=== PATIENT | male | born 1960 | race Caucasian/White ===

== ENCOUNTER → 2018-04-02 | Outpatient (CLI) | payer BC ==
[2018-04-02 12:33] LABS: Basophils % (A) 0 %; Eosinophils # (A) 0.2 k/uL (0-0.7); Eosinophils % (A) 4 %; HCT 30.6 % (39.0-53.0); HGB 9.7 gm/dL (13.0-17.5); Lymphocytes # (A) 0.8 k/uL (1.0-4.8); Lymphocytes % (A) 20 %; MCH 25.2 pg (25.0-35.0); MCHC 31.7 g/dL (31.0-37.0); MCV 79.5 fL (80.0-100.0); Mean Platelet Volume 7.1; Monocytes # (A) 0.2 k/uL (0-1.0); Monocytes % (A) 5 %; Neutrophils # (A) 2.8 k/uL (1.3-7.7); Neutrophils % (A) 69 %; Platelet Count 217 k/uL (150-450); RBC 3.85 m/uL (4.30-5.90); RDW 14.6 % (11.5-15.5)
[2018-04-02 12:53] LABS: Partial Thromboplastin Time 25.7 sec (22.0-30.0); Prothrombin Time 10.4 sec (9.0-12.0)
[2018-04-02 19:28] LABS: Anion Gap 7.2 mmol/L (4.00-12.00); Carbon Dioxide 25.8 mmol/L (21.6-31.8); Potassium 4.8 mmol/L (3.5-5.5)
== END ==
LOC: LABWHC1 11:33
PROVIDERS: ATTEND Internal Medicine
DX: R80.9 Proteinuria, unspecified (principal)
CPT/HCPCS: 36415; 80051; 82565; 84520; 85025; 85610; 85730

== ENCOUNTER → 2018-05-13 | Outpatient (CLI) | payer BC ==
[2018-05-13 13:36] LABS: Basophils % (A) 0 %; Eosinophils # (A) 0.1 k/uL (0-0.7); Eosinophils % (A) 2 %; HCT 32.5 % (39.0-53.0); HGB 10.1 gm/dL (13.0-17.5); Lymphocytes # (A) 0.8 k/uL (1.0-4.8); Lymphocytes % (A) 10 %; MCH 25.2 pg (25.0-35.0); MCHC 31.2 g/dL (31.0-37.0); MCV 80.9 fL (80.0-100.0); Mean Platelet Volume 6.7; Monocytes # (A) 0.3 k/uL (0-1.0); Monocytes % (A) 4 %; Neutrophils # (A) 6.4 k/uL (1.3-7.7); Neutrophils % (A) 83 %; Platelet Count 208 k/uL (150-450); RBC 4.02 m/uL (4.30-5.90); RDW 15.3 % (11.5-15.5); WBC 7.7 k/uL (3.8-10.6)
[2018-05-13 13:41] LABS: Partial Thromboplastin Time 24.7 sec (22.0-30.0); Prothrombin Time 10.5 sec (9.0-12.0)
[2018-05-13 18:50] LABS: Anion Gap 6.7 mmol/L (4.00-12.00); Carbon Dioxide 25.3 mmol/L (21.6-31.8)
== END | disposition home or self-care (01) ==
LOC: LABWHC1 12:21
PROVIDERS: ATTEND Internal Medicine
DX: R80.9 Proteinuria, unspecified (principal)
CPT/HCPCS: 36415; 80051; 82565; 84520; 85025; 85610; 85730; 86850; 86900; 86901

== ENCOUNTER → 2018-05-14 | Day surgery (SDC) | payer BC ==
[~2018-05-14] MED LIST: ALPRAZolam 0.5 MG TAB PO STA; DESMOPRESSIN ACETATE 22 MCG in SODIUM CHLORIDE 0.9% 50 ML IVPB ONE; DESMOPRESSIN ACETATE 4 MCG/ML VIAL (MDV) IVPB ONE
[2018-05-14 10:29] VITALS: RESP 16; TEMP 97.6
[2018-05-14 11:53] VITALS: BP 146/86; PULSE 78
--- NOTE | 2018-05-14 14:52 | CT ---
DATE OF EXAM: 05/14/2018 COMPARISON: NONE CT DLP: 1570 mGycm HISTORY: Renal failure PROCEDURE: Maximal barrier technique was utilized. After informed consent, the skin overlying a suit able path to the right kidney was localized using CT guidance, the skin was prepped and draped. Lido frieda was used for local anesthesia. A skin dominick made with a scalpel. Using CT guidance, a 17-gauge needle was advanced into in position at the inferior cortex of the right kidney where coaxial placem ent of an 18-gauge needle was used and core biopsy obtained. Six passes made in total, 3 passes yiel ded only fat. Hemostasis was achieved. There was no immediate complication and patient remained in stable condition. Specimen submitted to Pathology. IMPRESSION: Status post CT guided core biopsy of right renal cortex, pathology pending. This procedu re performed by the undersigned.
== END ==
LOC: RADPROMAIN 08:02
PROVIDERS: ATTEND Internal Medicine Nephrology
DX: N26.9 Renal sclerosis, unspecified (principal); E11.21 Type 2 diabetes mellitus with diabetic nephropathy
CPT/HCPCS: 36415; 50200; 77012; J2597; 86850; 86900; 86901

== ENCOUNTER → 2018-07-01 | Outpatient (CLI) | payer BC ==
[2018-07-01 16:02] LABS: HCT 33.4 % (39.0-53.0); HGB 10.5 gm/dL (13.0-17.5); MCH 25.3 pg (25.0-35.0); MCHC 31.4 g/dL (31.0-37.0); MCV 80.7 fL (80.0-100.0); Mean Platelet Volume 7.1; Platelet Count 238 k/uL (150-450); RBC 4.13 m/uL (4.30-5.90); WBC 6.5 k/uL (3.8-10.6)
[2018-07-01 16:15] LABS: Appearance,Urine Clear (Clear); Bilirubin,Urine Negative (Negative); Blood,Urine Trace (Negative); Color,Urine Light Yellow; Glucose,Urine (UA) Negative (Negative); Ketones,Urine Negative (Negative); Leukocyte Esterase,Urine Negative (Negative); Mucus,Urine Rare /hpf; Nitrite,Urine Negative (Negative); Protein,Urine 1+ (Negative); RBC,Urine 3 /hpf (0-5); Urobilinogen,Urine <2.0 mg/dL (<2.0); WBC,Urine <1 /hpf (0-5)
[2018-07-02 00:36] LABS: Parathyroid Hormone Intact 78.8 pg/mL (14.0-72.0)
[2018-07-02 01:26] LABS: Hemoglobin A1C 7.3 % (4.0-6.0)
[2018-07-02 02:12] LABS: Vitamin D 25 Hydroxy 25.2 ng/mL (30.0-100.0)
[2018-07-02 02:54] LABS: Albumin 4.1 g/dL (3.80-4.90); Anion Gap 9.8 mmol/L (4.00-12.00); Calcium 9.2 mg/dL (8.7-10.3); Carbon Dioxide 22.2 mmol/L (21.6-31.8); Phosphorus 3.9 mg/dL (2.4-5.1); Potassium 4.6 mmol/L (3.5-5.5); Uric Acid 6.6 mg/dL (3.7-8.7)
[2018-07-02 07:29] LABS: Creatinine,Urine Random 72.6 mg/dL
[2018-07-02 07:45] LABS: Total Protein,Urine Random 89.4 mg/dL (0.0-13.5)
[2018-07-02 15:50] LABS: Iron Saturation 14.76 (15.00-50.00)
== END | disposition home or self-care (01) ==
LOC: LABWHC1 14:57
PROVIDERS: ATTEND Nurse Practitioner Family
DX: E55.9 Vitamin D deficiency, unspecified (principal); E79.0 Hyperuricemia without signs of inflammatory arthritis and tophaceous disease; D50.9 Iron deficiency anemia, unspecified; E11.22 Type 2 diabetes mellitus with diabetic chronic kidney disease; N18.3 Chronic kidney disease, stage 3 (moderate); D63.1 Anemia in chronic kidney disease; N39.0 Urinary tract infection, site not specified; N25.81 Secondary hyperparathyroidism of renal origin
CPT/HCPCS: 36415; 80048; 81001; 82040; 82306; 82570; 82728; 83036; 83540; 83550; 83735; 83970; 84100; 84156; 84550; 85027

== ENCOUNTER → 2018-10-07 | Outpatient (CLI) | payer BC ==
[2018-10-07 11:23] LABS: HCT 31.7 % (39.0-53.0); HGB 9.8 gm/dL (13.0-17.5); MCH 25.6 pg (25.0-35.0); MCV 82.4 fL (80.0-100.0); Mean Platelet Volume 7.2; Platelet Count 193 k/uL (150-450); RBC 3.84 m/uL (4.30-5.90); RDW 14.7 % (11.5-15.5); WBC 5.3 k/uL (3.8-10.6)
[2018-10-07 11:30] LABS: Appearance,Urine Clear (Clear); Bilirubin,Urine Negative (Negative); Blood,Urine Trace (Negative); Color,Urine Light Yellow; Glucose,Urine (UA) Negative (Negative); Ketones,Urine Negative (Negative); Leukocyte Esterase,Urine Negative (Negative); Mucus,Urine Rare /hpf; Nitrite,Urine Negative (Negative); PH, Urine 5.5 (5.0-8.0); Protein,Urine 1+ (Negative); RBC,Urine <1 /hpf (0-5); Specific Gravity,Urine 1.012 (1.001-1.035); Urobilinogen,Urine <2.0 mg/dL (<2.0); WBC,Urine <1 /hpf (0-5)
[2018-10-07 16:37] LABS: Iron Saturation 16.81 (15.00-50.00)
[2018-10-07 16:43] LABS: African American GFR (CKD) 44.1 (60.0-200.0); Albumin 3.7 g/dL (3.80-4.90); Albumin/Globulin Ratio 1.32 (1.60-3.17); Anion Gap 3.4 mmol/L (4.00-12.00); BUN/Creat Ratio 26.32 Ratio (12.00-20.00); Calcium 8.7 mg/dL (8.7-10.3); Carbon Dioxide 25.6 mmol/L (21.6-31.8); Globulin 2.8 g/dL (1.6-3.3); Phosphorus 3.7 mg/dL (2.4-5.1); Potassium 4.6 mmol/L (3.5-5.5); Total Bilirubin 0.7 mg/dL (0.3-1.2); Total Protein 6.5 g/dL (6.2-8.2); Uric Acid 6.9 mg/dL (3.7-8.7)
[2018-10-07 16:45] LABS: Vitamin D 25 Hydroxy 23.5 ng/mL (30.0-100.0)
[2018-10-07 16:55] LABS: Parathyroid Hormone Intact 87.2 pg/mL (14.0-72.0)
== END | disposition home or self-care (01) ==
LOC: LABWHC1 10:33
PROVIDERS: ATTEND Internal Medicine
DX: E55.9 Vitamin D deficiency, unspecified (principal); N18.3 Chronic kidney disease, stage 3 (moderate); D63.1 Anemia in chronic kidney disease; N39.0 Urinary tract infection, site not specified; E21.3 Hyperparathyroidism, unspecified; M10.9 Gout, unspecified; R80.9 Proteinuria, unspecified
CPT/HCPCS: 36415; 80053; 81001; 82043; 82306; 82570; 82728; 83540; 83550; 83735; 83970; 84100; 84550; 85027

== ENCOUNTER → 2019-02-08 | Outpatient (CLI) | payer BC ==
[2019-02-08 12:00] LABS: HCT 30.5 % (39.0-53.0); HGB 9.6 gm/dL (13.0-17.5); Hypochromasia Slight; MCH 25.9 pg (25.0-35.0); MCHC 31.6 g/dL (31.0-37.0); MCV 81.8 fL (80.0-100.0); Mean Platelet Volume 5.9; Platelet Count 249 k/uL (150-450); RBC 3.73 m/uL (4.30-5.90); RDW 13.9 % (11.5-15.5); WBC 5.4 k/uL (3.8-10.6)
[2019-02-08 12:33] LABS: Appearance,Urine Clear (Clear); Bilirubin,Urine Negative (Negative); Blood,Urine Negative (Negative); Color,Urine Light Yellow; Glucose,Urine (UA) Negative (Negative); Ketones,Urine Negative (Negative); Leukocyte Esterase,Urine Negative (Negative); Nitrite,Urine Negative (Negative); PH, Urine 6.5 (5.0-8.0); Protein,Urine 1+ (Negative); Specific Gravity,Urine 1.011 (1.001-1.035); Urobilinogen,Urine <2.0 mg/dL (<2.0); WBC,Urine <1 /hpf (0-5)
[2019-02-08 23:01] LABS: African American GFR (CKD) 41.4 (60.0-200.0); Albumin 4.1 g/dL (3.80-4.90); Albumin/Globulin Ratio 1.46 (1.60-3.17); Anion Gap 5.7 mmol/L (4.00-12.00); BUN/Creat Ratio 18.5 Ratio (12.00-20.00); Carbon Dioxide 27.3 mmol/L (21.6-31.8); Globulin 2.8 g/dL (1.6-3.3); Magnesium 2.1 mg/dL (1.5-2.4); Phosphorus 3.9 mg/dL (2.4-5.1); Potassium 4.9 mmol/L (3.5-5.5); Total Bilirubin 0.6 mg/dL (0.3-1.2); Total Protein 6.9 g/dL (6.2-8.2); Uric Acid 6.5 mg/dL (3.7-8.7)
[2019-02-08 23:05] LABS: Iron Saturation 9.85 (15.00-50.00)
[2019-02-08 23:07] LABS: Ferritin 228.1 ng/mL (22.0-322.0); Vitamin D 25 Hydroxy 25.8 ng/mL (30.0-100.0)
== END | disposition home or self-care (01) ==
LOC: LABWHC1 11:33
PROVIDERS: ATTEND Nurse Practitioner Family
DX: N18.3 Chronic kidney disease, stage 3 (moderate) (principal)
CPT/HCPCS: 36415; 80053; 81001; 82043; 82306; 82570; 82728; 83540; 83550; 83735; 83970; 84100; 84550; 85027

== ENCOUNTER → 2019-05-14 | Outpatient (CLI) | payer BC ==
[2019-05-14 11:50] LABS: HGB 11.1 gm/dL (13.0-17.5); Hypochromasia Slight; MCH 26.8 pg (25.0-35.0); MCHC 32.6 g/dL (31.0-37.0); MCV 82.2 fL (80.0-100.0); Mean Platelet Volume 7.3; Platelet Count 226 k/uL (150-450); RBC 4.14 m/uL (4.30-5.90); RDW 14.4 % (11.5-15.5); WBC 5.7 k/uL (3.8-10.6)
[2019-05-14 11:56] LABS: Appearance,Urine Clear (Clear); Bilirubin,Urine Negative (Negative); Blood,Urine Negative (Negative); Color,Urine Light Yellow; Glucose,Urine (UA) Negative (Negative); Ketones,Urine Negative (Negative); Leukocyte Esterase,Urine Negative (Negative); Mucus,Urine Rare /hpf; Nitrite,Urine Negative (Negative); Protein,Urine 1+ (Negative); RBC,Urine 2 /hpf (0-5); Specific Gravity,Urine 1.011 (1.001-1.035); Urobilinogen,Urine <2.0 mg/dL (<2.0); WBC,Urine 1 /hpf (0-5)
[2019-05-14 16:17] LABS: % Iron Saturation 16.59 (15.00-50.00); African American GFR (CKD) 38.8 (60.0-200.0); Albumin 4.2 g/dL (3.80-4.90); Albumin/Globulin Ratio 1.56 (1.60-3.17); Anion Gap 5.6 mmol/L (4.00-12.00); BUN/Creat Ratio 20.48 Ratio (12.00-20.00); Calcium 9.1 mg/dL (8.7-10.3); Carbon Dioxide 26.4 mmol/L (21.6-31.8); Chol/HDL Ratio 3.66; Globulin 2.7 g/dL (1.6-3.3); LDL Cholesterol,Calculated 85.4 mg/dL (0.0-131.0); Magnesium 2.1 mg/dL (1.5-2.4); Non-African American GFR(CKD) 33.4 (60.0-200.0); Phosphorus 4.2 mg/dL (2.4-5.1); Potassium 4.7 mmol/L (3.5-5.5); Total Bilirubin 0.7 mg/dL (0.3-1.2); Total Protein 6.9 g/dL (6.2-8.2); Uric Acid 6.4 mg/dL (3.7-8.7); VLDL Calculation 23.6 mg/dL (5.00-40.00)
[2019-05-14 16:57] LABS: Ferritin 424.8 ng/mL (22.0-322.0); Urine Creatinine 72.2 mg/dL
== END | disposition home or self-care (01) ==
LOC: LABWHC1 11:20
PROVIDERS: ATTEND Nurse Practitioner Family
DX: E11.9 Type 2 diabetes mellitus without complications (principal); E78.5 Hyperlipidemia, unspecified; D64.9 Anemia, unspecified; N39.0 Urinary tract infection, site not specified; N25.81 Secondary hyperparathyroidism of renal origin; E55.9 Vitamin D deficiency, unspecified; N18.3 Chronic kidney disease, stage 3 (moderate); D50.9 Iron deficiency anemia, unspecified; R80.9 Proteinuria, unspecified
CPT/HCPCS: 36415; 80053; 80061; 81001; 82043; 82306; 82570; 82728; 83540; 83550; 83735; 83970; 84100; 84550; 85027

== ENCOUNTER → 2019-09-22 | Outpatient (CLI) | payer BC ==
[2019-09-22 09:37] LABS: HCT 34.7 % (39.0-53.0); HGB 10.7 gm/dL (13.0-17.5); Hypochromasia Slight; MCH 25.3 pg (25.0-35.0); MCHC 30.7 g/dL (31.0-37.0); MCV 82.5 fL (80.0-100.0); Mean Platelet Volume 7.6; Platelet Count 188 k/uL (150-450); RDW 14.9 % (11.5-15.5); WBC 7.2 k/uL (3.8-10.6)
[2019-09-22 09:41] LABS: Appearance,Urine Clear (Clear); Bilirubin,Urine Negative (Negative); Blood,Urine Negative (Negative); Color,Urine Light Yellow; Glucose,Urine (UA) Negative (Negative); Hyaline Casts,Urine 1 /lpf (0-2); Ketones,Urine Negative (Negative); Leukocyte Esterase,Urine Negative (Negative); Nitrite,Urine Negative (Negative); Protein,Urine 1+ (Negative); RBC,Urine <1 /hpf (0-5); Urobilinogen,Urine <2.0 mg/dL (<2.0); WBC,Urine <1 /hpf (0-5)
[2019-09-22 17:28] LABS: Urine Creatinine 49.3 mg/dL
[2019-09-22 17:29] LABS: % Iron Saturation 14.81 (15.00-50.00); African American GFR (CKD) 46.7 (60.0-200.0); Albumin 3.8 g/dL (3.80-4.90); Albumin/Globulin Ratio 1.31 (1.60-3.17); BUN/Creat Ratio 22.22 Ratio (12.00-20.00); Calcium 9.1 mg/dL (8.7-10.3); Globulin 2.9 g/dL (1.6-3.3); Non-African American GFR(CKD) 40.3 (60.0-200.0); Potassium 5.3 mmol/L (3.5-5.5); Total Bilirubin 0.8 mg/dL (0.3-1.2); Total Protein 6.7 g/dL (6.2-8.2); Uric Acid 7.1 mg/dL (3.7-8.7)
[2019-09-22 17:38] LABS: Ferritin 295.3 ng/mL (22.0-322.0)
== END | disposition home or self-care (01) ==
LOC: LABWHC1 08:20
PROVIDERS: ATTEND Internal Medicine
DX: N18.3 Chronic kidney disease, stage 3 (moderate) (principal); D63.1 Anemia in chronic kidney disease; N39.0 Urinary tract infection, site not specified; N25.81 Secondary hyperparathyroidism of renal origin; M10.9 Gout, unspecified; E55.9 Vitamin D deficiency, unspecified; R80.9 Proteinuria, unspecified
CPT/HCPCS: 36415; 80053; 81001; 82043; 82306; 82570; 82728; 83540; 83550; 83735; 83970; 84100; 84550; 85027

== ENCOUNTER → 2020-05-05 | Outpatient (CLI) | payer BC ==
[2020-05-05 07:38] LABS: HCT 35.7 % (39.0-53.0); MCH 27.9 pg (25.0-35.0); MCHC 33.5 g/dL (31.0-37.0); MCV 83.2 fL (80.0-100.0); Mean Platelet Volume 7.3; Platelet Count 195 k/uL (150-450); RBC 4.29 m/uL (4.30-5.90); RDW 13.5 % (11.5-15.5); WBC 6.7 k/uL (3.8-10.6)
[2020-05-05 07:54] LABS: Appearance,Urine Clear (Clear); Bilirubin,Urine Negative (Negative); Blood,Urine Negative (Negative); Color,Urine Light Yellow; Glucose,Urine (UA) Negative (Negative); Hyaline Casts,Urine 3 /lpf (0-2); Ketones,Urine Negative (Negative); Leukocyte Esterase,Urine Negative (Negative); Mucus,Urine Rare /hpf; Nitrite,Urine Negative (Negative); Protein,Urine 1+ (Negative); RBC,Urine 2 /hpf (0-5); Specific Gravity,Urine 1.011 (1.001-1.035); Urobilinogen,Urine <2.0 mg/dL (<2.0); WBC,Urine 1 /hpf (0-5)
[2020-05-05 13:24] LABS: % Iron Saturation 16.09 (15.00-50.00); African American GFR (CKD) 40.8 (60.0-200.0); Albumin 4.1 g/dL (3.80-4.90); Albumin/Globulin Ratio 1.41 (1.60-3.17); Anion Gap 7.2 mmol/L (4.00-12.00); Calcium 9.6 mg/dL (8.7-10.3); Carbon Dioxide 26.8 mmol/L (21.6-31.8); Globulin 2.9 g/dL (1.6-3.3); Magnesium 2.1 mg/dL (1.5-2.4); Non-African American GFR(CKD) 35.2 (60.0-200.0); Phosphorus 4.8 mg/dL (2.4-5.1); Potassium 5.6 mmol/L (3.5-5.5); Total Bilirubin 0.8 mg/dL (0.2-1.2)
[2020-05-05 13:31] LABS: Ferritin 208.4 ng/mL (22.0-322.0)
[2020-05-05 13:41] LABS: Hemoglobin A1C 8.7 % (4.0-6.0)
[2020-05-05 20:24] LABS: Urine Creatinine 66.5 mg/dL
== END | disposition home or self-care (01) ==
LOC: LABWHC1 07:13
PROVIDERS: ATTEND Internal Medicine
DX: N39.0 Urinary tract infection, site not specified (principal); N18.30 Chronic kidney disease, stage 3 unspecified; E55.9 Vitamin D deficiency, unspecified; D63.1 Anemia in chronic kidney disease; N25.81 Secondary hyperparathyroidism of renal origin; E11.65 Type 2 diabetes mellitus with hyperglycemia; E11.22 Type 2 diabetes mellitus with diabetic chronic kidney disease; M10.9 Gout, unspecified; R80.9 Proteinuria, unspecified
CPT/HCPCS: 36415; 80053; 81001; 82043; 82306; 82570; 82728; 83036; 83540; 83550; 83735; 83970; 84100; 84550; 85027

== ENCOUNTER → 2020-05-12 | Outpatient (CLI) | payer BC ==
[2020-05-12 15:51] LABS: African American GFR (CKD) 38.5 (60.0-200.0); Anion Gap 7.2 mmol/L (4.00-12.00); BUN/Creat Ratio 19.52 Ratio (12.00-20.00); Calcium 9.1 mg/dL (8.7-10.3); Carbon Dioxide 26.8 mmol/L (21.6-31.8); Non-African American GFR(CKD) 33.2 (60.0-200.0); Potassium 5.2 mmol/L (3.5-5.5)
== END | disposition home or self-care (01) ==
LOC: LABWHC1 08:20
PROVIDERS: ATTEND Internal Medicine
DX: N18.30 Chronic kidney disease, stage 3 unspecified (principal)
CPT/HCPCS: 36415; 80048

== ENCOUNTER → 2020-05-21 | Outpatient (CLI) | payer BC ==
[2020-05-21 21:53] LABS: African American GFR (CKD) 40.8 (60.0-200.0); Albumin/Globulin Ratio 1.48 (1.60-3.17); Anion Gap 7.5 mmol/L (4.00-12.00); Carbon Dioxide 25.5 mmol/L (21.6-31.8); Globulin 2.7 g/dL (1.6-3.3); Non-African American GFR(CKD) 35.2 (60.0-200.0); Potassium 4.5 mmol/L (3.5-5.5); Total Bilirubin 0.8 mg/dL (0.2-1.2); Total Protein 6.7 g/dL (6.2-8.2)
== END | disposition home or self-care (01) ==
LOC: LABWHC1 09:46
PROVIDERS: ATTEND Nurse Practitioner Family
DX: N18.32 Chronic kidney disease, stage 3b (principal)
CPT/HCPCS: 36415; 80053

== ENCOUNTER → 2020-07-23 | Outpatient (CLI) | payer BC ==
[2020-07-23 10:20] LABS: Appearance,Urine Clear (Clear); Bilirubin,Urine Negative (Negative); Blood,Urine Negative (Negative); Color,Urine Light Yellow; Glucose,Urine (UA) Negative (Negative); Ketones,Urine Negative (Negative); Leukocyte Esterase,Urine Negative (Negative); Nitrite,Urine Negative (Negative); Protein,Urine 2+ (Negative); Specific Gravity,Urine 1.011 (1.001-1.035); Urobilinogen,Urine <2.0 mg/dL (<2.0); WBC,Urine 1 /hpf (0-5)
[2020-07-23 14:34] LABS: HCT 37.5 % (39.6-50.0); HGB 11.5 g/dL (13.0-17.0); MCH 26.3 pg (27.0-32.0); MCHC 30.7 g/dL (32.0-37.0); MCV 85.6 fL (80.0-97.0); Mean Platelet Volume 10.5 fL (9.5-12.2); Platelet Count 212 X 10*3/uL (140-440); RBC 4.38 X 10*6/uL (4.40-5.60); RDW 13.2 % (11.5-14.5)
[2020-07-23 16:41] LABS: % Iron Saturation 17.6 (15.00-50.00); African American GFR (CKD) 40.8 (60.0-200.0); Albumin 4.1 g/dL (3.80-4.90); Albumin/Globulin Ratio 1.37 (1.60-3.17); BUN/Creat Ratio 21.5 Ratio (12.00-20.00); Calcium 9.5 mg/dL (8.7-10.3); Magnesium 2.1 mg/dL (1.5-2.4); Non-African American GFR(CKD) 35.2 (60.0-200.0); Phosphorus 4.2 mg/dL (2.4-5.1); Total Bilirubin 0.9 mg/dL (0.2-1.2); Total Protein 7.1 g/dL (6.2-8.2); Uric Acid 6.9 mg/dL (3.7-8.7)
[2020-07-23 16:50] LABS: Ferritin 174.2 ng/mL (22.0-322.0)
[2020-07-23 17:58] LABS: Urine Creatinine 55.6 mg/dL
== END | disposition home or self-care (01) ==
LOC: LABWHC1 09:27
PROVIDERS: ATTEND Nurse Practitioner Family
DX: N39.0 Urinary tract infection, site not specified (principal); N18.32 Chronic kidney disease, stage 3b; D63.1 Anemia in chronic kidney disease; E83.39 Other disorders of phosphorus metabolism; E21.3 Hyperparathyroidism, unspecified; E55.9 Vitamin D deficiency, unspecified; M10.9 Gout, unspecified; R80.9 Proteinuria, unspecified
CPT/HCPCS: 36415; 80053; 81001; 82043; 82306; 82570; 82728; 83540; 83550; 83735; 83970; 84100; 84550; 85027

== ENCOUNTER → 2020-10-21 | Outpatient (CLI) | payer BC ==
[2020-10-21 08:43] LABS: Appearance,Urine Clear (Clear); Bilirubin,Urine Negative (Negative); Blood,Urine Negative (Negative); Color,Urine Light Yellow; Glucose,Urine (UA) Negative (Negative); Ketones,Urine Negative (Negative); Leukocyte Esterase,Urine Negative (Negative); Mucus,Urine Rare /hpf; Nitrite,Urine Negative (Negative); Protein,Urine 1+ (Negative); RBC,Urine 2 /hpf (0-5); Specific Gravity,Urine 1.006 (1.001-1.035); Urobilinogen,Urine <2.0 mg/dL (<2.0); WBC,Urine <1 /hpf (0-5)
[2020-10-21 13:02] LABS: Urine Creatinine 38.2 mg/dL
[2020-10-21 14:11] LABS: % Iron Saturation 16.73 (15.00-50.00); African American GFR (CKD) 34.5 (60.0-200.0); Albumin/Globulin Ratio 1.33 (1.60-3.17); Anion Gap 4.9 mmol/L (4.00-12.00); BUN/Creat Ratio 22.17 Ratio (12.00-20.00); Calcium 9.2 mg/dL (8.7-10.3); Carbon Dioxide 25.1 mmol/L (21.6-31.8); Magnesium 2.1 mg/dL (1.5-2.4); Non-African American GFR(CKD) 29.8 (60.0-200.0); Phosphorus 4.3 mg/dL (2.4-5.1); Potassium 4.7 mmol/L (3.5-5.5); Total Bilirubin 0.9 mg/dL (0.3-1.2); Uric Acid 6.5 mg/dL (3.7-8.7)
[2020-10-21 14:42] LABS: HCT 35.4 % (39.6-50.0); HGB 10.9 g/dL (13.0-17.0); MCHC 30.8 g/dL (32.0-37.0); MCV 84.5 fL (80.0-97.0); Mean Platelet Volume 10.7 fL (9.5-12.2); Platelet Count 190 X 10*3/uL (140-440); RBC 4.19 X 10*6/uL (4.40-5.60); RDW 14.4 % (11.5-14.5); WBC 6.22 X 10*3/uL (4.50-10.00)
== END | disposition home or self-care (01) ==
LOC: LABWHC1 08:11
PROVIDERS: ATTEND Internal Medicine
DX: N39.0 Urinary tract infection, site not specified (principal); E11.22 Type 2 diabetes mellitus with diabetic chronic kidney disease; N18.32 Chronic kidney disease, stage 3b; N25.81 Secondary hyperparathyroidism of renal origin; E55.9 Vitamin D deficiency, unspecified; D64.9 Anemia, unspecified; M10.9 Gout, unspecified
CPT/HCPCS: 36415; 80053; 81001; 82043; 82306; 82570; 82728; 83540; 83550; 83735; 83970; 84100; 84550; 85027

== ENCOUNTER → 2021-01-21 | Outpatient (CLI) | payer BC ==
--- NOTE | 2021-01-21 16:26 | US ---
EXAMINATION TYPE: US kidneys/renal and bladder DATE OF EXAM: 01/21/2021 COMPARISON: NONE CLINICAL HISTORY: N18.3 stage 3 kidney ds. EXAM MEASUREMENTS: Right Kidney: 11.1x5.3x5.0 cm Left Kidney: 11.0x5.7x4.5 cm Right Kidney: wnl Left Kidney: wnl Bladder: wnl Bilateral Jets seen: Yes IMPRESSION: 1. Normal renal ultrasound
== END | disposition home or self-care (01) ==
LOC: RADUSWWP 14:44
PROVIDERS: ATTEND Nurse Practitioner Family
DX: N18.30 Chronic kidney disease, stage 3 unspecified (principal)
CPT/HCPCS: 76770

== ENCOUNTER → 2021-02-04 | Outpatient (CLI) | payer BC ==
[2021-02-04 15:22] LABS: Appearance,Urine Clear (Clear); Bilirubin,Urine Negative (Negative); Blood,Urine Negative (Negative); Color,Urine Light Yellow; Glucose,Urine (UA) Negative (Negative); Ketones,Urine Negative (Negative); Leukocyte Esterase,Urine Negative (Negative); Nitrite,Urine Negative (Negative); PH, Urine 6.5 (5.0-8.0); Protein,Urine 1+ (Negative); RBC,Urine <1 /hpf (0-5); Specific Gravity,Urine 1.007 (1.001-1.035); Urobilinogen,Urine <2.0 mg/dL (<2.0); WBC,Urine <1 /hpf (0-5)
[2021-02-04 22:33] LABS: Basophils # (A) 0.03 X 10*3/uL (0.00-0.10); Basophils % (A) 0.5 %; Eosinophils # (A) 0.19 X 10*3/uL (0.04-0.35); Eosinophils % (A) 3.2 %; HCT 36.1 % (39.6-50.0); HGB 11.2 g/dL (13.0-17.0); Lymphocytes # (A) 1.25 X 10*3/uL (0.90-5.00); Lymphocytes % (A) 21.1 %; MCH 26.2 pg (27.0-32.0); MCV 84.5 fL (80.0-97.0); Mean Platelet Volume 10.9 fL (9.5-12.2); Monocytes # (A) 0.48 X 10*3/uL (0.20-1.00); Monocytes % (A) 8.1 %; Neutrophils # (A) 3.97 X 10*3/uL (1.80-7.70); Neutrophils % (A) 66.9 %; Platelet Count 191 X 10*3/uL (140-440); RBC 4.27 X 10*6/uL (4.40-5.60); RDW 14.3 % (11.5-14.5); WBC 5.93 X 10*3/uL (4.50-10.00)
[2021-02-05 00:39] LABS: % Iron Saturation 15.31 (15.00-50.00); African American GFR (CKD) 39.2 (60.0-200.0); Albumin/Globulin Ratio 1.31 (1.60-3.17); Anion Gap 10.7 mmol/L (4.00-12.00); BUN/Creat Ratio 21.06 Ratio (12.00-20.00); Blood Urea Nitrogen 43.6 mg/dL (9.0-27.0); Calcium 8.9 mg/dL (8.7-10.3); Carbon Dioxide 23.7 mmol/L (21.6-31.8); Magnesium 2.2 mg/dL (1.5-2.4); Non-African American GFR(CKD) 33.8 (60.0-200.0); Phosphorus 3.9 mg/dL (2.4-5.1); Potassium 4.8 mmol/L (3.5-5.5); Uric Acid 6.6 mg/dL (3.7-8.7)
[2021-02-05 00:40] LABS: Total Bilirubin 0.8 mg/dL (0.30-1.20)
[2021-02-05 06:00] LABS: Urine Creatinine 31.6 mg/dL (39.0-259.0)
== END | disposition home or self-care (01) ==
LOC: LABWHC1 14:38
PROVIDERS: ATTEND Nurse Practitioner Family
DX: N18.32 Chronic kidney disease, stage 3b (principal); D64.9 Anemia, unspecified; N39.0 Urinary tract infection, site not specified; M10.9 Gout, unspecified; N25.81 Secondary hyperparathyroidism of renal origin; R80.9 Proteinuria, unspecified
CPT/HCPCS: 36415; 80053; 81001; 82043; 82570; 82728; 83540; 83550; 83735; 83970; 84100; 84550; 85025

== ENCOUNTER 2021-06-08 13:37 | Emergency (ER) | payer BC ==
[2021-06-08 13:49] VITALS: BP 148/81; PULSE 94; RESP 20; TEMP 97.8
--- NOTE | 2021-06-08 14:10 | XR ---
EXAMINATION TYPE: XR hand complete RT DATE OF EXAM: 06/08/2021 CLINICAL HISTORY: pain TECHNIQUE: Frontal, lateral and oblique images of the right hand are obtained. COMPARISON: None. FINDINGS: There is no acute fracture/dislocation evident. The joint spaces appear within normal limi ts. Soft tissue swelling overlying the dorsum of the right hand. IMPRESSION: There is no acute fracture or dislocation ICD 10 NO FRACTURE, INITIAL EVALUATION
[2021-06-08] MEDS ORDERED: DIPH,PERTUS(ACELL)TETVAC-LF 0.5 ML VIAL IM ONE (14:26)
[2021-06-08] MEDS ORDERED: LIDOCAINE 1% INJ 10MG/ML (20 ML MDV) SQ ONE (14:26)
--- NOTE | 2021-06-08 14:32 | ED ---
General Adult HPI - General Chief complaint: Extremity Injury, Upper Stated complaint: hand injury Time Seen by Provider: 06/08/21 14:11 Source: patient Mode of arrival: ambulatory Limitations: no limitations - History of Present Illness Initial comments: Dictation was produced using Jiff dictation software. please excuse any grammatical, word or spelling errors. Chief Complaint: 61-year-old male presents emergency department for crush injury of the right hand. History of Present Illness: Is a 61-year-old male who presents emergency Department with crush injury to the right hand. Patient states that at around 10:30 AM he got his hand caught in a log splitter. Patient does not know when his last tetanus was. He continued to finish splitting logs and decided come to the emergency department hours later. Patient denies any numbness and paresthesias to his hand. He noted noticed laceration to his hand. Patient states that after the inciting event he did notice that his fifth digit was crooked. He straightened it out on his own. The ROS documented in this emergency department record has been reviewed and confirmed by me. Those systems with pertinent positive or negative responses have been documented in the HPI. All other systems are other negative and/or noncontributory. PHYSICAL EXAM: General Impression: Alert and oriented x3, not in acute distress HEENT: Normocephalic atraumatic, extra-ocular movements intact, pupils equal and reactive to light bilaterally, mucous membranes moist. Cardiovascular: Heart regular rate and rhythm Chest: Able to complete full sentences, no retractions, no tachypnea Musculoskeletal: Pulses present and equal in all extremities, no peripheral edema Motor: no focal deficits noted Right hand: Multiple lacerations with largest laceration measuring approximately 8 cm. laceration extends from the distal palm up into the webspace fourth and third digits. There also is a stellate laceration at the proximal area of the hypothenar eminence and tip of the fifth digit Neurological: CN II-XII grossly intact, no focal motor or sensory deficits noted Skin: Intact with no visualized rashes Psych: Normal affect and mood ED course: 61-year-old male presents to the emergency department for crush injury of the right hand. Patient has laceration. There is suspicion given history present no step patient dislocated his fifth digit. An x-ray is unremarkable. Vital signs are within acceptable limits. Patient does have allergies to medications. laceration repair performed at bedside Patient had his stitches removed in 10-14 days return precautions discussed. Splint applied to patient's right fifth digit. Advised follow-up with primary care doctor. - Related Data Home Medications Medication Instructions Recorded Confirmed Ergocalciferol (Vitamin D2) 50,000 unit PO Q30D 03/08/18 11/02/20 [Drisdol] Ferrous Sulfate [Feosol] 325 mg PO BID 03/08/18 11/02/20 Insulin Aspart [NovoLOG Flexpen] 7 units SQ W/SUPPER 03/08/18 11/02/20 Sildenafil Citrate [Sildenafil] 20 mg PO DAILY 03/08/18 11/02/20 allopurinoL [Zyloprim] 100 mg PO Q7D 03/08/18 11/02/20 amLODIPine [Norvasc] 5 mg PO DAILY 03/08/18 11/02/20 calcitrioL [Calcitriol] 0.25 mcg PO Q7D 03/08/18 11/02/20 carvediloL [Coreg] 3.125 mg PO BID 03/08/18 11/02/20 Insulin Aspart [NovoLOG Flexpen] 4 units INJ AC-LUNCH 03/10/19 11/02/20 Previous Rx's Medication Instructions Recorded lisinopriL [Zestril] 10 mg PO DAILY #90 tab 10/27/13 Allergies Allergy/AdvReac Type Severity Reaction Status Date / Time No Known Allergies Allergy Verified 06/08/21 13:46 Review of Systems ROS Statement: Those systems with pertinent positive or pertinent negative responses have been documented in the HPI. ROS Other: All systems not noted in ROS Statement are negative. Past Medical History Past Medical History: Blood Disorder, Diabetes Mellitus, Hypertension, Skin Disorder Additional Past Medical History / Comment(s): diabetic ulcers jose feet, iron infusion 3 weeks ago. IRON DEFICIENCY ANEMIA. History of Any Multi-Drug Resistant Organisms: None Reported Past Surgical History: Tonsillectomy Additional Past Surgical History / Comment(s): kidney biopsy Past Anesthesia/Blood Transfusion Reactions: No Reported Reaction Past Psychological History: No Psychological Hx Reported Smoking Status: Never smoker Past Alcohol Use History: Occasional Past Drug Use History: None Reported - Past Family History Mother Family Medical History: No Reported History General Exam Limitations: no limitations Course Vital Signs 02/16/22 13:46 Temperature 97.8 F Pulse Rate 94 Respiratory 20 Rate Blood Pressure 148/81 O2 Sat by Pulse 99 Oximetry Procedures - Laceration Laceration #1 Consent Obtained: verbal consent Indication: laceration Site: hand Size (cm): 10 Description: linear Depth: simple, single layer Anesthetic Used: lidocaine 1% Anesthesia Technique: local infiltration, nerve block Pre-repair: wound explored, irrigated extensively Size of Sutures: 3-0 Technique: simple, interrupted Patient Tolerated Procedure: well Disposition Clinical Impression: Hand laceration Disposition: HOME SELF-CARE Condition: Fair Instructions (If sedation given, give patient instructions): Care For Your Stitches (ED) Additional Instructions: suture removal in 10-14 days. seek medical attention if any signs of infection including worsening pain, purulent drainage and redness. Is patient prescribed a controlled substance at d/c from ED?: No Referrals: Yuliet Arenas MD [Primary Care Provider] - 1-2 days
[2021-06-08] MEDS ORDERED: BACITRACIN OINT 1 EACH PACKET TOPICAL ONE (16:50)
== END 2021-06-08 17:10 | disposition home or self-care (01) ==
LOC: EC 13:37
DX: S61.411A Laceration without foreign body of right hand, initial encounter (principal); E11.9 Type 2 diabetes mellitus without complications; Z23 Encounter for immunization; I10 Essential (primary) hypertension; Z72.89 Other problems related to lifestyle; Z79.4 Long term (current) use of insulin; W23.1XXA Caught, crushed, jammed, or pinched between stationary objects, initial encounter
CPT/HCPCS: 73130; 90715; 99283; 90471; 12044; J2001

== ENCOUNTER → 2021-06-16 | Outpatient (CLI) | payer BC ==
[2021-06-16 22:39] LABS: HCT 35.4 % (39.6-50.0); HGB 10.7 g/dL (13.0-17.0); MCH 25.8 pg (27.0-32.0); MCHC 30.2 g/dL (32.0-37.0); MCV 85.3 fL (80.0-97.0); Mean Platelet Volume 10.6 fL (9.5-12.2); NRBC Per 100 WBC 0 /100 WBCS (0.0-0.0); Platelet Count 194 X 10*3/uL (140-440); RBC 4.15 X 10*6/uL (4.40-5.60); RDW 13.8 % (11.5-14.5); WBC 6.12 X 10*3/uL (4.50-10.00)
[2021-06-16 23:24] LABS: Appearance,Urine Clear (Clear); Bacteria,Urine None Seen /HPF (None Seen); Bilirubin,Urine Negative (Negative); Blood,Urine Trace (Negative); Color,Urine Yellow (Yellow); Ketones,Urine Negative (Negative); Leukocyte Esterase,Urine Negative (Negative); Nitrite,Urine Negative (Negative); PH, Urine 6.5 (5.0-8.0); Protein,Urine 300 (Negative); RBC,Urine 0-2 /HPF (0-2); Specific Gravity,Urine 1.013 (1.001-1.030); Urobilinogen,Urine 0.2 (0.2,1.0); WBC,Urine 0-5 /HPF (0-5)
[2021-06-16 23:53] LABS: % Iron Saturation 14.82 (15.00-50.00); African American GFR (CKD) 35.4 (60.0-200.0); Albumin 3.9 g/dL (3.8-4.9); Albumin/Globulin Ratio 1.14 (1.60-3.17); Anion Gap 10.8 mmol/L (10.00-18.00); BUN/Creat Ratio 18.66 Ratio (12.00-20.00); Blood Urea Nitrogen 41.8 mg/dL (9.0-27.0); Calcium 9.2 mg/dL (8.7-10.3); Carbon Dioxide 22.3 mmol/L (20.0-27.5); Globulin 3.4 g/dL (1.6-3.3); Magnesium 2.4 mg/dL (1.5-2.4); Non-African American GFR(CKD) 30.5 (60.0-200.0); Phosphorus 3.8 mg/dL (2.4-5.1); Potassium 4.7 mmol/L (3.5-5.5); Total Bilirubin 0.8 mg/dL (0.30-1.20); Total Protein 7.3 g/dL (6.2-8.2); Uric Acid 6.6 mg/dL (3.7-8.7)
[2021-06-17 08:50] LABS: Urine Creatinine 47.4 mg/dL (39.0-259.0)
== END | disposition home or self-care (01) ==
LOC: LABWHC1 15:53
PROVIDERS: ATTEND Internal Medicine
DX: N25.81 Secondary hyperparathyroidism of renal origin (principal); N18.32 Chronic kidney disease, stage 3b; D64.9 Anemia, unspecified; N39.0 Urinary tract infection, site not specified; E55.9 Vitamin D deficiency, unspecified; M10.9 Gout, unspecified
CPT/HCPCS: 36415; 80053; 81001; 82043; 82306; 82570; 82728; 83540; 83550; 83735; 83970; 84100; 84550; 85027

== ENCOUNTER → 2021-08-19 | Outpatient (CLI) | payer BC ==
[2021-08-19 23:10] LABS: HCT 34.2 % (39.6-50.0); HGB 10.3 g/dL (13.0-17.0); MCH 25.9 pg (27.0-32.0); MCHC 30.1 g/dL (32.0-37.0); MCV 85.9 fL (80.0-97.0); Mean Platelet Volume 10.8 fL (9.5-12.2); NRBC Per 100 WBC 0 /100 WBCS (0.0-0.0); Platelet Count 194 X 10*3/uL (140-440); RBC 3.98 X 10*6/uL (4.40-5.60); RDW 13.8 % (11.5-14.5); WBC 6.14 X 10*3/uL (4.50-10.00)
[2021-08-19 23:36] LABS: % Iron Saturation 10.04 (15.00-50.00); Albumin/Globulin Ratio 1.24 (1.60-3.17); Anion Gap 11.1 mmol/L (10.00-18.00); BUN/Creat Ratio 22.78 Ratio (12.00-20.00); Calcium 9.1 mg/dL (8.7-10.3); Carbon Dioxide 22.3 mmol/L (20.0-27.5); Globulin 3.3 g/dL (1.6-3.3); Magnesium 2.2 mg/dL (1.5-2.4); Non-African American GFR(CKD) 28.5 (60.0-200.0); Phosphorus 3.9 mg/dL (2.4-5.1); Potassium 4.8 mmol/L (3.5-5.5); Total Bilirubin 1.2 mg/dL (0.30-1.20); Total Protein 7.3 g/dL (6.2-8.2); Uric Acid 6.5 mg/dL (3.7-8.7)
[2021-08-20 02:26] LABS: Appearance,Urine Clear (Clear); Bacteria,Urine None Seen /HPF (None Seen); Bilirubin,Urine Negative (Negative); Blood,Urine Negative (Negative); Color,Urine Yellow (Yellow); Ketones,Urine Negative (Negative); Mucus,Urine Present /LPF (None Seen); Nitrite,Urine Negative (Negative); Specific Gravity,Urine 1.013 (1.001-1.030); Urobilinogen,Urine 0.2 (0.2,1.0)
[2021-08-20 02:28] LABS: Urine Creatinine 79.5 mg/dL (39.0-259.0)
== END | disposition home or self-care (01) ==
LOC: LABWHC1 15:57
PROVIDERS: ATTEND Nurse Practitioner Family
DX: N18.32 Chronic kidney disease, stage 3b (principal); D63.1 Anemia in chronic kidney disease; N39.0 Urinary tract infection, site not specified; R80.9 Proteinuria, unspecified; E55.9 Vitamin D deficiency, unspecified; E21.3 Hyperparathyroidism, unspecified; M10.9 Gout, unspecified
CPT/HCPCS: 36415; 80053; 81001; 82043; 82306; 82570; 82728; 83540; 83550; 83735; 83970; 84100; 84550; 85027

== ENCOUNTER → 2022-05-23 | Outpatient (CLI) | payer BC ==
[2022-05-23 22:26] LABS: Basophils # (A) 0.05 X 10*3/uL (0.00-0.10); Basophils % (A) 0.8 %; Eosinophils % (A) 3.1 %; HCT 35.4 % (39.6-50.0); HGB 10.5 g/dL (13.0-17.0); Immature Grans, Automated 0.3 %; Lymphocytes # (A) 0.85 X 10*3/uL (0.90-5.00); Lymphocytes % (A) 13.3 %; MCH 25.5 pg (27.0-32.0); MCHC 29.7 g/dL (32.0-37.0); MCV 85.9 fL (80.0-97.0); Mean Platelet Volume 10.9 fL (9.5-12.2); Monocytes # (A) 0.43 X 10*3/uL (0.20-1.00); Monocytes % (A) 6.7 %; NRBC Per 100 WBC 0 /100 WBCS (0.0-0.0); Neutrophils # (A) 4.86 X 10*3/uL (1.80-7.70); Neutrophils % (A) 75.8 %; Platelet Count 174 X 10*3/uL (140-440); RBC 4.12 X 10*6/uL (4.40-5.60); RDW 16.3 % (11.5-14.5); WBC 6.41 X 10*3/uL (4.50-10.00)
[2022-05-23 23:29] LABS: % Iron Saturation 17.14 (15.00-50.00); African American GFR (CKD) 23.8 (60.0-200.0); Albumin 3.4 g/dL (3.8-4.9); Albumin/Globulin Ratio 1.09 (1.60-3.17); Anion Gap 10.6 mmol/L (10.00-18.00); BUN/Creat Ratio 13.82 Ratio (12.00-20.00); Blood Urea Nitrogen 42.7 mg/dL (9.0-27.0); Calcium 8.6 mg/dL (8.7-10.3); Carbon Dioxide 24.3 mmol/L (20.0-27.5); Globulin 3.2 g/dL (1.6-3.3); Non-African American GFR(CKD) 20.5 (60.0-200.0); Phosphorus 4.6 mg/dL (2.4-5.1); Potassium 4.6 mmol/L (3.5-5.5); Total Bilirubin 0.6 mg/dL (0.30-1.20); Total Protein 6.6 g/dL (6.2-8.2); Uric Acid 6.1 mg/dL (3.7-8.7)
[2022-05-24 01:08] LABS: Appearance,Urine Clear (Clear); Bilirubin,Urine Negative (Negative); Blood,Urine Trace (Negative); Color,Urine Yellow (Yellow); Ketones,Urine Negative (Negative); Nitrite,Urine Negative (Negative); PH, Urine 6.5 (5.0-8.0); Specific Gravity,Urine 1.012 (1.001-1.030); Urobilinogen,Urine 0.2 (0.2,1.0)
[2022-05-24 01:14] LABS: Bacteria,Urine None Seen /HPF (None Seen)
[2022-05-24 01:31] LABS: Urine Creatinine 53.3 mg/dL (39.0-259.0)
== END | disposition home or self-care (01) ==
LOC: LABWHC1 15:40
PROVIDERS: ATTEND Nurse Practitioner Family
DX: E55.9 Vitamin D deficiency, unspecified (principal); D63.1 Anemia in chronic kidney disease; N18.32 Chronic kidney disease, stage 3b; N39.0 Urinary tract infection, site not specified; N25.81 Secondary hyperparathyroidism of renal origin; M10.9 Gout, unspecified; R80.9 Proteinuria, unspecified
CPT/HCPCS: 36415; 80053; 81001; 82043; 82306; 82570; 82728; 83540; 83550; 83735; 83970; 84100; 84550; 85025

== ENCOUNTER → 2022-08-01 | Outpatient (CLI) | payer BC ==
[2022-08-01 15:46] LABS: HCT 35.8 % (39.6-50.0); HGB 11.1 g/dL (13.0-17.0); MCH 26.1 pg (27.0-32.0); MCV 84.2 fL (80.0-97.0); Mean Platelet Volume 11.2 fL (9.5-12.2); NRBC Per 100 WBC 0 /100 WBCS (0.0-0.0); Platelet Count 177 X 10*3/uL (140-440); RBC 4.25 X 10*6/uL (4.40-5.60); RDW 16.5 % (11.5-14.5); WBC 5.94 X 10*3/uL (4.50-10.00)
[2022-08-01 15:47] LABS: Appearance,Urine Clear (Clear); Bilirubin,Urine Negative (Negative); Blood,Urine Trace (Negative); Color,Urine Yellow (Yellow); Ketones,Urine Negative (Negative); Nitrite,Urine Negative (Negative); PH, Urine 5.5 (5.0-8.0); Specific Gravity,Urine 1.016 (1.001-1.030); Urobilinogen,Urine 0.2 (0.2,1.0)
[2022-08-01 15:50] LABS: Bacteria,Urine None Seen /HPF (None Seen)
[2022-08-01 16:25] LABS: % Iron Saturation 11.94 (15.00-50.00); African American GFR (CKD) 21.3 (60.0-200.0); Albumin 3.5 g/dL (3.8-4.9); Albumin/Globulin Ratio 1.06 (1.60-3.17); Anion Gap 12.9 mmol/L (10.00-18.00); BUN/Creat Ratio 17.58 Ratio (12.00-20.00); Blood Urea Nitrogen 59.6 mg/dL (9.0-27.0); Carbon Dioxide 24.2 mmol/L (20.0-27.5); Globulin 3.3 g/dL (1.6-3.3); Magnesium 2.3 mg/dL (1.5-2.4); Non-African American GFR(CKD) 18.4 (60.0-200.0); Phosphorus 4.9 mg/dL (2.4-5.1); Potassium 3.7 mmol/L (3.5-5.5); Total Bilirubin 0.7 mg/dL (0.30-1.20); Total Protein 6.7 g/dL (6.2-8.2); Uric Acid 8.5 mg/dL (3.7-8.7)
[2022-08-01 19:09] LABS: Urine Creatinine 65.2 mg/dL (39.0-259.0)
== END | disposition home or self-care (01) ==
LOC: LABWHC1 11:09
PROVIDERS: ATTEND Internal Medicine
DX: N18.32 Chronic kidney disease, stage 3b (principal); D63.1 Anemia in chronic kidney disease; N39.0 Urinary tract infection, site not specified; R80.9 Proteinuria, unspecified; N25.81 Secondary hyperparathyroidism of renal origin; E55.9 Vitamin D deficiency, unspecified; M10.9 Gout, unspecified
CPT/HCPCS: 36415; 80053; 81001; 82043; 82306; 82570; 82728; 83540; 83550; 83735; 83970; 84100; 84550; 85027

== ENCOUNTER 2023-02-28 11:10 | Inpatient (IN) | payer BC ==
[2023-02-28 11:38] LABS: Glucose,Whole Blood 321 mg/dL (70-110)
--- NOTE | 2023-02-28 11:44 | ED ---
General Adult HPI - General Source: patient, EMS, RN notes reviewed Mode of arrival: EMS Limitations: no limitations <Sultana Muhammad - Last Filed: 02/28/23 16:02> <Hannah Wall - Last Filed: 03/05/23 23:59> - General Chief complaint: Weakness Stated complaint: high sugar level Time Seen by Provider: 02/28/23 11:43 - History of Present Illness Initial comments: 62-year-old male presents to the emergency department with a chief complaint of blood sugar problem. Patient reports he fell earlier today due to being weak. Blood sugar is high. He denies hitting his head or loss consciousness. (Sultana Muhammad) 62-year-old male who presents emergency department after he was found on the floor this morning by his father. He reports that he was feeling weak yesterday. His father bought him some DayQuil and NyQuil for his cough. He took one dose and went to bed. States that he awoke this morning and was so weak that he ended up falling to the ground. Denies hitting his head or losing consciousness. Denies any neck or back pain. He has been having a cough which is nonproductive. Also feels chills. No nausea or vomiting. No diarrhea. Denies any black or bloody stools. He has had a poor appetite. Sr. at bedside states that the patient only drinks Vernors as his source of hydration. He does have history of chronic kidney disease. Was told that if he did not have improvement in his kidney functions that he would end up on dialysis shortly. Patient checked his glucose last night and was found to be high. No history of DKA. No other alleviating, precipitating or modifying factors (Hannah Wall) - Related Data Home Medications Medication Instructions Recorded Confirmed Insulin Aspart [NovoLOG Flexpen] 7 units SQ AC-BID 03/08/18 02/28/23 allopurinoL [Zyloprim] 100 mg PO DAILY 03/08/18 02/28/23 calcitrioL [Calcitriol] 0.25 mcg PO MOTUWETHFR 03/08/18 02/28/23 Ergocalciferol (Vitamin D2) 1,250 mcg PO Q14D 02/28/23 02/28/23 [Drisdol (50,000 Iu)] Sildenafil Citrate 50 mg PO DAILY PRN 02/28/23 02/28/23 Simvastatin 10 mg PO DAILY 02/28/23 02/28/23 carvediloL [Coreg] 6.25 mg PO BID 02/28/23 02/28/23 Allergies Allergy/AdvReac Type Severity Reaction Status Date / Time No Known Allergies Allergy Verified 02/28/23 16:15 Review of Systems ROS Other: All systems not noted in ROS Statement are negative. <Sultana Muhammad - Last Filed: 02/28/23 16:02> ROS Other: All systems not noted in ROS Statement are negative. <Hannah Wall - Last Filed: 03/05/23 23:59> ROS Statement: Those systems with pertinent positive or pertinent negative responses have been documented in the HPI. Past Medical History Past Medical History: Blood Disorder, Diabetes Mellitus, Hypertension, Skin Disorder Additional Past Medical History / Comment(s): diabetic ulcers jose feet, iron infusion 3 weeks ago. IRON DEFICIENCY ANEMIA. History of Any Multi-Drug Resistant Organisms: None Reported Past Surgical History: Tonsillectomy Additional Past Surgical History / Comment(s): kidney biopsy Past Anesthesia/Blood Transfusion Reactions: No Reported Reaction Past Psychological History: No Psychological Hx Reported Smoking Status: Never smoker Past Alcohol Use History: Occasional Past Drug Use History: None Reported - Past Family History Mother Family Medical History: No Reported History <Sultana Muhammad - Last Filed: 02/28/23 16:02> - Past Family History Father Family Medical History: Cancer, Diabetes Mellitus <Hannah Wall - Last Filed: 03/05/23 23:59> General Exam Limitations: no limitations <Sultana Muhammad - Last Filed: 02/28/23 16:02> Limitations: physical limitation (Patient is sleepy. He is able to answer questions however family does answer most questions for him) General appearance: alert, in no apparent distress Head exam: Present: atraumatic, normocephalic, normal inspection Eye exam: Present: normal appearance, PERRL, EOMI. Absent: scleral icterus, conjunctival injection, periorbital swelling ENT exam: Present: normal exam, mucous membranes dry Neck exam: Present: normal inspection. Absent: tenderness, meningismus, lymphadenopathy Respiratory exam: Present: rales. Absent: respiratory distress, wheezes, rhonchi, stridor, accessory muscle use Cardiovascular Exam: Present: regular rate, normal rhythm, normal heart sounds. Absent: systolic murmur, diastolic murmur, rubs, gallop, clicks GI/Abdominal exam: Present: soft, normal bowel sounds. Absent: distended, tenderness, guarding, rebound, rigid Extremities exam: Present: normal inspection, full ROM, normal capillary refill. Absent: tenderness, pedal edema, joint swelling, calf tenderness Back exam: Present: normal inspection Neurological exam: Present: alert, oriented X3, CN II-XII intact Psychiatric exam: Present: normal affect, normal mood Skin exam: Present: warm, dry, intact, normal color. Absent: rash <Hannah Wall - Last Filed: 03/05/23 23:59> - General Exam Comments Initial Comments: Visual Physical Exam Vital signs reviewed General: Well-appearing, nontoxic, no acute distress. Head: Normocephalic, atraumatic Eyes: PERRLA, EOMI ENT: Airway patent Chest: Nonlabored breathing Skin: No visual rash, normal skin tone Neuro: Alert and oriented 3 Musculoskeletal: No gross abnormalities I performed the quick note portion of this exam, verbal signature Sultana Muhammad PA-C (Sultana Muhammad) Course Vital Signs 02/28/23 02/28/23 02/28/23 11:37 13:20 15:28 Temperature 99.2 F 100.7 F H 99.1 F Pulse Rate 95 97 Pulse Rate [ Pulse Oximetery ] Respiratory 18 20 Rate Blood Pressure 112/75 92/47 Blood Pressure [Left Arm] O2 Sat by Pulse 92 L 93 L Oximetry Fraction of Inspired Oxygen (FIO2) 02/28/23 02/28/23 02/28/23 16:30 16:51 17:42 Temperature 98.1 F Pulse Rate 90 78 Pulse Rate [ 89 Pulse Oximetery ] Respiratory 18 16 16 Rate Blood Pressure 98/61 69/33 Blood Pressure 97/61 [Left Arm] O2 Sat by Pulse 97 97 Oximetry Fraction of Inspired Oxygen (FIO2) 02/28/23 02/28/23 18:18 18:30 Temperature Pulse Rate 98 Pulse Rate [ Pulse Oximetery ] Respiratory 22 Rate Blood Pressure 100/64 Blood Pressure [Left Arm] O2 Sat by Pulse 100 Oximetry Fraction of 100 Inspired Oxygen (FIO2) Medical Decision Making - Lab Data Result diagrams: 02/28/23 13:13 02/28/23 13:13 <Sultana Muhammad - Last Filed: 02/28/23 16:02> - Lab Data Result diagrams: 03/05/23 03:45 03/05/23 03:45 <Hannah Wall - Last Filed: 03/05/23 23:59> - Medical Decision Making Was pt. sent in by a medical professional or institution (, PA, PLASTIC BLOCK BOILER RELINER, urgent care, hospital, or snf...) When possible be specific @ -No Did you speak to anyone other than the patient for history (EMS, parent, family, police, friend...)? What history was obtained from this source @ -I spoke with the patient's sister and father Did you review nursing and triage notes (agree or disagree)? Why? @ -I reviewed and agree with nursing and triage notes Were old charts reviewed (outside hosp., previous admission, EMS record, old EKG, old radiological studies, urgent care reports/EKG's, snf records)? Report findings @ -No old charts were reviewed Differential Diagnosis (chest pain, altered mental status, abdominal pain women, abdominal pain men, vaginal bleeding, weakness, fever, dyspnea, syncope, headache, dizziness, GI bleed, back pain, seizure, CVA, palpatations, mental health, musculoskeletal)? @ -Differential Fever: Pneumonia, viral URI, endocarditis, myocarditis, pericarditis, otitis, sinusitis, peritonsillar Abscess, retropharyngeal Abscess, epiglottitis, peritonitis, appendicitis, Birdie cystitis, diverticulitis, hepatitis, colitis, UTI, PID, TOA, pyelonephritis, prostatitis, epididymitis, meningitis, encephalitis, pulmonary embolism, CVA, thyroid storm, pancreatitis, adrenal crisis, cavernous sinus thrombosis, this is not meant to be an all-inclusive list. EKG interpreted by me (3pts min.). @ -Yes and demonstrates sinus rhythm rate 96. SC interval 163. QRS 114. QTC of 400. Q waves in the inferior leads. No acute ST segment elevations X-rays interpreted by me (1pt min.). @ -Yes and demonstrates lobar pneumonia CT interpreted by me (1pt min.). @ -None done U/S interpreted by me (1pt. min.). @ -None done What testing was considered but not performed or refused? (CT, X-rays, U/S, labs)? Why? @ -None What meds were considered but not given or refused? Why? @ -None Did you discuss the management of the patient with other professionals (professionals i.e. , PA, PLASTIC BLOCK BOILER RELINER, lab, RT, psych nurse, oncology social worker, cell support operator, teacher, earth science technical officer, complex case manager)? Give summary @ -Spoke with Dr. Harper for admission Was smoking cessation discussed for >3mins.? @ -No Was critical care preformed (if so, how long)? @ -No Were there social determinants of health that impacted care today? How? (Homelessness, low income, unemployed, alcoholism, drug addiction, transportation, low edu. Level, literacy, decrease access to med. care, residential, rehab)? @ -No Was there de-escalation of care discussed even if they declined (Discuss DNR or withdrawal of care, Hospice)? DNR status @ -No What co-morbidities impacted this encounter? (DM, HTN, Smoking, COPD, CAD, Cancer, CVA, ARF, Chemo, Hep., AIDS, mental health diagnosis, sleep apnea, morbid obesity)? @ -Chronic kidney disease Was patient admitted / discharged? Hospital course, mention meds given and route, prescriptions, significant lab abnormalities, going to OR and other pertinent info. @ -Upon arrival patient was placed into room 155. Thorough history and physical exam was performed. Patient was given a 1500 mL fluid bolus followed by 130 an hour. IV is established laboratory studies are conducted. Chest x- ray was performed which demonstrates a left-sided pneumonia. Cultures obtained. Antibiotics are ordered. Viral swab is negative. Laboratory studies demonstrate markedly elevated creatinine. Patient will be admitted for fluid hydration and nephrology consultation. Spoke with Dr. Harper who agreed to admit the patient Undiagnosed new problem with uncertain prognosis? @ -Yes Drug Therapy requiring intensive monitoring for toxicity (Heparin, Nitro, Insulin, Cardizem)? @ -No Were any procedures done? @ -No Diagnosis/symptom? @ -Acute fall, prolonged down time, acute pyrexia, acute pneumonia, ROSANGELA/CKD Acute, or Chronic, or Acute on Chronic? @ -Acute Uncomplicated (without systemic symptoms) or Complicated (systemic symptoms)? @ -Complicated Side effects of treatment? @ -No Exacerbation, Progression, or Severe Exacerbation? @ -No Poses a threat to life or bodily function? How? (Chest pain, USA, NM, pneumonia, PE, COPD, DKA, ARF, appy, cholecystitis, CVA, Diverticulitis, Homicidal, Suicidal, threat to staff... and all critical care pts) @ -Yes patient does have significant elevation in his kidney function (Hannah Wall) - Lab Data Lab Results 02/28/23 02/28/23 02/28/23 Range/Units 11:37 13:13 13:13 WBC 11.1 H (3.8-10.6) k/uL RBC 2.89 L (4.30-5.90) m/uL Hgb 8.3 L (13.0-17.5) gm/dL Hct 26.3 L (39.0-53.0) % MCV 90.9 (80.0-100.0) fL MCH 28.7 (25.0-35.0) pg MCHC 31.6 (31.0-37.0) g/dL RDW 14.6 (11.5-15.5) % Plt Count 142 L (150-450) k/uL MPV 9.3 Neutrophils % 96 % Lymphocytes % 2 % Monocytes % 1 % Eosinophils % 0 % Basophils % 0 % Neutrophils # 10.7 H (1.3-7.7) k/uL Lymphocytes # 0.2 L (1.0-4.8) k/uL Monocytes # 0.1 (0-1.0) k/uL Eosinophils # 0.0 (0-0.7) k/uL Basophils # 0.0 (0-0.2) k/uL Manual Slide Review Performed Hypochromasia Slight PT 12.8 H (10.0-12.5) sec INR 1.2 H (<1.2) APTT 28.1 (22.0-30.0) sec Sodium (137-145) mmol/L Potassium (3.5-5.1) mmol/L Chloride (98-107) mmol/L Carbon Dioxide (22-30) mmol/L Anion Gap mmol/L BUN (9-20) mg/dL Creatinine (0.66-1.25) mg/dL Est GFR (CKD-EPI)AfAm (>60 ml/min/1.73 sqM) Est GFR (CKD-EPI)NonAf (>60 ml/min/1.73 sqM) Glucose (74-99) mg/dL POC Glucose (mg/dL) 321 H (70-110) mg/dL POC Glu [employer] Reservoir Engineer ID Claudia Laguerre Lactic Ac Sepsis Rflx Plasma Lactic Acid Yonathan (0.7-2.0) mmol/L Calcium (8.4-10.2) mg/dL Magnesium (1.6-2.3) mg/dL Total Bilirubin (0.2-1.3) mg/dL AST (17-59) U/L ALT (4-49) U/L Alkaline Phosphatase (38-126) U/L Creatine Kinase (55-170) U/L Troponin I (0.000-0.034) ng/mL Total Protein (6.3-8.2) g/dL Albumin (3.5-5.0) g/dL Urine Color Urine Appearance (Clear) Urine pH (5.0-8.0) Ur Specific [place] (1.001-1.035) Urine Protein (Negative) Urine Glucose (UA) (Negative) Urine Ketones (Negative) Urine Blood (Negative) Urine Nitrite (Negative) Urine Bilirubin (Negative) Urine Urobilinogen (<2.0) mg/dL Ur Leukocyte Esterase (Negative) Urine RBC (0-5) /hpf Urine Bacteria (None) /hpf Acetone, Qual (Negative) Influenza Type A (PCR) (Not Detectd) Influenza Type B (PCR) (Not Detectd) RSV (PCR) (Not Detectd) SARS-CoV-2 (PCR) (Not Detectd) 02/28/23 02/28/23 02/28/23 Range/Units 13:13 13:13 13:13 WBC (3.8-10.6) k/uL RBC (4.30-5.90) m/uL Hgb (13.0-17.5) gm/dL Hct (39.0-53.0) % MCV (80.0-100.0) fL MCH (25.0-35.0) pg MCHC (31.0-37.0) g/dL RDW (11.5-15.5) % Plt Count (150-450) k/uL MPV Neutrophils % % Lymphocytes % % Monocytes % % Eosinophils % % Basophils % % Neutrophils # (1.3-7.7) k/uL Lymphocytes # (1.0-4.8) k/uL Monocytes # (0-1.0) k/uL Eosinophils # (0-0.7) k/uL Basophils # (0-0.2) k/uL Manual Slide Review Hypochromasia PT (10.0-12.5) sec INR (<1.2) APTT (22.0-30.0) sec Sodium 138 (137-145) mmol/L Potassium 5.4 H (3.5-5.1) mmol/L Chloride 105 (98-107) mmol/L Carbon Dioxide 10 L (22-30) mmol/L Anion Gap 23 mmol/L BUN 113 H* (9-20) mg/dL Creatinine 8.47 H* (0.66-1.25) mg/dL Est GFR (CKD-EPI)AfAm 7 (>60 ml/min/1.73 sqM) Est GFR (CKD-EPI)NonAf 6 (>60 ml/min/1.73 sqM) Glucose 324 H (74-99) mg/dL POC Glucose (mg/dL) (70-110) mg/dL POC Glu Project Reservoir Engineer ID Lactic Ac Sepsis Rflx Plasma Lactic Acid Yonathan 2.1 H* (0.7-2.0) mmol/L Calcium 8.7 (8.4-10.2) mg/dL Magnesium 2.2 (1.6-2.3) mg/dL Total Bilirubin 2.0 H (0.2-1.3) mg/dL AST 50 (17-59) U/L ALT 26 (4-49) U/L Alkaline Phosphatase 80 (38-126) U/L Creatine Kinase 1240 H* (55-170) U/L Troponin I (0.000-0.034) ng/mL Total Protein 6.7 (6.3-8.2) g/dL Albumin 3.2 L (3.5-5.0) g/dL Urine Color Yellow Urine Appearance Cloudy (Clear) Urine pH 5.5 (5.0-8.0) Ur Specific [place] 1.016 (1.001-1.035) Urine Protein 2+ H (Negative) Urine Glucose (UA) 1+ H (Negative) Urine Ketones Negative (Negative) Urine Blood Small H (Negative) Urine Nitrite Negative (Negative) Urine Bilirubin Negative (Negative) Urine Urobilinogen <2.0 (<2.0) mg/dL Ur Leukocyte Esterase Negative (Negative) Urine RBC 3 (0-5) /hpf Urine Bacteria Rare H (None) /hpf Acetone, Qual Negative (Negative) Influenza Type A (PCR) (Not Detectd) Influenza Type B (PCR) (Not Detectd) RSV (PCR) (Not Detectd) SARS-CoV-2 (PCR) (Not Detectd) 02/28/23 02/28/23 02/28/23 Range/Units 13:13 13:13 13:51 WBC (3.8-10.6) k/uL RBC (4.30-5.90) m/uL Hgb (13.0-17.5) gm/dL Hct (39.0-53.0) % MCV (80.0-100.0) fL MCH (25.0-35.0) pg MCHC (31.0-37.0) g/dL RDW (11.5-15.5) % Plt Count (150-450) k/uL MPV Neutrophils % % Lymphocytes % % Monocytes % % Eosinophils % % Basophils % % Neutrophils # (1.3-7.7) k/uL Lymphocytes # (1.0-4.8) k/uL Monocytes # (0-1.0) k/uL Eosinophils # (0-0.7) k/uL Basophils # (0-0.2) k/uL Manual Slide Review Hypochromasia PT (10.0-12.5) sec INR (<1.2) APTT (22.0-30.0) sec Sodium (137-145) mmol/L Potassium (3.5-5.1) mmol/L Chloride (98-107) mmol/L Carbon Dioxide (22-30) mmol/L Anion Gap mmol/L BUN (9-20) mg/dL Creatinine (0.66-1.25) mg/dL Est GFR (CKD-EPI)AfAm (>60 ml/min/1.73 sqM) Est GFR (CKD-EPI)NonAf (>60 ml/min/1.73 sqM) Glucose (74-99) mg/dL POC Glucose (mg/dL) (70-110) mg/dL POC Glu Project Reservoir Engineer ID Lactic Ac Sepsis Rflx Y Plasma Lactic Acid Yonathan (0.7-2.0) mmol/L Calcium (8.4-10.2) mg/dL Magnesium (1.6-2.3) mg/dL Total Bilirubin (0.2-1.3) mg/dL AST (17-59) U/L ALT (4-49) U/L Alkaline Phosphatase (38-126) U/L Creatine Kinase (55-170) U/L Troponin I 0.457 H* (0.000-0.034) ng/mL Total Protein (6.3-8.2) g/dL Albumin (3.5-5.0) g/dL Urine Color Urine Appearance (Clear) Urine pH (5.0-8.0) Ur Specific [place] (1.001-1.035) Urine Protein (Negative) Urine Glucose (UA) (Negative) Urine Ketones (Negative) Urine Blood (Negative) Urine Nitrite (Negative) Urine Bilirubin (Negative) Urine Urobilinogen (<2.0) mg/dL Ur Leukocyte Esterase (Negative) Urine RBC (0-5) /hpf Urine Bacteria (None) /hpf Acetone, Qual (Negative) Influenza Type A (PCR) Not Detected (Not Detectd) Influenza Type B (PCR) Not Detected (Not Detectd) RSV (PCR) Not Detected (Not Detectd) SARS-CoV-2 (PCR) Not Detected (Not Detectd) Disposition <Sultana Muhammad - Last Filed: 02/28/23 16:02> Is patient prescribed a controlled substance at d/c from ED?: No Time of Disposition: 14:40 Decision to Admit Reason: Admit from EC Decision Date: 02/28/23 Decision Time: 14:40 <Hannah Wall - Last Filed: 03/05/23 23:59> Clinical Impression: Fever, CAP (community acquired pneumonia), Fall, Elevated creatine kinase Disposition: ADMITTED IP TO THIS [facility] Condition: Serious
--- NOTE | 2023-02-28 13:09 | XR ---
EXAMINATION TYPE: XR chest 2V DATE OF EXAM: 02/28/2023 1:05 PM COMPARISON: None TECHNIQUE: XR chest 2V Frontal and lateral views of the chest. CLINICAL INDICATION:Male, 62 years old with history of weakness; FINDINGS: Lungs/Pleura: No pleural effusion or pneumothorax. Patchy left lower lobe consolidation. Pulmonary vascularity: Unremarkable. Heart/mediastinum: Cardiomediastinal silhouette is enlarged. Musculoskeletal: No acute osseous pathology. IMPRESSION: 1. Patchy left lower lobe consolidation concerning for pneumonia. 2. Cardiomegaly.
[2023-02-28] MEDS ORDERED: SODIUM CHLORIDE 0.9% 1,000 ML IV ONE (13:24)
[2023-02-28] MEDS ORDERED: ACETAMINOPHEN TAB 500 MG TAB PO STA (13:24)
[2023-02-28 13:42] LABS: Basophils % (A) 0 %; Eosinophils % (A) 0 %; HCT 26.3 % (39.0-53.0); HGB 8.3 gm/dL (13.0-17.5); Hypochromasia Slight; Lymphocytes # (A) 0.2 k/uL (1.0-4.8); Lymphocytes % (A) 2 %; MCH 28.7 pg (25.0-35.0); MCHC 31.6 g/dL (31.0-37.0); MCV 90.9 fL (80.0-100.0); Mean Platelet Volume 9.3; Monocytes # (A) 0.1 k/uL (0-1.0); Monocytes % (A) 1 %; Neutrophils # (A) 10.7 k/uL (1.3-7.7); Neutrophils % (A) 96 %; Platelet Count 142 k/uL (150-450); RBC 2.89 m/uL (4.30-5.90); RDW 14.6 % (11.5-15.5); WBC 11.1 k/uL (3.8-10.6)
[2023-02-28 13:54] LABS: INR 1.2 (<1.2)
[2023-02-28 13:55] LABS: Partial Thromboplastin Time 28.1 sec (22.0-30.0); Prothrombin Time 12.8 sec (10.0-12.5)
[2023-02-28 14:39] LABS: ALT 26 U/L (4-49); AST 50 U/L (17-59); African American GFR (CKD) 7 (>60 ml/min/1.73 sqM); Albumin 3.2 g/dL (3.5-5.0); Alkaline Phosphatase 80 U/L (38-126); Anion Gap 23 mmol/L; Calcium 8.7 mg/dL (8.4-10.2); Carbon Dioxide 10 mmol/L (22-30); Chloride 105 mmol/L (98-107); Glucose 324 mg/dL (74-99); Magnesium 2.2 mg/dL (1.6-2.3); Non-African American GFR(CKD) 6 (>60 ml/min/1.73 sqM); Potassium 5.4 mmol/L (3.5-5.1); Sodium 138 mmol/L (137-145); Total Protein 6.7 g/dL (6.3-8.2)
[2023-02-28] MEDS ORDERED: AZITHROMYCIN 500 MG in SODIUM CHLORIDE 0.9% 250 ML IVPB STA (14:39)
[2023-02-28] MEDS ORDERED: PNEUMONIA PROTOCOL UTILIZED 1 EACH MISC PO PRN (14:39)
[2023-02-28 14:55] LABS: Blood Urea Nitrogen 113 mg/dL (9-20); Creatine Kinase 1240 U/L (55-170)
[2023-02-28] MEDS ORDERED: SODIUM CHLORIDE 0.9% 500 ML 500 ML IV ONE (15:00)
[2023-02-28] MEDS ORDERED: SODIUM BICARB 8.4% 50 ML SYR (1 MEQ/ML) IV STA (16:20)
--- NOTE | 2023-02-28 16:38 | P.HPIM ---
History of Present Illness H&P Date: 02/28/23 62 year old M with PMH of CKD, hypertension, gout, diabetes mellitus presents to the ED after being found down. Patient is lethargic and sleepy and majority of history is provided by his father. Patient is single, lives alone, takes care of his ADLs and IADL's and normally very active. Father states he has been dealing with a cold over the past week. Symptoms include cough, rhinorrhea, malaise, diarrhea, nausea and vomiting, poor appetite. Last time seen normal was yesterday at 6:30PM when he went to bed. Found down this morning by his father, apparently tried to use the washroom last night, unable to make it to bed, laid on the floor all night. EMS was subsequently called. In the ED, he underwent extensive workup. Tmax 100.7F. HR in the 90s. BP 92/47. 92% on RA. CBC showed leukocytosis of 11.1, hemoglobin of 8.3 and platelet count 142. INR 1.2 CMP showed potassium of 5.4, bicarb 10, BUN 113, creatinine 8.47, glucose 324, total bilirubin 2. Lactic acid 2.1. CPK 1240. Troponin 0.457. Acetone negative. Influenza, RSV, COVID-19 negative. Chest x-ray reviewed by me showed large left sided PNA. EKG showed sinus rhythm with no ST elevation. General: non toxic, no distress, appears at stated age Derm: warm, dry Head: atraumatic, normocephalic, symmetric Eyes: EOMI, no lid lag, anicteric sclera Mouth: no lip lesion, dry membranes moist Cardiovascular: S1S2 tachycardic, no murmur Lungs: Coarse BS bilateral, no rhonchi, no rales , no accessory muscle use Abdominal: soft, nontender to palpation, no guarding, no appreciable organomegaly Ext: no gross muscle atrophy, no edema, no contractures Neuro: Unable to perform Psych: Lethargic Sepsis related to community acquired pneumonia Acute kidney injury on chronic kidney disease Troponin elevation Acute metabolic encephalopathy Severe metabolic acidosis Hyperkalemia Rhabdomyolysis Chronic conditions: Hypertension, gout, diabetes mellitus Based on my assessment of this patient, this patient meets a high complexity level of care. Patient has an acute diagnosis of sepsis related to community acquired PNA that poses a threat to life or bodily function. Also has ROSANGELA on CKD with severe acidosis and hyperkalemia likely requiring dialysis. Complicated with troponin elevation and rhabomyolysis. Sepsis related to community acquired pneumonia: Status post 1.5L NS bolus. Hold Coreg. BCx. Sputum Cx. Legionella Ag. Rocephin 2g IV QD and Azithromycin 500 mg PO QD. NS at 130 cc/hr. Telemetry monitoring. Maintain MAP > 65. Vitals Q2H. Trend lactic acid until negative. Pulmonology and ID consult. Acute kidney injury on chronic kidney disease: Multifactorial. Sepsis. Dehydration due to N/V, poor appetite and diarrhea. Neprhology consulted for consideration of hemodialysis. Troponin elevation: Likely due to demand ischemia. Trend Trop. Echocardiogram. Acute metabolic encephalopathy: Likely related to above. Fall precautions. PT and OT consult. Severe metabolic acidosis: Sodium bicarbonate 50 meq IV ordered. Hyperkalemia: Due to severe ROSANGELA on CKD. Sodium bicarbonate as above. Monitor. Rhabdomyolysis: Hold simvastatin. IV hydration as above. Repeat levels tomorrow. Normocytic anemia: Likely AOCD due to CKD. Transfuse if Hg < 7. Father is the decision maker. FULL CODE. Heparin SQ for DVT prophylaxis. I have reviewed the following corporate learning consultant notes: I have reviewed the results of the following tests: As above. I have ordered the following tests: As above. I have discussed the care of this patient with the following independent historian: Discussed with father and RN. I have independently interpreted the following test below: CXR as above. I have discussed the management of this patient with the following physician: Past Medical History Past Medical History: Blood Disorder, Diabetes Mellitus, Hypertension, Skin Disorder Additional Past Medical History / Comment(s): diabetic ulcers jose feet, iron infusion 3 weeks ago. IRON DEFICIENCY ANEMIA. History of Any Multi-Drug Resistant Organisms: None Reported Past Surgical History: Tonsillectomy Additional Past Surgical History / Comment(s): kidney biopsy Past Anesthesia/Blood Transfusion Reactions: No Reported Reaction Past Psychological History: No Psychological Hx Reported Smoking Status: Never smoker Past Alcohol Use History: Occasional Past Drug Use History: None Reported - Past Family History Mother Family Medical History: No Reported History Medications and Allergies Home Medications Medication Instructions Recorded Confirmed Type Insulin Aspart [NovoLOG Flexpen] 7 units SQ AC-BID 03/08/18 02/28/23 History allopurinoL [Zyloprim] 100 mg PO DAILY 03/08/18 02/28/23 History calcitrioL [Calcitriol] 0.25 mcg PO MOTUWETHFR 03/08/18 02/28/23 History Ergocalciferol (Vitamin D2) 1,250 mcg PO Q14D 02/28/23 02/28/23 History [Drisdol (50,000 Iu)] Sildenafil Citrate 50 mg PO DAILY PRN 02/28/23 02/28/23 History Simvastatin 10 mg PO DAILY 02/28/23 02/28/23 History carvediloL [Coreg] 6.25 mg PO BID 02/28/23 02/28/23 History Allergies Allergy/AdvReac Type Severity Reaction Status Date / Time No Known Allergies Allergy Verified 02/28/23 16:15 Physical Exam Vitals: Vital Signs Temp Pulse Resp BP Pulse Ox 02/28/23 16:30 98.1 F 90 18 98/61 97 02/28/23 15:28 99.1 F 02/28/23 13:20 100.7 F H 97 20 92/47 93 L 02/28/23 11:37 99.2 F 95 18 112/75 92 L Intake and Output 02/28/23 02/28/23 02/28/23 06:59 14:59 22:59 Other: Weight 71.214 kg Results CBC & Chem 7: 02/28/23 13:13 02/28/23 13:13 Labs: Abnormal Lab Results - Last 24 Hours (Table) 02/28/23 02/28/23 02/28/23 Range/Units 11:37 13:13 13:13 WBC 11.1 H (3.8-10.6) k/uL RBC 2.89 L (4.30-5.90) m/uL Hgb 8.3 L (13.0-17.5) gm/dL Hct 26.3 L (39.0-53.0) % Plt Count 142 L (150-450) k/uL Neutrophils # 10.7 H (1.3-7.7) k/uL Lymphocytes # 0.2 L (1.0-4.8) k/uL PT 12.8 H (10.0-12.5) sec INR 1.2 H (<1.2) Potassium (3.5-5.1) mmol/L Carbon Dioxide (22-30) mmol/L BUN (9-20) mg/dL Creatinine (0.66-1.25) mg/dL Glucose (74-99) mg/dL POC Glucose (mg/dL) 321 H (70-110) mg/dL Plasma Lactic Acid Yonathan (0.7-2.0) mmol/L Total Bilirubin (0.2-1.3) mg/dL Creatine Kinase (55-170) U/L Troponin I (0.000-0.034) ng/mL Albumin (3.5-5.0) g/dL 02/28/23 02/28/23 02/28/23 Range/Units 13:13 13:13 13:13 WBC (3.8-10.6) k/uL RBC (4.30-5.90) m/uL Hgb (13.0-17.5) gm/dL Hct (39.0-53.0) % Plt Count (150-450) k/uL Neutrophils # (1.3-7.7) k/uL Lymphocytes # (1.0-4.8) k/uL PT (10.0-12.5) sec INR (<1.2) Potassium 5.4 H (3.5-5.1) mmol/L Carbon Dioxide 10 L (22-30) mmol/L BUN 113 H* (9-20) mg/dL Creatinine 8.47 H* (0.66-1.25) mg/dL Glucose 324 H (74-99) mg/dL POC Glucose (mg/dL) (70-110) mg/dL Plasma Lactic Acid Yonathan 2.1 H* (0.7-2.0) mmol/L Total Bilirubin 2.0 H (0.2-1.3) mg/dL Creatine Kinase 1240 H* (55-170) U/L Troponin I 0.457 H* (0.000-0.034) ng/mL Albumin 3.2 L (3.5-5.0) g/dL
[2023-02-28] MEDS: SODIUM CHLORIDE 0.9% 1,000 ML IV SCH ×2 (16:40→23:18)
[2023-02-28 17:38] LABS: Appearance,Urine Cloudy (Clear); Bacteria,Urine Rare /hpf; Bilirubin,Urine Negative (Negative); Blood,Urine Small (Negative); Color,Urine Yellow; Glucose,Urine (UA) 1+ (Negative); Ketones,Urine Negative (Negative); Leukocyte Esterase,Urine Negative (Negative); Nitrite,Urine Negative (Negative); PH, Urine 5.5 (5.0-8.0); Protein,Urine 2+ (Negative); RBC,Urine 3 /hpf (0-5); Specific Gravity,Urine 1.016 (1.001-1.035); Urobilinogen,Urine <2.0 mg/dL (<2.0)
[2023-02-28] MEDS ORDERED: CALCIUM CHLORIDE 100 MG/ML 10 ML SYRINGE ONE (17:52)
[2023-02-28] MEDS ORDERED: EPINEPHrine 10 ML SYRINGE (0.1 MG/ML) ONE (17:52)
[2023-02-28] MEDS ORDERED: SODIUM BICARB 8.4% 50 ML SYR (1 MEQ/ML) ONE (17:52)
[2023-02-28 18:02] LABS: Glucose,Whole Blood 300 mg/dL (70-110)
[2023-02-28] MEDS ORDERED: propofoL 100 ML IV ONE (18:12)
[2023-02-28 18:33] LABS: Hypochromasia Slight; MCH 28.8 pg (25.0-35.0); MCHC 31.8 g/dL (31.0-37.0); MCV 90.5 fL (80.0-100.0); Mean Platelet Volume 9.2; Platelet Count 139 k/uL (150-450); RBC 2.77 m/uL (4.30-5.90); RDW 14.6 % (11.5-15.5); WBC 9.8 k/uL (3.8-10.6)
[2023-02-28] MEDS ORDERED: LIDOCAINE 1% INJ 10MG/ML (20 ML MDV) SQ ONE ×2 (18:34)
[2023-02-28] MEDS ORDERED: CISATRACURIUM 2 MG/ML 5 ML VIAL IV ONE (18:40)
--- NOTE | 2023-02-28 18:41 | XR ---
EXAMINATION TYPE: XR chest 1V portable DATE OF EXAM: 02/28/2023 Comparison: Earlier today Clinical History: 62-year-old male ET tube placement Findings: Heart remains mildly enlarged. Underlying airspace opacity throughout the left mid and lower lung ET tube satisfactory at the level of the aortic knob. NG tube is short. The sidehole is just above the G E junction level. Recommend further advancement by 6 cm so that the sidehole in the stomach. Impression: 1. Advance the NG tube by 6 cm so that the sidehole enters the stomach. 2. Satisfactory ET tube. 3. Similar mild cardiomegaly. 4. Ongoing extensive airspace disease throughout the left mid and lower lung.
[2023-02-28 18:54] LABS: African American GFR (CKD) 8 (>60 ml/min/1.73 sqM); Anion Gap 18 mmol/L; Calcium 8.5 mg/dL (8.4-10.2); Carbon Dioxide 15 mmol/L (22-30); Chloride 107 mmol/L (98-107); Glucose 275 mg/dL (74-99); Non-African American GFR(CKD) 7 (>60 ml/min/1.73 sqM); Potassium 4.7 mmol/L (3.5-5.1); Sodium 140 mmol/L (137-145)
[2023-02-28] MEDS ORDERED: HEPARIN SODIUM 1,000 UN/ML (10ML VL) MISCELLANE ONE (19:02)
[2023-02-28 19:03] LABS: Blood Urea Nitrogen 105 mg/dL (9-20)
--- NOTE | 2023-02-28 19:06 | P.EN ---
CODE BLUE NOTE: I received a PerfectServe from the RN taking care of the patient in the ED at 5:42 regarding low blood pressure. Patient was evaluated shortly after at bedside. He was noted to hypotensive with BP 60/40s with agonal breathing. He was placed on a state comptroller. 1L NS bolus and 4 amps of sodium bicarb was ordered. Soon after he went into PEA arrest. CODE BLUE was activated. He received high quality chest compressions. He received multiple amps of sodium bicarb and epinephrine. Please check the CODE BLUE sheet for specific details. IO access was obtained in the left proximal tibia. DESIGN PAINTER was able to successfully intubate the patient. ROSC was achieved after multiple rounds of CPR. STAT CXR confirmed correct placement of the ET tube. EKG showed a wide complex rhythm thought to be related to electrolyte disturbance. Patient was transferred to the ICU. Dr. Lacy was contacted regarding this patient and was agreeable to come in for arterial and central line. Dr. Juarez was contacted regarding obtaining hemodialysis access for emergent hemodialysis. Dr. Simon was contacted regarding and recommended emergent hemodialysis. Dr. Ralph was present during the CODE BLUE. STAT CBC, BMP, Lactic acid, Coag panel, Trop was ordered. A total of 45 minutes of critical care time was provided for this patient during the CODE BLUE and calling the above consultants.
[2023-02-28] MEDS ORDERED: DEXTROSE 50% SYRINGE 50 ML IVP PRN (19:18)
[2023-02-28] MEDS: NOREPINEPHRINE 4 MG in SODIUM CHLORIDE 0.9% 250 ML IV SCH (19:30)
[2023-02-28 19:49] LABS: ABG HCO3 17 mmol/L (21-25); ABG PCO2 27 mmHg (35-45); ABG PH 7.43 (7.35-7.45); ABG PO2 >400 mmHg (83-108); ABG TCO2 18 mmol/L (19-24); Allen Test Performed? Yes
--- NOTE | 2023-02-28 19:49 | XR ---
EXAMINATION TYPE: XR chest 1V portable DATE OF EXAM: 02/28/2023 Comparison: 02/28/2023 Clinical History: 62-year-old male central line placement Findings: ET tube satisfactory, 4 cm from the anika. NG tube sidehole at the GE junction level. Recommend adva ncement by 6 cm. Left subclavian CVC tip at the cavoatrial junction. No appreciable pneumothorax. Heart borderline in size. Ongoing extensive, and worsening consolidation throughout the left mid and lower lung. Impression: 1. As before, recommend advancement of the NG tube by 6 cm. 2. New left subclavian CVC tip at the cavoatrial junction. 3. Persistent and worsening consolidation throughout the left mid and lower lung.
[2023-02-28] MEDS: DEXTROSE 5% IN WATER 1,000 ML with SODIUM BICARB (1 MEQ/ML) 150 ML IV SCH (20:01)
[2023-02-28 20:16] LABS: HCT 22.7 % (39.0-53.0); HGB 7.1 gm/dL (13.0-17.5); Hypochromasia Marked; MCH 28.8 pg (25.0-35.0); MCHC 31.4 g/dL (31.0-37.0); MCV 91.7 fL (80.0-100.0); Mean Platelet Volume 8.3; Platelet Count 120 k/uL (150-450); RBC 2.48 m/uL (4.30-5.90); RDW 14.5 % (11.5-15.5); WBC 7.8 k/uL (3.8-10.6)
[2023-02-28 20:21] LABS: African American GFR (CKD) 8 (>60 ml/min/1.73 sqM); Anion Gap 18 mmol/L; Calcium 8.5 mg/dL (8.4-10.2); Carbon Dioxide 15 mmol/L (22-30); Chloride 107 mmol/L (98-107); Glucose 282 mg/dL (74-99); Non-African American GFR(CKD) 7 (>60 ml/min/1.73 sqM); Potassium 4.6 mmol/L (3.5-5.1); Sodium 140 mmol/L (137-145)
[2023-02-28 20:26] LABS: Band Neutrophils % 7 %; Lymphocytes # (M) 1.27 k/uL (1.0-4.8); Neutrophils % (M) 79 %; Nucleated Red Blood Cells 0 /100 WBC (0-0); Total Cells Counted 100
[2023-02-28 20:36] LABS: Blood Urea Nitrogen 107 mg/dL (9-20)
[2023-02-28 20:58] LABS: Band Neutrophils % 11 %; Lymphocytes # (M) 0.23 k/uL (1.0-4.8); Monocytes # (M) 0.08 k/uL (0-1.0); Neutrophils % (M) 85 %; Nucleated Red Blood Cells 0 /100 WBC (0-0); Total Cells Counted 100
[2023-02-28] MEDS ORDERED: INSULIN ASPART (NovoLOG) 100 UNIT/ML VIAL SQ SCH (21:00)
[2023-02-28 21:03] LABS: Glucose,Whole Blood 336 mg/dL (70-110)
[2023-02-28] MEDS: CHLORHEXIDINE GLUCONATE 15 ML CUP MUCOUS MEM SCH (23:20)
[2023-02-28] MEDS: HEPARIN SODIUM,PORCINE 5,000 UNIT/ML 1 ML VIAL SQ SCH (23:21)
--- NOTE | 2023-02-28 23:36 | PCN ---
PROCEDURE NOTE PREOPERATIVE DIAGNOSIS: Acute chronic renal failure. POSTOPERATIVE DIAGNOSIS: Acute chronic renal failure. PROCEDURE PERFORMED: Ultrasound-guided 20 cm dialysis catheter placed via right femoral approach. DESCRIPTION OF PROCEDURE: The right groin was prepped and draped in applied sterile manner. 1% lidocaine was infiltrated. Ultrasound-guided micropuncture introduced to right femoral vein, micropuncture guidewire was passed and 4-Indonesian sheath on the top of the guidewire. After that, we placed a regular guidewire and then we placed the dilator and then placed a 20 cm dialysis catheter on top of the guidewire. The guidewire was removed, flushed with heparin saline and hep-locked, secured with 3-0 nylon. The patient tolerated the procedure well. MMODL / IJN: [id number] /
[2023-02-28 23:43] LABS: Glucose,Whole Blood 371 mg/dL (70-110)
--- NOTE | 2023-02-28 23:54 | PCN ---
PROCEDURE NOTE PROCEDURE PERFORMED: Left subclavian triple-lumen catheter. PREOPERATIVE DIAGNOSIS: Administration of fluids and pressors, hypotension, status post cardiac arrest. POSTOPERATIVE DIAGNOSIS: Administration of fluids and pressors, hypotension, status post cardiac arrest. CONSENT: There was informed consent and universal timeout. TRIPLE LUMEN CATHETER PLACEMENT: Indication: Hemodynamic monitoring/Intravenous access. A time-out was completed verifying correct patient, procedure, site, positioning, and implant(s) or special equipment if applicable. The patient was placed in a dependent position appropriate for triple lumen catheter placement based on the vein to be cannulated. The patient's left shoulder was prepped and draped in sterile fashion. 1% Lidocaine was used to anesthetize the surrounding skin area. A triple lumen 9F Cordis catheter was introduced into the left subclavian vein using Seldinger technique. The catheter was threaded smoothly over the guide wire and appropriate blood return was obtained. Each lumen of the catheter was evacuated of air and flushed with sterile saline. The catheter was then sutured in place to the skin and a sterile dressing applied. Perfusion to the extremity distal to the point of catheter insertion was checked and found to be adequate. There was good blood return from all 3 ports. The catheter was sutured in place. A sterile dressing was applied by the nurse. There was no immediate complication. A chest x-ray was ordered. The tip of the catheter was seen at the junction of superior vena cava and right atrium. PROCEDURE PERFORMED: Right radial art line. PREOPERATIVE DIAGNOSES: Hypotension, frequent blood draws, blood gas monitoring. POSTOPERATIVE DIAGNOSES: Hypotension, frequent blood draws, blood gas monitoring. There was informed consent, universal timeout. ARTERIAL LINE PLACEMENT: Indications: Hemodynamic monitoring. A time-out was completed verifying correct patient, procedure, site, positioning, and implant(s) or special equipment if applicable. Jeffrey's test was performed to ensure adequate perfusion. The patient's right wrist was prepped and draped in sterile fashion. 1% Lidocaine was used to anesthetize the area. An 18G Arrow arterial line was introduced into the radial artery. The catheter was threaded over the guide wire and the needle was removed with appropriate pulsatile blood return. Blood loss was minimal. The catheter was then sutured in place to the skin and a sterile dressing applied. Perfusion to the extremity distal to the point of catheter insertion was checked and found to be adequate. The patient tolerated the procedure well and there were no complications. There was good blood return and waveform. The catheter was sutured in place. There was no immediate complication. Sterile dressing was applied by the nurse. LUCINDA / SERVANDO: [id number] /
[2023-03-01] MEDS ORDERED: INSULIN ASPART (NovoLOG) 100 UNIT/ML VIAL SQ ONE (00:03)
[2023-03-01] MEDS ORDERED: INSULIN ASPART (NovoLOG) 100 UNIT/ML VIAL SQ SCH (02:15)
--- NOTE | 2023-03-01 03:21 | P.CNPUL ---
History of Present Illness Consult date: 03/01/23 Requesting physician: Joselo Roman Reason for consult: other (ICU management, pneumonia sepsis) Chief complaint: Status post cardiac arrest History of present illness: I am seeing this patient in new consultation today 03/01/2023 in the intensive care unit, after the patient had a witnessed PEA cardiac arrest while on the Observation unit. Patient is a 62-year-old white male with past medical history significant for diabetes mellitus, diabetic foot ulcers, hypertension, hyperlipidemia, iron deficiency anemia, chronic kidney disease. Patient is currently sedated and intubated on the mechanical ventilator. He was admitted yesterday morning, after being found on the floor by his father. Apparently, the patient denied hitting his head or losing consciousness. Patient does have diabetes mellitus, and his blood sugars had been running high at home. Chest x- ray on admission showed a left lower lobe infiltrate consistent with community acquired pneumonia. Patient did have a fever with a T-max of 100.7F. Apparently, after being admitted to the observation unt, the patient was noted to have low blood pressure. The patient was given 1 L normal saline bolus and 5 amps sodium bicarb. Soon after, the patient had a cardiac arrest. Presenting rhythm was PEA. Patient had a limited downtime of less than 5 minutes. He received 1 mg of epinephrine. Rapid sequence intubation was performed. The patient was then transferred to the intensive care unit. Dr. Lacy did come in and place a left subclavian central line catheter and a right wrist arterial line. Patient was also noted to be in acute renal failure. He did have a right femoral hemodialysis catheter placed earlier, and is currently undergoing emergent hemodialysis. Patient is currently in the intensive care unit, intubated to the mechanical ventilator. He is sedated on propofol which is currently infusing at 40 mcg/kg/m. He is synchronous with the mechanical ventilator. Postintubation ABG shows a pO2 greater than 400, pCO2 27, pH of 7.43, this was done on ventilator settings of assist control, respiratory rate 22, tidal volume 500, FiO2 100%, and PEEP of 5. Patient's FiO2 was dropped to 50%. Peak pressures 27. Post intubation chest x-ray shows the endotracheal tube 4 cm above the anika. Oral gastric tube could be advanced 5 cm. There is a persistent left lower lobe infiltrate. Most recent CBC from yesterday evening showed a WBC count of 7.8, hemoglobin 7.1, hematocrit 22.7, platelets 120. No obvious acute blood loss was noted. Most recent available BMP shows sodium 140, potassium 4.6, chloride 107, serum bicarb 15, BUN 107, creatinine 7.82, glucose 282. Acetone negative. LFTs not elevated. CPK 1240. Currently, 3 A sodium bicarb in D5W is infusing at 100 ML's per hour. There is also normal saline infusing at 130 ML's per hour. Patient is currently anuric. Troponins elevated at 0.457, 0.388, and 0.422 respectively. ECG shows normal sinus rhythm without any obvious acute ischemic changes. Urinalysis not concerning for UTI. Lactic acid level was elevated at 4 is down 1.6. Negative for influenza, RSV, COVID- 19. Patient was started on empiric antibiotics in the form of ceftriaxone and azithromycin. Currently afebrile. Patient's condition is currently critical, moderate in the intensive care unit. Review of Systems ROS unobtainable: due to endotracheal tube Past Medical History Past Medical History: Blood Disorder, Diabetes Mellitus, Hypertension, Renal Disease, Skin Disorder Additional Past Medical History / Comment(s): diabetic ulcers jose feet, iron infusion 3 weeks ago. IRON DEFICIENCY ANEMIA. History of Any Multi-Drug Resistant Organisms: None Reported Past Surgical History: Tonsillectomy Additional Past Surgical History / Comment(s): kidney biopsy Past Anesthesia/Blood Transfusion Reactions: No Reported Reaction Past Psychological History: No Psychological Hx Reported Smoking Status: Never smoker Past Alcohol Use History: Rare Past Drug Use History: None Reported - Past Family History Mother Family Medical History: Congestive Heart Failure (CHF), Coronary Artery Disease (CAD), Diabetes Mellitus Father Family Medical History: Cancer, Diabetes Mellitus Medications and Allergies Home Medications Medication Instructions Recorded Confirmed Type Insulin Aspart [NovoLOG Flexpen] 7 units SQ AC-BID 03/08/18 02/28/23 History allopurinoL [Zyloprim] 100 mg PO DAILY 03/08/18 02/28/23 History calcitrioL [Calcitriol] 0.25 mcg PO MOTUWETHFR 03/08/18 02/28/23 History Ergocalciferol (Vitamin D2) 1,250 mcg PO Q14D 02/28/23 02/28/23 History [Drisdol (50,000 Iu)] Sildenafil Citrate 50 mg PO DAILY PRN 02/28/23 02/28/23 History Simvastatin 10 mg PO DAILY 02/28/23 02/28/23 History carvediloL [Coreg] 6.25 mg PO BID 02/28/23 02/28/23 History Allergies Allergy/AdvReac Type Severity Reaction Status Date / Time No Known Allergies Allergy Verified 02/28/23 16:15 Physical Exam Vitals: Vital Signs Temp Pulse Pulse Resp BP BP Pulse Ox 03/01/23 00:01 03/01/23 00:00 98.2 F 77 22 98 02/28/23 23:45 78 22 98 02/28/23 23:30 77 22 98 02/28/23 23:15 76 22 98 02/28/23 23:00 80 20 98 02/28/23 22:45 75 22 98 02/28/23 22:30 78 22 98 02/28/23 22:15 79 22 99 02/28/23 22:00 77 22 98 02/28/23 21:45 75 22 98 02/28/23 21:30 74 22 98 02/28/23 21:15 76 22 98 02/28/23 21:00 85 22 99 02/28/23 20:45 102 H 22 98 02/28/23 20:30 84 22 111/68 99 02/28/23 20:15 80 111/68 98 02/28/23 20:13 02/28/23 20:00 98.3 F 84 22 103/65 99 02/28/23 19:50 02/28/23 19:45 81 22 103/65 100 02/28/23 19:30 81 89/59 100 02/28/23 19:15 80 89/59 100 02/28/23 19:00 89 93/59 100 02/28/23 18:45 101/68 100 02/28/23 18:30 98 22 100/64 100 02/28/23 18:18 02/28/23 18:15 02/28/23 17:42 78 16 69/33 02/28/23 16:51 89 16 97/61 97 02/28/23 16:30 98.1 F 90 18 98/61 97 02/28/23 15:28 99.1 F 02/28/23 13:20 100.7 F H 97 20 92/47 93 L 02/28/23 11:37 99.2 F 95 18 112/75 92 L FiO2 03/01/23 00:01 50 03/01/23 00:00 50 02/28/23 23:45 02/28/23 23:30 02/28/23 23:15 02/28/23 23:00 02/28/23 22:45 02/28/23 22:30 02/28/23 22:15 02/28/23 22:00 02/28/23 21:45 02/28/23 21:30 02/28/23 21:15 02/28/23 21:00 02/28/23 20:45 02/28/23 20:30 02/28/23 20:15 02/28/23 20:13 50 02/28/23 20:00 50 02/28/23 19:50 50 02/28/23 19:45 02/28/23 19:30 02/28/23 19:15 02/28/23 19:00 02/28/23 18:45 02/28/23 18:30 02/28/23 18:18 100 02/28/23 18:15 100 02/28/23 17:42 02/28/23 16:51 02/28/23 16:30 02/28/23 15:28 02/28/23 13:20 02/28/23 11:37 Intake and Output 02/28/23 02/28/23 03/01/23 14:59 22:59 06:59 Intake Total 764.475 460 Output Total 300 5 Balance 464.475 455 Intake: IV 690 460 Dextrose 5% in Water 1, 300 200 000 ml @ 100 mls/hr IV . [id number] [facility] with Sodium Bicarb (1 Meq/ml) 150 ml Rx#:[id number] Sodium Chloride 0.9% 1, 390 260 000 ml @ 130 mls/hr IV . [id number] [facility] Rx#:[id number] Intake, IV Titration 74.475 Amount Norepinephrine 4 mg In 11.983 Sodium Chloride 0.9% 250 ml @ 0.03 MCG/KG/MIN 8.14 mls/hr IV .Q24H [facility] Rx#: [id number] propofoL 1,000 mg In 62.492 Empty Bag 1 bag @ 15 MCG/ KG/MIN 6.409 mls/hr IV . [id number] [facility] Rx#:[id number] Output: Urine 300 5 Other: Weight 71.214 kg 71.214 kg ABP, PAP, CO, CI - Last 8 Hours Arterial Blood Pressure 111/51 Arterial Blood Pressure 109/51 Arterial Blood Pressure 108/51 Arterial Blood Pressure 107/52 Arterial Blood Pressure 114/54 Arterial Blood Pressure 102/48 Arterial Blood Pressure 121/57 Arterial Blood Pressure 121/58 Arterial Blood Pressure 117/56 Arterial Blood Pressure 115/55 Arterial Blood Pressure 104/53 Arterial Blood Pressure 119/58 Arterial Blood Pressure 133/65 Arterial Blood Pressure 137/66 Arterial Blood Pressure 126/61 Arterial Blood Pressure 121/59 Arterial Blood Pressure 120/59 Arterial Blood Pressure 124/58 Arterial Blood Pressure 112/51 Arterial Blood Pressure 99/43 Arterial Blood Pressure 96/44 GENERAL EXAM: Sedated and unresponsive, 60-year-old white male, synchronous with the ventilator. HEAD: Normocephalic and atraumatic EYES: Normal reaction of pupils, equal size. NOSE: Clear with pink turbinates. THROAT: No erythema or exudates. NECK: No masses, no JVD. CHEST: No chest wall deformity. There is a left subclavian triple lumen central line catheter LUNGS: Equal air entry with scattered coarse rhonchi. No wheezes, crackles, focal dullness. Intubated to the mechanical ventilator. CVS: S1 and S2 normal with no audible murmur, regular rhythm. No extra heart sounds ABDOMEN: No hepatosplenomegaly, active bowel sounds, no guarding or rigidity. SPINE: No scoliosis or deformity SKIN: No rashes CENTRAL NERVOUS SYSTEM: Unresponsive and sedated. No focal deficits, flaccid ext remities EXTREMITIES: There is no peripheral edema, clubbing, or cyanosis. Bilateral lateral great toe diabetic ulcers. Peripheral pulses are intact. There is a right femoral hemodialysis catheter Results - Laboratory Findings CBC and BMP: 02/28/23 18:30 02/28/23 18:30 ABG ABG pH 7.43 (7.35-7.45) 02/28/23 19:45 ABG pCO2 27 mmHg (35-45) L 02/28/23 19:45 ABG pO2 >400 mmHg (83-108) H 02/28/23 19:45 ABG O2 Saturation 100.0 % (94-97) H 02/28/23 19:45 PT/INR, D-dimer PT 12.8 sec (10.0-12.5) H 02/28/23 13:13 INR 1.2 (<1.2) H 02/28/23 13:13 Abnormal lab findings: Abnormal Labs 02/28/23 02/28/23 02/28/23 11:37 13:13 13:13 WBC 11.1 H RBC 2.89 L Hgb 8.3 L Hct 26.3 L Plt Count 142 L Neutrophils # 10.7 H Neutrophils # (Manual) Lymphocytes # 0.2 L Lymphocytes # (Manual) PT 12.8 H INR 1.2 H APTT ABG pCO2 ABG pO2 ABG HCO3 ABG Total CO2 ABG O2 Saturation Potassium Carbon Dioxide BUN Creatinine Glucose POC Glucose (mg/dL) 321 H Plasma Lactic Acid Yonathan Total Bilirubin Creatine Kinase Troponin I Albumin Urine Protein Urine Glucose (UA) Urine Blood Urine Bacteria 02/28/23 02/28/23 02/28/23 13:13 13:13 13:13 WBC RBC Hgb Hct Plt Count Neutrophils # Neutrophils # (Manual) Lymphocytes # Lymphocytes # (Manual) PT INR APTT ABG pCO2 ABG pO2 ABG HCO3 ABG Total CO2 ABG O2 Saturation Potassium 5.4 H Carbon Dioxide 10 L BUN 113 H* Creatinine 8.47 H* Glucose 324 H POC Glucose (mg/dL) Plasma Lactic Acid Yonathan 2.1 H* Total Bilirubin 2.0 H Creatine Kinase 1240 H* Troponin I Albumin 3.2 L Urine Protein 2+ H Urine Glucose (UA) 1+ H Urine Blood Small H Urine Bacteria Rare H 02/28/23 02/28/23 02/28/23 13:13 17:55 18:12 WBC RBC 2.77 L Hgb 8.0 L Hct 25.0 L Plt Count 139 L Neutrophils # Neutrophils # (Manual) Lymphocytes # Lymphocytes # (Manual) PT INR APTT ABG pCO2 ABG pO2 ABG HCO3 ABG Total CO2 ABG O2 Saturation Potassium Carbon Dioxide BUN Creatinine Glucose POC Glucose (mg/dL) 300 H Plasma Lactic Acid Yonathan Total Bilirubin Creatine Kinase Troponin I 0.457 H* Albumin Urine Protein Urine Glucose (UA) Urine Blood Urine Bacteria 02/28/23 02/28/23 02/28/23 18:12 18:13 18:13 WBC RBC Hgb Hct Plt Count Neutrophils # Neutrophils # (Manual) 8.40 H Lymphocytes # Lymphocytes # (Manual) PT INR APTT ABG pCO2 ABG pO2 ABG HCO3 ABG Total CO2 ABG O2 Saturation Potassium Carbon Dioxide 15 L BUN 105 H* Creatinine 7.32 H* Glucose 275 H POC Glucose (mg/dL) Plasma Lactic Acid Yonathan Total Bilirubin Creatine Kinase Troponin I 0.388 H* Albumin Urine Protein Urine Glucose (UA) Urine Blood Urine Bacteria 02/28/23 02/28/23 02/28/23 18:30 18:30 18:30 WBC RBC 2.48 L Hgb 7.1 L Hct 22.7 L Plt Count 120 L Neutrophils # Neutrophils # (Manual) Lymphocytes # Lymphocytes # (Manual) 0.23 L PT INR APTT 30.3 H ABG pCO2 ABG pO2 ABG HCO3 ABG Total CO2 ABG O2 Saturation Potassium Carbon Dioxide BUN Creatinine Glucose POC Glucose (mg/dL) Plasma Lactic Acid Yonathan 4.0 H* Total Bilirubin Creatine Kinase Troponin I Albumin Urine Protein Urine Glucose (UA) Urine Blood Urine Bacteria 02/28/23 02/28/23 02/28/23 18:30 18:30 19:45 WBC RBC Hgb Hct Plt Count Neutrophils # Neutrophils # (Manual) Lymphocytes # Lymphocytes # (Manual) PT INR APTT ABG pCO2 27 L ABG pO2 >400 H ABG HCO3 17 L ABG Total CO2 18 L ABG O2 Saturation 100.0 H Potassium Carbon Dioxide 15 L BUN 107 H* Creatinine 7.82 H* Glucose 282 H POC Glucose (mg/dL) Plasma Lactic Acid Yonathan Total Bilirubin Creatine Kinase Troponin I 0.422 H* Albumin Urine Protein Urine Glucose (UA) Urine Blood Urine Bacteria 02/28/23 02/28/23 21:02 23:42 WBC RBC Hgb Hct Plt Count Neutrophils # Neutrophils # (Manual) Lymphocytes # Lymphocytes # (Manual) PT INR APTT ABG pCO2 ABG pO2 ABG HCO3 ABG Total CO2 ABG O2 Saturation Potassium Carbon Dioxide BUN Creatinine Glucose POC Glucose (mg/dL) 336 H 371 H Plasma Lactic Acid Yonathan Total Bilirubin Creatine Kinase Troponin I Albumin Urine Protein Urine Glucose (UA) Urine Blood Urine Bacteria - Diagnostic Findings Chest x-ray: image reviewed Assessment and Plan Assessment: Witnessed PEA cardiac arrest with a limited down time of less than 5 minutes. Received one round of CPR and one mg of epinephrine. Acute hypoxemic respiratory failure, requiring intubation and mechanical ventilation, secondary to above Left lower lobe community-acquired pneumonia and sepsis. Metabolic anion gap acidosis, secondary to lactic acidosis and sepsis Hypotension, improved with fluid resuscitation. Not requiring vasopressors at this time. Acute on chronic kidney disease, currently receiving hemodialysis Acute rhabdomyolysis, with mildly elevated CPK Elevated troponins, likely related to supply/demand mismatch Anemia of chronic disease, hemoglobin lower than baseline, not active bleeding noted. Diabetes mellitus, insulin-dependent Hyperlipidemia Plan: Patient has been transferred to the intensive care unit and is status/post intubation by DIRECTOR BUSINESS. Currently, synchronous with the mechanical ventilator. Continue current ventilator settings. Chest x-ray and ABGs noted. Add ventilator bundle Dr. Lacy did come in and place a left subclavian triple-lumen central line catheter and a right wrist arterial line Blood pressure is now normotensive after fluid resuscitation, not requiring vasopressors at this time Continue antibiotics for community acquired pneumonia and sepsis. Blood and sputum cultures are pending Patient did have a right femoral groin hemodialysis catheter placed earlier, and is currently receiving emergent hemodialysis Nephrology is managing hemodialysis Continue sodium bicarb infusion monitor CPK Heparin for DVT prophylaxis and Protonix for GI prophylaxis Patient's condition is currently critical, prognosis is guarded related to above-mentioned comorbidities. Patient's CODE STATUS is currently full code. He will be monitored in the intensive care unit. I have personally seen and examined the patient, performed the documentation and the assessment and plan as written. Number of minutes spent on the visit:20 Time with Patient: Greater than 30
[2023-03-01 05:45] LABS: ABG Base Excess 3.1 mmol/L; ABG HCO3 25 mmol/L (21-25); ABG Oxygen Saturation 98.1 % (94-97); ABG PCO2 28 mmHg (35-45); ABG PO2 89 mmHg (83-108); ABG TCO2 26 mmol/L (19-24); Allen Test Performed? Yes
[2023-03-01 05:48] LABS: ABG PH 7.56 (7.35-7.45)
[2023-03-01 05:57] LABS: Glucose,Whole Blood 188 mg/dL (70-110)
[2023-03-01 06:19] LABS: HCT 22.9 % (39.0-53.0); HGB 7.7 gm/dL (13.0-17.5); MCHC 33.5 g/dL (31.0-37.0); Mean Platelet Volume 9.5; Platelet Count 146 k/uL (150-450); RBC 2.65 m/uL (4.30-5.90); RDW 14.6 % (11.5-15.5); WBC 11.4 k/uL (3.8-10.6)
[2023-03-01 06:28] LABS: MCV 86.6 fL (80.0-100.0)
[2023-03-01] MEDS: DEXTROSE 5% IN WATER 1,000 ML with SODIUM BICARB (1 MEQ/ML) 150 ML IV SCH (06:34)
[2023-03-01] MEDS: SODIUM CHLORIDE 0.9% 1,000 ML IV SCH ×3 (06:34→20:40)
[2023-03-01] MEDS: INSULIN ASPART (NovoLOG) 100 UNIT/ML VIAL SQ SCH ×3 (06:39→17:57)
[2023-03-01 07:10] LABS: African American GFR (CKD) 15 (>60 ml/min/1.73 sqM); Anion Gap 12 mmol/L; Blood Urea Nitrogen 62 mg/dL (9-20); Calcium 7.6 mg/dL (8.4-10.2); Carbon Dioxide 22 mmol/L (22-30); Chloride 102 mmol/L (98-107); Glucose 171 mg/dL (74-99); Non-African American GFR(CKD) 13 (>60 ml/min/1.73 sqM); Potassium 3.4 mmol/L (3.5-5.1); Sodium 136 mmol/L (137-145)
--- NOTE | 2023-03-01 07:48 | XR ---
EXAMINATION TYPE: XR chest 1V portable DATE OF EXAM: 03/01/2023 5:24 AM CLINICAL INDICATION:Male, 62 years old with history of Tube placement; [facility] COMPARISON: Chest radiographs from 02/28/2023 TECHNIQUE: XR chest 1V portable Frontal view of the chest. FINDINGS: Lungs/Pleura: Left lung base airspace opacities There is no evidence of pleural effusion, right focal consolidation, or pneumothorax. Pulmonary vascularity: Unremarkable. Heart/mediastinum: Cardiomediastinal silhouette is unremarkable. Musculoskeletal: No acute osseous pathology. Other findings: None Lines/Tubes: Endotracheal tube with distal tip 3.6 cm above the anika. Nasogastric tube with its distal tip and side-port projecting under the diaphragm. Left central venous catheter with distal tip at the cavoatrial junction. IMPRESSION: 1. Left lung base airspace opacities correlate for pneumonia. 2. Support tubes and left line in appropriate position.
[2023-03-01] MEDS: allopurinoL 100 MG TAB PO SCH (08:56)
[2023-03-01] MEDS: HEPARIN SODIUM,PORCINE 5,000 UNIT/ML 1 ML VIAL SQ SCH ×2 (08:56→21:56)
[2023-03-01] MEDS: PANTOPRAZOLE 40 MG/10 ML VIAL IVP SCH (08:56)
[2023-03-01] MEDS: CHLORHEXIDINE GLUCONATE 15 ML CUP MUCOUS MEM SCH ×2 (08:56→21:56)
[2023-03-01] MEDS ORDERED: AZITHROMYCIN 500 MG TAB PO SCH (09:00)
[2023-03-01] MEDS: PIPERACILLIN-TAZOBACTAM 3.375 GM in SODIUM CHLORIDE 0.9% 100 ML IVPB SCH ×2 (10:23→21:56)
--- NOTE | 2023-03-01 10:43 | PN ---
PROGRESS NOTE SUBJECTIVE: This is a 62-year-old gentleman, who was seen in the intensive care unit. I was called in for placement of urgent dialysis catheter. The patient had history of chronic kidney disease, hypertension, and history of diabetes mellitus. The patient came to the ER. He was found to be fell down at home. The patient was very lethargic and sleepy, was intubated. His potassium is 5.4, BUN 113, creatinine 8.47, and glucose 324. PHYSICAL EXAMINATION: GENERAL: The patient has been intubated. NECK: Supple. CHEST: Has crackles bilaterally. ABDOMEN: Soft and nontender. Femorals are 1+ bilaterally. PLAN: Placement of the dialysis catheter. Risks and complications discussed. MMODL / IJN: [id number] /
--- NOTE | 2023-03-01 11:15 | P.PN ---
Subjective Progress Note Date: 03/01/23 62 year old M with PMH of CKD, hypertension, gout, diabetes mellitus presents to the ED after being found down. Patient is lethargic and sleepy and majority of history is provided by his father. Patient is single, lives alone, takes care of his ADLs and IADL's and normally very active. Father states he has been dealing with a cold over the past week. Symptoms include cough, rhinorrhea, malaise, diarrhea, nausea and vomiting, poor appetite. Last time seen normal was yesterday at 6:30PM when he went to bed. Found down this morning by his father, apparently tried to use the washroom last night, unable to make it to bed, laid on the floor all night. EMS was subsequently called. In the ED, he underwent extensive workup. Tmax 100.7F. HR in the 90s. BP 92/47. 92% on RA. CBC showed leukocytosis of 11.1, hemoglobin of 8.3 and platelet count 142. INR 1.2 CMP showed potassium of 5.4, bicarb 10, BUN 113, creatinine 8.47, glucose 324, total bilirubin 2. Lactic acid 2.1. CPK 1240. Troponin 0.457. Acetone negative. Influenza, RSV, COVID-19 negative. Chest x-ray reviewed by me showed large left sided PNA. EKG showed sinus rhythm with no ST elevation. CODE BLUE was called yesterday. Patient was found to be in PEA arrest. He was given multiple amps of sodium bicarb and epinephrine. Patient was intubated. ROSC was achieved and he was transferred to the ICU. Dr. Lacy, Dr. Juarez and Dr. Simon was contacted. Emergent hemodialysis access was obtained and patient was started on dialysis. 03/01 Patient was seen and examined. Intubated in the ICU. Currently on propofol at 40 mcg/kg/min. Levophed running at 0.07 mcg/kg/hr. Currently on Rocephin and Azithromycin for antibiotics. CBC WBC count 11.4 and Hg 7.7, Plt 146. ABG pH 7.56, pCO2 28. BMP Na 136, K 3.4, BUN 62, Cr 4.55, glucose 171, Ca 7.7. Troponin 0.388, 0.422, 0.447. CXR shows left sided opacities, ET tube in place, NG tube and left central venous catheter. General: Intubated Derm: warm, dry Head: atraumatic, normocephalic, symmetric Eyes: EOMI, no lid lag, anicteric sclera Mouth: no lip lesion, dry membranes moist Cardiovascular: S1S2 tachycardic, no murmur Lungs: Coarse BS bilateral, no rhonchi, no rales , no accessory muscle use Abdominal: soft, nontender to palpation, + BS Ext: no gross muscle atrophy, no edema, no contractures Neuro: Unable to perform Psych: Intubated PEA arrest Acute hypoxic respiratory failure Sepsis related to community acquired pneumonia Acute kidney injury on chronic kidney disease Troponin elevation Acute metabolic encephalopathy Rhabdomyolysis Normocytic anemia Hypokalemia Chronic conditions: Hypertension, gout, diabetes mellitus Resolved: Metabolic acidosis, Hyperkalemia Based on my assessment of this patient, this patient meets a high complexity level of care. Patient has an acute diagnosis of sepsis related to community acquired PNA that poses a threat to life or bodily function. Also has ROSANGELA on CKD with severe acidosis and hyperkalemia likely requiring dialysis. Complicated with troponin elevation and rhabomyolysis. PEA arrest: Status post ROSC 02/28. Acute hypoxic respiratory failure: Ventilator support. Pulm toileting. Sepsis related to community acquired pneumonia: Hold Coreg. BCx. Sputum Cx. Legionella Ag. Rocephin 2g IV QD and Azithromycin 500 mg PO QD. NS at 100 cc/hr. Telemetry monitoring. Titrate Levophed to maintain MAP > 65. Pulmonology and ID on board. Acute kidney injury on chronic kidney disease: Multifactorial. Sepsis. Dehydration due to N/V, poor appetite and diarrhea. Underwent emergent HD on 02/28. Nephrology on board. Troponin elevation: Likely due to demand ischemia. Trop flat. Echocardiogram. Acute metabolic encephalopathy: Likely related to above. Fall precautions. PT and OT consult when able to participate. Rhabdomyolysis: Hold simvastatin. IV hydration as above. Repeat levels tomorrow. Normocytic anemia: Likely AOCD due to CKD. Transfuse if Hg < 7. Hypokalemia: Replace via protocol. Father is the decision maker. FULL CODE. Heparin 5000 units SQ BID for DVT prophylaxis. Protonix 40 mg IV QD for GI prophylaxis. I have reviewed the following revenue cycle consultant notes: Pulm consult note. I have reviewed the results of the following tests: As above. I have ordered the following tests: Pending: Hepatitis labs. BCx. Sputum Cx. Legionella. A1c. Procal. CPK. Iron studies. CBC and BMP ordered for tomorrow bc. I have discussed the care of this patient with the following independent historian: I have independently interpreted the following test below: CXR as above. I have discussed the management of this patient with the following physician: This patient meets a high level of care for the following reasons: Patient requires IV vasopressors which requires intensive monitoring of hemodynamics. Patient requires IV anesthetics to be maintained on the ventilator which requires intensive monitoring of hemodynamics and respiratory toxicity. Objective - Vital Signs Vital signs: Vital Signs Temp 98.3 F 03/01/23 04:20 Pulse 97 03/01/23 07:15 Resp 11 L 03/01/23 07:15 BP 103/67 03/01/23 07:15 Pulse Ox 99 03/01/23 07:15 FiO2 50 03/01/23 07:23 Intake & Output 02/28/23 03/01/23 03/01/23 18:59 06:59 18:59 Intake Total 2497.408 110 Output Total 825 0 Balance 1672.408 110 Weight 71.214 kg 73.5 kg Intake: IV 1810 110 Dextrose 5% in Water 1, 1100 100 000 ml @ 100 mls/hr IV . [id number] GALINDO with Sodium Bicarb (1 Meq/ml) 150 ml Rx#:[id number] KVO 60 10 Sodium Chloride 0.9% 1, 650 000 ml @ 130 mls/hr IV . [id number] GALINDO Rx#:[id number] Intake, IV Titration 187.408 Amount Norepinephrine 4 mg In 24.916 Sodium Chloride 0.9% 250 ml @ 0.03 MCG/KG/MIN 8.14 mls/hr IV .Q24H GALINDO Rx#: [id number] propofoL 1,000 mg In 162.492 Empty Bag 1 bag @ 15 MCG/ KG/MIN 6.409 mls/hr IV . [id number] GALINDO Rx#:[id number] Hemodialysis 500 Output: Urine 325 0 Hemodialysis 500 Other: Voiding Method Indwelling Catheter ABP, PAP, CO, CI - Last Documented Arterial Blood Pressure 110/64 - Labs CBC & Chem 7: 03/01/23 05:50 03/01/23 05:50 Labs: Abnormal Lab Results - Last 24 Hours (Table) 02/28/23 02/28/23 02/28/23 Range/Units 11:37 13:13 13:13 WBC 11.1 H (3.8-10.6) k/uL RBC 2.89 L (4.30-5.90) m/uL Hgb 8.3 L (13.0-17.5) gm/dL Hct 26.3 L (39.0-53.0) % Plt Count 142 L (150-450) k/uL Neutrophils # 10.7 H (1.3-7.7) k/uL Neutrophils # (Manual) (1.3-7.7) k/uL Lymphocytes # 0.2 L (1.0-4.8) k/uL Lymphocytes # (Manual) (1.0-4.8) k/uL PT 12.8 H (10.0-12.5) sec INR 1.2 H (<1.2) APTT (22.0-30.0) sec ABG pH (7.35-7.45) ABG pCO2 (35-45) mmHg ABG pO2 (83-108) mmHg ABG HCO3 (21-25) mmol/L ABG Total CO2 (19-24) mmol/L ABG O2 Saturation (94-97) % Sodium (137-145) mmol/L Potassium (3.5-5.1) mmol/L Carbon Dioxide (22-30) mmol/L BUN (9-20) mg/dL Creatinine (0.66-1.25) mg/dL Glucose (74-99) mg/dL POC Glucose (mg/dL) 321 H (70-110) mg/dL Plasma Lactic Acid Yonathan (0.7-2.0) mmol/L Calcium (8.4-10.2) mg/dL Total Bilirubin (0.2-1.3) mg/dL Creatine Kinase (55-170) U/L Troponin I (0.000-0.034) ng/mL Albumin (3.5-5.0) g/dL Urine Protein (Negative) Urine Glucose (UA) (Negative) Urine Blood (Negative) Urine Bacteria (None) /hpf 02/28/23 02/28/23 02/28/23 Range/Units 13:13 13:13 13:13 WBC (3.8-10.6) k/uL RBC (4.30-5.90) m/uL Hgb (13.0-17.5) gm/dL Hct (39.0-53.0) % Plt Count (150-450) k/uL Neutrophils # (1.3-7.7) k/uL Neutrophils # (Manual) (1.3-7.7) k/uL Lymphocytes # (1.0-4.8) k/uL Lymphocytes # (Manual) (1.0-4.8) k/uL PT (10.0-12.5) sec INR (<1.2) APTT (22.0-30.0) sec ABG pH (7.35-7.45) ABG pCO2 (35-45) mmHg ABG pO2 (83-108) mmHg ABG HCO3 (21-25) mmol/L ABG Total CO2 (19-24) mmol/L ABG O2 Saturation (94-97) % Sodium (137-145) mmol/L Potassium 5.4 H (3.5-5.1) mmol/L Carbon Dioxide 10 L (22-30) mmol/L BUN 113 H* (9-20) mg/dL Creatinine 8.47 H* (0.66-1.25) mg/dL Glucose 324 H (74-99) mg/dL POC Glucose (mg/dL) (70-110) mg/dL Plasma Lactic Acid Yonathan 2.1 H* (0.7-2.0) mmol/L Calcium (8.4-10.2) mg/dL Total Bilirubin 2.0 H (0.2-1.3) mg/dL Creatine Kinase 1240 H* (55-170) U/L Troponin I (0.000-0.034) ng/mL Albumin 3.2 L (3.5-5.0) g/dL Urine Protein 2+ H (Negative) Urine Glucose (UA) 1+ H (Negative) Urine Blood Small H (Negative) Urine Bacteria Rare H (None) /hpf 02/28/23 02/28/23 02/28/23 Range/Units 13:13 17:55 18:12 WBC (3.8-10.6) k/uL RBC 2.77 L (4.30-5.90) m/uL Hgb 8.0 L (13.0-17.5) gm/dL Hct 25.0 L (39.0-53.0) % Plt Count 139 L (150-450) k/uL Neutrophils # (1.3-7.7) k/uL Neutrophils # (Manual) (1.3-7.7) k/uL Lymphocytes # (1.0-4.8) k/uL Lymphocytes # (Manual) (1.0-4.8) k/uL PT (10.0-12.5) sec INR (<1.2) APTT (22.0-30.0) sec ABG pH (7.35-7.45) ABG pCO2 (35-45) mmHg ABG pO2 (83-108) mmHg ABG HCO3 (21-25) mmol/L ABG Total CO2 (19-24) mmol/L ABG O2 Saturation (94-97) % Sodium (137-145) mmol/L Potassium (3.5-5.1) mmol/L Carbon Dioxide (22-30) mmol/L BUN (9-20) mg/dL Creatinine (0.66-1.25) mg/dL Glucose (74-99) mg/dL POC Glucose (mg/dL) 300 H (70-110) mg/dL Plasma Lactic Acid Yonathan (0.7-2.0) mmol/L Calcium (8.4-10.2) mg/dL Total Bilirubin (0.2-1.3) mg/dL Creatine Kinase (55-170) U/L Troponin I 0.457 H* (0.000-0.034) ng/mL Albumin (3.5-5.0) g/dL Urine Protein (Negative) Urine Glucose (UA) (Negative) Urine Blood (Negative) Urine Bacteria (None) /hpf 02/28/23 02/28/23 02/28/23 Range/Units 18:12 18:13 18:13 WBC (3.8-10.6) k/uL RBC (4.30-5.90) m/uL Hgb (13.0-17.5) gm/dL Hct (39.0-53.0) % Plt Count (150-450) k/uL Neutrophils # (1.3-7.7) k/uL Neutrophils # (Manual) 8.40 H (1.3-7.7) k/uL Lymphocytes # (1.0-4.8) k/uL Lymphocytes # (Manual) (1.0-4.8) k/uL PT (10.0-12.5) sec INR (<1.2) APTT (22.0-30.0) sec ABG pH (7.35-7.45) ABG pCO2 (35-45) mmHg ABG pO2 (83-108) mmHg ABG HCO3 (21-25) mmol/L ABG Total CO2 (19-24) mmol/L ABG O2 Saturation (94-97) % Sodium (137-145) mmol/L Potassium (3.5-5.1) mmol/L Carbon Dioxide 15 L (22-30) mmol/L BUN 105 H* (9-20) mg/dL Creatinine 7.32 H* (0.66-1.25) mg/dL Glucose 275 H (74-99) mg/dL POC Glucose (mg/dL) (70-110) mg/dL Plasma Lactic Acid Yonathan (0.7-2.0) mmol/L Calcium (8.4-10.2) mg/dL Total Bilirubin (0.2-1.3) mg/dL Creatine Kinase (55-170) U/L Troponin I 0.388 H* (0.000-0.034) ng/mL Albumin (3.5-5.0) g/dL Urine Protein (Negative) Urine Glucose (UA) (Negative) Urine Blood (Negative) Urine Bacteria (None) /hpf 02/28/23 02/28/23 02/28/23 Range/Units 18:30 18:30 18:30 WBC (3.8-10.6) k/uL RBC 2.48 L (4.30-5.90) m/uL Hgb 7.1 L (13.0-17.5) gm/dL Hct 22.7 L (39.0-53.0) % Plt Count 120 L (150-450) k/uL Neutrophils # (1.3-7.7) k/uL Neutrophils # (Manual) (1.3-7.7) k/uL Lymphocytes # (1.0-4.8) k/uL Lymphocytes # (Manual) 0.23 L (1.0-4.8) k/uL PT (10.0-12.5) sec INR (<1.2) APTT 30.3 H (22.0-30.0) sec ABG pH (7.35-7.45) ABG pCO2 (35-45) mmHg ABG pO2 (83-108) mmHg ABG HCO3 (21-25) mmol/L ABG Total CO2 (19-24) mmol/L ABG O2 Saturation (94-97) % Sodium (137-145) mmol/L Potassium (3.5-5.1) mmol/L Carbon Dioxide (22-30) mmol/L BUN (9-20) mg/dL Creatinine (0.66-1.25) mg/dL Glucose (74-99) mg/dL POC Glucose (mg/dL) (70-110) mg/dL Plasma Lactic Acid Yonathan 4.0 H* (0.7-2.0) mmol/L Calcium (8.4-10.2) mg/dL Total Bilirubin (0.2-1.3) mg/dL Creatine Kinase (55-170) U/L Troponin I (0.000-0.034) ng/mL Albumin (3.5-5.0) g/dL Urine Protein (Negative) Urine Glucose (UA) (Negative) Urine Blood (Negative) Urine Bacteria (None) /hpf 02/28/23 02/28/23 02/28/23 Range/Units 18:30 18:30 19:45 WBC (3.8-10.6) k/uL RBC (4.30-5.90) m/uL Hgb (13.0-17.5) gm/dL Hct (39.0-53.0) % Plt Count (150-450) k/uL Neutrophils # (1.3-7.7) k/uL Neutrophils # (Manual) (1.3-7.7) k/uL Lymphocytes # (1.0-4.8) k/uL Lymphocytes # (Manual) (1.0-4.8) k/uL PT (10.0-12.5) sec INR (<1.2) APTT (22.0-30.0) sec ABG pH (7.35-7.45) ABG pCO2 27 L (35-45) mmHg ABG pO2 >400 H (83-108) mmHg ABG HCO3 17 L (21-25) mmol/L ABG Total CO2 18 L (19-24) mmol/L ABG O2 Saturation 100.0 H (94-97) % Sodium (137-145) mmol/L Potassium (3.5-5.1) mmol/L Carbon Dioxide 15 L (22-30) mmol/L BUN 107 H* (9-20) mg/dL Creatinine 7.82 H* (0.66-1.25) mg/dL Glucose 282 H (74-99) mg/dL POC Glucose (mg/dL) (70-110) mg/dL Plasma Lactic Acid Yonathan (0.7-2.0) mmol/L Calcium (8.4-10.2) mg/dL Total Bilirubin (0.2-1.3) mg/dL Creatine Kinase (55-170) U/L Troponin I 0.422 H* (0.000-0.034) ng/mL Albumin (3.5-5.0) g/dL Urine Protein (Negative) Urine Glucose (UA) (Negative) Urine Blood (Negative) Urine Bacteria (None) /hpf 02/28/23 02/28/23 03/01/23 Range/Units 21:02 23:42 05:40 WBC (3.8-10.6) k/uL RBC (4.30-5.90) m/uL Hgb (13.0-17.5) gm/dL Hct (39.0-53.0) % Plt Count (150-450) k/uL Neutrophils # (1.3-7.7) k/uL Neutrophils # (Manual) (1.3-7.7) k/uL Lymphocytes # (1.0-4.8) k/uL Lymphocytes # (Manual) (1.0-4.8) k/uL PT (10.0-12.5) sec INR (<1.2) APTT (22.0-30.0) sec ABG pH 7.56 H* (7.35-7.45) ABG pCO2 28 L (35-45) mmHg ABG pO2 (83-108) mmHg ABG HCO3 (21-25) mmol/L ABG Total CO2 26 H (19-24) mmol/L ABG O2 Saturation 98.1 H (94-97) % Sodium (137-145) mmol/L Potassium (3.5-5.1) mmol/L Carbon Dioxide (22-30) mmol/L BUN (9-20) mg/dL Creatinine (0.66-1.25) mg/dL Glucose (74-99) mg/dL POC Glucose (mg/dL) 336 H 371 H (70-110) mg/dL Plasma Lactic Acid Yonathan (0.7-2.0) mmol/L Calcium (8.4-10.2) mg/dL Total Bilirubin (0.2-1.3) mg/dL Creatine Kinase (55-170) U/L Troponin I (0.000-0.034) ng/mL Albumin (3.5-5.0) g/dL Urine Protein (Negative) Urine Glucose (UA) (Negative) Urine Blood (Negative) Urine Bacteria (None) /hpf 03/01/23 03/01/23 03/01/23 Range/Units 05:50 05:50 05:55 WBC 11.4 H (3.8-10.6) k/uL RBC 2.65 L (4.30-5.90) m/uL Hgb 7.7 L (13.0-17.5) gm/dL Hct 22.9 L (39.0-53.0) % Plt Count 146 L (150-450) k/uL Neutrophils # (1.3-7.7) k/uL Neutrophils # (Manual) (1.3-7.7) k/uL Lymphocytes # (1.0-4.8) k/uL Lymphocytes # (Manual) (1.0-4.8) k/uL PT (10.0-12.5) sec INR (<1.2) APTT (22.0-30.0) sec ABG pH (7.35-7.45) ABG pCO2 (35-45) mmHg ABG pO2 (83-108) mmHg ABG HCO3 (21-25) mmol/L ABG Total CO2 (19-24) mmol/L ABG O2 Saturation (94-97) % Sodium 136 L (137-145) mmol/L Potassium 3.4 L (3.5-5.1) mmol/L Carbon Dioxide (22-30) mmol/L BUN 62 H (9-20) mg/dL Creatinine 4.55 H (0.66-1.25) mg/dL Glucose 171 H (74-99) mg/dL POC Glucose (mg/dL) 188 H (70-110) mg/dL Plasma Lactic Acid Yonathan (0.7-2.0) mmol/L Calcium 7.6 L (8.4-10.2) mg/dL Total Bilirubin (0.2-1.3) mg/dL Creatine Kinase (55-170) U/L Troponin I (0.000-0.034) ng/mL Albumin (3.5-5.0) g/dL Urine Protein (Negative) Urine Glucose (UA) (Negative) Urine Blood (Negative) Urine Bacteria (None) /hpf 03/01/23 Range/Units 06:15 WBC (3.8-10.6) k/uL RBC (4.30-5.90) m/uL Hgb (13.0-17.5) gm/dL Hct (39.0-53.0) % Plt Count (150-450) k/uL Neutrophils # (1.3-7.7) k/uL Neutrophils # (Manual) (1.3-7.7) k/uL Lymphocytes # (1.0-4.8) k/uL Lymphocytes # (Manual) (1.0-4.8) k/uL PT (10.0-12.5) sec INR (<1.2) APTT (22.0-30.0) sec ABG pH (7.35-7.45) ABG pCO2 (35-45) mmHg ABG pO2 (83-108) mmHg ABG HCO3 (21-25) mmol/L ABG Total CO2 (19-24) mmol/L ABG O2 Saturation (94-97) % Sodium (137-145) mmol/L Potassium (3.5-5.1) mmol/L Carbon Dioxide (22-30) mmol/L BUN (9-20) mg/dL Creatinine (0.66-1.25) mg/dL Glucose (74-99) mg/dL POC Glucose (mg/dL) (70-110) mg/dL Plasma Lactic Acid Yonathan (0.7-2.0) mmol/L Calcium (8.4-10.2) mg/dL Total Bilirubin (0.2-1.3) mg/dL Creatine Kinase (55-170) U/L Troponin I 0.447 H* (0.000-0.034) ng/mL Albumin (3.5-5.0) g/dL Urine Protein (Negative) Urine Glucose (UA) (Negative) Urine Blood (Negative) Urine Bacteria (None) /hpf
--- NOTE | 2023-03-01 11:29 | CA ---
Transthoracic Echo Report Name: Franky Clay Age: 62 Gender: M : 1960 Exam Date: 03/01/2023 09:46 Exam Location: [facility] Ht (in): 67 Wt (lb): 157 Ordering Physician: Joselo Roman MD Attending/Referring Phys: Flow Machine Operator Phong Oglesby Procedure CPT: Indications: trop Cardiac Hx: Technical Quality: Fair Contrast 1: Total Dose (mL): Contrast 2: Total Dose (mL): MEASUREMENTS (Male / Female) Normal Values 2D ECHO LV Diastolic Diameter PLAX 5.7 cm 4.2 - 5.9 / 3.9 - 5.3 cm LV Systolic Diameter PLAX 4.8 cm IVS Diastolic Thickness 1.0 cm 0.6 - 1.0 / 0.6 - 0.9 cm LVPW Diastolic Thickness 1.2 cm 0.6 - 1.0 / 0.6 - 0.9 cm LV Relative Wall Thickness 0.4 RV Internal Dim ED PLAX 2.6 cm LVOT Diameter 2.1 cm Aortic Root Diameter 3.0 cm LA Systolic Diameter LX 3.7 cm 3.0 - 4.0 / 2.7 - 3.8 cm LV Diastolic Volume MOD BP 85.0 cm??? 67 - 155 / 56 - 104 cm??? LV Systolic Volume MOD BP 62.9 cm??? - / 19 - 49 cm??? LV Ejection Fraction MOD BP 25.9 % >= 55 % LV Cardiac Index MOD BP 1183.1 cm???/min???m??? LV Diastolic Volume MOD 4C 80.4 cm??? LV Systolic Volume MOD 4C 53.6 cm??? LV Ejection Fraction MOD 4C 33.3 % LV Cardiac Index MOD 4C 1440.0 cm???/min???m??? LV Diastolic Length 4C 6.6 cm LV Systolic Length 4C 6.1 cm LV Diastolic Volume MOD 2C 84.2 cm??? LV Systolic Volume MOD 2C 66.3 cm??? LV Ejection Fraction MOD 2C 21.3 % LV Cardiac Index MOD 2C 961.2 cm???/min???m??? LV Diastolic Length 2C 7.1 cm LV Systolic Length 2C 6.9 cm LA Volume 100.1 cm??? 18 - 58 / 22 - 52 cm??? LA Volume Index 54.3 cm???/m??? 16 - 28 cm???/m??? Ascending Aorta Diameter 2.9 cm DOPPLER AV Peak Velocity 114.8 cm/s AV Peak Gradient 5.3 mmHg LVOT Peak Velocity 63.8 cm/s LVOT Peak Gradient 1.6 mmHg LVOT Velocity Time Integral 10.6 cm LVOT Stroke Volume 38.5 cm??? LVOT Stroke Volume Index 21.1 ml/m??? LVOT Cardiac Index 2069.8 cm???/min???m??? AV Area Cont Eq pk 2.0 cm??? MV Peak Velocity 136.0 cm/s MV Peak Gradient 7.4 mmHg MV Mean Velocity 60.0 cm/s MV Mean Gradient 1.9 mmHg MV Velocity Time Integral 23.0 cm MR Peak Velocity 243.8 cm/s MR Peak Gradient 23.8 mmHg Mitral E Point Velocity 136.5 cm/s Mitral A Point Velocity 51.9 cm/s Mitral E to A Ratio 2.6 MV Deceleration Time 151.3 ms MV E' Velocity 3.7 cm/s Mitral E to MV E' Ratio 37.3 TR Peak Velocity 259.7 cm/s TR Peak Gradient 27.0 mmHg Right Ventricular Systolic Press 32.0 mmHg PV Peak Velocity 69.4 cm/s PV Peak Gradient 1.9 mmHg FINDINGS Left Ventricle Mildly increased left ventricular systolic volume. Severely decreased left ventricular ejection fracton. Left ventricular ejection fraction is estimated at 20-25 %. Global hypokinesis with no segmental wall motion abnormality Right Ventricle Normal right ventricular size. RVSP= 32mmHg. Right Atrium Normal right atrial size. Left Atrium Severely increased left atrial volume. Mildly increased left atrial area. LA volume index= 55ml/m2 Mitral Valve Structurally normal mitral valve. Mitral annular calcification. Mild-to- moderate mitral regurgitation. Aortic Valve Trileaflet aortic valve. No aortic valve stenosis or regurgitation. Tricuspid Valve Structurally normal tricuspid valve. [id number] tricuspid regurgitation. Pulmonic Valve Pulmonic valve not well visualized. No pulmonic regurgitation. Pericardium No pericardial effusion. Aorta Normal size aortic root. CONCLUSIONS 1. Severely impaired left ventricular systolic function with global hypokinesis 2. Mild to moderate mitral and tricuspid regurgitation Previewed by: Dr. Yuliet Osuna MD (Electronically Signed) Final Date: 01 March 2023 11:27
[2023-03-01 11:54] LABS: Glucose,Whole Blood 143 mg/dL (70-110)
[2023-03-01] MEDS ORDERED: SODIUM CHLORIDE 0.9% 1,000 ML IV ONE (12:13)
--- NOTE | 2023-03-01 12:23 | P.NPCON ---
History of Present Illness - Reason for Consult acute renal failure - History of Present Illness Patient is a 62-year-old male who came into the ER after being found by his father. It appears that patient had been feeling ill for a few days prior to his admission. Patient fell while going to the bathroom and was too weak to get up. It is unclear as to how long he had been down. Patient has underlying history of chronic kidney disease NKF stage 4-5 with baseline creatinine around 3 mg/dL in July 2022. Underlying history of diabetes hypertension and hypertension. Patient has been referred in August for establishment of access for hemodialysis as well as transplant but has has not made his appointment with vascular surgery yet. Patient was hypotensive in the ER and significantly acidotic with CO2 of 10. He became progressively hypotensive and had a cardiac arrest with PEA. Down time about 5 minutes. Patient was intubated and transferred to the ICU. He received multiple doses of sodium bicarb. Patient was also dialyzed last night for severe metabolic acidosis. Potassium was 5.4 on admission. Currently with no significant urine output Patient is maintained on low-dose Levophed. FiO2 50% No fever noted. Review of Systems As per HPI Past Medical History Past Medical History: Blood Disorder, Diabetes Mellitus, Hypertension, Renal Disease, Skin Disorder Additional Past Medical History / Comment(s): diabetic ulcers jose feet, iron infusion 3 weeks ago. IRON DEFICIENCY ANEMIA. History of Any Multi-Drug Resistant Organisms: None Reported Past Surgical History: Tonsillectomy Additional Past Surgical History / Comment(s): kidney biopsy Past Anesthesia/Blood Transfusion Reactions: No Reported Reaction Past Psychological History: No Psychological Hx Reported Smoking Status: Never smoker Past Alcohol Use History: Rare Past Drug Use History: None Reported - Past Family History Mother Family Medical History: Congestive Heart Failure (CHF), Coronary Artery Disease (CAD), Diabetes Mellitus Father Family Medical History: Cancer, Diabetes Mellitus Medications and Allergies Home Medications Medication Instructions Recorded Confirmed Type Insulin Aspart [NovoLOG Flexpen] 7 units SQ AC-BID 03/08/18 02/28/23 History allopurinoL [Zyloprim] 100 mg PO DAILY 03/08/18 02/28/23 History calcitrioL [Calcitriol] 0.25 mcg PO MOTUWETHFR 03/08/18 02/28/23 History Ergocalciferol (Vitamin D2) 1,250 mcg PO Q14D 02/28/23 02/28/23 History [Drisdol (50,000 Iu)] Sildenafil Citrate 50 mg PO DAILY PRN 02/28/23 02/28/23 History Simvastatin 10 mg PO DAILY 02/28/23 02/28/23 History carvediloL [Coreg] 6.25 mg PO BID 02/28/23 02/28/23 History Allergies Allergy/AdvReac Type Severity Reaction Status Date / Time No Known Allergies Allergy Verified 02/28/23 16:15 Physical Exam Vitals: Vital Signs Temp Pulse Pulse Resp BP BP Pulse Ox 03/01/23 11:15 91 22 92 L 03/01/23 11:00 95 22 101/73 97 03/01/23 10:51 03/01/23 10:45 93 22 101/73 96 03/01/23 10:30 93 22 101/73 97 03/01/23 10:15 92 22 101/73 97 03/01/23 10:00 95 17 101/73 98 03/01/23 09:45 95 18 101/73 97 03/01/23 09:30 98 22 101/73 97 03/01/23 09:15 90 23 101/73 96 03/01/23 09:00 98 16 101/73 99 03/01/23 08:45 98 15 99 03/01/23 08:30 85 20 99 03/01/23 08:15 97 14 99 03/01/23 08:00 100 F H 96 17 99 03/01/23 07:45 96 17 99 03/01/23 07:30 96 14 99 03/01/23 07:23 03/01/23 07:15 97 11 L 103/67 99 03/01/23 07:00 97 9 L 103/67 99 03/01/23 06:45 98 99 03/01/23 06:30 96 22 99 03/01/23 06:15 92 99 03/01/23 06:00 94 22 99 03/01/23 05:45 98 98 03/01/23 05:30 87 22 98 03/01/23 05:15 88 22 97 03/01/23 05:00 90 9 L 96 03/01/23 04:45 88 20 98 03/01/23 04:30 85 22 98 03/01/23 04:20 98.3 F 91 25 H 113/75 03/01/23 04:15 86 22 103/67 98 03/01/23 04:00 98.3 F 89 22 97 03/01/23 03:55 03/01/23 03:45 115 H 22 96 03/01/23 03:30 84 17 96 03/01/23 03:15 96 22 95 03/01/23 03:00 84 22 96 03/01/23 02:45 107 H 22 95 03/01/23 02:30 107 H 22 95 03/01/23 02:15 105 H 22 95 03/01/23 02:00 112 H 22 96 03/01/23 01:45 78 22 98 03/01/23 01:30 76 22 96/63 98 03/01/23 01:15 77 22 99 03/01/23 01:00 76 22 99 03/01/23 00:45 76 22 99 03/01/23 00:30 77 22 99 03/01/23 00:15 76 22 99 03/01/23 00:05 77 22 96/63 99 03/01/23 00:01 03/01/23 00:00 98.2 F 77 22 98 02/28/23 23:45 78 22 98 02/28/23 23:30 77 22 98 02/28/23 23:15 76 22 98 02/28/23 23:00 80 20 98 02/28/23 22:45 75 22 98 02/28/23 22:30 78 22 98 02/28/23 22:15 79 22 99 02/28/23 22:00 77 22 98 02/28/23 21:45 75 22 98 02/28/23 21:30 74 22 98 02/28/23 21:15 76 22 98 02/28/23 21:00 85 22 99 02/28/23 20:45 102 H 22 98 02/28/23 20:30 84 22 111/68 99 02/28/23 20:15 80 111/68 98 02/28/23 20:13 02/28/23 20:00 98.3 F 84 22 103/65 99 02/28/23 19:50 02/28/23 19:45 81 22 103/65 100 02/28/23 19:30 81 89/59 100 02/28/23 19:15 80 89/59 100 02/28/23 19:00 89 93/59 100 02/28/23 18:45 101/68 100 02/28/23 18:30 98 22 100/64 100 02/28/23 18:18 02/28/23 18:15 02/28/23 17:42 78 16 69/33 02/28/23 16:51 89 16 97/61 97 02/28/23 16:30 98.1 F 90 18 98/61 97 02/28/23 15:28 99.1 F 02/28/23 13:20 100.7 F H 97 20 92/47 93 L FiO2 03/01/23 11:15 03/01/23 11:00 03/01/23 10:51 50 03/01/23 10:45 03/01/23 10:30 03/01/23 10:15 03/01/23 10:00 03/01/23 09:45 03/01/23 09:30 03/01/23 09:15 03/01/23 09:00 03/01/23 08:45 03/01/23 08:30 03/01/23 08:15 03/01/23 08:00 50 03/01/23 07:45 03/01/23 07:30 03/01/23 07:23 50 03/01/23 07:15 03/01/23 07:00 03/01/23 06:45 03/01/23 06:30 03/01/23 06:15 03/01/23 06:00 03/01/23 05:45 03/01/23 05:30 03/01/23 05:15 03/01/23 05:00 03/01/23 04:45 03/01/23 04:30 03/01/23 04:20 03/01/23 04:15 03/01/23 04:00 50 03/01/23 03:55 50 03/01/23 03:45 03/01/23 03:30 03/01/23 03:15 03/01/23 03:00 03/01/23 02:45 03/01/23 02:30 03/01/23 02:15 03/01/23 02:00 03/01/23 01:45 03/01/23 01:30 03/01/23 01:15 03/01/23 01:00 03/01/23 00:45 03/01/23 00:30 03/01/23 00:15 03/01/23 00:05 03/01/23 00:01 50 03/01/23 00:00 50 02/28/23 23:45 02/28/23 23:30 02/28/23 23:15 02/28/23 23:00 02/28/23 22:45 02/28/23 22:30 02/28/23 22:15 02/28/23 22:00 02/28/23 21:45 02/28/23 21:30 02/28/23 21:15 02/28/23 21:00 02/28/23 20:45 02/28/23 20:30 02/28/23 20:15 02/28/23 20:13 50 02/28/23 20:00 50 02/28/23 19:50 50 02/28/23 19:45 02/28/23 19:30 02/28/23 19:15 02/28/23 19:00 02/28/23 18:45 02/28/23 18:30 02/28/23 18:18 100 02/28/23 18:15 100 02/28/23 17:42 02/28/23 16:51 02/28/23 16:30 02/28/23 15:28 02/28/23 13:20 Intake and Output 02/28/23 03/01/23 03/01/23 22:59 06:59 14:59 Intake Total 739.349 0660.933 757.704 Output Total 300 525 10 Balance 097.013 1209.933 747.704 Intake: IV 690 1120 660 Dextrose 5% in Water 1, 300 800 100 000 ml @ 100 mls/hr IV . [id number] GALINDO with Sodium Bicarb (1 Meq/ml) 150 ml Rx#:[id number] KVO 60 10 Piperacillin-Tazobactam 3 100 .375 gm In Sodium Chloride 0.9% 100 ml @ 25 mls/hr IVPB Q12HR GALINDO Rx #:[id number] Sodium Chloride 0.9% 1, 400 000 ml @ 100 mls/hr IV . Q10H GALINDO Rx#:[id number] Sodium Chloride 0.9% 1, 390 260 000 ml @ 130 mls/hr IV . [id number] GALINDO Rx#:[id number] cefTRIAXone 2 gm In 50 Sodium Chloride 0.9% 50 ml @ 100 mls/hr IVPB Q24HR GALINDO Rx#:[id number] Intake, IV Titration 74.475 112.933 97.704 Amount Norepinephrine 4 mg In 11.983 12.933 Sodium Chloride 0.9% 250 ml @ 0.03 MCG/KG/MIN 8.14 mls/hr IV .Q24H GALINDO Rx#: [id number] propofoL 1,000 mg In 62.492 100 97.704 Empty Bag 1 bag @ 15 MCG/ KG/MIN 6.409 mls/hr IV . [id number] GALINDO Rx#:[id number] Hemodialysis 500 Output: Urine 300 25 10 Hemodialysis 500 Other: Voiding Method Indwelling Catheter Indwelling Catheter Weight 71.214 kg 73.5 kg 73.5 kg ABP, PAP, CO, CI - Last 8 Hours Arterial Blood Pressure 76/47 Arterial Blood Pressure 89/49 Arterial Blood Pressure 94/48 Arterial Blood Pressure 92/46 Arterial Blood Pressure 95/49 Arterial Blood Pressure 94/53 Arterial Blood Pressure 93/53 Arterial Blood Pressure 103/54 Arterial Blood Pressure 101/53 Arterial Blood Pressure 103/60 Arterial Blood Pressure 104/61 Arterial Blood Pressure 106/59 Arterial Blood Pressure 107/52 Arterial Blood Pressure 102/62 Arterial Blood Pressure 110/63 Arterial Blood Pressure 111/63 Arterial Blood Pressure 110/64 Arterial Blood Pressure 110/63 Arterial Blood Pressure 104/64 Arterial Blood Pressure 98/60 Arterial Blood Pressure 188/107 Arterial Blood Pressure 94/59 Arterial Blood Pressure 100/57 Arterial Blood Pressure 103/55 Arterial Blood Pressure 99/56 Arterial Blood Pressure 85/48 Arterial Blood Pressure 104/60 Arterial Blood Pressure 101/63 Arterial Blood Pressure 107/62 Patient is sedated and on the vent Examination of the heart S1 and S2 Examination of the lungs bilateral breath sounds are heard Abdomen is soft nontender Examination of lower extremities shows no significant edema Results - Lab Results Most recent lab results ABG pH 7.56 (7.35-7.45) H* 03/01/23 05:40 ABG pCO2 28 mmHg (35-45) L 03/01/23 05:40 ABG pO2 89 mmHg (83-108) 03/01/23 05:40 ABG HCO3 25 mmol/L (21-25) 03/01/23 05:40 ABG O2 Saturation 98.1 % (94-97) H 03/01/23 05:40 Calcium 7.6 mg/dL (8.4-10.2) L 03/01/23 05:50 Magnesium 1.8 mg/dL (1.6-2.3) 03/01/23 05:50 03/01/23 05:50 03/01/23 05:50 Assessment and Plan Assessment: 1. Acute kidney injury on top of chronic kidney disease versus progression of underlying chronic kidney disease. Patient was hypotensive. He is currently oliguric. Started hemodialysis 03/01/2023 via temporary femoral dialysis catheter. Etiology of CK D is biopsy proven diabetic kidney disease and severe interstitial fibrosis. 2. Anion gap metabolic acidosis secondary to advanced renal failure and lactic acidosis, status post bicarb drip and improved with dialysis. 3. Status post cardiac arrest, PEA, downtime about 5 minutes 4. Mild rhabdomyolysis 5. CK D mineral bone disorder Plan: Continue with normal saline Hemodialysis in a.m. 1 L fluid bolus now Repeat labs in a.m. Thank you for the consultation. We will continue to follow the patient with you during his hospitalization.
--- NOTE | 2023-03-01 13:05 | US ---
EXAMINATION TYPE: US kidneys/renal and bladder DATE OF EXAM: 03/01/2023 COMPARISON: US 01/21/2021 CLINICAL INDICATION: Male, 62 years old with history of rosangela; ROSANGELA EXAM MEASUREMENTS: Right Kidney: 11.3 x 4.1 x 5.0 cm Left Kidney: 11.6 x 5.3 x 5.4 cm Right Kidney: wnl Left Kidney: wnl Bladder: Pt has cath in place Incidental finding gallstones, sludge, and thickened wall with pericholecystic fluid Incidental finding scant amount of ascites There is no evidence for hydronephrosis at this point in time. No nephrolithiasis is seen. No victoria s are identified. Cortical medullary differentiation is identified. Gallbladder demonstrates stones w ith bilious sludge and thickened wall and trace pericholecystic fluid. The urinary bladder is poorly visualized with Lay catheter in place. Scant amount of ascites identified. IMPRESSION: 1. No hydronephrosis or nephrolithiasis. 2. Gallbladder wall thickening with pericholecystic fluid and gallstones/biliary sludge. Findings are suspicious for possible acute cholecystitis. Clinical correlation is recommended. Consider further e valuation with dedicated right upper quadrant ultrasound and/or nuclear medicine HIDA scan as clinica lly indicated. 3. Trace ascites.
[2023-03-01] MEDS: NOREPINEPHRINE 4 MG in SODIUM CHLORIDE 0.9% 250 ML IV SCH (13:06)
[2023-03-01 17:29] LABS: Hepatitis B Surface AB- Quant 3.5 mIU/mL
[2023-03-01 17:39] LABS: % Iron Saturation 17.39 (15.00-50.00)
[2023-03-01 17:56] LABS: Glucose,Whole Blood 172 mg/dL (70-110)
[2023-03-01] MEDS ORDERED: LEVOFLOXACIN 750MG-D5W PMX 750 MG in DEXTROSE/WATER 1 150ML.BAG IVPB ONE (18:30)
--- NOTE | 2023-03-01 22:20 | P.CONS ---
History of Present Illness - Reason for Consult Consult date: 03/01/23 - History of Present Illness Patient is a 62-year-old male with a past medical history significant for diabetes mellitus hypertension renal insufficiency patient was brought into the ER yesterday morning after the patient was found to be on the floor by his father. The patient was complaining of feeling weak the day before the patient was brought to the hospital and apparently the patient did have some cough for which his father brought him DayQuil and NyQuil he took a dose and went to bed patient was very weak and ended up falling to the ground did not hit his head or loss of consciousness with this injury and the patient was brought into the ER on presentation to the hospital patient did have low-grade fever 100.7 degrees following right patient was tachycardic hypotensive patient ended up getting in tubated and admitted to ICU patient did have a white count of 11.4 did have elevated BUN and creatinine urine has been negative RSV influenza and COVID testing was negative, patient did have a chest x-ray patchy left lower lobe consolidation concerning for pneumonia patient was started on Rocephin and Zithromax infectious was consulted for further management of antibiotic therapy most information has been obtained from review of the chart talking to nursing staff the patient is currently breathing on the vent and unable to provide any history Past Medical History Past Medical History: Blood Disorder, Diabetes Mellitus, Hypertension, Renal Disease, Skin Disorder Additional Past Medical History / Comment(s): diabetic ulcers jose feet, iron infusion 3 weeks ago. IRON DEFICIENCY ANEMIA. History of Any Multi-Drug Resistant Organisms: None Reported Past Surgical History: Tonsillectomy Additional Past Surgical History / Comment(s): kidney biopsy Past Anesthesia/Blood Transfusion Reactions: No Reported Reaction Past Psychological History: No Psychological Hx Reported Smoking Status: Never smoker Past Alcohol Use History: Rare Past Drug Use History: None Reported - Past Family History Mother Family Medical History: Congestive Heart Failure (CHF), Coronary Artery Disease (CAD), Diabetes Mellitus Father Family Medical History: Cancer, Diabetes Mellitus Medications and Allergies Home Medications Medication Instructions Recorded Confirmed Type Insulin Aspart [NovoLOG Flexpen] 7 units SQ AC-BID 03/08/18 02/28/23 History allopurinoL [Zyloprim] 100 mg PO DAILY 03/08/18 02/28/23 History calcitrioL [Calcitriol] 0.25 mcg PO MOTUWETHFR 03/08/18 02/28/23 History Ergocalciferol (Vitamin D2) 1,250 mcg PO Q14D 02/28/23 02/28/23 History [Drisdol (50,000 Iu)] Sildenafil Citrate 50 mg PO DAILY PRN 02/28/23 02/28/23 History Simvastatin 10 mg PO DAILY 02/28/23 02/28/23 History carvediloL [Coreg] 6.25 mg PO BID 02/28/23 02/28/23 History Allergies Allergy/AdvReac Type Severity Reaction Status Date / Time No Known Allergies Allergy Verified 02/28/23 16:15 Physical Exam Vitals: Vital Signs Temp Pulse Pulse Resp BP BP Pulse Ox 03/01/23 07:23 03/01/23 07:15 97 11 L 103/67 99 03/01/23 07:00 97 9 L 103/67 99 03/01/23 06:45 98 99 03/01/23 06:30 96 22 99 03/01/23 06:15 92 99 03/01/23 06:00 94 22 99 03/01/23 05:45 98 98 03/01/23 05:30 87 22 98 03/01/23 05:15 88 22 97 03/01/23 05:00 90 9 L 96 03/01/23 04:45 88 20 98 03/01/23 04:30 85 22 98 03/01/23 04:20 98.3 F 91 25 H 113/75 03/01/23 04:15 86 22 103/67 98 03/01/23 04:00 98.3 F 89 22 97 03/01/23 03:55 03/01/23 03:45 115 H 22 96 03/01/23 03:30 84 17 96 03/01/23 03:15 96 22 95 03/01/23 03:00 84 22 96 03/01/23 02:45 107 H 22 95 03/01/23 02:30 107 H 22 95 03/01/23 02:15 105 H 22 95 03/01/23 02:00 112 H 22 96 03/01/23 01:45 78 22 98 03/01/23 01:30 76 22 96/63 98 03/01/23 01:15 77 22 99 03/01/23 01:00 76 22 99 03/01/23 00:45 76 22 99 03/01/23 00:30 77 22 99 03/01/23 00:15 76 22 99 03/01/23 00:05 77 22 96/63 99 03/01/23 00:01 03/01/23 00:00 98.2 F 77 22 98 02/28/23 23:45 78 22 98 02/28/23 23:30 77 22 98 02/28/23 23:15 76 22 98 02/28/23 23:00 80 20 98 02/28/23 22:45 75 22 98 02/28/23 22:30 78 22 98 02/28/23 22:15 79 22 99 02/28/23 22:00 77 22 98 02/28/23 21:45 75 22 98 02/28/23 21:30 74 22 98 02/28/23 21:15 76 22 98 02/28/23 21:00 85 22 99 02/28/23 20:45 102 H 22 98 02/28/23 20:30 84 22 111/68 99 02/28/23 20:15 80 111/68 98 02/28/23 20:13 02/28/23 20:00 98.3 F 84 22 103/65 99 02/28/23 19:50 02/28/23 19:45 81 22 103/65 100 02/28/23 19:30 81 89/59 100 02/28/23 19:15 80 89/59 100 02/28/23 19:00 89 93/59 100 02/28/23 18:45 101/68 100 02/28/23 18:30 98 22 100/64 100 02/28/23 18:18 02/28/23 18:15 02/28/23 17:42 78 16 69/33 02/28/23 16:51 89 16 97/61 97 02/28/23 16:30 98.1 F 90 18 98/61 97 02/28/23 15:28 99.1 F 02/28/23 13:20 100.7 F H 97 20 92/47 93 L 02/28/23 11:37 99.2 F 95 18 112/75 92 L FiO2 03/01/23 07:23 50 03/01/23 07:15 03/01/23 07:00 03/01/23 06:45 03/01/23 06:30 03/01/23 06:15 03/01/23 06:00 03/01/23 05:45 03/01/23 05:30 03/01/23 05:15 03/01/23 05:00 03/01/23 04:45 03/01/23 04:30 03/01/23 04:20 03/01/23 04:15 03/01/23 04:00 50 03/01/23 03:55 50 03/01/23 03:45 03/01/23 03:30 03/01/23 03:15 03/01/23 03:00 03/01/23 02:45 03/01/23 02:30 03/01/23 02:15 03/01/23 02:00 03/01/23 01:45 03/01/23 01:30 03/01/23 01:15 03/01/23 01:00 03/01/23 00:45 03/01/23 00:30 03/01/23 00:15 03/01/23 00:05 03/01/23 00:01 50 03/01/23 00:00 50 02/28/23 23:45 02/28/23 23:30 02/28/23 23:15 02/28/23 23:00 02/28/23 22:45 02/28/23 22:30 02/28/23 22:15 02/28/23 22:00 02/28/23 21:45 02/28/23 21:30 02/28/23 21:15 02/28/23 21:00 02/28/23 20:45 02/28/23 20:30 02/28/23 20:15 02/28/23 20:13 50 02/28/23 20:00 50 02/28/23 19:50 50 02/28/23 19:45 02/28/23 19:30 02/28/23 19:15 02/28/23 19:00 02/28/23 18:45 02/28/23 18:30 02/28/23 18:18 100 02/28/23 18:15 100 02/28/23 17:42 02/28/23 16:51 02/28/23 16:30 02/28/23 15:28 02/28/23 13:20 02/28/23 11:37 Intake and Output 02/28/23 03/01/23 03/01/23 22:59 06:59 14:59 Intake Total 010.093 6212.933 110 Output Total 300 525 0 Balance 200.048 9559.933 110 Intake: IV 690 1120 110 Dextrose 5% in Water 1, 300 800 100 000 ml @ 100 mls/hr IV . [id number] GALINDO with Sodium Bicarb (1 Meq/ml) 150 ml Rx#:[id number] KVO 60 10 Sodium Chloride 0.9% 1, 390 260 000 ml @ 130 mls/hr IV . [id number] GALINDO Rx#:[id number] Intake, IV Titration 74.475 112.933 Amount Norepinephrine 4 mg In 11.983 12.933 Sodium Chloride 0.9% 250 ml @ 0.03 MCG/KG/MIN 8.14 mls/hr IV .Q24H GALINDO Rx#: [id number] propofoL 1,000 mg In 62.492 100 Empty Bag 1 bag @ 15 MCG/ KG/MIN 6.409 mls/hr IV . [id number] GALINDO Rx#:[id number] Hemodialysis 500 Output: Urine 300 25 0 Hemodialysis 500 Other: Voiding Method Indwelling Catheter Indwelling Catheter Weight 71.214 kg 73.5 kg ABP, PAP, CO, CI - Last 8 Hours Arterial Blood Pressure 110/64 Arterial Blood Pressure 110/63 Arterial Blood Pressure 104/64 Arterial Blood Pressure 98/60 Arterial Blood Pressure 188/107 Arterial Blood Pressure 94/59 Arterial Blood Pressure 100/57 Arterial Blood Pressure 103/55 Arterial Blood Pressure 99/56 Arterial Blood Pressure 85/48 Arterial Blood Pressure 104/60 Arterial Blood Pressure 101/63 Arterial Blood Pressure 107/62 Arterial Blood Pressure 102/63 Arterial Blood Pressure 104/54 Arterial Blood Pressure 90/52 Arterial Blood Pressure 103/52 Arterial Blood Pressure 102/56 Arterial Blood Pressure 102/55 Arterial Blood Pressure 94/57 Arterial Blood Pressure 93/54 Arterial Blood Pressure 109/62 Results CBC & Chem 7: 03/02/23 05:36 03/02/23 05:36 Labs: Abnormal Lab Results - Last 24 Hours (Table) 02/28/23 02/28/23 02/28/23 Range/Units 11:37 13:13 13:13 WBC 11.1 H (3.8-10.6) k/uL RBC 2.89 L (4.30-5.90) m/uL Hgb 8.3 L (13.0-17.5) gm/dL Hct 26.3 L (39.0-53.0) % Plt Count 142 L (150-450) k/uL Neutrophils # 10.7 H (1.3-7.7) k/uL Neutrophils # (Manual) (1.3-7.7) k/uL Lymphocytes # 0.2 L (1.0-4.8) k/uL Lymphocytes # (Manual) (1.0-4.8) k/uL PT 12.8 H (10.0-12.5) sec INR 1.2 H (<1.2) APTT (22.0-30.0) sec ABG pH (7.35-7.45) ABG pCO2 (35-45) mmHg ABG pO2 (83-108) mmHg ABG HCO3 (21-25) mmol/L ABG Total CO2 (19-24) mmol/L ABG O2 Saturation (94-97) % Sodium (137-145) mmol/L Potassium (3.5-5.1) mmol/L Carbon Dioxide (22-30) mmol/L BUN (9-20) mg/dL Creatinine (0.66-1.25) mg/dL Glucose (74-99) mg/dL POC Glucose (mg/dL) 321 H (70-110) mg/dL Hemoglobin A1c (<=6.0) % Plasma Lactic Acid Yonathan (0.7-2.0) mmol/L Calcium (8.4-10.2) mg/dL Total Bilirubin (0.2-1.3) mg/dL Creatine Kinase (55-170) U/L Troponin I (0.000-0.034) ng/mL Albumin (3.5-5.0) g/dL Urine Protein (Negative) Urine Glucose (UA) (Negative) Urine Blood (Negative) Urine Bacteria (None) /hpf 02/28/23 02/28/23 02/28/23 Range/Units 13:13 13:13 13:13 WBC (3.8-10.6) k/uL RBC (4.30-5.90) m/uL Hgb (13.0-17.5) gm/dL Hct (39.0-53.0) % Plt Count (150-450) k/uL Neutrophils # (1.3-7.7) k/uL Neutrophils # (Manual) (1.3-7.7) k/uL Lymphocytes # (1.0-4.8) k/uL Lymphocytes # (Manual) (1.0-4.8) k/uL PT (10.0-12.5) sec INR (<1.2) APTT (22.0-30.0) sec ABG pH (7.35-7.45) ABG pCO2 (35-45) mmHg ABG pO2 (83-108) mmHg ABG HCO3 (21-25) mmol/L ABG Total CO2 (19-24) mmol/L ABG O2 Saturation (94-97) % Sodium (137-145) mmol/L Potassium 5.4 H (3.5-5.1) mmol/L Carbon Dioxide 10 L (22-30) mmol/L BUN 113 H* (9-20) mg/dL Creatinine 8.47 H* (0.66-1.25) mg/dL Glucose 324 H (74-99) mg/dL POC Glucose (mg/dL) (70-110) mg/dL Hemoglobin A1c (<=6.0) % Plasma Lactic Acid Yonathan 2.1 H* (0.7-2.0) mmol/L Calcium (8.4-10.2) mg/dL Total Bilirubin 2.0 H (0.2-1.3) mg/dL Creatine Kinase 1240 H* (55-170) U/L Troponin I (0.000-0.034) ng/mL Albumin 3.2 L (3.5-5.0) g/dL Urine Protein 2+ H (Negative) Urine Glucose (UA) 1+ H (Negative) Urine Blood Small H (Negative) Urine Bacteria Rare H (None) /hpf 02/28/23 02/28/23 02/28/23 Range/Units 13:13 17:55 18:12 WBC (3.8-10.6) k/uL RBC 2.77 L (4.30-5.90) m/uL Hgb 8.0 L (13.0-17.5) gm/dL Hct 25.0 L (39.0-53.0) % Plt Count 139 L (150-450) k/uL Neutrophils # (1.3-7.7) k/uL Neutrophils # (Manual) (1.3-7.7) k/uL Lymphocytes # (1.0-4.8) k/uL Lymphocytes # (Manual) (1.0-4.8) k/uL PT (10.0-12.5) sec INR (<1.2) APTT (22.0-30.0) sec ABG pH (7.35-7.45) ABG pCO2 (35-45) mmHg ABG pO2 (83-108) mmHg ABG HCO3 (21-25) mmol/L ABG Total CO2 (19-24) mmol/L ABG O2 Saturation (94-97) % Sodium (137-145) mmol/L Potassium (3.5-5.1) mmol/L Carbon Dioxide (22-30) mmol/L BUN (9-20) mg/dL Creatinine (0.66-1.25) mg/dL Glucose (74-99) mg/dL POC Glucose (mg/dL) 300 H (70-110) mg/dL Hemoglobin A1c (<=6.0) % Plasma Lactic Acid Yonathan (0.7-2.0) mmol/L Calcium (8.4-10.2) mg/dL Total Bilirubin (0.2-1.3) mg/dL Creatine Kinase (55-170) U/L Troponin I 0.457 H* (0.000-0.034) ng/mL Albumin (3.5-5.0) g/dL Urine Protein (Negative) Urine Glucose (UA) (Negative) Urine Blood (Negative) Urine Bacteria (None) /hpf 02/28/23 02/28/23 02/28/23 Range/Units 18:12 18:13 18:13 WBC (3.8-10.6) k/uL RBC (4.30-5.90) m/uL Hgb (13.0-17.5) gm/dL Hct (39.0-53.0) % Plt Count (150-450) k/uL Neutrophils # (1.3-7.7) k/uL Neutrophils # (Manual) 8.40 H (1.3-7.7) k/uL Lymphocytes # (1.0-4.8) k/uL Lymphocytes # (Manual) (1.0-4.8) k/uL PT (10.0-12.5) sec INR (<1.2) APTT (22.0-30.0) sec ABG pH (7.35-7.45) ABG pCO2 (35-45) mmHg ABG pO2 (83-108) mmHg ABG HCO3 (21-25) mmol/L ABG Total CO2 (19-24) mmol/L ABG O2 Saturation (94-97) % Sodium (137-145) mmol/L Potassium (3.5-5.1) mmol/L Carbon Dioxide 15 L (22-30) mmol/L BUN 105 H* (9-20) mg/dL Creatinine 7.32 H* (0.66-1.25) mg/dL Glucose 275 H (74-99) mg/dL POC Glucose (mg/dL) (70-110) mg/dL Hemoglobin A1c (<=6.0) % Plasma Lactic Acid Yonathan (0.7-2.0) mmol/L Calcium (8.4-10.2) mg/dL Total Bilirubin (0.2-1.3) mg/dL Creatine Kinase (55-170) U/L Troponin I 0.388 H* (0.000-0.034) ng/mL Albumin (3.5-5.0) g/dL Urine Protein (Negative) Urine Glucose (UA) (Negative) Urine Blood (Negative) Urine Bacteria (None) /hpf 02/28/23 02/28/23 02/28/23 Range/Units 18:30 18:30 18:30 WBC (3.8-10.6) k/uL RBC 2.48 L (4.30-5.90) m/uL Hgb 7.1 L (13.0-17.5) gm/dL Hct 22.7 L (39.0-53.0) % Plt Count 120 L (150-450) k/uL Neutrophils # (1.3-7.7) k/uL Neutrophils # (Manual) (1.3-7.7) k/uL Lymphocytes # (1.0-4.8) k/uL Lymphocytes # (Manual) 0.23 L (1.0-4.8) k/uL PT (10.0-12.5) sec INR (<1.2) APTT 30.3 H (22.0-30.0) sec ABG pH (7.35-7.45) ABG pCO2 (35-45) mmHg ABG pO2 (83-108) mmHg ABG HCO3 (21-25) mmol/L ABG Total CO2 (19-24) mmol/L ABG O2 Saturation (94-97) % Sodium (137-145) mmol/L Potassium (3.5-5.1) mmol/L Carbon Dioxide (22-30) mmol/L BUN (9-20) mg/dL Creatinine (0.66-1.25) mg/dL Glucose (74-99) mg/dL POC Glucose (mg/dL) (70-110) mg/dL Hemoglobin A1c (<=6.0) % Plasma Lactic Acid Yonathan 4.0 H* (0.7-2.0) mmol/L Calcium (8.4-10.2) mg/dL Total Bilirubin (0.2-1.3) mg/dL Creatine Kinase (55-170) U/L Troponin I (0.000-0.034) ng/mL Albumin (3.5-5.0) g/dL Urine Protein (Negative) Urine Glucose (UA) (Negative) Urine Blood (Negative) Urine Bacteria (None) /hpf 02/28/23 02/28/23 02/28/23 Range/Units 18:30 18:30 19:45 WBC (3.8-10.6) k/uL RBC (4.30-5.90) m/uL Hgb (13.0-17.5) gm/dL Hct (39.0-53.0) % Plt Count (150-450) k/uL Neutrophils # (1.3-7.7) k/uL Neutrophils # (Manual) (1.3-7.7) k/uL Lymphocytes # (1.0-4.8) k/uL Lymphocytes # (Manual) (1.0-4.8) k/uL PT (10.0-12.5) sec INR (<1.2) APTT (22.0-30.0) sec ABG pH (7.35-7.45) ABG pCO2 27 L (35-45) mmHg ABG pO2 >400 H (83-108) mmHg ABG HCO3 17 L (21-25) mmol/L ABG Total CO2 18 L (19-24) mmol/L ABG O2 Saturation 100.0 H (94-97) % Sodium (137-145) mmol/L Potassium (3.5-5.1) mmol/L Carbon Dioxide 15 L (22-30) mmol/L BUN 107 H* (9-20) mg/dL Creatinine 7.82 H* (0.66-1.25) mg/dL Glucose 282 H (74-99) mg/dL POC Glucose (mg/dL) (70-110) mg/dL Hemoglobin A1c (<=6.0) % Plasma Lactic Acid Yonathan (0.7-2.0) mmol/L Calcium (8.4-10.2) mg/dL Total Bilirubin (0.2-1.3) mg/dL Creatine Kinase (55-170) U/L Troponin I 0.422 H* (0.000-0.034) ng/mL Albumin (3.5-5.0) g/dL Urine Protein (Negative) Urine Glucose (UA) (Negative) Urine Blood (Negative) Urine Bacteria (None) /hpf 02/28/23 02/28/23 03/01/23 Range/Units 21:02 23:42 05:40 WBC (3.8-10.6) k/uL RBC (4.30-5.90) m/uL Hgb (13.0-17.5) gm/dL Hct (39.0-53.0) % Plt Count (150-450) k/uL Neutrophils # (1.3-7.7) k/uL Neutrophils # (Manual) (1.3-7.7) k/uL Lymphocytes # (1.0-4.8) k/uL Lymphocytes # (Manual) (1.0-4.8) k/uL PT (10.0-12.5) sec INR (<1.2) APTT (22.0-30.0) sec ABG pH 7.56 H* (7.35-7.45) ABG pCO2 28 L (35-45) mmHg ABG pO2 (83-108) mmHg ABG HCO3 (21-25) mmol/L ABG Total CO2 26 H (19-24) mmol/L ABG O2 Saturation 98.1 H (94-97) % Sodium (137-145) mmol/L Potassium (3.5-5.1) mmol/L Carbon Dioxide (22-30) mmol/L BUN (9-20) mg/dL Creatinine (0.66-1.25) mg/dL Glucose (74-99) mg/dL POC Glucose (mg/dL) 336 H 371 H (70-110) mg/dL Hemoglobin A1c (<=6.0) % Plasma Lactic Acid Yonathan (0.7-2.0) mmol/L Calcium (8.4-10.2) mg/dL Total Bilirubin (0.2-1.3) mg/dL Creatine Kinase (55-170) U/L Troponin I (0.000-0.034) ng/mL Albumin (3.5-5.0) g/dL Urine Protein (Negative) Urine Glucose (UA) (Negative) Urine Blood (Negative) Urine Bacteria (None) /hpf 03/01/23 03/01/23 03/01/23 Range/Units 05:50 05:50 05:50 WBC 11.4 H (3.8-10.6) k/uL RBC 2.65 L (4.30-5.90) m/uL Hgb 7.7 L (13.0-17.5) gm/dL Hct 22.9 L (39.0-53.0) % Plt Count 146 L (150-450) k/uL Neutrophils # (1.3-7.7) k/uL Neutrophils # (Manual) (1.3-7.7) k/uL Lymphocytes # (1.0-4.8) k/uL Lymphocytes # (Manual) (1.0-4.8) k/uL PT (10.0-12.5) sec INR (<1.2) APTT (22.0-30.0) sec ABG pH (7.35-7.45) ABG pCO2 (35-45) mmHg ABG pO2 (83-108) mmHg ABG HCO3 (21-25) mmol/L ABG Total CO2 (19-24) mmol/L ABG O2 Saturation (94-97) % Sodium 136 L (137-145) mmol/L Potassium 3.4 L (3.5-5.1) mmol/L Carbon Dioxide (22-30) mmol/L BUN 62 H (9-20) mg/dL Creatinine 4.55 H (0.66-1.25) mg/dL Glucose 171 H (74-99) mg/dL POC Glucose (mg/dL) (70-110) mg/dL Hemoglobin A1c 8.2 H (<=6.0) % Plasma Lactic Acid Yonathan (0.7-2.0) mmol/L Calcium 7.6 L (8.4-10.2) mg/dL Total Bilirubin (0.2-1.3) mg/dL Creatine Kinase (55-170) U/L Troponin I (0.000-0.034) ng/mL Albumin (3.5-5.0) g/dL Urine Protein (Negative) Urine Glucose (UA) (Negative) Urine Blood (Negative) Urine Bacteria (None) /hpf 03/01/23 03/01/23 03/01/23 Range/Units 05:50 05:55 06:15 WBC (3.8-10.6) k/uL RBC (4.30-5.90) m/uL Hgb (13.0-17.5) gm/dL Hct (39.0-53.0) % Plt Count (150-450) k/uL Neutrophils # (1.3-7.7) k/uL Neutrophils # (Manual) (1.3-7.7) k/uL Lymphocytes # (1.0-4.8) k/uL Lymphocytes # (Manual) (1.0-4.8) k/uL PT (10.0-12.5) sec INR (<1.2) APTT (22.0-30.0) sec ABG pH (7.35-7.45) ABG pCO2 (35-45) mmHg ABG pO2 (83-108) mmHg ABG HCO3 (21-25) mmol/L ABG Total CO2 (19-24) mmol/L ABG O2 Saturation (94-97) % Sodium (137-145) mmol/L Potassium (3.5-5.1) mmol/L Carbon Dioxide (22-30) mmol/L BUN (9-20) mg/dL Creatinine (0.66-1.25) mg/dL Glucose (74-99) mg/dL POC Glucose (mg/dL) 188 H (70-110) mg/dL Hemoglobin A1c (<=6.0) % Plasma Lactic Acid Yonathan (0.7-2.0) mmol/L Calcium (8.4-10.2) mg/dL Total Bilirubin (0.2-1.3) mg/dL Creatine Kinase 1059 H* (55-170) U/L Troponin I 0.447 H* (0.000-0.034) ng/mL Albumin (3.5-5.0) g/dL Urine Protein (Negative) Urine Glucose (UA) (Negative) Urine Blood (Negative) Urine Bacteria (None) /hpf Assessment and Plan Plan: 1patient presented to hospital with sepsis in this patient with a fever tachycardia hypotension source is likely left lower lobe pneumonia in this patient with weakness lethargy and decreased level of responsiveness and the question of community-acquired versus aspiration pneumonia 2-we will try to obtain a sputum for Gram stain culture 3-check a CRP and a procalcitonin 4-discontinue Rocephin and Zithromax 5-start the patient on Zosyn while waiting for the work-up to be completed We will follow on clinical condition and cultures to further adjust medication if needed Thank you for this consultation we will follow the patient along with you Dictation was produced using [employer] dictation software. please excuse any grammatical, word or spelling errors. Time with Patient: Greater than 30
[2023-03-02 00:16] LABS: Glucose,Whole Blood 240 mg/dL (70-110)
[2023-03-02] MEDS: NOREPINEPHRINE 4 MG in SODIUM CHLORIDE 0.9% 250 ML IV SCH ×2 (00:24→12:19)
[2023-03-02] MEDS: INSULIN ASPART (NovoLOG) 100 UNIT/ML VIAL SQ SCH ×4 (00:55→17:35)
[2023-03-02] MEDS: SODIUM CHLORIDE 0.9% 1,000 ML IV SCH ×2 (05:07→19:55)
[2023-03-02 05:36] LABS: ABG Base Excess -1.3 mmol/L; ABG HCO3 21 mmol/L (21-25); ABG Oxygen Saturation 98.3 % (94-97); ABG PCO2 25 mmHg (35-45); ABG PH 7.53 (7.35-7.45); ABG PO2 97 mmHg (83-108); ABG TCO2 22 mmol/L (19-24)
[2023-03-02 05:38] LABS: Allen Test Performed? No
[2023-03-02 05:44] LABS: HCT 25.1 % (39.0-53.0); HGB 8.2 gm/dL (13.0-17.5); MCH 28.6 pg (25.0-35.0); MCHC 32.6 g/dL (31.0-37.0); MCV 87.7 fL (80.0-100.0); Mean Platelet Volume 9.8; Platelet Count 139 k/uL (150-450); RBC 2.87 m/uL (4.30-5.90); RDW 14.7 % (11.5-15.5); WBC 12.1 k/uL (3.8-10.6)
[2023-03-02 05:58] LABS: African American GFR (CKD) 13 (>60 ml/min/1.73 sqM); Anion Gap 14 mmol/L; Blood Urea Nitrogen 73 mg/dL (9-20); Calcium 7.1 mg/dL (8.4-10.2); Carbon Dioxide 18 mmol/L (22-30); Chloride 105 mmol/L (98-107); Glucose 190 mg/dL (74-99); Non-African American GFR(CKD) 11 (>60 ml/min/1.73 sqM); Potassium 3.6 mmol/L (3.5-5.1); Sodium 137 mmol/L (137-145)
--- NOTE | 2023-03-02 07:35 | XR ---
EXAMINATION TYPE: XR chest 1V portable DATE OF EXAM: 03/02/2023 5:34 AM COMPARISON: Chest radiographs from 03/01/2023 TECHNIQUE: XR chest 1V portable Portable AP radiograph of the chest. CLINICAL INDICATION:Male, 62 years old with history of Tube placement; FINDINGS: Lungs/Pleura: Right lung is clear. No pneumothorax. Blunting of the left costophrenic angle. Patchy a irspace opacities appear similar in the left mid and lower lung. Pulmonary vascularity: Unremarkable. Heart/mediastinum: Cardiomediastinal silhouette is enlarged and stable. Musculoskeletal: No acute osseous pathology. Other findings: None Lines/Tubes: Stable endotracheal and enteric tubes. Stable left subclavian approach central venous catheter. IMPRESSION: 1. No significant change in patchy airspace opacities within the left mid and lower lung most consis tent with pneumonia. 2. Small left pleural effusion. 3. Stable support lines and tubes.
[2023-03-02] MEDS: HEPARIN SODIUM,PORCINE 5,000 UNIT/ML 1 ML VIAL SQ SCH ×2 (09:06→20:02)
[2023-03-02] MEDS: allopurinoL 100 MG TAB PO SCH (09:06)
[2023-03-02] MEDS: CHLORHEXIDINE GLUCONATE 15 ML CUP MUCOUS MEM SCH ×2 (09:06→20:02)
[2023-03-02] MEDS: PANTOPRAZOLE 40 MG/10 ML VIAL IVP SCH (09:06)
[2023-03-02] MEDS: PIPERACILLIN-TAZOBACTAM 3.375 GM in SODIUM CHLORIDE 0.9% 100 ML IVPB SCH ×2 (09:07→20:03)
[2023-03-02] MEDS ORDERED: POTASSIUM BICARBONATE/CIT AC 20 MEQ TABLET.EFF PO ONE (10:03)
--- NOTE | 2023-03-02 10:35 | P.PN ---
Subjective Progress Note Date: 03/02/23 Principal diagnosis: Cardiopulmonary arrest. I am seeing this patient in new consultation today 03/01/2023 in the intensive care unit, after the patient had a witnessed PEA cardiac arrest while on the Observation unit. Patient is a 62-year-old white male with past medical history significant for diabetes mellitus, diabetic foot ulcers, hypertension, hyperlipidemia, iron deficiency anemia, chronic kidney disease. Patient is currently sedated and intubated on the mechanical ventilator. He was admitted yesterday morning, after being found on the floor by his father. Apparently, the patient denied hitting his head or losing consciousness. Patient does have diabetes mellitus, and his blood sugars had been running high at home. Chest x- ray on admission showed a left lower lobe infiltrate consistent with community acquired pneumonia. Patient did have a fever with a T-max of 100.7F. Apparently, after being admitted to the observation unt, the patient was noted to have low blood pressure. The patient was given 1 L normal saline bolus and 5 amps sodium bicarb. Soon after, the patient had a cardiac arrest. Presenting rhythm was PEA. Patient had a limited downtime of less than 5 minutes. He received 1 mg of epinephrine. Rapid sequence intubation was performed. The patient was then transferred to the intensive care unit. Dr. Lacy did come in and place a left subclavian central line catheter and a right wrist arterial line. Patient was also noted to be in acute renal failure. He did have a right femoral hemodialysis catheter placed earlier, and is currently undergoing emergent hemodialysis. Patient is currently in the intensive care unit, intubated to the mechanical ventilator. He is sedated on propofol which is currently infusing at 40 mcg/kg/m. He is synchronous with the mechanical ventilator. Postintubation ABG shows a pO2 greater than 400, pCO2 27, pH of 7.43, this was done on ventilator settings of assist control, respiratory rate 22, tidal volume 500, FiO2 100%, and PEEP of 5. Patient's FiO2 was dropped to 50%. Peak pressures 27. Post intubation chest x-ray shows the endotracheal tube 4 cm above the anika. Oral gastric tube could be advanced 5 cm. There is a persistent left lower lobe infiltrate. Most recent CBC from yesterday evening showed a WBC count of 7.8, hemoglobin 7.1, hematocrit 22.7, platelets 120. No obvious acute blood loss was noted. Most recent available BMP shows sodium 140, potassium 4.6, chloride 107, serum bicarb 15, BUN 107, creatinine 7.82, glucose 282. Acetone negative. LFTs not elevated. CPK 1240. Currently, 3 A sodium bicarb in D5W is infusing at 100 ML's per hour. There is also normal saline infusing at 130 ML's per hour. Patient is currently anuric. Troponins elevated at 0.457, 0.388, and 0.422 respectively. ECG shows normal sinus rhythm without any obvious acute ischemic changes. Urinalysis not concerning for UTI. Lactic acid level was elevated at 4 is down 1.6. Negative for influenza, RSV, COVID- 19. Patient was started on empiric antibiotics in the form of ceftriaxone and azithromycin. Currently afebrile. Patient's condition is currently critical, moderate in the intensive care unit. Progress note dated 03/02/2023. 62-year-old male who was seen in consultation yesterday, status post cardiopulmonary arrest. The patient had a witnessed PEA arrest. He had a very short resuscitation time of about 5 minutes. The patient was transferred to the intensive care unit. I came into the hospital, on Sunday evening, and placed a right radial art line, and a left subclavian triple-lumen catheter. Remains in the intensive care unit, on the ventilator. Currently, the patient is on the volume assist control, rate 22, tidal volume 500, FiO2 50% PEEP of 5. Blood gases show pO2 of 97, pCO2 25, and pH is 7.53. The patient is receiving saline at 100 mL an hour, propofol at 40 mcg/kg/m, norepinephrine at 7.7 mcg/m, and vital high protein at 35 mL an hour, with a goal of 54 mL an hour. White count 12.1, hemoglobin 8.2, hematocrit 25.1, and platelet count 139,000. Sodium is 137, potassium 3.6, chlorides 105, CO2 18, anion gap 14, BUN 73, and creatinine 5.21. Calcium is 7.1. Today, is likely a dialysis day. Culture information is pending or negative. Chest x-ray continues to show a consolidative process, in the left midlung left lower lobe area. Objective - Vital Signs Vital signs: Vital Signs Temp 99.9 F H 03/02/23 08:00 Pulse 105 H 03/02/23 10:00 Resp 22 03/02/23 10:00 BP 110/65 03/02/23 07:00 Pulse Ox 96 03/02/23 10:00 FiO2 50 03/02/23 08:23 Intake & Output 03/01/23 03/02/23 03/02/23 18:59 06:59 18:59 Intake Total 2896.515 2321.382 553.105 Output Total 25 30 15 Balance 2871.515 2291.382 538.105 Weight 77.4 kg 77.8 kg 77.8 kg Intake: IV 2359 1400 300 Dextrose 5% in Water 1, 100 000 ml @ 100 mls/hr IV . [id number] [facility] with Sodium Bicarb (1 Meq/ml) 150 ml Rx#:[id number] KVO 10 Piperacillin-Tazobactam 3 100 100 .375 gm In Sodium Chloride 0.9% 100 ml @ 25 mls/hr IVPB Q12HR [facility] Rx #:[id number] Sodium Chloride 0.9% 1, 1100 1300 300 000 ml @ 100 mls/hr IV . Q10H [facility] Rx#:[id number] Sodium Chloride 0.9% 1, 999 000 ml @ 999 mls/hr IV . Q1H1M [facility] Rx#:[id number] cefTRIAXone 2 gm In 50 Sodium Chloride 0.9% 50 ml @ 100 mls/hr IVPB Q24HR [facility] Rx#:[id number] Intake, IV Titration 517.515 521.382 103.105 Amount Norepinephrine 4 mg In 334.641 258.430 103.105 Sodium Chloride 0.9% 250 ml @ 0.03 MCG/KG/MIN 8.14 mls/hr IV .Q24H [facility] Rx#: [id number] propofoL 1,000 mg In 182.874 262.952 Empty Bag 1 bag @ 15 MCG/ KG/MIN 6.409 mls/hr IV . [id number] [facility] Rx#:[id number] Tube Feeding 20 310 70 Other 90 80 Output: Urine 25 30 15 Other: Voiding Method Indwelling Catheter Indwelling Catheter Indwelling Catheter ABP, PAP, CO, CI - Last Documented Arterial Blood Pressure 95/43 - Exam No acute distress, sedated with propofol, with an orally placed endotracheal tube and NG tube. HEENT examination is grossly unremarkable. Neck supple. Full range of motion. No adenopathy thyromegaly or neck vein distention. Cardiovascular examination reveals regular rhythm rate. S1-S2 normal. No S3 or S4. No discernible murmur noted. Heart sounds are distant. Heart rate 100 bpm. Lungs reveal bilateral rhonchi. No wheezes or crackles. Breath sounds are equal. Saturations are 96%. Abdomen soft bowel sounds are heard. No masses or tenderness. Extremities are intact. No cyanosis clubbing or edema. Skin is without rash or lesion. Neurologic examination cannot be evaluated at this time. - Labs CBC & Chem 7: 03/02/23 05:36 03/02/23 05:36 Labs: Abnormal Lab Results - Last 24 Hours (Table) 02/28/23 03/01/23 03/01/23 Range/Units 15:14 05:50 11:53 WBC (3.8-10.6) k/uL RBC (4.30-5.90) m/uL Hgb (13.0-17.5) gm/dL Hct (39.0-53.0) % Plt Count (150-450) k/uL ABG pH (7.35-7.45) ABG pCO2 (35-45) mmHg ABG O2 Saturation (94-97) % Carbon Dioxide (22-30) mmol/L BUN (9-20) mg/dL Creatinine (0.66-1.25) mg/dL Glucose (74-99) mg/dL POC Glucose (mg/dL) 143 H (70-110) mg/dL Calcium (8.4-10.2) mg/dL Iron 20 L (65-175) UG/DL TIBC 115 L (228-460) UG/DL Transferrin 82.4 L (204.0-354.0) mg/dL Ferritin 5282.0 H (22.0-322.0) ng/mL Urine Legionella Ag Positive A (Negative) 03/01/23 03/02/23 03/02/23 Range/Units 17:54 00:13 05:29 WBC (3.8-10.6) k/uL RBC (4.30-5.90) m/uL Hgb (13.0-17.5) gm/dL Hct (39.0-53.0) % Plt Count (150-450) k/uL ABG pH 7.53 H (7.35-7.45) ABG pCO2 25 L (35-45) mmHg ABG O2 Saturation 98.3 H (94-97) % Carbon Dioxide (22-30) mmol/L BUN (9-20) mg/dL Creatinine (0.66-1.25) mg/dL Glucose (74-99) mg/dL POC Glucose (mg/dL) 172 H 240 H (70-110) mg/dL Calcium (8.4-10.2) mg/dL Iron (65-175) UG/DL TIBC (228-460) UG/DL Transferrin (204.0-354.0) mg/dL Ferritin (22.0-322.0) ng/mL Urine Legionella Ag (Negative) 03/02/23 03/02/23 Range/Units 05:36 05:36 WBC 12.1 H (3.8-10.6) k/uL RBC 2.87 L (4.30-5.90) m/uL Hgb 8.2 L (13.0-17.5) gm/dL Hct 25.1 L (39.0-53.0) % Plt Count 139 L (150-450) k/uL ABG pH (7.35-7.45) ABG pCO2 (35-45) mmHg ABG O2 Saturation (94-97) % Carbon Dioxide 18 L (22-30) mmol/L BUN 73 H (9-20) mg/dL Creatinine 5.21 H (0.66-1.25) mg/dL Glucose 190 H (74-99) mg/dL POC Glucose (mg/dL) (70-110) mg/dL Calcium 7.1 L (8.4-10.2) mg/dL Iron (65-175) UG/DL TIBC (228-460) UG/DL Transferrin (204.0-354.0) mg/dL Ferritin (22.0-322.0) ng/mL Urine Legionella Ag (Negative) Microbiology - Last 24 Hours (Table) 02/28/23 20:10 Gram Stain - Preliminary Sputum 02/28/23 15:14 Blood Culture - Preliminary Blood 02/28/23 15:14 Blood Culture - Preliminary Blood Assessment and Plan Assessment: Witnessed PEA cardiac arrest with a limited down time of less than 5 minutes. Acute hypoxemic respiratory failure, requiring intubation and mechanical ventilation. Left lower lobe community-acquired pneumonia and sepsis. Metabolic anion gap acidosis, secondary to lactic acidosis and sepsis. Hypotension, improved with fluid resuscitation. Acute on chronic kidney disease, currently receiving hemodialysis. Acute rhabdomyolysis, with mildly elevated CPK. Elevated troponins, likely related to supply/demand mismatch. Anemia of chronic disease, hemoglobin lower than baseline. Diabetes mellitus, insulin-dependent. Hyperlipidemia. Plan: Plan dated 03/02/2023. The patient may not be ready for extubation, but we will do a daily interruption of sedation, and assess the patient for a spontaneous breathing trial. The pa robert remains on norepinephrine at about 8 mcg/m. The patient continues on propofol for sedation at 40 mcg/kg/m. The patient is receiving tube feedings. Labs, x-rays, and medications are reviewed. Blood gases show a primary respiratory alkalosis. The patient continues on Zosyn, and Levaquin, as per infectious diseases. We will continue to follow make recommendations along the way. Prognosis is guarded. The patient looks much older than his stated age. Time with Patient: Greater than 30
--- NOTE | 2023-03-02 10:45 | P.PN ---
Subjective Patient is seen for follow-up for acute kidney injury on top of chronic kidney disease. He was admitted with weakness and severe acidosis. Patient developed cardiac arrest in the ER and has been intubated. He received one treatment of hemodialysis on 03/01/2023. Patient remains oliguric with urine output at 02 5 mL an hour. Levo fed is slightly lower than yesterday. FiO2 is stable at 50%. Objective - Vital Signs Vital signs: Vital Signs Temp 99.9 F H 03/02/23 08:00 Pulse 105 H 03/02/23 10:00 Resp 22 03/02/23 10:00 BP 110/65 03/02/23 07:00 Pulse Ox 96 03/02/23 10:00 FiO2 50 03/02/23 08:23 Intake & Output 03/01/23 03/02/23 03/02/23 18:59 06:59 18:59 Intake Total 2896.515 2321.382 553.105 Output Total 25 30 15 Balance 2871.515 2291.382 538.105 Weight 77.4 kg 77.8 kg 77.8 kg Intake: IV 2359 1400 300 Dextrose 5% in Water 1, 100 000 ml @ 100 mls/hr IV . [id number] [facility] with Sodium Bicarb (1 Meq/ml) 150 ml Rx#:[id number] KVO 10 Piperacillin-Tazobactam 3 100 100 .375 gm In Sodium Chloride 0.9% 100 ml @ 25 mls/hr IVPB Q12HR [facility] Rx #:[id number] Sodium Chloride 0.9% 1, 1100 1300 300 000 ml @ 100 mls/hr IV . Q10H [facility] Rx#:[id number] Sodium Chloride 0.9% 1, 999 000 ml @ 999 mls/hr IV . Q1H1M [facility] Rx#:[id number] cefTRIAXone 2 gm In 50 Sodium Chloride 0.9% 50 ml @ 100 mls/hr IVPB Q24HR [facility] Rx#:[id number] Intake, IV Titration 517.515 521.382 103.105 Amount Norepinephrine 4 mg In 334.641 258.430 103.105 Sodium Chloride 0.9% 250 ml @ 0.03 MCG/KG/MIN 8.14 mls/hr IV .Q24H [facility] Rx#: [id number] propofoL 1,000 mg In 182.874 262.952 Empty Bag 1 bag @ 15 MCG/ KG/MIN 6.409 mls/hr IV . [id number] [facility]PLACED BY [facility] Rx#:[id number] Tube Feeding 20 310 70 Other 90 80 Output: Urine 25 30 15 Other: Voiding Method Indwelling Catheter Indwelling Catheter Indwelling Catheter ABP, PAP, CO, CI - Last Documented Arterial Blood Pressure 95/43 - Exam Patient is sedated and on the vent Examination of the heart S1 and S2 Examination of the lungs bilateral breath sounds are heard Abdomen is soft nontender Examination of lower extremities shows no significant edema - Labs CBC & Chem 7: 03/02/23 05:36 03/02/23 05:36 Labs: Abnormal Lab Results - Last 24 Hours (Table) 02/28/23 03/01/23 03/01/23 Range/Units 15:14 05:50 11:53 WBC (3.8-10.6) k/uL RBC (4.30-5.90) m/uL Hgb (13.0-17.5) gm/dL Hct (39.0-53.0) % Plt Count (150-450) k/uL ABG pH (7.35-7.45) ABG pCO2 (35-45) mmHg ABG O2 Saturation (94-97) % Carbon Dioxide (22-30) mmol/L BUN (9-20) mg/dL Creatinine (0.66-1.25) mg/dL Glucose (74-99) mg/dL POC Glucose (mg/dL) 143 H (70-110) mg/dL Calcium (8.4-10.2) mg/dL Iron 20 L (65-175) UG/DL TIBC 115 L (228-460) UG/DL Transferrin 82.4 L (204.0-354.0) mg/dL Ferritin 5282.0 H (22.0-322.0) ng/mL Urine Legionella Ag Positive A (Negative) 03/01/23 03/02/23 03/02/23 Range/Units 17:54 00:13 05:29 WBC (3.8-10.6) k/uL RBC (4.30-5.90) m/uL Hgb (13.0-17.5) gm/dL Hct (39.0-53.0) % Plt Count (150-450) k/uL ABG pH 7.53 H (7.35-7.45) ABG pCO2 25 L (35-45) mmHg ABG O2 Saturation 98.3 H (94-97) % Carbon Dioxide (22-30) mmol/L BUN (9-20) mg/dL Creatinine (0.66-1.25) mg/dL Glucose (74-99) mg/dL POC Glucose (mg/dL) 172 H 240 H (70-110) mg/dL Calcium (8.4-10.2) mg/dL Iron (65-175) UG/DL TIBC (228-460) UG/DL Transferrin (204.0-354.0) mg/dL Ferritin (22.0-322.0) ng/mL Urine Legionella Ag (Negative) 03/02/23 03/02/23 Range/Units 05:36 05:36 WBC 12.1 H (3.8-10.6) k/uL RBC 2.87 L (4.30-5.90) m/uL Hgb 8.2 L (13.0-17.5) gm/dL Hct 25.1 L (39.0-53.0) % Plt Count 139 L (150-450) k/uL ABG pH (7.35-7.45) ABG pCO2 (35-45) mmHg ABG O2 Saturation (94-97) % Carbon Dioxide 18 L (22-30) mmol/L BUN 73 H (9-20) mg/dL Creatinine 5.21 H (0.66-1.25) mg/dL Glucose 190 H (74-99) mg/dL POC Glucose (mg/dL) (70-110) mg/dL Calcium 7.1 L (8.4-10.2) mg/dL Iron (65-175) UG/DL TIBC (228-460) UG/DL Transferrin (204.0-354.0) mg/dL Ferritin (22.0-322.0) ng/mL Urine Legionella Ag (Negative) Microbiology - Last 24 Hours (Table) 02/28/23 20:10 Gram Stain - Preliminary Sputum 02/28/23 15:14 Blood Culture - Preliminary Blood 02/28/23 15:14 Blood Culture - Preliminary Blood Assessment and Plan Assessment: 1. Acute kidney injury on top of chronic kidney disease versus progression of underlying chronic kidney disease. Patient was hypotensive. He is currently oliguric. Started hemodialysis 03/01/2023 via temporary femoral dialysis catheter. Etiology of CK D is biopsy proven diabetic kidney disease and severe interstitial fibrosis. 2. Anion gap metabolic acidosis secondary to advanced renal failure and lactic acidosis, status post bicarb drip and improved with dialysis. 3. Status post cardiac arrest, PEA, downtime about 5 minutes 4. Mild rhabdomyolysis 5. CK D mineral bone disorder Plan: Continue IV fluids Hemodialysis today and again in a.m. Repeat labs in a.m. Replace potassium
--- NOTE | 2023-03-02 10:46 | CONS ---
CONSULTATION HISTORY OF PRESENT ILLNESS: Franky is a 62-year-old gentleman, who was admitted to hospital following a cardiac arrest in the emergency room. He has a history of hypertension, dyslipidemia, diabetes, renal insufficiency, who apparently was brought to the hospital by his father having been found somewhat sleepy and lethargic. The patient has been dealing with cold-like symptoms for the last 1 week. He had cough, runny nose, , nausea, vomiting, and poor appetite. He went to bed normally and then subsequently developed all these symptoms. The patient went to the washroom and then as he was walking back, went down to the floor. It is unclear if he lost consciousness or not. His father brought him to the ER from where he was admitted to the hospital. While in the ER, he was found to be in renal failure with a BUN of 130 and creatinine of 8.4. Bicarb was low. Lactic acid was elevated and potassium was 5.4. His initial EKG revealed sinus rhythm with nonspecific ST-T wave changes. His troponin was in the harden zone at 0.4, 0.3 and 0.4, and he had new onset acute on chronic renal failure. While in the ER, he developed profound hypotension and subsequently had cardiac arrest with pulseless electrical activity. He was resuscitated, intubated and admitted to the ICU. He underwent an echocardiogram that revealed cardiomyopathy with severe LV systolic dysfunction, following which I have been consulted. At the time of my evaluation, the patient is intubated on vent. I obtained information from the nurse and reviewing the chart. His echocardiogram shows left atrial enlargement, mild to moderate mitral regurgitation, mild to moderate tricuspid regurgitation, and severe LV systolic dysfunction with diffuse global hypokinesis. At the moment, the patient is hypotensive and is on pressors. Remains in sinus rhythm. PAST MEDICAL HISTORY: Significant for hypertension, diabetes. MEDICATIONS: At home included, 1. Sildenafil. 2. Simvastatin. 3. Insulin. 4. Coreg. 5. Zyloprim. ALLERGIES: There are no known drug allergies. FAMILY HISTORY: I am unable to obtain from the patient who is intubated and on vent. SOCIAL HISTORY: I am unable to obtain from the patient who is intubated and on vent. REVIEW OF SYSTEMS: I am unable to obtain from the patient who is intubated and on vent. PHYSICAL EXAMINATION: VITAL SIGNS: Heart rate is 93 beats per minute, blood pressure is 90/40, respiratory rate is 22. The patient is mechanically ventilated with an O2 saturation of 95% with an FiO2 of 50%. CHEST: Reveals diminished air entry bilaterally. HEART: Reveals first and second heart sounds. No gallop. No murmur. ABDOMEN: Soft. EXTREMITIES: Exam of extremities reveals mild bilateral leg edema. LABORATORIES: Show potassium of 3.6, BUN is 73, creatinine is 5.2, hemoglobin is 8.2 with a platelet count of 139. ASSESSMENT: 1. Status post cardiac arrest. 2. Nonischemic cardiomyopathy with severe LV systolic dysfunction. 3. Hypotension. 4. End-stage renal disease, on hemodialysis. PLAN: Continue the pressors. Once the patient is off the pressors, I will start him on beta blockers. His prognosis is guarded. I will further optimize medications based on how he evolves. LUCINDA / SERVANDO: [id number] /
[2023-03-02 11:20] LABS: Glucose,Whole Blood 240 mg/dL (70-110)
[2023-03-02] MEDS: MIDODRINE 5 MG TAB PO SCH ×2 (12:05→17:35)
--- NOTE | 2023-03-02 14:45 | P.PN ---
Subjective Progress Note Date: 03/02/23 62 year old M with PMH of CKD, hypertension, gout, diabetes mellitus presents to the ED after being found down. Patient is lethargic and sleepy and majority of history is provided by his father. Patient is single, lives alone, takes care of his ADLs and IADL's and normally very active. Father states he has been dealing with a cold over the past week. Symptoms include cough, rhinorrhea, malaise, diarrhea, nausea and vomiting, poor appetite. Last time seen normal was yesterday at 6:30PM when he went to bed. Found down this morning by his father, apparently tried to use the washroom last night, unable to make it to bed, laid on the floor all night. EMS was subsequently called. In the ED, he underwent extensive workup. Tmax 100.7F. HR in the 90s. BP 92/47. 92% on RA. CBC showed leukocytosis of 11.1, hemoglobin of 8.3 and platelet count 142. INR 1.2 CMP showed potassium of 5.4, bicarb 10, BUN 113, creatinine 8.47, glucose 324, total bilirubin 2. Lactic acid 2.1. CPK 1240. Troponin 0.457. Acetone negative. Influenza, RSV, COVID-19 negative. Chest x-ray reviewed by me showed large left sided PNA. EKG showed sinus rhythm with no ST elevation. CODE BLUE was called yesterday. Patient was found to be in PEA arrest. He was given multiple amps of sodium bicarb and epinephrine. Patient was intubated. ROSC was achieved and he was transferred to the ICU. Dr. Lacy, Dr. Juarez and Dr. Simon was contacted. Emergent hemodialysis access was obtained and patient was started on dialysis. 03/01 Patient was seen and examined. Intubated in the ICU. Currently on propofol at 40 mcg/kg/min. Levophed running at 0.07 mcg/kg/hr. Currently on Rocephin and Azithromycin for antibiotics. CBC WBC count 11.4 and Hg 7.7, Plt 146. ABG pH 7.56, pCO2 28. BMP Na 136, K 3.4, BUN 62, Cr 4.55, glucose 171, Ca 7.7. Troponin 0.388, 0.422, 0.447. CXR shows left sided opacities, ET tube in place, NG tube and left central venous catheter. 03/02 Patient was seen and examined. Intubated in the ICU. Currently on propofol at 40 mcg/kg/min. Levophed running at 0.11 mcg/kg/hr. Legionella Ag +, started on Levaquin and started on Zosyn by ID, Rocephin/Azithromcyin discontinued. Echocardiogram shows EF 20-25% with moderate TR/MR thus Cardiology is consulted. CBC WBC count 12.1 and Hg 8.2, Plt 139. ABG pH 7.53, pCO2 25. BMP bicarb 18, BUN 73, Cr 5.21, glucose 190, Ca 7.1. A1c 8.2. Iron 20, Ferritin 5282. Hepatitis negative. Plans for HD today and tomorrow. General: Intubated Derm: warm, dry Head: atraumatic, normocephalic, symmetric Eyes: EOMI, no lid lag, anicteric sclera Mouth: no lip lesion, dry membranes moist Cardiovascular: S1S2 tachycardic, no murmur Lungs: Coarse BS bilateral, no rhonchi, no rales , no accessory muscle use Abdominal: soft, nontender to palpation, + BS Ext: no gross muscle atrophy, no edema, no contractures Neuro: Unable to perform Psych: Intubated PEA arrest Acute hypoxic respiratory failure Sepsis related to community acquired pneumonia Acute kidney injury on chronic kidney disease Troponin elevation HFrEF Acute metabolic encephalopathy Rhabdomyolysis Normocytic anemia Hypokalemia Chronic conditions: Hypertension, gout, diabetes mellitus Resolved: Metabolic acidosis, Hyperkalemia Based on my assessment of this patient, this patient meets a high complexity level of care. Patient has an acute diagnosis of sepsis related to community acquired PNA that poses a threat to life or bodily function. Also has ROSANGELA on CKD with severe acidosis and hyperkalemia likely requiring dialysis. Complicated with troponin elevation and rhabomyolysis. PEA arrest: Status post ROSC 02/28. Acute hypoxic respiratory failure: Ventilator support. Pulm toileting. Sepsis related to Legionaries pneumonia: Hold Coreg. BCx. Sputum Cx. Legionella Ag +. Zosyn 3.375 g IV TID started 03/02. NS at 100 cc/hr. Telemetry monitoring. Titrate Levophed to maintain MAP > 65. Pulmonology and ID on board. Acute kidney injury on chronic kidney disease: Multifactorial. Sepsis. Dehydration due to N/V, poor appetite and diarrhea. Underwent emergent HD on 02/28. Plans for HD today and tomorrow. Nephrology on board. Troponin elevation: Likely due to demand ischemia. Trop flat. Echocardiogram as above. Cardiology consult. HFrEF: EF 20-25%. Cardiology consulted. Acute metabolic encephalopathy: Likely related to above. Fall precautions. PT and OT consult when able to participate. Rhabdomyolysis: Hold simvastatin. IV hydration as above. Normocytic anemia: Likely AOCD due to CKD. Transfuse if Hg < 7. Hypokalemia: Replace via protocol. Father is the decision maker. FULL CODE. Heparin 5000 units SQ BID for DVT prophylaxis. Protonix 40 mg IV QD for GI prophylaxis. I have reviewed the following risk consultant notes: Pulm, Cardiology, Nephro note. I have reviewed the results of the following tests: As above. I have ordered the following tests: Pending: BCx. Sputum Cx. Procal. CBC and BMP ordered for tomorrow bc. I have discussed the care of this patient with the following independent his golden: I have independently interpreted the following test below: I have discussed the management of this patient with the following physician: Discussed with Dr. Hollingsworth as above. This patient meets a high level of care for the following reasons: Patient requires IV vasopressors which requires intensive monitoring of hemodynamics. Patient requires IV anesthetics to be maintained on the ventilator which requires intensive monitoring of hemodynamics and respiratory toxicity. Objective - Vital Signs Vital signs: Vital Signs Temp 98.0 F 03/02/23 12:00 Pulse 84 03/02/23 14:00 Resp 22 03/02/23 14:00 BP 105/62 03/02/23 12:15 Pulse Ox 97 03/02/23 14:00 FiO2 50 03/02/23 12:00 Intake & Output 03/01/23 03/02/23 03/02/23 18:59 06:59 18:59 Intake Total 2896.515 2321.382 1501.128 Output Total 25 30 30 Balance 2871.515 2291.382 1471.128 Weight 77.4 kg 77.8 kg 77.8 kg Intake: IV 2359 1400 800 Dextrose 5% in Water 1, 100 000 ml @ 100 mls/hr IV . [id number] [facility] with Sodium Bicarb (1 Meq/ml) 150 ml Rx#:[id number] KVO 10 Piperacillin-Tazobactam 3 100 100 100 .375 gm In Sodium Chloride 0.9% 100 ml @ 25 mls/hr IVPB Q12HR [facility] Rx #:[id number] Sodium Chloride 0.9% 1, 1100 1300 700 000 ml @ 100 mls/hr IV . Q10H [facility] Rx#:[id number] Sodium Chloride 0.9% 1, 999 000 ml @ 999 mls/hr IV . Q1H1M [facility] Rx#:[id number] cefTRIAXone 2 gm In 50 Sodium Chloride 0.9% 50 ml @ 100 mls/hr IVPB Q24HR [facility] Rx#:[id number] Intake, IV Titration 517.515 521.382 206.128 Amount Norepinephrine 4 mg In 334.641 258.430 115.261 Sodium Chloride 0.9% 250 ml @ 0.03 MCG/KG/MIN 8.14 mls/hr IV .Q24H [facility] Rx#: [id number] propofoL 1,000 mg In 182.874 262.952 90.867 Empty Bag 1 bag @ 15 MCG/ KG/MIN 6.409 mls/hr IV . [id number] [facility] Rx#:[id number] Oral 80 Tube Feeding 20 310 305 Other 90 110 Output: Urine 25 30 30 Other: Voiding Method Indwelling Catheter Indwelling Catheter Indwelling Catheter ABP, PAP, CO, CI - Last Documented Arterial Blood Pressure 117/58 - Labs CBC & Chem 7: 03/02/23 05:36 03/02/23 05:36 Labs: Abnormal Lab Results - Last 24 Hours (Table) 02/28/23 03/01/23 03/01/23 Range/Units 15:14 05:50 17:54 WBC (3.8-10.6) k/uL RBC (4.30-5.90) m/uL Hgb (13.0-17.5) gm/dL Hct (39.0-53.0) % Plt Count (150-450) k/uL ABG pH (7.35-7.45) ABG pCO2 (35-45) mmHg ABG O2 Saturation (94-97) % Carbon Dioxide (22-30) mmol/L BUN (9-20) mg/dL Creatinine (0.66-1.25) mg/dL Glucose (74-99) mg/dL POC Glucose (mg/dL) 172 H (70-110) mg/dL Calcium (8.4-10.2) mg/dL Iron 20 L (65-175) UG/DL TIBC 115 L (228-460) UG/DL Transferrin 82.4 L (204.0-354.0) mg/dL Ferritin 5282.0 H (22.0-322.0) ng/mL Urine Legionella Ag Positive A (Negative) 03/02/23 03/02/23 03/02/23 Range/Units 00:13 05:29 05:36 WBC 12.1 H (3.8-10.6) k/uL RBC 2.87 L (4.30-5.90) m/uL Hgb 8.2 L (13.0-17.5) gm/dL Hct 25.1 L (39.0-53.0) % Plt Count 139 L (150-450) k/uL ABG pH 7.53 H (7.35-7.45) ABG pCO2 25 L (35-45) mmHg ABG O2 Saturation 98.3 H (94-97) % Carbon Dioxide (22-30) mmol/L BUN (9-20) mg/dL Creatinine (0.66-1.25) mg/dL Glucose (74-99) mg/dL POC Glucose (mg/dL) 240 H (70-110) mg/dL Calcium (8.4-10.2) mg/dL Iron (65-175) UG/DL TIBC (228-460) UG/DL Transferrin (204.0-354.0) mg/dL Ferritin (22.0-322.0) ng/mL Urine Legionella Ag (Negative) 03/02/23 03/02/23 Range/Units 05:36 11:19 WBC (3.8-10.6) k/uL RBC (4.30-5.90) m/uL Hgb (13.0-17.5) gm/dL Hct (39.0-53.0) % Plt Count (150-450) k/uL ABG pH (7.35-7.45) ABG pCO2 (35-45) mmHg ABG O2 Saturation (94-97) % Carbon Dioxide 18 L (22-30) mmol/L BUN 73 H (9-20) mg/dL Creatinine 5.21 H (0.66-1.25) mg/dL Glucose 190 H (74-99) mg/dL POC Glucose (mg/dL) 240 H (70-110) mg/dL Calcium 7.1 L (8.4-10.2) mg/dL Iron (65-175) UG/DL TIBC (228-460) UG/DL Transferrin (204.0-354.0) mg/dL Ferritin (22.0-322.0) ng/mL Urine Legionella Ag (Negative) Microbiology - Last 24 Hours (Table) 02/28/23 20:10 Gram Stain - Preliminary Sputum 02/28/23 15:14 Blood Culture - Preliminary Blood 02/28/23 15:14 Blood Culture - Preliminary Blood
--- NOTE | 2023-03-02 15:21 | P.PN ---
Subjective Progress Note Date: 03/02/23 Principal diagnosis: Sepsis and Legionella pneumonia Patient is a 62-year-old male with a past medical history significant for diabetes mellitus hypertension renal insufficiency patient was brought into the ER concerning for weakness and did have some respiratory symptoms patient did have a fever and worsening respiratory status requiring intubation and admission to the ICU the patient urine for digital antigen came back positive evening of 03/01/2023. On today's evaluation that is 03/02/2023 patient did have a low-grade fever of 99.9F this morning patient remains to be intubated on the vent with an FiO2 of 50%and significant purulent secretions through the ET vomiting diarrhea or any other changes reported by the nursing staff Patient did have iron of 12.1, creatinine 5.21, blood and sputum cultures currently pending Objective - Vital Signs Vital signs: Vital Signs Temp 99.9 F H 03/02/23 08:00 Pulse 144 H 03/02/23 11:30 Resp 22 03/02/23 11:30 BP 110/65 03/02/23 07:00 Pulse Ox 96 03/02/23 11:30 FiO2 50 03/02/23 11:36 Intake & Output 03/01/23 03/02/23 03/02/23 18:59 06:59 18:59 Intake Total 2896.515 2321.382 738.105 Output Total 25 30 20 Balance 2871.515 2291.382 718.105 Weight 77.4 kg 77.8 kg 77.8 kg Intake: IV 2359 1400 400 Dextrose 5% in Water 1, 100 000 ml @ 100 mls/hr IV . [id number] [facility] with Sodium Bicarb (1 Meq/ml) 150 ml Rx#:[id number] KVO 10 Piperacillin-Tazobactam 3 100 100 .375 gm In Sodium Chloride 0.9% 100 ml @ 25 mls/hr IVPB Q12HR [facility] Rx #:[id number] Sodium Chloride 0.9% 1, 1100 1300 400 000 ml @ 100 mls/hr IV . Q10H [facility] Rx#:[id number] Sodium Chloride 0.9% 1, 999 000 ml @ 999 mls/hr IV . Q1H1M [facility] Rx#:[id number] cefTRIAXone 2 gm In 50 Sodium Chloride 0.9% 50 ml @ 100 mls/hr IVPB Q24HR [facility] Rx#:[id number] Intake, IV Titration 517.515 521.382 103.105 Amount Norepinephrine 4 mg In 334.641 258.430 103.105 Sodium Chloride 0.9% 250 ml @ 0.03 MCG/KG/MIN 8.14 mls/hr IV .Q24H [facility] Rx#: [id number] propofoL 1,000 mg In 182.874 262.952 Empty Bag 1 bag @ 15 MCG/ KG/MIN 6.409 mls/hr IV . [id number] [facility] Rx#:[id number] Tube Feeding 20 310 155 Other 90 80 Output: Urine 25 30 20 Other: Voiding Method Indwelling Catheter Indwelling Catheter Indwelling Catheter ABP, PAP, CO, CI - Last Documented Arterial Blood Pressure 97/47 - Exam GENERAL DESCRIPTION: Middle-aged male intubated on the vent RESPIRATORY SYSTEM: Unlabored breathing , decreased breath sound at the base HEART: S1 S2 regular rate and rhythm , ABDOMEN: Soft , no tenderness EXTREMITIES: No edema feet - Labs CBC & Chem 7: 03/02/23 05:36 03/02/23 05:36 Labs: Abnormal Lab Results - Last 24 Hours (Table) 02/28/23 03/01/23 03/01/23 Range/Units 15:14 05:50 11:53 WBC (3.8-10.6) k/uL RBC (4.30-5.90) m/uL Hgb (13.0-17.5) gm/dL Hct (39.0-53.0) % Plt Count (150-450) k/uL ABG pH (7.35-7.45) ABG pCO2 (35-45) mmHg ABG O2 Saturation (94-97) % Carbon Dioxide (22-30) mmol/L BUN (9-20) mg/dL Creatinine (0.66-1.25) mg/dL Glucose (74-99) mg/dL POC Glucose (mg/dL) 143 H (70-110) mg/dL Calcium (8.4-10.2) mg/dL Iron 20 L (65-175) UG/DL TIBC 115 L (228-460) UG/DL Transferrin 82.4 L (204.0-354.0) mg/dL Ferritin 5282.0 H (22.0-322.0) ng/mL Urine Legionella Ag Positive A (Negative) 03/01/23 03/02/23 03/02/23 Range/Units 17:54 00:13 05:29 WBC (3.8-10.6) k/uL RBC (4.30-5.90) m/uL Hgb (13.0-17.5) gm/dL Hct (39.0-53.0) % Plt Count (150-450) k/uL ABG pH 7.53 H (7.35-7.45) ABG pCO2 25 L (35-45) mmHg ABG O2 Saturation 98.3 H (94-97) % Carbon Dioxide (22-30) mmol/L BUN (9-20) mg/dL Creatinine (0.66-1.25) mg/dL Glucose (74-99) mg/dL POC Glucose (mg/dL) 172 H 240 H (70-110) mg/dL Calcium (8.4-10.2) mg/dL Iron (65-175) UG/DL TIBC (228-460) UG/DL Transferrin (204.0-354.0) mg/dL Ferritin (22.0-322.0) ng/mL Urine Legionella Ag (Negative) 03/02/23 03/02/23 03/02/23 Range/Units 05:36 05:36 11:19 WBC 12.1 H (3.8-10.6) k/uL RBC 2.87 L (4.30-5.90) m/uL Hgb 8.2 L (13.0-17.5) gm/dL Hct 25.1 L (39.0-53.0) % Plt Count 139 L (150-450) k/uL ABG pH (7.35-7.45) ABG pCO2 (35-45) mmHg ABG O2 Saturation (94-97) % Carbon Dioxide 18 L (22-30) mmol/L BUN 73 H (9-20) mg/dL Creatinine 5.21 H (0.66-1.25) mg/dL Glucose 190 H (74-99) mg/dL POC Glucose (mg/dL) 240 H (70-110) mg/dL Calcium 7.1 L (8.4-10.2) mg/dL Iron (65-175) UG/DL TIBC (228-460) UG/DL Transferrin (204.0-354.0) mg/dL Ferritin (22.0-322.0) ng/mL Urine Legionella Ag (Negative) Microbiology - Last 24 Hours (Table) 02/28/23 20:10 Gram Stain - Preliminary Sputum 02/28/23 15:14 Blood Culture - Preliminary Blood 02/28/23 15:14 Blood Culture - Preliminary Blood Assessment and Plan (1) Legionella pneumonia Current Visit: Yes Status: Acute Code(s): A48.1 - LEGIONNAIRES' DISEASE SNOMED Code(s): 336576893 (2) Sepsis Current Visit: Yes Status: Acute Code(s): A41.9 - SEPSIS, UNSPECIFIED ORGANISM SNOMED Code(s): 07157604 Plan: 1patient presented to hospital with sepsis in this patient with a fever t achycardia hypotension source is likely left lower lobe pneumonia in this patient with weakness lethargy and decreased level of responsiveness and the question of community-acquired versus aspiration pneumonia 2-urine for Legionella antigen is positive, sputum cultures are currently pending 3-Patient to continue with the Levaquin Zosyn while waiting for the cultures to be finalize Plan of care discussed with the nursing staff and admitting team Dictation was produced using [employer] dictation software. please excuse any grammatical, word or spelling errors. Time with Patient: Less than 30
[2023-03-02 17:26] LABS: Glucose,Whole Blood 207 mg/dL (70-110)
[2023-03-02 17:26] LABS: Glucose,Whole Blood 216 mg/dL (70-110)
[2023-03-03 00:12] LABS: Glucose,Whole Blood 227 mg/dL (70-110)
[2023-03-03] MEDS: SODIUM CHLORIDE 0.9% 1,000 ML IV SCH ×3 (00:16→08:15)
[2023-03-03] MEDS: INSULIN ASPART (NovoLOG) 100 UNIT/ML VIAL SQ SCH ×4 (00:38→17:51)
[2023-03-03] MEDS: NOREPINEPHRINE 4 MG in SODIUM CHLORIDE 0.9% 250 ML IV SCH ×2 (01:35→12:36)
[2023-03-03 04:56] LABS: HCT 25.3 % (39.0-53.0); HGB 8.3 gm/dL (13.0-17.5); MCH 28.6 pg (25.0-35.0); MCHC 32.6 g/dL (31.0-37.0); MCV 87.7 fL (80.0-100.0); Mean Platelet Volume 9.7; Platelet Count 109 k/uL (150-450); RBC 2.89 m/uL (4.30-5.90); RDW 14.7 % (11.5-15.5)
[2023-03-03 05:14] LABS: African American GFR (CKD) 22 (>60 ml/min/1.73 sqM); Anion Gap 12 mmol/L; Blood Urea Nitrogen 56 mg/dL (9-20); Calcium 7.3 mg/dL (8.4-10.2); Carbon Dioxide 19 mmol/L (22-30); Chloride 103 mmol/L (98-107); Glucose 244 mg/dL (74-99); Non-African American GFR(CKD) 19 (>60 ml/min/1.73 sqM); Potassium 3.2 mmol/L (3.5-5.1); Sodium 134 mmol/L (137-145)
[2023-03-03 06:19] LABS: Glucose,Whole Blood 250 mg/dL (70-110)
[2023-03-03] MEDS: MIDODRINE 5 MG TAB PO SCH ×3 (06:39→17:51)
--- NOTE | 2023-03-03 06:44 | XR ---
EXAMINATION TYPE: XR chest 1V portable DATE OF EXAM: 03/03/2023 5:18 AM COMPARISON: Chest radiographs from 03/02/2023 TECHNIQUE: XR chest 1V portable Portable AP radiograph of the chest. CLINICAL INDICATION:Male, 62 years old with history of Tube placement; FINDINGS: Lungs/Pleura: Right lung is clear. No pneumothorax. Blunting of the left costophrenic angle. Patchy a irspace opacities appear similar in the left mid and lower lung. Pulmonary vascularity: Mild pulmonary vascular congestion. Heart/mediastinum: Cardiomediastinal silhouette is enlarged and stable. Musculoskeletal: No acute osseous pathology. Other findings: None Lines/Tubes: Stable endotracheal and enteric tubes. Stable left subclavian approach central venous catheter. IMPRESSION: 1. No significant change in patchy airspace opacities within the left mid and lower lung most consis tent with pneumonia. 2. Small left pleural effusion with mild pulmonary vascular congestion. 3. Stable support lines and tubes.
[2023-03-03 06:48] LABS: ABG Base Excess 0.1 mmol/L; ABG HCO3 24 mmol/L (21-25); ABG Oxygen Saturation 94.3 % (94-97); ABG PCO2 34 mmHg (35-45); ABG PH 7.45 (7.35-7.45); ABG PO2 68 mmHg (83-108); ABG TCO2 25 mmol/L (19-24); Allen Test Performed? Yes
[2023-03-03] MEDS: POTASSIUM CHLORIDE 20 MEQ in WATER FOR INJECTION 1 100ML.BAG IVPB SCH ×3 (07:04→12:35)
[2023-03-03] MEDS: allopurinoL 100 MG TAB PO SCH (08:14)
[2023-03-03] MEDS: PANTOPRAZOLE 40 MG/10 ML VIAL IVP SCH (08:14)
[2023-03-03] MEDS: HEPARIN SODIUM,PORCINE 5,000 UNIT/ML 1 ML VIAL SQ SCH ×2 (08:14→20:08)
[2023-03-03] MEDS: PIPERACILLIN-TAZOBACTAM 3.375 GM in SODIUM CHLORIDE 0.9% 100 ML IVPB SCH ×2 (08:15→20:09)
[2023-03-03] MEDS: CHLORHEXIDINE GLUCONATE 15 ML CUP MUCOUS MEM SCH ×2 (08:15→20:08)
--- NOTE | 2023-03-03 09:28 | P.PN ---
Subjective Progress Note Date: 03/03/23 Principal diagnosis: Cardiopulmonary arrest. I am seeing this patient in new consultation today 03/01/2023 in the intensive care unit, after the patient had a witnessed PEA cardiac arrest while on the Observation unit. Patient is a 62-year-old white male with past medical history significant for diabetes mellitus, diabetic foot ulcers, hypertension, hyperlipidemia, iron deficiency anemia, chronic kidney disease. Patient is currently sedated and intubated on the mechanical ventilator. He was admitted yesterday morning, after being found on the floor by his father. Apparently, the patient denied hitting his head or losing consciousness. Patient does have diabetes mellitus, and his blood sugars had been running high at home. Chest x- ray on admission showed a left lower lobe infiltrate consistent with community acquired pneumonia. Patient did have a fever with a T-max of 100.7F. Apparently, after being admitted to the observation unt, the patient was noted to have low blood pressure. The patient was given 1 L normal saline bolus and 5 amps sodium bicarb. Soon after, the patient had a cardiac arrest. Presenting rhythm was PEA. Patient had a limited downtime of less than 5 minutes. He received 1 mg of epinephrine. Rapid sequence intubation was performed. The patient was then transferred to the intensive care unit. Dr. Lacy did come in and place a left subclavian central line catheter and a right wrist arterial line. Patient was also noted to be in acute renal failure. He did have a right femoral hemodialysis catheter placed earlier, and is currently undergoing emergent hemodialysis. Patient is currently in the intensive care unit, intubated to the mechanical ventilator. He is sedated on propofol which is currently infusing at 40 mcg/kg/m. He is synchronous with the mechanical ventilator. Postintubation ABG shows a pO2 greater than 400, pCO2 27, pH of 7.43, this was done on ventilator settings of assist control, respiratory rate 22, tidal volume 500, FiO2 100%, and PEEP of 5. Patient's FiO2 was dropped to 50%. Peak pressures 27. Post intubation chest x-ray shows the endotracheal tube 4 cm above the anika. Oral gastric tube could be advanced 5 cm. There is a persistent left lower lobe infiltrate. Most recent CBC from yesterday evening showed a WBC count of 7.8, hemoglobin 7.1, hematocrit 22.7, platelets 120. No obvious acute blood loss was noted. Most recent available BMP shows sodium 140, potassium 4.6, chloride 107, serum bicarb 15, BUN 107, creatinine 7.82, glucose 282. Acetone negative. LFTs not elevated. CPK 1240. Currently, 3 A sodium bicarb in D5W is infusing at 100 ML's per hour. There is also normal saline infusing at 130 ML's per hour. Patient is currently anuric. Troponins elevated at 0.457, 0.388, and 0.422 respectively. ECG shows normal sinus rhythm without any obvious acute ischemic changes. Urinalysis not concerning for UTI. Lactic acid level was elevated at 4 is down 1.6. Negative for influenza, RSV, COVID- 19. Patient was started on empiric antibiotics in the form of ceftriaxone and azithromycin. Currently afebrile. Patient's condition is currently critical, moderate in the intensive care unit. Progress note dated 03/02/2023. 62-year-old male who was seen in consultation yesterday, status post cardiopulmonary arrest. The patient had a witnessed PEA arrest. He had a very short resuscitation time of about 5 minutes. The patient was transferred to the intensive care unit. I came into the hospital, on Sunday evening, and placed a right radial art line, and a left subclavian triple-lumen catheter. Remains in the intensive care unit, on the ventilator. Currently, the patient is on the volume assist control, rate 22, tidal volume 500, FiO2 50% PEEP of 5. Blood gases show pO2 of 97, pCO2 25, and pH is 7.53. The patient is receiving saline at 100 mL an hour, propofol at 40 mcg/kg/m, norepinephrine at 7.7 mcg/m, and vital high protein at 35 mL an hour, with a goal of 54 mL an hour. White count 12.1, hemoglobin 8.2, hematocrit 25.1, and platelet count 139,000. Sodium is 137, potassium 3.6, chlorides 105, CO2 18, anion gap 14, BUN 73, and creatinine 5.21. Calcium is 7.1. Today, is likely a dialysis day. Culture information is pending or negative. Chest x-ray continues to show a consolidative process, in the left midlung left lower lobe area. Progress note dated 03/03/2023. 62-year-old male who is seen today in room 264. The patient remains on [facility] ventilator, having sustained a cardiopulmonary arrest. Ventilator settings include the volume assist control, rate 22, tidal volume 500, FiO2 50%, and PEEP of 5. Arterial blood gases show pO2 38, pCO2 34, and the pH is 7.45. The patient remains on norepinephrine at 5 mcg/m, propofol at 30 mcg/kg/m, and saline at 100 mL an hour. The patient's also getting vital high protein at 69 mL an hour, which is goal. White count is 11, hemoglobin 8.3, hematocrit 25.3, and platelet count 109,000. Sodium 134, potassium 3.2, chlorides 103, CO2 19, BUN 56, and creatinine 3.35. Microbiologic sampling as as far negative. Chest x-ray shows extensive infiltrate, and left midlung and left lower lobe area. The patient continues on Zosyn and Levaquin. Yesterday, we attempted a daily interruption of sedation, and the patient did not do well. We will attempt that again today. Objective - Vital Signs Vital signs: Vital Signs Temp 97.6 F 03/03/23 08:00 Pulse 80 03/03/23 08:00 Resp 22 03/03/23 08:00 BP 93/70 03/02/23 23:45 Pulse Ox 94 L 03/03/23 08:00 FiO2 50 03/03/23 08:02 Intake & Output 03/02/23 03/03/23 03/03/23 18:59 06:59 18:59 Intake Total 3154.267 2118.861 444.062 Output Total 540 35 5 Balance 2614.267 2083.861 439.062 Weight 77.8 kg 79.9 kg Intake: IV 1300 1200 225 Piperacillin-Tazobactam 3 100 100 25 .375 gm In Sodium Chloride 0.9% 100 ml @ 25 mls/hr IVPB Q12HR [facility] Rx #:[id number] Potassium Chloride 20 meq 100 In Water For Injection 1 100ml.bag @ 50 mls/hr IVPB Q2H [facility] Rx#: [id number] Sodium Chloride 0.9% 1, 1200 1100 100 000 ml @ 100 mls/hr IV . Q10H [facility] Rx#:[id number] Intake, IV Titration 499.267 160.861 51.062 Amount Norepinephrine 4 mg In 308.400 60.861 Sodium Chloride 0.9% 250 ml @ 0.03 MCG/KG/MIN 8.14 mls/hr IV .Q24H [facility] Rx#: [id number] propofoL 1,000 mg In 190.867 100.000 51.062 Empty Bag 1 bag @ 15 MCG/ KG/MIN 6.409 mls/hr IV . [id number] [facility] Rx#:[id number] Oral 160 Tube Feeding 555 668 138 Hemodialysis 500 Other 140 90 30 Output: Urine 40 35 5 Hemodialysis 500 Other: Voiding Method Indwelling Catheter Indwelling Catheter Indwelling Catheter ABP, PAP, CO, CI - Last Documented Arterial Blood Pressure 109/59 - Exam No acute distress, sedated with propofol, with an orally placed endotracheal tube and NG tube. HEENT examination is grossly unremarkable. Neck supple. Full range of motion. No adenopathy thyromegaly or neck vein distention. Cardiovascular examination reveals regular rhythm rate. S1-S2 normal. No S3 or S4. No discernible murmur noted. Heart sounds are distant. Heart rate 80 bpm. Lungs reveal bilateral rhonchi. No wheezes or crackles. Breath sounds are equal. Saturations are 94 %. Abdomen soft bowel sounds are heard. No masses or tenderness. Extremities are intact. No cyanosis clubbing or edema. Skin is without rash or lesion. Neurologic examination cannot be evaluated at this time. - Labs CBC & Chem 7: 03/03/23 04:45 03/03/23 04:45 Labs: Abnormal Lab Results - Last 24 Hours (Table) 03/02/23 03/02/23 03/02/23 Range/Units 11:19 17:24 17:25 WBC (3.8-10.6) k/uL RBC (4.30-5.90) m/uL Hgb (13.0-17.5) gm/dL Hct (39.0-53.0) % Plt Count (150-450) k/uL ABG pCO2 (35-45) mmHg ABG pO2 (83-108) mmHg ABG Total CO2 (19-24) mmol/L Sodium (137-145) mmol/L Potassium (3.5-5.1) mmol/L Carbon Dioxide (22-30) mmol/L BUN (9-20) mg/dL Creatinine (0.66-1.25) mg/dL Glucose (74-99) mg/dL POC Glucose (mg/dL) 240 H 216 H 207 H (70-110) mg/dL Calcium (8.4-10.2) mg/dL 03/03/23 03/03/23 03/03/23 Range/Units 00:10 00:11 04:45 WBC 11.0 H (3.8-10.6) k/uL RBC 2.89 L (4.30-5.90) m/uL Hgb 8.3 L (13.0-17.5) gm/dL Hct 25.3 L (39.0-53.0) % Plt Count 109 L (150-450) k/uL ABG pCO2 (35-45) mmHg ABG pO2 (83-108) mmHg ABG Total CO2 (19-24) mmol/L Sodium (137-145) mmol/L Potassium 3.2 L (3.5-5.1) mmol/L Carbon Dioxide (22-30) mmol/L BUN (9-20) mg/dL Creatinine (0.66-1.25) mg/dL Glucose (74-99) mg/dL POC Glucose (mg/dL) 227 H (70-110) mg/dL Calcium (8.4-10.2) mg/dL 03/03/23 03/03/23 03/03/23 Range/Units 04:45 06:18 06:47 WBC (3.8-10.6) k/uL RBC (4.30-5.90) m/uL Hgb (13.0-17.5) gm/dL Hct (39.0-53.0) % Plt Count (150-450) k/uL ABG pCO2 34 L (35-45) mmHg ABG pO2 68 L (83-108) mmHg ABG Total CO2 25 H (19-24) mmol/L Sodium 134 L (137-145) mmol/L Potassium 3.2 L (3.5-5.1) mmol/L Carbon Dioxide 19 L (22-30) mmol/L BUN 56 H (9-20) mg/dL Creatinine 3.35 H (0.66-1.25) mg/dL Glucose 244 H (74-99) mg/dL POC Glucose (mg/dL) 250 H (70-110) mg/dL Calcium 7.3 L (8.4-10.2) mg/dL Microbiology - Last 24 Hours (Table) 03/01/23 11:25 Urine Culture - Final Urine,Catheterized 02/28/23 15:14 Blood Culture - Preliminary Blood 02/28/23 15:14 Blood Culture - Preliminary Blood Assessment and Plan Assessment: Witnessed PEA cardiac arrest with a limited down time of less than 5 minutes. Acute hypoxemic respiratory failure, requiring intubation and mechanical ventilation. Left lower lobe community-acquired pneumonia and sepsis. Metabolic anion gap acidosis, secondary to lactic acidosis and sepsis. Hypotension, improved with fluid resuscitation. Acute on chronic kidney disease, currently receiving hemodialysis. Acute rhabdomyolysis, with mildly elevated CPK. Elevated troponins, likely related to supply/demand mismatch. Anemia of chronic disease, hemoglobin lower than baseline. Diabetes mellitus, insulin-dependent. Hyperlipidemia. Plan: Plan dated 03/02/2023. The patient may not be ready for extubation, but we will do a daily interruption of sedation, and assess the patient for a spontaneous breathing trial. The patient remains on norepinephrine at about 8 mcg/m. The patient continues on propofol for sedation at 40 mcg/kg/m. The patient is receiving tube feedings. Labs, x-rays, and medications are reviewed. Blood gases show a primary respiratory alkalosis. The patient continues on Zosyn, and Levaquin, as per infectious diseases. We will continue to follow make recommendations along the way. Prognosis is guarded. The patient looks much older than his stated age. Plan dated 03/03/2023. The patient is maintained on Zosyn and Levaquin. Labs, x-rays, and medications are reviewed. The patient's overall prognosis remains guarded. The patient is currently on norepinephrine, and propofol for sedation. Yesterday, he did poorly with his daily interruption of sedation. Gases have been reviewed. Labs and x-rays are reviewed. He is getting tube feedings with vital high protein at goal, which is 69 mL an hour. We will continue to follow and make recommendations along the way. The patient so far prognosis remains guarded. Time with Patient: Greater than 30
--- NOTE | 2023-03-03 10:51 | PN ---
PROGRESS NOTE SUBJECTIVE: Franky is a 62-year-old gentleman, who is admitted to hospital with cardiac arrest. He is intubated on vent. Has renal failure and is currently on hemodialysis. Remains on Levophed, antibiotics with no significant change in his mental status. He is also on midodrine. OBJECTIVE: VITAL SIGNS: On exam, heart rate is 80 beats per minute, blood pressure is 109/59, respiratory rate is 18. CHEST: Reveals diminished air entry bilaterally. HEART: Reveals first and second heart sounds. No gallop. EXTREMITIES: Exam of extremities reveals bilateral pitting edema. LABORATORIES: Show a hemoglobin of 8.3, platelet count is 109; BUN is 56, creatinine is 3.3. ASSESSMENT: 1. Status post cardiac arrest. 2. Ventilator requiring respiratory failure. 3. End-stage renal disease, on hemodialysis. PLAN: The patient will continue current supportive care, poor prognosis. MMODL / IJN: [id number] /
--- NOTE | 2023-03-03 11:00 | P.PN ---
Subjective Patient is seen for follow-up for acute kidney injury on top of chronic kidney disease. He was admitted with weakness and severe acidosis. Patient developed cardiac arrest in the ER and has been intubated. Started hemodialysis on 03/01/2023. Patient remains oliguric with urine output at 0- 5 mL an hour. Levo fed is slightly lower than yesterday. FiO2 is stable at 50%. Currently seen on hemodialysis. Objective - Vital Signs Vital signs: Vital Signs Temp 97.6 F 03/03/23 08:00 Pulse 82 03/03/23 10:15 Resp 22 03/03/23 10:15 BP 93/70 03/02/23 23:45 Pulse Ox 91 L 03/03/23 10:15 FiO2 50 03/03/23 08:02 Intake & Output 03/02/23 03/03/23 03/03/23 18:59 06:59 18:59 Intake Total 3154.267 2118.861 1010.007 Output Total 540 35 5 Balance 2614.267 2083.861 1005.007 Weight 77.8 kg 79.9 kg Intake: IV 1300 1200 475 Piperacillin-Tazobactam 3 100 100 75 .375 gm In Sodium Chloride 0.9% 100 ml @ 25 mls/hr IVPB Q12HR [facility] Rx #:[id number] Potassium Chloride 20 meq 200 In Water For Injection 1 100ml.bag @ 50 mls/hr IVPB Q2H [facility] Rx#: [id number] Sodium Chloride 0.9% 1, 1200 1100 200 000 ml @ 100 mls/hr IV . Q10H [facility] Rx#:[id number] Intake, IV Titration 499.267 160.861 229.007 Amount Norepinephrine 4 mg In 308.400 60.861 177.945 Sodium Chloride 0.9% 250 ml @ 0.03 MCG/KG/MIN 8.14 mls/hr IV .Q24H [facility] Rx#: [id number] propofoL 1,000 mg In 190.867 100.000 51.062 Empty Bag 1 bag @ 15 MCG/ KG/MIN 6.409 mls/hr IV . [id number] [facility] Rx#:[id number] Oral 160 Tube Feeding 555 668 276 Hemodialysis 500 Other 140 90 30 Output: Urine 40 35 5 Hemodialysis 500 Other: Voiding Method Indwelling Catheter Indwelling Catheter Indwelling Catheter ABP, PAP, CO, CI - Last Documented Arterial Blood Pressure 119/56 - Exam Patient is sedated and on the vent Examination of the heart S1 and S2 Examination of the lungs bilateral breath sounds are heard Abdomen is soft nontender Examination of lower extremities shows 1+ edema - Labs CBC & Chem 7: 03/03/23 04:45 03/03/23 04:45 Labs: Abnormal Lab Results - Last 24 Hours (Table) 03/02/23 03/02/23 03/02/23 Range/Units 11: 17:24 17:25 WBC (3.8-10.6) k/uL RBC (4.30-5.90) m/uL Hgb (13.0-17.5) gm/dL Hct (39.0-53.0) % Plt Count (150-450) k/uL ABG pCO2 (35-45) mmHg ABG pO2 (83-108) mmHg ABG Total CO2 (19-24) mmol/L Sodium (137-145) mmol/L Potassium (3.5-5.1) mmol/L Carbon Dioxide (22-30) mmol/L BUN (9-20) mg/dL Creatinine (0.66-1.25) mg/dL Glucose (74-99) mg/dL POC Glucose (mg/dL) 240 H 216 H 207 H (70-110) mg/dL Calcium (8.4-10.2) mg/dL 03/03/23 03/03/23 03/03/23 Range/Units 00:10 00:11 04:45 WBC 11.0 H (3.8-10.6) k/uL RBC 2.89 L (4.30-5.90) m/uL Hgb 8.3 L (13.0-17.5) gm/dL Hct 25.3 L (39.0-53.0) % Plt Count 109 L (150-450) k/uL ABG pCO2 (35-45) mmHg ABG pO2 (83-108) mmHg ABG Total CO2 (19-24) mmol/L Sodium (137-145) mmol/L Potassium 3.2 L (3.5-5.1) mmol/L Carbon Dioxide (22-30) mmol/L BUN (9-20) mg/dL Creatinine (0.66-1.25) mg/dL Glucose (74-99) mg/dL POC Glucose (mg/dL) 227 H (70-110) mg/dL Calcium (8.4-10.2) mg/dL 03/03/23 03/03/23 03/03/23 Range/Units 04:45 06:18 06:47 WBC (3.8-10.6) k/uL RBC (4.30-5.90) m/uL Hgb (13.0-17.5) gm/dL Hct (39.0-53.0) % Plt Count (150-450) k/uL ABG pCO2 34 L (35-45) mmHg ABG pO2 68 L (83-108) mmHg ABG Total CO2 25 H (19-24) mmol/L Sodium 134 L (137-145) mmol/L Potassium 3.2 L (3.5-5.1) mmol/L Carbon Dioxide 19 L (22-30) mmol/L BUN 56 H (9-20) mg/dL Creatinine 3.35 H (0.66-1.25) mg/dL Glucose 244 H (74-99) mg/dL POC Glucose (mg/dL) 250 H (70-110) mg/dL Calcium 7.3 L (8.4-10.2) mg/dL Microbiology - Last 24 Hours (Table) 02/28/23 20:10 Gram Stain - Final Sputum Sputum Culture - Final 03/01/23 11:25 Urine Culture - Final Urine,Catheterized 02/28/23 15:14 Blood Culture - Preliminary Blood 02/28/23 15:14 Blood Culture - Preliminary Blood Assessment and Plan Assessment: 1. Acute kidney injury on top of chronic kidney disease versus progression of underlying chronic kidney disease. Patient was hypotensive. He is currently oliguric. Started hemodialysis 03/01/2023 via temporary femoral dialysis catheter. Etiology of CK D is biopsy proven diabetic kidney disease and severe interstitial fibrosis. 2. Anion gap metabolic acidosis secondary to advanced renal failure and lactic acidosis, status post bicarb drip and improved with dialysis. 3. Status post cardiac arrest, PEA, downtime about 5 minutes 4. Mild rhabdomyolysis 5. CK D mineral bone disorder Plan: Decrease IV fluids We will continue with hemodialysis on a Sunday schedule. Replace potassium
--- NOTE | 2023-03-03 11:09 | P.PN ---
Subjective Progress Note Date: 03/03/23 Principal diagnosis: Sepsis and Legionella pneumonia Patient is a 62-year-old male with a past medical history significant for diabetes mellitus hypertension renal insufficiency patient was brought into the ER concerning for weakness and did have some respiratory symptoms patient did have a fever and worsening respiratory status requiring intubation and admission to the ICU the patient urine for digital antigen came back positive evening of 03/01/2023. On today's evaluation that is 03/03/2023 patient is afebrile this morning, and the patient remains to be intubated on the vent with an FiO2 of 50%and no significant purulent secretions through the ET vomiting diarrhea reported by the nursing staff, patient did get a right femoral dialysis catheter and is undergoing dialysis Patient white count is down to 11,000 creatinine is 3.35, blood and sputum cultures currently pending, urine for Legionella antigen is positive Objective - Vital Signs Vital signs: Vital Signs Temp 97.6 F 03/03/23 08:00 Pulse 80 03/03/23 08:00 Resp 22 03/03/23 08:00 BP 93/70 03/02/23 23:45 Pulse Ox 94 L 03/03/23 08:00 FiO2 50 03/03/23 08:02 Intake & Output 03/02/23 03/03/23 03/03/23 18:59 06:59 18:59 Intake Total 3154.267 2118.861 444.062 Output Total 540 35 5 Balance 2614.267 2083.861 439.062 Weight 77.8 kg 79.9 kg Intake: IV 1300 1200 225 Piperacillin-Tazobactam 3 100 100 25 .375 gm In Sodium Chloride 0.9% 100 ml @ 25 mls/hr IVPB Q12HR [facility] Rx #:[id number] Potassium Chloride 20 meq 100 In Water For Injection 1 100ml.bag @ 50 mls/hr IVPB Q2H [facility] Rx#: [id number] Sodium Chloride 0.9% 1, 1200 1100 100 000 ml @ 100 mls/hr IV . Q10H [facility] Rx#:[id number] Intake, IV Titration 499.267 160.861 51.062 Amount Norepinephrine 4 mg In 308.400 60.861 Sodium Chloride 0.9% 250 ml @ 0.03 MCG/KG/MIN 8.14 mls/hr IV .Q24H [facility] Rx#: [id number] propofoL 1,000 mg In 190.867 100.000 51.062 Empty Bag 1 bag @ 15 MCG/ KG/MIN 6.409 mls/hr IV . [id number] [facility] Rx#:[id number] Oral 160 Tube Feeding 555 668 138 Hemodialysis 500 Other 140 90 30 Output: Urine 40 35 5 Hemodialysis 500 Other: Voiding Method Indwelling Catheter Indwelling Catheter Indwelling Catheter ABP, PAP, CO, CI - Last Documented Arterial Blood Pressure 109/59 - Exam GENERAL DESCRIPTION: Middle-aged male intubated on the vent RESPIRATORY SYSTEM: Unlabored breathing , decreased breath sound at the base HEART: S1 S2 regular rate and rhythm , ABDOMEN: Soft , no tenderness EXTREMITIES: No edema feet - Labs CBC & Chem 7: 03/03/23 04:45 03/03/23 04:45 Labs: Abnormal Lab Results - Last 24 Hours (Table) 03/02/23 03/02/23 03/02/23 Range/Units 11:19 17:24 17:25 WBC (3.8-10.6) k/uL RBC (4.30-5.90) m/uL Hgb (13.0-17.5) gm/dL Hct (39.0-53.0) % Plt Count (150-450) k/uL ABG pCO2 (35-45) mmHg ABG pO2 (83-108) mmHg ABG Total CO2 (19-24) mmol/L Sodium (137-145) mmol/L Potassium (3.5-5.1) mmol/L Carbon Dioxide (22-30) mmol/L BUN (9-20) mg/dL Creatinine (0.66-1.25) mg/dL Glucose (74-99) mg/dL POC Glucose (mg/dL) 240 H 216 H 207 H (70-110) mg/dL Calcium (8.4-10.2) mg/dL 03/03/23 03/03/23 03/03/23 Range/Units 00:10 00:11 04:45 WBC 11.0 H (3.8-10.6) k/uL RBC 2.89 L (4.30-5.90) m/uL Hgb 8.3 L (13.0-17.5) gm/dL Hct 25.3 L (39.0-53.0) % Plt Count 109 L (150-450) k/uL ABG pCO2 (35-45) mmHg ABG pO2 (83-108) mmHg ABG Total CO2 (19-24) mmol/L Sodium (137-145) mmol/L Potassium 3.2 L (3.5-5.1) mmol/L Carbon Dioxide (22-30) mmol/L BUN (9-20) mg/dL Creatinine (0.66-1.25) mg/dL Glucose (74-99) mg/dL POC Glucose (mg/dL) 227 H (70-110) mg/dL Calcium (8.4-10.2) mg/dL 03/03/23 03/03/23 03/03/23 Range/Units 04:45 06:18 06:47 WBC (3.8-10.6) k/uL RBC (4.30-5.90) m/uL Hgb (13.0-17.5) gm/dL Hct (39.0-53.0) % Plt Count (150-450) k/uL ABG pCO2 34 L (35-45) mmHg ABG pO2 68 L (83-108) mmHg ABG Total CO2 25 H (19-24) mmol/L Sodium 134 L (137-145) mmol/L Potassium 3.2 L (3.5-5.1) mmol/L Carbon Dioxide 19 L (22-30) mmol/L BUN 56 H (9-20) mg/dL Creatinine 3.35 H (0.66-1.25) mg/dL Glucose 244 H (74-99) mg/dL POC Glucose (mg/dL) 250 H (70-110) mg/dL Calcium 7.3 L (8.4-10.2) mg/dL Microbiology - Last 24 Hours (Table) 02/28/23 20:10 Gram Stain - Final Sputum Sputum Culture - Final 03/01/23 11:25 Urine Culture - Final Urine,Catheterized 02/28/23 15:14 Blood Culture - Preliminary Blood 02/28/23 15:14 Blood Culture - Preliminary Blood Assessment and Plan (1) Legionella pneumonia Current Visit: Yes Status: Acute Code(s): A48.1 - LEGIONNAIRES' DISEASE SNOMED Code(s): 817203701 (2) Sepsis Current Visit: Yes Status: Acute Code(s): A41.9 - SEPSIS, UNSPECIFIED ORGANISM SNOMED Code(s): 91139474 Plan: 1patient presented to hospital with sepsis in this patient with a fever tachycardia hypotension source is likely left lower lobe pneumonia in this patient with weakness lethargy and decreased level of responsiveness and the question of community-acquired versus aspiration pneumonia 2-urine for Legionella antigen is positive, sputum cultures are currently pending 3-Patient to continue with the current treatment of Levaquin Zosyn and monitor his clinical course closely Dictation was produced using [employer] dictation software. please excuse any grammatical, word or spelling errors. Time with Patient: Less than 30
--- NOTE | 2023-03-03 12:12 | P.PN ---
Subjective Progress Note Date: 03/03/23 62 year old M with PMH of CKD, hypertension, gout, diabetes mellitus presents to the ED after being found down. Patient is lethargic and sleepy and majority of history is provided by his father. Patient is single, lives alone, takes care of his ADLs and IADL's and normally very active. Father states he has been dealing with a cold over the past week. Symptoms include cough, rhinorrhea, malaise, diarrhea, nausea and vomiting, poor appetite. Last time seen normal was yesterday at 6:30PM when he went to bed. Found down this morning by his father, apparently tried to use the washroom last night, unable to make it to bed, laid on the floor all night. EMS was subsequently called. In the ED, he underwent extensive workup. Tmax 100.7F. HR in the 90s. BP 92/47. 92% on RA. CBC showed leukocytosis of 11.1, hemoglobin of 8.3 and platelet count 142. INR 1.2 CMP showed potassium of 5.4, bicarb 10, BUN 113, creatinine 8.47, glucose 324, total bilirubin 2. Lactic acid 2.1. CPK 1240. Troponin 0.457. Acetone negative. Influenza, RSV, COVID-19 negative. Chest x-ray reviewed by me showed large left sided PNA. EKG showed sinus rhythm with no ST elevation. CODE BLUE was called yesterday. Patient was found to be in PEA arrest. He was given multiple amps of sodium bicarb and epinephrine. Patient was intubated. ROSC was achieved and he was transferred to the ICU. Dr. Lacy, Dr. Juarez and Dr. Simon was contacted. Emergent hemodialysis access was obtained and patient was started on dialysis. 03/01 Patient was seen and examined. Intubated in the ICU. Currently on propofol at 40 mcg/kg/min. Levophed running at 0.07 mcg/kg/hr. Currently on Rocephin and Azithromycin for antibiotics. CBC WBC count 11.4 and Hg 7.7, Plt 146. ABG pH 7.56, pCO2 28. BMP Na 136, K 3.4, BUN 62, Cr 4.55, glucose 171, Ca 7.7. Troponin 0.388, 0.422, 0.447. CXR shows left sided opacities, ET tube in place, NG tube and left central venous catheter. 03/02 Patient was seen and examined. Intubated in the ICU. Currently on propofol at 40 mcg/kg/min. Levophed running at 0.11 mcg/kg/hr. Legionella Ag +, started on Levaquin and started on Zosyn by ID, Rocephin/Azithromcyin discontinued. Echocardiogram shows EF 20-25% with moderate TR/MR thus Cardiology is consulted. CBC WBC count 12.1 and Hg 8.2, Plt 139. ABG pH 7.53, pCO2 25. BMP bicarb 18, BUN 73, Cr 5.21, glucose 190, Ca 7.1. A1c 8.2. Iron 20, Ferritin 5282. Hepatitis negative. Plans for HD today and tomorrow. 03/03 Patient was seen and examined. Intubated in the ICU. Currently on propofol at 30 mcg/kg/min. Levophed running at 0.08 mcg/kg/hr. Antibiotics include Levaqu in and Zosyn for treatment of Legionella and anaerobic coverage. CBC WBC count 11 and Hg 8.3, Plt 139. ABG pH 7.45, pCO2 34. BMP Na 134, K 3.2, bicarb 19, BUN 56, Cr 3.35, glucose 244, Ca 7.3. CXR shows left sided opacities, similar to previous CXRs. UCx negative. BCx prelim negative. Sputum Cx pending. General: Intubated Derm: warm, dry Head: atraumatic, normocephalic, symmetric Eyes: EOMI, no lid lag, anicteric sclera Mouth: no lip lesion, dry membranes moist Cardiovascular: S1S2 tachycardic, no murmur Lungs: Coarse BS bilateral, no rhonchi, no rales , no accessory muscle use Abdominal: soft, nontender to palpation, + BS Ext: no gross muscle atrophy, no edema, no contractures Neuro: Unable to perform Psych: Intubated PEA arrest Acute hypoxic respiratory failure Septic shock related to Legionaires PNA Acute kidney injury on chronic kidney disease Troponin elevation HFrEF Acute metabolic encephalopathy Rhabdomyolysis Normocytic anemia Hypokalemia Chronic conditions: Hypertension, gout, diabetes mellitus Resolved: Metabolic acidosis, Hyperkalemia Based on my assessment of this patient, this patient meets a high complexity level of care. Patient has an acute diagnosis of sepsis related to community acquired PNA that poses a threat to life or bodily function. Also has ROSANGELA on CKD with severe acidosis and hyperkalemia likely requiring dialysis. Complicated with troponin elevation and rhabomyolysis. PEA arrest: Status post ROSC 02/28. Acute hypoxic respiratory failure: Ventilator support. Pulm toileting. Septic shock related to Legionaries pneumonia: Hold Coreg. Legionella Ag +. Levaquin 500 mg IV Q48H, Zosyn 3.375 g IV TID started 03/02. NS at 100 cc/hr. Telemetry monitoring. Titrate Levophed to maintain MAP > 65. Pulmonology and ID on board. Acute kidney injury on chronic kidney disease: Multifactorial. Sepsis. Dehydration due to N/V, poor appetite and diarrhea. Underwent emergent HD on 02/28. Plans for HD today and tomorrow. Nephrology on board. Troponin elevation: Likely due to demand ischemia. Trop flat. Echocardiogram as above. Cardiology consult. HFrEF: EF 20-25%. Cardiology consulted. Acute metabolic encephalopathy: Likely related to above. Fall precautions. PT and OT consult when able to participate. Rhabdomyolysis: Hold simvastatin. IV hydration as above. Normocytic anemia: Likely AOCD due to CKD. Transfuse if Hg < 7. Hypokalemia: Replace via protocol. Father is the decision maker. FULL CODE. Heparin 5000 units SQ BID for DVT prophylaxis. Protonix 40 mg IV QD for GI prophylaxis. I have reviewed the following financial planning consultant notes: Pulm, Cardiology, Nephro note. I have reviewed the results of the following tests: As above. I have ordered the following tests: Pending: BCx. Sputum Cx. CBC and BMP ordered for tomorrow morning. I have discussed the care of this patient with the following independent historian: I have independently interpreted the following test below: I have discussed the management of this patient with the following physician: This patient meets a high level of care for the following reasons: Patient requires IV vasopressors which requires intensive monitoring of hemodynamics. Patient requires IV anesthetics to be maintained on the ventilator which requires intensive monitoring of hemodynamics and respiratory toxicity. Objective - Vital Signs Vital signs: Vital Signs Temp 97.6 F 03/03/23 08:00 Pulse 80 03/03/23 08:00 Resp 22 03/03/23 08:00 BP 93/70 03/02/23 23:45 Pulse Ox 94 L 03/03/23 08:00 FiO2 50 03/03/23 08:02 Intake & Output 03/02/23 03/03/23 03/03/23 18:59 06:59 18:59 Intake Total 3154.267 2118.861 444.062 Output Total 540 35 5 Balance 2614.267 2083.861 439.062 Weight 77.8 kg 79.9 kg Intake: IV 1300 1200 225 Piperacillin-Tazobactam 3 100 100 25 .375 gm In Sodium Chloride 0.9% 100 ml @ 25 mls/hr IVPB Q12HR [facility] Rx #:[id number] Potassium Chloride 20 meq 100 In Water For Injection 1 100ml.bag @ 50 mls/hr IVPB Q2H [facility] Rx#: [id number] Sodium Chloride 0.9% 1, 1200 1100 100 000 ml @ 100 mls/hr IV . Q10H [facility] Rx#:[id number] Intake, IV Titration 499.267 160.861 51.062 Amount Norepinephrine 4 mg In 308.400 60.861 Sodium Chloride 0.9% 250 ml @ 0.03 MCG/KG/MIN 8.14 mls/hr IV .Q24H [facility] Rx#: [id number] propofoL 1,000 mg In 190.867 100.000 51.062 Empty Bag 1 bag @ 15 MCG/ KG/MIN 6.409 mls/hr IV . [id number] [facility] Rx#:[id number] Oral 160 Tube Feeding 555 668 138 Hemodialysis 500 Other 140 90 30 Output: Urine 40 35 5 Hemodialysis 500 Other: Voiding Method Indwelling Catheter Indwelling Catheter Indwelling Catheter ABP, PAP, CO, CI - Last Documented Arterial Blood Pressure 109/59 - Labs CBC & Chem 7: 03/03/23 04:45 03/03/23 04:45 Labs: Abnormal Lab Results - Last 24 Hours (Table) 03/02/23 03/02/23 03/02/23 Range/Units 11:19 17:24 17:25 WBC (3.8-10.6) k/uL RBC (4.30-5.90) m/uL Hgb (13.0-17.5) gm/dL Hct (39.0-53.0) % Plt Count (150-450) k/uL ABG pCO2 (35-45) mmHg ABG pO2 (83-108) mmHg ABG Total CO2 (19-24) mmol/L Sodium (137-145) mmol/L Potassium (3.5-5.1) mmol/L Carbon Dioxide (22-30) mmol/L BUN (9-20) mg/dL Creatinine (0.66-1.25) mg/dL Glucose (74-99) mg/dL POC Glucose (mg/dL) 240 H 216 H 207 H (70-110) mg/dL Calcium (8.4-10.2) mg/dL 03/03/23 03/03/23 03/03/23 Range/Units 00:10 00:11 04:45 WBC 11.0 H (3.8-10.6) k/uL RBC 2.89 L (4.30-5.90) m/uL Hgb 8.3 L (13.0-17.5) gm/dL Hct 25.3 L (39.0-53.0) % Plt Count 109 L (150-450) k/uL ABG pCO2 (35-45) mmHg ABG pO2 (83-108) mmHg ABG Total CO2 (19-24) mmol/L Sodium (137-145) mmol/L Potassium 3.2 L (3.5-5.1) mmol/L Carbon Dioxide (22-30) mmol/L BUN (9-20) mg/dL Creatinine (0.66-1.25) mg/dL Glucose (74-99) mg/dL POC Glucose (mg/dL) 227 H (70-110) mg/dL Calcium (8.4-10.2) mg/dL 03/03/23 03/03/23 03/03/23 Range/Units 04:45 06:18 06:47 WBC (3.8-10.6) k/uL RBC (4.30-5.90) m/uL Hgb (13.0-17.5) gm/dL Hct (39.0-53.0) % Plt Count (150-450) k/uL ABG pCO2 34 L (35-45) mmHg ABG pO2 68 L (83-108) mmHg ABG Total CO2 25 H (19-24) mmol/L Sodium 134 L (137-145) mmol/L Potassium 3.2 L (3.5-5.1) mmol/L Carbon Dioxide 19 L (22-30) mmol/L BUN 56 H (9-20) mg/dL Creatinine 3.35 H (0.66-1.25) mg/dL Glucose 244 H (74-99) mg/dL POC Glucose (mg/dL) 250 H (70-110) mg/dL Calcium 7.3 L (8.4-10.2) mg/dL Microbiology - Last 24 Hours (Table) 03/01/23 11:25 Urine Culture - Final Urine,Catheterized 02/28/23 15:14 Blood Culture - Preliminary Blood 02/28/23 15:14 Blood Culture - Preliminary Blood
[2023-03-03 12:42] LABS: Glucose,Whole Blood 195 mg/dL (70-110)
[2023-03-03] MEDS: LEVOFLOXACIN 500MG-D5W PMX 500 MG in DEXTROSE/WATER 1 100ML.BAG IVPB SCH (17:41)
[2023-03-03 17:47] LABS: Glucose,Whole Blood 264 mg/dL (70-110)
[2023-03-04 00:17] LABS: Glucose,Whole Blood 313 mg/dL (70-110)
[2023-03-04] MEDS: INSULIN ASPART (NovoLOG) 100 UNIT/ML VIAL SQ SCH ×4 (00:22→17:13)
[2023-03-04] MEDS: NOREPINEPHRINE 4 MG in SODIUM CHLORIDE 0.9% 250 ML IV SCH ×2 (04:53→14:59)
[2023-03-04 05:12] LABS: HCT 26.8 % (39.0-53.0); HGB 8.6 gm/dL (13.0-17.5); Hypochromasia Slight; MCH 28.4 pg (25.0-35.0); MCHC 32.2 g/dL (31.0-37.0); MCV 88.2 fL (80.0-100.0); Mean Platelet Volume 10.9; RBC 3.04 m/uL (4.30-5.90); RDW 14.9 % (11.5-15.5); WBC 10.4 k/uL (3.8-10.6)
[2023-03-04 05:45] LABS: African American GFR (CKD) 30 (>60 ml/min/1.73 sqM); Anion Gap 10 mmol/L; Blood Urea Nitrogen 52 mg/dL (9-20); Calcium 7.6 mg/dL (8.4-10.2); Carbon Dioxide 21 mmol/L (22-30); Chloride 102 mmol/L (98-107); Glucose 280 mg/dL (74-99); Non-African American GFR(CKD) 26 (>60 ml/min/1.73 sqM); Potassium 3.8 mmol/L (3.5-5.1); Sodium 133 mmol/L (137-145)
[2023-03-04 06:19] LABS: Glucose,Whole Blood 304 mg/dL (70-110)
[2023-03-04] MEDS: MIDODRINE 5 MG TAB PO SCH ×3 (06:30→17:13)
[2023-03-04 06:46] LABS: ABG Base Excess 1.3 mmol/L; ABG HCO3 24 mmol/L (21-25); ABG Oxygen Saturation 96.2 % (94-97); ABG PCO2 31 mmHg (35-45); ABG PH 7.51 (7.35-7.45); ABG PO2 73 mmHg (83-108); ABG TCO2 25 mmol/L (19-24); Allen Test Performed? Yes
[2023-03-04 07:17] LABS: Platelet Count 82 k/uL (150-450)
--- NOTE | 2023-03-04 07:50 | XR ---
EXAMINATION TYPE: XR chest 1V portable DATE OF EXAM: 03/04/2023 5:56 AM COMPARISON: Chest radiographs from 03/03/2023 TECHNIQUE: XR chest 1V portable Portable AP radiograph of the chest. CLINICAL INDICATION:Male, 62 years old with history of tube placement; FINDINGS: Lungs/Pleura: Right lung is clear. No pneumothorax. Blunting of the left costal angle. Similar patchy airspace opacities within the left mid and lower lung. Pulmonary vascularity: Mild pulmonary vascular congestion. Heart/mediastinum: Cardiomediastinal silhouette is enlarged and stable. Musculoskeletal: No acute osseous pathology. Other findings: None Lines/Tubes: Stable endotracheal tube. NG tube demonstrated with sidehole at the distal esophagus. Distal tip is identified within the left upper quadrant. Stable left subclavian approach central venous catheter. IMPRESSION: 1. No significant change in patchy airspace opacities within the left mid to lower lung most consist ent with pneumonia. 2. Small left pleural effusion with mild pulmonary vascular congestion and cardiomegaly redemonstrat ed. 3. NG tube demonstrated with sidehole at the distal esophagus. Recommend advancement of 6 cm. 4. Stable remaining support lines and tubes.
[2023-03-04] MEDS ORDERED: HYDROCORTISONE SUCCINATE 100 MG/2 ML VIAL IV STA (07:56)
[2023-03-04] MEDS: PANTOPRAZOLE 40 MG/10 ML VIAL IVP SCH (08:13)
[2023-03-04] MEDS: allopurinoL 100 MG TAB PO SCH (08:13)
[2023-03-04] MEDS: HEPARIN SODIUM,PORCINE 5,000 UNIT/ML 1 ML VIAL SQ SCH ×2 (08:14→21:28)
[2023-03-04] MEDS: PIPERACILLIN-TAZOBACTAM 3.375 GM in SODIUM CHLORIDE 0.9% 100 ML IVPB SCH ×2 (08:14→21:28)
[2023-03-04] MEDS: CHLORHEXIDINE GLUCONATE 15 ML CUP MUCOUS MEM SCH ×2 (08:14→21:28)
--- NOTE | 2023-03-04 09:33 | P.PN ---
Subjective Progress Note Date: 03/04/23 Principal diagnosis: Cardiopulmonary arrest. I am seeing this patient in new consultation today 03/01/2023 in the intensive care unit, after the patient had a witnessed PEA cardiac arrest while on the Observation unit. Patient is a 62-year-old white male with past medical history significant for diabetes mellitus, diabetic foot ulcers, hypertension, hyperlipidemia, iron deficiency anemia, chronic kidney disease. Patient is currently sedated and intubated on the mechanical ventilator. He was admitted yesterday morning, after being found on the floor by his father. Apparently, the patient denied hitting his head or losing consciousness. Patient does have diabetes mellitus, and his blood sugars had been running high at home. Chest x- ray on admission showed a left lower lobe infiltrate consistent with community acquired pneumonia. Patient did have a fever with a T-max of 100.7F. Apparently, after being admitted to the observation unt, the patient was noted to have low blood pressure. The patient was given 1 L normal saline bolus and 5 amps sodium bicarb. Soon after, the patient had a cardiac arrest. Presenting rhythm was PEA. Patient had a limited downtime of less than 5 minutes. He received 1 mg of epinephrine. Rapid sequence intubation was performed. The patient was then transferred to the intensive care unit. Dr. Lacy did come in and place a left subclavian central line catheter and a right wrist arterial line. Patient was also noted to be in acute renal failure. He did have a right femoral hemodialysis catheter placed earlier, and is currently undergoing emergent hemodialysis. Patient is currently in the intensive care unit, intubated to the mechanical ventilator. He is sedated on propofol which is currently infusing at 40 mcg/kg/m. He is synchronous with the mechanical ventilator. Postintubation ABG shows a pO2 greater than 400, pCO2 27, pH of 7.43, this was done on ventilator settings of assist control, respiratory rate 22, tidal volume 500, FiO2 100%, and PEEP of 5. Patient's FiO2 was dropped to 50%. Peak pressures 27. Post intubation chest x-ray shows the endotracheal tube 4 cm above the anika. Oral gastric tube could be advanced 5 cm. There is a persistent left lower lobe infiltrate. Most recent CBC from yesterday evening showed a WBC count of 7.8, hemoglobin 7.1, hematocrit 22.7, platelets 120. No obvious acute blood loss was noted. Most recent available BMP shows sodium 140, potassium 4.6, chloride 107, serum bicarb 15, BUN 107, creatinine 7.82, glucose 282. Acetone negative. LFTs not elevated. CPK 1240. Currently, 3 A sodium bicarb in D5W is infusing at 100 ML's per hour. There is also normal saline infusing at 130 ML's per hour. Patient is currently anuric. Troponins elevated at 0.457, 0.388, and 0.422 respectively. ECG shows normal sinus rhythm without any obvious acute ischemic changes. Urinalysis not concerning for UTI. Lactic acid level was elevated at 4 is down 1.6. Negative for influenza, RSV, COVID- 19. Patient was started on empiric antibiotics in the form of ceftriaxone and azithromycin. Currently afebrile. Patient's condition is currently critical, moderate in the intensive care unit. Progress note dated 03/02/2023. 62-year-old male who was seen in consultation yesterday, status post cardiopulmonary arrest. The patient had a witnessed PEA arrest. He had a very short resuscitation time of about 5 minutes. The patient was transferred to the intensive care unit. I came into the hospital, on Sunday evening, and placed a right radial art line, and a left subclavian triple-lumen catheter. Remains in the intensive care unit, on the ventilator. Currently, the patient is on the volume assist control, rate 22, tidal volume 500, FiO2 50% PEEP of 5. Blood gases show pO2 of 97, pCO2 25, and pH is 7.53. The patient is receiving saline at 100 mL an hour, propofol at 40 mcg/kg/m, norepinephrine at 7.7 mcg/m, and vital high protein at 35 mL an hour, with a goal of 54 mL an hour. White count 12.1, hemoglobin 8.2, hematocrit 25.1, and platelet count 139,000. Sodium is 137, potassium 3.6, chlorides 105, CO2 18, anion gap 14, BUN 73, and creatinine 5.21. Calcium is 7.1. Today, is likely a dialysis day. Culture information is pending or negative. Chest x-ray continues to show a consolidative process, in the left midlung left lower lobe area. Progress note dated 03/03/2023. 62-year-old male who is seen today in room 264. The patient remains on [facility] ventilator, having sustained a cardiopulmonary arrest. Ventilator settings include the volume assist control, rate 22, tidal volume 500, FiO2 50%, and PEEP of 5. Arterial blood gases show pO2 38, pCO2 34, and the pH is 7.45. The patient remains on norepinephrine at 5 mcg/m, propofol at 30 mcg/kg/m, and saline at 100 mL an hour. The patient's also getting vital high protein at 69 mL an hour, which is goal. White count is 11, hemoglobin 8.3, hematocrit 25.3, and platelet count 109,000. Sodium 134, potassium 3.2, chlorides 103, CO2 19, BUN 56, and creatinine 3.35. Microbiologic sampling as as far negative. Chest x-ray shows extensive infiltrate, and left midlung and left lower lobe area. The patient continues on Zosyn and Levaquin. Yesterday, we attempted a daily interruption of sedation, and the patient did not do well. We will attempt that again today. Progress note dated 03/04/2023. 62-year-old male, seen again in room 264. The patient remains on the mechanical ventilator. He is status post brief cardiopulmonary arrest, with cardiopulmonary resuscitation, and return of spontaneous circulation. The cardiac arrest was brief, lasting maybe 5-7 minutes. Current ventilator settings include the volume assist control, rate 22, tidal volume 500, FiO2 50%, and PEEP of 5. Blood gases show pO2 of 73, pCO2 31, and pH 7.51. The patient continues on propofol at 35 mcg/kg/m, norepinephrine at 4 mcg/m, and saline at KVO. The patient is getting vital high protein at 69 mL an hour, which is goal. His Legionella urinary antigen was positive. His chest x-ray continues to show a left-sided infiltrate. He did have hemodialysis yesterday, and 1 L of fluid was removed. White count 10.4, hemoglobin 8.6, hematocrit 26.8, and platelet count 82,000. Sodium 133, potassium 3.8, chlorides 102, CO2 21, BUN 52, creatinine 2.55. Chest x-ray shows a patchy infiltrate, involving the left midlung and left lower lobe area. The chest x-ray in my opinion is essentially unchanged. Objective - Vital Signs Vital signs: Vital Signs Temp 97.7 F 03/04/23 08:00 Pulse 79 03/04/23 09:00 Resp 25 H 03/04/23 09:00 BP 138/59 03/03/23 12:42 Pulse Ox 95 03/04/23 09:00 FiO2 50 03/04/23 08:00 Intake & Output 03/03/23 03/04/23 03/04/23 18:59 06:59 18:59 Intake Total 2439.077 1392.456 431.129 Output Total 1425 30 0 Balance 5934.170 3393.456 431.129 Weight 79.9 kg 78.6 kg Intake: IV 785 220 30 KVO 80 30 Levofloxacin 500Mg-D5w 100 Pmx 500 mg In Dextrose/ Water 1 100ml.bag @ 100 mls/hr IVPB Q48H [facility] Rx#: [id number] Piperacillin-Tazobactam 3 125 100 .375 gm In Sodium Chloride 0.9% 100 ml @ 25 mls/hr IVPB Q12HR [facility] Rx #:[id number] Potassium Chloride 20 meq 300 In Water For Injection 1 100ml.bag @ 50 mls/hr IVPB Q2H [facility] Rx#: [id number] Sodium Chloride 0.9% 1, 260 40 000 ml @ 100 mls/hr IV . Q10H [facility] Rx#:[id number] Intake, IV Titration 405.077 323.456 64.129 Amount Norepinephrine 4 mg In 270.197 218.184 Sodium Chloride 0.9% 250 ml @ 0.03 MCG/KG/MIN 8.14 mls/hr IV .Q24H [facility] Rx#: [id number] propofoL 1,000 mg In 134.880 105.272 64.129 Empty Bag 1 bag @ 15 MCG/ KG/MIN 6.409 mls/hr IV . [id number] [facility] Rx#:[id number] Oral 100 Tube Feeding 759 759 207 Hemodialysis 400 Other 90 90 30 Output: Urine 25 30 0 Hemodialysis 1400 Other: Voiding Method Indwelling Catheter Indwelling Catheter Indwelling Catheter ABP, PAP, CO, CI - Last Documented Arterial Blood Pressure 125/50 - Exam No acute distress, sedated with propofol, with an orally placed endotracheal tub e and NG tube. HEENT examination is grossly unremarkable. Neck supple. Full range of motion. No adenopathy thyromegaly or neck vein distention. Cardiovascular examination reveals regular rhythm rate. S1-S2 normal. No S3 or S4. No discernible murmur noted. Heart sounds are distant. Heart rate 79 bpm. Lungs reveal bilateral rhonchi. No wheezes or crackles. Breath sounds are equal. Saturations are 95 %. Abdomen soft bowel sounds are heard. No masses or tenderness. Extremities are intact. No cyanosis clubbing or edema. Skin is without rash or lesion. Neurologic examination cannot be evaluated at this time. - Labs CBC & Chem 7: 03/04/23 04:55 03/04/23 04:55 Labs: Abnormal Lab Results - Last 24 Hours (Table) 03/03/23 03/03/23 03/04/23 Range/Units 12:40 17:46 00:16 RBC (4.30-5.90) m/uL Hgb (13.0-17.5) gm/dL Hct (39.0-53.0) % Plt Count (150-450) k/uL ABG pH (7.35-7.45) ABG pCO2 (35-45) mmHg ABG pO2 (83-108) mmHg ABG Total CO2 (19-24) mmol/L Sodium (137-145) mmol/L Carbon Dioxide (22-30) mmol/L BUN (9-20) mg/dL Creatinine (0.66-1.25) mg/dL Glucose (74-99) mg/dL POC Glucose (mg/dL) 195 H 264 H 313 H (70-110) mg/dL Calcium (8.4-10.2) mg/dL 03/04/23 03/04/23 03/04/23 Range/Units 04:55 04:55 06:17 RBC 3.04 L (4.30-5.90) m/uL Hgb 8.6 L (13.0-17.5) gm/dL Hct 26.8 L (39.0-53.0) % Plt Count 82 L (150-450) k/uL ABG pH (7.35-7.45) ABG pCO2 (35-45) mmHg ABG pO2 (83-108) mmHg ABG Total CO2 (19-24) mmol/L Sodium 133 L (137-145) mmol/L Carbon Dioxide 21 L (22-30) mmol/L BUN 52 H (9-20) mg/dL Creatinine 2.55 H (0.66-1.25) mg/dL Glucose 280 H (74-99) mg/dL POC Glucose (mg/dL) 304 H (70-110) mg/dL Calcium 7.6 L (8.4-10.2) mg/dL 03/04/23 Range/Units 06:41 RBC (4.30-5.90) m/uL Hgb (13.0-17.5) gm/dL Hct (39.0-53.0) % Plt Count (150-450) k/uL ABG pH 7.51 H (7.35-7.45) ABG pCO2 31 L (35-45) mmHg ABG pO2 73 L (83-108) mmHg ABG Total CO2 25 H (19-24) mmol/L Sodium (137-145) mmol/L Carbon Dioxide (22-30) mmol/L BUN (9-20) mg/dL Creatinine (0.66-1.25) mg/dL Glucose (74-99) mg/dL POC Glucose (mg/dL) (70-110) mg/dL Calcium (8.4-10.2) mg/dL Microbiology - Last 24 Hours (Table) 02/28/23 15:14 Blood Culture - Preliminary Blood 02/28/23 15:14 Blood Culture - Preliminary Blood 02/28/23 20:10 Gram Stain - Final Sputum Sputum Culture - Final Assessment and Plan Assessment: Witnessed PEA cardiac arrest with a limited down time of less than 5 minutes. Acute hypoxemic respiratory failure, requiring intubation and mechanical ventilation. Left lower lobe community-acquired pneumonia and sepsis, secondary to Legionella pneumophila. Metabolic anion gap acidosis, secondary to lactic acidosis and sepsis. Hypotension, improved with fluid resuscitation. Acute on chronic kidney disease, currently receiving hemodialysis. Acute rhabdomyolysis, with mildly elevated CPK. Elevated troponins, likely related to supply/demand mismatch. Anemia of chronic disease, hemoglobin lower than baseline. Diabetes mellitus, insulin-dependent. Hyperlipidemia. Plan: Plan dated 03/02/2023. The patient may not be ready for extubation, but we will do a daily interruption of sedation, and assess the patient for a spontaneous breathing trial. The patient remains on norepinephrine at about 8 mcg/m. The patient continues on propofol for sedation at 40 mcg/kg/m. The patient is receiving tube feedings. Labs, x-rays, and medications are reviewed. Blood gases show a primary respiratory alkalosis. The patient continues on Zosyn, and Levaquin, as per infectious diseases. We will continue to follow make recommendations along the way. Prognosis is guarded. The patient looks much older than his stated age. Plan dated 03/03/2023. The patient is maintained on Zosyn and Levaquin. Labs, x-rays, and medications are reviewed. The patient's overall prognosis remains guarded. The patient is currently on norepinephrine, and propofol for sedation. Yesterday, he did poorly with his daily interruption of sedation. Gases have been reviewed. Labs and x-rays are reviewed. He is getting tube feedings with vital high protein at goal, which is 69 mL an hour. We will continue to follow and make recommendations along the way. The patient so far prognosis remains guarded. Plan dated 03/04/2023. The patient continues on Zosyn and Levaquin. Fluoroquinolones a very effective against Legionnaires disease. The patient's other medications have been reviewed. The patient is receiving tube feedings, at goal. The patient will have another daily interruption of sedation today. He may or may not be ready for weaning. Labs, x-rays, and medications are reviewed. The patient's overall prognosis remains guarded. We will continue to follow make recommendations along the way. The patient does continue on norepinephrine at 4 mcg/m. Time with Patient: Greater than 30
--- NOTE | 2023-03-04 10:26 | P.PN ---
Subjective Patient is seen for follow-up for acute kidney injury on top of chronic kidney disease. He was admitted with weakness and severe acidosis. Patient developed cardiac arrest in the ER and has been intubated. Started hemodialysis on 03/01/2023. Patient remains oliguric with urine output at 0- 5 mL an hour. Levo fed is being decreased FiO2 is stable at 50%. Objective - Vital Signs Vital signs: Vital Signs Temp 97.7 F 03/04/23 08:00 Pulse 81 03/04/23 10:00 Resp 23 03/04/23 10:00 BP 138/59 03/03/23 12:42 Pulse Ox 96 03/04/23 10:00 FiO2 50 03/04/23 08:00 Intake & Output 03/03/23 03/04/23 03/04/23 18:59 06:59 18:59 Intake Total 2439.077 1392.456 595.157 Output Total 1425 30 0 Balance 7808.311 7968.456 595.157 Weight 79.9 kg 78.6 kg Intake: IV 785 220 40 KVO 80 40 Levofloxacin 500Mg-D5w 100 Pmx 500 mg In Dextrose/ Water 1 100ml.bag @ 100 mls/hr IVPB Q48H [facility] Rx#: [id number] Piperacillin-Tazobactam 3 125 100 .375 gm In Sodium Chloride 0.9% 100 ml @ 25 mls/hr IVPB Q12HR [facility] Rx #:[id number] Potassium Chloride 20 meq 300 In Water For Injection 1 100ml.bag @ 50 mls/hr IVPB Q2H [facility] Rx#: [id number] Sodium Chloride 0.9% 1, 260 40 000 ml @ 100 mls/hr IV . Q10H [facility] Rx#:[id number] Intake, IV Titration 405.077 323.456 149.157 Amount Norepinephrine 4 mg In 270.197 218.184 82.393 Sodium Chloride 0.9% 250 ml @ 0.03 MCG/KG/MIN 8.14 mls/hr IV .Q24H [facility] Rx#: [id number] propofoL 1,000 mg In 134.880 105.272 66.764 Empty Bag 1 bag @ 15 MCG/ KG/MIN 6.409 mls/hr IV . [id number] [facility] Rx#:[id number] Oral 100 Tube Feeding 759 759 276 Hemodialysis 400 Other 90 90 30 Output: Urine 25 30 0 Hemodialysis 1400 Other: Voiding Method Indwelling Catheter Indwelling Catheter Indwelling Catheter ABP, PAP, CO, CI - Last Documented Arterial Blood Pressure 141/57 - Exam Patient is awake and on the vent Examination of the heart S1 and S2 Examination of the lungs bilateral breath sounds are heard Abdomen is soft nontender Examination of lower extremities shows trace edema - Labs CBC & Chem 7: 03/04/23 04:55 03/04/23 04:55 Labs: Abnormal Lab Results - Last 24 Hours (Table) 03/03/23 03/03/23 03/04/23 Range/Units 12:40 17:46 00:16 RBC (4.30-5.90) m/uL Hgb (13.0-17.5) gm/dL Hct (39.0-53.0) % Plt Count (150-450) k/uL ABG pH (7.35-7.45) ABG pCO2 (35-45) mmHg ABG pO2 (83-108) mmHg ABG Total CO2 (19-24) mmol/L Sodium (137-145) mmol/L Carbon Dioxide (22-30) mmol/L BUN (9-20) mg/dL Creatinine (0.66-1.25) mg/dL Glucose (74-99) mg/dL POC Glucose (mg/dL) 195 H 264 H 313 H (70-110) mg/dL Calcium (8.4-10.2) mg/dL 03/04/23 03/04/23 03/04/23 Range/Units 04:55 04:55 06:17 RBC 3.04 L (4.30-5.90) m/uL Hgb 8.6 L (13.0-17.5) gm/dL Hct 26.8 L (39.0-53.0) % Plt Count 82 L (150-450) k/uL ABG pH (7.35-7.45) ABG pCO2 (35-45) mmHg ABG pO2 (83-108) mmHg ABG Total CO2 (19-24) mmol/L Sodium 133 L (137-145) mmol/L Carbon Dioxide 21 L (22-30) mmol/L BUN 52 H (9-20) mg/dL Creatinine 2.55 H (0.66-1.25) mg/dL Glucose 280 H (74-99) mg/dL POC Glucose (mg/dL) 304 H (70-110) mg/dL Calcium 7.6 L (8.4-10.2) mg/dL 03/04/23 Range/Units 06:41 RBC (4.30-5.90) m/uL Hgb (13.0-17.5) gm/dL Hct (39.0-53.0) % Plt Count (150-450) k/uL ABG pH 7.51 H (7.35-7.45) ABG pCO2 31 L (35-45) mmHg ABG pO2 73 L (83-108) mmHg ABG Total CO2 25 H (19-24) mmol/L Sodium (137-145) mmol/L Carbon Dioxide (22-30) mmol/L BUN (9-20) mg/dL Creatinine (0.66-1.25) mg/dL Glucose (74-99) mg/dL POC Glucose (mg/dL) (70-110) mg/dL Calcium (8.4-10.2) mg/dL Microbiology - Last 24 Hours (Table) 02/28/23 15:14 Blood Culture - Preliminary Blood 02/28/23 15:14 Blood Culture - Preliminary Blood 02/28/23 20:10 Gram Stain - Final Sputum Sputum Culture - Final Assessment and Plan Assessment: 1. Acute kidney injury on top of chronic kidney disease versus progression of underlying chronic kidney disease. Patient was hypotensive. He is currently oliguric. Started hemodialysis 03/01/2023 via temporary femoral dialysis catheter. Etiology of CK D is biopsy proven diabetic kidney disease and severe interstitial fibrosis. 2. Anion gap metabolic acidosis secondary to advanced renal failure and lactic acidosis, status post bicarb drip and improved with dialysis. 3. Status post cardiac arrest, PEA, downtime about 5 minutes 4. Mild rhabdomyolysis 5. CK D mineral bone disorder Plan: We will continue with hemodialysis on a Sunday schedule. Replace potassium
--- NOTE | 2023-03-04 10:53 | P.PN ---
Subjective Progress Note Date: 03/04/23 62 year old M with PMH of CKD, hypertension, gout, diabetes mellitus presents to the ED after being found down. Patient is lethargic and sleepy and majority of history is provided by his father. Patient is single, lives alone, takes care of his ADLs and IADL's and normally very active. Father states he has been dealing with a cold over the past week. Symptoms include cough, rhinorrhea, malaise, diarrhea, nausea and vomiting, poor appetite. Last time seen normal was yesterday at 6:30PM when he went to bed. Found down this morning by his father, apparently tried to use the washroom last night, unable to make it to bed, laid on the floor all night. EMS was subsequently called. In the ED, he underwent extensive workup. Tmax 100.7F. HR in the 90s. BP 92/47. 92% on RA. CBC showed leukocytosis of 11.1, hemoglobin of 8.3 and platelet count 142. INR 1.2 CMP showed potassium of 5.4, bicarb 10, BUN 113, creatinine 8.47, glucose 324, total bilirubin 2. Lactic acid 2.1. CPK 1240. Troponin 0.457. Acetone negative. Influenza, RSV, COVID-19 negative. Chest x-ray reviewed by me showed large left sided PNA. EKG showed sinus rhythm with no ST elevation. CODE BLUE was called yesterday. Patient was found to be in PEA arrest. He was given multiple amps of sodium bicarb and epinephrine. Patient was intubated. ROSC was achieved and he was transferred to the ICU. Dr. Lacy, Dr. Juarez and Dr. Simon was contacted. Emergent hemodialysis access was obtained and patient was started on dialysis. 03/01 Patient was seen and examined. Intubated in the ICU. Currently on propofol at 40 mcg/kg/min. Levophed running at 0.07 mcg/kg/hr. Currently on Rocephin and Azithromycin for antibiotics. CBC WBC count 11.4 and Hg 7.7, Plt 146. ABG pH 7.56, pCO2 28. BMP Na 136, K 3.4, BUN 62, Cr 4.55, glucose 171, Ca 7.7. Troponin 0.388, 0.422, 0.447. CXR shows left sided opacities, ET tube in place, NG tube and left central venous catheter. 03/02 Patient was seen and examined. Intubated in the ICU. Currently on propofol at 40 mcg/kg/min. Levophed running at 0.11 mcg/kg/hr. Legionella Ag +, started on Levaquin and started on Zosyn by ID, Rocephin/Azithromcyin discontinued. Echocardiogram shows EF 20-25% with moderate TR/MR thus Cardiology is consulted. CBC WBC count 12.1 and Hg 8.2, Plt 139. ABG pH 7.53, pCO2 25. BMP bicarb 18, BUN 73, Cr 5.21, glucose 190, Ca 7.1. A1c 8.2. Iron 20, Ferritin 5282. Hepatitis negative. Plans for HD today and tomorrow. 03/03 Patient was seen and examined. Intubated in the ICU. Currently on propofol at 30 mcg/kg/min. Levophed running at 0.08 mcg/kg/hr. Antibiotics include Levaqu in and Zosyn for treatment of Legionella and anaerobic coverage. CBC WBC count 11 and Hg 8.3, Plt 139. ABG pH 7.45, pCO2 34. BMP Na 134, K 3.2, bicarb 19, BUN 56, Cr 3.35, glucose 244, Ca 7.3. CXR shows left sided opacities, similar to previous CXRs. UCx negative. BCx prelim negative. Sputum Cx pending. 03/04 Patient was seen and examined. Intubated in the ICU. Currently on propofol at 35 mcg/kg/min. Did not do too well with sedation holiday yesterday. Levophed running at 0.06 mcg/kg/hr. Antibiotics include Levaquin and Zosyn for treatment of Legionella and anaerobic coverage. CBC Hg 8.6, Plt 82. ABG pH 7.51, pCO2 31. BMP Na 133, bicarb 21, BUN 52, Cr 2.55, glucose 250, Ca 7.6. CXR shows left sided opacities, similar to previous CXRs. All cultures negative. General: Intubated Derm: warm, dry Head: atraumatic, normocephalic, symmetric Eyes: EOMI, no lid lag, anicteric sclera Mouth: no lip lesion, dry membranes moist Cardiovascular: S1S2 tachycardic, no murmur Lungs: Coarse BS bilateral, no rhonchi, no rales , no accessory muscle use Abdominal: soft, nontender to palpation, + BS Ext: no gross muscle atrophy, no edema, no contractures Neuro: Unable to perform Psych: Intubated PEA arrest Acute hypoxic respiratory failure Septic shock related to Legionaires PNA Acute kidney injury on chronic kidney disease Diabetes mellitus with hyperglycemia Troponin elevation HFrEF Acute metabolic encephalopathy Rhabdomyolysis Normocytic anemia Thrombocytopenia Chronic conditions: Hypertension, gout Resolved: Metabolic acidosis, Hyperkalemia, Hypokalemia Based on my assessment of this patient, this patient meets a high complexity level of care. Patient has an acute diagnosis of sepsis related to community acquired PNA that poses a threat to life or bodily function. Also has ROSANGELA on CKD with severe acidosis and hyperkalemia likely requiring dialysis. Complicated with troponin elevation and rhabomyolysis. PEA arrest: Status post ROSC 02/28. Acute hypoxic respiratory failure: Ventilator support. Pulm toileting. Septic shock related to Legionaries pneumonia: Hold Coreg. Legionella Ag +. Levaquin 500 mg IV Q48H, Zosyn 3.375 g IV TID started 03/02. Telemetry monitoring. Titrate Levophed to maintain MAP > 65. Pulmonology and ID on board. Acute kidney injury on chronic kidney disease: Multifactorial. Sepsis. Dehydration due to N/V, poor appetite and diarrhea. Underwent emergent HD on 02/28. Nephrology on board. Plans for HD on [facility] schedule. Diabetes mellitus with hyperglycemia: Blood glucose in the 300s. Switch JOE to MISS Q6H. Troponin elevation: Likely due to demand ischemia. Trop flat. Echocardiogram as above. Cardiology consult. HFrEF: EF 20-25%. Cardiology consulted. Acute metabolic encephalopathy: Likely related to above. Fall precautions. PT and OT consult when able to participate. Rhabdomyolysis: Hold simvastatin. IV hydration as above. Normocytic anemia: Likely AOCD due to CKD. Transfuse if Hg < 7. Thrombocytopenia: HIT panel. Monitor. Father is the decision maker. FULL CODE. Heparin 5000 units SQ BID for DVT prophylaxis. Protonix 40 mg IV QD for GI prophylaxis. I have reviewed the following behavioral consultant notes: Pulm, ID, Nephro note. I have reviewed the results of the following tests: As above. I have ordered the following tests: CBC and BMP ordered for tomorrow morning. HIT panel. I have discussed the care of this patient with the following independent historian: I have independently interpreted the following test below: CXR as above. I have discussed the management of this patient with the following physician: This patient meets a high level of care for the following reasons: Patient requires IV vasopressors which requires intensive monitoring of hemodynamics. Patient requires IV anesthetics to be maintained on the ventilator which requires intensive monitoring of hemodynamics and respiratory toxicity. Patient requires adjustments in insulin which requires intensive monitoring for hypoglycemic episodes. Objective - Vital Signs Vital signs: Vital Signs Temp 97.9 F 03/04/23 04:00 Pulse 83 03/04/23 07:00 Resp 24 03/04/23 07:00 BP 138/59 03/03/23 12:42 Pulse Ox 96 03/04/23 07:00 FiO2 50 03/04/23 04:00 Intake & Output 03/03/23 03/04/23 03/04/23 18:59 06:59 18:59 Intake Total 2439.077 1392.456 79 Output Total 1425 30 0 Balance 1160.023 5383.456 79 Weight 79.9 kg 78.6 kg Intake: IV 785 220 10 KVO 80 10 Levofloxacin 500Mg-D5w 100 Pmx 500 mg In Dextrose/ Water 1 100ml.bag @ 100 mls/hr IVPB Q48H [facility] Rx#: [id number] Piperacillin-Tazobactam 3 125 100 .375 gm In Sodium Chloride 0.9% 100 ml @ 25 mls/hr IVPB Q12HR [facility] Rx #:[id number] Potassium Chloride 20 meq 300 In Water For Injection 1 100ml.bag @ 50 mls/hr IVPB Q2H [facility] Rx#: [id number] Sodium Chloride 0.9% 1, 260 40 000 ml @ 100 mls/hr IV . Q10H [facility] Rx#:[id number] Intake, IV Titration 405.077 323.456 Amount Norepinephrine 4 mg In 270.197 218.184 Sodium Chloride 0.9% 250 ml @ 0.03 MCG/KG/MIN 8.14 mls/hr IV .Q24H [facility] Rx#: [id number] propofoL 1,000 mg In 134.880 105.272 Empty Bag 1 bag @ 15 MCG/ KG/MIN 6.409 mls/hr IV . [id number] [facility] Rx#:[id number] Tube Feeding 759 759 69 Hemodialysis 400 Other 90 90 Output: Urine 25 30 0 Hemodialysis 1400 Other: Voiding Method Indwelling Catheter Indwelling Catheter ABP, PAP, CO, CI - Last Documented Arterial Blood Pressure 114/61 - Labs CBC & Chem 7: 03/04/23 04:55 03/04/23 04:55 Labs: Abnormal Lab Results - Last 24 Hours (Table) 03/03/23 03/03/23 03/04/23 Range/Units 12:40 17:46 00:16 RBC (4.30-5.90) m/uL Hgb (13.0-17.5) gm/dL Hct (39.0-53.0) % Plt Count (150-450) k/uL ABG pH (7.35-7.45) ABG pCO2 (35-45) mmHg ABG pO2 (83-108) mmHg ABG Total CO2 (19-24) mmol/L Sodium (137-145) mmol/L Carbon Dioxide (22-30) mmol/L BUN (9-20) mg/dL Creatinine (0.66-1.25) mg/dL Glucose (74-99) mg/dL POC Glucose (mg/dL) 195 H 264 H 313 H (70-110) mg/dL Calcium (8.4-10.2) mg/dL 03/04/23 03/04/23 03/04/23 Range/Units 04:55 04:55 06:17 RBC 3.04 L (4.30-5.90) m/uL Hgb 8.6 L (13.0-17.5) gm/dL Hct 26.8 L (39.0-53.0) % Plt Count 82 L (150-450) k/uL ABG pH (7.35-7.45) ABG pCO2 (35-45) mmHg ABG pO2 (83-108) mmHg ABG Total CO2 (19-24) mmol/L Sodium 133 L (137-145) mmol/L Carbon Dioxide 21 L (22-30) mmol/L BUN 52 H (9-20) mg/dL Creatinine 2.55 H (0.66-1.25) mg/dL Glucose 280 H (74-99) mg/dL POC Glucose (mg/dL) 304 H (70-110) mg/dL Calcium 7.6 L (8.4-10.2) mg/dL 03/04/23 Range/Units 06:41 RBC (4.30-5.90) m/uL Hgb (13.0-17.5) gm/dL Hct (39.0-53.0) % Plt Count (150-450) k/uL ABG pH 7.51 H (7.35-7.45) ABG pCO2 31 L (35-45) mmHg ABG pO2 73 L (83-108) mmHg ABG Total CO2 25 H (19-24) mmol/L Sodium (137-145) mmol/L Carbon Dioxide (22-30) mmol/L BUN (9-20) mg/dL Creatinine (0.66-1.25) mg/dL Glucose (74-99) mg/dL POC Glucose (mg/dL) (70-110) mg/dL Calcium (8.4-10.2) mg/dL Microbiology - Last 24 Hours (Table) 02/28/23 15:14 Blood Culture - Preliminary Blood 02/28/23 15:14 Blood Culture - Preliminary Blood 02/28/23 20:10 Gram Stain - Final Sputum Sputum Culture - Final
[2023-03-04 11:19] LABS: Glucose,Whole Blood 306 mg/dL (70-110)
--- NOTE | 2023-03-04 11:40 | PN ---
PROGRESS NOTE HISTORY OF PRESENT ILLNESS: Franky is a 62-year-old gentleman, who is admitted to ICU following a cardiac arrest in the ER, following his presentation with respiratory insufficiency. They are currently giving him a sedation holiday, looks alert and is responding to his name. Remains on ventilator. Blood pressure has improved, but he is on midodrine and Levophed for hypotension. His echocardiogram revealed cardiomyopathy with severe LV systolic dysfunction, and he has renal insufficiency with a BUN of 52 and creatinine of 2.5. PHYSICAL EXAMINATION: VITAL SIGNS: Heart rate is 80 beats per minute, blood pressure is 140/50, respiratory rate is 23. CHEST: Reveals diminished air entry bilaterally. HEART: Reveals first and second heart sounds. There is a systolic murmur at the left lower sternal border. ABDOMEN: Soft. EXTREMITIES: Exam of extremities reveals mild edema bilaterally. LABORATORY DATA: Labs show a hemoglobin of 8.6. Potassium is 3.8, BUN is 52, creatinine is 2.5. ASSESSMENT: 1. Status post cardiac arrest. 2. Vent requiring respiratory failure. 3. Cardiomyopathy with severe left ventricular dysfunction. 4. Hypotension. PLAN: He will continue on the current medications. Once he is off the pressors, I will consider adding a beta-rhys to what he is on. MMODL / IJN: [id number] /
--- NOTE | 2023-03-04 15:15 | P.PN ---
Subjective Progress Note Date: 03/04/23 Principal diagnosis: Sepsis and Legionella pneumonia Patient is a 62-year-old male with a past medical history significant for diabetes mellitus hypertension renal insufficiency patient was brought into the ER concerning for weakness and did have some respiratory symptoms patient did have a fever and worsening respiratory status requiring intubation and admission to the ICU the patient urine for digital antigen came back positive evening of 03/01/2023. On today's evaluation that is 03/04/2023 patient remains to be afebrile, the patient remains to be intubated on the vent with an FiO2 stable at 50%, no significant purulent secretions through the ET vomiting diarrhea reported by the nursing staff, patient did get a right femoral dialysis catheter and has been dialyzed Patient white count normalized to 10.4 creatinine is 2.55, blood and sputum cultures currently pending, urine for Legionella antigen is positive Objective - Vital Signs Vital signs: Vital Signs Temp 97.7 F 03/04/23 12:00 Pulse 75 03/04/23 14:15 Resp 22 03/04/23 14:15 BP 138/59 03/03/23 12:42 Pulse Ox 97 03/04/23 14:15 FiO2 50 03/04/23 12:00 Intake & Output 03/03/23 03/04/23 03/04/23 18:59 06:59 18:59 Intake Total 2439.077 3522.814 7400.959 Output Total 1425 30 20 Balance 7953.475 0499.456 1031.959 Weight 79.9 kg 78.6 kg Intake: IV 785 220 80 KVO 80 80 Levofloxacin 500Mg-D5w 100 Pmx 500 mg In Dextrose/ Water 1 100ml.bag @ 100 mls/hr IVPB Q48H [facility] Rx#: [id number] Piperacillin-Tazobactam 3 125 100 .375 gm In Sodium Chloride 0.9% 100 ml @ 25 mls/hr IVPB Q12HR [facility] Rx #:[id number] Potassium Chloride 20 meq 300 In Water For Injection 1 100ml.bag @ 50 mls/hr IVPB Q2H [facility] Rx#: [id number] Sodium Chloride 0.9% 1, 260 40 000 ml @ 100 mls/hr IV . Q10H [facility] Rx#:[id number] Intake, IV Titration 405.077 323.456 179.959 Amount Norepinephrine 4 mg In 270.197 218.184 107.854 Sodium Chloride 0.9% 250 ml @ 0.03 MCG/KG/MIN 8.14 mls/hr IV .Q24H [facility] Rx#: [id number] propofoL 1,000 mg In 134.880 105.272 72.105 Empty Bag 1 bag @ 15 MCG/ KG/MIN 6.409 mls/hr IV . [id number] [facility] Rx#:[id number] Oral 180 Tube Feeding 759 759 552 Hemodialysis 400 Other 90 90 60 Output: Urine 25 30 20 Hemodialysis 1400 Other: Voiding Method Indwelling Catheter Indwelling Catheter Indwelling Catheter ABP, PAP, CO, CI - Last Documented Arterial Blood Pressure 146/82 - Exam GENERAL DESCRIPTION: Middle-aged male intubated on the vent RESPIRATORY SYSTEM: Unlabored breathing , decreased breath sound at the base HEART: S1 S2 regular rate and rhythm , ABDOMEN: Soft , no tenderness EXTREMITIES: No edema feet - Labs CBC & Chem 7: 03/04/23 04:55 03/04/23 04:55 Labs: Abnormal Lab Results - Last 24 Hours (Table) 03/03/23 03/04/23 03/04/23 Range/Units 17:46 00:16 04:55 RBC 3.04 L (4.30-5.90) m/uL Hgb 8.6 L (13.0-17.5) gm/dL Hct 26.8 L (39.0-53.0) % Plt Count 82 L (150-450) k/uL ABG pH (7.35-7.45) ABG pCO2 (35-45) mmHg ABG pO2 (83-108) mmHg ABG Total CO2 (19-24) mmol/L Sodium (137-145) mmol/L Carbon Dioxide (22-30) mmol/L BUN (9-20) mg/dL Creatinine (0.66-1.25) mg/dL Glucose (74-99) mg/dL POC Glucose (mg/dL) 264 H 313 H (70-110) mg/dL Calcium (8.4-10.2) mg/dL 03/04/23 03/04/23 03/04/23 Range/Units 04:55 06:17 06:41 RBC (4.30-5.90) m/uL Hgb (13.0-17.5) gm/dL Hct (39.0-53.0) % Plt Count (150-450) k/uL ABG pH 7.51 H (7.35-7.45) ABG pCO2 31 L (35-45) mmHg ABG pO2 73 L (83-108) mmHg ABG Total CO2 25 H (19-24) mmol/L Sodium 133 L (137-145) mmol/L Carbon Dioxide 21 L (22-30) mmol/L BUN 52 H (9-20) mg/dL Creatinine 2.55 H (0.66-1.25) mg/dL Glucose 280 H (74-99) mg/dL POC Glucose (mg/dL) 304 H (70-110) mg/dL Calcium 7.6 L (8.4-10.2) mg/dL 03/04/23 Range/Units 11:18 RBC (4.30-5.90) m/uL Hgb (13.0-17.5) gm/dL Hct (39.0-53.0) % Plt Count (150-450) k/uL ABG pH (7.35-7.45) ABG pCO2 (35-45) mmHg ABG pO2 (83-108) mmHg ABG Total CO2 (19-24) mmol/L Sodium (137-145) mmol/L Carbon Dioxide (22-30) mmol/L BUN (9-20) mg/dL Creatinine (0.66-1.25) mg/dL Glucose (74-99) mg/dL POC Glucose (mg/dL) 306 H (70-110) mg/dL Calcium (8.4-10.2) mg/dL Microbiology - Last 24 Hours (Table) 02/28/23 15:14 Blood Culture - Preliminary Blood 02/28/23 15:14 Blood Culture - Preliminary Blood Assessment and Plan (1) Legionella pneumonia Current Visit: Yes Status: Acute Code(s): A48.1 - LEGIONNAIRES' DISEASE SNOMED Code(s): 720866136 (2) Sepsis Current Visit: Yes Status: Acute Code(s): A41.9 - SEPSIS, UNSPECIFIED ORGANISM SNOMED Code(s): 94691507 Plan: 1patient presented to hospital with sepsis in this patient with a fever tachycardia hypotension source is likely left lower lobe pneumonia in this patient with weakness lethargy and decreased level of responsiveness and the question of community-acquired versus aspiration pneumonia 2-urine for Legionella antigen is positive, sputum cultures are currently ne gative for any resistant pathogen 3-Patient fever has resolved and the patient white count has normalized, patient to continue with the current treatment of Levaquin Zosyn and monitor his clinical course closely Dictation was produced using [employer] dictation software. please excuse any grammatical, word or spelling errors. Time with Patient: Less than 30
--- NOTE | 2023-03-04 16:33 | P.CNNES ---
History of Present Illness Consult date: 03/04/23 Requesting physician: Ramiro Lacy Reason for Consult: r/o anoic brain injury History of Present Illness: This is a 62-year-old gentleman with a past medical history of diabetes, diabetic foot ulcer, hypertension, iron deficiency, chronic kidney disease who was found on the floor by his father. History was obtained from medical record and his nurse. Neurologist consult to rule out anoxic brain injury.it seems to the patient the presents our facility on 02/28/2023 since she was found on the floor by his father and it seems that the day prior he was feeling weak and the patient was taken DayQuil and NyQuil for his cough and went to bed. seems Sky the patient was in observation unit the patient had witnessed PA cardiac arrest and according to the nurse was about less than 5 minutes but unsure exactly duration. Since the patient the has pneumonia during this hospital visit and is been on antibiotic. And that is seems due to legionella pneumonia. She is intubated on a ventilator. According to patient nurse she is on IV propofol and he was off for 4 hours and only tracking. He's not follow commands or attempting to verbalize.when patient is off sedation he tachycardia according the nurse. it seems prior to this admission patient has chronic insufficiency and has been holding off getting dialysis. He has a acute on chronic kidney insufficiency and has been getting the dialysis and his kidneys has been improving. Review of Systems Limited but the positive and negative as per HPI. Past Medical History Past Medical History: Blood Disorder, Diabetes Mellitus, Hypertension, Renal Disease, Skin Disorder Additional Past Medical History / Comment(s): diabetic ulcers jose feet, iron infusion 3 weeks ago. IRON DEFICIENCY ANEMIA. History of Any Multi-Drug Resistant Organisms: None Reported Past Surgical History: Tonsillectomy Additional Past Surgical History / Comment(s): kidney biopsy Past Anesthesia/Blood Transfusion Reactions: No Reported Reaction Past Psychological History: No Psychological Hx Reported Smoking Status: Never smoker Past Alcohol Use History: Rare Past Drug Use History: None Reported - Past Family History Mother Family Medical History: Congestive Heart Failure (CHF), Coronary Artery Disease (CAD), Diabetes Mellitus Father Family Medical History: Cancer, Diabetes Mellitus Medications and Allergies Home Medications Medication Instructions Recorded Confirmed Type Insulin Aspart [NovoLOG Flexpen] 7 units SQ AC-BID 03/08/18 02/28/23 History allopurinoL [Zyloprim] 100 mg PO DAILY 03/08/18 02/28/23 History calcitrioL [Calcitriol] 0.25 mcg PO MOTUWETHFR 03/08/18 02/28/23 History Ergocalciferol (Vitamin D2) 1,250 mcg PO Q14D 02/28/23 02/28/23 History [Drisdol (50,000 Iu)] Sildenafil Citrate 50 mg PO DAILY PRN 02/28/23 02/28/23 History Simvastatin 10 mg PO DAILY 02/28/23 02/28/23 History carvediloL [Coreg] 6.25 mg PO BID 02/28/23 02/28/23 History Allergies Allergy/AdvReac Type Severity Reaction Status Date / Time No Known Allergies Allergy Verified 02/28/23 16:15 Physical Examination - Vital Signs Vital Signs: Vital Signs Temp Pulse Resp Pulse Ox FiO2 03/04/23 16:01 50 03/04/23 14:15 75 22 97 03/04/23 14:00 90 22 96 03/04/23 13:45 81 24 98 03/04/23 13:30 78 24 98 03/04/23 13:15 73 24 97 03/04/23 13:00 75 22 96 03/04/23 12:45 83 22 97 03/04/23 12:30 84 22 95 03/04/23 12:15 85 22 96 03/04/23 12:00 97.7 F 77 22 96 50 03/04/23 11:57 50 03/04/23 11:56 50 03/04/23 11:45 79 22 96 03/04/23 11:30 79 22 96 03/04/23 11:15 79 22 96 03/04/23 11:12 50 03/04/23 11:00 79 22 93 L 03/04/23 10:45 82 22 96 03/04/23 10:30 98 22 95 03/04/23 10:15 80 22 96 03/04/23 10:00 81 23 96 03/04/23 09:45 80 22 96 03/04/23 09:30 79 22 96 03/04/23 09:15 80 22 96 03/04/23 09:00 79 25 H 95 03/04/23 08:45 79 22 94 L 03/04/23 08:30 80 22 96 03/04/23 08:15 80 22 95 03/04/23 08:00 97.7 F 80 22 95 50 03/04/23 07:46 50 03/04/23 07:45 80 22 95 03/04/23 07:42 50 03/04/23 07:30 81 22 96 03/04/23 07:15 82 22 96 03/04/23 07:00 83 24 96 03/04/23 06:45 83 22 95 03/04/23 06:30 89 22 95 03/04/23 06:15 80 27 H 96 03/04/23 06:00 78 22 96 03/04/23 05:45 81 24 95 03/04/23 05:30 75 24 96 03/04/23 05:15 78 24 96 03/04/23 05:00 78 24 95 03/04/23 04:45 78 24 95 03/04/23 04:30 80 24 95 03/04/23 04:15 78 24 96 03/04/23 04:00 97.9 F 82 24 95 50 03/04/23 03:45 80 24 96 03/04/23 03:30 77 24 96 03/04/23 03:15 80 24 95 03/04/23 03:12 50 03/04/23 03:00 81 24 95 03/04/23 02:45 82 24 95 03/04/23 02:30 82 24 96 03/04/23 02:15 80 22 96 03/04/23 02:00 81 24 95 03/04/23 01:45 83 24 95 03/04/23 01:30 77 24 96 03/04/23 01:15 80 22 97 03/04/23 01:00 79 22 96 03/04/23 00:45 77 22 96 03/04/23 00:30 77 22 95 03/04/23 00:17 75 24 96 03/04/23 00:15 75 24 95 03/04/23 00:00 97.9 F 77 22 94 L 50 03/03/23 23:45 82 22 95 03/03/23 23:31 50 03/03/23 23:30 79 24 96 03/03/23 23:15 80 24 95 03/03/23 23:00 80 24 95 03/03/23 22:45 79 22 95 03/03/23 22:30 76 22 95 03/03/23 22:15 80 22 94 L 03/03/23 22:00 79 25 H 96 03/03/23 21:45 79 22 94 L 03/03/23 21:30 79 22 95 03/03/23 21:15 78 22 96 03/03/23 21:00 84 22 96 03/03/23 20:45 80 23 96 03/03/23 20:30 81 24 96 03/03/23 20:15 98.4 F 81 20 97 50 03/03/23 20:00 83 22 96 50 03/03/23 19:45 80 22 97 03/03/23 19:30 82 22 100 03/03/23 19:19 50 03/03/23 19:15 105 H 22 97 03/03/23 19:00 87 22 97 03/03/23 18:45 80 22 96 03/03/23 18:30 80 22 96 03/03/23 18:15 80 22 96 03/03/23 18:00 85 22 97 03/03/23 17:45 80 22 94 L 03/03/23 17:30 85 22 97 03/03/23 17:15 76 22 97 03/03/23 17:00 77 22 97 03/03/23 16:45 80 22 98 03/03/23 16:30 77 22 97 03/03/23 16:15 81 26 H 98 Intake and Output 03/04/23 03/04/23 03/04/23 06:59 14:59 22:59 Intake Total 756.995 6964.959 Output Total 25 20 Balance 883.500 0765.959 Intake: IV 80 80 KVO 80 80 Intake, IV Titration 230.626 179.959 Amount Norepinephrine 4 mg In 141.536 107.854 Sodium Chloride 0.9% 250 ml @ 0.03 MCG/KG/MIN 8.14 mls/hr IV .Q24H GALINDO Rx#: [id number] propofoL 1,000 mg In 89.090 72.105 Empty Bag 1 bag @ 15 MCG/ KG/MIN 6.409 mls/hr IV . [id number] GALINDO Rx#:[id number] Oral 180 Tube Feeding 483 552 Other 60 60 Output: Urine 25 20 Other: Voiding Method Indwelling Catheter Indwelling Catheter Weight 78.6 kg ABP, PAP, CO, CI - Last 8 Hours Arterial Blood Pressure 146/82 Arterial Blood Pressure 107/58 Arterial Blood Pressure 144/61 Arterial Blood Pressure 154/66 Arterial Blood Pressure 103/53 Arterial Blood Pressure 119/53 Arterial Blood Pressure 133/57 Arterial Blood Pressure 94/49 Arterial Blood Pressure 120/53 Arterial Blood Pressure 107/49 Arterial Blood Pressure 121/53 Arterial Blood Pressure 106/52 Arterial Blood Pressure 115/52 Arterial Blood Pressure 94/43 Arterial Blood Pressure 127/57 Arterial Blood Pressure 128/53 Arterial Blood Pressure 137/55 Arterial Blood Pressure 141/57 Arterial Blood Pressure 141/55 Arterial Blood Pressure 102/51 Arterial Blood Pressure 124/51 Arterial Blood Pressure 125/50 Arterial Blood Pressure 116/58 Arterial Blood Pressure 147/61 Arterial Blood Pressure 132/55 General: Lying in bed and does not appear in acute distress. HENT: Supple neck. Respiratory: Intubated on ventilator. Neuro: Limited. Patient is on IV Propofol 20mcg/kg/min. Is awake but is not verbalizing or following commands. Pupils are round, equal and reactive to light. No facial weakness. Has intact gag/cough reflex. Motor: Limited. Not withdrawaling to painful stimuli. No spontaneous movement. Reflexes: 1+ throughout. Results - Laboratory Findings CBC and BMP: 03/04/23 04:55 03/04/23 04:55 Abnormal Lab Findings: Abnormal Labs 02/28/23 02/28/23 02/28/23 11:37 13:13 13:13 WBC 11.1 H RBC 2.89 L Hgb 8.3 L Hct 26.3 L Plt Count 142 L Neutrophils # 10.7 H Neutrophils # (Manual) Lymphocytes # 0.2 L Lymphocytes # (Manual) PT 12.8 H INR 1.2 H APTT ABG pH ABG pCO2 ABG pO2 ABG HCO3 ABG Total CO2 ABG O2 Saturation Sodium Potassium Carbon Dioxide BUN Creatinine Glucose POC Glucose (mg/dL) 321 H Hemoglobin A1c Plasma Lactic Acid Yonathan Calcium Iron TIBC Transferrin Ferritin Total Bilirubin Creatine Kinase Troponin I Albumin Urine Protein Urine Glucose (UA) Urine Blood Urine Bacteria Urine Legionella Ag 02/28/23 02/28/23 02/28/23 13:13 13:13 13:13 WBC RBC Hgb Hct Plt Count Neutrophils # Neutrophils # (Manual) Lymphocytes # Lymphocytes # (Manual) PT INR APTT ABG pH ABG pCO2 ABG pO2 ABG HCO3 ABG Total CO2 ABG O2 Saturation Sodium Potassium 5.4 H Carbon Dioxide 10 L BUN 113 H* Creatinine 8.47 H* Glucose 324 H POC Glucose (mg/dL) Hemoglobin A1c Plasma Lactic Acid Yonathan 2.1 H* Calcium Iron TIBC Transferrin Ferritin Total Bilirubin 2.0 H Creatine Kinase 1240 H* Troponin I Albumin 3.2 L Urine Protein 2+ H Urine Glucose (UA) 1+ H Urine Blood Small H Urine Bacteria Rare H Urine Legionella Ag 02/28/23 02/28/23 02/28/23 13:13 15:14 17:55 WBC RBC Hgb Hct Plt Count Neutrophils # Neutrophils # (Manual) Lymphocytes # Lymphocytes # (Manual) PT INR APTT ABG pH ABG pCO2 ABG pO2 ABG HCO3 ABG Total CO2 ABG O2 Saturation Sodium Potassium Carbon Dioxide BUN Creatinine Glucose POC Glucose (mg/dL) 300 H Hemoglobin A1c Plasma Lactic Acid Yonathan Calcium Iron TIBC Transferrin Ferritin Total Bilirubin Creatine Kinase Troponin I 0.457 H* Albumin Urine Protein Urine Glucose (UA) Urine Blood Urine Bacteria Urine Legionella Ag Positive A 02/28/23 02/28/23 02/28/23 18:12 18:12 18:13 WBC RBC 2.77 L Hgb 8.0 L Hct 25.0 L Plt Count 139 L Neutrophils # Neutrophils # (Manual) 8.40 H Lymphocytes # Lymphocytes # (Manual) PT INR APTT ABG pH ABG pCO2 ABG pO2 ABG HCO3 ABG Total CO2 ABG O2 Saturation Sodium Potassium Carbon Dioxide 15 L BUN 105 H* Creatinine 7.32 H* Glucose 275 H POC Glucose (mg/dL) Hemoglobin A1c Plasma Lactic Acid Yonathan Calcium Iron TIBC Transferrin Ferritin Total Bilirubin Creatine Kinase Troponin I Albumin Urine Protein Urine Glucose (UA) Urine Blood Urine Bacteria Urine Legionella Ag 02/28/23 02/28/23 02/28/23 18:13 18:30 18:30 WBC RBC Hgb Hct Plt Count Neutrophils # Neutrophils # (Manual) Lymphocytes # Lymphocytes # (Manual) PT INR APTT 30.3 H ABG pH ABG pCO2 ABG pO2 ABG HCO3 ABG Total CO2 ABG O2 Saturation Sodium Potassium Carbon Dioxide BUN Creatinine Glucose POC Glucose (mg/dL) Hemoglobin A1c Plasma Lactic Acid Yonathan 4.0 H* Calcium Iron TIBC Transferrin Ferritin Total Bilirubin Creatine Kinase Troponin I 0.388 H* Albumin Urine Protein Urine Glucose (UA) Urine Blood Urine Bacteria Urine Legionella Ag 02/28/23 02/28/23 02/28/23 18:30 18:30 18:30 WBC RBC 2.48 L Hgb 7.1 L Hct 22.7 L Plt Count 120 L Neutrophils # Neutrophils # (Manual) Lymphocytes # Lymphocytes # (Manual) 0.23 L PT INR APTT ABG pH ABG pCO2 ABG pO2 ABG HCO3 ABG Total CO2 ABG O2 Saturation Sodium Potassium Carbon Dioxide 15 L BUN 107 H* Creatinine 7.82 H* Glucose 282 H POC Glucose (mg/dL) Hemoglobin A1c Plasma Lactic Acid Yonathan Calcium Iron TIBC Transferrin Ferritin Total Bilirubin Creatine Kinase Troponin I 0.422 H* Albumin Urine Protein Urine Glucose (UA) Urine Blood Urine Bacteria Urine Legionella Ag 02/28/23 02/28/23 02/28/23 19:45 21:02 23:42 WBC RBC Hgb Hct Plt Count Neutrophils # Neutrophils # (Manual) Lymphocytes # Lymphocytes # (Manual) PT INR APTT ABG pH ABG pCO2 27 L ABG pO2 >400 H ABG HCO3 17 L ABG Total CO2 18 L ABG O2 Saturation 100.0 H Sodium Potassium Carbon Dioxide BUN Creatinine Glucose POC Glucose (mg/dL) 336 H 371 H Hemoglobin A1c Plasma Lactic Acid Yonathan Calcium Iron TIBC Transferrin Ferritin Total Bilirubin Creatine Kinase Troponin I Albumin Urine Protein Urine Glucose (UA) Urine Blood Urine Bacteria Urine Legionella Ag 03/01/23 03/01/23 03/01/23 05:40 05:50 05:50 WBC RBC Hgb Hct Plt Count Neutrophils # Neutrophils # (Manual) Lymphocytes # Lymphocytes # (Manual) PT INR APTT ABG pH 7.56 H* ABG pCO2 28 L ABG pO2 ABG HCO3 ABG Total CO2 26 H ABG O2 Saturation 98.1 H Sodium Potassium Carbon Dioxide BUN Creatinine Glucose POC Glucose (mg/dL) Hemoglobin A1c 8.2 H Plasma Lactic Acid Yonathan Calcium Iron 20 L TIBC 115 L Transferrin 82.4 L Ferritin 5282.0 H Total Bilirubin Creatine Kinase Troponin I Albumin Urine Protein Urine Glucose (UA) Urine Blood Urine Bacteria Urine Legionella Ag 03/01/23 03/01/23 03/01/23 05:50 05:50 05:50 WBC 11.4 H RBC 2.65 L Hgb 7.7 L Hct 22.9 L Plt Count 146 L Neutrophils # Neutrophils # (Manual) Lymphocytes # Lymphocytes # (Manual) PT INR APTT ABG pH ABG pCO2 ABG pO2 ABG HCO3 ABG Total CO2 ABG O2 Saturation Sodium 136 L Potassium 3.4 L Carbon Dioxide BUN 62 H Creatinine 4.55 H Glucose 171 H POC Glucose (mg/dL) Hemoglobin A1c Plasma Lactic Acid Yonathan Calcium 7.6 L Iron TIBC Transferrin Ferritin Total Bilirubin Creatine Kinase 1059 H* Troponin I Albumin Urine Protein Urine Glucose (UA) Urine Blood Urine Bacteria Urine Legionella Ag 03/01/23 03/01/23 03/01/23 05:55 06:15 11:53 WBC RBC Hgb Hct Plt Count Neutrophils # Neutrophils # (Manual) Lymphocytes # Lymphocytes # (Manual) PT INR APTT ABG pH ABG pCO2 ABG pO2 ABG HCO3 ABG Total CO2 ABG O2 Saturation Sodium Potassium Carbon Dioxide BUN Creatinine Glucose POC Glucose (mg/dL) 188 H 143 H Hemoglobin A1c Plasma Lactic Acid Yonathan Calcium Iron TIBC Transferrin Ferritin Total Bilirubin Creatine Kinase Troponin I 0.447 H* Albumin Urine Protein Urine Glucose (UA) Urine Blood Urine Bacteria Urine Legionella Ag 03/01/23 03/02/23 03/02/23 17:54 00:13 05:29 WBC RBC Hgb Hct Plt Count Neutrophils # Neutrophils # (Manual) Lymphocytes # Lymphocytes # (Manual) PT INR APTT ABG pH 7.53 H ABG pCO2 25 L ABG pO2 ABG HCO3 ABG Total CO2 ABG O2 Saturation 98.3 H Sodium Potassium Carbon Dioxide BUN Creatinine Glucose POC Glucose (mg/dL) 172 H 240 H Hemoglobin A1c Plasma Lactic Acid Yonathan Calcium Iron TIBC Transferrin Ferritin Total Bilirubin Creatine Kinase Troponin I Albumin Urine Protein Urine Glucose (UA) Urine Blood Urine Bacteria Urine Legionella Ag 03/02/23 03/02/23 03/02/23 05:36 05:36 11:19 WBC 12.1 H RBC 2.87 L Hgb 8.2 L Hct 25.1 L Plt Count 139 L Neutrophils # Neutrophils # (Manual) Lymphocytes # Lymphocytes # (Manual) PT INR APTT ABG pH ABG pCO2 ABG pO2 ABG HCO3 ABG Total CO2 ABG O2 Saturation Sodium Potassium Carbon Dioxide 18 L BUN 73 H Creatinine 5.21 H Glucose 190 H POC Glucose (mg/dL) 240 H Hemoglobin A1c Plasma Lactic Acid Yonathan Calcium 7.1 L Iron TIBC Transferrin Ferritin Total Bilirubin Creatine Kinase Troponin I Albumin Urine Protein Urine Glucose (UA) Urine Blood Urine Bacteria Urine Legionella Ag 03/02/23 03/02/23 03/03/23 17:24 17:25 00:10 WBC RBC Hgb Hct Plt Count Neutrophils # Neutrophils # (Manual) Lymphocytes # Lymphocytes # (Manual) PT INR APTT ABG pH ABG pCO2 ABG pO2 ABG HCO3 ABG Total CO2 ABG O2 Saturation Sodium Potassium 3.2 L Carbon Dioxide BUN Creatinine Glucose POC Glucose (mg/dL) 216 H 207 H Hemoglobin A1c Plasma Lactic Acid Yonathan Calcium Iron TIBC Transferrin Ferritin Total Bilirubin Creatine Kinase Troponin I Albumin Urine Protein Urine Glucose (UA) Urine Blood Urine Bacteria Urine Legionella Ag 03/03/23 03/03/23 03/03/23 00:11 04:45 04:45 WBC 11.0 H RBC 2.89 L Hgb 8.3 L Hct 25.3 L Plt Count 109 L Neutrophils # Neutrophils # (Manual) Lymphocytes # Lymphocytes # (Manual) PT INR APTT ABG pH ABG pCO2 ABG pO2 ABG HCO3 ABG Total CO2 ABG O2 Saturation Sodium 134 L Potassium 3.2 L Carbon Dioxide 19 L BUN 56 H Creatinine 3.35 H Glucose 244 H POC Glucose (mg/dL) 227 H Hemoglobin A1c Plasma Lactic Acid Yonathan Calcium 7.3 L Iron TIBC Transferrin Ferritin Total Bilirubin Creatine Kinase Troponin I Albumin Urine Protein Urine Glucose (UA) Urine Blood Urine Bacteria Urine Legionella Ag 03/03/23 03/03/23 03/03/23 06:18 06:47 12:40 WBC RBC Hgb Hct Plt Count Neutrophils # Neutrophils # (Manual) Lymphocytes # Lymphocytes # (Manual) PT INR APTT ABG pH ABG pCO2 34 L ABG pO2 68 L ABG HCO3 ABG Total CO2 25 H ABG O2 Saturation Sodium Potassium Carbon Dioxide BUN Creatinine Glucose POC Glucose (mg/dL) 250 H 195 H Hemoglobin A1c Plasma Lactic Acid Yonathan Calcium Iron TIBC Transferrin Ferritin Total Bilirubin Creatine Kinase Troponin I Albumin Urine Protein Urine Glucose (UA) Urine Blood Urine Bacteria Urine Legionella Ag 03/03/23 03/04/23 03/04/23 17:46 00:16 04:55 WBC RBC 3.04 L Hgb 8.6 L Hct 26.8 L Plt Count 82 L Neutrophils # Neutrophils # (Manual) Lymphocytes # Lymphocytes # (Manual) PT INR APTT ABG pH ABG pCO2 ABG pO2 ABG HCO3 ABG Total CO2 ABG O2 Saturation Sodium Potassium Carbon Dioxide BUN Creatinine Glucose POC Glucose (mg/dL) 264 H 313 H Hemoglobin A1c Plasma Lactic Acid Yonathan Calcium Iron TIBC Transferrin Ferritin Total Bilirubin Creatine Kinase Troponin I Albumin Urine Protein Urine Glucose (UA) Urine Blood Urine Bacteria Urine Legionella Ag 03/04/23 03/04/23 03/04/23 04:55 06:17 06:41 WBC RBC Hgb Hct Plt Count Neutrophils # Neutrophils # (Manual) Lymphocytes # Lymphocytes # (Manual) PT INR APTT ABG pH 7.51 H ABG pCO2 31 L ABG pO2 73 L ABG HCO3 ABG Total CO2 25 H ABG O2 Saturation Sodium 133 L Potassium Carbon Dioxide 21 L BUN 52 H Creatinine 2.55 H Glucose 280 H POC Glucose (mg/dL) 304 H Hemoglobin A1c Plasma Lactic Acid Yonathan Calcium 7.6 L Iron TIBC Transferrin Ferritin Total Bilirubin Creatine Kinase Troponin I Albumin Urine Protein Urine Glucose (UA) Urine Blood Urine Bacteria Urine Legionella Ag 03/04/23 11:18 WBC RBC Hgb Hct Plt Count Neutrophils # Neutrophils # (Manual) Lymphocytes # Lymphocytes # (Manual) PT INR APTT ABG pH ABG pCO2 ABG pO2 ABG HCO3 ABG Total CO2 ABG O2 Saturation Sodium Potassium Carbon Dioxide BUN Creatinine Glucose POC Glucose (mg/dL) 306 H Hemoglobin A1c Plasma Lactic Acid Yonathan Calcium Iron TIBC Transferrin Ferritin Total Bilirubin Creatine Kinase Troponin I Albumin Urine Protein Urine Glucose (UA) Urine Blood Urine Bacteria Urine Legionella Ag Assessment and Plan Assessment: this is a 63-year-old gentlemanwho presented to the emergency department on 02/28/2022 since was found on the floor by his father and he had generalized weakness. Patient has been having recent cough and has been taken DayQuil and NyQuil. It seems while he was observation the patient had witnessed PEA cardiac arrest possibly about less than 5 minutes. He has Legionella pneumonia and continues to be severely confused. Altered mental status due to septic encephalopathy from pneumonia and metabolic encephalopathy in which had acute on chronic renal failure. Some component also due to medication effect (Propofol). Cannot rule out anoxic encephalopathy/brain injury from cardiopulmonary arrest. Witness cardiopulmonary arrest lasting less. Per ICU nurse, unsure exact time frame. Community acquire pneumonia/sepsis due to Legionalla Pneumonia Acute on chronic renal faliure and getting dialysis during this admission--trending down Acute hypoxemic respiratory failure requiring intubation DM Acute rhabdomyolysis--likely since was found down and trending down Plan: I ordered CT head. ICU team ordered EEG which will be completed tomorrow. I ordered TSH, ammonia level, Vitamin B12, folate and repeat CK level. I.D. is on board. Will defer the rest of medical management to the primary team and other specialist. The plan is discussed with his nurse. Thank you for the consultation Dr. Naylor will start neurology service tomorrow A.M. Time with Patient: Greater than 30
[2023-03-04 17:10] LABS: Glucose,Whole Blood 294 mg/dL (70-110)
[2023-03-04 17:34] LABS: Creatine Kinase 63 U/L (55-170)
--- NOTE | 2023-03-04 18:05 | CT ---
EXAMINATION TYPE: CT brain wo con CT DLP: 1154.4 mGycm, Automated exposure control for dose reduction was used. DATE OF EXAM: 03/04/2023 3:59 PM COMPARISON: None. CLINICAL INDICATION:Male, 62 years old with history of confusion, TECHNIQUE: Brain: Axial CT images of the brain were obtained with coronal and sagittal reformats created and rev iewed. Contrast used: None. Oral contrast used: None. FINDINGS: Brain: Extra-axial spaces: No abnormal extra-axial fluid collections. Ventricular system: Appear dilated in proportion to cerebral atrophy. Cerebral parenchyma: No acute intraparenchymal hemorrhage or mass effect. The harden-white matter int erface appears maintained. Mild/moderate generalized brain atrophy and areas of patchy white matter hypoattenuation likely due to chronic microvascular ischemic changes. . Cerebellum: No acute abnormality. Mass effect: No evidence of midline shift. Intracranial vasculature: Atherosclerotic calcifications of the larger arteries near the skull base. Soft tissues: No acute abnormality. Multiple dermal calcifications across the forehead. Calvarium/osseous structures: No evidence of acute calvarial fracture. Paranasal sinuses and mastoid air cells: Clear Visualized orbits: Orbital contents appear grossly intact. Prior lens surgery suggested bilaterally. Other: Partially seen oroenteric and ET tubes. MRI is more sensitive for detecting acute processes such as infarct, and may be considered if clinica lly warranted. IMPRESSION: 1. No acute intracranial CT abnormality. 2. Mild/moderate generalized brain atrophy and chronic microvascular ischemic changes.
[2023-03-05 00:14] LABS: Glucose,Whole Blood 356 mg/dL (70-110)
[2023-03-05] MEDS: INSULIN ASPART (NovoLOG) 100 UNIT/ML VIAL SQ SCH ×5 (01:20→18:03)
[2023-03-05] MEDS ORDERED: INSULIN DETEMIR (LEVEMIR) 100 UNIT/ML SYR SQ ONE (02:00)
[2023-03-05 03:56] LABS: HCT 30.9 % (39.0-53.0); HGB 9.6 gm/dL (13.0-17.5); Hypochromasia Slight; MCH 27.6 pg (25.0-35.0); MCHC 31.1 g/dL (31.0-37.0); MCV 88.8 fL (80.0-100.0); Mean Platelet Volume 11.9; Platelet Count 80 k/uL (150-450); RBC 3.48 m/uL (4.30-5.90); WBC 10.9 k/uL (3.8-10.6)
[2023-03-05 04:52] LABS: African American GFR (CKD) 22 (>60 ml/min/1.73 sqM); Anion Gap 14 mmol/L; Blood Urea Nitrogen 82 mg/dL (9-20); Calcium 7.6 mg/dL (8.4-10.2); Carbon Dioxide 17 mmol/L (22-30); Chloride 102 mmol/L (98-107); Glucose 398 mg/dL (74-99); Non-African American GFR(CKD) 19 (>60 ml/min/1.73 sqM); Sodium 133 mmol/L (137-145)
[2023-03-05 05:31] LABS: ABG Base Excess -3.7 mmol/L; ABG HCO3 20 mmol/L (21-25); ABG Oxygen Saturation 97.3 % (94-97); ABG PCO2 28 mmHg (35-45); ABG PH 7.46 (7.35-7.45); ABG PO2 86 mmHg (83-108); ABG TCO2 21 mmol/L (19-24)
[2023-03-05 05:48] LABS: Allen Test Performed? no
[2023-03-05 06:13] LABS: Glucose,Whole Blood 359 mg/dL (70-110)
[2023-03-05] MEDS: MIDODRINE 5 MG TAB PO SCH ×3 (06:54→18:01)
--- NOTE | 2023-03-05 07:46 | XR ---
EXAMINATION TYPE: XR chest 1V DATE OF EXAM: 03/05/2023 COMPARISON: 03/04/2023 HISTORY: SOB, Follow Up FINDINGS: Indwelling tubes and catheters are unchanged. No change in left lower lobe airspace consolidation with probable small effusion noted as well. Stabl e appearance of the cardio-mediastinal structures at this time. IMPRESSION: 1. Stable portable chest. Clinical correlation and follow up until resolution is recommended.
[2023-03-05] MEDS: PIPERACILLIN-TAZOBACTAM 3.375 GM in SODIUM CHLORIDE 0.9% 100 ML IVPB SCH (08:32)
[2023-03-05] MEDS: CHLORHEXIDINE GLUCONATE 15 ML CUP MUCOUS MEM SCH ×2 (08:33→20:42)
[2023-03-05] MEDS: PANTOPRAZOLE 40 MG/10 ML VIAL IVP SCH (08:33)
[2023-03-05] MEDS: allopurinoL 100 MG TAB PO SCH (08:33)
[2023-03-05] MEDS: NOREPINEPHRINE 4 MG in SODIUM CHLORIDE 0.9% 250 ML IV SCH (08:42)
[2023-03-05] MEDS ORDERED: FUROSEMIDE 10 MG/ML 10 ML VIAL IV STA (09:14)
--- NOTE | 2023-03-05 09:15 | P.PN ---
Subjective Patient is seen in follow-up for acute kidney injury on chronic kidney disease. Started on hemodialysis 03/01/2023. Oliguric. Intubated. On Levophed. Receiving tube feeds. Vital signs are stable. On vasopressor support. General: Resting in bed. HEENT: Intubated. LUNGS: Scattered rhonchi. HEART: Rate and Rhythm are regular. ABDOMEN: No distention. EXTREMITITES: No edema. Objective - Vital Signs Vital signs: Vital Signs Temp 97 F L 03/05/23 04:00 Pulse 70 03/05/23 07:00 Resp 24 03/05/23 07:00 BP 138/59 03/03/23 12:42 Pulse Ox 97 03/05/23 07:00 FiO2 50 03/05/23 08:41 Intake & Output 03/04/23 03/05/23 03/05/23 18:59 06:59 18:59 Intake Total 3020.387 2207.156 110.068 Output Total 40 30 0 Balance 2360.936 0104.156 110.068 Weight 70.9 kg Intake: IV 166 210 10 KVO 166 110 10 Piperacillin-Tazobactam 3 100 .375 gm In Sodium Chloride 0.9% 100 ml @ 25 mls/hr IVPB Q12HR [facility] Rx #:[id number] Intake, IV Titration 234.279 219.156 31.068 Amount Norepinephrine 4 mg In 136.073 56.984 31.068 Sodium Chloride 0.9% 250 ml @ 0.03 MCG/KG/MIN 8.14 mls/hr IV .Q24H [facility] Rx#: [id number] propofoL 1,000 mg In 98.206 162.172 Empty Bag 1 bag @ 15 MCG/ KG/MIN 6.409 mls/hr IV . [id number] [facility] Rx#:[id number] Oral 180 Tube Feeding 897 759 69 Other 90 90 Output: Urine 40 30 0 Other: Voiding Method Indwelling Catheter Indwelling Catheter # Bowel Movements 1 1 ABP, PAP, CO, CI - Last Documented Arterial Blood Pressure 96/59 - Labs CBC & Chem 7: 03/05/23 03:45 03/05/23 03:45 Labs: Abnormal Lab Results - Last 24 Hours (Table) 03/04/23 03/04/23 03/04/23 Range/Units 11:18 16:54 17:08 WBC (3.8-10.6) k/uL RBC (4.30-5.90) m/uL Hgb (13.0-17.5) gm/dL Hct (39.0-53.0) % Plt Count (150-450) k/uL ABG pH (7.35-7.45) ABG pCO2 (35-45) mmHg ABG HCO3 (21-25) mmol/L ABG O2 Saturation (94-97) % Sodium (137-145) mmol/L Carbon Dioxide (22-30) mmol/L BUN (9-20) mg/dL Creatinine (0.66-1.25) mg/dL Glucose (74-99) mg/dL POC Glucose (mg/dL) 306 H 294 H (70-110) mg/dL Calcium (8.4-10.2) mg/dL Vitamin B12 1213.0 H (200.0-944.0) pg/mL 03/05/23 03/05/23 03/05/23 Range/Units 00:12 03:45 03:45 WBC 10.9 H (3.8-10.6) k/uL RBC 3.48 L (4.30-5.90) m/uL Hgb 9.6 L (13.0-17.5) gm/dL Hct 30.9 L (39.0-53.0) % Plt Count 80 L (150-450) k/uL ABG pH (7.35-7.45) ABG pCO2 (35-45) mmHg ABG HCO3 (21-25) mmol/L ABG O2 Saturation (94-97) % Sodium 133 L (137-145) mmol/L Carbon Dioxide 17 L (22-30) mmol/L BUN 82 H (9-20) mg/dL Creatinine 3.27 H (0.66-1.25) mg/dL Glucose 398 H (74-99) mg/dL POC Glucose (mg/dL) 356 H (70-110) mg/dL Calcium 7.6 L (8.4-10.2) mg/dL Vitamin B12 (200.0-944.0) pg/mL 03/05/23 03/05/23 Range/Units 05:29 06:11 WBC (3.8-10.6) k/uL RBC (4.30-5.90) m/uL Hgb (13.0-17.5) gm/dL Hct (39.0-53.0) % Plt Count (150-450) k/uL ABG pH 7.46 H (7.35-7.45) ABG pCO2 28 L (35-45) mmHg ABG HCO3 20 L (21-25) mmol/L ABG O2 Saturation 97.3 H (94-97) % Sodium (137-145) mmol/L Carbon Dioxide (22-30) mmol/L BUN (9-20) mg/dL Creatinine (0.66-1.25) mg/dL Glucose (74-99) mg/dL POC Glucose (mg/dL) 359 H (70-110) mg/dL Calcium (8.4-10.2) mg/dL Vitamin B12 (200.0-944.0) pg/mL Microbiology - Last 24 Hours (Table) 02/28/23 20:10 Legionella Culture - Preliminary Sputum Assessment and Plan Plan: Assessment: 1. Acute kidney injury secondary to ATN secondary to cardiopulmonary arrest. Started on hemodialysis 03/01/2023. Has femoral catheter. Oliguric. 2. Cardiopulmonary arrest. 3. 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 CKD appears to have progressed with creatinine in the range of 3.1-3.4 in April and July 2022. 4. Chronic kidney disease mineral bone disease maintained on Calcitrol. 5. Diabetes mellitus. 6. Shock maintained on Levophed. 7. Anemia of chronic kidney disease. Hypertension noted. Plan: Hemodialysis today. Lasix 80 mg IV once today. Check phosphorus level. Add Aranesp. Maintain midodrine. Wean FiO2 and vasopressors. Receiving tube feeds.
--- NOTE | 2023-03-05 09:29 | P.PN ---
Subjective Progress Note Date: 03/05/23 The patient is a 62-year-old male who presented to the hospital after mechanical fall. The patient was on the observation unit when he had a PEA arrest with approximate downtime of 5 minutes. He has remained sedated on the ventilator. Attempted sedation holiday yesterday. GENERAL: Ill-appearing, currently sedated on ventilator. NECK: Supple without JVD or thyromegaly. LUNGS: Breath sounds diminished to auscultation bilaterally. Respiration equal and unlabored. No wheezes, rales or rhonchi. HEART: Regular rate and rhythm without murmurs, rubs or gallops. S1 and S2 heard. EXTREMITIES: Normal range of motion, no edema. No clubbing or cyanosis. No peripheral pulses. Diabetic/vascular also is noted on bilateral great toes. TELEMETRY: Sinus rhythm LABS: WBC 10.9, hemoglobin 9.6, hematocrit 30.9, platelets 80, sodium 133, potassium 4.0, BUN 82, creatinine 3.27 IMPRESSION: Status post cardiac arrest Acute hypoxic respiratory failure Acute renal failure, on dialysis Cardiomyopathy with severe LV dysfunction Cardiogenic shock History of diabetes PLAN: Continue with sedation holiday and weaning from ventilator as tolerated Initiate cardiomyopathy medications once weaned off of vasopressors Further recommendations to be based upon clinical course I am dictating on behalf of Dr Los Bond's history/physical and assessment/plan. Objective - Vital Signs Vital signs: Vital Signs Temp 97 F L 03/05/23 04:00 Pulse 70 03/05/23 07:00 Resp 24 03/05/23 07:00 BP 138/59 03/03/23 12:42 Pulse Ox 97 03/05/23 07:00 FiO2 50 03/05/23 08:41 Intake & Output 03/04/23 03/05/23 03/05/23 18:59 06:59 18:59 Intake Total 3089.890 1557.156 110.068 Output Total 40 30 0 Balance 9935.198 9564.156 110.068 Weight 70.9 kg Intake: IV 166 210 10 KVO 166 110 10 Piperacillin-Tazobactam 3 100 .375 gm In Sodium Chloride 0.9% 100 ml @ 25 mls/hr IVPB Q12HR [facility] Rx #:[id number] Intake, IV Titration 234.279 219.156 31.068 Amount Norepinephrine 4 mg In 136.073 56.984 31.068 Sodium Chloride 0.9% 250 ml @ 0.03 MCG/KG/MIN 8.14 mls/hr IV .Q24H [facility] Rx#: [id number] propofoL 1,000 mg In 98.206 162.172 Empty Bag 1 bag @ 15 MCG/ KG/MIN 6.409 mls/hr IV . [id number] [facility] Rx#:[id number] Oral 180 Tube Feeding 897 759 69 Other 90 90 Output: Urine 40 30 0 Other: Voiding Method Indwelling Catheter Indwelling Catheter # Bowel Movements 1 1 ABP, PAP, CO, CI - Last Documented Arterial Blood Pressure 96/59 - Labs CBC & Chem 7: 03/05/23 03:45 03/05/23 03:45 Labs: Abnormal Lab Results - Last 24 Hours (Table) 03/04/23 03/04/23 03/04/23 Range/Units 11:18 16:54 17:08 WBC (3.8-10.6) k/uL RBC (4.30-5.90) m/uL Hgb (13.0-17.5) gm/dL Hct (39.0-53.0) % Plt Count (150-450) k/uL ABG pH (7.35-7.45) ABG pCO2 (35-45) mmHg ABG HCO3 (21-25) mmol/L ABG O2 Saturation (94-97) % Sodium (137-145) mmol/L Carbon Dioxide (22-30) mmol/L BUN (9-20) mg/dL Creatinine (0.66-1.25) mg/dL Glucose (74-99) mg/dL POC Glucose (mg/dL) 306 H 294 H (70-110) mg/dL Calcium (8.4-10.2) mg/dL Vitamin B12 1213.0 H (200.0-944.0) pg/mL 03/05/23 03/05/23 03/05/23 Range/Units 00:12 03:45 03:45 WBC 10.9 H (3.8-10.6) k/uL RBC 3.48 L (4.30-5.90) m/uL Hgb 9.6 L (13.0-17.5) gm/dL Hct 30.9 L (39.0-53.0) % Plt Count 80 L (150-450) k/uL ABG pH (7.35-7.45) ABG pCO2 (35-45) mmHg ABG HCO3 (21-25) mmol/L ABG O2 Saturation (94-97) % Sodium 133 L (137-145) mmol/L Carbon Dioxide 17 L (22-30) mmol/L BUN 82 H (9-20) mg/dL Creatinine 3.27 H (0.66-1.25) mg/dL Glucose 398 H (74-99) mg/dL POC Glucose (mg/dL) 356 H (70-110) mg/dL Calcium 7.6 L (8.4-10.2) mg/dL Vitamin B12 (200.0-944.0) pg/mL 03/05/23 03/05/23 Range/Units 05:29 06:11 WBC (3.8-10.6) k/uL RBC (4.30-5.90) m/uL Hgb (13.0-17.5) gm/dL Hct (39.0-53.0) % Plt Count (150-450) k/uL ABG pH 7.46 H (7.35-7.45) ABG pCO2 28 L (35-45) mmHg ABG HCO3 20 L (21-25) mmol/L ABG O2 Saturation 97.3 H (94-97) % Sodium (137-145) mmol/L Carbon Dioxide (22-30) mmol/L BUN (9-20) mg/dL Creatinine (0.66-1.25) mg/dL Glucose (74-99) mg/dL POC Glucose (mg/dL) 359 H (70-110) mg/dL Calcium (8.4-10.2) mg/dL Vitamin B12 (200.0-944.0) pg/mL Microbiology - Last 24 Hours (Table) 02/28/23 20:10 Legionella Culture - Preliminary Sputum
--- NOTE | 2023-03-05 09:41 | P.PN ---
Subjective Progress Note Date: 03/05/23 I am seeing this patient in new consultation today 03/01/2023 in the intensive care unit, after the patient had a witnessed PEA cardiac arrest while on the Observation unit. Patient is a 62-year-old white male with past medical history significant for diabetes mellitus, diabetic foot ulcers, hypertension, hyperlipidemia, iron deficiency anemia, chronic kidney disease. Patient is currently sedated and intubated on the mechanical ventilator. He was admitted yesterday morning, after being found on the floor by his father. Apparently, the patient denied hitting his head or losing consciousness. Patient does have diabetes mellitus, and his blood sugars had been running high at home. Chest x- ray on admission showed a left lower lobe infiltrate consistent with community acquired pneumonia. Patient did have a fever with a T-max of 100.7F. Apparently, after being admitted to the observation unt, the patient was noted to have low blood pressure. The patient was given 1 L normal saline bolus and 5 amps sodium bicarb. Soon after, the patient had a cardiac arrest. Presenting rhythm was PEA. Patient had a limited downtime of less than 5 minutes. He received 1 mg of epinephrine. Rapid sequence intubation was performed. The patient was then transferred to the intensive care unit. Dr. Lacy did come in and place a left subclavian central line catheter and a right wrist arterial line. Patient was also noted to be in acute renal failure. He did have a right femoral hemodialysis catheter placed earlier, and is currently undergoing emergent hemodialysis. Patient is currently in the intensive care unit, intubated to the mechanical ventilator. He is sedated on propofol which is currently infusing at 40 mcg/kg/m. He is synchronous with the mechanical ventilator. Postintubation ABG shows a pO2 greater than 400, pCO2 27, pH of 7.43, this was done on ventilator settings of assist control, respiratory rate 22, tidal volume 500, FiO2 100%, and PEEP of 5. Patient's FiO2 was dropped to 50%. Peak pressures 27. Post intubation chest x-ray shows the endotracheal tube 4 cm above the anika. Oral gastric tube could be advanced 5 cm. There is a persistent left lower lobe infiltrate. Most recent CBC from yesterday evening showed a WBC count of 7.8, hemoglobin 7.1, hematocrit 22.7, platelets 120. No obvious acute blood loss was noted. Most recent available BMP shows sodium 140, potassium 4.6, chloride 107, serum bicarb 15, BUN 107, creatinine 7.82, glucose 282. Acetone negative. LFTs not elevated. CPK 1240. Currently, 3 A sodium bicarb in D5W is infusing at 100 ML's per hour. There is also normal saline infusing at 130 ML's per hour. Patient is currently anuric. Troponins elevated at 0.457, 0.388, and 0.422 respectively. ECG shows normal sinus rhythm without any obvious acute ischemic changes. Urinalysis not concerning for UTI. Lactic acid level was elevated at 4 is down 1.6. Negative for influenza, RSV, COVID- 19. Patient was started on empiric antibiotics in the form of ceftriaxone and azithromycin. Currently afebrile. Patient's condition is currently critical, moderate in the intensive care unit. Progress note dated 03/02/2023. 62-year-old male who was seen in consultation yesterday, status post cardiopulmonary arrest. The patient had a witnessed PEA arrest. He had a very short resuscitation time of about 5 minutes. The patient was transferred to the intensive care unit. I came into the hospital, on Sunday evening, and placed a right radial art line, and a left subclavian triple-lumen catheter. Remains in the intensive care unit, on the ventilator. Currently, the patient is on the volume assist control, rate 22, tidal volume 500, FiO2 50% PEEP of 5. Blood gases show pO2 of 97, pCO2 25, and pH is 7.53. The patient is receiving saline at 100 mL an hour, propofol at 40 mcg/kg/m, norepinephrine at 7.7 mcg/m, and vital high protein at 35 mL an hour, with a goal of 54 mL an hour. White count 12.1, hemoglobin 8.2, hematocrit 25.1, and platelet count 139,000. Sodium is 137, potassium 3.6, chlorides 105, CO2 18, anion gap 14, BUN 73, and creatinine 5.21. Calcium is 7.1. Today, is likely a dialysis day. Culture information is pending or negative. Chest x-ray continues to show a consolidative process, in the left midlung left lower lobe area. Progress note dated 03/03/2023. 62-year-old male who is seen today in room 264. The patient remains on mechanical ventilator, having sustained a cardiopulmonary arrest. Ventilator settings include the volume assist control, rate 22, tidal volume 500, FiO2 50%, and PEEP of 5. Arterial blood gases show pO2 38, pCO2 34, and the pH is 7.45. The patient remains on norepinephrine at 5 mcg/m, propofol at 30 mcg/kg/m, and saline at 100 mL an hour. The patient's also getting vital high protein at 69 mL an hour, which is goal. White count is 11, hemoglobin 8.3, hematocrit 25.3, and platelet count 109,000. Sodium 134, potassium 3.2, chlorides 103, CO2 19, BUN 56, and creatinine 3.35. Microbiologic sampling as as far negative. Chest x-ray shows extensive infiltrate, and left midlung and left lower lobe area. The patient continues on Zosyn and Levaquin. Yesterday, we attempted a daily interruption of sedation, and the patient did not do well. We will attempt that again today. Progress note dated 03/04/2023. 62-year-old male, seen again in room 264. The patient remains on the mechanical ventilator. He is status post brief cardiopulmonary arrest, with cardiop ulmonary resuscitation, and return of spontaneous circulation. The cardiac arrest was brief, lasting maybe 5-7 minutes. Current ventilator settings include the volume assist control, rate 22, tidal volume 500, FiO2 50%, and PEEP of 5. Blood gases show pO2 of 73, pCO2 31, and pH 7.51. The patient continues on propofol at 35 mcg/kg/m, norepinephrine at 4 mcg/m, and saline at KVO. The patient is getting vital high protein at 69 mL an hour, which is goal. His Legionella urinary antigen was positive. His chest x-ray continues to show a left-sided infiltrate. He did have hemodialysis yesterday, and 1 L of fluid was removed. White count 10.4, hemoglobin 8.6, hematocrit 26.8, and platelet count 82,000. Sodium 133, potassium 3.8, chlorides 102, CO2 21, BUN 52, creatinine 2.55. Chest x-ray shows a patchy infiltrate, involving the left midlung and left lower lobe area. The chest x-ray in my opinion is essentially unchanged. On 03/05/2023, I'm seeing the patient in the intensive care unit. The patient is currently intubated on a mechanical ventilator. The patient is post cardiac arrest that occurred on 02/28/2023. The patient presented to us with an acute kidney injury on top of chronic kidney failure. He was profoundly acidotic at the time of admission and the serum bicarb was down to 10. No significant hyperkalemia. He was admitted to the medical/he had a cardiac arrest. His down time was estimated to be more than 5 minutes. He received at least 5 minutes of CPR and there was return of spontaneous circulation. His echocardiogram shows severely and. Impaired LV function with an EF of around 20-25%. Since then, the patient has not had any major cardiac events. His cardiac rhythm is sinus. He is currently undergoing hemodialysis for end-stage renal disease. Note that the patient has sustained an acute kidney injury on top of his chronic kidney failure. His baseline GFR was 18 and the patient has chronic stage IV kidney disease. He has a hemodialysis catheter in his right femoral. He is being dialyzed periodically and mid level developer on the case. Meanwhile, he remains intubated on a mechanical ventilator. His calm and comfortable on propofol which is running at 20 mcg/kg/m. He is receiving daily sedation holidays. He was not felt to be neurologically awake enough to be extubated. His most recent CAT scan of the brain was done on 03/04/2023 and the patient was not found to have an acute abnormalities. The patient had mild to moderate generalized brain atrophy. No edema. No stroke. Neurology is on the case and the patient was given an EGD today and there is also still pending for now. Hemodynamically, the patient is requiring low-dose norepinephrine at 0.04 mcg/kg/m. He is afebrile. His most recent chest x-ray that was done today showed extensive consolidation of the left lower lobe and the lingula. Legionella urine antigen was positive and this is likely a Legionella pneumonia. This was present on earlier chest x-rays that dates back to 02/28/2023. It is likely that the patient presented to us with a pneumonia. Possibility of a aspiration pneumonia at a time of his cardiac arrest cannot be completely ruled out. His sputum is negative. Blood cultures negative. Antibiotic coverage is a combination of Zosyn and Levaquin. He is diabetic on Levemir insulin 20 units and is also taking NovoLog 7 units 3 times a day. Enteral feeding for nutritional support and the patient is currently on vital HP at at the rate of 69 mL an hour. He is afebrile. No other significant events overnight. His current ventilator s ettings include an assist-control mode rate of 24, tidal volume of 500, FiO2 of 50% with a PEEP of 5. The blood gas shows a pH of 7.46 with a pCO2 of 28 and pO2 of 86. Objective - Vital Signs Vital signs: Vital Signs Temp 97 F L 03/05/23 04:00 Pulse 70 03/05/23 07:00 Resp 24 03/05/23 07:00 BP 138/59 03/03/23 12:42 Pulse Ox 97 03/05/23 07:00 FiO2 50 03/05/23 08:41 Intake & Output 03/04/23 03/05/23 03/05/23 18:59 06:59 18:59 Intake Total 7760.155 2880.156 404.399 Output Total 40 30 25 Balance 2357.526 3115.156 379.399 Weight 70.9 kg Intake: IV 166 210 130 KVO 166 110 30 Piperacillin-Tazobactam 3 100 100 .375 gm In Sodium Chloride 0.9% 100 ml @ 25 mls/hr IVPB Q12HR [facility] Rx #:[id number] Intake, IV Titration 234.279 219.156 37.399 Amount Norepinephrine 4 mg In 136.073 56.984 37.399 Sodium Chloride 0.9% 250 ml @ 0.03 MCG/KG/MIN 8.14 mls/hr IV .Q24H [facility] Rx#: [id number] propofoL 1,000 mg In 98.206 162.172 Empty Bag 1 bag @ 15 MCG/ KG/MIN 6.409 mls/hr IV . [id number] [facility] Rx#:[id number] Oral 180 Tube Feeding 897 759 207 Other 90 90 30 Output: Urine 40 30 25 Other: Voiding Method Indwelling Catheter Indwelling Catheter # Bowel Movements 1 1 ABP, PAP, CO, CI - Last Documented Arterial Blood Pressure 96/59 - Exam No acute distress, sedated with propofol, with an orally placed endotracheal tube and NG tube. The patient is currently sedated on propofol. Calm and comfortable. Successful mechanical ventilator. Head exam was generally normal. There was no scleral icterus or corneal arcus. Mucous membranes were moist. HEENT examination is grossly unremarkable. Neck supple. Full range of motion. No adenopathy thyromegaly or neck vein distention. Cardiovascular examination reveals regular rhythm rate. S1-S2 normal. No S3 or S4. No discernible murmur noted. Heart sounds are distant. Lungs reveal bilateral rhonchi. No wheezes or crackles. Breath sounds are equal. Abdomen soft bowel sounds are heard. No masses or tenderness. The patient has a dialysis catheter, temperature dialysis catheter in his right femoral vein. Extremities are intact. No cyanosis clubbing or edema. Skin is without rash or lesion. Neurologic examination cannot be evaluated at this time. - Labs CBC & Chem 7: 03/05/23 03:45 03/05/23 03:45 Labs: Abnormal Lab Results - Last 24 Hours (Table) 03/04/23 03/04/23 03/04/23 Range/Units 11:18 16:54 17:08 WBC (3.8-10.6) k/uL RBC (4.30-5.90) m/uL Hgb (13.0-17.5) gm/dL Hct (39.0-53.0) % Plt Count (150-450) k/uL ABG pH (7.35-7.45) ABG pCO2 (35-45) mmHg ABG HCO3 (21-25) mmol/L ABG O2 Saturation (94-97) % Sodium (137-145) mmol/L Carbon Dioxide (22-30) mmol/L BUN (9-20) mg/dL Creatinine (0.66-1.25) mg/dL Glucose (74-99) mg/dL POC Glucose (mg/dL) 306 H 294 H (70-110) mg/dL Calcium (8.4-10.2) mg/dL Vitamin B12 1213.0 H (200.0-944.0) pg/mL 03/05/23 03/05/23 03/05/23 Range/Units 00:12 03:45 03:45 WBC 10.9 H (3.8-10.6) k/uL RBC 3.48 L (4.30-5.90) m/uL Hgb 9.6 L (13.0-17.5) gm/dL Hct 30.9 L (39.0-53.0) % Plt Count 80 L (150-450) k/uL ABG pH (7.35-7.45) ABG pCO2 (35-45) mmHg ABG HCO3 (21-25) mmol/L ABG O2 Saturation (94-97) % Sodium 133 L (137-145) mmol/L Carbon Dioxide 17 L (22-30) mmol/L BUN 82 H (9-20) mg/dL Creatinine 3.27 H (0.66-1.25) mg/dL Glucose 398 H (74-99) mg/dL POC Glucose (mg/dL) 356 H (70-110) mg/dL Calcium 7.6 L (8.4-10.2) mg/dL Vitamin B12 (200.0-944.0) pg/mL 03/05/23 03/05/23 Range/Units 05:29 06:11 WBC (3.8-10.6) k/uL RBC (4.30-5.90) m/uL Hgb (13.0-17.5) gm/dL Hct (39.0-53.0) % Plt Count (150-450) k/uL ABG pH 7.46 H (7.35-7.45) ABG pCO2 28 L (35-45) mmHg ABG HCO3 20 L (21-25) mmol/L ABG O2 Saturation 97.3 H (94-97) % Sodium (137-145) mmol/L Carbon Dioxide (22-30) mmol/L BUN (9-20) mg/dL Creatinine (0.66-1.25) mg/dL Glucose (74-99) mg/dL POC Glucose (mg/dL) 359 H (70-110) mg/dL Calcium (8.4-10.2) mg/dL Vitamin B12 (200.0-944.0) pg/mL Microbiology - Last 24 Hours (Table) 02/28/23 20:10 Legionella Culture - Preliminary Sputum Assessment and Plan Plan: Witnessed PEA cardiac arrest with a limited down time of less than 5 minutes. The cardiac arrest occurred on 02/28/2023. Patient remains intubated on mechanical ventilator. CAT scan of the brain that was done on 03/04/2023 showed no acute abnormalities. Patient is receiving daily sedation holidays. Acute hypoxemic respiratory failure, requiring intubation and mechanical ventilation. Left lower lobe community-acquired pneumonia and sepsis, secondary to Legionella pneumophila. Severe cardiomyopathy with an ejection fraction of 20-25% Hypotension, probably due to a combination of septic and cardiogenic as the patient has impaired LV function. The patient is currently on low-dose norepinephrine Metabolic anion gap acidosis, secondary to lactic acidosis and sepsis. Chronic stage IV kidney disease Acute on chronic kidney disease, currently receiving hemodialysis. Acute rhabdomyolysis, with mildly elevated CPK. Elevated troponins, likely related to supply/demand mismatch. Anemia of chronic disease, hemoglobin lower than baseline. Diabetes mellitus, insulin-dependent. Hyperlipidemia Diarrhea, patient has a fecal management system in Place. Plan Continue ventilator support. We'll change the respiratory rate down to 16 Complete hemodialysis today Continue Levaquin and may discontinue the Zosyn Check stool for C. diff colitis Continue enteral feeding for nutritional support Continue pressors and wean it off slowly Perform a sedation holiday once dialysis is completed and assess mental status. Do not perform any weaning trials. We'll check a weaning parameter on Lasix his mental status is appropriate. Condition is critical. The family will be updated on his condition. We'll continue to follow make further recommendations based on his progress. His evaluation was done in more than 30 minutes. Time with Patient: Greater than 30
--- NOTE | 2023-03-05 11:08 | P.PN ---
Subjective Progress Note Date: 03/05/23 62 year old M with PMH of CKD, hypertension, gout, diabetes mellitus presents to the ED after being found down. Patient is lethargic and sleepy and majority of history is provided by his father. Patient is single, lives alone, takes care of his ADLs and IADL's and normally very active. Father states he has been dealing with a cold over the past week. Symptoms include cough, rhinorrhea, malaise, diarrhea, nausea and vomiting, poor appetite. Last time seen normal was yesterday at 6:30PM when he went to bed. Found down this morning by his father, apparently tried to use the washroom last night, unable to make it to bed, laid on the floor all night. EMS was subsequently called. In the ED, he underwent extensive workup. Tmax 100.7F. HR in the 90s. BP 92/47. 92% on RA. CBC showed leukocytosis of 11.1, hemoglobin of 8.3 and platelet count 142. INR 1.2 CMP showed potassium of 5.4, bicarb 10, BUN 113, creatinine 8.47, glucose 324, total bilirubin 2. Lactic acid 2.1. CPK 1240. Troponin 0.457. Acetone negative. Influenza, RSV, COVID-19 negative. Chest x-ray reviewed by me showed large left sided PNA. EKG showed sinus rhythm with no ST elevation. CODE BLUE was called yesterday. Patient was found to be in PEA arrest. He was given multiple amps of sodium bicarb and epinephrine. Patient was intubated. ROSC was achieved and he was transferred to the ICU. Dr. Lacy, Dr. Juarez and Dr. Simon was contacted. Emergent hemodialysis access was obtained and patient was started on dialysis. 03/01 Intubated in the ICU. Levophed running at 0.07 mcg/kg/hr. Currently on Rocephin and Azithromycin for antibiotics. 03/02 Intubated in the ICU. Levophed running at 0.11 mcg/kg/hr. Legionella Ag +, started on Levaquin and started on Zosyn by ID, Rocephin/Azithromcyin discontinued. Echocardiogram shows EF 20-25% with moderate TR/MR thus Cardiology is consulted. 03/03 Intubated in the ICU. Levophed running at 0.08 mcg/kg/hr. Antibiotics include Levaquin and Zosyn for treatment of Legionella and anaerobic coverage. 03/04 Intubated in the ICU. Did not do too well with sedation holiday yesterday. Levophed running at 0.06 mcg/kg/hr. Antibiotics include Levaquin and Zosyn for treatment of Legionella and anaerobic coverage. 03/05 Patient was seen and examined. Intubated in the ICU. Underwent sedation holiday last 2 days, not ready for extubation. Currently on propofol at 30 mcg/kg/min. Levophed running at 0.03 mcg/kg/hr. Antibiotics include Levaquin and Zosyn for treatment of Legionella and anaerobic coverage. CBC WBC 10.9, Hg 9.6, Plt 80. ABG pH 7.46, pCO2 28. BMP Na 133, bicarb 17, BUN 82, Cr 3.27, glucose 398, Ca 7.6. CXR shows left sided opacities, similar to previous CXRs. POC glucose running persistently in the 300s. Neurology consulted to evaluated for anoxic brain injury, CT head ordered which shows chronic microvascular ischemic changes along with EEG. General: Intubated Derm: warm, dry Head: atraumatic, normocephalic, symmetric Eyes: EOMI, no lid lag, anicteric sclera Mouth: no lip lesion, dry membranes moist Cardiovascular: S1S2 tachycardic, no murmur Lungs: Coarse BS bilateral, no rhonchi, no rales , no accessory muscle use Abdominal: soft, nontender to palpation, + BS Ext: no gross muscle atrophy, no edema, no contractures Neuro: Unable to perform Psych: Intubated PEA arrest Acute hypoxic respiratory failure Septic shock related to Legionaires PNA Acute kidney injury on chronic kidney disease Diabetes mellitus with hyperglycemia Troponin elevation HFrEF Acute metabolic encephalopathy Rhabdomyolysis Normocytic anemia Thrombocytopenia Chronic conditions: Hypertension, gout Resolved: Metabolic acidosis, Hyperkalemia, Hypokalemia Based on my assessment of this patient, this patient meets a high complexity level of care. Patient has an acute diagnosis of sepsis related to community acquired PNA that poses a threat to life or bodily function. Also has ROSANGELA on CKD with severe acidosis and hyperkalemia likely requiring dialysis. Complicated with troponin e levation and rhabomyolysis. PEA arrest: Status post ROSC 02/28. Acute hypoxic respiratory failure: Ventilator support. Pulm toileting. Septic shock related to Legionaries pneumonia: Hold Coreg. Legionella Ag +. Levaquin 500 mg IV Q48H, Zosyn 3.375 g IV TID started 03/02. Telemetry monitoring. Titrate Levophed to maintain MAP > 65. Pulmonology and ID on board. Acute kidney injury on chronic kidney disease: Multifactorial. Sepsis. Dehydration due to N/V, poor appetite and diarrhea. Underwent emergent HD on 02/28. Nephrology on board. Plans for HD on MW schedule. Diabetes mellitus with hyperglycemia: Blood glucose in the 300s. Switch JOE to MISS Q6H. Added Novolog 7 units TID and Levemir 20 units QD. Troponin elevation: Likely due to demand ischemia. Trop flat. Echocardiogram as above. Cardiology consult. HFrEF: EF 20-25%. Cardiology consulted. Acute metabolic encephalopathy: Likely related to above. Fall precautions. CT head negative. PT and OT consult when able to participate. Rhabdomyolysis: Hold simvastatin. IV hydration as above. Normocytic anemia: Likely AOCD due to CKD. Transfuse if Hg < 7. Thrombocytopenia: HIT panel. DC Heparin products. Father is the decision maker. FULL CODE. SCDs for DVT prophylaxis. Protonix 40 mg IV QD for GI prophylaxis. I have reviewed the following design consultant notes: Pulm, ID, Neuro, Nephro note. I have reviewed the results of the following tests: As above. I have ordered the following tests: CBC and BMP ordered for tomorrow morning. HIT panel. I have discussed the care of this patient with the following independent historian: I have independently interpreted the following test below: CXR as above. I have discussed the management of this patient with the following physician: This patient meets a high level of care for the following reasons: Patient requires IV vasopressors which requires intensive monitoring of hemodynamics. Patient requires IV anesthetics to be maintained on the ventilator which requires intensive monitoring of hemodynamics and respiratory toxicity. Patient requires adjustments in insulin which requires intensive monitoring for hypoglycemic episodes. Objective - Vital Signs Vital signs: Vital Signs Temp 97 F L 03/05/23 04:00 Pulse 70 03/05/23 07:00 Resp 24 03/05/23 07:00 BP 138/59 03/03/23 12:42 Pulse Ox 97 03/05/23 07:00 FiO2 50 03/05/23 07:00 Intake & Output 03/04/23 03/05/23 03/05/23 18:59 06:59 18:59 Intake Total 3669.303 6689.156 79 Output Total 40 30 0 Balance 8479.016 6174.156 79 Weight 70.9 kg Intake: IV 166 210 10 KVO 166 110 10 Piperacillin-Tazobactam 3 100 .375 gm In Sodium Chloride 0.9% 100 ml @ 25 mls/hr IVPB Q12HR [facility] Rx #:[id number] Intake, IV Titration 234.279 219.156 Amount Norepinephrine 4 mg In 136.073 56.984 Sodium Chloride 0.9% 250 ml @ 0.03 MCG/KG/MIN 8.14 mls/hr IV .Q24H [facility] Rx#: [id number] propofoL 1,000 mg In 98.206 162.172 Empty Bag 1 bag @ 15 MCG/ KG/MIN 6.409 mls/hr IV . [id number] [facility] Rx#:[id number] Oral 180 Tube Feeding 897 759 69 Other 90 90 Output: Urine 40 30 0 Other: Voiding Method Indwelling Catheter Indwelling Catheter # Bowel Movements 1 1 ABP, PAP, CO, CI - Last Documented Arterial Blood Pressure 96/59 - Labs CBC & Chem 7: 03/05/23 03:45 03/05/23 03:45 Labs: Abnormal Lab Results - Last 24 Hours (Table) 03/04/23 03/04/23 03/04/23 Range/Units 11:18 16:54 17:08 WBC (3.8-10.6) k/uL RBC (4.30-5.90) m/uL Hgb (13.0-17.5) gm/dL Hct (39.0-53.0) % Plt Count (150-450) k/uL ABG pH (7.35-7.45) ABG pCO2 (35-45) mmHg ABG HCO3 (21-25) mmol/L ABG O2 Saturation (94-97) % Sodium (137-145) mmol/L Carbon Dioxide (22-30) mmol/L BUN (9-20) mg/dL Creatinine (0.66-1.25) mg/dL Glucose (74-99) mg/dL POC Glucose (mg/dL) 306 H 294 H (70-110) mg/dL Calcium (8.4-10.2) mg/dL Vitamin B12 1213.0 H (200.0-944.0) pg/mL 03/05/23 03/05/23 03/05/23 Range/Units 00:12 03:45 03:45 WBC 10.9 H (3.8-10.6) k/uL RBC 3.48 L (4.30-5.90) m/uL Hgb 9.6 L (13.0-17.5) gm/dL Hct 30.9 L (39.0-53.0) % Plt Count 80 L (150-450) k/uL ABG pH (7.35-7.45) ABG pCO2 (35-45) mmHg ABG HCO3 (21-25) mmol/L ABG O2 Saturation (94-97) % Sodium 133 L (137-145) mmol/L Carbon Dioxide 17 L (22-30) mmol/L BUN 82 H (9-20) mg/dL Creatinine 3.27 H (0.66-1.25) mg/dL Glucose 398 H (74-99) mg/dL POC Glucose (mg/dL) 356 H (70-110) mg/dL Calcium 7.6 L (8.4-10.2) mg/dL Vitamin B12 (200.0-944.0) pg/mL 03/05/23 03/05/23 Range/Units 05:29 06:11 WBC (3.8-10.6) k/uL RBC (4.30-5.90) m/uL Hgb (13.0-17.5) gm/dL Hct (39.0-53.0) % Plt Count (150-450) k/uL ABG pH 7.46 H (7.35-7.45) ABG pCO2 28 L (35-45) mmHg ABG HCO3 20 L (21-25) mmol/L ABG O2 Saturation 97.3 H (94-97) % Sodium (137-145) mmol/L Carbon Dioxide (22-30) mmol/L BUN (9-20) mg/dL Creatinine (0.66-1.25) mg/dL Glucose (74-99) mg/dL POC Glucose (mg/dL) 359 H (70-110) mg/dL Calcium (8.4-10.2) mg/dL Vitamin B12 (200.0-944.0) pg/mL Microbiology - Last 24 Hours (Table) 02/28/23 20:10 Legionella Culture - Preliminary Sputum
--- NOTE | 2023-03-05 11:16 | EEG ---
ELECTROENCEPHALOGRAM REPORT PREAMBLE: This is a 62-year-old male with altered mental status. The patient is on ventilator. CURRENT MEDICATIONS: Propofol 10 mcg, zyloprim, heparin, NovoLog, levothyroxine, ProAmatine, norepinephrine, Protonix, and Zosyn. EEG FINDINGS: This is a 21-channel digital EEG recorded with video component, utilizing 10/20 international system with referential and bipolar montages. Background consists of poorly developed and regulated, mixed frequencies of low-voltage theta, intermixed with delta activity seen in bihemispheric region. Background does not seem to be reactive to eye opening and closing. Photic driving response was not seen. Different stages of sleep were not clearly seen. No focal or generalized epileptiform activity was seen. IMPRESSION: This is an abnormal EEG due to background slowing of moderate to severe degree. This is suggestive of generalized cerebral dysfunction as can be seen with toxic metabolic encephalopathy or related to diffuse structural brain abnormality. Clinical correlation is recommended. No epileptiform activity was seen. MMODL / IJN: [id number] /
--- NOTE | 2023-03-05 11:26 | P.PN ---
Subjective Progress Note Date: 03/05/23 Patient initially seen by Dr. Francisco Lacy. Please refer to his note for details. Patient is a 62-year-old male with pneumonia and cardiac arrest for less than [address] head did not reveal any acute process. Patient was seen for follow-up. Patient currently on norepinephrine in 0.02 mcg/kg per minute with a rate of 5.32 mL per hour. Also on propofol 50 g/kg per minute. Patient is laying in the bed. He did open his eyes to calling his name. Please refer to examination below. No obvious seizure-like activity noted. Objective - Vital Signs Vital signs: Vital Signs Temp 97.7 F 03/05/23 08:00 Pulse 87 03/05/23 10:00 Resp 24 03/05/23 10:00 BP 138/59 03/03/23 12:42 Pulse Ox 97 03/05/23 10:00 FiO2 40 03/05/23 10:49 Intake & Output 03/04/23 03/05/23 03/05/23 18:59 06:59 18:59 Intake Total 6149.637 3415.156 519.484 Output Total 40 30 25 Balance 7700.022 0117.156 494.484 Weight 70.9 kg Intake: IV 166 210 140 KVO 166 110 40 Piperacillin-Tazobactam 3 100 100 .375 gm In Sodium Chloride 0.9% 100 ml @ 25 mls/hr IVPB Q12HR [facility] Rx #:[id number] Intake, IV Titration 234.279 219.156 73.484 Amount Norepinephrine 4 mg In 136.073 56.984 42.826 Sodium Chloride 0.9% 250 ml @ 0.03 MCG/KG/MIN 8.14 mls/hr IV .Q24H [facility] Rx#: [id number] propofoL 1,000 mg In 98.206 162.172 30.658 Empty Bag 1 bag @ 15 MCG/ KG/MIN 6.409 mls/hr IV . [id number] [facility] Rx#:[id number] Oral 180 Tube Feeding 897 759 276 Other 90 90 30 Output: Urine 40 30 25 Other: Voiding Method Indwelling Catheter Indwelling Catheter Indwelling Catheter # Bowel Movements 1 1 ABP, PAP, CO, CI - Last Documented Arterial Blood Pressure 103/50 - Exam General: Lying in bed and does not appear in acute distress. HENT: Supple neck. Respiratory: Intubated on ventilator. Neuro: Limited. Patient is on IV Propofol 15 mcg/kg/min. Is awake but is not verbalizing or following commands. Pupils are round, equal and reactive to light. No facial weakness. No facial grimacing with painful stimuli. Patient slightly tracking which is better than yesterday as per nurse. Has intact gag/cough reflex. Motor: Limited. Not withdrawaling to painful stimuli. No spontaneous movement. Reflexes: 1+ throughout. No seizure like activity noted. Both feet are bandaged. - Labs CBC & Chem 7: 03/05/23 03:45 03/05/23 03:45 Labs: Abnormal Lab Results - Last 24 Hours (Table) 03/04/23 03/04/23 03/04/23 Range/Units 11:18 16:54 17:08 WBC (3.8-10.6) k/uL RBC (4.30-5.90) m/uL Hgb (13.0-17.5) gm/dL Hct (39.0-53.0) % Plt Count (150-450) k/uL ABG pH (7.35-7.45) ABG pCO2 (35-45) mmHg ABG HCO3 (21-25) mmol/L ABG O2 Saturation (94-97) % Sodium (137-145) mmol/L Carbon Dioxide (22-30) mmol/L BUN (9-20) mg/dL Creatinine (0.66-1.25) mg/dL Glucose (74-99) mg/dL POC Glucose (mg/dL) 306 H 294 H (70-110) mg/dL Calcium (8.4-10.2) mg/dL Phosphorus (2.5-4.5) mg/dL Vitamin B12 1213.0 H (200.0-944.0) pg/mL 03/05/23 03/05/23 03/05/23 Range/Units 00:12 03:45 03:45 WBC 10.9 H (3.8-10.6) k/uL RBC 3.48 L (4.30-5.90) m/uL Hgb 9.6 L (13.0-17.5) gm/dL Hct 30.9 L (39.0-53.0) % Plt Count 80 L (150-450) k/uL ABG pH (7.35-7.45) ABG pCO2 (35-45) mmHg ABG HCO3 (21-25) mmol/L ABG O2 Saturation (94-97) % Sodium 133 L (137-145) mmol/L Carbon Dioxide 17 L (22-30) mmol/L BUN 82 H (9-20) mg/dL Creatinine 3.27 H (0.66-1.25) mg/dL Glucose 398 H (74-99) mg/dL POC Glucose (mg/dL) 356 H (70-110) mg/dL Calcium 7.6 L (8.4-10.2) mg/dL Phosphorus (2.5-4.5) mg/dL Vitamin B12 (200.0-944.0) pg/mL 03/05/23 03/05/23 03/05/23 Range/Units 03:45 05:29 06:11 WBC (3.8-10.6) k/uL RBC (4.30-5.90) m/uL Hgb (13.0-17.5) gm/dL Hct (39.0-53.0) % Plt Count (150-450) k/uL ABG pH 7.46 H (7.35-7.45) ABG pCO2 28 L (35-45) mmHg ABG HCO3 20 L (21-25) mmol/L ABG O2 Saturation 97.3 H (94-97) % Sodium (137-145) mmol/L Carbon Dioxide (22-30) mmol/L BUN (9-20) mg/dL Creatinine (0.66-1.25) mg/dL Glucose (74-99) mg/dL POC Glucose (mg/dL) 359 H (70-110) mg/dL Calcium (8.4-10.2) mg/dL Phosphorus 5.2 H (2.5-4.5) mg/dL Vitamin B12 (200.0-944.0) pg/mL Microbiology - Last 24 Hours (Table) 02/28/23 20:10 Legionella Culture - Preliminary Sputum Assessment and Plan Assessment: This is a 63-year-old gentleman who presented to the emergency department on 02/28/2022 since was found on the floor by his father and he had generalized weakness. Patient has been having recent cough and has been taken DayQuil and NyQuil. It seems while he was observation the patient had witnessed PEA cardiac arrest possibly about less than 5 minutes. He has Legionella pneumonia and continues to be severely confused. Altered mental status due to septic encephalopathy from pneumonia and metabolic encephalopathy in which had acute on chronic renal failure. Some component also due to medication effect (Propofol). Cannot rule out anoxic encephalopathy/brain injury from cardiopulmonary arrest. Witness cardiopulmonary arrest lasting less. Per ICU nurse, unsure exact time frame. Community acquire pneumonia/sepsis due to Legionalla Pneumonia Acute on chronic renal faliure and getting dialysis during this admission--trending down Acute hypoxemic respiratory failure requiring intubation DM Acute rhabdomyolysis--likely since was found down, now normal. Plan: * CT head revealed no acute intracranial abnormality. Mild to moderate generalized brain atrophy and chronic microvascular ischemic changes. I personally reviewed CT head, agree with the findings. There is slight prominence of the ventricles, slightly more than amount of cortical atrophy. Clinical correlation recommended for possible NPH. There is evidence of old lacunar stroke left thalamus. * EEG was performed, which was abnormal due to background slowing of moderate to severe degree. This is suggestive of generalized cerebral dysfunction, as can be seen with toxic metabolic encephalopathy or related to diffuse structural brain abnormality or medication effect. Clinical correlation is recommended. No epileptiform activity was seen. * TSH 1.48, ammonia level < 9, Vitamin B12 1213, folate 5.50 and repeat CK level 63. All tests normal, but folate borderline, we'll start folate 1 mg daily. * I.D. is on board. * Will defer the rest of medical management to the primary team and other specialist.
--- NOTE | 2023-03-05 11:38 | P.PN ---
Subjective Progress Note Date: 03/05/23 Principal diagnosis: Sepsis and Legionella pneumonia Patient is a 62-year-old male with a past medical history significant for diabetes mellitus hypertension renal insufficiency patient was brought into the ER concerning for weakness and did have some respiratory symptoms patient did have a fever and worsening respiratory status requiring intubation and admission to the ICU the patient urine for digital antigen came back positive evening of 03/01/2023. On today's evaluation that is 03/05/2023 patient continues to be afebrile, the patient remains to be intubated on the vent with an FiO2 stable at 50%, no significant purulent secretions through the ET vomiting diarrhea reported by the nursing staff, patient is requiring a low-dose of pressor support to maintain his blood pressure Patient white count normalized to 10.9 creatinine is 3.27, blood and sputum cult ures currently pending, urine for Legionella antigen is positive Objective - Vital Signs Vital signs: Vital Signs Temp 97.7 F 03/05/23 08:00 Pulse 87 03/05/23 10:00 Resp 24 03/05/23 10:00 BP 138/59 03/03/23 12:42 Pulse Ox 97 03/05/23 10:00 FiO2 40 03/05/23 10:49 Intake & Output 03/04/23 03/05/23 03/05/23 18:59 06:59 18:59 Intake Total 4399.304 1147.156 519.484 Output Total 40 30 25 Balance 5475.472 7805.156 494.484 Weight 70.9 kg Intake: IV 166 210 140 KVO 166 110 40 Piperacillin-Tazobactam 3 100 100 .375 gm In Sodium Chloride 0.9% 100 ml @ 25 mls/hr IVPB Q12HR [facility] Rx #:[id number] Intake, IV Titration 234.279 219.156 73.484 Amount Norepinephrine 4 mg In 136.073 56.984 42.826 Sodium Chloride 0.9% 250 ml @ 0.03 MCG/KG/MIN 8.14 mls/hr IV .Q24H [facility] Rx#: [id number] propofoL 1,000 mg In 98.206 162.172 30.658 Empty Bag 1 bag @ 15 MCG/ KG/MIN 6.409 mls/hr IV . [id number] [facility] Rx#:[id number] Oral 180 Tube Feeding 897 759 276 Other 90 90 30 Output: Urine 40 30 25 Other: Voiding Method Indwelling Catheter Indwelling Catheter Indwelling Catheter # Bowel Movements 1 1 ABP, PAP, CO, CI - Last Documented Arterial Blood Pressure 103/50 - Exam GENERAL DESCRIPTION: Middle-aged male intubated on the vent RESPIRATORY SYSTEM: Unlabored breathing , decreased breath sound at the base HEART: S1 S2 regular rate and rhythm , ABDOMEN: Soft , no tenderness EXTREMITIES: No edema feet - Labs CBC & Chem 7: 03/05/23 03:45 03/05/23 03:45 Labs: Abnormal Lab Results - Last 24 Hours (Table) 03/04/23 03/04/23 03/05/23 Range/Units 16:54 17:08 00:12 WBC (3.8-10.6) k/uL RBC (4.30-5.90) m/uL Hgb (13.0-17.5) gm/dL Hct (39.0-53.0) % Plt Count (150-450) k/uL ABG pH (7.35-7.45) ABG pCO2 (35-45) mmHg ABG HCO3 (21-25) mmol/L ABG O2 Saturation (94-97) % Sodium (137-145) mmol/L Carbon Dioxide (22-30) mmol/L BUN (9-20) mg/dL Creatinine (0.66-1.25) mg/dL Glucose (74-99) mg/dL POC Glucose (mg/dL) 294 H 356 H (70-110) mg/dL Calcium (8.4-10.2) mg/dL Phosphorus (2.5-4.5) mg/dL Vitamin B12 1213.0 H (200.0-944.0) pg/mL 03/05/23 03/05/23 03/05/23 Range/Units 03:45 03:45 03:45 WBC 10.9 H (3.8-10.6) k/uL RBC 3.48 L (4.30-5.90) m/uL Hgb 9.6 L (13.0-17.5) gm/dL Hct 30.9 L (39.0-53.0) % Plt Count 80 L (150-450) k/uL ABG pH (7.35-7.45) ABG pCO2 (35-45) mmHg ABG HCO3 (21-25) mmol/L ABG O2 Saturation (94-97) % Sodium 133 L (137-145) mmol/L Carbon Dioxide 17 L (22-30) mmol/L BUN 82 H (9-20) mg/dL Creatinine 3.27 H (0.66-1.25) mg/dL Glucose 398 H (74-99) mg/dL POC Glucose (mg/dL) (70-110) mg/dL Calcium 7.6 L (8.4-10.2) mg/dL Phosphorus 5.2 H (2.5-4.5) mg/dL Vitamin B12 (200.0-944.0) pg/mL 03/05/23 03/05/23 Range/Units 05:29 06:11 WBC (3.8-10.6) k/uL RBC (4.30-5.90) m/uL Hgb (13.0-17.5) gm/dL Hct (39.0-53.0) % Plt Count (150-450) k/uL ABG pH 7.46 H (7.35-7.45) ABG pCO2 28 L (35-45) mmHg ABG HCO3 20 L (21-25) mmol/L ABG O2 Saturation 97.3 H (94-97) % Sodium (137-145) mmol/L Carbon Dioxide (22-30) mmol/L BUN (9-20) mg/dL Creatinine (0.66-1.25) mg/dL Glucose (74-99) mg/dL POC Glucose (mg/dL) 359 H (70-110) mg/dL Calcium (8.4-10.2) mg/dL Phosphorus (2.5-4.5) mg/dL Vitamin B12 (200.0-944.0) pg/mL Microbiology - Last 24 Hours (Table) 02/28/23 20:10 Legionella Culture - Preliminary Sputum Assessment and Plan (1) Legionella pneumonia Current Visit: Yes Status: Acute Code(s): A48.1 - LEGIONNAIRES' DISEASE SNOMED Code(s): 024599575 (2) Sepsis Current Visit: Yes Status: Acute Code(s): A41.9 - SEPSIS, UNSPECIFIED ORGANISM SNOMED Code(s): 71097394 Plan: 1patient presented to hospital with sepsis in this patient with a fever tach ycardia hypotension source is likely left lower lobe pneumonia in this patient with weakness lethargy and decreased level of responsiveness and the question of community-acquired versus aspiration pneumonia 2-urine for Legionella antigen is positive, sputum cultures are currently negative for any resistant pathogen 3-Patient fever has resolved and the patient white count has normalized 4- patient to continue with Levaquin Zosyn as there is concern for possible aspiration pneumonia at the time of cardiac arrest and monitor his clinical course closely Dictation was produced using [employer] dictation software. please excuse any grammatical, word or spelling errors. Time with Patient: Less than 30
--- NOTE | 2023-03-05 11:39 | P.CONS ---
History of Present Illness - Reason for Consult Consult date: 03/05/23 wound care - History of Present Illness This is a 62-year-old patient being seen in ICU intubated. Patient suffered a cardiac arrest he is currently receiving dialysis. Patient is being seen due to chronic ulcerations of the right great toe medial aspect and the left plantar foot. Patient has a ulceration to the right great toe measuring approximately 0.4 x 0.3 x 0.2 cm with significant amount of callus and nonviable tissue present. Minimal to no granulation noted. No tunneling or undermining noted. Left plantar ulceration measuring 2.5 x 1 x 0.2 cm with significant amount of slough and nonviable tissue. Minimal to no granulation noted. The wound edges show callus. Patient's past medical history: Diabetes, hypertension, chronic renal disease coronary artery disease. Review of systems: Unable to obtain due to intubation Physical exam: General Appearance: Alert, cooperative, no distress, appears stated age. Skin: See HPI all other Skin color, texture, tugor normal, no rashes or lesions. Neurologic: Alert oriented x3 Assessment: 1. Nonhealing ulceration with fat layer exposure other part of left foot 2. Nonhealing ulceration right great toe with fat layer exposure 3. Diabetic foot ulcer 4. Chronic kidney disease on dialysis Plan: 1. Right great toe/right left plantar foot: Apply honey gel, dry gauze, rolled gauze and secure with paper tape. Change Sunday. Thank you for the consultation any questions please contact the wound care center DNP note has been reviewed and discussed with Dr. Jeffers and the impression and plan of care has been directed as dictated. Past Medical History Past Medical History: Blood Disorder, Diabetes Mellitus, Hypertension, Renal Disease, Skin Disorder Additional Past Medical History / Comment(s): diabetic ulcers jose feet, iron infusion 3 weeks ago. IRON DEFICIENCY ANEMIA. History of Any Multi-Drug Resistant Organisms: None Reported Past Surgical History: Tonsillectomy Additional Past Surgical History / Comment(s): kidney biopsy Past Anesthesia/Blood Transfusion Reactions: No Reported Reaction Past Psychological History: No Psychological Hx Reported Smoking Status: Never smoker Past Alcohol Use History: Rare Past Drug Use History: None Reported - Past Family History Mother Family Medical History: Congestive Heart Failure (CHF), Coronary Artery Disease (CAD), Diabetes Mellitus Father Family Medical History: Cancer, Diabetes Mellitus Medications and Allergies Home Medications Medication Instructions Recorded Confirmed Type Insulin Aspart [NovoLOG Flexpen] 7 units SQ AC-BID 03/08/18 02/28/23 History allopurinoL [Zyloprim] 100 mg PO DAILY 03/08/18 02/28/23 History calcitrioL [Calcitriol] 0.25 mcg PO MOTUWETHFR 03/08/18 02/28/23 History Ergocalciferol (Vitamin D2) 1,250 mcg PO Q14D 02/28/23 02/28/23 History [Drisdol (50,000 Iu)] Sildenafil Citrate 50 mg PO DAILY PRN 02/28/23 02/28/23 History Simvastatin 10 mg PO DAILY 02/28/23 02/28/23 History carvediloL [Coreg] 6.25 mg PO BID 02/28/23 02/28/23 History Allergies Allergy/AdvReac Type Severity Reaction Status Date / Time No Known Allergies Allergy Verified 02/28/23 16:15 Physical Exam Vitals: Vital Signs Temp Pulse Resp Pulse Ox FiO2 03/05/23 10:49 40 03/05/23 10:00 87 24 97 03/05/23 09:45 80 24 98 03/05/23 09:30 77 24 97 03/05/23 09:15 76 24 97 03/05/23 09:00 76 24 97 03/05/23 08:45 71 24 97 03/05/23 08:41 50 03/05/23 08:30 73 24 96 03/05/23 08:15 74 24 97 03/05/23 08:00 97.7 F 72 24 96 50 03/05/23 07:45 73 24 96 03/05/23 07:30 75 24 96 03/05/23 07:15 74 24 97 03/05/23 07:00 70 24 97 50 03/05/23 06:45 70 24 97 03/05/23 06:30 71 24 97 03/05/23 06:15 73 24 96 03/05/23 06:00 73 24 96 50 03/05/23 05:45 72 24 97 03/05/23 05:30 72 24 96 03/05/23 05:15 71 24 96 03/05/23 05:00 70 24 96 50 03/05/23 04:45 71 24 97 03/05/23 04:30 71 24 96 03/05/23 04:15 70 24 96 03/05/23 04:00 97 F L 71 24 96 50 03/05/23 03:45 71 24 95 03/05/23 03:30 70 24 95 03/05/23 03:15 69 24 95 03/05/23 03:14 50 03/05/23 03:00 69 24 95 50 03/05/23 02:45 70 24 95 03/05/23 02:30 70 24 95 03/05/23 02:15 70 24 95 03/05/23 02:00 70 24 96 50 03/05/23 01:45 69 24 97 03/05/23 01:30 71 24 96 03/05/23 01:15 75 24 98 03/05/23 01:00 73 24 96 50 03/05/23 00:45 24 97 03/05/23 00:30 70 24 98 03/05/23 00:15 66 24 97 03/05/23 00:00 96.7 F L 65 24 97 50 03/04/23 23:45 66 24 97 03/04/23 23:40 50 03/04/23 23:30 66 24 97 03/04/23 23:15 66 22 97 03/04/23 23:00 67 24 97 50 03/04/23 22:45 66 24 97 03/04/23 22:30 68 24 97 03/04/23 22:15 74 24 97 03/04/23 22:00 68 24 97 50 03/04/23 21:45 68 24 96 03/04/23 21:30 66 24 97 03/04/23 21:15 66 24 97 03/04/23 21:00 65 24 97 50 03/04/23 20:45 65 24 97 03/04/23 20:30 67 24 97 03/04/23 20:15 66 24 97 03/04/23 20:00 97.6 F 68 24 97 50 03/04/23 19:45 67 24 97 03/04/23 19:30 71 24 99 03/04/23 19:23 50 03/04/23 19:15 68 24 96 03/04/23 19:00 69 24 96 03/04/23 18:45 70 24 96 03/04/23 18:30 68 24 97 03/04/23 18:15 71 24 97 03/04/23 18:00 74 24 97 03/04/23 17:45 67 24 97 03/04/23 17:30 72 22 97 03/04/23 17:15 68 22 97 03/04/23 17:00 70 22 97 03/04/23 16:45 68 24 97 03/04/23 16:30 70 24 97 03/04/23 16:15 74 24 97 03/04/23 16:01 50 03/04/23 16:00 97.5 F L 76 22 97 50 03/04/23 15:30 78 22 03/04/23 15:15 73 22 97 03/04/23 15:00 80 22 98 03/04/23 14:45 83 24 98 03/04/23 14:30 74 24 97 03/04/23 14:15 75 22 97 03/04/23 14:00 90 22 96 03/04/23 13:45 81 24 98 03/04/23 13:30 78 24 98 03/04/23 13:15 73 24 97 03/04/23 13:00 75 22 96 03/04/23 12:45 83 22 97 03/04/23 12:30 84 22 95 03/04/23 12:15 85 22 96 03/04/23 12:00 97.7 F 77 22 96 50 03/04/23 11:57 50 03/04/23 11:56 50 03/04/23 11:45 79 22 96 Intake and Output 03/04/23 03/05/23 03/05/23 22:59 06:59 14:59 Intake Total 836.320 936.156 519.484 Output Total 20 30 25 Balance 816.320 906.156 494.484 Intake: IV 170 105 140 KVO 95 80 40 Piperacillin-Tazobactam 3 75 25 100 .375 gm In Sodium Chloride 0.9% 100 ml @ 25 mls/hr IVPB Q12HR [facility] Rx #:[id number] Intake, IV Titration 54.320 219.156 73.484 Amount Norepinephrine 4 mg In 28.219 56.984 42.826 Sodium Chloride 0.9% 250 ml @ 0.03 MCG/KG/MIN 8.14 mls/hr IV .Q24H [facility] Rx#: [id number] propofoL 1,000 mg In 26.101 162.172 30.658 Empty Bag 1 bag @ 15 MCG/ KG/MIN 6.409 mls/hr IV . [id number] [facility] Rx#:[id number] Tube Feeding 552 552 276 Other 60 60 30 Output: Urine 20 30 25 Other: Voiding Method Indwelling Catheter Indwelling Catheter Indwelling Catheter # Bowel Movements 1 1 Weight 70.9 kg ABP, PAP, CO, CI - Last 8 Hours Arterial Blood Pressure 103/50 Arterial Blood Pressure 126/67 Arterial Blood Pressure 104/57 Arterial Blood Pressure 80/51 Arterial Blood Pressure 100/52 Arterial Blood Pressure 105/57 Arterial Blood Pressure 82/50 Arterial Blood Pressure 100/55 Arterial Blood Pressure 94/57 Arterial Blood Pressure 91/54 Arterial Blood Pressure 108/62 Arterial Blood Pressure 98/59 Arterial Blood Pressure 96/59 Arterial Blood Pressure 102/60 Arterial Blood Pressure 95/59 Arterial Blood Pressure 99/59 Arterial Blood Pressure 89/56 Arterial Blood Pressure 89/55 Arterial Blood Pressure 90/56 Arterial Blood Pressure 90/55 Arterial Blood Pressure 90/54 Arterial Blood Pressure 83/53 Arterial Blood Pressure 92/54 Arterial Blood Pressure 87/55 Arterial Blood Pressure 85/53 Arterial Blood Pressure 67/67 Results CBC & Chem 7: 03/05/23 03:45 03/05/23 03:45 Labs: Abnormal Lab Results - Last 24 Hours (Table) 03/04/23 03/04/23 03/05/23 Range/Units 16:54 17:08 00:12 WBC (3.8-10.6) k/uL RBC (4.30-5.90) m/uL Hgb (13.0-17.5) gm/dL Hct (39.0-53.0) % Plt Count (150-450) k/uL ABG pH (7.35-7.45) ABG pCO2 (35-45) mmHg ABG HCO3 (21-25) mmol/L ABG O2 Saturation (94-97) % Sodium (137-145) mmol/L Carbon Dioxide (22-30) mmol/L BUN (9-20) mg/dL Creatinine (0.66-1.25) mg/dL Glucose (74-99) mg/dL POC Glucose (mg/dL) 294 H 356 H (70-110) mg/dL Calcium (8.4-10.2) mg/dL Phosphorus (2.5-4.5) mg/dL Vitamin B12 1213.0 H (200.0-944.0) pg/mL 03/05/23 03/05/23 03/05/23 Range/Units 03:45 03:45 03:45 WBC 10.9 H (3.8-10.6) k/uL RBC 3.48 L (4.30-5.90) m/uL Hgb 9.6 L (13.0-17.5) gm/dL Hct 30.9 L (39.0-53.0) % Plt Count 80 L (150-450) k/uL ABG pH (7.35-7.45) ABG pCO2 (35-45) mmHg ABG HCO3 (21-25) mmol/L ABG O2 Saturation (94-97) % Sodium 133 L (137-145) mmol/L Carbon Dioxide 17 L (22-30) mmol/L BUN 82 H (9-20) mg/dL Creatinine 3.27 H (0.66-1.25) mg/dL Glucose 398 H (74-99) mg/dL POC Glucose (mg/dL) (70-110) mg/dL Calcium 7.6 L (8.4-10.2) mg/dL Phosphorus 5.2 H (2.5-4.5) mg/dL Vitamin B12 (200.0-944.0) pg/mL 03/05/23 03/05/23 Range/Units 05:29 06:11 WBC (3.8-10.6) k/uL RBC (4.30-5.90) m/uL Hgb (13.0-17.5) gm/dL Hct (39.0-53.0) % Plt Count (150-450) k/uL ABG pH 7.46 H (7.35-7.45) ABG pCO2 28 L (35-45) mmHg ABG HCO3 20 L (21-25) mmol/L ABG O2 Saturation 97.3 H (94-97) % Sodium (137-145) mmol/L Carbon Dioxide (22-30) mmol/L BUN (9-20) mg/dL Creatinine (0.66-1.25) mg/dL Glucose (74-99) mg/dL POC Glucose (mg/dL) 359 H (70-110) mg/dL Calcium (8.4-10.2) mg/dL Phosphorus (2.5-4.5) mg/dL Vitamin B12 (200.0-944.0) pg/mL Microbiology - Last 24 Hours (Table) 02/28/23 20:10 Legionella Culture - Preliminary Sputum Assessment and Plan (1) Non-pressure chronic ulcer of other part of left foot with fat layer exposed Current Visit: Yes Status: Acute Code(s): L97.522 - NON-PRS CHRONIC ULCER OTH PRT LEFT FOOT W FAT LAYER EXPOSED SNOMED Code(s): 87338220690885865 (2) Non-pressure chronic ulcer of other part of right foot with fat layer exposed Current Visit: Yes Status: Acute Code(s): L97.512 - NON-PRS CHRONIC ULCER OTH PRT RIGHT FOOT W FAT LAYER EXPOSED SNOMED Code(s): 97595319897104711 (3) Type 2 diabetes mellitus with foot ulcer Current Visit: Yes Status: Acute Code(s): E11.621 - TYPE 2 DIABETES MELLITUS WITH FOOT ULCER; L97.509 - NON-PRESSURE CHRONIC ULCER OTH PRT UNSP FOOT W UNSP SEVERITY SNOMED Code(s): 915007132
[2023-03-05 11:40] LABS: Glucose,Whole Blood 274 mg/dL (70-110)
[2023-03-05] MEDS: FOLIC ACID 1 MG TAB PO SCH (11:47)
[2023-03-05] MEDS: DARBEPOETIN ALFA 40 MCG/0.4 ML SYRINGE SQ SCH (12:23)
[2023-03-05] MEDS ORDERED: INSULIN ASPART (NovoLOG) 100 UNIT/ML VIAL SQ SCH (12:30)
[2023-03-05] MEDS: LEVOFLOXACIN 500MG-D5W PMX 500 MG in DEXTROSE/WATER 1 100ML.BAG IVPB SCH (18:01)
[2023-03-05 18:02] LABS: Glucose,Whole Blood 195 mg/dL (70-110)
[2023-03-06 00:20] LABS: Glucose,Whole Blood 206 mg/dL (70-110)
[2023-03-06] MEDS: INSULIN ASPART (NovoLOG) 100 UNIT/ML VIAL SQ SCH ×8 (00:22→18:04)
[2023-03-06 04:27] LABS: HCT 28.9 % (39.0-53.0); HGB 9.1 gm/dL (13.0-17.5); Hypochromasia Slight; MCH 27.9 pg (25.0-35.0); MCHC 31.6 g/dL (31.0-37.0); MCV 88.3 fL (80.0-100.0); Mean Platelet Volume 10.7; Platelet Count 111 k/uL (150-450); RBC 3.27 m/uL (4.30-5.90); RDW 15.1 % (11.5-15.5); WBC 14.4 k/uL (3.8-10.6)
[2023-03-06 04:32] LABS: African American GFR (CKD) 27 (>60 ml/min/1.73 sqM); Anion Gap 12 mmol/L; Blood Urea Nitrogen 78 mg/dL (9-20); Calcium 7.7 mg/dL (8.4-10.2); Carbon Dioxide 19 mmol/L (22-30); Chloride 101 mmol/L (98-107); Glucose 175 mg/dL (74-99); Non-African American GFR(CKD) 23 (>60 ml/min/1.73 sqM); Potassium 3.7 mmol/L (3.5-5.1); Sodium 132 mmol/L (137-145)
[2023-03-06] MEDS ORDERED: POTASSIUM CHLORIDE 10 MEQ in WATER FOR INJECTION 1 100ML.BAG IVPB STA (05:21)
[2023-03-06 05:50] LABS: ABG Base Excess -0.8 mmol/L; ABG HCO3 23 mmol/L (21-25); ABG Oxygen Saturation 94.8 % (94-97); ABG PCO2 33 mmHg (35-45); ABG PH 7.46 (7.35-7.45); ABG PO2 67 mmHg (83-108); ABG TCO2 24 mmol/L (19-24); Allen Test Performed? Yes
[2023-03-06 06:06] LABS: Glucose,Whole Blood 234 mg/dL (70-110)
[2023-03-06] MEDS: INSULIN DETEMIR (LEVEMIR) 100 UNIT/ML SYR SQ SCH (06:13)
[2023-03-06] MEDS: MIDODRINE 5 MG TAB PO SCH ×3 (06:26→18:05)
--- NOTE | 2023-03-06 06:26 | XR ---
EXAMINATION TYPE: XR chest 1V portable DATE OF EXAM: 03/06/2023 5:26 AM COMPARISON: Chest radiographs from 03/05/2023 TECHNIQUE: XR chest 1V portable Portable AP radiograph of the chest. CLINICAL INDICATION:Male, 62 years old with history of Mechanical ventilation; FINDINGS: Lungs/Pleura: Blunting of the left costophrenic angle. No pneumothorax. Similar left mid and lower magy ng airspace opacities. Pulmonary vascularity: Unremarkable. Heart/mediastinum: Cardiomediastinal silhouette is enlarged and stable. Musculoskeletal: No acute osseous pathology. Other findings: None Lines/Tubes: Stable endotracheal and enteric tubes. Stable left subclavian approach central venous catheter. IMPRESSION: 1. No significant change in left mid and lower lung airspace opacities with small left pleural effus ion. 2. Stable support lines and tubes.
--- NOTE | 2023-03-06 08:36 | P.PN ---
Subjective Progress Note Date: 03/06/23 I am seeing this patient in new consultation today 03/01/2023 in the intensive care unit, after the patient had a witnessed PEA cardiac arrest while on the Observation unit. Patient is a 62-year-old white male with past medical history significant for diabetes mellitus, diabetic foot ulcers, hypertension, hyperlipidemia, iron deficiency anemia, chronic kidney disease. Patient is currently sedated and intubated on the mechanical ventilator. He was admitted yesterday morning, after being found on the floor by his father. Apparently, the patient denied hitting his head or losing consciousness. Patient does have diabetes mellitus, and his blood sugars had been running high at home. Chest x- ray on admission showed a left lower lobe infiltrate consistent with community acquired pneumonia. Patient did have a fever with a T-max of 100.7F. Apparently, after being admitted to the observation unt, the patient was noted to have low blood pressure. The patient was given 1 L normal saline bolus and 5 amps sodium bicarb. Soon after, the patient had a cardiac arrest. Presenting rhythm was PEA. Patient had a limited downtime of less than 5 minutes. He received 1 mg of epinephrine. Rapid sequence intubation was performed. The patient was then transferred to the intensive care unit. Dr. Lacy did come in and place a left subclavian central line catheter and a right wrist arterial line. Patient was also noted to be in acute renal failure. He did have a right femoral hemodialysis catheter placed earlier, and is currently undergoing emergent hemodialysis. Patient is currently in the intensive care unit, intubated to the mechanical ventilator. He is sedated on propofol which is currently infusing at 40 mcg/kg/m. He is synchronous with the mechanical ventilator. Postintubation ABG shows a pO2 greater than 400, pCO2 27, pH of 7.43, this was done on ventilator settings of assist control, respiratory rate 22, tidal volume 500, FiO2 100%, and PEEP of 5. Patient's FiO2 was dropped to 50%. Peak pressures 27. Post intubation chest x-ray shows the endotracheal tube 4 cm above the anika. Oral gastric tube could be advanced 5 cm. There is a persistent left lower lobe infiltrate. Most recent CBC from yesterday evening showed a WBC count of 7.8, hemoglobin 7.1, hematocrit 22.7, platelets 120. No obvious acute blood loss was noted. Most recent available BMP shows sodium 140, potassium 4.6, chloride 107, serum bicarb 15, BUN 107, creatinine 7.82, glucose 282. Acetone negative. LFTs not elevated. CPK 1240. Currently, 3 A sodium bicarb in D5W is infusing at 100 ML's per hour. There is also normal saline infusing at 130 ML's per hour. Patient is currently anuric. Troponins elevated at 0.457, 0.388, and 0.422 respectively. ECG shows normal sinus rhythm without any obvious acute ischemic changes. Urinalysis not concerning for UTI. Lactic acid level was elevated at 4 is down 1.6. Negative for influenza, RSV, COVID- 19. Patient was started on empiric antibiotics in the form of ceftriaxone and azithromycin. Currently afebrile. Patient's condition is currently critical, moderate in the intensive care unit. Progress note dated 03/02/2023. 62-year-old male who was seen in consultation yesterday, status post cardiopulmonary arrest. The patient had a witnessed PEA arrest. He had a very short resuscitation time of about 5 minutes. The patient was transferred to the intensive care unit. I came into the hospital, on Sunday evening, and placed a right radial art line, and a left subclavian triple-lumen catheter. Remains in the intensive care unit, on the ventilator. Currently, the patient is on the volume assist control, rate 22, tidal volume 500, FiO2 50% PEEP of 5. Blood gases show pO2 of 97, pCO2 25, and pH is 7.53. The patient is receiving saline at 100 mL an hour, propofol at 40 mcg/kg/m, norepinephrine at 7.7 mcg/m, and vital high protein at 35 mL an hour, with a goal of 54 mL an hour. White count 12.1, hemoglobin 8.2, hematocrit 25.1, and platelet count 139,000. Sodium is 137, potassium 3.6, chlorides 105, CO2 18, anion gap 14, BUN 73, and creatinine 5.21. Calcium is 7.1. Today, is likely a dialysis day. Culture information is pending or negative. Chest x-ray continues to show a consolidative process, in the left midlung left lower lobe area. Progress note dated 03/03/2023. 62-year-old male who is seen today in room 264. The patient remains on mechanical ventilator, having sustained a cardiopulmonary arrest. Ventilator settings include the volume assist control, rate 22, tidal volume 500, FiO2 50%, and PEEP of 5. Arterial blood gases show pO2 38, pCO2 34, and the pH is 7.45. The patient remains on norepinephrine at 5 mcg/m, propofol at 30 mcg/kg/m, and saline at 100 mL an hour. The patient's also getting vital high protein at 69 mL an hour, which is goal. White count is 11, hemoglobin 8.3, hematocrit 25.3, and platelet count 109,000. Sodium 134, potassium 3.2, chlorides 103, CO2 19, BUN 56, and creatinine 3.35. Microbiologic sampling as as far negative. Chest x-ray shows extensive infiltrate, and left midlung and left lower lobe area. The patient continues on Zosyn and Levaquin. Yesterday, we attempted a daily interruption of sedation, and the patient did not do well. We will attempt that again today. Progress note dated 03/04/2023. 62-year-old male, seen again in room 264. The patient remains on the mechanical ventilator. He is status post brief cardiopulmonary arrest, with cardiop ulmonary resuscitation, and return of spontaneous circulation. The cardiac arrest was brief, lasting maybe 5-7 minutes. Current ventilator settings include the volume assist control, rate 22, tidal volume 500, FiO2 50%, and PEEP of 5. Blood gases show pO2 of 73, pCO2 31, and pH 7.51. The patient continues on propofol at 35 mcg/kg/m, norepinephrine at 4 mcg/m, and saline at KVO. The patient is getting vital high protein at 69 mL an hour, which is goal. His Legionella urinary antigen was positive. His chest x-ray continues to show a left-sided infiltrate. He did have hemodialysis yesterday, and 1 L of fluid was removed. White count 10.4, hemoglobin 8.6, hematocrit 26.8, and platelet count 82,000. Sodium 133, potassium 3.8, chlorides 102, CO2 21, BUN 52, creatinine 2.55. Chest x-ray shows a patchy infiltrate, involving the left midlung and left lower lobe area. The chest x-ray in my opinion is essentially unchanged. On 03/05/2023, I'm seeing the patient in the intensive care unit. The patient is currently intubated on a mechanical ventilator. The patient is post cardiac arrest that occurred on 02/28/2023. The patient presented to us with an acute kidney injury on top of chronic kidney failure. He was profoundly acidotic at the time of admission and the serum bicarb was down to 10. No significant hyperkalemia. He was admitted to the medical/he had a cardiac arrest. His down time was estimated to be more than 5 minutes. He received at least 5 minutes of CPR and there was return of spontaneous circulation. His echocardiogram shows severely and. Impaired LV function with an EF of around 20-25%. Since then, the patient has not had any major cardiac events. His cardiac rhythm is sinus. He is currently undergoing hemodialysis for end-stage renal disease. Note that the patient has sustained an acute kidney injury on top of his chronic kidney failure. His baseline GFR was 18 and the patient has chronic stage IV kidney disease. He has a hemodialysis catheter in his right femoral. 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 Meanwhile, he remains intubated on a mechanical ventilator. His calm and comfortable on propofol which is running at 20 mcg/kg/m. He is receiving daily sedation holidays. He was not felt to be neurologically awake enough to be extubated. His most recent CAT scan of the brain was done on 03/04/2023 and the patient was not found to have an acute abnormalities. The patient had mild to moderate generalized brain atrophy. No edema. No stroke. Neurology is on the case and the patient was given an EGD today and there is also still pending for now. Hemodynamically, the patient is requiring low-dose norepinephrine at 0.04 mcg/kg/m. He is afebrile. His most recent chest x-ray that was done today showed extensive consolidation of the left lower lobe and the lingula. Legionella urine antigen was positive and this is likely a Legionella pneumonia. This was present on earlier chest x-rays that dates back to 02/28/2023. It is likely that the patient presented to us with a pneumonia. Possibility of a aspiration pneumonia at a time of his cardiac arrest cannot be completely ruled out. His sputum is negative. Blood cultures negative. Antibiotic coverage is a combination of Zosyn and Levaquin. He is diabetic on Levemir insulin 20 units and is also taking NovoLog 7 units 3 times a day. Enteral feeding for nutritional support and the patient is currently on vital HP at at the rate of 69 mL an hour. He is afebrile. No other significant events overnight. His current ventilator s ettings include an assist-control mode rate of 24, tidal volume of 500, FiO2 of 50% with a PEEP of 5. The blood gas shows a pH of 7.46 with a pCO2 of 28 and pO2 of 86. On 03/06/2023, the patient is opening his eyes spontaneously. He is tracking. Is not following any commands. He is currently on 15 mcg/kg/m of propofol and when a positive further weaning this propofol. His overall respiratory status is stable. Is currently on assist control mode with a rate of 16, tidal volume of 500, FiO2 of 40% with a PEEP of 5. As mentioned earlier, he has a Legionella left lower lobe pneumonia and he continues to have persistent consolidation of the left lower lobe. Blood gas from today shows a pH of 7.46 with a pCO2 of 33 and pO2 of 67 and this was done on the above-mentioned ventilator settings. Meanwhile, the patient is still requiring low-dose pressors. Currently on norepinephrine running at 0.03 mcg/kg/m. He is undergoing periodic dialysis as the patient sustained an acute kidney injury on top of his chronic kidney failure. His last session of hemodialysis was yesterday and the patient was also infiltrated for a total of 0.5 L. His urine output as such is minimal at this point. Urine is a 78 with a creatinine of 2.8 and a sodium level is 132. Serum bicarbs of 19. White cell cause of 14.4 with a hemoglobin of 9.1 and a platelet count of 110. Neurologically, as stated, the patient had a negative CAT scan of the brain. EEG showed slowing moderate to severe degree of slowing, generalized dysfunction, no evidence of any seizure activity. Neurology is on the case. He remains on Levaquin. Fecal management system in Place and the patient is still stooling, liquid stool and stool for C. diff has been negative. Blood cultures have been negative. He remains on Levemir insulin 20 units along with NovoLog 7 units [id number] plus a sliding scale coverage. IV fluids are currently at KVO. As stated, he has severe impairment of LV function with an ejection fraction of 20-25%. Cardiac rhythm remained sinus. Objective - Vital Signs Vital signs: Vital Signs Temp 97.2 F L 03/05/23 20:00 Pulse 81 03/06/23 07:00 Resp 16 03/06/23 07:00 BP 131/69 03/05/23 13:26 Pulse Ox 94 L 03/06/23 07:00 FiO2 40 03/06/23 08:00 Intake & Output 03/05/23 03/06/23 03/06/23 18:59 06:59 18:59 Intake Total 3962.016 0641.714 79 Output Total 945 120 5 Balance 759.780 1805.714 74 Weight 82.9 kg Intake: IV 220 220 10 KVO 120 120 10 Levofloxacin 500Mg-D5w 100 Pmx 500 mg In Dextrose/ Water 1 100ml.bag @ 100 mls/hr IVPB Q48H [facility] Rx#: [id number] Piperacillin-Tazobactam 3 100 .375 gm In Sodium Chloride 0.9% 100 ml @ 25 mls/hr IVPB Q12HR [facility] Rx #:[id number] Intake, IV Titration 189.275 128.714 Amount Norepinephrine 4 mg In 129.064 53.408 Sodium Chloride 0.9% 250 ml @ 0.03 MCG/KG/MIN 8.14 mls/hr IV .Q24H [facility] Rx#: [id number] propofoL 1,000 mg In 60.211 75.306 Empty Bag 1 bag @ 15 MCG/ KG/MIN 6.409 mls/hr IV . [id number] [facility] Rx#:[id number] Oral 0 Tube Feeding 828 828 69 Hemodialysis 300 Other 90 60 Output: Urine 45 95 5 Stool 25 Hemodialysis 900 Other: Voiding Method Indwelling Catheter Indwelling Catheter ABP, PAP, CO, CI - Last Documented Arterial Blood Pressure 136/52 - Exam No acute distress, sedated with propofol, with an orally placed endotracheal tube and NG tube. The patient is currently sedated on propofol. Calm and comfortable. Successful mechanical ventilator. Head exam was generally normal. There was no scleral icterus or corneal arcus. Mucous membranes were moist. HEENT examination is grossly unremarkable. Neck supple. Full range of motion. No adenopathy thyromegaly or neck vein distention. Cardiovascular examination reveals regular rhythm rate. S1-S2 normal. No S3 or S4. No discernible murmur noted. Heart sounds are distant. Lungs reveal bilateral rhonchi. No wheezes or crackles. Breath sounds are equal. Abdomen soft bowel sounds are heard. No masses or tenderness. The patient has a dialysis catheter, temperature dialysis catheter in his right femoral vein. Extremities are intact. No cyanosis clubbing or edema. Skin is without rash or lesion. Neurologic examination is somewhat limited as the patient is still on propofol at 15 mcg/kg/m. He opens his eyes spontaneously. He looks around. He does not follow any commands. No facial asymmetry. Pupils are equal and reactive to light. Occasional weak cough. The patient grimaces to deep painful stimulation . - Labs CBC & Chem 7: 03/06/23 04:10 03/06/23 04:10 Labs: Abnormal Lab Results - Last 24 Hours (Table) 03/01/23 03/05/23 03/05/23 Range/Units 07:06 03:45 11:38 WBC (3.8-10.6) k/uL RBC (4.30-5.90) m/uL Hgb (13.0-17.5) gm/dL Hct (39.0-53.0) % Plt Count (150-450) k/uL ABG pH (7.35-7.45) ABG pCO2 (35-45) mmHg ABG pO2 (83-108) mmHg Sodium (137-145) mmol/L Carbon Dioxide (22-30) mmol/L BUN (9-20) mg/dL Creatinine (0.66-1.25) mg/dL Glucose (74-99) mg/dL POC Glucose (mg/dL) 274 H (70-110) mg/dL Calcium (8.4-10.2) mg/dL Phosphorus 5.2 H (2.5-4.5) mg/dL Procalcitonin 86.90 H (0.02-0.09) ng/mL 03/05/23 03/06/23 03/06/23 Range/Units 18:00 00:18 04:10 WBC 14.4 H (3.8-10.6) k/uL RBC 3.27 L (4.30-5.90) m/uL Hgb 9.1 L (13.0-17.5) gm/dL Hct 28.9 L (39.0-53.0) % Plt Count 111 L (150-450) k/uL ABG pH (7.35-7.45) ABG pCO2 (35-45) mmHg ABG pO2 (83-108) mmHg Sodium (137-145) mmol/L Carbon Dioxide (22-30) mmol/L BUN (9-20) mg/dL Creatinine (0.66-1.25) mg/dL Glucose (74-99) mg/dL POC Glucose (mg/dL) 195 H 206 H (70-110) mg/dL Calcium (8.4-10.2) mg/dL Phosphorus (2.5-4.5) mg/dL Procalcitonin (0.02-0.09) ng/mL 03/06/23 03/06/23 03/06/23 Range/Units 04:10 05:41 06:04 WBC (3.8-10.6) k/uL RBC (4.30-5.90) m/uL Hgb (13.0-17.5) gm/dL Hct (39.0-53.0) % Plt Count (150-450) k/uL ABG pH 7.46 H (7.35-7.45) ABG pCO2 33 L (35-45) mmHg ABG pO2 67 L (83-108) mmHg Sodium 132 L (137-145) mmol/L Carbon Dioxide 19 L (22-30) mmol/L BUN 78 H (9-20) mg/dL Creatinine 2.82 H (0.66-1.25) mg/dL Glucose 175 H (74-99) mg/dL POC Glucose (mg/dL) 234 H (70-110) mg/dL Calcium 7.7 L (8.4-10.2) mg/dL Phosphorus (2.5-4.5) mg/dL Procalcitonin (0.02-0.09) ng/mL Microbiology - Last 24 Hours (Table) 02/28/23 15:14 Blood Culture - Final Blood 02/28/23 15:14 Blood Culture - Final Blood Assessment and Plan Plan: Witnessed PEA cardiac arrest with a limited down time of less than 5 minutes. The cardiac arrest occurred on 02/28/2023. Patient remains intubated on mechanical ventilator. CAT scan of the brain that was done on 03/04/2023 showed no acute abnormalities. Patient is receiving daily sedation holidays. 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 The patient is currently on minimal doses of propofol. His level of alertness is improved since yesterday. He opens his eyes spontaneously, he tracks and he grimaces to deep painful stimulation. He is not following any commands. EEG is consistent with generalized slowing could be drug induced versus anoxic encephalopathy. There is no evidence of any ongoing seizure activity. Neurology is on the case. Acute hypoxemic respiratory failure, requiring intubation and mechanical ventilation. Left lower lobe community-acquired pneumonia and sepsis, secondary to Legionella pneumophila. Chest x-ray remains unchanged Severe cardiomyopathy with an ejection fraction of 20-25% Hypotension, probably due to a combination of septic and cardiogenic as the patient has impaired LV function. The patient is currently on low-dose norepinephrine Metabolic anion gap acidosis, secondary to lactic acidosis and sepsis. Chronic stage IV kidney disease Acute on chronic kidney disease, currently receiving hemodialysis. Last hemodialysis session was done yesterday Acute rhabdomyolysis, with mildly elevated CPK. Elevated troponins, likely related to supply/demand mismatch. Anemia of chronic disease, hemoglobin lower than baseline. Diabetes mellitus, insulin-dependent. Hyperlipidemia Diarrhea, patient has a fecal management system in Place. Stool for C. diff has been negative Plan Continue ventilator support. We'll change the tidal volume to 450 Complete hemodialysis per nephrology Continue Levaquin Check stool for C. diff colitis was negative Continue enteral feeding for nutritional support Continue pressors and wean it off slowly Will not give the patient any weaning trials off the mechanical ventilator as long as the patient's mental status is still not fully recovered. Continue Levemir insulin Continue rest of the supportive care Left upper extremity was noted to be swollen and we'll obtain an ultrasound Doppler to rule out DVT of the left upper extremity Condition remains critical Condition is critical. The family will be updated on his condition. We'll continue to follow make further recommendations based on his progress. His ev aluation was done in more than 30 minutes. Time with Patient: Greater than 30
[2023-03-06] MEDS: allopurinoL 100 MG TAB PO SCH (08:41)
[2023-03-06] MEDS: CHLORHEXIDINE GLUCONATE 15 ML CUP MUCOUS MEM SCH ×2 (08:41→20:15)
[2023-03-06] MEDS: PANTOPRAZOLE 40 MG/10 ML VIAL IVP SCH (08:41)
[2023-03-06] MEDS: FOLIC ACID 1 MG TAB PO SCH (08:41)
--- NOTE | 2023-03-06 09:11 | P.PN ---
Subjective Progress Note Date: 03/06/23 The patient is a 62-year-old male who presented to the hospital after mechanical fall. The patient was on the observation unit when he had a PEA arrest with approximate downtime of 5 minutes. He has remained sedated on the ventilator, however propofol is in the process of being weaned. He is more alert and opening his eyes to physical and verbal stimuli today. GENERAL: Ill-appearing, currently sedated on ventilator. NECK: Supple without JVD or thyromegaly. LUNGS: Breath sounds diminished to auscultation bilaterally. Respiration equal and unlabored. Bilateral rhonchi. HEART: Regular rate and rhythm without murmurs, rubs or gallops. S1 and S2 heard. EXTREMITIES: Normal range of motion, no edema. No clubbing or cyanosis. Palpable peripheral pulses, weak. Ulcers on bilateral great toes. TELEMETRY: Sinus rhythm LABS: WBC 14.4, hemoglobin 9.1, hematocrit 28.9, platelet 111, sodium 132, potassium 3.7, BUN 78, creatinine 2.82 IMPRESSION: Status post cardiac arrest Acute hypoxic respiratory failure Acute renal failure, on dialysis Cardiomyopathy with severe LV dysfunction Cardiogenic shock History of diabetes PLAN: Wean off of Levophed Once stable off of vasopressors, we'll start beta blockers for cardiomyopathy Further recommendations be responding clinical course I am dictating on behalf of Dr Los Bond's history/physical and assessment/plan. Objective - Vital Signs Vital signs: Vital Signs Temp 97.2 F L 03/05/23 20:00 Pulse 81 03/06/23 07:00 Resp 16 03/06/23 07:00 BP 131/69 03/05/23 13:26 Pulse Ox 94 L 03/06/23 07:00 FiO2 40 03/06/23 08:00 Intake & Output 03/05/23 03/06/23 03/06/23 18:59 06:59 18:59 Intake Total 4061.283 6161.714 96.23 Output Total 945 120 5 Balance 774.701 2880.714 91.23 Weight 82.9 kg Intake: IV 220 220 10 KVO 120 120 10 Levofloxacin 500Mg-D5w 100 Pmx 500 mg In Dextrose/ Water 1 100ml.bag @ 100 mls/hr IVPB Q48H [facility] Rx#: [id number] Piperacillin-Tazobactam 3 100 .375 gm In Sodium Chloride 0.9% 100 ml @ 25 mls/hr IVPB Q12HR [facility] Rx #:[id number] Intake, IV Titration 189.275 128.714 17.23 Amount Norepinephrine 4 mg In 129.064 53.408 17.23 Sodium Chloride 0.9% 250 ml @ 0.03 MCG/KG/MIN 8.14 mls/hr IV .Q24H [facility] Rx#: [id number] propofoL 1,000 mg In 60.211 75.306 Empty Bag 1 bag @ 15 MCG/ KG/MIN 6.409 mls/hr IV . [id number] [facility] Rx#:[id number] Oral 0 Tube Feeding 828 828 69 Hemodialysis 300 Other 90 60 Output: Urine 45 95 5 Stool 25 Hemodialysis 900 Other: Voiding Method Indwelling Catheter Indwelling Catheter ABP, PAP, CO, CI - Last Documented Arterial Blood Pressure 136/52 - Labs CBC & Chem 7: 03/06/23 04:10 03/06/23 04:10 Labs: Abnormal Lab Results - Last 24 Hours (Table) 03/01/23 03/05/23 03/05/23 Range/Units 07:06 03:45 11:38 WBC (3.8-10.6) k/uL RBC (4.30-5.90) m/uL Hgb (13.0-17.5) gm/dL Hct (39.0-53.0) % Plt Count (150-450) k/uL ABG pH (7.35-7.45) ABG pCO2 (35-45) mmHg ABG pO2 (83-108) mmHg Sodium (137-145) mmol/L Carbon Dioxide (22-30) mmol/L BUN (9-20) mg/dL Creatinine (0.66-1.25) mg/dL Glucose (74-99) mg/dL POC Glucose (mg/dL) 274 H (70-110) mg/dL Calcium (8.4-10.2) mg/dL Phosphorus 5.2 H (2.5-4.5) mg/dL Procalcitonin 86.90 H (0.02-0.09) ng/mL 03/05/23 03/06/23 03/06/23 Range/Units 18:00 00:18 04:10 WBC 14.4 H (3.8-10.6) k/uL RBC 3.27 L (4.30-5.90) m/uL Hgb 9.1 L (13.0-17.5) gm/dL Hct 28.9 L (39.0-53.0) % Plt Count 111 L (150-450) k/uL ABG pH (7.35-7.45) ABG pCO2 (35-45) mmHg ABG pO2 (83-108) mmHg Sodium (137-145) mmol/L Carbon Dioxide (22-30) mmol/L BUN (9-20) mg/dL Creatinine (0.66-1.25) mg/dL Glucose (74-99) mg/dL POC Glucose (mg/dL) 195 H 206 H (70-110) mg/dL Calcium (8.4-10.2) mg/dL Phosphorus (2.5-4.5) mg/dL Procalcitonin (0.02-0.09) ng/mL 03/06/23 03/06/23 03/06/23 Range/Units 04:10 05:41 06:04 WBC (3.8-10.6) k/uL RBC (4.30-5.90) m/uL Hgb (13.0-17.5) gm/dL Hct (39.0-53.0) % Plt Count (150-450) k/uL ABG pH 7.46 H (7.35-7.45) ABG pCO2 33 L (35-45) mmHg ABG pO2 67 L (83-108) mmHg Sodium 132 L (137-145) mmol/L Carbon Dioxide 19 L (22-30) mmol/L BUN 78 H (9-20) mg/dL Creatinine 2.82 H (0.66-1.25) mg/dL Glucose 175 H (74-99) mg/dL POC Glucose (mg/dL) 234 H (70-110) mg/dL Calcium 7.7 L (8.4-10.2) mg/dL Phosphorus (2.5-4.5) mg/dL Procalcitonin (0.02-0.09) ng/mL Microbiology - Last 24 Hours (Table) 02/28/23 15:14 Blood Culture - Final Blood 02/28/23 15:14 Blood Culture - Final Blood
--- NOTE | 2023-03-06 10:24 | P.PN ---
Subjective Progress Note Date: 03/06/23 62 year old M with PMH of CKD, hypertension, gout, diabetes mellitus presents to the ED after being found down. Patient is lethargic and sleepy and majority of history is provided by his father. Patient is single, lives alone, takes care of his ADLs and IADL's and normally very active. Father states he has been dealing with a cold over the past week. Symptoms include cough, rhinorrhea, malaise, diarrhea, nausea and vomiting, poor appetite. Last time seen normal was yesterday at 6:30PM when he went to bed. Found down this morning by his father, apparently tried to use the washroom last night, unable to make it to bed, laid on the floor all night. EMS was subsequently called. In the ED, he underwent extensive workup. Tmax 100.7F. HR in the 90s. BP 92/47. 92% on RA. CBC showed leukocytosis of 11.1, hemoglobin of 8.3 and platelet count 142. INR 1.2 CMP showed potassium of 5.4, bicarb 10, BUN 113, creatinine 8.47, glucose 324, total bilirubin 2. Lactic acid 2.1. CPK 1240. Troponin 0.457. Acetone negative. Influenza, RSV, COVID-19 negative. Chest x-ray reviewed by me showed large left sided PNA. EKG showed sinus rhythm with no ST elevation. CODE BLUE was called yesterday. Patient was found to be in PEA arrest. He was given multiple amps of sodium bicarb and epinephrine. Patient was intubated. ROSC was achieved and he was transferred to the ICU. Dr. Lacy, Dr. Juarez and Dr. Simon was contacted. Emergent hemodialysis access was obtained and patient was started on dialysis. 03/01 Intubated in the ICU. Levophed running at 0.07 mcg/kg/hr. Currently on Rocephin and Azithromycin for antibiotics. 03/02 Intubated in the ICU. Levophed running at 0.11 mcg/kg/hr. Legionella Ag +, started on Levaquin and started on Zosyn by ID, Rocephin/Azithromcyin discontinued. Echocardiogram shows EF 20-25% with moderate TR/MR thus Cardiology is consulted. 03/03 Intubated in the ICU. Levophed running at 0.08 mcg/kg/hr. Antibiotics include Levaquin and Zosyn for treatment of Legionella and anaerobic coverage. 03/04 Intubated in the ICU. Did not do too well with sedation holiday yesterday. Levophed running at 0.06 mcg/kg/hr. Antibiotics include Levaquin and Zosyn for treatment of Legionella and anaerobic coverage. 03/05 Intubated in the ICU. Underwent sedation holiday last 2 days, not ready for extubation. Levophed running at 0.03 mcg/kg/hr. Antibiotics include Levaquin and Zosyn for treatment of Legionella and anaerobic coverage. Neurology consulted to evaluated for anoxic brain injury, CT head ordered which shows chronic microvascular ischemic changes along with EEG. 03/06 Patient was seen and examined. Intubated in the ICU. Not ready for extubation. Currently on propofol at 15 mcg/kg/min. Levophed running at 0.02 mcg/kg/hr. Antibiotics include Levaquin and Zosyn for treatment of Legionella and anaerobic coverage. CBC WBC 14.4, Hg 9.1, Plt 111. ABG pH 7.46, pCO2 33. BMP Na 132, bicarb 19, BUN 78, Cr 2.82, glucose 175, Ca 7.7. CXR shows left sided opacities, similar to previous CXRs. EEG shows severe encephalopathy with no epileptiform activity. B12 1213. Folate 5.5. TSH 1.48. Ammonia < 9. HIT panel negative. All cultures negative so far. Venous duplex ordered for LUE swelling. Currently receiving tube feeds. General: Intubated Derm: warm, dry Head: atraumatic, normocephalic, symmetric Eyes: EOMI, no lid lag, anicteric sclera Mouth: no lip lesion, dry membranes moist Cardiovascular: S1S2 tachycardic, no murmur Lungs: Coarse BS bilateral, no rhonchi, no rales , no accessory muscle use Abdominal: soft, nontender to palpation, + BS Ext: no gross muscle atrophy, no edema, no contractures Neuro: Unable to perform Psych: Intubated PEA arrest Acute hypoxic respiratory failure Septic shock related to Legionaires PNA Acute kidney injury on chronic kidney disease Diabetes mellitus with hyperglycemia Troponin elevation HFrEF Acute metabolic encephalopathy Rhabdomyolysis Normocytic anemia Thrombocytopenia Chronic conditions: Hypertension, gout Resolved: Metabolic acidosis, Hyperkalemia, Hypokalemia Based on my assessment of this patient, this patient meets a high complexity level of care. Patient has an acute diagnosis of sepsis related to community acquired PNA that poses a threat to life or bodily function. Also has ROSANGELA on CKD with severe acidosis and hyperkalemia likely requiring dialysis. Complicated with troponin elevation and rhabomyolysis. PEA arrest: Status post ROSC 02/28. Acute hypoxic respiratory failure: Ventilator support. Pulm toileting. Septic shock related to Legionaries pneumonia: Hold Coreg. Legionella Ag +. Levaquin 500 mg IV Q48H, Zosyn 3.375 g IV TID started 03/02. Telemetry monitoring. Titrate Levophed to maintain MAP > 65. Pulmonology and ID on board. Acute kidney injury on chronic kidney disease: Multifactorial. Sepsis. Dehydration due to N/V, poor appetite and diarrhea. Underwent emergent HD on 02/28. Nephrology on board. Hemodialysis per Nephrology. Diabetes mellitus with hyperglycemia: Blood glucose in the 300s. Switch JOE to MISS Q6H. Added Novolog 7 units TID and Levemir 20 units QD. Troponin elevation: Likely due to demand ischemia. Trop flat. Echocardiogram as above. Cardiology consult. HFrEF: EF 20-25%. Cardiology on board. Acute metabolic encephalopathy: Likely related to above. Fall precautions. CT head negative. B12, TSH, Ammonia wnl. Folate borderline low, replaced orally. PT and OT consult when able to participate. Neurology on board. Rhabdomyolysis: Hold simvastatin. IV hydration as above. Normocytic anemia: Likely AOCD due to CKD. Aranesp ordered by Nephrology. Transfuse if Hg < 7. Thrombocytopenia: HIT panel negative. Heparin restarted. Father is the decision maker. FULL CODE. Heparin SQ for DVT prophylaxis. Protonix 40 mg IV QD for GI prophylaxis. I have reviewed the following senior staff consultant notes: Pulm, ID, Neuro, Nephro note. I have reviewed the results of the following tests: As above. I have ordered the following tests: CBC and BMP ordered for tomorrow morning. I have discussed the care of this patient with the following independent historian: I have independently interpreted the following test below: CXR as above. I have discussed the management of this patient with the following physician: This patient meets a high level of care for the following reasons: Patient requires IV vasopressors which requires intensive monitoring of hemodynamics. Patient requires IV anesthetics to be maintained on the ventilator which requires intensive monitoring of hemodynamics and respiratory toxicity. Patient requires adjustments in insulin which requires intensive monitoring for hypoglycemic episodes. Objective - Vital Signs Vital signs: Vital Signs Temp 97.2 F L 03/05/23 20:00 Pulse 81 03/06/23 07:00 Resp 16 03/06/23 07:00 BP 131/69 03/05/23 13:26 Pulse Ox 94 L 03/06/23 07:00 FiO2 40 03/06/23 08:00 Intake & Output 03/05/23 03/06/23 03/06/23 18:59 06:59 18:59 Intake Total 4678.840 6915.714 96.23 Output Total 945 120 5 Balance 648.264 7550.714 91.23 Weight 82.9 kg Intake: IV 220 220 10 KVO 120 120 10 Levofloxacin 500Mg-D5w 100 Pmx 500 mg In Dextrose/ Water 1 100ml.bag @ 100 mls/hr IVPB Q48H [facility] Rx#: [id number] Piperacillin-Tazobactam 3 100 .375 gm In Sodium Chloride 0.9% 100 ml @ 25 mls/hr IVPB Q12HR [facility] Rx #:[id number] Intake, IV Titration 189.275 128.714 17.23 Amount Norepinephrine 4 mg In 129.064 53.408 17.23 Sodium Chloride 0.9% 250 ml @ 0.03 MCG/KG/MIN 8.14 mls/hr IV .Q24H [facility] Rx#: [id number] propofoL 1,000 mg In 60.211 75.306 Empty Bag 1 bag @ 15 MCG/ KG/MIN 6.409 mls/hr IV . [id number] [facility] Rx#:[id number] Oral 0 Tube Feeding 828 828 69 Hemodialysis 300 Other 90 60 Output: Urine 45 95 5 Stool 25 Hemodialysis 900 Other: Voiding Method Indwelling Catheter Indwelling Catheter ABP, PAP, CO, CI - Last Documented Arterial Blood Pressure 136/52 - Labs CBC & Chem 7: 03/06/23 04:10 03/06/23 04:10 Labs: Abnormal Lab Results - Last 24 Hours (Table) 03/01/23 03/05/23 03/05/23 Range/Units 07:06 03:45 11:38 WBC (3.8-10.6) k/uL RBC (4.30-5.90) m/uL Hgb (13.0-17.5) gm/dL Hct (39.0-53.0) % Plt Count (150-450) k/uL ABG pH (7.35-7.45) ABG pCO2 (35-45) mmHg ABG pO2 (83-108) mmHg Sodium (137-145) mmol/L Carbon Dioxide (22-30) mmol/L BUN (9-20) mg/dL Creatinine (0.66-1.25) mg/dL Glucose (74-99) mg/dL POC Glucose (mg/dL) 274 H (70-110) mg/dL Calcium (8.4-10.2) mg/dL Phosphorus 5.2 H (2.5-4.5) mg/dL Procalcitonin 86.90 H (0.02-0.09) ng/mL 03/05/23 03/06/23 03/06/23 Range/Units 18:00 00:18 04:10 WBC 14.4 H (3.8-10.6) k/uL RBC 3.27 L (4.30-5.90) m/uL Hgb 9.1 L (13.0-17.5) gm/dL Hct 28.9 L (39.0-53.0) % Plt Count 111 L (150-450) k/uL ABG pH (7.35-7.45) ABG pCO2 (35-45) mmHg ABG pO2 (83-108) mmHg Sodium (137-145) mmol/L Carbon Dioxide (22-30) mmol/L BUN (9-20) mg/dL Creatinine (0.66-1.25) mg/dL Glucose (74-99) mg/dL POC Glucose (mg/dL) 195 H 206 H (70-110) mg/dL Calcium (8.4-10.2) mg/dL Phosphorus (2.5-4.5) mg/dL Procalcitonin (0.02-0.09) ng/mL 03/06/23 03/06/23 03/06/23 Range/Units 04:10 05:41 06:04 WBC (3.8-10.6) k/uL RBC (4.30-5.90) m/uL Hgb (13.0-17.5) gm/dL Hct (39.0-53.0) % Plt Count (150-450) k/uL ABG pH 7.46 H (7.35-7.45) ABG pCO2 33 L (35-45) mmHg ABG pO2 67 L (83-108) mmHg Sodium 132 L (137-145) mmol/L Carbon Dioxide 19 L (22-30) mmol/L BUN 78 H (9-20) mg/dL Creatinine 2.82 H (0.66-1.25) mg/dL Glucose 175 H (74-99) mg/dL POC Glucose (mg/dL) 234 H (70-110) mg/dL Calcium 7.7 L (8.4-10.2) mg/dL Phosphorus (2.5-4.5) mg/dL Procalcitonin (0.02-0.09) ng/mL Microbiology - Last 24 Hours (Table) 02/28/23 15:14 Blood Culture - Final Blood 02/28/23 15:14 Blood Culture - Final Blood
--- NOTE | 2023-03-06 11:06 | US ---
EXAMINATION TYPE: US venous doppler duplex UE LT DATE OF EXAM: 03/06/2023 COMPARISON: NONE CLINICAL INDICATION: Male, 62 years old with history of edema; ICU patient with swollen left arm SIDE PERFORMED: Left No deep venous thrombosis within the left internal jugular, subclavian, axillary, basilic, brachial, radial, or ulnar veins. Edema identified in the left forearm. Left Arm: Negative for DVTinternal echoes that are not compressible in left cephalic v- SVT IMPRESSION: 1. No deep venous thrombosis of the left upper extremity. 2. Superficial venous thrombosis of the cephalic vein.
[2023-03-06 11:46] LABS: Band Neutrophils % 9 %; Crenated RBC Present; Eosinophils # (M) 0.43 k/uL (0-0.7); Lymphocytes # (M) 0.86 k/uL (1.0-4.8); Metamyelocytes # (M) 0.29 k/uL (0); Metamyelocytes % 2 %; Monocytes # (M) 0.72 k/uL (0-1.0); Myelocytes # (M) 0.14 k/uL (0); Myelocytes % 1 %; Neutrophils % (M) 76 %; Nucleated Red Blood Cells 0 /100 WBC (0-0); Poikilocytosis (M) Present; Total Cells Counted 200
[2023-03-06 12:00] LABS: Glucose,Whole Blood 209 mg/dL (70-110)
--- NOTE | 2023-03-06 13:30 | P.PN ---
Subjective Patient is seen in follow-up for acute kidney injury on chronic kidney disease. Started on hemodialysis 03/01/2023. Oliguric but urine output starting to improve. Intubated. On Levophed. Receiving tube feeds. Vital signs are stable. On vasopressor support. General: Resting in bed. HEENT: Intubated. LUNGS: Scattered rhonchi. HEART: Rate and Rhythm are regular. ABDOMEN: No distention. EXTREMITITES: No edema. Objective - Vital Signs Vital signs: Vital Signs Temp 98.2 F 03/06/23 12:00 Pulse 84 03/06/23 12:15 Resp 18 03/06/23 12:15 BP 131/69 03/05/23 13:26 Pulse Ox 94 L 03/06/23 12:15 FiO2 40 03/06/23 12:00 Intake & Output 03/05/23 03/06/23 03/06/23 18:59 06:59 18:59 Intake Total 9693.762 6232.714 639.726 Output Total 945 120 100 Balance 203.237 9035.714 539.726 Weight 82.9 kg 82.9 kg Intake: IV 220 220 110 KVO 120 120 110 Levofloxacin 500Mg-D5w 100 Pmx 500 mg In Dextrose/ Water 1 100ml.bag @ 100 mls/hr IVPB Q48H [facility] Rx#: [id number] Piperacillin-Tazobactam 3 100 .375 gm In Sodium Chloride 0.9% 100 ml @ 25 mls/hr IVPB Q12HR [facility] Rx #:[id number] Intake, IV Titration 189.275 128.714 77.726 Amount Norepinephrine 4 mg In 129.064 53.408 29.124 Sodium Chloride 0.9% 250 ml @ 0.03 MCG/KG/MIN 8.14 mls/hr IV .Q24H [facility] Rx#: [id number] propofoL 1,000 mg In 60.211 75.306 48.602 Empty Bag 1 bag @ 15 MCG/ KG/MIN 6.409 mls/hr IV . [id number] [facility] Rx#:[id number] Oral 0 Tube Feeding 828 828 392 Hemodialysis 300 Other 90 60 60 Output: Urine 45 95 100 Stool 25 Hemodialysis 900 Other: Voiding Method Indwelling Catheter Indwelling Catheter Indwelling Catheter ABP, PAP, CO, CI - Last Documented Arterial Blood Pressure 116/49 - Labs CBC & Chem 7: 03/06/23 04:10 03/06/23 04:10 Labs: Abnormal Lab Results - Last 24 Hours (Table) 03/01/23 03/05/23 03/06/23 Range/Units 07:06 18:00 00:18 WBC (3.8-10.6) k/uL RBC (4.30-5.90) m/uL Hgb (13.0-17.5) gm/dL Hct (39.0-53.0) % Plt Count (150-450) k/uL Neutrophils # (Manual) (1.3-7.7) k/uL Lymphocytes # (Manual) (1.0-4.8) k/uL Metamyelocytes # (Man) (0) k/uL Myelocytes # (Manual) (0) k/uL ABG pH (7.35-7.45) ABG pCO2 (35-45) mmHg ABG pO2 (83-108) mmHg Sodium (137-145) mmol/L Carbon Dioxide (22-30) mmol/L BUN (9-20) mg/dL Creatinine (0.66-1.25) mg/dL Glucose (74-99) mg/dL POC Glucose (mg/dL) 195 H 206 H (70-110) mg/dL Calcium (8.4-10.2) mg/dL Procalcitonin 86.90 H (0.02-0.09) ng/mL 03/06/23 03/06/23 03/06/23 Range/Units 04:10 04:10 05:41 WBC 14.4 H (3.8-10.6) k/uL RBC 3.27 L (4.30-5.90) m/uL Hgb 9.1 L (13.0-17.5) gm/dL Hct 28.9 L (39.0-53.0) % Plt Count 111 L (150-450) k/uL Neutrophils # (Manual) 12.20 H (1.3-7.7) k/uL Lymphocytes # (Manual) 0.86 L (1.0-4.8) k/uL Metamyelocytes # (Man) 0.29 H (0) k/uL Myelocytes # (Manual) 0.14 H (0) k/uL ABG pH 7.46 H (7.35-7.45) ABG pCO2 33 L (35-45) mmHg ABG pO2 67 L (83-108) mmHg Sodium 132 L (137-145) mmol/L Carbon Dioxide 19 L (22-30) mmol/L BUN 78 H (9-20) mg/dL Creatinine 2.82 H (0.66-1.25) mg/dL Glucose 175 H (74-99) mg/dL POC Glucose (mg/dL) (70-110) mg/dL Calcium 7.7 L (8.4-10.2) mg/dL Procalcitonin (0.02-0.09) ng/mL 03/06/23 03/06/23 Range/Units 06:04 11:58 WBC (3.8-10.6) k/uL RBC (4.30-5.90) m/uL Hgb (13.0-17.5) gm/dL Hct (39.0-53.0) % Plt Count (150-450) k/uL Neutrophils # (Manual) (1.3-7.7) k/uL Lymphocytes # (Manual) (1.0-4.8) k/uL Metamyelocytes # (Man) (0) k/uL Myelocytes # (Manual) (0) k/uL ABG pH (7.35-7.45) ABG pCO2 (35-45) mmHg ABG pO2 (83-108) mmHg Sodium (137-145) mmol/L Carbon Dioxide (22-30) mmol/L BUN (9-20) mg/dL Creatinine (0.66-1.25) mg/dL Glucose (74-99) mg/dL POC Glucose (mg/dL) 234 H 209 H (70-110) mg/dL Calcium (8.4-10.2) mg/dL Procalcitonin (0.02-0.09) ng/mL Microbiology - Last 24 Hours (Table) 02/28/23 15:14 Blood Culture - Final Blood 02/28/23 15:14 Blood Culture - Final Blood Assessment and Plan Plan: Assessment: 1. Acute kidney injury secondary to ATN secondary to cardiopulmonary arrest. S tarted on hemodialysis 03/01/2023. Has femoral catheter. Oliguric. 2. Cardiopulmonary arrest. 3. 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 CKD appears to have progressed with creatinine in the range of 3.1-3.4 in April and July 2022. 4. Chronic kidney disease mineral bone disease maintained on Calcitrol. 5. Diabetes mellitus. 6. Shock maintained on Levophed. 7. Anemia of chronic kidney disease. High ferritin noted. On Aranesp. Plan: Hemodialysis tomorrow. Status post IV Lasix yesterday with slight improvement in urine output. Phosphorus 5.2 dated 03/05/2023. Maintain midodrine. Wean FiO2 and vasopressors. Receiving tube feeds.
--- NOTE | 2023-03-06 13:36 | P.PN ---
Subjective Progress Note Date: 03/06/23 Principal diagnosis: Sepsis and Legionella pneumonia Patient is a 62-year-old male with a past medical history significant for diabetes mellitus hypertension renal insufficiency patient was brought into the ER concerning for weakness and did have some respiratory symptoms patient did have a fever and worsening respiratory status requiring intubation and admission to the ICU the patient urine for digital antigen came back positive evening of 03/01/2023. On today's evaluation that is 03/06/2023 patient remains to be afebrile, the patient remains to be intubated on the vent with an FiO2 is down to 40%, patient is having more secretions through the ET per the nursing staff and has also developed bradycardia requiring placement of fecal management system Patient white count is slightly up to 14.4 creatinine is 2.82, blood and sputum cultures so far negative, urine for Legionella antigen is positive, stool for C. diff is negative Objective - Vital Signs Vital signs: Vital Signs Temp 98.2 F 03/06/23 12:00 Pulse 84 03/06/23 12:15 Resp 18 03/06/23 12:15 BP 131/69 03/05/23 13:26 Pulse Ox 94 L 03/06/23 12:15 FiO2 40 03/06/23 12:00 Intake & Output 03/05/23 03/06/23 03/06/23 18:59 06:59 18:59 Intake Total 2916.434 1047.714 639.726 Output Total 945 120 100 Balance 034.365 8392.714 539.726 Weight 82.9 kg 82.9 kg Intake: IV 220 220 110 KVO 120 120 110 Levofloxacin 500Mg-D5w 100 Pmx 500 mg In Dextrose/ Water 1 100ml.bag @ 100 mls/hr IVPB Q48H [facility] Rx#: [id number] Piperacillin-Tazobactam 3 100 .375 gm In Sodium Chloride 0.9% 100 ml @ 25 mls/hr IVPB Q12HR [facility] Rx #:[id number] Intake, IV Titration 189.275 128.714 77.726 Amount Norepinephrine 4 mg In 129.064 53.408 29.124 Sodium Chloride 0.9% 250 ml @ 0.03 MCG/KG/MIN 8.14 mls/hr IV .Q24H [facility] Rx#: [id number] propofoL 1,000 mg In 60.211 75.306 48.602 Empty Bag 1 bag @ 15 MCG/ KG/MIN 6.409 mls/hr IV . [id number] [facility] Rx#:[id number] Oral 0 Tube Feeding 828 828 392 Hemodialysis 300 Other 90 60 60 Output: Urine 45 95 100 Stool 25 Hemodialysis 900 Other: Voiding Method Indwelling Catheter Indwelling Catheter Indwelling Catheter ABP, PAP, CO, CI - Last Documented Arterial Blood Pressure 116/49 - Exam GENERAL DESCRIPTION: Middle-aged male intubated on the vent RESPIRATORY SYSTEM: Unlabored breathing , decreased breath sound at the base HEART: S1 S2 regular rate and rhythm , ABDOMEN: Soft , no tenderness EXTREMITIES: No edema feet - Labs CBC & Chem 7: 03/06/23 04:10 03/06/23 04:10 Labs: Abnormal Lab Results - Last 24 Hours (Table) 03/01/23 03/05/23 03/06/23 Range/Units 07:06 18:00 00:18 WBC (3.8-10.6) k/uL RBC (4.30-5.90) m/uL Hgb (13.0-17.5) gm/dL Hct (39.0-53.0) % Plt Count (150-450) k/uL Neutrophils # (Manual) (1.3-7.7) k/uL Lymphocytes # (Manual) (1.0-4.8) k/uL Metamyelocytes # (Man) (0) k/uL Myelocytes # (Manual) (0) k/uL ABG pH (7.35-7.45) ABG pCO2 (35-45) mmHg ABG pO2 (83-108) mmHg Sodium (137-145) mmol/L Carbon Dioxide (22-30) mmol/L BUN (9-20) mg/dL Creatinine (0.66-1.25) mg/dL Glucose (74-99) mg/dL POC Glucose (mg/dL) 195 H 206 H (70-110) mg/dL Calcium (8.4-10.2) mg/dL Procalcitonin 86.90 H (0.02-0.09) ng/mL 03/06/23 03/06/23 03/06/23 Range/Units 04:10 04:10 05:41 WBC 14.4 H (3.8-10.6) k/uL RBC 3.27 L (4.30-5.90) m/uL Hgb 9.1 L (13.0-17.5) gm/dL Hct 28.9 L (39.0-53.0) % Plt Count 111 L (150-450) k/uL Neutrophils # (Manual) 12.20 H (1.3-7.7) k/uL Lymphocytes # (Manual) 0.86 L (1.0-4.8) k/uL Metamyelocytes # (Man) 0.29 H (0) k/uL Myelocytes # (Manual) 0.14 H (0) k/uL ABG pH 7.46 H (7.35-7.45) ABG pCO2 33 L (35-45) mmHg ABG pO2 67 L (83-108) mmHg Sodium 132 L (137-145) mmol/L Carbon Dioxide 19 L (22-30) mmol/L BUN 78 H (9-20) mg/dL Creatinine 2.82 H (0.66-1.25) mg/dL Glucose 175 H (74-99) mg/dL POC Glucose (mg/dL) (70-110) mg/dL Calcium 7.7 L (8.4-10.2) mg/dL Procalcitonin (0.02-0.09) ng/mL 03/06/23 03/06/23 Range/Units 06:04 11:58 WBC (3.8-10.6) k/uL RBC (4.30-5.90) m/uL Hgb (13.0-17.5) gm/dL Hct (39.0-53.0) % Plt Count (150-450) k/uL Neutrophils # (Manual) (1.3-7.7) k/uL Lymphocytes # (Manual) (1.0-4.8) k/uL Metamyelocytes # (Man) (0) k/uL Myelocytes # (Manual) (0) k/uL ABG pH (7.35-7.45) ABG pCO2 (35-45) mmHg ABG pO2 (83-108) mmHg Sodium (137-145) mmol/L Carbon Dioxide (22-30) mmol/L BUN (9-20) mg/dL Creatinine (0.66-1.25) mg/dL Glucose (74-99) mg/dL POC Glucose (mg/dL) 234 H 209 H (70-110) mg/dL Calcium (8.4-10.2) mg/dL Procalcitonin (0.02-0.09) ng/mL Microbiology - Last 24 Hours (Table) 02/28/23 15:14 Blood Culture - Final Blood 02/28/23 15:14 Blood Culture - Final Blood Assessment and Plan (1) Legionella pneumonia Current Visit: Yes Status: Acute Code(s): A48.1 - LEGIONNAIRES' DISEASE SNOMED Code(s): 852357193 (2) Sepsis Current Visit: Yes Status: Acute Code(s): A41.9 - SEPSIS, UNSPECIFIED ORGANISM SNOMED Code(s): 18340576 Plan: 1patient presented to hospital with sepsis in this patient with a fever tachycardia hypotension source is likely left lower lobe pneumonia in this patient with weakness lethargy and decreased level of responsiveness and the question of community-acquired versus aspiration pneumonia 2-urine for Legionella antigen is positive, sputum cultures are currently negative for any resistant pathogen 3-Patient fever has resolved and the patient white count has normalized 4- patient to continue with Levaquin , has developed significant diarrhea possible antibiotic associated Zosyn has been discontinued will see clinical response Dictation was produced using 800APP dictation software. please excuse any grammatical, word or spelling errors. Time with Patient: Less than 30
--- NOTE | 2023-03-06 14:32 | CDI ---
Documentation Clarification Form Date: 03/06/2023 02:29:47 PM From: Elaine Arora RN, CCDS Admit Date: 02/28/2023 02:39:00 PM Patient Name: Franky Clay Visit Number: [id number] Discharge Date: ATTENTION: The Clinical Documentation Specialists (CDI) and [facility] Coding Staff appreciate your assistance in clarifying documentation. Please respond to the clarification below the line at the bottom and electronically sign. The CDI & [facility] Coding staff will review the response and follow-up if needed. Please note: Queries are made part of the Legal Health Record. If you have any questions, please contact the author of this message via ITS. Dr. Joselo Roman Rhabdomyolysis is documented in the H/P and subsequent progress notes. Additional clarification regarding the type of rhabdomyolysis is requested. History/Risk Factors: Diabetes Mellitus, Hypertension, Skin Disorder, CKD, Clinical Indicators: 62-year-old male presents to the ED after being found down. Last seen at 6:30PM when he went to bed. Found down this morning by his father, apparently tried to use the washroom last night, unable to make it to bed, laid on the floor all night. Ext: no gross muscle atrophy, no edema, no contractures 02/28 Lab: WBC 11.1 HGB 8.3, BUN 113, CR 8.47 Lactic acid 2.1, CPK 1240. Treatment: Cardiac/Telemetry Monitoring/ICU .9NS 1,000 Bolus x 2 02/28 then at 100MLS HR 03/03 Monitor Labs CPK, Renal function per orders. Please clarify the type of rhabdomyolysis, if known: [ ] Traumatic rhabdomyolysis due to fall [ x ] Traumatic rhabdomyolysis due to prolonged immobility [ ] Non traumatic rhabdomyolysis due to infection (please specify) [ ] Other, please specify [ ] Unable to Determine (Template Last Revised: June 2020) MTDD
[2023-03-06 16:55] LABS: Glucose,Whole Blood 172 mg/dL (70-110)
--- NOTE | 2023-03-06 17:55 | P.PN ---
Subjective Progress Note Date: 03/06/23 03/06/2023: Patient was seen for a follow-up. Patient is laying in the bed, intubated, on propofol 20 mcg/kg per minute. Patient is off norepinephrine. Please refer to examination below. 03/05/2023: Patient initially seen by Dr. Francisco Lacy. Please refer to his note for details. Patient is a 62-year-old male with pneumonia and cardiac arrest for less than [address] head did not reveal any acute process. Patient was seen for follow-up. Patient currently on norepinephrine in 0.02 mcg/kg per minute with a rate of 5.32 mL per hour. Also on propofol 50 g/kg per minute. Patient is laying in the bed. He did open his eyes to calling his name. Please refer to examination below. No obvious seizure-like activity noted. Objective - Vital Signs Vital signs: Vital Signs Temp 97.8 F 03/06/23 16:00 Pulse 84 03/06/23 17:00 Resp 20 03/06/23 17:00 BP 131/69 03/05/23 13:26 Pulse Ox 95 03/06/23 17:00 FiO2 40 03/06/23 16:00 Intake & Output 03/05/23 03/06/23 03/06/23 18:59 06:59 18:59 Intake Total 5244.497 6277.714 1008.208 Output Total 945 120 155 Balance 125.473 0760.714 853.208 Weight 82.9 kg 82.9 kg Intake: IV 220 220 210 KVO 120 120 210 Levofloxacin 500Mg-D5w 100 Pmx 500 mg In Dextrose/ Water 1 100ml.bag @ 100 mls/hr IVPB Q48H [facility] Rx#: [id number] Piperacillin-Tazobactam 3 100 .375 gm In Sodium Chloride 0.9% 100 ml @ 25 mls/hr IVPB Q12HR [facility] Rx #:[id number] Intake, IV Titration 189.275 128.714 81.208 Amount Norepinephrine 4 mg In 129.064 53.408 32.606 Sodium Chloride 0.9% 250 ml @ 0.03 MCG/KG/MIN 8.14 mls/hr IV .Q24H [facility] Rx#: [id number] propofoL 1,000 mg In 60.211 75.306 48.602 Empty Bag 1 bag @ 15 MCG/ KG/MIN 6.409 mls/hr IV . [id number] [facility] Rx#:[id number] Oral 0 Tube Feeding 828 828 627 Hemodialysis 300 Other 90 60 90 Output: Urine 45 95 155 Stool 25 Hemodialysis 900 Other: Voiding Method Indwelling Catheter Indwelling Catheter Indwelling Catheter ABP, PAP, CO, CI - Last Documented Arterial Blood Pressure 126/52 - Exam General: Lying in bed and does not appear in acute distress. HENT: Supple neck. Respiratory: Intubated on ventilator. Neuro: Limited. Patient is on IV Propofol 20 mcg/kg/min. Is awake but is not verbalizing or following commands. Pupils are round, equal and reactive to light. No facial weakness. No facial grimacing with painful stimuli. Patient more alert and awake, making eye contact, and tracking. Has intact gag/cough reflex. Motor: Limited. Not withdrawaling to painful stimuli. No spontaneous movement. He had very minimal grimacing with painful stimuli. Reflexes: 1+ throughout. No seizure like activity noted. Both feet are bandaged. - Labs CBC & Chem 7: 03/06/23 04:10 03/06/23 04:10 Labs: Abnormal Lab Results - Last 24 Hours (Table) 03/01/23 03/05/23 03/06/23 Range/Units 07:06 18:00 00:18 WBC (3.8-10.6) k/uL RBC (4.30-5.90) m/uL Hgb (13.0-17.5) gm/dL Hct (39.0-53.0) % Plt Count (150-450) k/uL Neutrophils # (Manual) (1.3-7.7) k/uL Lymphocytes # (Manual) (1.0-4.8) k/uL Metamyelocytes # (Man) (0) k/uL Myelocytes # (Manual) (0) k/uL ABG pH (7.35-7.45) ABG pCO2 (35-45) mmHg ABG pO2 (83-108) mmHg Sodium (137-145) mmol/L Carbon Dioxide (22-30) mmol/L BUN (9-20) mg/dL Creatinine (0.66-1.25) mg/dL Glucose (74-99) mg/dL POC Glucose (mg/dL) 195 H 206 H (70-110) mg/dL Calcium (8.4-10.2) mg/dL Procalcitonin 86.90 H (0.02-0.09) ng/mL 03/06/23 03/06/23 03/06/23 Range/Units 04:10 04:10 05:41 WBC 14.4 H (3.8-10.6) k/uL RBC 3.27 L (4.30-5.90) m/uL Hgb 9.1 L (13.0-17.5) gm/dL Hct 28.9 L (39.0-53.0) % Plt Count 111 L (150-450) k/uL Neutrophils # (Manual) 12.20 H (1.3-7.7) k/uL Lymphocytes # (Manual) 0.86 L (1.0-4.8) k/uL Metamyelocytes # (Man) 0.29 H (0) k/uL Myelocytes # (Manual) 0.14 H (0) k/uL ABG pH 7.46 H (7.35-7.45) ABG pCO2 33 L (35-45) mmHg ABG pO2 67 L (83-108) mmHg Sodium 132 L (137-145) mmol/L Carbon Dioxide 19 L (22-30) mmol/L BUN 78 H (9-20) mg/dL Creatinine 2.82 H (0.66-1.25) mg/dL Glucose 175 H (74-99) mg/dL POC Glucose (mg/dL) (70-110) mg/dL Calcium 7.7 L (8.4-10.2) mg/dL Procalcitonin (0.02-0.09) ng/mL 03/06/23 03/06/23 03/06/23 Range/Units 06:04 11:58 16:54 WBC (3.8-10.6) k/uL RBC (4.30-5.90) m/uL Hgb (13.0-17.5) gm/dL Hct (39.0-53.0) % Plt Count (150-450) k/uL Neutrophils # (Manual) (1.3-7.7) k/uL Lymphocytes # (Manual) (1.0-4.8) k/uL Metamyelocytes # (Man) (0) k/uL Myelocytes # (Manual) (0) k/uL ABG pH (7.35-7.45) ABG pCO2 (35-45) mmHg ABG pO2 (83-108) mmHg Sodium (137-145) mmol/L Carbon Dioxide (22-30) mmol/L BUN (9-20) mg/dL Creatinine (0.66-1.25) mg/dL Glucose (74-99) mg/dL POC Glucose (mg/dL) 234 H 209 H 172 H (70-110) mg/dL Calcium (8.4-10.2) mg/dL Procalcitonin (0.02-0.09) ng/mL Microbiology - Last 24 Hours (Table) 02/28/23 20:10 Legionella Culture - Preliminary Sputum 02/28/23 15:14 Blood Culture - Final Blood 02/28/23 15:14 Blood Culture - Final Blood Assessment and Plan Assessment: This is a 63-year-old gentleman who presented to the emergency department on 02/28/2022 since was found on the floor by his father and he had generalized weakness. Patient has been having recent cough and has been taken DayQuil and NyQuil. It seems while he was in observation the patient had witnessed PEA car diac arrest possibly about less than 5 minutes. He has Legionella pneumonia and continues to be severely encephalopathic. Altered mental status due to septic encephalopathy from pneumonia and metabolic encephalopathy in which had acute on chronic renal failure. Some component also due to medication effect (Propofol). Cannot rule out anoxic encephalopathy/brain injury from cardiopulmonary arrest. Witness cardiopulmonary arrest lasting less then 5 minutes. Per ICU nurse, unsure exact time frame. Community acquire pneumonia/sepsis due to Legionalla Pneumonia Acute on chronic renal faliure and getting dialysis during this admission--trending down Acute hypoxemic respiratory failure requiring intubation DM Acute rhabdomyolysis--likely since was found down, now normal. Plan: * CT head revealed no acute intracranial abnormality. Mild to moderate generalized brain atrophy and chronic microvascular ischemic changes. I personally reviewed CT head, agree with the findings. There is slight prominence of the ventricles, slightly more than amount of cortical atrophy. Clinical correlation recommended for possible NPH. There is evidence of old lacunar stroke left thalamus. * EEG was performed, which was abnormal due to background slowing of moderate to severe degree. This is suggestive of generalized cerebral dysfunction, as can be seen with toxic metabolic encephalopathy or related to diffuse structural brain abnormality or medication effect. Clinical correlation is recommended. No epileptiform activity was seen. * TSH 1.48, ammonia level < 9, Vitamin B12 1213, folate 5.50 and repeat CK level 63. All tests normal, but folate borderline, we'll start folate 1 mg daily. * I.D. is on board. * Neurologically, patient is slightly better, as he is more alert and awake and tracking slightly better. * Will defer the rest of medical management to the primary team and other specialist. * Neurology will follow clinically. Discussed with patient's nurse.
[2023-03-06] MEDS: HEPARIN SODIUM,PORCINE 5,000 UNIT/ML 1 ML VIAL SQ SCH (20:15)
[2023-03-07 00:10] LABS: Glucose,Whole Blood 149 mg/dL (70-110)
[2023-03-07] MEDS: INSULIN ASPART (NovoLOG) 100 UNIT/ML VIAL SQ SCH ×8 (00:10→17:49)
[2023-03-07 05:06] LABS: African American GFR (CKD) 19 (>60 ml/min/1.73 sqM); Anion Gap 16 mmol/L; Calcium 8.1 mg/dL (8.4-10.2); Carbon Dioxide 17 mmol/L (22-30); Chloride 100 mmol/L (98-107); Glucose 143 mg/dL (74-99); Magnesium 1.8 mg/dL (1.6-2.3); Non-African American GFR(CKD) 17 (>60 ml/min/1.73 sqM); Potassium 4.3 mmol/L (3.5-5.1); Sodium 133 mmol/L (137-145)
[2023-03-07 05:09] LABS: Blood Urea Nitrogen 104 mg/dL (9-20)
[2023-03-07 05:47] LABS: ABG HCO3 21 mmol/L (21-25); ABG Oxygen Saturation 97.9 % (94-97); ABG PCO2 31 mmHg (35-45); ABG PH 7.44 (7.35-7.45); ABG PO2 94 mmHg (83-108); ABG TCO2 22 mmol/L (19-24); Allen Test Performed? Yes
[2023-03-07] MEDS ORDERED: MAGNESIUM SULFATE-D5W PMX 1 GM in DEXTROSE/WATER 1 100ML.BAG IVPB ONE (05:53)
[2023-03-07 05:56] LABS: HCT 26.7 % (39.0-53.0); HGB 8.7 gm/dL (13.0-17.5); MCH 28.2 pg (25.0-35.0); MCHC 32.8 g/dL (31.0-37.0); Mean Platelet Volume 10.7; Platelet Count 132 k/uL (150-450); RDW 15.3 % (11.5-15.5); WBC 17.5 k/uL (3.8-10.6)
[2023-03-07 05:57] LABS: Glucose,Whole Blood 172 mg/dL (70-110)
[2023-03-07] MEDS: INSULIN DETEMIR (LEVEMIR) 100 UNIT/ML SYR SQ SCH (06:37)
[2023-03-07] MEDS: MIDODRINE 5 MG TAB PO SCH ×3 (06:41→16:40)
[2023-03-07 06:59] LABS: Band Neutrophils % 10 %; Eosinophils # (M) 0.18 k/uL (0-0.7); Metamyelocytes # (M) 0.53 k/uL (0); Metamyelocytes % 3 %; Monocytes # (M) 0.88 k/uL (0-1.0); Myelocytes # (M) 0.18 k/uL (0); Myelocytes % 1 %; Neutrophils % (M) 78 %; Nucleated Red Blood Cells 0 /100 WBC (0-0); RBC Morphology Normal; Total Cells Counted 200; Toxic Granulation Present
--- NOTE | 2023-03-07 07:32 | XR ---
EXAMINATION TYPE: XR chest 1V portable DATE OF EXAM: 03/07/2023 COMPARISON: 03/06/2023 INDICATION: Mechanical ventilation, difficulty breathing TECHNIQUE: Single frontal view of the chest is obtained. FINDINGS: The heart size is prominent. The pulmonary vasculature is normal. Left lower lobe infiltrate is present. Air bronchograms are evident. Small left pleural effusion is p resent. Findings are worsening from comparison. Endotracheal tube tip is above the anika. Nasogastric tube transverses the thorax. Left central veno us catheter tip is in the distal superior vena cava region IMPRESSION: 1. Increasing infiltrate and pleural effusion left lung base. 2. Lines and catheters discussed above.
[2023-03-07] MEDS: PANTOPRAZOLE 40 MG/10 ML VIAL IVP SCH (08:39)
[2023-03-07] MEDS: CHLORHEXIDINE GLUCONATE 15 ML CUP MUCOUS MEM SCH ×2 (08:39→20:35)
[2023-03-07] MEDS: FOLIC ACID 1 MG TAB PO SCH (08:39)
[2023-03-07] MEDS: allopurinoL 100 MG TAB PO SCH (08:39)
[2023-03-07] MEDS: HEPARIN SODIUM,PORCINE 5,000 UNIT/ML 1 ML VIAL SQ SCH ×2 (08:39→20:35)
--- NOTE | 2023-03-07 09:44 | P.PN ---
Subjective Progress Note Date: 03/07/23 The patient is a 62-year-old male who presented to the hospital after mechanical fall. The patient was on the observation unit when he had a PEA arrest with approximate downtime of 5 minutes. Over the last 24 hours he has been weaned off of the propofol and remains off of vasopressors. He is more alert at the time of my exam this morning. His eyes remain open, tracking conversation. GENERAL: Ill-appearing, well-nourished male. NECK: Supple without JVD or thyromegaly. LUNGS: Breath sounds diminished to auscultation bilaterally. Respiration equal and unlabored. No wheezes or crackles. HEART: Regular rate and rhythm without murmurs, rubs or gallops. S1 and S2 heard. EXTREMITIES: Normal range of motion, no edema. No clubbing or cyanosis. Palpable peripheral pulses, weak. Ulcers on bilateral great toes. TELEMETRY: Sinus rhythm LABS: WBC 17.5, hemoglobin 8.7, hematocrit 26.7, platelet 132, sodium 133, potassium 4.3, BUN 104, creatinine 3.60, magnesium 1.8 IMPRESSION: Status post cardiac arrest, PEA Acute hypoxic respiratory failure Acute renal failure, on dialysis Cardiomyopathy with severe LV dysfunction Cardiogenic shock History of diabetes PLAN: Start Toprol-XL 25 mg daily for cardiomyopathy No plans for coronary angiogram at this time due to renal disease Further recommendations to be responding clinical course I am dictating on behalf of Dr Los Bond's history/physical and assessment/plan. Objective - Vital Signs Vital signs: Vital Signs Temp 97.9 F 03/07/23 04:00 Pulse 87 03/07/23 07:00 Resp 16 03/07/23 07:00 BP 131/69 03/05/23 13:26 Pulse Ox 96 03/07/23 07:00 FiO2 40 03/07/23 07:42 Intake & Output 03/06/23 03/07/23 03/07/23 18:59 06:59 18:59 Intake Total 4973.679 2589.923 Output Total 155 295 Balance 922.921 848.923 Weight 82.9 kg 85.3 kg Intake: IV 230 350 KVO 230 250 Magnesium Sulfate-D5w Pmx 100 1 gm In Dextrose/Water 1 100ml.bag @ 100 mls/hr IVPB ONCE [facility] Rx#: [id number] Intake, IV Titration 83.921 92.923 Amount Norepinephrine 4 mg In 35.319 7.506 Sodium Chloride 0.9% 250 ml @ 0.03 MCG/KG/MIN 8.14 mls/hr IV .Q24H [facility] Rx#: [id number] propofoL 1,000 mg In 48.602 85.417 Empty Bag 1 bag @ 15 MCG/ KG/MIN 6.409 mls/hr IV . [id number] [facility] Rx#:[id number] Tube Feeding 674 611 Other 90 90 Output: Urine 155 195 Stool 100 Other: Voiding Method Indwelling Catheter Indwelling Catheter ABP, PAP, CO, CI - Last Documented Arterial Blood Pressure 127/53 - Labs CBC & Chem 7: 03/07/23 04:40 03/07/23 04:40 Labs: Abnormal Lab Results - Last 24 Hours (Table) 03/06/23 03/06/23 03/06/23 Range/Units 04:10 04:10 11:58 WBC (3.8-10.6) k/uL RBC (4.30-5.90) m/uL Hgb (13.0-17.5) gm/dL Hct (39.0-53.0) % Plt Count (150-450) k/uL Neutrophils # (Manual) 12.20 H (1.3-7.7) k/uL Lymphocytes # (Manual) 0.86 L (1.0-4.8) k/uL Metamyelocytes # (Man) 0.29 H (0) k/uL Myelocytes # (Manual) 0.14 H (0) k/uL ABG pCO2 (35-45) mmHg ABG O2 Saturation (94-97) % Sodium 132 L (137-145) mmol/L Carbon Dioxide 19 L (22-30) mmol/L BUN 78 H (9-20) mg/dL Creatinine 2.82 H (0.66-1.25) mg/dL Glucose 175 H (74-99) mg/dL POC Glucose (mg/dL) 209 H (70-110) mg/dL Calcium 7.7 L (8.4-10.2) mg/dL 03/06/23 03/07/23 03/07/23 Range/Units 16:54 00:08 04:40 WBC 17.5 H (3.8-10.6) k/uL RBC 3.10 L (4.30-5.90) m/uL Hgb 8.7 L (13.0-17.5) gm/dL Hct 26.7 L (39.0-53.0) % Plt Count 132 L (150-450) k/uL Neutrophils # (Manual) 15.40 H (1.3-7.7) k/uL Lymphocytes # (Manual) 0.70 L (1.0-4.8) k/uL Metamyelocytes # (Man) 0.53 H (0) k/uL Myelocytes # (Manual) 0.18 H (0) k/uL ABG pCO2 (35-45) mmHg ABG O2 Saturation (94-97) % Sodium (137-145) mmol/L Carbon Dioxide (22-30) mmol/L BUN (9-20) mg/dL Creatinine (0.66-1.25) mg/dL Glucose (74-99) mg/dL POC Glucose (mg/dL) 172 H 149 H (70-110) mg/dL Calcium (8.4-10.2) mg/dL 03/07/23 03/07/23 03/07/23 Range/Units 04:40 05:30 05:55 WBC (3.8-10.6) k/uL RBC (4.30-5.90) m/uL Hgb (13.0-17.5) gm/dL Hct (39.0-53.0) % Plt Count (150-450) k/uL Neutrophils # (Manual) (1.3-7.7) k/uL Lymphocytes # (Manual) (1.0-4.8) k/uL Metamyelocytes # (Man) (0) k/uL Myelocytes # (Manual) (0) k/uL ABG pCO2 31 L (35-45) mmHg ABG O2 Saturation 97.9 H (94-97) % Sodium 133 L (137-145) mmol/L Carbon Dioxide 17 L (22-30) mmol/L BUN 104 H* (9-20) mg/dL Creatinine 3.68 H (0.66-1.25) mg/dL Glucose 143 H (74-99) mg/dL POC Glucose (mg/dL) 172 H (70-110) mg/dL Calcium 8.1 L (8.4-10.2) mg/dL Microbiology - Last 24 Hours (Table) 02/28/23 20:10 Legionella Culture - Preliminary Sputum
[2023-03-07] MEDS ORDERED: METOPROLOL SUCCINATE (ER) 25 MG TAB.ER.24H PO SCH (09:45)
--- NOTE | 2023-03-07 10:19 | P.PN ---
Subjective Progress Note Date: 03/07/23 I am seeing this patient in new consultation today 03/01/2023 in the intensive care unit, after the patient had a witnessed PEA cardiac arrest while on the Observation unit. Patient is a 62-year-old white male with past medical history significant for diabetes mellitus, diabetic foot ulcers, hypertension, hyperlipidemia, iron deficiency anemia, chronic kidney disease. Patient is currently sedated and intubated on the mechanical ventilator. He was admitted yesterday morning, after being found on the floor by his father. Apparently, the patient denied hitting his head or losing consciousness. Patient does have diabetes mellitus, and his blood sugars had been running high at home. Chest x- ray on admission showed a left lower lobe infiltrate consistent with community acquired pneumonia. Patient did have a fever with a T-max of 100.7F. Apparently, after being admitted to the observation unt, the patient was noted to have low blood pressure. The patient was given 1 L normal saline bolus and 5 amps sodium bicarb. Soon after, the patient had a cardiac arrest. Presenting rhythm was PEA. Patient had a limited downtime of less than 5 minutes. He received 1 mg of epinephrine. Rapid sequence intubation was performed. The patient was then transferred to the intensive care unit. Dr. Lacy did come in and place a left subclavian central line catheter and a right wrist arterial line. Patient was also noted to be in acute renal failure. He did have a right femoral hemodialysis catheter placed earlier, and is currently undergoing emergent hemodialysis. Patient is currently in the intensive care unit, intubated to the mechanical ventilator. He is sedated on propofol which is currently infusing at 40 mcg/kg/m. He is synchronous with the mechanical ventilator. Postintubation ABG shows a pO2 greater than 400, pCO2 27, pH of 7.43, this was done on ventilator settings of assist control, respiratory rate 22, tidal volume 500, FiO2 100%, and PEEP of 5. Patient's FiO2 was dropped to 50%. Peak pressures 27. Post intubation chest x-ray shows the endotracheal tube 4 cm above the anika. Oral gastric tube could be advanced 5 cm. There is a persistent left lower lobe infiltrate. Most recent CBC from yesterday evening showed a WBC count of 7.8, hemoglobin 7.1, hematocrit 22.7, platelets 120. No obvious acute blood loss was noted. Most recent available BMP shows sodium 140, potassium 4.6, chloride 107, serum bicarb 15, BUN 107, creatinine 7.82, glucose 282. Acetone negative. LFTs not elevated. CPK 1240. Currently, 3 A sodium bicarb in D5W is infusing at 100 ML's per hour. There is also normal saline infusing at 130 ML's per hour. Patient is currently anuric. Troponins elevated at 0.457, 0.388, and 0.422 respectively. ECG shows normal sinus rhythm without any obvious acute ischemic changes. Urinalysis not concerning for UTI. Lactic acid level was elevated at 4 is down 1.6. Negative for influenza, RSV, COVID- 19. Patient was started on empiric antibiotics in the form of ceftriaxone and azithromycin. Currently afebrile. Patient's condition is currently critical, moderate in the intensive care unit. Progress note dated 03/02/2023. 62-year-old male who was seen in consultation yesterday, status post cardiopulmonary arrest. The patient had a witnessed PEA arrest. He had a very short resuscitation time of about 5 minutes. The patient was transferred to the intensive care unit. I came into the hospital, on Sunday evening, and placed a right radial art line, and a left subclavian triple-lumen catheter. Remains in the intensive care unit, on the ventilator. Currently, the patient is on the volume assist control, rate 22, tidal volume 500, FiO2 50% PEEP of 5. Blood gases show pO2 of 97, pCO2 25, and pH is 7.53. The patient is receiving saline at 100 mL an hour, propofol at 40 mcg/kg/m, norepinephrine at 7.7 mcg/m, and vital high protein at 35 mL an hour, with a goal of 54 mL an hour. White count 12.1, hemoglobin 8.2, hematocrit 25.1, and platelet count 139,000. Sodium is 137, potassium 3.6, chlorides 105, CO2 18, anion gap 14, BUN 73, and creatinine 5.21. Calcium is 7.1. Today, is likely a dialysis day. Culture information is pending or negative. Chest x-ray continues to show a consolidative process, in the left midlung left lower lobe area. Progress note dated 03/03/2023. 62-year-old male who is seen today in room 264. The patient remains on mechanical ventilator, having sustained a cardiopulmonary arrest. Ventilator settings include the volume assist control, rate 22, tidal volume 500, FiO2 50%, and PEEP of 5. Arterial blood gases show pO2 38, pCO2 34, and the pH is 7.45. The patient remains on norepinephrine at 5 mcg/m, propofol at 30 mcg/kg/m, and saline at 100 mL an hour. The patient's also getting vital high protein at 69 mL an hour, which is goal. White count is 11, hemoglobin 8.3, hematocrit 25.3, and platelet count 109,000. Sodium 134, potassium 3.2, chlorides 103, CO2 19, BUN 56, and creatinine 3.35. Microbiologic sampling as as far negative. Chest x-ray shows extensive infiltrate, and left midlung and left lower lobe area. The patient continues on Zosyn and Levaquin. Yesterday, we attempted a daily interruption of sedation, and the patient did not do well. We will attempt that again today. Progress note dated 03/04/2023. 62-year-old male, seen again in room 264. The patient remains on the mechanical ventilator. He is status post brief cardiopulmonary arrest, with cardiop ulmonary resuscitation, and return of spontaneous circulation. The cardiac arrest was brief, lasting maybe 5-7 minutes. Current ventilator settings include the volume assist control, rate 22, tidal volume 500, FiO2 50%, and PEEP of 5. Blood gases show pO2 of 73, pCO2 31, and pH 7.51. The patient continues on propofol at 35 mcg/kg/m, norepinephrine at 4 mcg/m, and saline at KVO. The patient is getting vital high protein at 69 mL an hour, which is goal. His Legionella urinary antigen was positive. His chest x-ray continues to show a left-sided infiltrate. He did have hemodialysis yesterday, and 1 L of fluid was removed. White count 10.4, hemoglobin 8.6, hematocrit 26.8, and platelet count 82,000. Sodium 133, potassium 3.8, chlorides 102, CO2 21, BUN 52, creatinine 2.55. Chest x-ray shows a patchy infiltrate, involving the left midlung and left lower lobe area. The chest x-ray in my opinion is essentially unchanged. On 03/05/2023, I'm seeing the patient in the intensive care unit. The patient is currently intubated on a mechanical ventilator. The patient is post cardiac arrest that occurred on 02/28/2023. The patient presented to us with an acute kidney injury on top of chronic kidney failure. He was profoundly acidotic at the time of admission and the serum bicarb was down to 10. No significant hyperkalemia. He was admitted to the medical/he had a cardiac arrest. His down time was estimated to be more than 5 minutes. He received at least 5 minutes of CPR and there was return of spontaneous circulation. His echocardiogram shows severely and. Impaired LV function with an EF of around 20-25%. Since then, the patient has not had any major cardiac events. His cardiac rhythm is sinus. He is currently undergoing hemodialysis for end-stage renal disease. Note that the patient has sustained an acute kidney injury on top of his chronic kidney failure. His baseline GFR was 18 and the patient has chronic stage IV kidney disease. He has a hemodialysis catheter in his right femoral. He is being dialyzed periodically and protohistorian on the case. Meanwhile, he remains intubated on a mechanical ventilator. His calm and comfortable on propofol which is running at 20 mcg/kg/m. He is receiving daily sedation holidays. He was not felt to be neurologically awake enough to be extubated. His most recent CAT scan of the brain was done on 03/04/2023 and the patient was not found to have an acute abnormalities. The patient had mild to moderate generalized brain atrophy. No edema. No stroke. Neurology is on the case and the patient was given an EGD today and there is also still pending for now. Hemodynamically, the patient is requiring low-dose norepinephrine at 0.04 mcg/kg/m. He is afebrile. His most recent chest x-ray that was done today showed extensive consolidation of the left lower lobe and the lingula. Legionella urine antigen was positive and this is likely a Legionella pneumonia. This was present on earlier chest x-rays that dates back to 02/28/2023. It is likely that the patient presented to us with a pneumonia. Possibility of a aspiration pneumonia at a time of his cardiac arrest cannot be completely ruled out. His sputum is negative. Blood cultures negative. Antibiotic coverage is a combination of Zosyn and Levaquin. He is diabetic on Levemir insulin 20 units and is also taking NovoLog 7 units 3 times a day. Enteral feeding for nutritional support and the patient is currently on vital HP at at the rate of 69 mL an hour. He is afebrile. No other significant events overnight. His current ventilator s ettings include an assist-control mode rate of 24, tidal volume of 500, FiO2 of 50% with a PEEP of 5. The blood gas shows a pH of 7.46 with a pCO2 of 28 and pO2 of 86. On 03/06/2023, the patient is opening his eyes spontaneously. He is tracking. Is not following any commands. He is currently on 15 mcg/kg/m of propofol and when a positive further weaning this propofol. His overall respiratory status is stable. Is currently on assist control mode with a rate of 16, tidal volume of 500, FiO2 of 40% with a PEEP of 5. As mentioned earlier, he has a Legionella left lower lobe pneumonia and he continues to have persistent consolidation of the left lower lobe. Blood gas from today shows a pH of 7.46 with a pCO2 of 33 and pO2 of 67 and this was done on the above-mentioned ventilator settings. Meanwhile, the patient is still requiring low-dose pressors. Currently on norepinephrine running at 0.03 mcg/kg/m. He is undergoing periodic dialysis as the patient sustained an acute kidney injury on top of his chronic kidney failure. His last session of hemodialysis was yesterday and the patient was also infiltrated for a total of 0.5 L. His urine output as such is minimal at this point. Urine is a 78 with a creatinine of 2.8 and a sodium level is 132. Serum bicarbs of 19. White cell cause of 14.4 with a hemoglobin of 9.1 and a platelet count of 110. Neurologically, as stated, the patient had a negative CAT scan of the brain. EEG showed slowing moderate to severe degree of slowing, generalized dysfunction, no evidence of any seizure activity. Neurology is on the case. He remains on Levaquin. Fecal management system in Place and the patient is still stooling, liquid stool and stool for C. diff has been negative. Blood cultures have been negative. He remains on Levemir insulin 20 units along with NovoLog 7 units [id number] plus a sliding scale coverage. IV fluids are currently at KVO. As stated, he has severe impairment of LV function with an ejection fraction of 20-25%. Cardiac rhythm remained sinus. on 03/07/2023, I'm seeing the patient for a follow-up. The patient remains intubated on mechanical ventilator. We will gradually weaning him off the sedation. He was taken off propofol as of 5 AM this morning. He is currently on no sedation. We have noticed ongoing but slow improvement in his level of alertness and I was told that he was intermittently following commands. This is quite encouraging . Furthermore, the patient remains on a mechanical ventilator. Today, his assist control of 16, tidal volume of 450, FiO2 of 40% and a PEEP of 5. Blood gas shows a pH of 7.44 with a pCO2 of 31 and pO2 of 94. His chest x-ray still showing consolidation of the left lower lobe related to his Legionella pneumonia. No significant respiratory secretions. We'll check his weaning parameters after he completes his hemodialysis which is currently in progress and he has another 2 hours to go.. The patient is producing some urine output and his urine output is in order of 10-50 mL an hour. His BUN is 104 and a creatinine 3.6 which is elevated compared to yesterday and the patient is still renal failure. Sodium level is at 133 and a bicarb level is at 17 is currently on IV fluids at [facility]. The white cell cause at 17.5, hemoglobin is at 8.7 and a platelet count is 132. Is on no pressors. He is hemodynamically stable. He is afebrile. He is on enteral feeding which was placed on hold in anticipation for possible extubation today. Despite his improved level of alertness, he remains profoundly weak in his upper extremities. He is doing minimal movement compared to yesterday using his arms. He doesn't reach. He tracks. He occasionally follows simple commands. His blood sugars under adequate control on Levemir insulin 20 units and is also taking 7 units of NovoLog with meals. He remains on Levaquin. No other significant events overnight. Objective - Vital Signs Vital signs: Vital Signs Temp 98.2 F 03/07/23 08:00 Pulse 92 03/07/23 10:00 Resp 24 03/07/23 10:00 BP 131/69 03/05/23 13:26 Pulse Ox 94 L 03/07/23 10:00 FiO2 40 03/07/23 08:00 Intake & Output 03/06/23 03/07/23 03/07/23 18:59 06:59 18:59 Intake Total 5680.666 0687.923 184 Output Total 155 295 40 Balance 922.921 848.923 144 Weight 82.9 kg 85.3 kg Intake: IV 230 350 60 KVO 230 250 60 Magnesium Sulfate-D5w Pmx 100 1 gm In Dextrose/Water 1 100ml.bag @ 100 mls/hr IVPB ONCE ONE Rx#: [id number] Intake, IV Titration 83.921 92.923 Amount Norepinephrine 4 mg In 35.319 7.506 Sodium Chloride 0.9% 250 ml @ 0.03 MCG/KG/MIN 8.14 mls/hr IV .Q24H [facility] Rx#: [id number] propofoL 1,000 mg In 48.602 85.417 Empty Bag 1 bag @ 15 MCG/ KG/MIN 6.409 mls/hr IV . [id number] [facility] Rx#:[id number] Tube Feeding 674 611 94 Other 90 90 30 Output: Urine 155 195 40 Stool 100 Other: Voiding Method Indwelling Catheter Indwelling Catheter Indwelling Catheter ABP, PAP, CO, CI - Last Documented Arterial Blood Pressure 113/45 - Exam No acute distress, awake and he is off sadation, with an orally placed endotracheal tube and NG tube. The patient is currently off propofol. Calm and comfortable. Head exam was generally normal. There was no scleral icterus or corneal arcus. Mucous membranes were moist. HEENT examination is grossly unremarkable. Neck supple. Full range of motion. No adenopathy thyromegaly or neck vein distention. Cardiovascular examination reveals regular rhythm rate. S1-S2 normal. No S3 or S4. No discernible murmur noted. Heart sounds are distant. Lungs reveal bilateral rhonchi. No wheezes or crackles. Breath sounds are equal. Abdomen soft bowel sounds are heard. No masses or tenderness. The patient has a dialysis catheter, temperature dialysis catheter in his right femoral vein. Extremities are intact. No cyanosis clubbing or edema. Skin is without rash or lesion. Neurologic examination is somewhat limited as the patient is off propofol , no agitation. He opens his eyes spontaneously. He looks around. He does occasionally follow any commands. No facial asymmetry. Pupils are equal and reactive to light. Occasional weak cough. The patient grimaces to painful stimulation. - Labs CBC & Chem 7: 03/07/23 04:40 03/07/23 04:40 Labs: Abnormal Lab Results - Last 24 Hours (Table) 03/06/23 03/06/23 03/06/23 Range/Units 04:10 04:10 11:58 WBC (3.8-10.6) k/uL RBC (4.30-5.90) m/uL Hgb (13.0-17.5) gm/dL Hct (39.0-53.0) % Plt Count (150-450) k/uL Neutrophils # (Manual) 12.20 H (1.3-7.7) k/uL Lymphocytes # (Manual) 0.86 L (1.0-4.8) k/uL Metamyelocytes # (Man) 0.29 H (0) k/uL Myelocytes # (Manual) 0.14 H (0) k/uL ABG pCO2 (35-45) mmHg ABG O2 Saturation (94-97) % Sodium 132 L (137-145) mmol/L Carbon Dioxide 19 L (22-30) mmol/L BUN 78 H (9-20) mg/dL Creatinine 2.82 H (0.66-1.25) mg/dL Glucose 175 H (74-99) mg/dL POC Glucose (mg/dL) 209 H (70-110) mg/dL Calcium 7.7 L (8.4-10.2) mg/dL 03/06/23 03/07/23 03/07/23 Range/Units 16:54 00:08 04:40 WBC 17.5 H (3.8-10.6) k/uL RBC 3.10 L (4.30-5.90) m/uL Hgb 8.7 L (13.0-17.5) gm/dL Hct 26.7 L (39.0-53.0) % Plt Count 132 L (150-450) k/uL Neutrophils # (Manual) 15.40 H (1.3-7.7) k/uL Lymphocytes # (Manual) 0.70 L (1.0-4.8) k/uL Metamyelocytes # (Man) 0.53 H (0) k/uL Myelocytes # (Manual) 0.18 H (0) k/uL ABG pCO2 (35-45) mmHg ABG O2 Saturation (94-97) % Sodium (137-145) mmol/L Carbon Dioxide (22-30) mmol/L BUN (9-20) mg/dL Creatinine (0.66-1.25) mg/dL Glucose (74-99) mg/dL POC Glucose (mg/dL) 172 H 149 H (70-110) mg/dL Calcium (8.4-10.2) mg/dL 03/07/23 03/07/23 03/07/23 Range/Units 04:40 05:30 05:55 WBC (3.8-10.6) k/uL RBC (4.30-5.90) m/uL Hgb (13.0-17.5) gm/dL Hct (39.0-53.0) % Plt Count (150-450) k/uL Neutrophils # (Manual) (1.3-7.7) k/uL Lymphocytes # (Manual) (1.0-4.8) k/uL Metamyelocytes # (Man) (0) k/uL Myelocytes # (Manual) (0) k/uL ABG pCO2 31 L (35-45) mmHg ABG O2 Saturation 97.9 H (94-97) % Sodium 133 L (137-145) mmol/L Carbon Dioxide 17 L (22-30) mmol/L BUN 104 H* (9-20) mg/dL Creatinine 3.68 H (0.66-1.25) mg/dL Glucose 143 H (74-99) mg/dL POC Glucose (mg/dL) 172 H (70-110) mg/dL Calcium 8.1 L (8.4-10.2) mg/dL Microbiology - Last 24 Hours (Table) 02/28/23 20:10 Legionella Culture - Preliminary Sputum Assessment and Plan Plan: Witnessed PEA cardiac arrest with a limited down time of less than 5 minutes. The cardiac arrest occurred on 02/28/2023. Patient remains intubated on mechanical ventilator. CAT scan of the brain that was done on 03/04/2023 showed no acute abnormalities. Patient is receiving daily sedation holidays. 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 The patient is currently on minimal doses of propofol. His level of alertness is improved since yesterday. He opens his eyes spontaneously, he tracks and he grimaces to deep painful stimulation. He is not following any commands. EEG is consistent with generalized slowing could be drug induced versus anoxic encephalopathy. There is no evidence of any ongoing seizure activity. Neurology is on the case.the patient is currently more are awake compared to yesterday and the patient is off propofol. Acute hypoxemic respiratory failure, requiring intubation and mechanical ventilation. Left lower lobe community-acquired pneumonia and sepsis, secondary to Legionella pneumophila. Chest x-ray remains unchanged Severe cardiomyopathy with an ejection fraction of 20-25% Hypotension, probably due to a combination of septic and cardiogenic as the patient has impaired LV function. The patient is currently on low-dose norepinephrine Metabolic anion gap acidosis, secondary to lactic acidosis and sepsis. Chronic stage IV kidney disease Acute on chronic kidney disease, currently receiving hemodialysis. Last hemodialysis session was done yesterday Acute rhabdomyolysis, with mildly elevated CPK. Elevated troponins, likely related to supply/demand mismatch. Anemia of chronic disease, hemoglobin lower than baseline. Diabetes mellitus, insulin-dependent. Hyperlipidemia Diarrhea, patient has a fecal management system in Place. Stool for C. diff has been negative .superficial venous thrombosis of the cephalic veins based on ultrasound and the patient does have some edema in the left upper extremity. Plan Continue ventilator support. No changes. Complete hemodialysis per nephrology and goal is a total of 1.5-2.0 L of ultrafiltration Continue Levaquin Check stool for C. diff colitis was negative off pressors off sadation Continue Levemir insulin Continue rest of the supportive care Left upper extremity superficial vein thrombosis the patient will complete his hemodialysis. Following that, the patient will be given a spontaneous breathing trial as long as his weaning parameters are the patient will need a permacath at the later stage Keep the tube feedings on hold in anticipation for extubation today Condition remains critical Condition is critical. The family will be updated on his condition. We'll continue to follow make further recommendations based on his progress. His evaluation was done in more than 30 minutes. Time with Patient: Greater than 30
--- NOTE | 2023-03-07 11:05 | P.PN ---
Subjective Patient is seen in follow-up for acute kidney injury on chronic kidney disease. Started on hemodialysis 03/01/2023. Urine output and a 20 mL an hour. Intubated. On Levophed. Receiving tube feeds. Vital signs are stable. On vasopressor support. General: Resting in bed. HEENT: Intubated. LUNGS: Scattered rhonchi. HEART: Rate and Rhythm are regular. ABDOMEN: No distention. EXTREMITITES: No edema. Objective - Vital Signs Vital signs: Vital Signs Temp 98.2 F 03/07/23 08:00 Pulse 92 03/07/23 10:00 Resp 24 03/07/23 10:00 BP 131/69 03/05/23 13:26 Pulse Ox 94 L 03/07/23 10:00 FiO2 40 03/07/23 10:56 Intake & Output 03/06/23 03/07/23 03/07/23 18:59 06:59 18:59 Intake Total 6236.884 9578.923 251 Output Total 155 295 50 Balance 922.921 848.923 201 Weight 82.9 kg 85.3 kg Intake: IV 230 350 80 KVO 230 250 80 Magnesium Sulfate-D5w Pmx 100 1 gm In Dextrose/Water 1 100ml.bag @ 100 mls/hr IVPB ONCE ONE Rx#: [id number] Intake, IV Titration 83.921 92.923 Amount Norepinephrine 4 mg In 35.319 7.506 Sodium Chloride 0.9% 250 ml @ 0.03 MCG/KG/MIN 8.14 mls/hr IV .Q24H [facility] Rx#: [id number] propofoL 1,000 mg In 48.602 85.417 Empty Bag 1 bag @ 15 MCG/ KG/MIN 6.409 mls/hr IV . [id number] [facility] Rx#:[id number] Tube Feeding 674 611 141 Other 90 90 30 Output: Urine 155 195 50 Stool 100 Other: Voiding Method Indwelling Catheter Indwelling Catheter Indwelling Catheter ABP, PAP, CO, CI - Last Documented Arterial Blood Pressure 113/45 - Labs CBC & Chem 7: 03/07/23 04:40 03/07/23 04:40 Labs: Abnormal Lab Results - Last 24 Hours (Table) 03/06/23 03/06/23 03/06/23 Range/Units 04:10 04:10 11:58 WBC (3.8-10.6) k/uL RBC (4.30-5.90) m/uL Hgb (13.0-17.5) gm/dL Hct (39.0-53.0) % Plt Count (150-450) k/uL Neutrophils # (Manual) 12.20 H (1.3-7.7) k/uL Lymphocytes # (Manual) 0.86 L (1.0-4.8) k/uL Metamyelocytes # (Man) 0.29 H (0) k/uL Myelocytes # (Manual) 0.14 H (0) k/uL ABG pCO2 (35-45) mmHg ABG O2 Saturation (94-97) % Sodium 132 L (137-145) mmol/L Carbon Dioxide 19 L (22-30) mmol/L BUN 78 H (9-20) mg/dL Creatinine 2.82 H (0.66-1.25) mg/dL Glucose 175 H (74-99) mg/dL POC Glucose (mg/dL) 209 H (70-110) mg/dL Calcium 7.7 L (8.4-10.2) mg/dL 03/06/23 03/07/23 03/07/23 Range/Units 16:54 00:08 04:40 WBC 17.5 H (3.8-10.6) k/uL RBC 3.10 L (4.30-5.90) m/uL Hgb 8.7 L (13.0-17.5) gm/dL Hct 26.7 L (39.0-53.0) % Plt Count 132 L (150-450) k/uL Neutrophils # (Manual) 15.40 H (1.3-7.7) k/uL Lymphocytes # (Manual) 0.70 L (1.0-4.8) k/uL Metamyelocytes # (Man) 0.53 H (0) k/uL Myelocytes # (Manual) 0.18 H (0) k/uL ABG pCO2 (35-45) mmHg ABG O2 Saturation (94-97) % Sodium (137-145) mmol/L Carbon Dioxide (22-30) mmol/L BUN (9-20) mg/dL Creatinine (0.66-1.25) mg/dL Glucose (74-99) mg/dL POC Glucose (mg/dL) 172 H 149 H (70-110) mg/dL Calcium (8.4-10.2) mg/dL 03/07/23 03/07/23 03/07/23 Range/Units 04:40 05:30 05:55 WBC (3.8-10.6) k/uL RBC (4.30-5.90) m/uL Hgb (13.0-17.5) gm/dL Hct (39.0-53.0) % Plt Count (150-450) k/uL Neutrophils # (Manual) (1.3-7.7) k/uL Lymphocytes # (Manual) (1.0-4.8) k/uL Metamyelocytes # (Man) (0) k/uL Myelocytes # (Manual) (0) k/uL ABG pCO2 31 L (35-45) mmHg ABG O2 Saturation 97.9 H (94-97) % Sodium 133 L (137-145) mmol/L Carbon Dioxide 17 L (22-30) mmol/L BUN 104 H* (9-20) mg/dL Creatinine 3.68 H (0.66-1.25) mg/dL Glucose 143 H (74-99) mg/dL POC Glucose (mg/dL) 172 H (70-110) mg/dL Calcium 8.1 L (8.4-10.2) mg/dL Microbiology - Last 24 Hours (Table) 02/28/23 20:10 Legionella Culture - Preliminary Sputum Assessment and Plan Plan: Assessment: 1. Acute kidney injury secondary to ATN secondary to cardiopulmonary arrest. Started on hemodialysis 03/01/2023. Has femoral catheter. Urine output 10-20 mL an hour. 2. Cardiopulmonary arrest. 3. 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 CKD appears to have progressed with creatinine in the range of 3.1-3.4 in April and July 2022. 4. Chronic kidney disease mineral bone disease maintained on Calcitrol. 5. Diabetes mellitus. 6. Shock maintained on Levophed. 7. Anemia of chronic kidney disease. High ferritin noted. On Aranesp. 8. Respiratory alkalosis with metabolic acidosis. Expect improvement in acidosis post dialysis. Plan: Currently seen while undergoing hemodialysis. Next treatment on Sunday. Permacath replaced by vascular surgery. Status post IV Lasix yesterday with slight improvement in urine output. Phosphorus 5.2 dated 03/05/2023. Maintain midodrine. Wean FiO2 and vasopressors. Receiving tube feeds.
--- NOTE | 2023-03-07 11:33 | P.PN ---
Subjective Progress Note Date: 03/07/23 Principal diagnosis: Sepsis and Legionella pneumonia Patient is a 62-year-old male with a past medical history significant for diabetes mellitus hypertension renal insufficiency patient was brought into the ER concerning for weakness and did have some respiratory symptoms patient did have a fever and worsening respiratory status requiring intubation and admission to the ICU the patient urine for digital antigen came back positive evening of 03/01/2023. On today's evaluation that is 03/07/2023 patient continues to be afebrile, the patient remains to be intubated on the vent with an FiO2 is stable at 40%, patient is hemodynamically stable not requiring any pressor support no worsening diarrhea has been reported, currently undergoing dialysis Patient white count is slightly up 17.5 creatinine is 3.68, blood and sputum cultures so far negative, urine for Legionella antigen is positive, stool for C. diff is negative Objective - Vital Signs Vital signs: Vital Signs Temp 98.2 F 03/07/23 08:00 Pulse 93 03/07/23 11:00 Resp 20 03/07/23 11:00 BP 131/69 03/05/23 13:26 Pulse Ox 96 03/07/23 11:00 FiO2 40 03/07/23 11:00 Intake & Output 03/06/23 03/07/23 03/07/23 18:59 06:59 18:59 Intake Total 4313.760 7725.923 318 Output Total 155 295 50 Balance 922.921 848.923 268 Weight 82.9 kg 85.3 kg Intake: IV 230 350 100 KVO 230 250 100 Magnesium Sulfate-D5w Pmx 100 1 gm In Dextrose/Water 1 100ml.bag @ 100 mls/hr IVPB ONCE ONE Rx#: [id number] Intake, IV Titration 83.921 92.923 Amount Norepinephrine 4 mg In 35.319 7.506 Sodium Chloride 0.9% 250 ml @ 0.03 MCG/KG/MIN 8.14 mls/hr IV .Q24H [facility] Rx#: [id number] propofoL 1,000 mg In 48.602 85.417 Empty Bag 1 bag @ 15 MCG/ KG/MIN 6.409 mls/hr IV . [id number] [facility] Rx#:[id number] Tube Feeding 674 611 188 Other 90 90 30 Output: Urine 155 195 50 Stool 100 Other: Voiding Method Indwelling Catheter Indwelling Catheter Indwelling Catheter ABP, PAP, CO, CI - Last Documented Arterial Blood Pressure 127/55 - Exam GENERAL DESCRIPTION: Middle-aged male intubated on the vent RESPIRATORY SYSTEM: Unlabored breathing , decreased breath sound at the base HEART: S1 S2 regular rate and rhythm , ABDOMEN: Soft , no tenderness EXTREMITIES: No edema feet - Labs CBC & Chem 7: 03/07/23 04:40 03/07/23 04:40 Labs: Abnormal Lab Results - Last 24 Hours (Table) 03/06/23 03/06/23 03/06/23 Range/Units 04:10 04:10 11:58 WBC (3.8-10.6) k/uL RBC (4.30-5.90) m/uL Hgb (13.0-17.5) gm/dL Hct (39.0-53.0) % Plt Count (150-450) k/uL Neutrophils # (Manual) 12.20 H (1.3-7.7) k/uL Lymphocytes # (Manual) 0.86 L (1.0-4.8) k/uL Metamyelocytes # (Man) 0.29 H (0) k/uL Myelocytes # (Manual) 0.14 H (0) k/uL ABG pCO2 (35-45) mmHg ABG O2 Saturation (94-97) % Sodium 132 L (137-145) mmol/L Carbon Dioxide 19 L (22-30) mmol/L BUN 78 H (9-20) mg/dL Creatinine 2.82 H (0.66-1.25) mg/dL Glucose 175 H (74-99) mg/dL POC Glucose (mg/dL) 209 H (70-110) mg/dL Calcium 7.7 L (8.4-10.2) mg/dL 03/06/23 03/07/23 03/07/23 Range/Units 16:54 00:08 04:40 WBC 17.5 H (3.8-10.6) k/uL RBC 3.10 L (4.30-5.90) m/uL Hgb 8.7 L (13.0-17.5) gm/dL Hct 26.7 L (39.0-53.0) % Plt Count 132 L (150-450) k/uL Neutrophils # (Manual) 15.40 H (1.3-7.7) k/uL Lymphocytes # (Manual) 0.70 L (1.0-4.8) k/uL Metamyelocytes # (Man) 0.53 H (0) k/uL Myelocytes # (Manual) 0.18 H (0) k/uL ABG pCO2 (35-45) mmHg ABG O2 Saturation (94-97) % Sodium (137-145) mmol/L Carbon Dioxide (22-30) mmol/L BUN (9-20) mg/dL Creatinine (0.66-1.25) mg/dL Glucose (74-99) mg/dL POC Glucose (mg/dL) 172 H 149 H (70-110) mg/dL Calcium (8.4-10.2) mg/dL 03/07/23 03/07/23 03/07/23 Range/Units 04:40 05:30 05:55 WBC (3.8-10.6) k/uL RBC (4.30-5.90) m/uL Hgb (13.0-17.5) gm/dL Hct (39.0-53.0) % Plt Count (150-450) k/uL Neutrophils # (Manual) (1.3-7.7) k/uL Lymphocytes # (Manual) (1.0-4.8) k/uL Metamyelocytes # (Man) (0) k/uL Myelocytes # (Manual) (0) k/uL ABG pCO2 31 L (35-45) mmHg ABG O2 Saturation 97.9 H (94-97) % Sodium 133 L (137-145) mmol/L Carbon Dioxide 17 L (22-30) mmol/L BUN 104 H* (9-20) mg/dL Creatinine 3.68 H (0.66-1.25) mg/dL Glucose 143 H (74-99) mg/dL POC Glucose (mg/dL) 172 H (70-110) mg/dL Calcium 8.1 L (8.4-10.2) mg/dL Microbiology - Last 24 Hours (Table) 02/28/23 20:10 Legionella Culture - Preliminary Sputum Assessment and Plan (1) Legionella pneumonia Current Visit: Yes Status: Acute Code(s): A48.1 - LEGIONNAIRES' DISEASE SNOMED Code(s): 445049762 (2) Sepsis Current Visit: Yes Status: Acute Code(s): A41.9 - SEPSIS, UNSPECIFIED ORGANISM SNOMED Code(s): 46561469 Plan: 1patient presented to hospital with sepsis in this patient with a fever tachycardia hypotension source is likely left lower lobe pneumonia in this patient with weakness lethargy and decreased level of responsiveness and the question of community-acquired versus aspiration pneumonia 2-urine for Legionella antigen is positive, sputum cultures are currently negative for any resistant pathogen 3-Patient fever has resolved and the patient white count has normalized 4- patient to continue with Levaquin 5-did have a worsening of the white count and a question of possible oropharyngeal candidiasis, Diflucan could not be done because of interactions with other medication we will add eraxis and see clinical response Dictation was produced using [employer] dictation software. please excuse any grammatical, word or spelling errors. Time with Patient: Less than 30
[2023-03-07] MEDS ORDERED: ANIDULAFUNGIN 200 MG in SODIUM CHLORIDE 0.9% 200 ML IVPB ONE (12:00)
[2023-03-07 12:24] LABS: Glucose,Whole Blood 157 mg/dL (70-110)
[2023-03-07 17:48] LABS: Glucose,Whole Blood 70 mg/dL (70-110)
[2023-03-07 17:48] LABS: Glucose,Whole Blood 67 mg/dL (70-110)
[2023-03-07] MEDS: LEVOFLOXACIN 500MG-D5W PMX 500 MG in DEXTROSE/WATER 1 100ML.BAG IVPB SCH (17:48)
[2023-03-07] MEDS: DEXTROSE 50% SYRINGE 50 ML IVP PRN (17:48)
--- NOTE | 2023-03-07 18:00 | P.PN ---
Subjective Progress Note Date: 03/07/23 (delayed charting seen at 1015) Patient is a 62-year-old male with chronic kidney disease stage IV/5, hypertension, gout, and diabetes mellitus Type 2 who presented to the ED after being found down by his father. In the ER he underwent an externsive evaluation and was found to have ROSANGELA on CKD with hyperkalemia and significant metabolic acidosis, pneumonia with sepsis, rhabdo, and encephalopathy. He was admitted and was started on Rocephin and Zithromax as well as IV fluids. Nephrology was consulted. Shortly after admission the patient suffered a PEA cardiac arrest with down time was less than 5 minutes. He required vasopressors immediately afterward. He had an emergent central line and hemodialysis catheter placed. He underwent emergent hemodialysis due to his acidosis. He was followed by critical care and nephrology. Infectious disease was consulted Rocephin was discontinued and he was started on Zosyn. An echocardiogram which showed ejection fraction 20-25% with moderate TR and MR and therefore cardiology was consulted. Renal ultrasound showed gallbladder wall thickening but no signs of hydronephrosis or nephrolithiasis. His legionella urine antigen Positive and he was subsequently transitioned to Levaquin. Patient was not doing well with sedation holidays and neurology was subsequently consulted. He underwent a head CT which showed chronic micro vascular ischemic changes and an EEG which showed moderate to severe background slowing. Left upper extremity venous Doppler showed no evidence of DVT but did show cephalic vein superficila thrombosis. Patient seen and examined at bedside. He remains intubated and in the ICU. No acute events overnight. Per nursing he did squeeze her hand. Currently on HD Vital signs reviewed General: nontoxic, no distress, appears at stated age Cardiovascular: S1S2 reg, no murmur, positive posterior tibial pulse bilateral, Lungs: CTA bilateral, no rhonchi, no rales , no accessory muscle use Abdominal: soft, nontender to palpation, no guarding, no appreciable organomegaly Ext: no gross muscle atrophy, diffuse anasarca, no contractures Neuro: CN II-XI grossly intact, unabel to squeeze hand or shows thumbs up, he is able to close eyes and look left and right to commands. Psych: Awake, appears anxious Assessment/Plan: Legionella pneumonia with septic shock now resolved Acute hypoxic respiratory failure Oral pharyngeal candidiasis Encephalopathy, metabolic and possibel anoxic - ID note reviewed: Conitnued levaquin, add exaxis for oral pharyngeal candidiasis - Levaquin 500 mg IV Q48H D#5 , Zosyn 3.375 now discontinued on 03/01-03/05 - Eraxzis 100 mg IV piggyback daily D #1 - B12, TSH, Ammonia wnl. -Pulmonary note reviewed continue with vent support, continue weaning trials, check stool for C. 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 no angiogram due to renal diseas e. - stop metoprolol Xl, unable to crush medication and patient is still requiring midodrine, if BB is needed at this time per cardio then consider non xL forms that can be given via NGT. Diabetes mellitus type 2 with hyperglycemia -A1c 8.2 -Continue with NovoLog sliding scale, 7 units of NovoLog every 6 hours, Levemir 20 units daily in the morning Acute kidney injury secondary to ATN with cardiac arrest on chronic kidney disease stage IIIB, biopsy-proven diabetic kidney d isease a severe interstitial fibrosis Anemia related to chronic kidney disease - nephrology note reviewed: s/p IV lasix with slight improvement in urine output. Conitnue with midodrine - avoid nephrotoxic agents - maintain map >65 - follow Cr and urine output for renal recovery Supoerficial thrombosis of left cephalic vein - warm compresses as needed Rhabdomyolysis, resolved, statin on hold Thrombocytopenia: HIT panel negative. Heparin restarted. PEA arrest Imaging: CXR as teviewed by mo- ET tube in place, Left sided infiltrate with effusion Data Review: Labs reviewed from today include CBC, ABG, and BMP remarkable for WBC 17.5, Hgb 8.7, Plt 132, Na 133, CO2 17, BUN 104, Cr 3.68 DVT prophylaxis: Heparin SC Anticipated discharge date: Pending Clinical Course Anticipated discharge place: Pending Clinical Course This dictation was prepared using [employer] voice recognition software. Though every attempt is made to correct errors during dictation some may still exist. Objective - Vital Signs Vital signs: Vital Signs Temp 99.0 F 03/07/23 16:00 Pulse 87 03/07/23 17:00 Resp 19 03/07/23 17:00 BP 134/58 03/07/23 13:06 Pulse Ox 98 03/07/23 17:00 FiO2 40 03/07/23 16:00 Intake & Output 03/06/23 03/07/23 03/07/23 18:59 06:59 18:59 Intake Total 1192.587 0551.923 1020 Output Total 209 805 8437 Balance 922.921 848.923 -1375 Weight 82.9 kg 85.3 kg Intake: IV 230 350 160 KVO 230 250 160 Magnesium Sulfate-D5w Pmx 100 1 gm In Dextrose/Water 1 100ml.bag @ 100 mls/hr IVPB ONCE ONE Rx#: [id number] Intake, IV Titration 83.921 92.923 Amount Norepinephrine 4 mg In 35.319 7.506 Sodium Chloride 0.9% 250 ml @ 0.03 MCG/KG/MIN 8.14 mls/hr IV .Q24H [facility] Rx#: [id number] propofoL 1,000 mg In 48.602 85.417 Empty Bag 1 bag @ 15 MCG/ KG/MIN 6.409 mls/hr IV . [id number] [facility] Rx#:[id number] Tube Feeding 674 611 470 Hemodialysis 300 Other 90 90 90 Output: Urine 155 195 95 Stool 100 Hemodialysis 2300 Other: Voiding Method Indwelling Catheter Indwelling Catheter Indwelling Catheter ABP, PAP, CO, CI - Last Documented Arterial Blood Pressure 144/53 - Labs CBC & Chem 7: 03/07/23 04:40 03/07/23 04:40 Labs: Abnormal Lab Results - Last 24 Hours (Table) 03/07/23 03/07/23 03/07/23 Range/Units 00:08 04:40 04:40 WBC 17.5 H (3.8-10.6) k/uL RBC 3.10 L (4.30-5.90) m/uL Hgb 8.7 L (13.0-17.5) gm/dL Hct 26.7 L (39.0-53.0) % Plt Count 132 L (150-450) k/uL Neutrophils # (Manual) 15.40 H (1.3-7.7) k/uL Lymphocytes # (Manual) 0.70 L (1.0-4.8) k/uL Metamyelocytes # (Man) 0.53 H (0) k/uL Myelocytes # (Manual) 0.18 H (0) k/uL ABG pCO2 (35-45) mmHg ABG O2 Saturation (94-97) % Sodium 133 L (137-145) mmol/L Carbon Dioxide 17 L (22-30) mmol/L BUN 104 H* (9-20) mg/dL Creatinine 3.68 H (0.66-1.25) mg/dL Glucose 143 H (74-99) mg/dL POC Glucose (mg/dL) 149 H (70-110) mg/dL Calcium 8.1 L (8.4-10.2) mg/dL 03/07/23 03/07/23 03/07/23 Range/Units 05:30 05:55 12:23 WBC (3.8-10.6) k/uL RBC (4.30-5.90) m/uL Hgb (13.0-17.5) gm/dL Hct (39.0-53.0) % Plt Count (150-450) k/uL Neutrophils # (Manual) (1.3-7.7) k/uL Lymphocytes # (Manual) (1.0-4.8) k/uL Metamyelocytes # (Man) (0) k/uL Myelocytes # (Manual) (0) k/uL ABG pCO2 31 L (35-45) mmHg ABG O2 Saturation 97.9 H (94-97) % Sodium (137-145) mmol/L Carbon Dioxide (22-30) mmol/L BUN (9-20) mg/dL Creatinine (0.66-1.25) mg/dL Glucose (74-99) mg/dL POC Glucose (mg/dL) 172 H 157 H (70-110) mg/dL Calcium (8.4-10.2) mg/dL 03/07/23 Range/Units 17:45 WBC (3.8-10.6) k/uL RBC (4.30-5.90) m/uL Hgb (13.0-17.5) gm/dL Hct (39.0-53.0) % Plt Count (150-450) k/uL Neutrophils # (Manual) (1.3-7.7) k/uL Lymphocytes # (Manual) (1.0-4.8) k/uL Metamyelocytes # (Man) (0) k/uL Myelocytes # (Manual) (0) k/uL ABG pCO2 (35-45) mmHg ABG O2 Saturation (94-97) % Sodium (137-145) mmol/L Carbon Dioxide (22-30) mmol/L BUN (9-20) mg/dL Creatinine (0.66-1.25) mg/dL Glucose (74-99) mg/dL POC Glucose (mg/dL) 67 L (70-110) mg/dL Calcium (8.4-10.2) mg/dL Microbiology - Last 24 Hours (Table) 02/28/23 20:10 Legionella Culture - Preliminary Sputum
[2023-03-07 18:09] LABS: Glucose,Whole Blood 108 mg/dL (70-110)
[2023-03-07] MEDS: NOREPINEPHRINE 4 MG in SODIUM CHLORIDE 0.9% 250 ML IV SCH (18:17)
--- NOTE | 2023-03-07 19:20 | P.PN ---
Subjective Progress Note Date: 03/07/23 03/07/2023: Patient was seen for a follow-up. Patient is laying in the bed, intubated, off sedation. Please refer to examination below. 03/06/2023: Patient was seen for a follow-up. Patient is laying in the bed, intubated, on propofol 20 mcg/kg per minute. Patient is off norepinephrine. Please refer to examination below. 03/05/2023: Patient initially seen by Dr. Francisco Lacy. Please refer to his note for details. Patient is a 62-year-old male with pneumonia and cardiac arrest for less than [address] head did not reveal any acute process. Patient was seen for follow-up. Patient currently on norepinephrine in 0.02 mcg/kg per minute with a rate of 5.32 mL per hour. Also on propofol 50 g/kg per minute. Patient is laying in the bed. He did open his eyes to calling his name. Please refer to examination below. No obvious seizure-like activity noted. Objective - Vital Signs Vital signs: Vital Signs Temp 99.0 F 03/07/23 16:00 Pulse 92 03/07/23 19:00 Resp 19 03/07/23 19:00 BP 134/58 03/07/23 13:06 Pulse Ox 98 03/07/23 19:00 FiO2 40 03/07/23 18:00 Intake & Output 03/07/23 03/07/23 03/08/23 06:59 18:59 06:59 Intake Total 3764.463 7906 57 Output Total 295 2405 0 Balance 848.923 -1328 57 Weight 85.3 kg Intake: IV 350 170 10 KVO 250 170 10 Magnesium Sulfate-D5w Pmx 100 1 gm In Dextrose/Water 1 100ml.bag @ 100 mls/hr IVPB ONCE ONE Rx#: [id number] Intake, IV Titration 92.923 Amount Norepinephrine 4 mg In 7.506 Sodium Chloride 0.9% 250 ml @ 0.03 MCG/KG/MIN 8.14 mls/hr IV .Q24H [facility] Rx#: [id number] propofoL 1,000 mg In 85.417 Empty Bag 1 bag @ 15 MCG/ KG/MIN 6.409 mls/hr IV . [id number] [facility] Rx#:[id number] Tube Feeding 611 517 47 Hemodialysis 300 Other 90 90 Output: Urine 195 105 0 Stool 100 Hemodialysis 2300 Other: Voiding Method Indwelling Catheter Indwelling Catheter ABP, PAP, CO, CI - Last Documented Arterial Blood Pressure 146/59 - Exam General: Lying in bed and does not appear in acute distress. HENT: Supple neck. Respiratory: Intubated on ventilator. Neuro: Is awake but is not verbalizing. He is following some inconsistent commands with arm movement, trying to make slight equipment operat0r on either side. His head is turned to the right side. Pupils are round, equal and reactive to light. Extraocular muscles appears intact. No facial weakness. Patient has much stronger facial grimacing equally with nailbed pressure on either side. However he did not move his arms. Patient more alert and awake, making eye contact, and tracking. Has intact gag/cough reflex. Motor: Limited. Not withdrawaling to painful stimuli. No spontaneous movement. He had much stronger facial grimacing with painful stimuli. Patient making slight equipment operat0r with the hands. Also slightly spontaneously moving. Reflexes: 1+ throughout. No seizure like activity noted. Both feet are bandaged. - Labs CBC & Chem 7: 03/07/23 04:40 03/07/23 04:40 Labs: Abnormal Lab Results - Last 24 Hours (Table) 03/07/23 03/07/23 03/07/23 Range/Units 00:08 04:40 04:40 WBC 17.5 H (3.8-10.6) k/uL RBC 3.10 L (4.30-5.90) m/uL Hgb 8.7 L (13.0-17.5) gm/dL Hct 26.7 L (39.0-53.0) % Plt Count 132 L (150-450) k/uL Neutrophils # (Manual) 15.40 H (1.3-7.7) k/uL Lymphocytes # (Manual) 0.70 L (1.0-4.8) k/uL Metamyelocytes # (Man) 0.53 H (0) k/uL Myelocytes # (Manual) 0.18 H (0) k/uL ABG pCO2 (35-45) mmHg ABG O2 Saturation (94-97) % Sodium 133 L (137-145) mmol/L Carbon Dioxide 17 L (22-30) mmol/L BUN 104 H* (9-20) mg/dL Creatinine 3.68 H (0.66-1.25) mg/dL Glucose 143 H (74-99) mg/dL POC Glucose (mg/dL) 149 H (70-110) mg/dL Calcium 8.1 L (8.4-10.2) mg/dL 03/07/23 03/07/23 03/07/23 Range/Units 05:30 05:55 12:23 WBC (3.8-10.6) k/uL RBC (4.30-5.90) m/uL Hgb (13.0-17.5) gm/dL Hct (39.0-53.0) % Plt Count (150-450) k/uL Neutrophils # (Manual) (1.3-7.7) k/uL Lymphocytes # (Manual) (1.0-4.8) k/uL Metamyelocytes # (Man) (0) k/uL Myelocytes # (Manual) (0) k/uL ABG pCO2 31 L (35-45) mmHg ABG O2 Saturation 97.9 H (94-97) % Sodium (137-145) mmol/L Carbon Dioxide (22-30) mmol/L BUN (9-20) mg/dL Creatinine (0.66-1.25) mg/dL Glucose (74-99) mg/dL POC Glucose (mg/dL) 172 H 157 H (70-110) mg/dL Calcium (8.4-10.2) mg/dL 03/07/23 Range/Units 17:45 WBC (3.8-10.6) k/uL RBC (4.30-5.90) m/uL Hgb (13.0-17.5) gm/dL Hct (39.0-53.0) % Plt Count (150-450) k/uL Neutrophils # (Manual) (1.3-7.7) k/uL Lymphocytes # (Manual) (1.0-4.8) k/uL Metamyelocytes # (Man) (0) k/uL Myelocytes # (Manual) (0) k/uL ABG pCO2 (35-45) mmHg ABG O2 Saturation (94-97) % Sodium (137-145) mmol/L Carbon Dioxide (22-30) mmol/L BUN (9-20) mg/dL Creatinine (0.66-1.25) mg/dL Glucose (74-99) mg/dL POC Glucose (mg/dL) 67 L (70-110) mg/dL Calcium (8.4-10.2) mg/dL Assessment and Plan Assessment: This is a 63-year-old gentleman who presented to the emergency department on 02/28/2022 since was found on the floor by his father and he had generalized weakness. Patient has been having recent cough and has been taken DayQuil and NyQuil. It seems while he was in observation the patient had witnessed PEA ca rdiac arrest possibly about less than 5 minutes. He has Legionella pneumonia and continues to be severely encephalopathic. Altered mental status due to septic encephalopathy from pneumonia and metabolic encephalopathy in which had acute on chronic renal failure. Patient is off Propofol. Cannot rule out anoxic encephalopathy/brain injury from cardiopulmonary arrest. Witness cardiopulmonary arrest lasting less then 5 minutes. Per ICU nurse, unsure exact time frame. Community acquire pneumonia/sepsis due to Legionalla Pneumonia Acute on chronic renal faliure and getting dialysis during this admission--trending down Acute hypoxemic respiratory failure requiring intubation DM Acute rhabdomyolysis--likely since was found down, now normal. Plan: * CT head revealed no acute intracranial abnormality. Mild to moderate generalized brain atrophy and chronic microvascular ischemic changes. I personally reviewed CT head, agree with the findings. There is slight prominence of the ventricles, slightly more than amount of cortical atrophy. Clinical correlation recommended for possible NPH. There is evidence of old lacunar stroke left thalamus. * EEG was performed, which was abnormal due to background slowing of moderate to severe degree. This is suggestive of generalized cerebral dysfunction, as can be seen with toxic metabolic encephalopathy or related to diffuse structural brain abnormality or medication effect. Clinical correlation is recommended. No epileptiform activity was seen. * TSH 1.48, ammonia level < 9, Vitamin B12 1213, folate 5.50 and repeat CK level 63. All tests normal, but folate borderline, we'll start folate 1 mg daily. * I.D. is on board. * Neurologically, patient more alert and awake, likely due to being off propofol. He is following some minimal commands with making equipment operat0r with his hands. He slightly spontaneously moving his arms minimally. He is more making eye contact and slightly tracking. * Will defer the rest of medical management to the primary team and other specialist. * Neurology will follow clinically. Discussed with patient's nurse.
[2023-03-07 20:41] LABS: Glucose,Whole Blood 97 mg/dL (70-110)
[2023-03-08] MEDS: INSULIN ASPART (NovoLOG) 100 UNIT/ML VIAL SQ SCH ×8 (00:30→18:48)
[2023-03-08 00:37] LABS: Glucose,Whole Blood 114 mg/dL (70-110)
[2023-03-08 04:05] LABS: Basophils # (A) 0.1 k/uL (0-0.2); Basophils % (A) 1 %; Eosinophils # (A) 0.3 k/uL (0-0.7); Eosinophils % (A) 2 %; HCT 26.6 % (39.0-53.0); HGB 8.6 gm/dL (13.0-17.5); Lymphocytes # (A) 0.7 k/uL (1.0-4.8); Lymphocytes % (A) 4 %; MCH 27.6 pg (25.0-35.0); MCHC 32.2 g/dL (31.0-37.0); MCV 85.9 fL (80.0-100.0); Mean Platelet Volume 10.1; Monocytes # (A) 0.4 k/uL (0-1.0); Monocytes % (A) 3 %; Neutrophils # (A) 14.3 k/uL (1.3-7.7); Neutrophils % (A) 90 %; Platelet Count 147 k/uL (150-450); RDW 15.4 % (11.5-15.5)
[2023-03-08 04:47] LABS: ALT 26 U/L (4-49); AST 35 U/L (17-59); African American GFR (CKD) 23 (>60 ml/min/1.73 sqM); Albumin 2.2 g/dL (3.5-5.0); Alkaline Phosphatase 231 U/L (38-126); Anion Gap 11 mmol/L; Blood Urea Nitrogen 78 mg/dL (9-20); C Reactive Protein 7.5 mg/dL (<1.0); Calcium 7.8 mg/dL (8.4-10.2); Carbon Dioxide 21 mmol/L (22-30); Chloride 100 mmol/L (98-107); Glucose 134 mg/dL (74-99); Non-African American GFR(CKD) 20 (>60 ml/min/1.73 sqM); Potassium 4.4 mmol/L (3.5-5.1); Sodium 132 mmol/L (137-145); Total Bilirubin 0.7 mg/dL (0.2-1.3)
[2023-03-08 05:48] LABS: ABG Base Excess -0.3 mmol/L; ABG HCO3 24 mmol/L (21-25); ABG Oxygen Saturation 98.1 % (94-97); ABG PCO2 35 mmHg (35-45); ABG PH 7.44 (7.35-7.45); ABG PO2 103 mmHg (83-108); ABG TCO2 25 mmol/L (19-24); Allen Test Performed? Yes
[2023-03-08 05:57] LABS: Glucose,Whole Blood 164 mg/dL (70-110)
[2023-03-08] MEDS: MIDODRINE 5 MG TAB PO SCH ×3 (06:35→17:16)
[2023-03-08] MEDS: INSULIN DETEMIR (LEVEMIR) 100 UNIT/ML SYR SQ SCH (06:53)
[2023-03-08 06:55] LABS: Glucose,Whole Blood 166 mg/dL (70-110)
--- NOTE | 2023-03-08 07:36 | XR ---
EXAMINATION TYPE: XR chest 1V portable DATE OF EXAM: 03/08/2023 COMPARISON: 03/07/2023 INDICATION: Mechanical ventilation difficulty breathing TECHNIQUE: Single frontal view of the chest is obtained. FINDINGS: The heart size is normal. The pulmonary vasculature is normal. Left lower lobe infiltrate is present. This appears improved from comparison. Correlate for atelectas is or pneumonia. Endotracheal tube tip is above the anika. Nasogastric tube transverses the thorax. Left central veno us catheter tip is in the distal superior vena cava region. IMPRESSION: 1. Improving left lower lobe infiltrate. Correlate for pneumonia or atelectasis.
[2023-03-08] MEDS: CHLORHEXIDINE GLUCONATE 15 ML CUP MUCOUS MEM SCH (08:24)
[2023-03-08] MEDS: PANTOPRAZOLE 40 MG/10 ML VIAL IVP SCH (08:25)
[2023-03-08] MEDS: HEPARIN SODIUM,PORCINE 5,000 UNIT/ML 1 ML VIAL SQ SCH ×2 (08:25→21:11)
[2023-03-08] MEDS: allopurinoL 100 MG TAB PO SCH (08:25)
[2023-03-08] MEDS: FOLIC ACID 1 MG TAB PO SCH (08:25)
[2023-03-08] MEDS: ANIDULAFUNGIN 100 MG in SODIUM CHLORIDE 0.9% 100 ML IVPB SCH (09:13)
--- NOTE | 2023-03-08 09:22 | P.PN ---
Subjective Progress Note Date: 03/08/23 The patient is a 62-year-old male who presented to the hospital after mechanical fall. The patient was on the observation unit when he had a PEA arrest with approximate downtime of 5 minutes. Over the last 24 hours he has been weaned off of the propofol and remains off of vasopressors. Low-dose beta blockers were resumed yesterday and he has been tolerating. He is more alert at the time of my exam this morning. His eyes remain open, tracking conversation. He is able to follow simple commands. GENERAL: Ill-appearing, well-nourished male. NECK: Supple without JVD or thyromegaly. LUNGS: Breath sounds diminished to auscultation bilaterally. Respiration equal and unlabored. No wheezes or crackles. HEART: Regular rate and rhythm without murmurs, rubs or gallops. S1 and S2 heard. EXTREMITIES: Normal range of motion, no edema. No clubbing or cyanosis. Palpable peripheral pulses, weak. Ulcers on bilateral great toes. TELEMETRY: Sinus rhythm LABS: WBC 16.0, hemoglobin 8.6, hematocrit 26.6, platelet 147, sodium 132, potassium 4.4, BUN 78, creatinine 3.18, AST 35, ALT 26 IMPRESSION: Status post cardiac arrest, PEA Acute hypoxic respiratory failure Acute renal failure, on dialysis Cardiomyopathy with severe LV dysfunction Cardiogenic shock History of diabetes PLAN: Wean off of midodrine No plans for coronary angiogram at this time due to renal disease Further recommendations to be responding clinical course I am dictating on behalf of Dr Lso Bond's history/physical and assess ment/plan. Objective - Vital Signs Vital signs: Vital Signs Temp 98.7 F 03/08/23 04:00 Pulse 84 03/08/23 07:00 Resp 17 03/08/23 07:00 BP 134/58 03/07/23 13:06 Pulse Ox 98 03/08/23 07:00 FiO2 40 03/08/23 07:43 Intake & Output 03/07/23 03/08/23 03/08/23 18:59 06:59 18:59 Intake Total 1077 831 Output Total 2405 1195 Balance -1328 -364 Weight 83.7 kg Intake: IV 170 130 KVO 170 130 Tube Feeding 517 611 Hemodialysis 300 Other 90 90 Output: Urine 105 495 Stool 700 Hemodialysis 2300 Other: Voiding Method Indwelling Catheter Indwelling Catheter ABP, PAP, CO, CI - Last Documented Arterial Blood Pressure 129/51 - Labs CBC & Chem 7: 03/08/23 03:46 03/08/23 03:46 Labs: Abnormal Lab Results - Last 24 Hours (Table) 03/07/23 03/07/23 03/08/23 Range/Units 12: 17:45 00:35 WBC (3.8-10.6) k/uL RBC (4.30-5.90) m/uL Hgb (13.0-17.5) gm/dL Hct (39.0-53.0) % Plt Count (150-450) k/uL Neutrophils # (1.3-7.7) k/uL Lymphocytes # (1.0-4.8) k/uL ABG Total CO2 (19-24) mmol/L ABG O2 Saturation (94-97) % Sodium (137-145) mmol/L Carbon Dioxide (22-30) mmol/L BUN (9-20) mg/dL Creatinine (0.66-1.25) mg/dL Glucose (74-99) mg/dL POC Glucose (mg/dL) 157 H 67 L 114 H (70-110) mg/dL Calcium (8.4-10.2) mg/dL Alkaline Phosphatase (38-126) U/L C-Reactive Protein (<1.0) mg/dL Total Protein (6.3-8.2) g/dL Albumin (3.5-5.0) g/dL 03/08/23 03/08/23 03/08/23 Range/Units 03:46 03:46 05:44 WBC 16.0 H (3.8-10.6) k/uL RBC 3.10 L (4.30-5.90) m/uL Hgb 8.6 L (13.0-17.5) gm/dL Hct 26.6 L (39.0-53.0) % Plt Count 147 L (150-450) k/uL Neutrophils # 14.3 H (1.3-7.7) k/uL Lymphocytes # 0.7 L (1.0-4.8) k/uL ABG Total CO2 25 H (19-24) mmol/L ABG O2 Saturation 98.1 H (94-97) % Sodium 132 L (137-145) mmol/L Carbon Dioxide 21 L (22-30) mmol/L BUN 78 H (9-20) mg/dL Creatinine 3.18 H (0.66-1.25) mg/dL Glucose 134 H (74-99) mg/dL POC Glucose (mg/dL) (70-110) mg/dL Calcium 7.8 L (8.4-10.2) mg/dL Alkaline Phosphatase 231 H (38-126) U/L C-Reactive Protein 7.5 H (<1.0) mg/dL Total Protein 5.0 L (6.3-8.2) g/dL Albumin 2.2 L (3.5-5.0) g/dL 03/08/23 03/08/23 Range/Units 05:55 06:52 WBC (3.8-10.6) k/uL RBC (4.30-5.90) m/uL Hgb (13.0-17.5) gm/dL Hct (39.0-53.0) % Plt Count (150-450) k/uL Neutrophils # (1.3-7.7) k/uL Lymphocytes # (1.0-4.8) k/uL ABG Total CO2 (19-24) mmol/L ABG O2 Saturation (94-97) % Sodium (137-145) mmol/L Carbon Dioxide (22-30) mmol/L BUN (9-20) mg/dL Creatinine (0.66-1.25) mg/dL Glucose (74-99) mg/dL POC Glucose (mg/dL) 164 H 166 H (70-110) mg/dL Calcium (8.4-10.2) mg/dL Alkaline Phosphatase (38-126) U/L C-Reactive Protein (<1.0) mg/dL Total Protein (6.3-8.2) g/dL Albumin (3.5-5.0) g/dL
--- NOTE | 2023-03-08 09:41 | P.PN ---
Subjective Progress Note Date: 03/08/23 I am seeing this patient in new consultation today 03/01/2023 in the intensive care unit, after the patient had a witnessed PEA cardiac arrest while on the Observation unit. Patient is a 62-year-old white male with past medical history significant for diabetes mellitus, diabetic foot ulcers, hypertension, hyperlipidemia, iron deficiency anemia, chronic kidney disease. Patient is currently sedated and intubated on the mechanical ventilator. He was admitted yesterday morning, after being found on the floor by his father. Apparently, the patient denied hitting his head or losing consciousness. Patient does have diabetes mellitus, and his blood sugars had been running high at home. Chest x- ray on admission showed a left lower lobe infiltrate consistent with community acquired pneumonia. Patient did have a fever with a T-max of 100.7F. Apparently, after being admitted to the observation unt, the patient was noted to have low blood pressure. The patient was given 1 L normal saline bolus and 5 amps sodium bicarb. Soon after, the patient had a cardiac arrest. Presenting rhythm was PEA. Patient had a limited downtime of less than 5 minutes. He received 1 mg of epinephrine. Rapid sequence intubation was performed. The patient was then transferred to the intensive care unit. Dr. Lacy did come in and place a left subclavian central line catheter and a right wrist arterial line. Patient was also noted to be in acute renal failure. He did have a right femoral hemodialysis catheter placed earlier, and is currently undergoing emergent hemodialysis. Patient is currently in the intensive care unit, intubated to the mechanical ventilator. He is sedated on propofol which is currently infusing at 40 mcg/kg/m. He is synchronous with the mechanical ventilator. Postintubation ABG shows a pO2 greater than 400, pCO2 27, pH of 7.43, this was done on ventilator settings of assist control, respiratory rate 22, tidal volume 500, FiO2 100%, and PEEP of 5. Patient's FiO2 was dropped to 50%. Peak pressures 27. Post intubation chest x-ray shows the endotracheal tube 4 cm above the anika. Oral gastric tube could be advanced 5 cm. There is a persistent left lower lobe infiltrate. Most recent CBC from yesterday evening showed a WBC count of 7.8, hemoglobin 7.1, hematocrit 22.7, platelets 120. No obvious acute blood loss was noted. Most recent available BMP shows sodium 140, potassium 4.6, chloride 107, serum bicarb 15, BUN 107, creatinine 7.82, glucose 282. Acetone negative. LFTs not elevated. CPK 1240. Currently, 3 A sodium bicarb in D5W is infusing at 100 ML's per hour. There is also normal saline infusing at 130 ML's per hour. Patient is currently anuric. Troponins elevated at 0.457, 0.388, and 0.422 respectively. ECG shows normal sinus rhythm without any obvious acute ischemic changes. Urinalysis not concerning for UTI. Lactic acid level was elevated at 4 is down 1.6. Negative for influenza, RSV, COVID- 19. Patient was started on empiric antibiotics in the form of ceftriaxone and azithromycin. Currently afebrile. Patient's condition is currently critical, moderate in the intensive care unit. Progress note dated 03/02/2023. 62-year-old male who was seen in consultation yesterday, status post cardiopulmonary arrest. The patient had a witnessed PEA arrest. He had a very short resuscitation time of about 5 minutes. The patient was transferred to the intensive care unit. I came into the hospital, on Sunday evening, and placed a right radial art line, and a left subclavian triple-lumen catheter. Remains in the intensive care unit, on the ventilator. Currently, the patient is on the volume assist control, rate 22, tidal volume 500, FiO2 50% PEEP of 5. Blood gases show pO2 of 97, pCO2 25, and pH is 7.53. The patient is receiving saline at 100 mL an hour, propofol at 40 mcg/kg/m, norepinephrine at 7.7 mcg/m, and vital high protein at 35 mL an hour, with a goal of 54 mL an hour. White count 12.1, hemoglobin 8.2, hematocrit 25.1, and platelet count 139,000. Sodium is 137, potassium 3.6, chlorides 105, CO2 18, anion gap 14, BUN 73, and creatinine 5.21. Calcium is 7.1. Today, is likely a dialysis day. Culture information is pending or negative. Chest x-ray continues to show a consolidative process, in the left midlung left lower lobe area. Progress note dated 03/03/2023. 62-year-old male who is seen today in room 264. The patient remains on mechanical ventilator, having sustained a cardiopulmonary arrest. Ventilator settings include the volume assist control, rate 22, tidal volume 500, FiO2 50%, and PEEP of 5. Arterial blood gases show pO2 38, pCO2 34, and the pH is 7.45. The patient remains on norepinephrine at 5 mcg/m, propofol at 30 mcg/kg/m, and saline at 100 mL an hour. The patient's also getting vital high protein at 69 mL an hour, which is goal. White count is 11, hemoglobin 8.3, hematocrit 25.3, and platelet count 109,000. Sodium 134, potassium 3.2, chlorides 103, CO2 19, BUN 56, and creatinine 3.35. Microbiologic sampling as as far negative. Chest x-ray shows extensive infiltrate, and left midlung and left lower lobe area. The patient continues on Zosyn and Levaquin. Yesterday, we attempted a daily interruption of sedation, and the patient did not do well. We will attempt that again today. Progress note dated 03/04/2023. 62-year-old male, seen again in room 264. The patient remains on the mechanical ventilator. He is status post brief cardiopulmonary arrest, with cardiop ulmonary resuscitation, and return of spontaneous circulation. The cardiac arrest was brief, lasting maybe 5-7 minutes. Current ventilator settings include the volume assist control, rate 22, tidal volume 500, FiO2 50%, and PEEP of 5. Blood gases show pO2 of 73, pCO2 31, and pH 7.51. The patient continues on propofol at 35 mcg/kg/m, norepinephrine at 4 mcg/m, and saline at KVO. The patient is getting vital high protein at 69 mL an hour, which is goal. His Legionella urinary antigen was positive. His chest x-ray continues to show a left-sided infiltrate. He did have hemodialysis yesterday, and 1 L of fluid was removed. White count 10.4, hemoglobin 8.6, hematocrit 26.8, and platelet count 82,000. Sodium 133, potassium 3.8, chlorides 102, CO2 21, BUN 52, creatinine 2.55. Chest x-ray shows a patchy infiltrate, involving the left midlung and left lower lobe area. The chest x-ray in my opinion is essentially unchanged. On 03/05/2023, I'm seeing the patient in the intensive care unit. The patient is currently intubated on a mechanical ventilator. The patient is post cardiac arrest that occurred on 02/28/2023. The patient presented to us with an acute kidney injury on top of chronic kidney failure. He was profoundly acidotic at the time of admission and the serum bicarb was down to 10. No significant hyperkalemia. He was admitted to the medical/he had a cardiac arrest. His down time was estimated to be more than 5 minutes. He received at least 5 minutes of CPR and there was return of spontaneous circulation. His echocardiogram shows severely and. Impaired LV function with an EF of around 20-25%. Since then, the patient has not had any major cardiac events. His cardiac rhythm is sinus. He is currently undergoing hemodialysis for end-stage renal disease. Note that the patient has sustained an acute kidney injury on top of his chronic kidney failure. His baseline GFR was 18 and the patient has chronic stage IV kidney disease. He has a hemodialysis catheter in his right femoral. He is being dialyzed periodically and inside meter tester on the case. Meanwhile, he remains intubated on a mechanical ventilator. His calm and comfortable on propofol which is running at 20 mcg/kg/m. He is receiving daily sedation holidays. He was not felt to be neurologically awake enough to be extubated. His most recent CAT scan of the brain was done on 03/04/2023 and the patient was not found to have an acute abnormalities. The patient had mild to moderate generalized brain atrophy. No edema. No stroke. Neurology is on the case and the patient was given an EGD today and there is also still pending for now. Hemodynamically, the patient is requiring low-dose norepinephrine at 0.04 mcg/kg/m. He is afebrile. His most recent chest x-ray that was done today showed extensive consolidation of the left lower lobe and the lingula. Legionella urine antigen was positive and this is likely a Legionella pneumonia. This was present on earlier chest x-rays that dates back to 02/28/2023. It is likely that the patient presented to us with a pneumonia. Possibility of a aspiration pneumonia at a time of his cardiac arrest cannot be completely ruled out. His sputum is negative. Blood cultures negative. Antibiotic coverage is a combination of Zosyn and Levaquin. He is diabetic on Levemir insulin 20 units and is also taking NovoLog 7 units 3 times a day. Enteral feeding for nutritional support and the patient is currently on vital HP at at the rate of 69 mL an hour. He is afebrile. No other significant events overnight. His current ventilator s ettings include an assist-control mode rate of 24, tidal volume of 500, FiO2 of 50% with a PEEP of 5. The blood gas shows a pH of 7.46 with a pCO2 of 28 and pO2 of 86. On 03/06/2023, the patient is opening his eyes spontaneously. He is tracking. Is not following any commands. He is currently on 15 mcg/kg/m of propofol and when a positive further weaning this propofol. His overall respiratory status is stable. Is currently on assist control mode with a rate of 16, tidal volume of 500, FiO2 of 40% with a PEEP of 5. As mentioned earlier, he has a Legionella left lower lobe pneumonia and he continues to have persistent consolidation of the left lower lobe. Blood gas from today shows a pH of 7.46 with a pCO2 of 33 and pO2 of 67 and this was done on the above-mentioned ventilator settings. Meanwhile, the patient is still requiring low-dose pressors. Currently on norepinephrine running at 0.03 mcg/kg/m. He is undergoing periodic dialysis as the patient sustained an acute kidney injury on top of his chronic kidney failure. His last session of hemodialysis was yesterday and the patient was also infiltrated for a total of 0.5 L. His urine output as such is minimal at this point. Urine is a 78 with a creatinine of 2.8 and a sodium level is 132. Serum bicarbs of 19. White cell cause of 14.4 with a hemoglobin of 9.1 and a platelet count of 110. Neurologically, as stated, the patient had a negative CAT scan of the brain. EEG showed slowing moderate to severe degree of slowing, generalized dysfunction, no evidence of any seizure activity. Neurology is on the case. He remains on Levaquin. Fecal management system in Place and the patient is still stooling, liquid stool and stool for C. diff has been negative. Blood cultures have been negative. He remains on Levemir insulin 20 units along with NovoLog 7 units [id number] plus a sliding scale coverage. IV fluids are currently at KVO. As stated, he has severe impairment of LV function with an ejection fraction of 20-25%. Cardiac rhythm remained sinus. on 03/07/2023, I'm seeing the patient for a follow-up. The patient remains intubated on mechanical ventilator. We will gradually weaning him off the sedation. He was taken off propofol as of 5 AM this morning. He is currently on no sedation. We have noticed ongoing but slow improvement in his level of alertness and I was told that he was intermittently following commands. This is quite encouraging . Furthermore, the patient remains on a mechanical ventilator. Today, his assist control of 16, tidal volume of 450, FiO2 of 40% and a PEEP of 5. Blood gas shows a pH of 7.44 with a pCO2 of 31 and pO2 of 94. His chest x-ray still showing consolidation of the left lower lobe related to his Legionella pneumonia. No significant respiratory secretions. We'll check his weaning parameters after he completes his hemodialysis which is currently in progress and he has another 2 hours to go.. The patient is producing some urine output and his urine output is in order of 10-50 mL an hour. His BUN is 104 and a creatinine 3.6 which is elevated compared to yesterday and the patient is still renal failure. Sodium level is at 133 and a bicarb level is at 17 is currently on IV fluids at [facility]. The white cell cause at 17.5, hemoglobin is at 8.7 and a platelet count is 132. Is on no pressors. He is hemodynamically stable. He is afebrile. He is on enteral feeding which was placed on hold in anticipation for possible extubation today. Despite his improved level of alertness, he remains profoundly weak in his upper extremities. He is doing minimal movement compared to yesterday using his arms. He doesn't reach. He tracks. He occasionally follows simple commands. His blood sugars under adequate control on Levemir insulin 20 units and is also taking 7 units of NovoLog with meals. He remains on Levaquin. No other significant events overnight. 03/08/2023, I'm seeing the patient for a follow-up. The patient remained off sedation. On today's evaluation, the patient is moving his arms, is able to wiggle his toes, is able to follow commands. He is opening his eyes spontaneously. Is tracking. Is off sedation. He was able to do some CPAP trials yesterday and overnight he was Assist-Control Mode of Mechanical V entilation. Earlier This Morning, He Was a Tidal Volume of 450, FiO2 Was at 40% with a PEEP of 5 and a Respiratory Rate of 16. His Weaning Parameters Are Adequate. Is Unable to Give Me a Good NIF and VC , however his rapid shallow breathing index was less than 50. The patient accordingly was switched to a pressure support of 5 and a PEEP of 5 is able to generate tidal volumes of about 400 and his respiratory rate is currently at 20. No significant orotracheal secretions. He has an acceptable gag upon suctioning. He continues to have a left lower lobe consolidation regarding his left lung Legionella pneumonia. The patient was psychotic 60 with a hemoglobin of 8.6 and a platelet count of 147. Blood gas from today showed a pH of 7.44 with a pCO2 of 35 and pO2 of 103. He underwent hemodialysis yesterday and his creatinine is down to 3.1 with a BUN of 78 and sodium levels of 132 and a potassium level is at 4.4. Doppler of the upper extremity was done and it showed no evidence of any DVT in the left upper extremity. There was superficial venous thromboses in the cephalic vein. The patient is currently receiving enteral feeding for nutritional support. This was placed on hold in anticipation for possible extubation. Meanwhile, the patient has developed some diarrhea. He has a fecal management system in Place. Objective - Vital Signs Vital signs: Vital Signs Temp 98.7 F 03/08/23 04:00 Pulse 84 03/08/23 07:00 Resp 17 03/08/23 07:00 BP 134/58 03/07/23 13:06 Pulse Ox 98 03/08/23 07:00 FiO2 40 03/08/23 07:43 Intake & Output 03/07/23 03/08/23 03/08/23 18:59 06:59 18:59 Intake Total 1077 831 Output Total 2405 1195 Balance -1328 -364 Weight 83.7 kg Intake: IV 170 130 KVO 170 130 Tube Feeding 517 611 Hemodialysis 300 Other 90 90 Output: Urine 105 495 Stool 700 Hemodialysis 2300 Other: Voiding Method Indwelling Catheter Indwelling Catheter ABP, PAP, CO, CI - Last Documented Arterial Blood Pressure 129/51 - Exam No acute distress, awake and he is off sadation, with an orally placed endotracheal tube and NG tube. The patient is currently off propofol. Calm and comfortable. Head exam was generally normal. There was no scleral icterus or corneal arcus. Mucous membranes were moist. HEENT examination is grossly unremarkable. Neck supple. Full range of motion. No adenopathy thyromegaly or neck vein distention. Cardiovascular examination reveals regular rhythm rate. S1-S2 normal. No S3 or S4. No discernible murmur noted. Heart sounds are distant. Lungs reveal bilateral rhonchi. No wheezes or crackles. Breath sounds are equal. Abdomen soft bowel sounds are heard. No masses or tenderness. The patient has a dialysis catheter, temperature dialysis catheter in his right femoral vein. Extremities are intact. No cyanosis clubbing or edema. Skin is without rash or lesion. Neurologic examination is somewhat limited as the patient is off propofol , no agitation. He opens his eyes spontaneously. He looks around. He does follow any commands. No facial asymmetry. Pupils are equal and reactive to light. Occasional weak cough. The patient grimaces to painful stimulation. - Labs CBC & Chem 7: 03/08/23 03:46 03/08/23 03:46 Labs: Abnormal Lab Results - Last 24 Hours (Table) 03/07/23 03/07/23 03/08/23 Range/Units 12:23 17:45 00:35 WBC (3.8-10.6) k/uL RBC (4.30-5.90) m/uL Hgb (13.0-17.5) gm/dL Hct (39.0-53.0) % Plt Count (150-450) k/uL Neutrophils # (1.3-7.7) k/uL Lymphocytes # (1.0-4.8) k/uL ABG Total CO2 (19-24) mmol/L ABG O2 Saturation (94-97) % Sodium (137-145) mmol/L Carbon Dioxide (22-30) mmol/L BUN (9-20) mg/dL Creatinine (0.66-1.25) mg/dL Glucose (74-99) mg/dL POC Glucose (mg/dL) 157 H 67 L 114 H (70-110) mg/dL Calcium (8.4-10.2) mg/dL Alkaline Phosphatase (38-126) U/L C-Reactive Protein (<1.0) mg/dL Total Protein (6.3-8.2) g/dL Albumin (3.5-5.0) g/dL 03/08/23 03/08/23 03/08/23 Range/Units 03:46 03:46 05:44 WBC 16.0 H (3.8-10.6) k/uL RBC 3.10 L (4.30-5.90) m/uL Hgb 8.6 L (13.0-17.5) gm/dL Hct 26.6 L (39.0-53.0) % Plt Count 147 L (150-450) k/uL Neutrophils # 14.3 H (1.3-7.7) k/uL Lymphocytes # 0.7 L (1.0-4.8) k/uL ABG Total CO2 25 H (19-24) mmol/L ABG O2 Saturation 98.1 H (94-97) % Sodium 132 L (137-145) mmol/L Carbon Dioxide 21 L (22-30) mmol/L BUN 78 H (9-20) mg/dL Creatinine 3.18 H (0.66-1.25) mg/dL Glucose 134 H (74-99) mg/dL POC Glucose (mg/dL) (70-110) mg/dL Calcium 7.8 L (8.4-10.2) mg/dL Alkaline Phosphatase 231 H (38-126) U/L C-Reactive Protein 7.5 H (<1.0) mg/dL Total Protein 5.0 L (6.3-8.2) g/dL Albumin 2.2 L (3.5-5.0) g/dL 03/08/23 03/08/23 Range/Units 05:55 06:52 WBC (3.8-10.6) k/uL RBC (4.30-5.90) m/uL Hgb (13.0-17.5) gm/dL Hct (39.0-53.0) % Plt Count (150-450) k/uL Neutrophils # (1.3-7.7) k/uL Lymphocytes # (1.0-4.8) k/uL ABG Total CO2 (19-24) mmol/L ABG O2 Saturation (94-97) % Sodium (137-145) mmol/L Carbon Dioxide (22-30) mmol/L BUN (9-20) mg/dL Creatinine (0.66-1.25) mg/dL Glucose (74-99) mg/dL POC Glucose (mg/dL) 164 H 166 H (70-110) mg/dL Calcium (8.4-10.2) mg/dL Alkaline Phosphatase (38-126) U/L C-Reactive Protein (<1.0) mg/dL Total Protein (6.3-8.2) g/dL Albumin (3.5-5.0) g/dL Assessment and Plan Plan: Witnessed PEA cardiac arrest with a limited down time of less than 5 minutes. The cardiac arrest occurred on 02/28/2023. Patient remains intubated on mechanical ventilator. CAT scan of the brain that was done on 03/04/2023 showed no acute abnormalities. Patient is receiving daily sedation holidays. 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 The patient is currently on minimal doses of propofol. His level of alertness is improved since yesterday. He opens his eyes spontaneously, he tracks and he grimaces to deep painful stimulation. He is not following any commands. EEG is consistent with generalized slowing could be drug induced versus anoxic encephalopathy. There is no evidence of any ongoing seizure activity. Neurology is on the case.the patient is currently more are awake compared to yesterday and the patient is off propofol. The patient is off propofol for the past 24 hours and more and he showing adequate neurological recovery. His profoundly weak it is awake with adequate cough and mechanism. He is also tolerating CPAP trials. Acute hypoxemic respiratory failure, requiring intubation and mechanical ventilation. The patient continues to have a left lower lobe consolidation related to Legionella pneumonia. He remains on Levaquin. Weaning parameters are adequate. Left lower lobe community-acquired pneumonia and sepsis, secondary to Legionella pneumophila. Chest x-ray remains unchanged Severe cardiomyopathy with an ejection fraction of 20-25% Hypotension, probably due to a combination of septic and cardiogenic as the patient has impaired LV function. The patient is currently off norepinephrine Metabolic anion gap acidosis, secondary to lactic acidosis and sepsis. Chronic stage IV kidney disease Acute on chronic kidney disease, currently receiving hemodialysis. Last hemodialysis session was done yesterday Acute rhabdomyolysis, with mildly elevated CPK. Elevated troponins, likely related to supply/demand mismatch. Anemia of chronic disease, hemoglobin lower than baseline. Diabetes mellitus, insulin-dependent. Hyperlipidemia Diarrhea, patient has a fecal management system in Place. Stool for C. diff has been negative .superficial venous thrombosis of the cephalic veins based on ultrasound and the patient does have some edema in the left upper extremity. Diarrhea, improving/thickening and the patient had a negative C. diff. Plan Continue ventilator support. Complete hemodialysis per nephrology and goal is a total of 1.5-2.0 L of ultrafiltration Continue Levaquin Check stool for C. diff colitis was negative off pressors off sadation Put the patient a pressure support of 5 and a PEEP of 5 Obtain a blood gases in 1 hours Removed OG tube and replaced with an NG tube Possible extubation within the next few hours Carries a high risk of intubation because of his generalized debility and neuromuscular weakness. Nevertheless, the patient is awake and following commands and I think it's worthwhile to give him a trial of extubation. Continue Levemir insulin Continue rest of the supportive care Left upper extremity superficial vein thrombosis the patient will need a permacath at the later stage Condition remains critical Condition is critical. The family will be updated on his condition. We'll continue to follow make further recommendations based on his progress. His evaluation was done in more than 30 minutes.
[2023-03-08 10:48] LABS: ABG Base Excess -0.2 mmol/L; ABG HCO3 24 mmol/L (21-25); ABG Oxygen Saturation 97.5 % (94-97); ABG PCO2 35 mmHg (35-45); ABG PH 7.45 (7.35-7.45); ABG PO2 89 mmHg (83-108); ABG TCO2 25 mmol/L (19-24); Allen Test Performed? Yes
[2023-03-08] MEDS ORDERED: FUROSEMIDE 10 MG/ML 10 ML VIAL IV STA (11:14)
--- NOTE | 2023-03-08 11:15 | P.PN ---
Subjective Patient is seen in follow-up for acute kidney injury on chronic kidney disease. Started on hemodialysis 03/01/2023. Urine output improving and now 30-50 mL an hour. Intubated. Off Levophed. Possible extubation today. Vital signs are stable. Off vasopressor support. General: Resting in bed. HEENT: Intubated. Awake. LUNGS: Scattered rhonchi. HEART: Rate and Rhythm are regular. ABDOMEN: No distention. EXTREMITITES: No edema. Objective - Vital Signs Vital signs: Vital Signs Temp 98.2 F 03/08/23 08:00 Pulse 85 03/08/23 10:00 Resp 19 03/08/23 10:00 BP 113/59 03/08/23 10:00 Pulse Ox 98 03/08/23 10:00 FiO2 40 03/08/23 10:50 Intake & Output 03/07/23 03/08/23 03/08/23 18:59 06:59 18:59 Intake Total 1077 831 10 Output Total 2405 1195 125 Balance -1328 -364 -115 Weight 83.7 kg Intake: IV 170 130 10 KVO 170 130 10 Tube Feeding 517 611 Hemodialysis 300 Other 90 90 Output: Urine 105 495 125 Stool 700 Hemodialysis 2300 Other: Voiding Method Indwelling Catheter Indwelling Catheter ABP, PAP, CO, CI - Last Documented Arterial Blood Pressure 72/72 - Labs CBC & Chem 7: 03/08/23 03:46 03/08/23 03:46 Labs: Abnormal Lab Results - Last 24 Hours (Table) 03/07/23 03/07/23 03/08/23 Range/Units 12: 17:45 00:35 WBC (3.8-10.6) k/uL RBC (4.30-5.90) m/uL Hgb (13.0-17.5) gm/dL Hct (39.0-53.0) % Plt Count (150-450) k/uL Neutrophils # (1.3-7.7) k/uL Lymphocytes # (1.0-4.8) k/uL ABG Total CO2 (19-24) mmol/L ABG O2 Saturation (94-97) % Sodium (137-145) mmol/L Carbon Dioxide (22-30) mmol/L BUN (9-20) mg/dL Creatinine (0.66-1.25) mg/dL Glucose (74-99) mg/dL POC Glucose (mg/dL) 157 H 67 L 114 H (70-110) mg/dL Calcium (8.4-10.2) mg/dL Alkaline Phosphatase (38-126) U/L C-Reactive Protein (<1.0) mg/dL Total Protein (6.3-8.2) g/dL Albumin (3.5-5.0) g/dL 03/08/23 03/08/23 03/08/23 Range/Units 03:46 03:46 05:44 WBC 16.0 H (3.8-10.6) k/uL RBC 3.10 L (4.30-5.90) m/uL Hgb 8.6 L (13.0-17.5) gm/dL Hct 26.6 L (39.0-53.0) % Plt Count 147 L (150-450) k/uL Neutrophils # 14.3 H (1.3-7.7) k/uL Lymphocytes # 0.7 L (1.0-4.8) k/uL ABG Total CO2 25 H (19-24) mmol/L ABG O2 Saturation 98.1 H (94-97) % Sodium 132 L (137-145) mmol/L Carbon Dioxide 21 L (22-30) mmol/L BUN 78 H (9-20) mg/dL Creatinine 3.18 H (0.66-1.25) mg/dL Glucose 134 H (74-99) mg/dL POC Glucose (mg/dL) (70-110) mg/dL Calcium 7.8 L (8.4-10.2) mg/dL Alkaline Phosphatase 231 H (38-126) U/L C-Reactive Protein 7.5 H (<1.0) mg/dL Total Protein 5.0 L (6.3-8.2) g/dL Albumin 2.2 L (3.5-5.0) g/dL 03/08/23 03/08/23 03/08/23 Range/Units 05:55 06:52 10:46 WBC (3.8-10.6) k/uL RBC (4.30-5.90) m/uL Hgb (13.0-17.5) gm/dL Hct (39.0-53.0) % Plt Count (150-450) k/uL Neutrophils # (1.3-7.7) k/uL Lymphocytes # (1.0-4.8) k/uL ABG Total CO2 25 H (19-24) mmol/L ABG O2 Saturation 97.5 H (94-97) % Sodium (137-145) mmol/L Carbon Dioxide (22-30) mmol/L BUN (9-20) mg/dL Creatinine (0.66-1.25) mg/dL Glucose (74-99) mg/dL POC Glucose (mg/dL) 164 H 166 H (70-110) mg/dL Calcium (8.4-10.2) mg/dL Alkaline Phosphatase (38-126) U/L C-Reactive Protein (<1.0) mg/dL Total Protein (6.3-8.2) g/dL Albumin (3.5-5.0) g/dL Assessment and Plan Plan: Assessment: 1. Acute kidney injury secondary to ATN secondary to cardiopulmonary arrest. Started on hemodialysis 03/01/2023. Has a permacath. Urine output 30-50 mL an hour. 2. Cardiopulmonary arrest. 3. 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 CKD appears to have progressed with creatinine in the range of 3.1-3.4 in April and July 2022. 4. Chronic kidney disease mineral bone disease maintained on Calcitrol. 5. Diabetes mellitus. 6. Shock s/p Levophed. 7. Anemia of chronic kidney disease. High ferritin noted. On Aranesp. 8. Respiratory alkalosis with metabolic acidosis. Improved. Plan: Hemodialysis tomorrow. Repeat IV Lasix 80 mg once today. Phosphorus 5.2 dated 03/05/2023. Maintain midodrine. Hold for systolic blood pressure greater than 110. Wean FiO2.
[2023-03-08 11:51] LABS: Glucose,Whole Blood 78 mg/dL (70-110)
--- NOTE | 2023-03-08 11:54 | XR ---
EXAMINATION TYPE: XR chest 1V portable DATE OF EXAM: 03/08/2023 COMPARISON: 03/08/2023 INDICATION: NG tube placement TECHNIQUE: Single frontal view of the chest is obtained. FINDINGS: The heart size is normal. The pulmonary vasculature is normal. Infiltrate within the left lower lung field. There is silhouetting the left diaphragm . NG tube transverses the thorax tip in the stomach region. Left central venous catheter has its tip wi thin the proximal right atrium. Endotracheal tube has been removed. IMPRESSION: 1. Left lower lobe infiltrate and/or pleural effusion. 2. Nasogastric tube tip left upper quadrant abdomen.
[2023-03-08] MEDS ORDERED: MIDODRINE 5 MG TAB PO SCH (12:30)
--- NOTE | 2023-03-08 12:30 | P.PN ---
Subjective Progress Note Date: 03/08/23 Principal diagnosis: Sepsis and Legionella pneumonia Patient is a 62-year-old male with a past medical history significant for diabetes mellitus hypertension renal insufficiency patient was brought into the ER concerning for weakness and did have some respiratory symptoms patient did have a fever and worsening respiratory status requiring intubation and admission to the ICU the patient urine for digital antigen came back positive evening of 03/01/2023. On today's evaluation that is 03/08/2023 patient remains to be afebrile, the patient is hemodynamically stable not requiring any pressor support, patient is currently in the process of getting extubated, the patient still have diarrhea and did have a fecal management system overall [facility] Patient white count is slightly down to 16,000 creatinine is 3.18, blood and sputum cultures so far negative, urine for Legionella antigen is positive, stool for C. diff is negative Objective - Vital Signs Vital signs: Vital Signs Temp 98.2 F 03/08/23 08:00 Pulse 85 03/08/23 10:00 Resp 19 03/08/23 10:00 BP 113/59 03/08/23 10:00 Pulse Ox 98 03/08/23 10:00 FiO2 40 03/08/23 09:31 Intake & Output 03/07/23 03/08/23 03/08/23 18:59 06:59 18:59 Intake Total 1077 831 10 Output Total 2405 1195 75 Balance -1328 -364 -65 Weight 83.7 kg Intake: IV 170 130 10 KVO 170 130 10 Tube Feeding 517 611 Hemodialysis 300 Other 90 90 Output: Urine 105 495 75 Stool 700 Hemodialysis 2300 Other: Voiding Method Indwelling Catheter Indwelling Catheter ABP, PAP, CO, CI - Last Documented Arterial Blood Pressure 72/72 - Exam GENERAL DESCRIPTION: Middle-aged male intubated on the vent RESPIRATORY SYSTEM: Unlabored breathing , decreased breath sound at the base HEART: S1 S2 regular rate and rhythm , ABDOMEN: Soft , no tenderness EXTREMITIES: No edema feet - Labs CBC & Chem 7: 03/08/23 03:46 03/08/23 03:46 Labs: Abnormal Lab Results - Last 24 Hours (Table) 03/07/23 03/07/23 03/08/23 Range/Units 12:23 17:45 00:35 WBC (3.8-10.6) k/uL RBC (4.30-5.90) m/uL Hgb (13.0-17.5) gm/dL Hct (39.0-53.0) % Plt Count (150-450) k/uL Neutrophils # (1.3-7.7) k/uL Lymphocytes # (1.0-4.8) k/uL ABG Total CO2 (19-24) mmol/L ABG O2 Saturation (94-97) % Sodium (137-145) mmol/L Carbon Dioxide (22-30) mmol/L BUN (9-20) mg/dL Creatinine (0.66-1.25) mg/dL Glucose (74-99) mg/dL POC Glucose (mg/dL) 157 H 67 L 114 H (70-110) mg/dL Calcium (8.4-10.2) mg/dL Alkaline Phosphatase (38-126) U/L C-Reactive Protein (<1.0) mg/dL Total Protein (6.3-8.2) g/dL Albumin (3.5-5.0) g/dL 03/08/23 03/08/23 03/08/23 Range/Units 03:46 03:46 05:44 WBC 16.0 H (3.8-10.6) k/uL RBC 3.10 L (4.30-5.90) m/uL Hgb 8.6 L (13.0-17.5) gm/dL Hct 26.6 L (39.0-53.0) % Plt Count 147 L (150-450) k/uL Neutrophils # 14.3 H (1.3-7.7) k/uL Lymphocytes # 0.7 L (1.0-4.8) k/uL ABG Total CO2 25 H (19-24) mmol/L ABG O2 Saturation 98.1 H (94-97) % Sodium 132 L (137-145) mmol/L Carbon Dioxide 21 L (22-30) mmol/L BUN 78 H (9-20) mg/dL Creatinine 3.18 H (0.66-1.25) mg/dL Glucose 134 H (74-99) mg/dL POC Glucose (mg/dL) (70-110) mg/dL Calcium 7.8 L (8.4-10.2) mg/dL Alkaline Phosphatase 231 H (38-126) U/L C-Reactive Protein 7.5 H (<1.0) mg/dL Total Protein 5.0 L (6.3-8.2) g/dL Albumin 2.2 L (3.5-5.0) g/dL 03/08/23 03/08/23 Range/Units 05:55 06:52 WBC (3.8-10.6) k/uL RBC (4.30-5.90) m/uL Hgb (13.0-17.5) gm/dL Hct (39.0-53.0) % Plt Count (150-450) k/uL Neutrophils # (1.3-7.7) k/uL Lymphocytes # (1.0-4.8) k/uL ABG Total CO2 (19-24) mmol/L ABG O2 Saturation (94-97) % Sodium (137-145) mmol/L Carbon Dioxide (22-30) mmol/L BUN (9-20) mg/dL Creatinine (0.66-1.25) mg/dL Glucose (74-99) mg/dL POC Glucose (mg/dL) 164 H 166 H (70-110) mg/dL Calcium (8.4-10.2) mg/dL Alkaline Phosphatase (38-126) U/L C-Reactive Protein (<1.0) mg/dL Total Protein (6.3-8.2) g/dL Albumin (3.5-5.0) g/dL Assessment and Plan (1) Legionella pneumonia Current Visit: Yes Status: Acute Code(s): A48.1 - LEGIONNAIRES' DISEASE SNOMED Code(s): 419550858 (2) Sepsis Current Visit: Yes Status: Acute Code(s): A41.9 - SEPSIS, UNSPECIFIED ORGANISM SNOMED Code(s): 66773110 Plan: 1patient presented to hospital with sepsis in this patient with a fever tachycardia hypotension source is likely left lower lobe pneumonia in this patient with weakness lethargy and decreased level of responsiveness and the question of community-acquired versus aspiration pneumonia 2-urine for Legionella antigen is positive, sputum cultures are currently negative for any resistant pathogen , patient to continue with Levaquin 3-patient with leukocytosis question of possible oropharyngeal candidiasis, white count did improved with addition of eraxis which will be continued and monitor clinical course closely Dictation was produced using [employer] ([employer]) dictation software. please excuse any grammatical, word or spelling errors. Time with Patient: Less than 30
[2023-03-08 18:42] LABS: Glucose,Whole Blood 69 mg/dL (70-110)
[2023-03-08] MEDS: DEXTROSE 50% SYRINGE 50 ML IVP PRN (18:48)
[2023-03-08 19:02] LABS: Glucose,Whole Blood 120 mg/dL (70-110)
--- NOTE | 2023-03-08 20:57 | P.PN ---
Subjective Progress Note Date: 03/08/23 Patient is a 62-year-old male with chronic kidney disease stage IV/5, hypertension, gout, and diabetes mellitus Type 2 who presented to the ED after being found down by his father. In the ER he underwent an externsive evaluation and was found to have ROSANGELA on CKD with hyperkalemia and significant metabolic acidosis, pneumonia with sepsis, rhabdo, and encephalopathy. He was admitted and was started on Rocephin and Zithromax as well as IV fluids. Nephrology was consulted. Shortly after admission the patient suffered a PEA cardiac arrest with down time was less than 5 minutes. He required vasopressors immediately afterward. He had an emergent central line and hemodialysis catheter placed. He underwent emergent hemodialysis due to his acidosis. He was followed by critical care and nephrology. Infectious disease was consulted Rocephin was discontinued and he was started on Zosyn. An echocardiogram which showed ejection fraction 20-25% with moderate TR and MR and therefore cardiology was consulted. Renal ultrasound showed gallbladder wall thickening but no signs of hydronephrosis or nephrolithiasis. His legionella urine antigen Positive and he was subsequently transitioned to Levaquin. Patient was not doing well with sedation holidays and neurology was subsequently consulted. He underwent a head CT which showed chronic micro vascular ischemic changes and an EEG which showed moderate to severe background slowing. Left upper extremity venous Doppler showed no evidence of DVT but did show cephalic vein superficial thrombosis. Patient seen and examined at bedside. He is extubated now. He continues I want to go home. He does not respond to any other questioning. He says no other phrases. Vital signs reviewed General: nontoxic, no distress, appears at stated age Cardiovascular: S1S2 reg, no murmur, positive posterior tibial pulse bilateral, Lungs: CTA bilateral, no rhonchi, no rales , no accessory muscle use Abdominal: soft, nontender to palpation, no guarding, no appreciable organomegaly Ext: no gross muscle atrophy, diffuse anasarca, no contractures Neuro: CN II-XI grossly intact, moving all 4 extremities independently. Psych: Awake,speaking Assessment/Plan: Legionella pneumonia with septic shock now resolved Acute hypoxic respiratory failure Oral pharyngeal candidiasis Encephalopathy, metabolic and possible anoxic -Infectious disease note reviewed: Continue with Levaquin - Pulmonary note reviewed: Continue with hemodialysis next day patient - Levaquin 500 mg IV Q48H D#6 , Zosyn 3.375 now discontinued on 03/01-03/05 - Eraxzis 100 mg IV piggyback daily D #2 - B12, TSH, Ammonia wnl. Systolic cardiomyopathy with ejection fraction 20-25% Elevated troponin due to demand ischemia, flat, not consistent with acute coronary syndrome -Cardiology note reviewed: Wean off the midodrine no plans for coronary angiogram at this time - if BP remains stable off midodrine then initiate GDMT Diabetes mellitus type 2 with hyperglycemia -A1c 8.2 -Continue with NovoLog sliding scale, 7 units of NovoLog every 6 hours, Levemir 20 units daily in the morning Acute kidney injury secondary to ATN with cardiac arrest on chronic kidney disease stage IIIB, biopsy-proven diabetic kidney disease a severe interstitial fibrosis Anemia related to chronic kidney disease -Nephrology to review: Hemodialysis tomorrow, repeat Lasix 80 mg IV daily - avoid nephrotoxic agents - maintain map >65 - follow Cr and urine output for renal recovery Supoerficial thrombosis of left cephalic vein - warm compresses as needed Rhabdomyolysis, resolved, statin on hold Thrombocytopenia: HIT panel negative. Heparin restarted. PEA arrest Imaging: None new reviewed Data Review: Labs reviewed today include CBC, ABG, and basic metabolic profile which are remarkable for white blood cell count 16, hemoglobin 8.6, platelets 147, sodium 132, hematocrit 21, BUN 78, creatinine 3.18 on the Propulsid home in significantly elevated at 12.5 however coming down from 86.9 DVT prophylaxis: Heparin SC Anticipated discharge date: Pending Clinical Course Anticipated discharge place: Pending Clinical Course This dictation was prepared using Meograph voice recognition software. Though every attempt is made to correct errors during dictation some may still exist. Active Medications Allopurinol (Allopurinol 100 Mg Tab) 100 mg PO DAILY [facility] Last Admin: 03/08/23 08:25 Dose: 100 mg Calcitriol (Calcitriol 0.25 Mcg Cap) 0.25 mcg PO MOTUWETHFR [facility] Last Admin: 03/08/23 08:25 Dose: 0.25 mcg Darbepoetin Lefty (Darbepoetin Lefty 40 Mcg/0.4 Ml Syringe) 40 mcg SQ Q7D [facility] Last Admin: 03/05/23 12:23 Dose: 40 mcg Dextrose/Water (Dextrose 50% Syringe 50 Ml) 25 ml IVP PER PROTOCOL PRN; Protocol PRN Reason: Hypoglycemia Last Admin: 03/08/23 18:48 Dose: 25 ml Dextrose/Water (Dextrose 50% Syringe 50 Ml) 50 ml IVP PER PROTOCOL PRN; Protocol PRN Reason: Hypoglycemia Folic Acid (Folic Acid 1 Mg Tab) 1 mg PO DAILY [facility] Last Admin: 03/08/23 08:25 Dose: 1 mg Heparin Sodium (Porcine) (Heparin Sodium,Porcine 5,000 Unit/Ml 1 Ml Vial) 5,000 unit SQ Q12HR [facility] Last Admin: 03/08/23 08:25 Dose: 5,000 unit Propofol 1,000 mg/ IV Solution 100 mls @ 6.409 mls/hr IV .[id number] [facility]; Protocol Last Titration: 03/07/23 05:50 Dose: 0 mcg/kg/min, 0 mls/hr Levofloxacin 500 mg/ IV (Solution) 100 mls @ 100 mls/hr IVPB Q48H [facility] Last Admin: 03/07/23 17:48 Dose: 100 mls/hr Anidulafungin 100 mg/ Sodium (Chloride) 130 mls @ 84 mls/hr IVPB DAILY [facility]; Pro tocol Last Admin: 03/08/23 09:13 Dose: 84 mls/hr Insulin Aspart (Insulin Aspart (Novolog) 100 Unit/Ml Vial) 0 unit SQ Q6H [facility]; Protocol Last Admin: 03/08/23 18:48 Dose: Not Given Insulin Aspart (Insulin Aspart (Novolog) 100 Unit/Ml Vial) 7 unit SQ Q6HR [facility] Last Admin: 03/08/23 18:48 Dose: Not Given Insulin Detemir (Insulin Detemir (Levemir) 100 Unit/Ml Syr) 20 unit SQ DAILY@0700 [facility] Last Admin: 03/08/23 06:53 Dose: 20 unit Midodrine (Midodrine 5 Mg Tab) 2.5 mg PO AC-TID [facility] Last Admin: 03/08/23 17:16 Dose: Not Given Miscellaneous Information (Pneumonia Protocol Utilized 1 Each Misc) 1 each PO ONCE PRN PRN Reason: Per Protocol Pantoprazole Sodium (Pantoprazole 40 Mg/10 Ml Vial) 40 mg IVP DAILY [facility] Last Admin: 03/08/23 08:25 Dose: 40 mg Objective - Vital Signs Vital signs: Vital Signs Temp 97.2 F L 03/08/23 16:00 Pulse 90 03/08/23 19:00 Resp 14 03/08/23 19:00 BP 124/76 03/08/23 19:00 Pulse Ox 96 03/08/23 19:00 FiO2 40 03/08/23 10:50 Intake & Output 03/08/23 03/08/23 03/09/23 06:59 18:59 06:59 Intake Total 831 110 10 Output Total 1195 2805 350 Balance -364 -2695 -340 Weight 83.7 kg Intake: IV 130 110 10 KVO 130 110 10 Tube Feeding 611 Other 90 Output: Urine 495 705 150 Stool 700 2100 200 Other: Voiding Method Indwelling Catheter Indwelling Catheter ABP, PAP, CO, CI - Last Documented Arterial Blood Pressure 72/72 - Labs CBC & Chem 7: 03/08/23 03:46 03/08/23 03:46 Labs: Abnormal Lab Results - Last 24 Hours (Table) 03/08/23 03/08/23 03/08/23 Range/Units 00:35 03:46 03:46 WBC 16.0 H (3.8-10.6) k/uL RBC 3.10 L (4.30-5.90) m/uL Hgb 8.6 L (13.0-17.5) gm/dL Hct 26.6 L (39.0-53.0) % Plt Count 147 L (150-450) k/uL Neutrophils # 14.3 H (1.3-7.7) k/uL Lymphocytes # 0.7 L (1.0-4.8) k/uL ABG Total CO2 (19-24) mmol/L ABG O2 Saturation (94-97) % Sodium (137-145) mmol/L Carbon Dioxide (22-30) mmol/L BUN (9-20) mg/dL Creatinine (0.66-1.25) mg/dL Glucose (74-99) mg/dL POC Glucose (mg/dL) 114 H (70-110) mg/dL Calcium (8.4-10.2) mg/dL Alkaline Phosphatase (38-126) U/L C-Reactive Protein (<1.0) mg/dL Total Protein (6.3-8.2) g/dL Albumin (3.5-5.0) g/dL Procalcitonin 12.50 H (0.02-0.09) ng/mL 03/08/23 03/08/23 03/08/23 Range/Units 03:46 05:44 05:55 WBC (3.8-10.6) k/uL RBC (4.30-5.90) m/uL Hgb (13.0-17.5) gm/dL Hct (39.0-53.0) % Plt Count (150-450) k/uL Neutrophils # (1.3-7.7) k/uL Lymphocytes # (1.0-4.8) k/uL ABG Total CO2 25 H (19-24) mmol/L ABG O2 Saturation 98.1 H (94-97) % Sodium 132 L (137-145) mmol/L Carbon Dioxide 21 L (22-30) mmol/L BUN 78 H (9-20) mg/dL Creatinine 3.18 H (0.66-1.25) mg/dL Glucose 134 H (74-99) mg/dL POC Glucose (mg/dL) 164 H (70-110) mg/dL Calcium 7.8 L (8.4-10.2) mg/dL Alkaline Phosphatase 231 H (38-126) U/L C-Reactive Protein 7.5 H (<1.0) mg/dL Total Protein 5.0 L (6.3-8.2) g/dL Albumin 2.2 L (3.5-5.0) g/dL Procalcitonin (0.02-0.09) ng/mL 03/08/23 03/08/23 03/08/23 Range/Units 06:52 10:46 18:41 WBC (3.8-10.6) k/uL RBC (4.30-5.90) m/uL Hgb (13.0-17.5) gm/dL Hct (39.0-53.0) % Plt Count (150-450) k/uL Neutrophils # (1.3-7.7) k/uL Lymphocytes # (1.0-4.8) k/uL ABG Total CO2 25 H (19-24) mmol/L ABG O2 Saturation 97.5 H (94-97) % Sodium (137-145) mmol/L Carbon Dioxide (22-30) mmol/L BUN (9-20) mg/dL Creatinine (0.66-1.25) mg/dL Glucose (74-99) mg/dL POC Glucose (mg/dL) 166 H 69 L (70-110) mg/dL Calcium (8.4-10.2) mg/dL Alkaline Phosphatase (38-126) U/L C-Reactive Protein (<1.0) mg/dL Total Protein (6.3-8.2) g/dL Albumin (3.5-5.0) g/dL Procalcitonin (0.02-0.09) ng/mL 03/08/23 Range/Units 19:00 WBC (3.8-10.6) k/uL RBC (4.30-5.90) m/uL Hgb (13.0-17.5) gm/dL Hct (39.0-53.0) % Plt Count (150-450) k/uL Neutrophils # (1.3-7.7) k/uL Lymphocytes # (1.0-4.8) k/uL ABG Total CO2 (19-24) mmol/L ABG O2 Saturation (94-97) % Sodium (137-145) mmol/L Carbon Dioxide (22-30) mmol/L BUN (9-20) mg/dL Creatinine (0.66-1.25) mg/dL Glucose (74-99) mg/dL POC Glucose (mg/dL) 120 H (70-110) mg/dL Calcium (8.4-10.2) mg/dL Alkaline Phosphatase (38-126) U/L C-Reactive Protein (<1.0) mg/dL Total Protein (6.3-8.2) g/dL Albumin (3.5-5.0) g/dL Procalcitonin (0.02-0.09) ng/mL
[2023-03-09 00:11] LABS: Glucose,Whole Blood 108 mg/dL (70-110)
[2023-03-09] MEDS: INSULIN ASPART (NovoLOG) 100 UNIT/ML VIAL SQ SCH ×7 (00:27→23:51)
[2023-03-09 06:05] LABS: African American GFR (CKD) 18 (>60 ml/min/1.73 sqM); Anion Gap 15 mmol/L; Blood Urea Nitrogen 96 mg/dL (9-20); Calcium 8.1 mg/dL (8.4-10.2); Carbon Dioxide 20 mmol/L (22-30); Chloride 101 mmol/L (98-107); Glucose 157 mg/dL (74-99); Non-African American GFR(CKD) 16 (>60 ml/min/1.73 sqM); Potassium 4.9 mmol/L (3.5-5.1); Sodium 136 mmol/L (137-145)
[2023-03-09 06:13] LABS: HCT 27.1 % (39.0-53.0); HGB 8.6 gm/dL (13.0-17.5); MCH 27.4 pg (25.0-35.0); MCHC 31.9 g/dL (31.0-37.0); MCV 86.2 fL (80.0-100.0); Mean Platelet Volume 9.2; Platelet Count 188 k/uL (150-450); RBC 3.14 m/uL (4.30-5.90); RDW 15.6 % (11.5-15.5)
[2023-03-09 06:58] LABS: Glucose,Whole Blood 197 mg/dL (70-110)
[2023-03-09] MEDS: INSULIN DETEMIR (LEVEMIR) 100 UNIT/ML SYR SQ SCH (07:06)
[2023-03-09] MEDS: MIDODRINE 5 MG TAB PO SCH ×2 (07:08→08:14)
--- NOTE | 2023-03-09 07:31 | XR ---
EXAMINATION TYPE: XR chest 1V portable DATE OF EXAM: 03/09/2023 5:37 AM CLINICAL INDICATION:Male, 62 years old with history of left lower lobe pneumonia; [facility] COMPARISON: Chest radiographs from TECHNIQUE: XR chest 1V portable Frontal view of the chest. FINDINGS: Lungs/Pleura: Blunting of the left costophrenic angle with some airspace opacities. Airspace opacitie s in the right lung base are more pronounced to be due to patient positioning. Airspace opacities in left lower lung remain similar. Pulmonary vascularity: Unremarkable. Heart/mediastinum: Cardiomediastinal silhouette is unremarkable. Musculoskeletal: No acute osseous pathology. Other findings: None Lines/Tubes: Nasogastric tube with its distal tip and side-port projecting under the diaphragm. Left central venous catheter with distal tip at the cavoatrial junction. IMPRESSION: 1. Nasogastric tube and left support line in appropriate position. 2. Small left pleural effusion with cardiomegaly. 3. Airspace opacities projecting over the left lower lung are similar and medial right lower lung wh ich are more pronounced.
[2023-03-09] MEDS: ANIDULAFUNGIN 100 MG in SODIUM CHLORIDE 0.9% 100 ML IVPB SCH (08:13)
[2023-03-09] MEDS: PANTOPRAZOLE 40 MG/10 ML VIAL IVP SCH (08:13)
[2023-03-09] MEDS: allopurinoL 100 MG TAB PO SCH (08:13)
[2023-03-09] MEDS: FOLIC ACID 1 MG TAB PO SCH (08:13)
[2023-03-09] MEDS: HEPARIN SODIUM,PORCINE 5,000 UNIT/ML 1 ML VIAL SQ SCH ×2 (08:15→21:59)
[2023-03-09] MEDS ORDERED: MIDODRINE 5 MG TAB PO PRN (09:02)
--- NOTE | 2023-03-09 09:06 | P.PN ---
Subjective Progress Note Date: 03/09/23 The patient is a 62-year-old male who presented to the hospital after mechanical fall. The patient was on the observation unit when he had a PEA arrest with approximate downtime of 5 minutes. Patient was initiated on low-dose beta blockers and has been weaning off of his midodrine. He was successfully ex tubated yesterday. He is more alert at the time of my exam this morning. He has quite confused acc ording to the nursing staff and is asking to be discharged from the hospital. He states he does not want to undergo dialysis. He denies any pain. GENERAL: Ill-appearing, well-nourished male. Disoriented to place and time. NECK: Supple without JVD or thyromegaly. LUNGS: Breath sounds diminished to auscultation bilaterally. Respiration equal and unlabored. Bilateral rhonchi HEART: Regular rate and rhythm without murmurs, rubs or gallops. S1 and S2 heard. EXTREMITIES: Normal range of motion, no edema. No clubbing or cyanosis. Palpable peripheral pulses, weak. Ulcers on bilateral great toes. TELEMETRY: Sinus tachycardia with heart rates in the low 100s LABS: WBC 15.0, hemoglobin 8.6, hematocrit 27.1, platelet 188, sodium 136, potassium 4.9, BUN 96, creatinine 3.89 IMPRESSION: Status post cardiac arrest, PEA Acute hypoxic respiratory failure Acute renal failure, on dialysis Cardiomyopathy with severe LV dysfunction Cardiogenic shock History of diabetes PLAN: Resume beta rhys that was discontinued by the primary team Midodrine prior to dialysis only No plans for coronary angiogram at this time due to renal disease Further recommendations to be based upon clinical course I am dictating on behalf of Dr Los Bond's history/physical and assessment/plan. Objective - Vital Signs Vital signs: Vital Signs Temp 98.6 F 03/09/23 04:00 Pulse 104 H 03/09/23 07:00 Resp 21 03/09/23 07:00 BP 122/70 03/09/23 07:00 Pulse Ox 93 L 03/09/23 08:21 FiO2 40 03/08/23 10:50 Intake & Output 03/08/23 03/09/23 03/09/23 18:59 06:59 18:59 Intake Total 110 717 47 Output Total 2805 1410 60 Balance -2695 -693 -13 Weight 83.7 kg Intake: IV 110 110 KVO 110 110 Tube Feeding 517 47 Other 90 Output: Urine 705 910 60 Stool 2100 500 Other: Voiding Method Indwelling Catheter Indwelling Catheter ABP, PAP, CO, CI - Last Documented Arterial Blood Pressure 72/72 - Labs CBC & Chem 7: 03/09/23 05:25 03/09/23 05:25 Labs: Abnormal Lab Results - Last 24 Hours (Table) 03/08/23 03/08/23 03/08/23 Range/Units 03:46 10:46 18:41 WBC (3.8-10.6) k/uL RBC (4.30-5.90) m/uL Hgb (13.0-17.5) gm/dL Hct (39.0-53.0) % RDW (11.5-15.5) % ABG Total CO2 25 H (19-24) mmol/L ABG O2 Saturation 97.5 H (94-97) % Sodium (137-145) mmol/L Carbon Dioxide (22-30) mmol/L BUN (9-20) mg/dL Creatinine (0.66-1.25) mg/dL Glucose (74-99) mg/dL POC Glucose (mg/dL) 69 L (70-110) mg/dL Calcium (8.4-10.2) mg/dL Procalcitonin 12.50 H (0.02-0.09) ng/mL 03/08/23 03/09/23 03/09/23 Range/Units 19:00 05:25 05:25 WBC 15.0 H (3.8-10.6) k/uL RBC 3.14 L (4.30-5.90) m/uL Hgb 8.6 L (13.0-17.5) gm/dL Hct 27.1 L (39.0-53.0) % RDW 15.6 H (11.5-15.5) % ABG Total CO2 (19-24) mmol/L ABG O2 Saturation (94-97) % Sodium 136 L (137-145) mmol/L Carbon Dioxide 20 L (22-30) mmol/L BUN 96 H (9-20) mg/dL Creatinine 3.89 H (0.66-1.25) mg/dL Glucose 157 H (74-99) mg/dL POC Glucose (mg/dL) 120 H (70-110) mg/dL Calcium 8.1 L (8.4-10.2) mg/dL Procalcitonin (0.02-0.09) ng/mL 03/09/23 Range/Units 06:56 WBC (3.8-10.6) k/uL RBC (4.30-5.90) m/uL Hgb (13.0-17.5) gm/dL Hct (39.0-53.0) % RDW (11.5-15.5) % ABG Total CO2 (19-24) mmol/L ABG O2 Saturation (94-97) % Sodium (137-145) mmol/L Carbon Dioxide (22-30) mmol/L BUN (9-20) mg/dL Creatinine (0.66-1.25) mg/dL Glucose (74-99) mg/dL POC Glucose (mg/dL) 197 H (70-110) mg/dL Calcium (8.4-10.2) mg/dL Procalcitonin (0.02-0.09) ng/mL
--- NOTE | 2023-03-09 09:16 | P.PN ---
Subjective Progress Note Date: 03/09/23 I am seeing this patient in new consultation today 03/01/2023 in the intensive care unit, after the patient had a witnessed PEA cardiac arrest while on the Observation unit. Patient is a 62-year-old white male with past medical history significant for diabetes mellitus, diabetic foot ulcers, hypertension, hyperlipidemia, iron deficiency anemia, chronic kidney disease. Patient is currently sedated and intubated on the mechanical ventilator. He was admitted yesterday morning, after being found on the floor by his father. Apparently, the patient denied hitting his head or losing consciousness. Patient does have diabetes mellitus, and his blood sugars had been running high at home. Chest x- ray on admission showed a left lower lobe infiltrate consistent with community acquired pneumonia. Patient did have a fever with a T-max of 100.7F. Apparently, after being admitted to the observation unt, the patient was noted to have low blood pressure. The patient was given 1 L normal saline bolus and 5 amps sodium bicarb. Soon after, the patient had a cardiac arrest. Presenting rhythm was PEA. Patient had a limited downtime of less than 5 minutes. He received 1 mg of epinephrine. Rapid sequence intubation was performed. The patient was then transferred to the intensive care unit. Dr. Lacy did come in and place a left subclavian central line catheter and a right wrist arterial line. Patient was also noted to be in acute renal failure. He did have a right femoral hemodialysis catheter placed earlier, and is currently undergoing emergent hemodialysis. Patient is currently in the intensive care unit, intubated to the mechanical ventilator. He is sedated on propofol which is currently infusing at 40 mcg/kg/m. He is synchronous with the mechanical ventilator. Postintubation ABG shows a pO2 greater than 400, pCO2 27, pH of 7.43, this was done on ventilator settings of assist control, respiratory rate 22, tidal volume 500, FiO2 100%, and PEEP of 5. Patient's FiO2 was dropped to 50%. Peak pressures 27. Post intubation chest x-ray shows the endotracheal tube 4 cm above the anika. Oral gastric tube could be advanced 5 cm. There is a persistent left lower lobe infiltrate. Most recent CBC from yesterday evening showed a WBC count of 7.8, hemoglobin 7.1, hematocrit 22.7, platelets 120. No obvious acute blood loss was noted. Most recent available BMP shows sodium 140, potassium 4.6, chloride 107, serum bicarb 15, BUN 107, creatinine 7.82, glucose 282. Acetone negative. LFTs not elevated. CPK 1240. Currently, 3 A sodium bicarb in D5W is infusing at 100 ML's per hour. There is also normal saline infusing at 130 ML's per hour. Patient is currently anuric. Troponins elevated at 0.457, 0.388, and 0.422 respectively. ECG shows normal sinus rhythm without any obvious acute ischemic changes. Urinalysis not concerning for UTI. Lactic acid level was elevated at 4 is down 1.6. Negative for influenza, RSV, COVID- 19. Patient was started on empiric antibiotics in the form of ceftriaxone and azithromycin. Currently afebrile. Patient's condition is currently critical, moderate in the intensive care unit. Progress note dated 03/02/2023. 62-year-old male who was seen in consultation yesterday, status post cardiopulmonary arrest. The patient had a witnessed PEA arrest. He had a very short resuscitation time of about 5 minutes. The patient was transferred to the intensive care unit. I came into the hospital, on Sunday evening, and placed a right radial art line, and a left subclavian triple-lumen catheter. Remains in the intensive care unit, on the ventilator. Currently, the patient is on the volume assist control, rate 22, tidal volume 500, FiO2 50% PEEP of 5. Blood gases show pO2 of 97, pCO2 25, and pH is 7.53. The patient is receiving saline at 100 mL an hour, propofol at 40 mcg/kg/m, norepinephrine at 7.7 mcg/m, and vital high protein at 35 mL an hour, with a goal of 54 mL an hour. White count 12.1, hemoglobin 8.2, hematocrit 25.1, and platelet count 139,000. Sodium is 137, potassium 3.6, chlorides 105, CO2 18, anion gap 14, BUN 73, and creatinine 5.21. Calcium is 7.1. Today, is likely a dialysis day. Culture information is pending or negative. Chest x-ray continues to show a consolidative process, in the left midlung left lower lobe area. Progress note dated 03/03/2023. 62-year-old male who is seen today in room 264. The patient remains on mechanical ventilator, having sustained a cardiopulmonary arrest. Ventilator settings include the volume assist control, rate 22, tidal volume 500, FiO2 50%, and PEEP of 5. Arterial blood gases show pO2 38, pCO2 34, and the pH is 7.45. The patient remains on norepinephrine at 5 mcg/m, propofol at 30 mcg/kg/m, and saline at 100 mL an hour. The patient's also getting vital high protein at 69 mL an hour, which is goal. White count is 11, hemoglobin 8.3, hematocrit 25.3, and platelet count 109,000. Sodium 134, potassium 3.2, chlorides 103, CO2 19, BUN 56, and creatinine 3.35. Microbiologic sampling as as far negative. Chest x-ray shows extensive infiltrate, and left midlung and left lower lobe area. The patient continues on Zosyn and Levaquin. Yesterday, we attempted a daily interruption of sedation, and the patient did not do well. We will attempt that again today. Progress note dated 03/04/2023. 62-year-old male, seen again in room 264. The patient remains on the mechanical ventilator. He is status post brief cardiopulmonary arrest, with cardiop ulmonary resuscitation, and return of spontaneous circulation. The cardiac arrest was brief, lasting maybe 5-7 minutes. Current ventilator settings include the volume assist control, rate 22, tidal volume 500, FiO2 50%, and PEEP of 5. Blood gases show pO2 of 73, pCO2 31, and pH 7.51. The patient continues on propofol at 35 mcg/kg/m, norepinephrine at 4 mcg/m, and saline at KVO. The patient is getting vital high protein at 69 mL an hour, which is goal. His Legionella urinary antigen was positive. His chest x-ray continues to show a left-sided infiltrate. He did have hemodialysis yesterday, and 1 L of fluid was removed. White count 10.4, hemoglobin 8.6, hematocrit 26.8, and platelet count 82,000. Sodium 133, potassium 3.8, chlorides 102, CO2 21, BUN 52, creatinine 2.55. Chest x-ray shows a patchy infiltrate, involving the left midlung and left lower lobe area. The chest x-ray in my opinion is essentially unchanged. On 03/05/2023, I'm seeing the patient in the intensive care unit. The patient is currently intubated on a mechanical ventilator. The patient is post cardiac arrest that occurred on 02/28/2023. The patient presented to us with an acute kidney injury on top of chronic kidney failure. He was profoundly acidotic at the time of admission and the serum bicarb was down to 10. No significant hyperkalemia. He was admitted to the medical/he had a cardiac arrest. His down time was estimated to be more than 5 minutes. He received at least 5 minutes of CPR and there was return of spontaneous circulation. His echocardiogram shows severely and. Impaired LV function with an EF of around 20-25%. Since then, the patient has not had any major cardiac events. His cardiac rhythm is sinus. He is currently undergoing hemodialysis for end-stage renal disease. Note that the patient has sustained an acute kidney injury on top of his chronic kidney failure. His baseline GFR was 18 and the patient has chronic stage IV kidney disease. He has a hemodialysis catheter in his right femoral. 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 Meanwhile, he remains intubated on a mechanical ventilator. His calm and comfortable on propofol which is running at 20 mcg/kg/m. He is receiving daily sedation holidays. He was not felt to be neurologically awake enough to be extubated. His most recent CAT scan of the brain was done on 03/04/2023 and the patient was not found to have an acute abnormalities. The patient had mild to moderate generalized brain atrophy. No edema. No stroke. Neurology is on the case and the patient was given an EGD today and there is also still pending for now. Hemodynamically, the patient is requiring low-dose norepinephrine at 0.04 mcg/kg/m. He is afebrile. His most recent chest x-ray that was done today showed extensive consolidation of the left lower lobe and the lingula. Legionella urine antigen was positive and this is likely a Legionella pneumonia. This was present on earlier chest x-rays that dates back to 02/28/2023. It is likely that the patient presented to us with a pneumonia. Possibility of a aspiration pneumonia at a time of his cardiac arrest cannot be completely ruled out. His sputum is negative. Blood cultures negative. Antibiotic coverage is a combination of Zosyn and Levaquin. He is diabetic on Levemir insulin 20 units and is also taking NovoLog 7 units 3 times a day. Enteral feeding for nutritional support and the patient is currently on vital HP at at the rate of 69 mL an hour. He is afebrile. No other significant events overnight. His current ventilator s ettings include an assist-control mode rate of 24, tidal volume of 500, FiO2 of 50% with a PEEP of 5. The blood gas shows a pH of 7.46 with a pCO2 of 28 and pO2 of 86. On 03/06/2023, the patient is opening his eyes spontaneously. He is tracking. Is not following any commands. He is currently on 15 mcg/kg/m of propofol and when a positive further weaning this propofol. His overall respiratory status is stable. Is currently on assist control mode with a rate of 16, tidal volume of 500, FiO2 of 40% with a PEEP of 5. As mentioned earlier, he has a Legionella left lower lobe pneumonia and he continues to have persistent consolidation of the left lower lobe. Blood gas from today shows a pH of 7.46 with a pCO2 of 33 and pO2 of 67 and this was done on the above-mentioned ventilator settings. Meanwhile, the patient is still requiring low-dose pressors. Currently on norepinephrine running at 0.03 mcg/kg/m. He is undergoing periodic dialysis as the patient sustained an acute kidney injury on top of his chronic kidney failure. His last session of hemodialysis was yesterday and the patient was also infiltrated for a total of 0.5 L. His urine output as such is minimal at this point. Urine is a 78 with a creatinine of 2.8 and a sodium level is 132. Serum bicarbs of 19. White cell cause of 14.4 with a hemoglobin of 9.1 and a platelet count of 110. Neurologically, as stated, the patient had a negative CAT scan of the brain. EEG showed slowing moderate to severe degree of slowing, generalized dysfunction, no evidence of any seizure activity. Neurology is on the case. He remains on Levaquin. Fecal management system in Place and the patient is still stooling, liquid stool and stool for C. diff has been negative. Blood cultures have been negative. He remains on Levemir insulin 20 units along with NovoLog 7 units [id number] plus a sliding scale coverage. IV fluids are currently at KVO. As stated, he has severe impairment of LV function with an ejection fraction of 20-25%. Cardiac rhythm remained sinus. on 03/07/2023, I'm seeing the patient for a follow-up. The patient remains intubated on mechanical ventilator. We will gradually weaning him off the sedation. He was taken off propofol as of 5 AM this morning. He is currently on no sedation. We have noticed ongoing but slow improvement in his level of alertness and I was told that he was intermittently following commands. This is quite encouraging . Furthermore, the patient remains on a mechanical ventilator. Today, his assist control of 16, tidal volume of 450, FiO2 of 40% and a PEEP of 5. Blood gas shows a pH of 7.44 with a pCO2 of 31 and pO2 of 94. His chest x-ray still showing consolidation of the left lower lobe related to his Legionella pneumonia. No significant respiratory secretions. We'll check his weaning parameters after he completes his hemodialysis which is currently in progress and he has another 2 hours to go.. The patient is producing some urine output and his urine output is in order of 10-50 mL an hour. His BUN is 104 and a creatinine 3.6 which is elevated compared to yesterday and the patient is still renal failure. Sodium level is at 133 and a bicarb level is at 17 is currently on IV fluids at [facility]. The white cell cause at 17.5, hemoglobin is at 8.7 and a platelet count is 132. Is on no pressors. He is hemodynamically stable. He is afebrile. He is on enteral feeding which was placed on hold in anticipation for possible extubation today. Despite his improved level of alertness, he remains profoundly weak in his upper extremities. He is doing minimal movement compared to yesterday using his arms. He doesn't reach. He tracks. He occasionally follows simple commands. His blood sugars under adequate control on Levemir insulin 20 units and is also taking 7 units of NovoLog with meals. He remains on Levaquin. No other significant events overnight. 03/08/2023, I'm seeing the patient for a follow-up. The patient remained off sedation. On today's evaluation, the patient is moving his arms, is able to wiggle his toes, is able to follow commands. He is opening his eyes spontaneously. Is tracking. Is off sedation. He was able to do some CPAP trials yesterday and overnight he was Assist-Control Mode of Mechanical V entilation. Earlier This Morning, He Was a Tidal Volume of 450, FiO2 Was at 40% with a PEEP of 5 and a Respiratory Rate of 16. His Weaning Parameters Are Adequate. Is Unable to Give Me a Good NIF and VC , however his rapid shallow breathing index was less than 50. The patient accordingly was switched to a pressure support of 5 and a PEEP of 5 is able to generate tidal volumes of about 400 and his respiratory rate is currently at 20. No significant orotracheal secretions. He has an acceptable gag upon suctioning. He continues to have a left lower lobe consolidation regarding his left lung Legionella pneumonia. The patient was psychotic 60 with a hemoglobin of 8.6 and a platelet count of 147. Blood gas from today showed a pH of 7.44 with a pCO2 of 35 and pO2 of 103. He underwent hemodialysis yesterday and his creatinine is down to 3.1 with a BUN of 78 and sodium levels of 132 and a potassium level is at 4.4. Doppler of the upper extremity was done and it showed no evidence of any DVT in the left upper extremity. There was superficial venous thromboses in the cephalic vein. The patient is currently receiving enteral feeding for nutritional support. This was placed on hold in anticipation for possible extubation. Meanwhile, the patient has developed some diarrhea. He has a fecal management system in Place. 03/09/2023, the patient remains extubated. Noted the patient was weaned off the mechanical ventilator and the patient was extubated yesterday and currently is on room air oxygen. He is awake and alert and communicating. He is profoundly weak. Barely is able to wiggle his toes and he is unable to raise his arms against gravity. There is a very weak Handgrip. At the same time, the patient is not having any signs of respiratory distress. He has an NG tube in place. He is receiving enteral feeding for nutritional support and the patient is currently on Glucerna running at the rate of 47. He's an hour. His chest x-ray shows a persistent consolidation of left lung base related to Legionella pneumonia. Urine output is in order of 60 mL an hour and the patient is currently undergoing dialysis with a goal of ultrafiltration of 2.8 L. No agita tion. BUN is at 96 with a creatinine of 3.8 and a sodium level is at 136. The white cell count of 15 with a hemoglobin of 8.6 and a platelet count of 188. He has a liquidy stool and he had no C diff Objective - Vital Signs Vital signs: Vital Signs Temp 98.6 F 03/09/23 04:00 Pulse 104 H 03/09/23 07:00 Resp 21 03/09/23 07:00 BP 122/70 03/09/23 07:00 Pulse Ox 93 L 03/09/23 08:21 FiO2 40 03/08/23 10:50 Intake & Output 03/08/23 03/09/23 03/09/23 18:59 06:59 18:59 Intake Total 110 717 47 Output Total 2805 1410 60 Balance -2695 -693 -13 Weight 83.7 kg Intake: IV 110 110 KVO 110 110 Tube Feeding 517 47 Other 90 Output: Urine 705 910 60 Stool 2100 500 Other: Voiding Method Indwelling Catheter Indwelling Catheter ABP, PAP, CO, CI - Last Documented Arterial Blood Pressure 72/72 - Exam No acute distress, awake NG tube. Calm and comfortable. The patient is following simple commands. His profoundly weak. Breathing is nonlabored and he remains extubated on room air oxygen. Head exam was generally normal. There was no scleral icterus or corneal arcus. Mucous membranes were moist. HEENT examination is grossly unremarkable. Neck supple. Full range of motion. No adenopathy thyromegaly or neck vein dist ention. Cardiovascular examination reveals regular rhythm rate. S1-S2 normal. No S3 or S4. No discernible murmur noted. Heart sounds are distant. Lungs reveal bilateral rhonchi. No wheezes or crackles. Breath sounds are equal. Abdomen soft bowel sounds are heard. No masses or tenderness. The patient has a dialysis catheter, dialysis catheter in his right femoral vein. Extremities are intact. No cyanosis clubbing or edema. Skin is without rash or lesion. Neurologic examination is awake, communicating, following simple commands, profoundly weak especially in his lower extremity, motor power is 1 out of 5 in both upper and lower extremities. - Labs CBC & Chem 7: 03/09/23 05:25 03/09/23 05:25 Labs: Abnormal Lab Results - Last 24 Hours (Table) 03/08/23 03/08/23 03/08/23 Range/Units 03:46 10:46 18:41 WBC (3.8-10.6) k/uL RBC (4.30-5.90) m/uL Hgb (13.0-17.5) gm/dL Hct (39.0-53.0) % RDW (11.5-15.5) % ABG Total CO2 25 H (19-24) mmol/L ABG O2 Saturation 97.5 H (94-97) % Sodium (137-145) mmol/L Carbon Dioxide (22-30) mmol/L BUN (9-20) mg/dL Creatinine (0.66-1.25) mg/dL Glucose (74-99) mg/dL POC Glucose (mg/dL) 69 L (70-110) mg/dL Calcium (8.4-10.2) mg/dL Procalcitonin 12.50 H (0.02-0.09) ng/mL 03/08/23 03/09/23 03/09/23 Range/Units 19:00 05:25 05:25 WBC 15.0 H (3.8-10.6) k/uL RBC 3.14 L (4.30-5.90) m/uL Hgb 8.6 L (13.0-17.5) gm/dL Hct 27.1 L (39.0-53.0) % RDW 15.6 H (11.5-15.5) % ABG Total CO2 (19-24) mmol/L ABG O2 Saturation (94-97) % Sodium 136 L (137-145) mmol/L Carbon Dioxide 20 L (22-30) mmol/L BUN 96 H (9-20) mg/dL Creatinine 3.89 H (0.66-1.25) mg/dL Glucose 157 H (74-99) mg/dL POC Glucose (mg/dL) 120 H (70-110) mg/dL Calcium 8.1 L (8.4-10.2) mg/dL Procalcitonin (0.02-0.09) ng/mL 03/09/23 Range/Units 06:56 WBC (3.8-10.6) k/uL RBC (4.30-5.90) m/uL Hgb (13.0-17.5) gm/dL Hct (39.0-53.0) % RDW (11.5-15.5) % ABG Total CO2 (19-24) mmol/L ABG O2 Saturation (94-97) % Sodium (137-145) mmol/L Carbon Dioxide (22-30) mmol/L BUN (9-20) mg/dL Creatinine (0.66-1.25) mg/dL Glucose (74-99) mg/dL POC Glucose (mg/dL) 197 H (70-110) mg/dL Calcium (8.4-10.2) mg/dL Procalcitonin (0.02-0.09) ng/mL Assessment and Plan Plan: Witnessed PEA cardiac arrest with a limited down time of less than 5 minutes. The cardiac arrest occurred on 02/28/2023. Patient remains intubated on mechanical ventilator. CAT scan of the brain that was done on 03/04/2023 showed no acute abnormalities. Anoxic encephalopathy with slow improvement of currently awake and alert, generalized motor weakness in all 4 extremities noted. Acute hypoxemic respiratory failure, requiring intubation and mechanical ventilation. Extubated on 03/08/2020. The patient is currently on room air oxygen Left lower lobe community-acquired pneumonia and sepsis, secondary to Legionella pneumophila. Chest x-ray remains unchanged Severe cardiomyopathy with an ejection fraction of 20-25% Hypotension, probably due to a combination of septic and cardiogenic as the patient has impaired LV function. The patient is currently off norepinephrine Metabolic anion gap acidosis, secondary to lactic acidosis and sepsis, recovered Chronic stage IV kidney disease Acute on chronic kidney disease, currently receiving hemodialysis. Undergoing periodic dialysis and the patient is currently undergoing dialysis Acute rhabdomyolysis, with mildly elevated CPK. Elevated troponins, likely related to supply/demand mismatch. Anemia of chronic disease, hemoglobin lower than baseline. Diabetes mellitus, insulin-dependent. Hyperlipidemia Diarrhea, patient has a fecal management system in Place. Stool for C. diff has been negative Superficial venous thrombosis of the cephalic veins based on ultrasound and the patient does have some edema in the left upper extremity. Diarrhea, improving/thickening and the patient had a negative C. diff. Chronic draining wounds in his feet bilaterally, largest the sole of the left foot with minimal amount of purulent drainage. No surrounding cellulitis. 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 Plan Extubated to room air oxygen Complete hemodialysis per nephrology and goal is a total of 2.8 L of ultrafiltration Continue Levaquin Check stool for C. diff colitis was negative off pressors Initiate physical therapy Patient is able to swallow. Nevertheless, his ability to meet caloric requirements are poor. We'll continue to use the enteral feeding for now Possible extubation within the next few hours Continue Levemir insulin Continue rest of the supportive care Left upper extremity superficial vein thrombosis the patient will need a permacath at the later stage Wound services to consult on the chronic lower extremity/feet ulceration obtain wound cultures Condition is critical. The family will be updated on his condition. We'll continue to follow make further recommendations based on his progress. His evaluation was done in more than 30 minutes.
[2023-03-09] MEDS: METOPROLOL TARTRATE 25 MG TAB PO SCH ×3 (09:21→21:59)
--- NOTE | 2023-03-09 10:49 | P.PN ---
Subjective Patient is seen in follow-up for acute kidney injury on chronic kidney disease. Started on hemodialysis 03/01/2023. Urine output continues to improve and now 75-100 mL an hour. Extubated. Vital signs are stable. Off vasopressor support. General: Resting in bed. HEENT: NG tube noted. LUNGS: Scattered rhonchi. HEART: Rate and Rhythm are regular. ABDOMEN: No distention. EXTREMITITES: No edema. Objective - Vital Signs Vital signs: Vital Signs Temp 97.8 F 03/09/23 08:00 Pulse 94 03/09/23 10:00 Resp 18 03/09/23 10:00 BP 109/66 03/09/23 10:00 Pulse Ox 97 03/09/23 10:00 FiO2 40 03/08/23 10:50 Intake & Output 03/08/23 03/09/23 03/09/23 18:59 06:59 18:59 Intake Total 110 717 194 Output Total 2805 1410 295 Balance -2695 -693 -101 Weight 83.7 kg Intake: IV 110 110 100 Anidulafungin 100 mg In 100 Sodium Chloride 0.9% 100 ml @ 84 mls/hr IVPB DAILY [facility] Rx#:[id number] KVO 110 110 Tube Feeding 517 94 Other 90 Output: Urine 705 910 295 Stool 2100 500 Other: Voiding Method Indwelling Catheter Indwelling Catheter # Bowel Movements 0 ABP, PAP, CO, CI - Last Documented Arterial Blood Pressure 72/72 - Labs CBC & Chem 7: 03/09/23 05:25 03/09/23 05:25 Labs: Abnormal Lab Results - Last 24 Hours (Table) 03/08/23 03/08/23 03/08/23 Range/Units 03:46 10:46 18:41 WBC (3.8-10.6) k/uL RBC (4.30-5.90) m/uL Hgb (13.0-17.5) gm/dL Hct (39.0-53.0) % RDW (11.5-15.5) % ABG Total CO2 25 H (19-24) mmol/L ABG O2 Saturation 97.5 H (94-97) % Sodium (137-145) mmol/L Carbon Dioxide (22-30) mmol/L BUN (9-20) mg/dL Creatinine (0.66-1.25) mg/dL Glucose (74-99) mg/dL POC Glucose (mg/dL) 69 L (70-110) mg/dL Calcium (8.4-10.2) mg/dL Procalcitonin 12.50 H (0.02-0.09) ng/mL 03/08/23 03/09/23 03/09/23 Range/Units 19:00 05:25 05:25 WBC 15.0 H (3.8-10.6) k/uL RBC 3.14 L (4.30-5.90) m/uL Hgb 8.6 L (13.0-17.5) gm/dL Hct 27.1 L (39.0-53.0) % RDW 15.6 H (11.5-15.5) % ABG Total CO2 (19-24) mmol/L ABG O2 Saturation (94-97) % Sodium 136 L (137-145) mmol/L Carbon Dioxide 20 L (22-30) mmol/L BUN 96 H (9-20) mg/dL Creatinine 3.89 H (0.66-1.25) mg/dL Glucose 157 H (74-99) mg/dL POC Glucose (mg/dL) 120 H (70-110) mg/dL Calcium 8.1 L (8.4-10.2) mg/dL Procalcitonin (0.02-0.09) ng/mL 03/09/23 Range/Units 06:56 WBC (3.8-10.6) k/uL RBC (4.30-5.90) m/uL Hgb (13.0-17.5) gm/dL Hct (39.0-53.0) % RDW (11.5-15.5) % ABG Total CO2 (19-24) mmol/L ABG O2 Saturation (94-97) % Sodium (137-145) mmol/L Carbon Dioxide (22-30) mmol/L BUN (9-20) mg/dL Creatinine (0.66-1.25) mg/dL Glucose (74-99) mg/dL POC Glucose (mg/dL) 197 H (70-110) mg/dL Calcium (8.4-10.2) mg/dL Procalcitonin (0.02-0.09) ng/mL Assessment and Plan Plan: Assessment: 1. Acute kidney injury secondary to ATN secondary to cardiopulmonary arrest. Started on hemodialysis 03/01/2023. Has a permacath. Urine output continues to improve and is now 75-100 mL an hour. 2. Cardiopulmonary arrest. 3. 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 CKD appears to have progressed with creatinine in the range of 3.1-3.4 in April and July 2022. 4. Chronic kidney disease mineral bone disease maintained on Calcitrol. 5. Diabetes mellitus. 6. Shock s/p Levophed. 7. Anemia of chronic kidney disease. High ferritin noted. On Aranesp. 8. Respiratory alkalosis with metabolic acidosis. Stable. Plan: Currently seen while undergoing hemodialysis. Add IV Lasix 80 mg once daily. Phosphorus 5.2 dated 03/05/2023. Maintain midodrine. Hold for systolic blood pressure greater than 110. Maintain tube feeds. Add oral bicarbonate. Discontinue femoral dialysis catheter after dialysis today. Plan to hold dialysis over the weekend and reassess need for further renal replacement therapy on Sunday. Patient will need a permacath placed if dialysis will need to be continued. Discussed with square shear operator, vascular surgeon and patient's nurse.
[2023-03-09 11:11] LABS: Glucose,Whole Blood 86 mg/dL (70-110)
--- NOTE | 2023-03-09 11:43 | P.PN ---
Subjective Progress Note Date: 03/09/23 Patient is a 62-year-old male with chronic kidney disease stage IV/5, hypertension, gout, and diabetes mellitus Type 2 who presented to the ED after being found down by his father. In the ER he underwent an externsive evaluation and was found to have ROSANGELA on CKD with hyperkalemia and significant metabolic acidosis, pneumonia with sepsis, rhabdo, and encephalopathy. He was admitted and was started on Rocephin and Zithromax as well as IV fluids. Nephrology was consulted. Shortly after admission the patient suffered a PEA cardiac arrest with down time was less than 5 minutes. He required vasopressors immediately afterward. He had an emergent central line and hemodialysis catheter placed. He underwent emergent hemodialysis due to his acidosis. He was followed by critical care and nephrology. Infectious disease was consulted Rocephin was discontinued and he was started on Zosyn. An echocardiogram which showed ejection fraction 20-25% with moderate TR and MR and therefore cardiology was consulted. Renal ultrasound showed gallbladder wall thickening but no signs of hydronephrosis or nephrolithiasis. His legionella urine antigen Positive and he was subsequently transitioned to Levaquin. Patient was not doing well with sedation holidays and neurology was subsequently consulted. He underwent a head CT which showed chronic micro vascular ischemic changes and an EEG which showed moderate to severe background slowing. Left upper extremity venous Doppler showed no evidence of DVT but did show cephalic vein superficial thrombosis. He was successfully extubated on 03/08. Patient seen and examined at bedside. He is more awake and alert today. He is unable to answer my questions as to where he is at or what month or year it is. He does tell me he feels "okay". Vital signs reviewed General: nontoxic, no distress, appears at stated age Cardiovascular: S1S2 reg, no murmur, Lungs:Decreased bs bilateral, no rhonchi, no rales , no accessory muscle use Abdominal: soft, nontender to palpation, no guarding, no appreciable organomegaly Ext: no gross muscle atrophy, diffuse anasarca, no contractures Neuro: CN II-XI grossly intact, moving all 4 extremities independently. Psych: awake, alert to delf. Assessment/Plan: Legionella pneumonia with septic shock now resolved Acute hypoxic respiratory failure, improved Oral pharyngeal candidiasis Encephalopathy, metabolic and possible anoxic -Infectious disease, Await further recs -Pulmonary note reviewed: Continue with nasogastric tube - Levaquin 500 mg IV Q48H D#7 , Zosyn 3.375 now discontinued on 03/01-03/05 - Eraxis 100 mg IV piggyback daily D #4, once following more commands can transition to nystatin swish and swallow. - B12, TSH, Ammonia wnl. Systolic cardiomyopathy with ejection fraction 20-25% Elevated troponin due to demand ischemia, flat, not consistent with acute coronary syndrome -Cardiology note reviewed: Metoprolol 25 mg by mouth 3 times daily, transitioned midodrine to as needed -Add parameters to metoprolol to hold for SBP <100 or HR <60 Diabetes mellitus type 2 with -A1c 8.2 -Continue with NovoLog sliding scale, d/c 7 units of NovoLog every 6 hours, Levemir 15 units daily in the morning Acute kidney injury secondary to ATN with cardiac arrest on chronic kidney disease stage IIIB, biopsy-proven diabetic kidney disease a severe interstitial fibrosis Anemia related to chronic kidney disease -Nephrology note reviewed: Discontinue femoral dialysis catheter on the whole dialysis over we25 mg TID ekend and readdress me on Sunday. - avoid nephrotoxic agents - maintain map >65 - follow Cr and urine output for renal recovery Supoerficial thrombosis of left cephalic vein - warm compresses as needed Rhabdomyolysis, resolved, statin on hold Thrombocytopenia: HIT panel negative. Heparin restarted. hyperglycemia (resolved) PEA arrest Imaging: None new reviewed Data Review: Labs reviewed today include CBC and basic metabolic profile which show white blood cell count 15, hemoglobin 8.6, platelets are up to 188, sodium 136, BUN 86, creatinine 3.89 DVT prophylaxis: Heparin SC Anticipated discharge date: Pending Clinical Course Anticipated discharge place: Pending Clinical Course This dictation was prepared using [employer] voice recognition software. Though every attempt is made to correct errors during dictation some may still exist. Objective - Vital Signs Vital signs: Vital Signs Temp 97.8 F 03/09/23 08:00 Pulse 87 03/09/23 11:00 Resp 17 03/09/23 11:00 BP 98/59 03/09/23 11:00 Pulse Ox 96 03/09/23 11:00 FiO2 40 03/08/23 10:50 Intake & Output 03/08/23 03/09/23 03/09/23 18:59 06:59 18:59 Intake Total 110 717 194 Output Total 2805 1410 295 Balance -2695 -693 -101 Weight 83.7 kg 83.7 kg Intake: IV 110 110 100 Anidulafungin 100 mg In 100 Sodium Chloride 0.9% 100 ml @ 84 mls/hr IVPB DAILY [facility] Rx#:[id number] KVO 110 110 Tube Feeding 517 94 Other 90 Output: Urine 705 910 295 Stool 2100 500 Other: Voiding Method Indwelling Catheter Indwelling Catheter Indwelling Catheter # Bowel Movements 0 ABP, PAP, CO, CI - Last Documented Arterial Blood Pressure - Labs CBC & Chem 7: 03/09/23 05:25 03/09/23 05:25 Labs: Abnormal Lab Results - Last 24 Hours (Table) 03/08/23 03/08/23 03/08/23 Range/Units 03:46 18:41 19:00 WBC (3.8-10.6) k/uL RBC (4.30-5.90) m/uL Hgb (13.0-17.5) gm/dL Hct (39.0-53.0) % RDW (11.5-15.5) % Sodium (137-145) mmol/L Carbon Dioxide (22-30) mmol/L BUN (9-20) mg/dL Creatinine (0.66-1.25) mg/dL Glucose (74-99) mg/dL POC Glucose (mg/dL) 69 L 120 H (70-110) mg/dL Calcium (8.4-10.2) mg/dL Procalcitonin 12.50 H (0.02-0.09) ng/mL 03/09/23 03/09/23 03/09/23 Range/Units 05:25 05:25 06:56 WBC 15.0 H (3.8-10.6) k/uL RBC 3.14 L (4.30-5.90) m/uL Hgb 8.6 L (13.0-17.5) gm/dL Hct 27.1 L (39.0-53.0) % RDW 15.6 H (11.5-15.5) % Sodium 136 L (137-145) mmol/L Carbon Dioxide 20 L (22-30) mmol/L BUN 96 H (9-20) mg/dL Creatinine 3.89 H (0.66-1.25) mg/dL Glucose 157 H (74-99) mg/dL POC Glucose (mg/dL) 197 H (70-110) mg/dL Calcium 8.1 L (8.4-10.2) mg/dL Procalcitonin (0.02-0.09) ng/mL
--- NOTE | 2023-03-09 12:24 | P.PN ---
Subjective Progress Note Date: 03/09/23 Principal diagnosis: Sepsis and Legionella pneumonia Patient is a 62-year-old male with a past medical history significant for diabetes mellitus hypertension renal insufficiency patient was brought into the ER concerning for weakness and did have some respiratory symptoms patient did have a fever and worsening respiratory status requiring intubation and admission to the ICU the patient urine for digital antigen came back positive evening of 03/01/2023. On today's evaluation that is 03/09/2023 patient continues to be afebrile, the patient is hemodynamically stable not requiring any pressor support, patient has been extubated and is breathing comfortably on 3 L nasal canal oxygen denies any chest pain and no worsening cough and no worsening diarrhea reported by the nursing staff Patient white count is down to 15,000 creatinine is 3.89, blood and sputum cultures so far negative, urine for Legionella antigen is positive, stool for C. diff is negative Objective - Vital Signs Vital signs: Vital Signs Temp 97.7 F 03/09/23 12:00 Pulse 84 03/09/23 12:00 Resp 18 03/09/23 12:00 BP 110/65 03/09/23 12:00 Pulse Ox 97 03/09/23 12:00 FiO2 40 03/08/23 10:50 Intake & Output 03/08/23 03/09/23 03/09/23 18:59 06:59 18:59 Intake Total 110 717 556 Output Total 2805 1410 370 Balance -3321 -663 186 Weight 83.7 kg 83.7 kg Intake: IV 110 110 120 Anidulafungin 100 mg In 100 Sodium Chloride 0.9% 100 ml @ 84 mls/hr IVPB DAILY [facility] Rx#:[id number] Invasive Line 1 20 KVO 110 110 Tube Feeding 517 376 Other 90 60 Output: Urine 705 910 370 Stool 2100 500 Other: Voiding Method Indwelling Catheter Indwelling Catheter Indwelling Catheter # Bowel Movements 0 ABP, PAP, CO, CI - Last Documented Arterial Blood Pressure 72/72 - Exam GENERAL DESCRIPTION: Middle-aged male lying in bed in no distress RESPIRATORY SYSTEM: Unlabored breathing , decreased breath sound at the base HEART: S1 S2 regular rate and rhythm , ABDOMEN: Soft , no tenderness EXTREMITIES: No edema feet - Labs CBC & Chem 7: 03/09/23 05:25 03/09/23 05:25 Labs: Abnormal Lab Results - Last 24 Hours (Table) 03/08/23 03/08/23 03/09/23 Range/Units 18:41 19:00 05:25 WBC 15.0 H (3.8-10.6) k/uL RBC 3.14 L (4.30-5.90) m/uL Hgb 8.6 L (13.0-17.5) gm/dL Hct 27.1 L (39.0-53.0) % RDW 15.6 H (11.5-15.5) % Sodium (137-145) mmol/L Carbon Dioxide (22-30) mmol/L BUN (9-20) mg/dL Creatinine (0.66-1.25) mg/dL Glucose (74-99) mg/dL POC Glucose (mg/dL) 69 L 120 H (70-110) mg/dL Calcium (8.4-10.2) mg/dL 03/09/23 03/09/23 Range/Units 05:25 06:56 WBC (3.8-10.6) k/uL RBC (4.30-5.90) m/uL Hgb (13.0-17.5) gm/dL Hct (39.0-53.0) % RDW (11.5-15.5) % Sodium 136 L (137-145) mmol/L Carbon Dioxide 20 L (22-30) mmol/L BUN 96 H (9-20) mg/dL Creatinine 3.89 H (0.66-1.25) mg/dL Glucose 157 H (74-99) mg/dL POC Glucose (mg/dL) 197 H (70-110) mg/dL Calcium 8.1 L (8.4-10.2) mg/dL Assessment and Plan (1) Legionella pneumonia Current Visit: Yes Status: Acute Code(s): A48.1 - LEGIONNAIRES' DISEASE SNOMED Code(s): 439921814 (2) Sepsis Current Visit: Yes Status: Acute Code(s): A41.9 - SEPSIS, UNSPECIFIED ORGANISM SNOMED Code(s): 90485939 Plan: 1patient presented to hospital with sepsis in this patient with a fever tachycardia hypotension source is likely left lower lobe pneumonia in this patient with weakness lethargy and decreased level of responsiveness and the question of community-acquired versus aspiration pneumonia 2-urine for Legionella antigen is positive, sputum cultures are currently negative for any resistant pathogen , patient is currently being treated Lev aquin 3- leukocytosis possible oropharyngeal candidiasis, white count is trending down with eraxis which will be continued and monitor clinical course closely, questions concerned were answered Dictation was produced using [employer] dictation software. please excuse any grammatical, word or spelling errors. Time with Patient: Less than 30
--- NOTE | 2023-03-09 14:46 | OP ---
OPERATIVE REPORT DATE OF SERVICE : PREOPERATIVE DIAGNOSIS: [id number] renal failure. PROCEDURE PERFORMED: Removal of a dialysis catheter, right femoral approach. INDICATIONS FOR PROCEDURE: This patient has a history of renal failure. Kidney function is improving. DESCRIPTION OF PROCEDURE: Right groin was prepped, and drapes were applied in a sterile manner. Stitches were removed, and catheter was removed. Pressures were held. Pressure dressing was applied. The patient tolerated the procedure well. MMODL / IJN: [id number] /
[2023-03-09] MEDS: SODIUM BICARBONATE TAB 650 MG TAB PO SCH ×2 (15:01→21:59)
[2023-03-09] MEDS: FUROSEMIDE 10 MG/ML 10 ML VIAL IV SCH (15:02)
[2023-03-09 17:25] LABS: Glucose,Whole Blood 56 mg/dL (70-110)
[2023-03-09 17:32] LABS: Glucose,Whole Blood 182 mg/dL (70-110)
[2023-03-09] MEDS: LEVOFLOXACIN 500MG-D5W PMX 500 MG in DEXTROSE/WATER 1 100ML.BAG IVPB SCH (17:41)
[2023-03-09 23:50] LABS: Glucose,Whole Blood 73 mg/dL (70-110)
[2023-03-10 01:36] LABS: Glucose,Whole Blood 68 mg/dL (70-110)
[2023-03-10] MEDS: DEXTROSE 50% SYRINGE 50 ML IVP PRN (01:39)
[2023-03-10 02:14] LABS: Glucose,Whole Blood 136 mg/dL (70-110)
--- NOTE | 2023-03-10 06:06 | XR ---
EXAM: XR Chest, 1 View CLINICAL HISTORY: ITS.REASON XR Reason: PNA TECHNIQUE: Frontal view of the chest. COMPARISON: 03/09/2023 FINDINGS: Lungs: Left base consolidation, unchanged from prior. Slight improvement of aeration of the medial right base. Pleural space: Large left pleural effusion, increasing prior studies. No pneumothorax. Heart: Unremarkable. No cardiomegaly. Mediastinum: Stable left subclavian central venous catheter. Nasogastric tube terminates below [id number] in the left upper quadrant.. Normal mediastinal contour. Bones/joints: Unremarkable. No acute fracture. IMPRESSION: 1. Large left pleural effusion, increased from prior study. 2. Stable lines and tubes.
[2023-03-10 06:14] LABS: Glucose,Whole Blood 119 mg/dL (70-110)
[2023-03-10] MEDS: INSULIN ASPART (NovoLOG) 100 UNIT/ML VIAL SQ SCH ×3 (06:18→17:35)
[2023-03-10] MEDS: INSULIN DETEMIR (LEVEMIR) 100 UNIT/ML SYR SQ SCH ×2 (06:19→09:40)
[2023-03-10 06:28] LABS: Basophils % (A) 0 %; Eosinophils # (A) 0.2 k/uL (0-0.7); Eosinophils % (A) 2 %; HGB 8.6 gm/dL (13.0-17.5); Hypochromasia Slight; Lymphocytes # (A) 0.6 k/uL (1.0-4.8); Lymphocytes % (A) 5 %; MCH 27.7 pg (25.0-35.0); MCHC 31.8 g/dL (31.0-37.0); MCV 87.1 fL (80.0-100.0); Mean Platelet Volume 9.3; Monocytes # (A) 0.5 k/uL (0-1.0); Monocytes % (A) 4 %; Neutrophils # (A) 10.9 k/uL (1.3-7.7); Neutrophils % (A) 88 %; Platelet Count 175 k/uL (150-450); WBC 12.3 k/uL (3.8-10.6)
[2023-03-10 06:35] LABS: African American GFR (CKD) 24 (>60 ml/min/1.73 sqM); Anion Gap 11 mmol/L; Blood Urea Nitrogen 75 mg/dL (9-20); Calcium 7.9 mg/dL (8.4-10.2); Carbon Dioxide 23 mmol/L (22-30); Chloride 99 mmol/L (98-107); Glucose 110 mg/dL (74-99); Non-African American GFR(CKD) 21 (>60 ml/min/1.73 sqM); Potassium 4.8 mmol/L (3.5-5.1); Sodium 133 mmol/L (137-145)
[2023-03-10 07:56] LABS: Glucose,Whole Blood 145 mg/dL (70-110)
[2023-03-10] MEDS: FUROSEMIDE 10 MG/ML 10 ML VIAL IV SCH (08:15)
[2023-03-10] MEDS: PANTOPRAZOLE 40 MG/10 ML VIAL IVP SCH (08:15)
[2023-03-10] MEDS: SODIUM BICARBONATE TAB 650 MG TAB PO SCH ×2 (08:16→20:08)
[2023-03-10] MEDS: allopurinoL 100 MG TAB PO SCH (08:16)
[2023-03-10] MEDS: METOPROLOL TARTRATE 25 MG TAB PO SCH ×3 (08:16→22:10)
[2023-03-10] MEDS: ANIDULAFUNGIN 100 MG in SODIUM CHLORIDE 0.9% 100 ML IVPB SCH (08:16)
[2023-03-10] MEDS: HEPARIN SODIUM,PORCINE 5,000 UNIT/ML 1 ML VIAL SQ SCH ×2 (08:16→20:08)
[2023-03-10] MEDS: FOLIC ACID 1 MG TAB PO SCH (08:16)
[2023-03-10] MEDS ORDERED: MIDAZOLAM 2 MG/2 ML VIAL ONE (09:50)
--- NOTE | 2023-03-10 10:00 | P.PN ---
Subjective Progress Note Date: 03/10/23 I am seeing this patient in new consultation today 03/01/2023 in the intensive care unit, after the patient had a witnessed PEA cardiac arrest while on the Observation unit. Patient is a 62-year-old white male with past medical history significant for diabetes mellitus, diabetic foot ulcers, hypertension, hyperlipidemia, iron deficiency anemia, chronic kidney disease. Patient is currently sedated and intubated on the mechanical ventilator. He was admitted yesterday morning, after being found on the floor by his father. Apparently, the patient denied hitting his head or losing consciousness. Patient does have diabetes mellitus, and his blood sugars had been running high at home. Chest x- ray on admission showed a left lower lobe infiltrate consistent with community acquired pneumonia. Patient did have a fever with a T-max of 100.7F. Apparently, after being admitted to the observation unt, the patient was noted to have low blood pressure. The patient was given 1 L normal saline bolus and 5 amps sodium bicarb. Soon after, the patient had a cardiac arrest. Presenting rhythm was PEA. Patient had a limited downtime of less than 5 minutes. He received 1 mg of epinephrine. Rapid sequence intubation was performed. The patient was then transferred to the intensive care unit. Dr. Lacy did come in and place a left subclavian central line catheter and a right wrist arterial line. Patient was also noted to be in acute renal failure. He did have a right femoral hemodialysis catheter placed earlier, and is currently undergoing emergent hemodialysis. Patient is currently in the intensive care unit, intubated to the mechanical ventilator. He is sedated on propofol which is currently infusing at 40 mcg/kg/m. He is synchronous with the mechanical ventilator. Postintubation ABG shows a pO2 greater than 400, pCO2 27, pH of 7.43, this was done on ventilator settings of assist control, respiratory rate 22, tidal volume 500, FiO2 100%, and PEEP of 5. Patient's FiO2 was dropped to 50%. Peak pressures 27. Post intubation chest x-ray shows the endotracheal tube 4 cm above the anika. Oral gastric tube could be advanced 5 cm. There is a persistent left lower lobe infiltrate. Most recent CBC from yesterday evening showed a WBC count of 7.8, hemoglobin 7.1, hematocrit 22.7, platelets 120. No obvious acute blood loss was noted. Most recent available BMP shows sodium 140, potassium 4.6, chloride 107, serum bicarb 15, BUN 107, creatinine 7.82, glucose 282. Acetone negative. LFTs not elevated. CPK 1240. Currently, 3 A sodium bicarb in D5W is infusing at 100 ML's per hour. There is also normal saline infusing at 130 ML's per hour. Patient is currently anuric. Troponins elevated at 0.457, 0.388, and 0.422 respectively. ECG shows normal sinus rhythm without any obvious acute ischemic changes. Urinalysis not concerning for UTI. Lactic acid level was elevated at 4 is down 1.6. Negative for influenza, RSV, COVID- 19. Patient was started on empiric antibiotics in the form of ceftriaxone and azithromycin. Currently afebrile. Patient's condition is currently critical, moderate in the intensive care unit. Progress note dated 03/02/2023. 62-year-old male who was seen in consultation yesterday, status post cardiopulmonary arrest. The patient had a witnessed PEA arrest. He had a very short resuscitation time of about 5 minutes. The patient was transferred to the intensive care unit. I came into the hospital, on Sunday evening, and placed a right radial art line, and a left subclavian triple-lumen catheter. Remains in the intensive care unit, on the ventilator. Currently, the patient is on the volume assist control, rate 22, tidal volume 500, FiO2 50% PEEP of 5. Blood gases show pO2 of 97, pCO2 25, and pH is 7.53. The patient is receiving saline at 100 mL an hour, propofol at 40 mcg/kg/m, norepinephrine at 7.7 mcg/m, and vital high protein at 35 mL an hour, with a goal of 54 mL an hour. White count 12.1, hemoglobin 8.2, hematocrit 25.1, and platelet count 139,000. Sodium is 137, potassium 3.6, chlorides 105, CO2 18, anion gap 14, BUN 73, and creatinine 5.21. Calcium is 7.1. Today, is likely a dialysis day. Culture information is pending or negative. Chest x-ray continues to show a consolidative process, in the left midlung left lower lobe area. Progress note dated 03/03/2023. 62-year-old male who is seen today in room 264. The patient remains on mechanical ventilator, having sustained a cardiopulmonary arrest. Ventilator settings include the volume assist control, rate 22, tidal volume 500, FiO2 50%, and PEEP of 5. Arterial blood gases show pO2 38, pCO2 34, and the pH is 7.45. The patient remains on norepinephrine at 5 mcg/m, propofol at 30 mcg/kg/m, and saline at 100 mL an hour. The patient's also getting vital high protein at 69 mL an hour, which is goal. White count is 11, hemoglobin 8.3, hematocrit 25.3, and platelet count 109,000. Sodium 134, potassium 3.2, chlorides 103, CO2 19, BUN 56, and creatinine 3.35. Microbiologic sampling as as far negative. Chest x-ray shows extensive infiltrate, and left midlung and left lower lobe area. The patient continues on Zosyn and Levaquin. Yesterday, we attempted a daily interruption of sedation, and the patient did not do well. We will attempt that again today. Progress note dated 03/04/2023. 62-year-old male, seen again in room 264. The patient remains on the mechanical ventilator. He is status post brief cardiopulmonary arrest, with cardiop ulmonary resuscitation, and return of spontaneous circulation. The cardiac arrest was brief, lasting maybe 5-7 minutes. Current ventilator settings include the volume assist control, rate 22, tidal volume 500, FiO2 50%, and PEEP of 5. Blood gases show pO2 of 73, pCO2 31, and pH 7.51. The patient continues on propofol at 35 mcg/kg/m, norepinephrine at 4 mcg/m, and saline at KVO. The patient is getting vital high protein at 69 mL an hour, which is goal. His Legionella urinary antigen was positive. His chest x-ray continues to show a left-sided infiltrate. He did have hemodialysis yesterday, and 1 L of fluid was removed. White count 10.4, hemoglobin 8.6, hematocrit 26.8, and platelet count 82,000. Sodium 133, potassium 3.8, chlorides 102, CO2 21, BUN 52, creatinine 2.55. Chest x-ray shows a patchy infiltrate, involving the left midlung and left lower lobe area. The chest x-ray in my opinion is essentially unchanged. On 03/05/2023, I'm seeing the patient in the intensive care unit. The patient is currently intubated on a mechanical ventilator. The patient is post cardiac arrest that occurred on 02/28/2023. The patient presented to us with an acute kidney injury on top of chronic kidney failure. He was profoundly acidotic at the time of admission and the serum bicarb was down to 10. No significant hyperkalemia. He was admitted to the medical/he had a cardiac arrest. His down time was estimated to be more than 5 minutes. He received at least 5 minutes of CPR and there was return of spontaneous circulation. His echocardiogram shows severely and. Impaired LV function with an EF of around 20-25%. Since then, the patient has not had any major cardiac events. His cardiac rhythm is sinus. He is currently undergoing hemodialysis for end-stage renal disease. Note that the patient has sustained an acute kidney injury on top of his chronic kidney failure. His baseline GFR was 18 and the patient has chronic stage IV kidney disease. He has a hemodialysis catheter in his right femoral. 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 Meanwhile, he remains intubated on a mechanical ventilator. His calm and comfortable on propofol which is running at 20 mcg/kg/m. He is receiving daily sedation holidays. He was not felt to be neurologically awake enough to be extubated. His most recent CAT scan of the brain was done on 03/04/2023 and the patient was not found to have an acute abnormalities. The patient had mild to moderate generalized brain atrophy. No edema. No stroke. Neurology is on the case and the patient was given an EGD today and there is also still pending for now. Hemodynamically, the patient is requiring low-dose norepinephrine at 0.04 mcg/kg/m. He is afebrile. His most recent chest x-ray that was done today showed extensive consolidation of the left lower lobe and the lingula. Legionella urine antigen was positive and this is likely a Legionella pneumonia. This was present on earlier chest x-rays that dates back to 02/28/2023. It is likely that the patient presented to us with a pneumonia. Possibility of a aspiration pneumonia at a time of his cardiac arrest cannot be completely ruled out. His sputum is negative. Blood cultures negative. Antibiotic coverage is a combination of Zosyn and Levaquin. He is diabetic on Levemir insulin 20 units and is also taking NovoLog 7 units 3 times a day. Enteral feeding for nutritional support and the patient is currently on vital HP at at the rate of 69 mL an hour. He is afebrile. No other significant events overnight. His current ventilator s ettings include an assist-control mode rate of 24, tidal volume of 500, FiO2 of 50% with a PEEP of 5. The blood gas shows a pH of 7.46 with a pCO2 of 28 and pO2 of 86. On 03/06/2023, the patient is opening his eyes spontaneously. He is tracking. Is not following any commands. He is currently on 15 mcg/kg/m of propofol and when a positive further weaning this propofol. His overall respiratory status is stable. Is currently on assist control mode with a rate of 16, tidal volume of 500, FiO2 of 40% with a PEEP of 5. As mentioned earlier, he has a Legionella left lower lobe pneumonia and he continues to have persistent consolidation of the left lower lobe. Blood gas from today shows a pH of 7.46 with a pCO2 of 33 and pO2 of 67 and this was done on the above-mentioned ventilator settings. Meanwhile, the patient is still requiring low-dose pressors. Currently on norepinephrine running at 0.03 mcg/kg/m. He is undergoing periodic dialysis as the patient sustained an acute kidney injury on top of his chronic kidney failure. His last session of hemodialysis was yesterday and the patient was also infiltrated for a total of 0.5 L. His urine output as such is minimal at this point. Urine is a 78 with a creatinine of 2.8 and a sodium level is 132. Serum bicarbs of 19. White cell cause of 14.4 with a hemoglobin of 9.1 and a platelet count of 110. Neurologically, as stated, the patient had a negative CAT scan of the brain. EEG showed slowing moderate to severe degree of slowing, generalized dysfunction, no evidence of any seizure activity. Neurology is on the case. He remains on Levaquin. Fecal management system in Place and the patient is still stooling, liquid stool and stool for C. diff has been negative. Blood cultures have been negative. He remains on Levemir insulin 20 units along with NovoLog 7 units [id number] plus a sliding scale coverage. IV fluids are currently at KVO. As stated, he has severe impairment of LV function with an fraction of 20-25%. Cardiac rhythm remained sinus. on 03/07/2023, I'm seeing the patient for a follow-up. The patient remains intubated on mechanical ventilator. We will gradually weaning him off the s edation. He was taken off propofol as of 5 AM this morning. He is currently on no sedation. We have noticed ongoing but slow improvement in his level of alertness and I was told that he was intermittently following commands. This is quite encouraging . Furthermore, the patient remains on a mechanical ventilator. Today, his assist control of 16, tidal volume of 450, FiO2 of 40% and a PEEP of 5. Blood gas shows a pH of 7.44 with a pCO2 of 31 and pO2 of 94. His chest x-ray still showing consolidation of the left lower lobe related to his Legionella pneumonia. No significant respiratory secretions. We'll check his weaning parameters after he completes his hemodialysis which is currently in progress and he has another 2 hours to go.. The patient is producing some urine output and his urine output is in order of 10-50 mL an hour. His BUN is 104 and a creatinine 3.6 which is elevated compared to yesterday and the patient is still renal failure. Sodium level is at 133 and a bicarb level is at 17 is currently on IV fluids at [facility]. The white cell cause at 17.5, hemoglobin is at 8.7 and a platelet count is 132. Is on no pressors. He is hemodynamically stable. He is afebrile. He is on enteral feeding which was placed on hold in anticipation for possible extubation today. Despite his improved level of alertness, he remains profoundly weak in his upper extremities. He is doing minimal movement compared to yesterday using his arms. He doesn't reach. He tracks. He occasionally follows simple commands. His blood sugars under adequate control on Levemir insulin 20 units and is also taking 7 units of NovoLog with meals. He remains on Levaquin. No other significant events overnight. 03/08/2023, I'm seeing the patient for a follow-up. The patient remained off sedation. On today's evaluation, the patient is moving his arms, is able to wiggle his toes, is able to follow commands. He is opening his eyes spontaneously. Is tracking. Is off sedation. He was able to do some CPAP trials yesterday and overnight he was Assist-Control Mode of Mechanical Ventilation. Earlier This Morning, He Was a Tidal Volume of 450, FiO2 Was at 40% with a PEEP of 5 and a Respiratory Rate of 16. His Weaning Parameters Are Adequate. Is Unable to Give Me a Good NIF and VC , however his rapid shallow breathing index was less than 50. The patient accordingly was switched to a pressure support of 5 and a PEEP of 5 is able to generate tidal volumes of about 400 and his respiratory rate is currently at 20. No significant orotracheal secretions. He has an acceptable gag upon suctioning. He continues to have a left lower lobe consolidation regarding his left lung Legionella pneumonia. The patient was psychotic 60 with a hemoglobin of 8.6 and a platelet count of 147. Blood gas from today showed a pH of 7.44 with a pCO2 of 35 and pO2 of 103. He underwent hemodialysis yesterday and his creatinine is down to 3.1 with a BUN of 78 and sodium levels of 132 and a potassium level is at 4.4. Doppler of the upper extremity was done and it showed no evidence of any DVT in the left upper extremity. There was superficial venous thromboses in the cephalic vein. The patient is currently receiving enteral feeding for nutritional support. This was placed on hold in anticipation for possible extubation. Meanwhile, the patient has developed some diarrhea. He has a fecal management system in Place. 03/09/2023, the patient remains extubated. Noted the patient was weaned off the mechanical ventilator and the patient was extubated yesterday and currently is on room air oxygen. He is awake and alert and communicating. He is profoundly weak. Barely is able to wiggle his toes and he is unable to raise his arms against gravity. There is a very weak Handgrip. At the same time, the patient is not having any signs of respiratory distress. He has an NG tube in place. He is receiving enteral feeding for nutritional support and the patient is currently on Glucerna running at the rate of 47. He's an hour. His chest x-ray shows a persistent consolidation of left lung base related to Legionella pneumonia. Urine output is in order of 60 mL an hour and the patient is currently undergoing dialysis with a goal of ultrafiltration of 2.8 L. No agitation. BUN is at 96 with a creatinine of 3.8 and a sodium level is at 136. The white cell count of 15 with a hemoglobin of 8.6 and a platelet count of 188. He has a liquidy stool and he had no C diff On 03/10/2023, the patient is resting comfortably. Breathing is nonlabored and the patient is on 4 L of oxygen by nasal cannula with a pulse ox of 97%. He has a IV daily for enteral feeding for nutritional support. His chest x-ray from today is showing significant volume loss in the left lung. Suspect mucus plugging as the patient has of optimal ability to do adequate pulmonary toileting. Based on that, the plan was to do a bedside bronchoscopy for therapeutic airway suctioning. . It is possible also that there may be some limited pleural effusion and left lung. The patient was echoes at 12.3, hemoglobin is 8.6, platelet count is 175, BUN is at 75 with a creatinine of 3.06. Sodium is at 133. Last hemodialysis session was yesterday. Note that the patient had a Legionella pneumonia in the left lower lobe and the patient continued to have a persistent consolidation of the left lung base. He remains on Levaquin. She remains on Eraxis. Infectious diseases on the case. He is on no pressors at this point in time. On Levemir insulin, 15 units at bedtime and 10 units in the morning. Is also on NovoLog siding scale coverage. He remains on metoprolol 25 mg 3 times a day.. Last hemodialysis session was yesterday and the patient is producing adequate amount of urine output for the time being. Objective - Vital Signs Vital signs: Vital Signs Temp 98.4 F 03/10/23 08:00 Pulse 101 H 03/10/23 08:00 Resp 19 03/10/23 08:00 BP 115/66 03/10/23 08:00 Pulse Ox 97 03/10/23 08:00 FiO2 40 03/08/23 10:50 Intake & Output 03/09/23 03/10/23 03/10/23 18:59 06:59 18:59 Intake Total 1406 366 299 Output Total 3030 935 80 Balance -3924 -569 219 Weight 83.7 kg 83.2 kg Intake: IV 230 Anidulafungin 100 mg In 100 Sodium Chloride 0.9% 100 ml @ 84 mls/hr IVPB DAILY [facility] Rx#:[id number] Invasive Line 1 30 Levofloxacin 500Mg-D5w 100 Pmx 500 mg In Dextrose/ Water 1 100ml.bag @ 100 mls/hr IVPB Q48H [facility] Rx#: [id number] Oral 200 200 Tube Feeding 586 276 69 Hemodialysis 300 Other 90 90 30 Output: Urine 730 935 80 Hemodialysis 2300 Other: Voiding Method Indwelling Catheter Indwelling Catheter # Bowel Movements 100 0 0 ABP, PAP, CO, CI - Last Documented Arterial Blood Pressure 72/72 - Exam No acute distress, awake NG tube. Calm and comfortable. The patient is following simple commands. His profoundly weak. Breathing is nonlabored and he remains extubated on room liters of oxygen by nasal cannula. Head exam was generally normal. There was no scleral icterus or corneal arcus. Mucous membranes were moist. HEENT examination is grossly unremarkable. Neck supple. Full range of motion. No adenopathy thyromegaly or neck vein distention. Cardiovascular examination reveals regular rhythm rate. S1-S2 normal. No S3 or S4. No discernible murmur noted. Heart sounds are distant. Lungs reveal bilateral rhonchi. No wheezes or crackles. Breath sounds are diminished on the left compared to the right Abdomen soft bowel sounds are heard. No masses or tenderness. The patient has a dialysis catheter, dialysis catheter in his right femoral vein. Extremities are intact. No cyanosis clubbing or edema. Skin is without rash or lesion. Neurologic examination is awake, communicating, following simple commands, profoundly weak especially in his lower extremity, motor power is 1 out of 5 in both upper and lower extremities. - Labs CBC & Chem 7: 03/10/23 05:30 03/10/23 05:25 Labs: Abnormal Lab Results - Last 24 Hours (Table) 03/09/23 03/09/23 03/10/23 Range/Units : 17:30 01:34 WBC (3.8-10.6) k/uL RBC (4.30-5.90) m/uL Hgb (13.0-17.5) gm/dL Hct (39.0-53.0) % RDW (11.5-15.5) % Neutrophils # (1.3-7.7) k/uL Lymphocytes # (1.0-4.8) k/uL Sodium (137-145) mmol/L BUN (9-20) mg/dL Creatinine (0.66-1.25) mg/dL Glucose (74-99) mg/dL POC Glucose (mg/dL) 56 L 182 H 68 L (70-110) mg/dL Calcium (8.4-10.2) mg/dL 03/10/23 03/10/23 03/10/23 Range/Units 02:11 05:25 05:30 WBC 12.3 H (3.8-10.6) k/uL RBC 3.10 L (4.30-5.90) m/uL Hgb 8.6 L (13.0-17.5) gm/dL Hct 27.0 L (39.0-53.0) % RDW 16.0 H (11.5-15.5) % Neutrophils # 10.9 H (1.3-7.7) k/uL Lymphocytes # 0.6 L (1.0-4.8) k/uL Sodium 133 L (137-145) mmol/L BUN 75 H (9-20) mg/dL Creatinine 3.06 H (0.66-1.25) mg/dL Glucose 110 H (74-99) mg/dL POC Glucose (mg/dL) 136 H (70-110) mg/dL Calcium 7.9 L (8.4-10.2) mg/dL 03/10/23 03/10/23 Range/Units 06:12 07:55 WBC (3.8-10.6) k/uL RBC (4.30-5.90) m/uL Hgb (13.0-17.5) gm/dL Hct (39.0-53.0) % RDW (11.5-15.5) % Neutrophils # (1.3-7.7) k/uL Lymphocytes # (1.0-4.8) k/uL Sodium (137-145) mmol/L BUN (9-20) mg/dL Creatinine (0.66-1.25) mg/dL Glucose (74-99) mg/dL POC Glucose (mg/dL) 119 H 145 H (70-110) mg/dL Calcium (8.4-10.2) mg/dL Assessment and Plan Plan: Witnessed PEA cardiac arrest with a limited down time of less than 5 minutes. The cardiac arrest occurred on 02/28/2023. Patient remains intubated on mechanical ventilator. CAT scan of the brain that was done on 03/04/2023 showed no acute abnormalities. Anoxic encephalopathy with slow improvement of currently awake and alert, generalized motor weakness in all 4 extremities noted. Acute hypoxemic respiratory failure, requiring intubation and mechanical ventilation. Extubated on 03/08/2020. The patient was on room air oxygen. Subsequently, the chest x-ray from today shows volume loss and opacification of the left lung. Suspect mucus plugging and atelectasis. The patient is going to undergo a bedside bronchoscopy today. Left lower lobe community-acquired pneumonia and sepsis, secondary to Legionella pneumophila. Severe cardiomyopathy with an ejection fraction of 20-25% Hypotension, probably due to a combination of septic and cardiogenic as the patient has impaired LV function. The patient is currently off norepinephrine Metabolic anion gap acidosis, secondary to lactic acidosis and sepsis, recovered Chronic stage IV kidney disease Acute on chronic kidney disease, currently receiving hemodialysis. Undergoing periodic dialysis and the last dialysis session was yesterday. No Acute rhabdomyolysis, with mildly elevated CPK. Elevated troponins, likely related to supply/demand mismatch. Anemia of chronic disease, hemoglobin lower than baseline. Diabetes mellitus, insulin-dependent. Hyperlipidemia Diarrhea, patient has a fecal management system in Place. Stool for C. diff has been negative Superficial venous thrombosis of the cephalic veins based on ultrasound and the patient does have some edema in the left upper extremity. Diarrhea, improving/thickening and the patient had a negative C. diff. Chronic draining wounds in his feet bilaterally, largest the sole of the left foot with minimal amount of purulent drainage. No surrounding cellulitis. 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 Plan Is currently on 4 L of oxygen by nasal cannula. We'll do a bedside bronchoscopy for therapy vigorous suctioning and repeat chest x-ray following the [facility] hoscopy to assess left lung reexpansion. Aggressive pulmonary toileting and chest PT Last hemodialysis session was yesterday with a goal of 2.8 L of ultrafiltration Continue Levaquin Check stool for C. diff colitis was negative, diarrhea has subsided off pressors Patient is able to swallow. Nevertheless, his ability to meet caloric requirements are poor. We'll continue to use the enteral feeding for now Continue Levemir insulin Continue rest of the supportive care Left upper extremity superficial vein thrombosis the patient will need a permacath at the later stage, UO is improved at 75 mL an hour Wound services to consult on the chronic lower extremity/feet ulceration obtain wound cultures Condition is critical. The family will be updated on his condition. We'll continue to follow make further recommendations based on his progress. His evaluation was done in more than 30 minutes. Time with Patient: Greater than 30
--- NOTE | 2023-03-10 10:02 | P.PN ---
Subjective Progress Note Date: 03/08/23 03/08/2023: Patient was seen for a follow-up. Patient was extubated at 2:40 PM today. Patient is doing much better. He states "I'm okay". "I just about ". Patient then says some random statements like "I went to [employer]". He believes he is in [place]. He states that he is scheduled for kidney transplant. 03/07/2023: Patient was seen for a follow-up. Patient is laying in the bed, intubated, off sedation. Please refer to examination below. 03/06/2023: Patient was seen for a follow-up. Patient is laying in the bed, intubated, on propofol 20 mcg/kg per minute. Patient is off norepinephrine. Please refer to examination below. 03/05/2023: Patient initially seen by Dr. Francisco Lacy. Please refer to his note for details. Patient is a 62-year-old male with pneumonia and cardiac arrest for less than [address] head did not reveal any acute process. Patient was seen for follow-up. Patient currently on norepinephrine in 0.02 mcg/kg per minute with a rate of 5.32 mL per hour. Also on propofol 50 g/kg per minute. Patient is laying in the bed. He did open his eyes to calling his name. Please refer to examination below. No obvious seizure-like activity noted. Objective - Vital Signs Vital signs: Vital Signs Temp 97.2 F L 03/08/23 16:00 Pulse 90 03/08/23 19:00 Resp 14 03/08/23 19:00 BP 124/76 03/08/23 19:00 Pulse Ox 96 03/08/23 19:00 FiO2 40 03/08/23 10:50 Intake & Output 03/08/23 03/08/23 03/09/23 06:59 18:59 06:59 Intake Total 831 110 10 Output Total 1195 2805 350 Balance -418 -0410 -590 Weight 83.7 kg Intake: IV 130 110 10 KVO 130 110 10 Tube Feeding 611 Other 90 Output: Urine 495 705 150 Stool 700 2100 200 Other: Voiding Method Indwelling Catheter Indwelling Catheter ABP, PAP, CO, CI - Last Documented Arterial Blood Pressure 72/72 - Exam General: Lying in bed and does not appear in acute distress. HENT: Supple neck. Respiratory: On nasal cannula. Appears comfortable. Neuro: Is awake and alert, but slow mentation, prolonged latency time to answer questions. Speech and language functions appears normal. Pupils are round, equal and reactive to light. Extraocular muscles appears intact. No facial weakness. 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 He is wiggling his feet. Reflexes: 1+ throughout. No seizure like activity noted. Both feet are bandaged. - Labs CBC & Chem 7: 03/10/23 05:30 03/10/23 05:25 Labs: Abnormal Lab Results - Last 24 Hours (Table) 03/08/23 03/08/23 03/08/23 Range/Units 00:35 03:46 03:46 WBC 16.0 H (3.8-10.6) k/uL RBC 3.10 L (4.30-5.90) m/uL Hgb 8.6 L (13.0-17.5) gm/dL Hct 26.6 L (39.0-53.0) % Plt Count 147 L (150-450) k/uL Neutrophils # 14.3 H (1.3-7.7) k/uL Lymphocytes # 0.7 L (1.0-4.8) k/uL ABG Total CO2 (19-24) mmol/L ABG O2 Saturation (94-97) % Sodium (137-145) mmol/L Carbon Dioxide (22-30) mmol/L BUN (9-20) mg/dL Creatinine (0.66-1.25) mg/dL Glucose (74-99) mg/dL POC Glucose (mg/dL) 114 H (70-110) mg/dL Calcium (8.4-10.2) mg/dL Alkaline Phosphatase (38-126) U/L C-Reactive Protein (<1.0) mg/dL Total Protein (6.3-8.2) g/dL Albumin (3.5-5.0) g/dL Procalcitonin 12.50 H (0.02-0.09) ng/mL 03/08/23 03/08/23 03/08/23 Range/Units 03:46 05:44 05:55 WBC (3.8-10.6) k/uL RBC (4.30-5.90) m/uL Hgb (13.0-17.5) gm/dL Hct (39.0-53.0) % Plt Count (150-450) k/uL Neutrophils # (1.3-7.7) k/uL Lymphocytes # (1.0-4.8) k/uL ABG Total CO2 25 H (19-24) mmol/L ABG O2 Saturation 98.1 H (94-97) % Sodium 132 L (137-145) mmol/L Carbon Dioxide 21 L (22-30) mmol/L BUN 78 H (9-20) mg/dL Creatinine 3.18 H (0.66-1.25) mg/dL Glucose 134 H (74-99) mg/dL POC Glucose (mg/dL) 164 H (70-110) mg/dL Calcium 7.8 L (8.4-10.2) mg/dL Alkaline Phosphatase 231 H (38-126) U/L C-Reactive Protein 7.5 H (<1.0) mg/dL Total Protein 5.0 L (6.3-8.2) g/dL Albumin 2.2 L (3.5-5.0) g/dL Procalcitonin (0.02-0.09) ng/mL 03/08/23 03/08/23 03/08/23 Range/Units 06:52 10:46 18:41 WBC (3.8-10.6) k/uL RBC (4.30-5.90) m/uL Hgb (13.0-17.5) gm/dL Hct (39.0-53.0) % Plt Count (150-450) k/uL Neutrophils # (1.3-7.7) k/uL Lymphocytes # (1.0-4.8) k/uL ABG Total CO2 25 H (19-24) mmol/L ABG O2 Saturation 97.5 H (94-97) % Sodium (137-145) mmol/L Carbon Dioxide (22-30) mmol/L BUN (9-20) mg/dL Creatinine (0.66-1.25) mg/dL Glucose (74-99) mg/dL POC Glucose (mg/dL) 166 H 69 L (70-110) mg/dL Calcium (8.4-10.2) mg/dL Alkaline Phosphatase (38-126) U/L C-Reactive Protein (<1.0) mg/dL Total Protein (6.3-8.2) g/dL Albumin (3.5-5.0) g/dL Procalcitonin (0.02-0.09) ng/mL 03/08/23 Range/Units 19:00 WBC (3.8-10.6) k/uL RBC (4.30-5.90) m/uL Hgb (13.0-17.5) gm/dL Hct (39.0-53.0) % Plt Count (150-450) k/uL Neutrophils # (1.3-7.7) k/uL Lymphocytes # (1.0-4.8) k/uL ABG Total CO2 (19-24) mmol/L ABG O2 Saturation (94-97) % Sodium (137-145) mmol/L Carbon Dioxide (22-30) mmol/L BUN (9-20) mg/dL Creatinine (0.66-1.25) mg/dL Glucose (74-99) mg/dL POC Glucose (mg/dL) 120 H (70-110) mg/dL Calcium (8.4-10.2) mg/dL Alkaline Phosphatase (38-126) U/L C-Reactive Protein (<1.0) mg/dL Total Protein (6.3-8.2) g/dL Albumin (3.5-5.0) g/dL Procalcitonin (0.02-0.09) ng/mL Assessment and Plan Assessment: This is a 63-year-old gentleman who presented to the emergency department on 02/28/2022 since was found on the floor by his father and he had generalized weakness. Patient while he was in observation, had witnessed PEA cardiac arrest possibly about less than 5 minutes. He has Legionella pneumonia. Altered mental status due to septic encephalopathy from pneumonia and metabolic encephalopathy in which had acute on chronic renal failure. Status post cardiopulmonary arrest with downtime < 5 minutes. Patient is status post extubation. Patient is following directions, much improved. Community acquire pneumonia/sepsis due to Legionalla Pneumonia Acute on chronic renal faliure and getting dialysis during this admission--trending down Acute hypoxemic respiratory failure requiring intubation DM Acute rhabdomyolysis--likely since was found down, now normal. Plan: * Patient is status post extubation. He is doing much better. Patient is getting more oriented and examination is improving. * CT head revealed no acute intracranial abnormality. Mild to moderate generalized brain atrophy and chronic microvascular ischemic changes. I personally reviewed CT head, agree with the findings. There is slight prominence of the ventricles, slightly more than amount of cortical atrophy. Clinical correlation recommended for possible NPH. There is evidence of old lacunar stroke left thalamus. * EEG was performed, which was abnormal due to background slowing of moderate to severe degree. This is suggestive of generalized cerebral dysfunction, as can be seen with toxic metabolic encephalopathy or related to diffuse structural brain abnormality or medication effect. Clinical correlation is recommended. No epileptiform activity was seen. * TSH 1.48, ammonia level < 9, Vitamin B12 1213, folate 5.50 and repeat CK level 63. All tests normal, but folate borderline, we'll start folate 1 mg daily. * I.D. is on board. * Will defer the rest of medical management to the primary team and other specialist. * Discussed with patient's nurse.
--- NOTE | 2023-03-10 10:12 | P.PCN ---
Date of Procedure: 03/10/23 Preoperative Diagnosis: Left lung atelectasis Postoperative Diagnosis: Left mainstem mucous plug Procedure(s) Performed: Flexible bronchoscopy and therapeutic airway suctioning and removal of mucous plugs endobronchial lavage of the left lower lobe Anesthesia: YOBANY Surgeon: Royer Dos Santos Estimated Blood Loss (ml): 0 Pathology: other Condition: critical Disposition: ICU Operative Findings: The patient is currently in the intensive care unit. The repeat chest x-ray from today shows some volume loss and atelectasis of the left lung. The patient is currently on 4 L of oxygen by nasal cannula. This procedure was done under conscious sedation in the intensive care unit. The patient was given a total of 2 mg of IV Versed After achieving adequate sedation, the patient was placed on 100% on rebreather facemask. The flexible bronchoscope was introduced through the left nostril. The bronchoscope was easily passed through the posterior pharynx and later on into the larynx. A total of 2 mL of 1% lidocaine was applied today vocal cord and following the bronchoscope was advanced to the upper trachea. Trachea was within normal limits. A summation the right side included the right mainstem bronchus, right upper lobe bronchus and right middle lobe and right lower lobe bronchus and the various 10 segments on the right. Examination of the left side revealed mucous plug in the left lower lobe and the left mainstem bronchus. Had a vigorous suctioning was done. Airway patency was achieved. The left upper lobe bronchus and left lobe bronchus and the various episodes of the left were also visualized. There was some erythema and mucosal inflammatory changes. The bronchial alveolar lavage was done and a total of 30 mL of fluid was aspirated from the left lower lobe. The flexible bronchoscope was removed and the patient was placed on BiPAP for a brief period of time. The tube feeds will be kept on hold for the next 12 hours. Repeat chest x-ray in the morning. We'll continue to follow. The BiPAP will be initiated a pressure of 10/5 with an FiO2 of 40%.
--- NOTE | 2023-03-10 11:17 | P.PN ---
Subjective Progress Note Date: 03/10/23 Principal diagnosis: Sepsis and Legionella pneumonia Patient is a 62-year-old male with a past medical history significant for diabetes mellitus hypertension renal insufficiency patient was brought into the ER concerning for weakness and did have some respiratory symptoms patient did have a fever and worsening respiratory status requiring intubation and admission to the ICU the patient urine for digital antigen came back positive evening of 03/01/2023. On today's evaluation that is 03/10/2023 patient remains to be afebrile, the patient is hemodynamically stable not requiring any pressor support, patient did have slight worsening of respiratory status and is on a BiPAP patient is currently lethargic and unable to provide any history no vomiting has been reported dialysis catheter has been discontinued Patient white count is down to 12.3 creatinine is 3.06, blood and sputum cultures so far negative, urine for Legionella antigen is positive, stool for C. diff is negative Objective - Vital Signs Vital signs: Vital Signs Temp 98.4 F 03/10/23 08:00 Pulse 83 03/10/23 10:00 Resp 14 03/10/23 10:00 BP 106/65 03/10/23 10:00 Pulse Ox 96 03/10/23 10:00 FiO2 50 03/10/23 10:52 Intake & Output 03/09/23 03/10/23 03/10/23 18:59 06:59 18:59 Intake Total 1406 366 346 Output Total 3030 935 330 Balance -1024 569 16 Weight 83.7 kg 83.2 kg Intake: IV 230 100 Anidulafungin 100 mg In 100 100 Sodium Chloride 0.9% 100 ml @ 84 mls/hr IVPB DAILY [facility] Rx#:[id number] Invasive Line 1 30 Levofloxacin 500Mg-D5w 100 Pmx 500 mg In Dextrose/ Water 1 100ml.bag @ 100 mls/hr IVPB Q48H [facility] Rx#: [id number] Oral 200 200 Tube Feeding 586 276 46 Hemodialysis 300 Other 90 90 0 Output: Urine 730 935 330 Hemodialysis 2300 Other: Voiding Method Indwelling Catheter Indwelling Catheter Indwelling Catheter # Bowel Movements 100 0 0 ABP, PAP, CO, CI - Last Documented Arterial Blood Pressure 72/72 - Exam GENERAL DESCRIPTION: Middle-aged male lying in bed in no distress RESPIRATORY SYSTEM: Unlabored breathing , decreased breath sound at the base HEART: S1 S2 regular rate and rhythm , ABDOMEN: Soft , no tenderness EXTREMITIES: No edema feet - Labs CBC & Chem 7: 03/10/23 05:30 03/10/23 05:25 Labs: Abnormal Lab Results - Last 24 Hours (Table) 03/09/23 03/09/23 03/10/23 Range/Units 17: 17:30 01:34 WBC (3.8-10.6) k/uL RBC (4.30-5.90) m/uL Hgb (13.0-17.5) gm/dL Hct (39.0-53.0) % RDW (11.5-15.5) % Neutrophils # (1.3-7.7) k/uL Lymphocytes # (1.0-4.8) k/uL Sodium (137-145) mmol/L BUN (9-20) mg/dL Creatinine (0.66-1.25) mg/dL Glucose (74-99) mg/dL POC Glucose (mg/dL) 56 L 182 H 68 L (70-110) mg/dL Calcium (8.4-10.2) mg/dL 03/10/23 03/10/23 03/10/23 Range/Units 02:11 05:25 05:30 WBC 12.3 H (3.8-10.6) k/uL RBC 3.10 L (4.30-5.90) m/uL Hgb 8.6 L (13.0-17.5) gm/dL Hct 27.0 L (39.0-53.0) % RDW 16.0 H (11.5-15.5) % Neutrophils # 10.9 H (1.3-7.7) k/uL Lymphocytes # 0.6 L (1.0-4.8) k/uL Sodium 133 L (137-145) mmol/L BUN 75 H (9-20) mg/dL Creatinine 3.06 H (0.66-1.25) mg/dL Glucose 110 H (74-99) mg/dL POC Glucose (mg/dL) 136 H (70-110) mg/dL Calcium 7.9 L (8.4-10.2) mg/dL 03/10/23 03/10/23 Range/Units 06:12 07:55 WBC (3.8-10.6) k/uL RBC (4.30-5.90) m/uL Hgb (13.0-17.5) gm/dL Hct (39.0-53.0) % RDW (11.5-15.5) % Neutrophils # (1.3-7.7) k/uL Lymphocytes # (1.0-4.8) k/uL Sodium (137-145) mmol/L BUN (9-20) mg/dL Creatinine (0.66-1.25) mg/dL Glucose (74-99) mg/dL POC Glucose (mg/dL) 119 H 145 H (70-110) mg/dL Calcium (8.4-10.2) mg/dL Assessment and Plan (1) Legionella pneumonia Current Visit: Yes Status: Acute Code(s): A48.1 - LEGIONNAIRES' DISEASE SNOMED Code(s): 859385508 (2) Sepsis Current Visit: Yes Status: Acute Code(s): A41.9 - SEPSIS, UNSPECIFIED ORGANISM SNOMED Code(s): 69955857 Plan: 1patient presented to hospital with sepsis in this patient with a fever tachycardia hypotension source is likely left lower lobe pneumonia in this patient with weakness lethargy and decreased level of responsiveness and the question of community-acquired versus aspiration pneumonia 2-urine for Legionella antigen is positive, sputum cultures are currently negative for any resistant pathogen , patient to continue with the current treatment of Levaquin 3- leukocytosis possible oropharyngeal candidiasis, white count is trending down with eraxis, down to 12.3 today, we will continue the patient on Eraxis and monitor clinical course closely Dictation was produced using [employer] dictation software. please excuse any grammatical, word or spelling errors. Time with Patient: Less than 30
[2023-03-10 11:19] LABS: Glucose,Whole Blood 142 mg/dL (70-110)
--- NOTE | 2023-03-10 11:50 | P.PN ---
Subjective Progress Note Date: 03/10/23 The patient is a 62-year-old male who presented to the hospital after mechanical fall. The patient was on the observation unit when he had a PEA arrest with approximate downtime of 5 minutes. Patient was initiated on low-dose beta blockers and has been weaning off of his midodrine. He was successfully ex tubated and his neurological status has significantly improved. Chest x-ray this morning shows large left pleural effusion. He underwent bronchoscopy for removal of left mainstem mucous plug. The patient is resting comfortably in bed this morning. He denies any pain or discomfort. GENERAL: Ill-appearing, well-nourished male. Disoriented to place and time. NECK: Supple without JVD or thyromegaly. LUNGS: Breath sounds diminished to auscultation bilaterally. Respiration equal and unlabored. Bilateral rhonchi HEART: Regular rate and rhythm without murmurs, rubs or gallops. S1 and S2 heard. EXTREMITIES: Normal range of motion, no edema. No clubbing or cyanosis. Palpable peripheral pulses, weak. Ulcers on bilateral great toes. TELEMETRY: Sinus tachycardia with heart rates in the 70s to 80s. LABS: WBC 12.3, hemoglobin 8.6, hematocrit 27.0, platelet 175, sodium 133, BUN 75, creatinine 3.06, potassium 4.8 IMPRESSION: Status post cardiac arrest, PEA Acute hypoxic respiratory failure Acute renal failure, on dialysis Cardiomyopathy with severe LV dysfunction Cardiogenic shock History of diabetes PLAN: Continue supportive treatment Aggressive pulmonary hygiene Continue Midodrine prior to dialysis only No plans for coronary angiogram at this time due to renal disease Further recommendations to be based upon clinical course I am dictating on behalf of Dr Los Bond's history/physical and assessment/plan. Objective - Vital Signs Vital signs: Vital Signs Temp 98.4 F 03/10/23 08:00 Pulse 77 03/10/23 11:00 Resp 12 03/10/23 11:00 BP 90/54 03/10/23 11:00 Pulse Ox 96 03/10/23 11:00 FiO2 50 03/10/23 10:52 Intake & Output 03/09/23 03/10/23 03/10/23 18:59 06:59 18:59 Intake Total 1406 366 346 Output Total 3030 935 405 Balance -1624 -569 -59 Weight 83.7 kg 83.2 kg Intake: IV 230 100 Anidulafungin 100 mg In 100 100 Sodium Chloride 0.9% 100 ml @ 84 mls/hr IVPB DAILY [facility] Rx#:[id number] Invasive Line 1 30 Levofloxacin 500Mg-D5w 100 Pmx 500 mg In Dextrose/ Water 1 100ml.bag @ 100 mls/hr IVPB Q48H [facility] Rx#: [id number] Oral 200 200 Tube Feeding 586 276 46 Hemodialysis 300 Other 90 90 0 Output: Urine 730 935 405 Hemodialysis 2300 Other: Voiding Method Indwelling Catheter Indwelling Catheter Indwelling Catheter # Bowel Movements 100 0 0 ABP, PAP, CO, CI - Last Documented Arterial Blood Pressure 72/72 - Labs CBC & Chem 7: 03/10/23 05:30 03/10/23 05:25 Labs: Abnormal Lab Results - Last 24 Hours (Table) 03/09/23 03/09/23 03/10/23 Range/Units 17:23 17:30 01:34 WBC (3.8-10.6) k/uL RBC (4.30-5.90) m/uL Hgb (13.0-17.5) gm/dL Hct (39.0-53.0) % RDW (11.5-15.5) % Neutrophils # (1.3-7.7) k/uL Lymphocytes # (1.0-4.8) k/uL Sodium (137-145) mmol/L BUN (9-20) mg/dL Creatinine (0.66-1.25) mg/dL Glucose (74-99) mg/dL POC Glucose (mg/dL) 56 L 182 H 68 L (70-110) mg/dL Calcium (8.4-10.2) mg/dL 03/10/23 03/10/23 03/10/23 Range/Units 02:11 05:25 05:30 WBC 12.3 H (3.8-10.6) k/uL RBC 3.10 L (4.30-5.90) m/uL Hgb 8.6 L (13.0-17.5) gm/dL Hct 27.0 L (39.0-53.0) % RDW 16.0 H (11.5-15.5) % Neutrophils # 10.9 H (1.3-7.7) k/uL Lymphocytes # 0.6 L (1.0-4.8) k/uL Sodium 133 L (137-145) mmol/L BUN 75 H (9-20) mg/dL Creatinine 3.06 H (0.66-1.25) mg/dL Glucose 110 H (74-99) mg/dL POC Glucose (mg/dL) 136 H (70-110) mg/dL Calcium 7.9 L (8.4-10.2) mg/dL 03/10/23 03/10/23 03/10/23 Range/Units 06:12 07:55 11:17 WBC (3.8-10.6) k/uL RBC (4.30-5.90) m/uL Hgb (13.0-17.5) gm/dL Hct (39.0-53.0) % RDW (11.5-15.5) % Neutrophils # (1.3-7.7) k/uL Lymphocytes # (1.0-4.8) k/uL Sodium (137-145) mmol/L BUN (9-20) mg/dL Creatinine (0.66-1.25) mg/dL Glucose (74-99) mg/dL POC Glucose (mg/dL) 119 H 145 H 142 H (70-110) mg/dL Calcium (8.4-10.2) mg/dL
--- NOTE | 2023-03-10 12:39 | P.PN ---
Subjective Progress Note Date: 03/10/23 Follow-up for acute kidney injury. Was on dialysis, started on 03/11/2023. Last dialysis was yesterday. Catheter was removed. Urine output about 75 ML's an hour. Objective - Vital Signs Vital signs: Vital Signs Temp 98.4 F 03/10/23 08:00 Pulse 77 03/10/23 11:00 Resp 12 03/10/23 11:00 BP 90/54 03/10/23 11:00 Pulse Ox 96 03/10/23 11:00 FiO2 40 03/10/23 11:53 Intake & Output 03/09/23 03/10/23 03/10/23 18:59 06:59 18:59 Intake Total 1406 366 346 Output Total 3030 935 405 Balance -1624 -569 -59 Weight 83.7 kg 83.2 kg Intake: IV 230 100 Anidulafungin 100 mg In 100 100 Sodium Chloride 0.9% 100 ml @ 84 mls/hr IVPB DAILY [facility] Rx#:[id number] Invasive Line 1 30 Levofloxacin 500Mg-D5w 100 Pmx 500 mg In Dextrose/ Water 1 100ml.bag @ 100 mls/hr IVPB Q48H [facility] Rx#: [id number] Oral 200 200 Tube Feeding 586 276 46 Hemodialysis 300 Other 90 90 0 Output: Urine 730 935 405 Hemodialysis 2300 Other: Voiding Method Indwelling Catheter Indwelling Catheter Indwelling Catheter # Bowel Movements 100 0 0 ABP, PAP, CO, CI - Last Documented Arterial Blood Pressure 72/72 - Exam No acute distress S1-S2 heard Decreased breath sounds Lay catheter Edema - Labs CBC & Chem 7: 03/10/23 05:30 03/10/23 05:25 Labs: Abnormal Lab Results - Last 24 Hours (Table) 03/09/23 03/09/23 03/10/23 Range/Units : 17:30 01:34 WBC (3.8-10.6) k/uL RBC (4.30-5.90) m/uL Hgb (13.0-17.5) gm/dL Hct (39.0-53.0) % RDW (11.5-15.5) % Neutrophils # (1.3-7.7) k/uL Lymphocytes # (1.0-4.8) k/uL Sodium (137-145) mmol/L BUN (9-20) mg/dL Creatinine (0.66-1.25) mg/dL Glucose (74-99) mg/dL POC Glucose (mg/dL) 56 L 182 H 68 L (70-110) mg/dL Calcium (8.4-10.2) mg/dL 03/10/23 03/10/23 03/10/23 Range/Units 02:11 05:25 05:30 WBC 12.3 H (3.8-10.6) k/uL RBC 3.10 L (4.30-5.90) m/uL Hgb 8.6 L (13.0-17.5) gm/dL Hct 27.0 L (39.0-53.0) % RDW 16.0 H (11.5-15.5) % Neutrophils # 10.9 H (1.3-7.7) k/uL Lymphocytes # 0.6 L (1.0-4.8) k/uL Sodium 133 L (137-145) mmol/L BUN 75 H (9-20) mg/dL Creatinine 3.06 H (0.66-1.25) mg/dL Glucose 110 H (74-99) mg/dL POC Glucose (mg/dL) 136 H (70-110) mg/dL Calcium 7.9 L (8.4-10.2) mg/dL 03/10/23 03/10/23 03/10/23 Range/Units 06:12 07:55 11:17 WBC (3.8-10.6) k/uL RBC (4.30-5.90) m/uL Hgb (13.0-17.5) gm/dL Hct (39.0-53.0) % RDW (11.5-15.5) % Neutrophils # (1.3-7.7) k/uL Lymphocytes # (1.0-4.8) k/uL Sodium (137-145) mmol/L BUN (9-20) mg/dL Creatinine (0.66-1.25) mg/dL Glucose (74-99) mg/dL POC Glucose (mg/dL) 119 H 145 H 142 H (70-110) mg/dL Calcium (8.4-10.2) mg/dL Assessment and Plan Assessment: #1 Acute kidney injury secondary to hemodynamic ATN. -Baseline creatinine around 3.1-3.4 MG per DL. #2 status post cardiopulmonary arrest #3 diabetic kidney disease stage IIIB. #4 shock on levo fed #5 volume overload #6 hypervolemic hyponatremia Plan: #1 good urine output, catheter was removed yesterday. #2 add Lasix drip at 10 mg an hour. #3 midodrine for hemodynamic support. #4 avoid nephrotoxic agents and hypotensive episodes.
[2023-03-10] MEDS: FUROSEMIDE 100 MG in SODIUM CHLORIDE 0.9% 90 ML IV SCH ×2 (13:00→20:08)
--- NOTE | 2023-03-10 15:38 | XR ---
EXAMINATION TYPE: XR chest 1V DATE OF EXAM: 03/10/2023 COMPARISON: 03/10/2023 HISTORY: Post bronchoscopy TECHNIQUE: Single frontal view of the chest is obtained. FINDINGS: There is an NG tube within the stomach. There is a PICC line entering the left upper extre mity. There is a large opacity in the left lung base obscuring the hemidiaphragm. Is consistent with combin ation of pleural fluid and atelectasis or airspace consolidation. Compared to the prior study there i s been significant improvement in aeration of the upper left lung. The right lung remains clear. There is no pneumothorax. The osseous structures are intact. IMPRESSION: 1. Decrease opacification of the left hemithorax as described above. Significant opacification in the left lung base persists. 2. No pneumothorax. 3. right lung clear. 4. No pulmonary vascular congestion.
--- NOTE | 2023-03-10 15:42 | P.PN ---
Subjective Progress Note Date: 03/10/23 (delayed charting seen at 0930) Patient is a 62-year-old male with chronic kidney disease stage IV/5, hypertension, gout, and diabetes mellitus Type 2 who presented to the ED after being found down by his father. In the ER he underwent an externsive evaluation and was found to have ROSANGELA on CKD with hyperkalemia and significant metabolic acidosis, pneumonia with sepsis, rhabdo, and encephalopathy. He was admitted and was started on Rocephin and Zithromax as well as IV fluids. Nephrology was consulted. Shortly after admission the patient suffered a PEA cardiac arrest with down time was less than 5 minutes. He required vasopressors immediately afterward. He had an emergent central line and hemodialysis catheter placed. He underwent emergent hemodialysis due to his acidosis. He was followed by critical care and nephrology. Infectious disease was consulted Rocephin was discontinued and he was started on Zosyn. An echocardiogram which showed ejection fraction 20-25% with moderate TR and MR and therefore cardiology was consulted. Renal ultrasound showed gallbladder wall thickening but no signs of hydronephrosis or nephrolithiasis. His legionella urine antigen Positive and he was subsequently transitioned to Levaquin. Patient was not doing well with sedation holidays and neurology was subsequently consulted. He underwent a head CT which showed chronic micro vascular ischemic changes and an EEG which showed moderate to severe background slowing. Left upper extremity venous Doppler showed no evidence of DVT but did show cephalic vein superficial thrombosis. He was successfully extubated on 03/08. Patient developed mucous plugging with white out on the left. He subsequently underwent bronchoscopy with Bronchoalveolar lavage on 03/10 Patient seen and examined at bedside. He is lethargic after receiving sedation for his bronchoscopy. He is currently requiring BiPAP Vital signs reviewed General: nontoxic, no distress, appears at stated age Cardiovascular: S1S2 reg, no murmur, Lungs:Decreased bs bilateral, no rhonchi, no rales , no accessory muscle use Abdominal: soft, nontender to palpation, no guarding, no appreciable organomegaly Ext: no gross muscle atrophy, diffuse anasarca, no contractures Neuro: CN II-XI grossly intact, moving all 4 extremities independently. Psych: lethargic, Assessment/Plan: Legionella pneumonia with septic shock now resolved Acute hypoxic respiratory failure, improved Oral pharyngeal candidiasis Encephalopathy, metabolic and possible anoxic Left Mucus Plug -Infectious disease no reviewed: Continue with Levaquin and Eraxis -Pulmonary no reviewed: Aggressive pulmonary toilet, bronchoscopy, BiPAP use. - Levaquin 500 mg IV Q48H D#8 , Zosyn 3.375 now discontinued on 03/01-03/05 - Eraxis 100 mg IV piggyback daily D #5, once following more commands can transition to nystatin swish and swallow. - B12, TSH, Ammonia wnl. Systolic cardiomyopathy with ejection fraction 20-25% Elevated troponin due to demand ischemia, flat, not consistent with acute coronary syndrome -Cardiology note reviewed: Continue Minitran prior to dialysis only. No plans for coronary angiogram. -Metoprolol 25 mg 3 times daily hold for SBP <100 or HR <60 Diabetes mellitus type 2 with -A1c 8.2 -Continue with NovoLog sliding scale, d/c 7 units of NovoLog every 6 hours, Levemir 15 units daily in the morning Acute kidney injury secondary to ATN with cardiac arrest on chronic kidney disease stage IIIB, biopsy-proven diabetic kidney disease a severe interstitial fibrosis Anemia related to chronic kidney disease -Nephrology recommendations: Start Lasix drip at 10 mg/h - avoid nephrotoxic agents - maintain map >65 - follow Cr and urine output for renal recovery Supoerficial thrombosis of left cephalic vein - warm compresses as needed Rhabdomyolysis, resolved, statin on hold Thrombocytopenia: HIT panel negative. Heparin restarted. hyperglycemia (resolved) PEA arrest Imaging: None new reviewed Data Review: Labs reviewed today include CBC and basic metabolic profile which show white blood cell count 15, hemoglobin 8.6, platelets are up to 188, sodium 136, BUN 86, creatinine 3.89 DVT prophylaxis: Heparin SC Anticipated discharge date: Pending Clinical Course Anticipated discharge place: Pending Clinical Course This dictation was prepared using [employer] voice recognition software. Though every attempt is made to correct errors during dictation some may still exist. Objective - Vital Signs Vital signs: Vital Signs Temp 97.8 F 03/10/23 12:00 Pulse 84 03/10/23 13:00 Resp 16 03/10/23 13:00 BP 111/64 03/10/23 13:00 Pulse Ox 98 03/10/23 13:00 FiO2 40 03/10/23 12:00 Intake & Output 03/09/23 03/10/23 03/10/23 18:59 06:59 18:59 Intake Total 1406 366 346 Output Total 3030 935 655 Balance -1624 -569 -309 Weight 83.7 kg 83.2 kg Intake: IV 230 100 Anidulafungin 100 mg In 100 100 Sodium Chloride 0.9% 100 ml @ 84 mls/hr IVPB DAILY [facility] Rx#:[id number] Invasive Line 1 30 Levofloxacin 500Mg-D5w 100 Pmx 500 mg In Dextrose/ Water 1 100ml.bag @ 100 mls/hr IVPB Q48H GAL[facility]O Rx#: [id number] Oral 200 200 Tube Feeding 586 276 46 Hemodialysis 300 Other 90 90 0 Output: Urine 730 935 655 Hemodialysis 2300 Other: Voiding Method Indwelling Catheter Indwelling Catheter Indwelling Catheter # Bowel Movements 100 0 0 ABP, PAP, CO, CI - Last Documented Arterial Blood Pressure 72/72 - Labs CBC & Chem 7: 03/10/23 05:30 03/10/23 05:25 Labs: Abnormal Lab Results - Last 24 Hours (Table) 03/09/23 03/09/23 03/10/23 Range/Units 17: 17:30 01:34 WBC (3.8-10.6) k/uL RBC (4.30-5.90) m/uL Hgb (13.0-17.5) gm/dL Hct (39.0-53.0) % RDW (11.5-15.5) % Neutrophils # (1.3-7.7) k/uL Lymphocytes # (1.0-4.8) k/uL Sodium (137-145) mmol/L BUN (9-20) mg/dL Creatinine (0.66-1.25) mg/dL Glucose (74-99) mg/dL POC Glucose (mg/dL) 56 L 182 H 68 L (70-110) mg/dL Calcium (8.4-10.2) mg/dL 03/10/23 03/10/23 03/10/23 Range/Units 02:11 05:25 05:30 WBC 12.3 H (3.8-10.6) k/uL RBC 3.10 L (4.30-5.90) m/uL Hgb 8.6 L (13.0-17.5) gm/dL Hct 27.0 L (39.0-53.0) % RDW 16.0 H (11.5-15.5) % Neutrophils # 10.9 H (1.3-7.7) k/uL Lymphocytes # 0.6 L (1.0-4.8) k/uL Sodium 133 L (137-145) mmol/L BUN 75 H (9-20) mg/dL Creatinine 3.06 H (0.66-1.25) mg/dL Glucose 110 H (74-99) mg/dL POC Glucose (mg/dL) 136 H (70-110) mg/dL Calcium 7.9 L (8.4-10.2) mg/dL 03/10/23 03/10/23 03/10/23 Range/Units 06:12 07:55 11:17 WBC (3.8-10.6) k/uL RBC (4.30-5.90) m/uL Hgb (13.0-17.5) gm/dL Hct (39.0-53.0) % RDW (11.5-15.5) % Neutrophils # (1.3-7.7) k/uL Lymphocytes # (1.0-4.8) k/uL Sodium (137-145) mmol/L BUN (9-20) mg/dL Creatinine (0.66-1.25) mg/dL Glucose (74-99) mg/dL POC Glucose (mg/dL) 119 H 145 H 142 H (70-110) mg/dL Calcium (8.4-10.2) mg/dL
[2023-03-10 17:13] LABS: Glucose,Whole Blood 80 mg/dL (70-110)
[2023-03-11 00:06] LABS: Glucose,Whole Blood 103 mg/dL (70-110)
[2023-03-11] MEDS: INSULIN ASPART (NovoLOG) 100 UNIT/ML VIAL SQ SCH ×5 (00:12→21:15)
[2023-03-11] MEDS: FUROSEMIDE 100 MG in SODIUM CHLORIDE 0.9% 90 ML IV SCH ×2 (05:55→15:30)
[2023-03-11 06:01] LABS: Glucose,Whole Blood 104 mg/dL (70-110)
[2023-03-11] MEDS: INSULIN DETEMIR (LEVEMIR) 100 UNIT/ML SYR SQ SCH (06:54)
[2023-03-11 07:15] LABS: HCT 25.2 % (39.0-53.0); HGB 7.9 gm/dL (13.0-17.5); Hypochromasia Slight; MCH 27.6 pg (25.0-35.0); MCHC 31.2 g/dL (31.0-37.0); MCV 88.6 fL (80.0-100.0); Mean Platelet Volume 9.1; Platelet Count 202 k/uL (150-450); RBC 2.85 m/uL (4.30-5.90); WBC 10.7 k/uL (3.8-10.6)
[2023-03-11 07:30] LABS: African American GFR (CKD) 18 (>60 ml/min/1.73 sqM); Anion Gap 13 mmol/L; Blood Urea Nitrogen 87 mg/dL (9-20); Calcium 8.1 mg/dL (8.4-10.2); Carbon Dioxide 22 mmol/L (22-30); Chloride 100 mmol/L (98-107); Glucose 94 mg/dL (74-99); Non-African American GFR(CKD) 15 (>60 ml/min/1.73 sqM); Potassium 5.1 mmol/L (3.5-5.1); Sodium 135 mmol/L (137-145)
--- NOTE | 2023-03-11 07:32 | XR ---
EXAMINATION TYPE: XR chest 1V DATE OF EXAM: 03/11/2023 5:39 AM CLINICAL INDICATION:Male, 62 years old with history of post bronchoscopy; [facility] COMPARISON: Chest radiograph 03/10/2023 TECHNIQUE: XR chest 1V Frontal view of the chest. FINDINGS: Lungs/Pleura: Suspected left-sided pleural effusion is overall stable in appearance. No evidence of p neumothorax. Pulmonary vascularity: Unremarkable. Heart/mediastinum: Cardiomediastinal silhouette is unremarkable. Musculoskeletal: No acute osseous pathology. Enteric tube is seen coursing below the level diaphragm. Left-sided central line is noted terminating near the cavoatrial junction. IMPRESSION: Stable left pleural effusion and support lines/tubes.
[2023-03-11 09:18] LABS: Glucose,Whole Blood 125 mg/dL (70-110)
[2023-03-11] MEDS: SODIUM BICARBONATE TAB 650 MG TAB PO SCH ×2 (09:44→21:04)
[2023-03-11] MEDS: FOLIC ACID 1 MG TAB PO SCH (09:44)
[2023-03-11] MEDS: HEPARIN SODIUM,PORCINE 5,000 UNIT/ML 1 ML VIAL SQ SCH ×2 (09:44→21:04)
[2023-03-11] MEDS: METOPROLOL TARTRATE 25 MG TAB PO SCH ×3 (09:44→21:04)
[2023-03-11] MEDS: allopurinoL 100 MG TAB PO SCH (09:44)
[2023-03-11] MEDS: PANTOPRAZOLE 40 MG/10 ML VIAL IVP SCH (09:45)
[2023-03-11] MEDS: ANIDULAFUNGIN 100 MG in SODIUM CHLORIDE 0.9% 100 ML IVPB SCH (09:45)
--- NOTE | 2023-03-11 11:10 | P.PN ---
Subjective Progress Note Date: 03/11/23 Patient is a 62-year-old male with chronic kidney disease stage IV/5, hypertension, gout, and diabetes mellitus Type 2 who presented to the ED after being found down by his father. In the ER he underwent an externsive evaluation and was found to have ROSANGELA on CKD with hyperkalemia and significant metabolic acidosis, pneumonia with sepsis, rhabdo, and encephalopathy. He was admitted and was started on Rocephin and Zithromax as well as IV fluids. Nephrology was consulted. Shortly after admission the patient suffered a PEA cardiac arrest with down time was less than 5 minutes. He required vasopressors immediately afterward. He had an emergent central line and hemodialysis catheter placed. He underwent emergent hemodialysis due to his acidosis. He was followed by critical care and nephrology. Infectious disease was consulted Rocephin was discontinued and he was started on Zosyn. An echocardiogram which showed ejection fraction 20-25% with moderate TR and MR and therefore cardiology was consulted. Renal ultrasound showed gallbladder wall thickening but no signs of hydronephrosis or nephrolithiasis. His legionella urine antigen Positive and he was subsequently transitioned to Levaquin. Patient was not doing well with sedation holidays and neurology was subsequently consulted. He underwent a head CT which showed chronic micro vascular ischemic changes and an EEG which showed moderate to severe background slowing. Left upper extremity venous Doppler showed no evidence of DVT but did show cephalic vein superficial thrombosis. He was successfully extubated on 03/08. Patient developed mucous plugging with white out on the left. He subsequently underwent bronchoscopy with Bronchoalveolar lavage on 03/10 Patient seen and examined at bedside. He has not complaints currently, no chest pain, SOB, or nausea. Vital signs reviewed General: nontoxic, no distress, appears at stated age Cardiovascular: S1S2 reg, no murmur, Lungs:Decreased bs bilateral, no rhonchi, no rales , no accessory muscle use Abdominal: soft, nontender to palpation, no guarding, no appreciable organomegaly Ext: no gross muscle atrophy, diffuse anasarca, no contractures Neuro: CN II-XI grossly intact, moving all 4 extremities independently. Psych: Awake, alert, appropriate affect Assessment/Plan: Legionella pneumonia with septic shock now resolved Acute hypoxic respiratory failure, improved Oral pharyngeal candidiasis Encephalopathy, metabolic and possible anoxic Left Mucus Plug s/p bronch on 03/10. -Infectious disease no reviewed: Continue with Levaquin and Eraxis -Pulmonary no reviewed: Aggressive pulmonary toilet, bronchoscopy, BiPAP use. - Levaquin 500 mg IV Q48H D#9 , Zosyn 3.375 now discontinued on 03/01-03/05 - Eraxis 100 mg IV piggyback daily D #6, once following more commands can transition to nystatin swish and swallow. - B12, TSH, Ammonia wnl. Systolic cardiomyopathy with ejection fraction 20-25% Elevated troponin due to demand ischemia, flat, not consistent with acute coronary syndrome -Await further Cardiology recs -Metoprolol 25 mg 3 times daily hold for SBP <100 or HR <60 Diabetes mellitus type 2 with episode of hypoglycemia -A1c 8.2 -Continue with NovoLog sliding scale, Levemir 10units daily in the morning Acute kidney injury secondary to ATN with cardiac arrest on chronic kidney disease stage IIIB, biopsy-proven diabetic kidney disease a severe interstitial fibrosis Anemia related to chronic kidney disease - Lasix drip at 10 mg/h - await further nephro recs - avoid nephrotoxic agents - maintain map >65 - follow Cr and urine output for renal recovery Supoerficial thrombosis of left cephalic vein - warm compresses as needed Rhabdomyolysis, resolved, statin on hold Thrombocytopenia: HIT panel negative. Heparin restarted. hyperglycemia (resolved) PEA arrest Imaging: Chest x-ray is reviewed by myself reveals persistent left lower lobe infiltrate and increased pulmonary vascular markings Data Review: Labs reviewed from today include CBC and basic metabolic profile which are remarkable for white blood cell count 10.7, hemoglobin 7.9, sodium 135, BUN 87, creatinine 3.97 Urine output yesterday 2195 mL DVT prophylaxis: Heparin SC Anticipated discharge date: Pending Clinical Course Anticipated discharge place: Pending Clinical Course This dictation was prepared using [employer] voice recognition software. Though every attempt is made to correct errors during dictation some may still exist. Objective - Vital Signs Vital signs: Vital Signs Temp 98.2 F 03/11/23 08:00 Pulse 106 H 03/11/23 10:00 Resp 14 03/11/23 10:00 BP 126/74 03/11/23 10:00 Pulse Ox 92 L 03/11/23 10:00 FiO2 40 03/11/23 08:05 Intake & Output 03/10/23 03/11/23 03/11/23 18:59 06:59 18:59 Intake Total 468 781.166 539 Output Total 1075 1120 475 Balance -607 -338.834 64 Weight 82.2 kg Intake: IV 100 Anidulafungin 100 mg In 100 Sodium Chloride 0.9% 100 ml @ 84 mls/hr IVPB DAILY GALINDO Rx#:[id number] Intake, IV Titration 169.166 Amount Furosemide 100 mg In 169.166 Sodium Chloride 0.9% 90 ml @ 10 MG/HR 10 mls/hr IV .Q10H GALINDO Rx#: [id number] Oral 200 200 430 Tube Feeding 138 322 79 Other 30 90 30 Output: Urine 1075 1120 475 Other: Voiding Method Indwelling Catheter Indwelling Catheter Indwelling Catheter # Bowel Movements 0 0 ABP, PAP, CO, CI - Last Documented Arterial Blood Pressure 72/72 - Labs CBC & Chem 7: 03/11/23 05:55 03/11/23 05:55 Labs: Abnormal Lab Results - Last 24 Hours (Table) 03/10/23 03/11/23 03/11/23 Range/Units 11:17 05:55 05:55 WBC 10.7 H (3.8-10.6) k/uL RBC 2.85 L (4.30-5.90) m/uL Hgb 7.9 L (13.0-17.5) gm/dL Hct 25.2 L (39.0-53.0) % RDW 16.0 H (11.5-15.5) % Sodium 135 L (137-145) mmol/L BUN 87 H (9-20) mg/dL Creatinine 3.97 H (0.66-1.25) mg/dL POC Glucose (mg/dL) 142 H (70-110) mg/dL Calcium 8.1 L (8.4-10.2) mg/dL 03/11/23 Range/Units 09:16 WBC (3.8-10.6) k/uL RBC (4.30-5.90) m/uL Hgb (13.0-17.5) gm/dL Hct (39.0-53.0) % RDW (11.5-15.5) % Sodium (137-145) mmol/L BUN (9-20) mg/dL Creatinine (0.66-1.25) mg/dL POC Glucose (mg/dL) 125 H (70-110) mg/dL Calcium (8.4-10.2) mg/dL Microbiology - Last 24 Hours (Table) 03/10/23 10:12 Gram Stain - Preliminary Bronchial Washings - Left
[2023-03-11 11:26] LABS: Glucose,Whole Blood 167 mg/dL (70-110)
--- NOTE | 2023-03-11 11:32 | P.PN ---
Subjective Progress Note Date: 03/11/23 The patient is a 62-year-old male who presented to the hospital after mechanical fall. The patient was on the observation unit when he had a PEA arrest with approximate downtime of 5 minutes. Patient was initiated on low-dose beta blockers and has been weaning off of his midodrine. He was successfully ex tubated and his neurological status has significantly improved. He developed a mucous plug which required bronchoscopy. Chest x-ray significantly improved this morning. He was started on a Lasix drip. The patient is resting comfortably in bed this morning. He denies any pain or discomfort. GENERAL: Ill-appearing, well-nourished male. Disoriented to place and time. NECK: Supple without JVD or thyromegaly. LUNGS: Breath sounds diminished to auscultation bilaterally. Respiration equal and unlabored. Improved aeration. HEART: Regular rate and rhythm without murmurs, rubs or gallops. S1 and S2 heard. EXTREMITIES: Limited movement of right upper extremity, no edema. No clubbing or cyanosis. Palpable peripheral pulses, weak. Ulcers on bilateral great toes. TELEMETRY: Sinus tachycardia with heart rates in the low 100s since starting the furosemide drip LABS: WBC 10.7, hemoglobin 7.9, hematocrit 25.2, platelet 22, sodium 135, potassium 5.1, BUN 87, creatinine 3.97 IMPRESSION: Status post cardiac arrest, PEA Acute hypoxic respiratory failure Acute renal failure, on dialysis Cardiomyopathy with severe LV dysfunction Cardiogenic shock History of diabetes PLAN: Continue supportive treatment Aggressive pulmonary hygiene Diuresis per nephrology Further recommendations to be based upon clinical course I am dictating on behalf of Dr Los Bond's history/physical and assessment /plan. Objective - Vital Signs Vital signs: Vital Signs Temp 98.2 F 03/11/23 08:00 Pulse 106 H 03/11/23 10:00 Resp 14 03/11/23 10:00 BP 126/74 03/11/23 10:00 Pulse Ox 92 L 03/11/23 10:00 FiO2 40 03/11/23 08:05 Intake & Output 03/10/23 03/11/23 03/11/23 18:59 06:59 18:59 Intake Total 468 781.166 539 Output Total 1075 1120 475 Balance -607 -338.834 64 Weight 82.2 kg Intake: IV 100 Anidulafungin 100 mg In 100 Sodium Chloride 0.9% 100 ml @ 84 mls/hr IVPB DAILY [facility]O Rx#:[id number] Intake, IV Titration 169.166 Amount Furosemide 100 mg In 169.166 Sodium Chloride 0.9% 90 ml @ 10 MG/HR 10 mls/hr IV .Q10H [facility]O Rx#: [id number] Oral 200 200 430 Tube Feeding 138 322 79 Other 30 90 30 Output: Urine 1075 1120 475 Other: Voiding Method Indwelling Catheter Indwelling Catheter Indwelling Catheter # Bowel Movements 0 0 ABP, PAP, CO, CI - Last Documented Arterial Blood Pressure 72/72 - Labs CBC & Chem 7: 03/11/23 05:55 03/11/23 05:55 Labs: Abnormal Lab Results - Last 24 Hours (Table) 03/11/23 03/11/23 03/11/23 Range/Units 05:55 05:55 09:16 WBC 10.7 H (3.8-10.6) k/uL RBC 2.85 L (4.30-5.90) m/uL Hgb 7.9 L (13.0-17.5) gm/dL Hct 25.2 L (39.0-53.0) % RDW 16.0 H (11.5-15.5) % Sodium 135 L (137-145) mmol/L BUN 87 H (9-20) mg/dL Creatinine 3.97 H (0.66-1.25) mg/dL POC Glucose (mg/dL) 125 H (70-110) mg/dL Calcium 8.1 L (8.4-10.2) mg/dL 03/11/23 Range/Units 11:25 WBC (3.8-10.6) k/uL RBC (4.30-5.90) m/uL Hgb (13.0-17.5) gm/dL Hct (39.0-53.0) % RDW (11.5-15.5) % Sodium (137-145) mmol/L BUN (9-20) mg/dL Creatinine (0.66-1.25) mg/dL POC Glucose (mg/dL) 167 H (70-110) mg/dL Calcium (8.4-10.2) mg/dL Microbiology - Last 24 Hours (Table) 03/10/23 10:12 Gram Stain - Preliminary Bronchial Washings - Left
--- NOTE | 2023-03-11 11:44 | P.PN ---
Subjective Progress Note Date: 03/11/23 Principal diagnosis: Sepsis and Legionella pneumonia Patient is a 62-year-old male with a past medical history significant for diabetes mellitus hypertension renal insufficiency patient was brought into the ER concerning for weakness and did have some respiratory symptoms patient did have a fever and worsening respiratory status requiring intubation and admission to the ICU the patient urine for digital antigen came back positive evening of 03/01/2023. Patient is status post bronchoscopy and lavage for mucus plugging on 03/10/2023 On today's evaluation that is 03/11/2023 patient continues to be afebrile, the patient is hemodynamically stable not requiring any pressor support, patient is breathing comfortably on room air, the patient is lethargic and unable to answer any question no vomiting or any worsening diarrhea reported by the nursing staff Patient white count is down to 10.7 creatinine is 3.97, blood and sputum cultures has been negative, urine for Legionella antigen is positive, stool for C. diff is negative, BAL cultures pending Objective - Vital Signs Vital signs: Vital Signs Temp 98.2 F 03/11/23 08:00 Pulse 106 H 03/11/23 10:00 Resp 14 03/11/23 10:00 BP 126/74 03/11/23 10:00 Pulse Ox 92 L 03/11/23 10:00 FiO2 40 03/11/23 08:05 Intake & Output 03/10/23 03/11/23 03/11/23 18:59 06:59 18:59 Intake Total 468 781.166 539 Output Total 1075 1120 475 Balance -373 -991.834 64 Weight 82.2 kg Intake: IV 100 Anidulafungin 100 mg In 100 Sodium Chloride 0.9% 100 ml @ 84 mls/hr IVPB DAILY [facility]O Rx#:[id number] Intake, IV Titration 169.166 Amount Furosemide 100 mg In 169.166 Sodium Chloride 0.9% 90 ml @ 10 MG/HR 10 mls/hr IV .Q10H GALINDO Rx#: [id number] Oral 200 200 430 Tube Feeding 138 322 79 Other 30 90 30 Output: Urine 1075 1120 475 Other: Voiding Method Indwelling Catheter Indwelling Catheter Indwelling Catheter # Bowel Movements 0 0 ABP, PAP, CO, CI - Last Documented Arterial Blood Pressure 72/72 - Exam GENERAL DESCRIPTION: Middle-aged male lying in bed in no distress RESPIRATORY SYSTEM: Unlabored breathing , decreased breath sound at the base HEART: S1 S2 regular rate and rhythm , ABDOMEN: Soft , no tenderness EXTREMITIES: No edema feet - Labs CBC & Chem 7: 03/11/23 05:55 03/11/23 05:55 Labs: Abnormal Lab Results - Last 24 Hours (Table) 03/11/23 03/11/23 03/11/23 Range/Units 05:55 05:55 09:16 WBC 10.7 H (3.8-10.6) k/uL RBC 2.85 L (4.30-5.90) m/uL Hgb 7.9 L (13.0-17.5) gm/dL Hct 25.2 L (39.0-53.0) % RDW 16.0 H (11.5-15.5) % Sodium 135 L (137-145) mmol/L BUN 87 H (9-20) mg/dL Creatinine 3.97 H (0.66-1.25) mg/dL POC Glucose (mg/dL) 125 H (70-110) mg/dL Calcium 8.1 L (8.4-10.2) mg/dL 03/11/23 Range/Units 11:25 WBC (3.8-10.6) k/uL RBC (4.30-5.90) m/uL Hgb (13.0-17.5) gm/dL Hct (39.0-53.0) % RDW (11.5-15.5) % Sodium (137-145) mmol/L BUN (9-20) mg/dL Creatinine (0.66-1.25) mg/dL POC Glucose (mg/dL) 167 H (70-110) mg/dL Calcium (8.4-10.2) mg/dL Microbiology - Last 24 Hours (Table) 03/10/23 10:12 Gram Stain - Preliminary Bronchial Washings - Left Assessment and Plan (1) Legionella pneumonia Current Visit: Yes Status: Acute Code(s): A48.1 - LEGIONNAIRES' DISEASE SNOMED Code(s): 138792587 (2) Sepsis Current Visit: Yes Status: Acute Code(s): A41.9 - SEPSIS, UNSPECIFIED ORGANISM SNOMED Code(s): 56818743 Plan: 1patient presented to hospital with sepsis in this patient with a fever tachycardia hypotension source is likely left lower lobe pneumonia in this patient with weakness lethargy and decreased level of responsiveness and the question of community-acquired versus aspiration pneumonia 2- leukocytosis possible oropharyngeal candidiasis, white count is trending down with eraxis, down to 10.7, we will continue the patient on Eraxis 3-urine for Legionella antigen is positive, sputum cultures are currently negative for any resistant pathogen , patient did have some clinical improvement and will continue with the current treatment of Levaquin Dictation was produced using [employer] dictation software. please excuse any gr ammatical, word or spelling errors.
--- NOTE | 2023-03-11 12:08 | P.PN ---
Subjective Progress Note Date: 03/11/23 I am seeing this patient in new consultation today 03/01/2023 in the intensive care unit, after the patient had a witnessed PEA cardiac arrest while on the Observation unit. Patient is a 62-year-old white male with past medical history significant for diabetes mellitus, diabetic foot ulcers, hypertension, hyperlipidemia, iron deficiency anemia, chronic kidney disease. Patient is currently sedated and intubated on the mechanical ventilator. He was admitted yesterday morning, after being found on the floor by his father. Apparently, the patient denied hitting his head or losing consciousness. Patient does have diabetes mellitus, and his blood sugars had been running high at home. Chest x- ray on admission showed a left lower lobe infiltrate consistent with community acquired pneumonia. Patient did have a fever with a T-max of 100.7F. Apparently, after being admitted to the observation unt, the patient was noted to have low blood pressure. The patient was given 1 L normal saline bolus and 5 amps sodium bicarb. Soon after, the patient had a cardiac arrest. Presenting rhythm was PEA. Patient had a limited downtime of less than 5 minutes. He received 1 mg of epinephrine. Rapid sequence intubation was performed. The patient was then transferred to the intensive care unit. Dr. Lacy did come in and place a left subclavian central line catheter and a right wrist arterial line. Patient was also noted to be in acute renal failure. He did have a right femoral hemodialysis catheter placed earlier, and is currently undergoing emergent hemodialysis. Patient is currently in the intensive care unit, intubated to the mechanical ventilator. He is sedated on propofol which is currently infusing at 40 mcg/kg/m. He is synchronous with the mechanical ventilator. Postintubation ABG shows a pO2 greater than 400, pCO2 27, pH of 7.43, this was done on ventilator settings of assist control, respiratory rate 22, tidal volume 500, FiO2 100%, and PEEP of 5. Patient's FiO2 was dropped to 50%. Peak pressures 27. Post intubation chest x-ray shows the endotracheal tube 4 cm above the anika. Oral gastric tube could be advanced 5 cm. There is a persistent left lower lobe infiltrate. Most recent CBC from yesterday evening showed a WBC count of 7.8, hemoglobin 7.1, hematocrit 22.7, platelets 120. No obvious acute blood loss was noted. Most recent available BMP shows sodium 140, potassium 4.6, chloride 107, serum bicarb 15, BUN 107, creatinine 7.82, glucose 282. Acetone negative. LFTs not elevated. CPK 1240. Currently, 3 A sodium bicarb in D5W is infusing at 100 ML's per hour. There is also normal saline infusing at 130 ML's per hour. Patient is currently anuric. Troponins elevated at 0.457, 0.388, and 0.422 respectively. ECG shows normal sinus rhythm without any obvious acute ischemic changes. Urinalysis not concerning for UTI. Lactic acid level was elevated at 4 is down 1.6. Negative for influenza, RSV, COVID- 19. Patient was started on empiric antibiotics in the form of ceftriaxone and azithromycin. Currently afebrile. Patient's condition is currently critical, moderate in the intensive care unit. Progress note dated 03/02/2023. 62-year-old male who was seen in consultation yesterday, status post cardiopulmonary arrest. The patient had a witnessed PEA arrest. He had a very short resuscitation time of about 5 minutes. The patient was transferred to the intensive care unit. I came into the hospital, on Sunday evening, and placed a right radial art line, and a left subclavian triple-lumen catheter. Remains in the intensive care unit, on the ventilator. Currently, the patient is on the volume assist control, rate 22, tidal volume 500, FiO2 50% PEEP of 5. Blood gases show pO2 of 97, pCO2 25, and pH is 7.53. The patient is receiving saline at 100 mL an hour, propofol at 40 mcg/kg/m, norepinephrine at 7.7 mcg/m, and vital high protein at 35 mL an hour, with a goal of 54 mL an hour. White count 12.1, hemoglobin 8.2, hematocrit 25.1, and platelet count 139,000. Sodium is 137, potassium 3.6, chlorides 105, CO2 18, anion gap 14, BUN 73, and creatinine 5.21. Calcium is 7.1. Today, is likely a dialysis day. Culture information is pending or negative. Chest x-ray continues to show a consolidative process, in the left midlung left lower lobe area. Progress note dated 03/03/2023. 62-year-old male who is seen today in room 264. The patient remains on mechanical ventilator, having sustained a cardiopulmonary arrest. Ventilator settings include the volume assist control, rate 22, tidal volume 500, FiO2 50%, and PEEP of 5. Arterial blood gases show pO2 38, pCO2 34, and the pH is 7.45. The patient remains on norepinephrine at 5 mcg/m, propofol at 30 mcg/kg/m, and saline at 100 mL an hour. The patient's also getting vital high protein at 69 mL an hour, which is goal. White count is 11, hemoglobin 8.3, hematocrit 25.3, and platelet count 109,000. Sodium 134, potassium 3.2, chlorides 103, CO2 19, BUN 56, and creatinine 3.35. Microbiologic sampling as as far negative. Chest x-ray shows extensive infiltrate, and left midlung and left lower lobe area. The patient continues on Zosyn and Levaquin. Yesterday, we attempted a daily interruption of sedation, and the patient did not do well. We will attempt that again today. Progress note dated 03/04/2023. 62-year-old male, seen again in room 264. The patient remains on the mechanical ventilator. He is status post brief cardiopulmonary arrest, with cardiop ulmonary resuscitation, and return of spontaneous circulation. The cardiac arrest was brief, lasting maybe 5-7 minutes. Current ventilator settings include the volume assist control, rate 22, tidal volume 500, FiO2 50%, and PEEP of 5. Blood gases show pO2 of 73, pCO2 31, and pH 7.51. The patient continues on propofol at 35 mcg/kg/m, norepinephrine at 4 mcg/m, and saline at KVO. The patient is getting vital high protein at 69 mL an hour, which is goal. His Legionella urinary antigen was positive. His chest x-ray continues to show a left-sided infiltrate. He did have hemodialysis yesterday, and 1 L of fluid was removed. White count 10.4, hemoglobin 8.6, hematocrit 26.8, and platelet count 82,000. Sodium 133, potassium 3.8, chlorides 102, CO2 21, BUN 52, creatinine 2.55. Chest x-ray shows a patchy infiltrate, involving the left midlung and left lower lobe area. The chest x-ray in my opinion is essentially unchanged. On 03/05/2023, I'm seeing the patient in the intensive care unit. The patient is currently intubated on a mechanical ventilator. The patient is post cardiac arrest that occurred on 02/28/2023. The patient presented to us with an acute kidney injury on top of chronic kidney failure. He was profoundly acidotic at the time of admission and the serum bicarb was down to 10. No significant hyperkalemia. He was admitted to the medical/he had a cardiac arrest. His down time was estimated to be more than 5 minutes. He received at least 5 minutes of CPR and there was return of spontaneous circulation. His echocardiogram shows severely and. Impaired LV function with an EF of around 20-25%. Since then, the patient has not had any major cardiac events. His cardiac rhythm is sinus. He is currently undergoing hemodialysis for end-stage renal disease. Note that the patient has sustained an acute kidney injury on top of his chronic kidney failure. His baseline GFR was 18 and the patient has chronic stage IV kidney disease. He has a hemodialysis catheter in his right femoral. He is being dialyzed periodically and shared services manager on the case. Meanwhile, he remains intubated on a mechanical ventilator. His calm and comfortable on propofol which is running at 20 mcg/kg/m. He is receiving daily sedation holidays. He was not felt to be neurologically awake enough to be extubated. His most recent CAT scan of the brain was done on 03/04/2023 and the patient was not found to have an acute abnormalities. The patient had mild to moderate generalized brain atrophy. No edema. No stroke. Neurology is on the case and the patient was given an EGD today and there is also still pending for now. Hemodynamically, the patient is requiring low-dose norepinephrine at 0.04 mcg/kg/m. He is afebrile. His most recent chest x-ray that was done today showed extensive consolidation of the left lower lobe and the lingula. Legionella urine antigen was positive and this is likely a Legionella pneumonia. This was present on earlier chest x-rays that dates back to 02/28/2023. It is likely that the patient presented to us with a pneumonia. Possibility of a aspiration pneumonia at a time of his cardiac arrest cannot be completely ruled out. His sputum is negative. Blood cultures negative. Antibiotic coverage is a combination of Zosyn and Levaquin. He is diabetic on Levemir insulin 20 units and is also taking NovoLog 7 units 3 times a day. Enteral feeding for nutritional support and the patient is currently on vital HP at at the rate of 69 mL an hour. He is afebrile. No other significant events overnight. His current ventilator s ettings include an assist-control mode rate of 24, tidal volume of 500, FiO2 of 50% with a PEEP of 5. The blood gas shows a pH of 7.46 with a pCO2 of 28 and pO2 of 86. On 03/06/2023, the patient is opening his eyes spontaneously. He is tracking. Is not following any commands. He is currently on 15 mcg/kg/m of propofol and when a positive further weaning this propofol. His overall respiratory status is stable. Is currently on assist control mode with a rate of 16, tidal volume of 500, FiO2 of 40% with a PEEP of 5. As mentioned earlier, he has a Legionella left lower lobe pneumonia and he continues to have persistent consolidation of the left lower lobe. Blood gas from today shows a pH of 7.46 with a pCO2 of 33 and pO2 of 67 and this was done on the above-mentioned ventilator settings. Meanwhile, the patient is still requiring low-dose pressors. Currently on norepinephrine running at 0.03 mcg/kg/m. He is undergoing periodic dialysis as the patient sustained an acute kidney injury on top of his chronic kidney failure. His last session of hemodialysis was yesterday and the patient was also infiltrated for a total of 0.5 L. His urine output as such is minimal at this point. Urine is a 78 with a creatinine of 2.8 and a sodium level is 132. Serum bicarbs of 19. White cell cause of 14.4 with a hemoglobin of 9.1 and a platelet count of 110. Neurologically, as stated, the patient had a negative CAT scan of the brain. EEG showed slowing moderate to severe degree of slowing, generalized dysfunction, no evidence of any seizure activity. Neurology is on the case. He remains on Levaquin. Fecal management system in Place and the patient is still stooling, liquid stool and stool for C. diff has been negative. Blood cultures have been negative. He remains on Levemir insulin 20 units along with NovoLog 7 units [id number] plus a sliding scale coverage. IV fluids are currently at KVO. As stated, he has severe impairment of LV function with an fraction of 20-25%. Cardiac rhythm remained sinus. on 03/07/2023, I'm seeing the patient for a follow-up. The patient remains intubated on mechanical ventilator. We will gradually weaning him off the s edation. He was taken off propofol as of 5 AM this morning. He is currently on no sedation. We have noticed ongoing but slow improvement in his level of alertness and I was told that he was intermittently following commands. This is quite encouraging . Furthermore, the patient remains on a mechanical ventilator. Today, his assist control of 16, tidal volume of 450, FiO2 of 40% and a PEEP of 5. Blood gas shows a pH of 7.44 with a pCO2 of 31 and pO2 of 94. His chest x-ray still showing consolidation of the left lower lobe related to his Legionella pneumonia. No significant respiratory secretions. We'll check his weaning parameters after he completes his hemodialysis which is currently in progress and he has another 2 hours to go.. The patient is producing some urine output and his urine output is in order of 10-50 mL an hour. His BUN is 104 and a creatinine 3.6 which is elevated compared to yesterday and the patient is still renal failure. Sodium level is at 133 and a bicarb level is at 17 is currently on IV fluids at [facility]. The white cell cause at 17.5, hemoglobin is at 8.7 and a platelet count is 132. Is on no pressors. He is hemodynamically stable. He is afebrile. He is on enteral feeding which was placed on hold in anticipation for possible extubation today. Despite his improved level of alertness, he remains profoundly weak in his upper extremities. He is doing minimal movement compared to yesterday using his arms. He doesn't reach. He tracks. He occasionally follows simple commands. His blood sugars under adequate control on Levemir insulin 20 units and is also taking 7 units of NovoLog with meals. He remains on Levaquin. No other significant events overnight. 03/08/2023, I'm seeing the patient for a follow-up. The patient remained off sedation. On today's evaluation, the patient is moving his arms, is able to wiggle his toes, is able to follow commands. He is opening his eyes spontaneously. Is tracking. Is off sedation. He was able to do some CPAP trials yesterday and overnight he was Assist-Control Mode of Mechanical Ventilation. Earlier This Morning, He Was a Tidal Volume of 450, FiO2 Was at 40% with a PEEP of 5 and a Respiratory Rate of 16. His Weaning Parameters Are Adequate. Is Unable to Give Me a Good NIF and VC , however his rapid shallow breathing index was less than 50. The patient accordingly was switched to a pressure support of 5 and a PEEP of 5 is able to generate tidal volumes of about 400 and his respiratory rate is currently at 20. No significant orotracheal secretions. He has an acceptable gag upon suctioning. He continues to have a left lower lobe consolidation regarding his left lung Legionella pneumonia. The patient was psychotic 60 with a hemoglobin of 8.6 and a platelet count of 147. Blood gas from today showed a pH of 7.44 with a pCO2 of 35 and pO2 of 103. He underwent hemodialysis yesterday and his creatinine is down to 3.1 with a BUN of 78 and sodium levels of 132 and a potassium level is at 4.4. Doppler of the upper extremity was done and it showed no evidence of any DVT in the left upper extremity. There was superficial venous thromboses in the cephalic vein. The patient is currently receiving enteral feeding for nutritional support. This was placed on hold in anticipation for possible extubation. Meanwhile, the patient has developed some diarrhea. He has a fecal management system in Place. 03/09/2023, the patient remains extubated. Noted the patient was weaned off the mechanical ventilator and the patient was extubated yesterday and currently is on room air oxygen. He is awake and alert and communicating. He is profoundly weak. Barely is able to wiggle his toes and he is unable to raise his arms against gravity. There is a very weak Handgrip. At the same time, the patient is not having any signs of respiratory distress. He has an NG tube in place. He is receiving enteral feeding for nutritional support and the patient is currently on Glucerna running at the rate of 47. He's an hour. His chest x-ray shows a persistent consolidation of left lung base related to Legionella pneumonia. Urine output is in order of 60 mL an hour and the patient is currently undergoing dialysis with a goal of ultrafiltration of 2.8 L. No agitation. BUN is at 96 with a creatinine of 3.8 and a sodium level is at 136. The white cell count of 15 with a hemoglobin of 8.6 and a platelet count of 188. He has a liquidy stool and he had no C diff On 03/10/2023, the patient is resting comfortably. Breathing is nonlabored and the patient is on 4 L of oxygen by nasal cannula with a pulse ox of 97%. He has a IV daily for enteral feeding for nutritional support. His chest x-ray from today is showing significant volume loss in the left lung. Suspect mucus plugging as the patient has of optimal ability to do adequate pulmonary toileting. Based on that, the plan was to do a bedside bronchoscopy for therapeutic airway suctioning. . It is possible also that there may be some limited pleural effusion and left lung. The patient was echoes at 12.3, hemoglobin is 8.6, platelet count is 175, BUN is at 75 with a creatinine of 3.06. Sodium is at 133. Last hemodialysis session was yesterday. Note that the patient had a Legionella pneumonia in the left lower lobe and the patient continued to have a persistent consolidation of the left lung base. He remains on Levaquin. She remains on Eraxis. Infectious diseases on the case. He is on no pressors at this point in time. On Levemir insulin, 15 units at bedtime and 10 units in the morning. Is also on NovoLog siding scale coverage. He remains on metoprolol 25 mg 3 times a day.. Last hemodialysis session was yesterday and the patient is producing adequate amount of urine output for the time being. . On 03/11/2023, the patient is post bronchoscopy. The repeat chest x-ray was done today and the patient has ongoing consolidation of the left lung base related to residual pneumonia. Is improvement in volume status examination of the left lung. He remains on oxygen at 4 L/m nasal cannula. He continues to receive enteral feeding for nutritional support. He is still weak and having episodes of confusion. Is communicating for now. He has profound motor weakness in all 4 extremities. He remains on Levaquin. No nausea. No abdominal pain or distention. He is producing urine output. No plans for dialysis today. He has of 87 with a creatinine of 3.97 and sodium is 135. WBC count 10.7 with a hemoglobin of 7.9. Oxygenation is further improved. The patient's current on room air oxygen with a pulse ox of 93%. He is on Levemir insulin 10 units in addition to sliding scale coverage. Heparin subcu for prophylaxis. Objective - Vital Signs Vital signs: Vital Signs Temp 98.4 F 03/11/23 04:00 Pulse 93 03/11/23 07:00 Resp 12 03/11/23 07:00 BP 116/66 03/11/23 07:00 Pulse Ox 93 L 03/11/23 08:05 FiO2 40 03/11/23 08:05 Intake & Output 03/10/23 03/11/23 03/11/23 18:59 06:59 18:59 Intake Total 468 781.166 99 Output Total 1075 1120 375 Balance -607 -338.834 -276 Weight 82.2 kg Intake: IV 100 Anidulafungin 100 mg In 100 Sodium Chloride 0.9% 100 ml @ 84 mls/hr IVPB DAILY GALINDO Rx#:[id number] Intake, IV Titration 169.166 Amount Furosemide 100 mg In 169.166 Sodium Chloride 0.9% 90 ml @ 10 MG/HR 10 mls/hr IV .Q10H GALINDO Rx#: [id number] Oral 200 200 Tube Feeding 138 322 69 Other 30 90 30 Output: Urine 1075 1120 375 Other: Voiding Method Indwelling Catheter Indwelling Catheter # Bowel Movements 0 0 ABP, PAP, CO, CI - Last Documented Arterial Blood Pressure 72/72 - Exam No acute distress, awake NG tube. Calm and comfortable. The patient is following simple commands. His profoundly weak. Breathing is nonlabored and patient is currently on room and oxygen Head exam was generally normal. There was no scleral icterus or corneal arcus. Mucous membranes were moist. HEENT examination is grossly unremarkable. Neck supple. Full range of motion. No adenopathy thyromegaly or neck vein distention. Cardiovascular examination reveals regular rhythm rate. S1-S2 normal. No S3 or S4. No discernible murmur noted. Heart sounds are distant. Lungs reveal bilateral rhonchi. No wheezes or crackles. Breath sounds are diminished on the left compared to the right Abdomen soft bowel sounds are heard. No masses or tenderness. The patient has a dialysis catheter, dialysis catheter in his right femoral vein. Extremities are intact. No cyanosis clubbing or edema. Skin is without rash or lesion. Neurologic examination is awake, communicating, following simple commands, profoundly weak especially in his lower extremity, motor power is 1 out of 5 in both upper and lower extremities. - Labs CBC & Chem 7: 03/11/23 05:55 03/11/23 05:55 Labs: Abnormal Lab Results - Last 24 Hours (Table) 03/10/23 03/11/23 03/11/23 Range/Units 11: 05:55 05:55 WBC 10.7 H (3.8-10.6) k/uL RBC 2.85 L (4.30-5.90) m/uL Hgb 7.9 L (13.0-17.5) gm/dL Hct 25.2 L (39.0-53.0) % RDW 16.0 H (11.5-15.5) % Sodium 135 L (137-145) mmol/L BUN 87 H (9-20) mg/dL Creatinine 3.97 H (0.66-1.25) mg/dL POC Glucose (mg/dL) 142 H (70-110) mg/dL Calcium 8.1 L (8.4-10.2) mg/dL 03/11/23 Range/Units 09:16 WBC (3.8-10.6) k/uL RBC (4.30-5.90) m/uL Hgb (13.0-17.5) gm/dL Hct (39.0-53.0) % RDW (11.5-15.5) % Sodium (137-145) mmol/L BUN (9-20) mg/dL Creatinine (0.66-1.25) mg/dL POC Glucose (mg/dL) 125 H (70-110) mg/dL Calcium (8.4-10.2) mg/dL Microbiology - Last 24 Hours (Table) 03/10/23 10:12 Gram Stain - Preliminary Bronchial Washings - Left Assessment and Plan Plan: Witnessed PEA cardiac arrest with a limited down time of less than 5 minutes. The cardiac arrest occurred on 02/28/2023. Patient remains intubated on mechanical ventilator. CAT scan of the brain that was done on 03/04/2023 showed no acute abnormalities. Anoxic encephalopathy with slow improvement of currently awake and alert, generalized motor weakness in all 4 extremities noted. Acute hypoxemic respiratory failure, requiring intubation and mechanical ventilation. Extubated on 03/08/2020. The patient was on room air oxygen. Subsequently, the chest x-ray from today shows volume loss and opacification of the left lung. Suspect mucus plugging and atelectasis. The patient had a bronchoscopy was done yesterday was limited but uterus was aspirated and suctioned out. A patient of the left lung is improved. The patient is currently on room air oxygen. Left lower lobe community-acquired pneumonia and sepsis, secondary to Legionella pneumophila. Severe cardiomyopathy with an ejection fraction of 20-25% Hypotension, probably due to a combination of septic and cardiogenic as the patient has impaired LV function. The patient is currently off norepinephrine Metabolic anion gap acidosis, secondary to lactic acidosis and sepsis, recovered Chronic stage IV kidney disease Acute on chronic kidney disease, currently receiving hemodialysis. Undergoing periodic dialysis and the last dialysis session was yesterday. Acute rhabdomyolysis, with mildly elevated CPK. Elevated troponins, likely related to supply/demand mismatch. Anemia of chronic disease, hemoglobin lower than baseline. Diabetes mellitus, insulin-dependent. Hyperlipidemia Diarrhea, patient has a fecal management system in Place. Stool for C. diff has been negative Superficial venous thrombosis of the cephalic veins based on ultrasound and the patient does have some edema in the left upper extremity. Diarrhea, improving/thickening and the patient had a negative C. diff. Chronic draining wounds in his feet bilaterally, largest the sole of the left foot with minimal amount of purulent drainage. No surrounding cellulitis. 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 Plan Patient is currently on room air oxygen Patient is post bronchoscopy and removal of mucous plugs from the left. Aggressive pulmonary toileting and chest PT Last hemodialysis session was on 03/09/2023 yesterday with a goal of 2.8 L of ultrafiltration Will likely need dialysis by Sunday Continue Levaquin Check stool for C. diff colitis was negative, diarrhea has subsided off pressors Patient is able to swallow. Nevertheless, his ability to meet caloric requirements are poor. We'll continue to use the enteral feeding for now Continue Levemir insulin Continue rest of the supportive care Left upper extremity superficial vein thrombosis the patient will need a permacath at the later stage, UO is adequate for now Wound services to consult on the chronic lower extremity/feet ulceration Long-term prognosis poor based above-mentioned comorbidities.
--- NOTE | 2023-03-11 14:53 | P.PN ---
Subjective Progress Note Date: 03/11/23 Follow-up for acute kidney injury. Was on dialysis, started on 03/01/2023. Last dialysis was 03/09/23. Catheter was removed. Urine output about 100 ML's an hour. On Lasix drip Objective - Vital Signs Vital signs: Vital Signs Temp 98.2 F 03/11/23 08:00 Pulse 92 03/11/23 12:00 Resp 12 03/11/23 12:00 BP 128/78 03/11/23 12:00 Pulse Ox 99 03/11/23 12:00 FiO2 40 03/11/23 12:00 Intake & Output 03/10/23 03/11/23 03/11/23 18:59 06:59 18:59 Intake Total 468 781.166 579 Output Total 1075 1120 700 Balance -607 -338.834 -121 Weight 82.2 kg Intake: IV 100 40 Anidulafungin 100 mg In 100 Sodium Chloride 0.9% 100 ml @ 84 mls/hr IVPB DAILY [facility] Rx#:[id number] Invasive Line 10 20 Invasive Line 9 20 Intake, IV Titration 169.166 Amount Furosemide 100 mg In 169.166 Sodium Chloride 0.9% 90 ml @ 10 MG/HR 10 mls/hr IV .Q10H [facility] Rx#: [id number] Oral 200 200 430 Tube Feeding 138 322 79 Other 30 90 30 Output: Urine 1075 1120 700 Other: Voiding Method Indwelling Catheter Indwelling Catheter Indwelling Catheter # Bowel Movements 0 0 ABP, PAP, CO, CI - Last Documented Arterial Blood Pressure 72/72 - Exam No acute distress S1-S2 heard Decreased breath sounds Lay catheter Edema - Labs CBC & Chem 7: 03/11/23 05:55 03/11/23 05:55 Labs: Abnormal Lab Results - Last 24 Hours (Table) 03/11/23 03/11/23 03/11/23 Range/Units 05:55 05:55 09:16 WBC 10.7 H (3.8-10.6) k/uL RBC 2.85 L (4.30-5.90) m/uL Hgb 7.9 L (13.0-17.5) gm/dL Hct 25.2 L (39.0-53.0) % RDW 16.0 H (11.5-15.5) % Sodium 135 L (137-145) mmol/L BUN 87 H (9-20) mg/dL Creatinine 3.97 H (0.66-1.25) mg/dL POC Glucose (mg/dL) 125 H (70-110) mg/dL Calcium 8.1 L (8.4-10.2) mg/dL 03/11/23 Range/Units 11:25 WBC (3.8-10.6) k/uL RBC (4.30-5.90) m/uL Hgb (13.0-17.5) gm/dL Hct (39.0-53.0) % RDW (11.5-15.5) % Sodium (137-145) mmol/L BUN (9-20) mg/dL Creatinine (0.66-1.25) mg/dL POC Glucose (mg/dL) 167 H (70-110) mg/dL Calcium (8.4-10.2) mg/dL Microbiology - Last 24 Hours (Table) 03/10/23 10:12 Gram Stain - Preliminary Bronchial Washings - Left Assessment and Plan Assessment: #1 Acute kidney injury secondary to hemodynamic ATN. -Baseline creatinine around 3.1-3.4 MG per DL. #2 status post cardiopulmonary arrest #3 diabetic kidney disease stage IIIB. #4 shock on levo fed #5 volume overload #6 hypervolemic hyponatremia Plan: #1 good urine output, dialysis catheter was removed on 03/09/2023. #2 continue with Lasix drip at 10 mg an hour. Renal function still bit worse today. #3 midodrine for hemodynamic support. #4 avoid nephrotoxic agents and hypotensive episodes.
[2023-03-11 16:25] LABS: Glucose,Whole Blood 199 mg/dL (70-110)
[2023-03-11] MEDS: LEVOFLOXACIN 500MG-D5W PMX 500 MG in DEXTROSE/WATER 1 100ML.BAG IVPB SCH (17:00)
[2023-03-11 21:13] LABS: Glucose,Whole Blood 166 mg/dL (70-110)
--- NOTE | 2023-03-12 00:05 | P.PN ---
Subjective Progress Note Date: 03/11/23 03/11/2023: Patient was seen for a follow-up. Patient is laying in the bed. The nurse was also present today. 03/08/2023: Patient was seen for a follow-up. Patient was extubated at 2:40 PM today. Patient is doing much better. He states "I'm okay". "I just about ". Patient then says some random statements like "I went to [employer]". He believes he is in [place]. He states that he is scheduled for kidney transplant. 03/07/2023: Patient was seen for a follow-up. Patient is laying in the bed, intubated, off sedation. Please refer to examination below. 03/06/2023: Patient was seen for a follow-up. Patient is laying in the bed, intubated, on propofol 20 mcg/kg per minute. Patient is off norepinephrine. Please refer to examination below. 03/05/2023: Patient initially seen by Dr. Francisco Lacy. Please refer to his note for details. Patient is a 62-year-old male with pneumonia and cardiac arrest for less than [address] head did not reveal any acute process. Patient was seen for follow-up. Patient currently on norepinephrine in 0.02 mcg/kg per minute with a rate of 5.32 mL per hour. Also on propofol 50 g/kg per minute. Patient is laying in the bed. He did open his eyes to calling his name. Please refer to examination below. No obvious seizure-like activity noted. Objective - Vital Signs Vital signs: Vital Signs Temp 98.4 F 03/11/23 16:00 Pulse 94 03/11/23 16:00 Resp 16 03/11/23 16:00 BP 116/69 03/11/23 16:00 Pulse Ox 98 03/11/23 16:00 FiO2 40 03/11/23 12:00 Intake & Output 03/10/23 03/11/23 03/11/23 18:59 06:59 18:59 Intake Total 468 007.803 4401.833 Output Total 1075 1120 1375 Balance -607 -338.834 -220.167 Weight 82.2 kg Intake: IV 100 80 Anidulafungin 100 mg In 100 Sodium Chloride 0.9% 100 ml @ 84 mls/hr IVPB DAILY [facility] Rx#:[id number] Invasive Line 10 40 Invasive Line 9 40 Intake, IV Titration 169.166 95.833 Amount Furosemide 100 mg In 169.166 95.833 Sodium Chloride 0.9% 90 ml @ 10 MG/HR 10 mls/hr IV .Q10H [facility] Rx#: [id number] Oral 200 200 870 Tube Feeding 138 322 79 Other 30 90 30 Output: Urine 1075 1120 1375 Other: Voiding Method Indwelling Catheter Indwelling Catheter Indwelling Catheter # Bowel Movements 0 0 0 ABP, PAP, CO, CI - Last Documented Arterial Blood Pressure 72/72 - Exam General: Lying in bed and does not appear in acute distress. HENT: Supple neck. Respiratory: On nasal cannula. Appears comfortable. Neuro: Is awake and alert, but slow mentation, prolonged latency time to answer questions. Speech and language functions appears normal. Pupils are round, equal and reactive to light. Extraocular muscles appears intact. No facial weakness. 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 He is wiggling his feet. Reflexes: 1+ throughout. No seizure like activity noted. Both feet are bandaged. - Labs CBC & Chem 7: 03/11/23 05:55 03/11/23 05:55 Labs: Abnormal Lab Results - Last 24 Hours (Table) 03/11/23 03/11/23 03/11/23 Range/Units 05:55 05:55 09:16 WBC 10.7 H (3.8-10.6) k/uL RBC 2.85 L (4.30-5.90) m/uL Hgb 7.9 L (13.0-17.5) gm/dL Hct 25.2 L (39.0-53.0) % RDW 16.0 H (11.5-15.5) % Sodium 135 L (137-145) mmol/L BUN 87 H (9-20) mg/dL Creatinine 3.97 H (0.66-1.25) mg/dL POC Glucose (mg/dL) 125 H (70-110) mg/dL Calcium 8.1 L (8.4-10.2) mg/dL 03/11/23 03/11/23 Range/Units 11:25 16:24 WBC (3.8-10.6) k/uL RBC (4.30-5.90) m/uL Hgb (13.0-17.5) gm/dL Hct (39.0-53.0) % RDW (11.5-15.5) % Sodium (137-145) mmol/L BUN (9-20) mg/dL Creatinine (0.66-1.25) mg/dL POC Glucose (mg/dL) 167 H 199 H (70-110) mg/dL Calcium (8.4-10.2) mg/dL Microbiology - Last 24 Hours (Table) 03/10/23 10:12 Gram Stain - Preliminary Bronchial Washings - Left Assessment and Plan Assessment: This is a 63-year-old gentleman who presented to the emergency department on 02/28/2022 since was found on the floor by his father and he had generalized weakness. Patient while he was in observation, had witnessed PEA cardiac arrest possibly about less than 5 minutes. He has Legionella pneumonia. Altered mental status due to septic encephalopathy from pneumonia and metabolic encephalopathy in which had acute on chronic renal failure. Status post cardiopulmonary arrest with downtime < 5 minutes. Patient is status post extubation. Patient is following directions, much improved. Community acquire pneumonia/sepsis due to Legionalla Pneumonia Acute on chronic renal faliure and getting dialysis during this admission--trending down Acute hypoxemic respiratory failure requiring intubation DM Acute rhabdomyolysis--likely since was found down, now normal. Plan: * Patient is status post extubation. He is doing much better. Patient is getting more oriented and examination is improving. Patient still appears to be quite generalized weak. * CT head revealed no acute intracranial abnormality. Mild to moderate generalized brain atrophy and chronic microvascular ischemic changes. I personally reviewed CT head, agree with the findings. There is slight prominence of the ventricles, slightly more than amount of cortical atrophy. Clinical correlation recommended for possible NPH. There is evidence of old lacunar stroke left thalamus. * EEG was performed, which was abnormal due to background slowing of moderate to severe degree. This is suggestive of generalized cerebral dysfunction, as can be seen with toxic metabolic encephalopathy or related to diffuse structural brain abnormality or medication effect. Clinical correlation is recommended. No epileptiform activity was seen. * TSH 1.48, ammonia level < 9, Vitamin B12 1213, folate 5.50 and repeat CK level 63. All tests normal, but folate borderline, we'll start folate 1 mg daily. * I.D. is on board. * Will defer the rest of medical management to the primary team and other specialist. * Discussed with patient's nurse. * Dr. Francisco Lacy to resume neurology service from the morning.
[2023-03-12] MEDS: FUROSEMIDE 100 MG in SODIUM CHLORIDE 0.9% 90 ML IV SCH ×2 (01:25→13:30)
[2023-03-12 04:28] LABS: African American GFR (CKD) 14 (>60 ml/min/1.73 sqM); Anion Gap 13 mmol/L; Blood Urea Nitrogen 97 mg/dL (9-20); Calcium 7.9 mg/dL (8.4-10.2); Carbon Dioxide 23 mmol/L (22-30); Chloride 100 mmol/L (98-107); Glucose 112 mg/dL (74-99); Non-African American GFR(CKD) 12 (>60 ml/min/1.73 sqM); Potassium 5.2 mmol/L (3.5-5.1); Sodium 136 mmol/L (137-145)
[2023-03-12 05:15] LABS: HCT 23.9 % (39.0-53.0); HGB 7.6 gm/dL (13.0-17.5); Hypochromasia Slight; MCH 27.9 pg (25.0-35.0); MCHC 31.8 g/dL (31.0-37.0); MCV 87.5 fL (80.0-100.0); Mean Platelet Volume 8.2; Platelet Count 198 k/uL (150-450); RBC 2.73 m/uL (4.30-5.90); RDW 15.8 % (11.5-15.5); WBC 7.8 k/uL (3.8-10.6)
[2023-03-12 06:32] LABS: Glucose,Whole Blood 117 mg/dL (70-110)
[2023-03-12 06:44] LABS: Glucose,Whole Blood 122 mg/dL (70-110)
[2023-03-12] MEDS: INSULIN ASPART (NovoLOG) 100 UNIT/ML VIAL SQ SCH ×4 (06:46→21:56)
[2023-03-12] MEDS: INSULIN DETEMIR (LEVEMIR) 100 UNIT/ML SYR SQ SCH (06:48)
--- NOTE | 2023-03-12 07:34 | P.PN ---
Subjective Progress Note Date: 03/12/23 Principal diagnosis: Cardiomyopathy/cardiac arrest The patient is a 62-year-old gentleman who was admitted to the hospital after a fall and subsequently he developed right wrist with PEA. Further investigation including an echo was performed and showed severe cardiomyopathy. Troponin was mildly elevated. He was in renal failure. He was anemic. In 03/12/2023 The patient was seen and evaluated. Currently he is stable. He is on Lasix drip by the nephrology service. He is on metoprolol only because his pressure has been on the low side. He still anemic. He still renal failure. The decision to be made regarding permanent hemodialysis catheter. From the Cardec standpoint of view, I would continue the current medical regimen to renal the patient need permanent dialysis or not. Definitely heart catheterization need to be done in the next few days or as an outpatient to rule out severe underlying coronary artery disease for the cardiomyopathy. Meanwhile will c ontinue the current medical regimen. On examination he does have regular rhythm with diminished breathing sounds bilaterally and bilateral lower extremity is edema noted. Assessment History of cardiac arrest as described above Cardiomyopathy of unknown etiology Renal failure Anemia Multiple comorbid conditions Plan Continue the current dose of beta rhys Consider maximize medical treatment for cardiomyopathy Procedure coronary angiogram Follow-up with the patient Objective - Vital Signs Vital signs: Vital Signs Temp 98.5 F 03/12/23 05:00 Pulse 96 03/12/23 07:00 Resp 17 03/12/23 07:00 BP 125/75 03/12/23 07:00 Pulse Ox 88 L 03/12/23 07:00 FiO2 40 03/11/23 08:05 Intake & Output 03/11/23 03/12/23 03/12/23 18:59 06:59 18:59 Intake Total 1454.833 139.167 Output Total 1575 1550 75 Balance -120.167 -1410.833 -75 Intake: IV 180 40 Invasive Line 10 40 30 Invasive Line 9 40 10 Levofloxacin 500Mg-D5w 100 Pmx 500 mg In Dextrose/ Water 1 100ml.bag @ 100 mls/hr IVPB Q48H [facility] Rx#: [id number] Intake, IV Titration 95.833 99.167 Amount Furosemide 100 mg In 95.833 99.167 Sodium Chloride 0.9% 90 ml @ 10 MG/HR 10 mls/hr IV .Q10H [facility] Rx#: [id number] Oral 1070 Tube Feeding 79 Other 30 Output: Urine 1575 1550 75 Other: Voiding Method Indwelling Catheter Indwelling Catheter # Bowel Movements 1 0 ABP, PAP, CO, CI - Last Documented Arterial Blood Pressure 72/72 - Labs CBC & Chem 7: 03/12/23 04:52 03/12/23 03:53 Labs: Abnormal Lab Results - Last 24 Hours (Table) 03/11/23 03/11/23 03/11/23 Range/Units 09:16 11:25 16:24 RBC (4.30-5.90) m/uL Hgb (13.0-17.5) gm/dL Hct (39.0-53.0) % RDW (11.5-15.5) % Sodium (137-145) mmol/L Potassium (3.5-5.1) mmol/L BUN (9-20) mg/dL Creatinine (0.66-1.25) mg/dL Glucose (74-99) mg/dL POC Glucose (mg/dL) 125 H 167 H 199 H (70-110) mg/dL Calcium (8.4-10.2) mg/dL 03/11/23 03/12/23 03/12/23 Range/Units 21:12 03:53 04:52 RBC 2.73 L (4.30-5.90) m/uL Hgb 7.6 L (13.0-17.5) gm/dL Hct 23.9 L (39.0-53.0) % RDW 15.8 H (11.5-15.5) % Sodium 136 L (137-145) mmol/L Potassium 5.2 H (3.5-5.1) mmol/L BUN 97 H (9-20) mg/dL Creatinine 4.84 H (0.66-1.25) mg/dL Glucose 112 H (74-99) mg/dL POC Glucose (mg/dL) 166 H (70-110) mg/dL Calcium 7.9 L (8.4-10.2) mg/dL 03/12/23 03/12/23 Range/Units 06:30 06:43 RBC (4.30-5.90) m/uL Hgb (13.0-17.5) gm/dL Hct (39.0-53.0) % RDW (11.5-15.5) % Sodium (137-145) mmol/L Potassium (3.5-5.1) mmol/L BUN (9-20) mg/dL Creatinine (0.66-1.25) mg/dL Glucose (74-99) mg/dL POC Glucose (mg/dL) 117 H 122 H (70-110) mg/dL Calcium (8.4-10.2) mg/dL Microbiology - Last 24 Hours (Table) 03/10/23 10:12 Gram Stain - Preliminary Bronchial Washings - Left
--- NOTE | 2023-03-12 07:36 | XR ---
EXAMINATION TYPE: XR chest 1V portable DATE OF EXAM: 03/12/2023 HISTORY: Shortness of breath. COMPARISON: 03/11/2023 TECHNIQUE: Single view of the chest is submitted. FINDINGS: Demonstrated are scattered senescent parenchymal change. Left lower lobe opacity persists and may have increased slightly in the interval and may reflect effu manuel, atelectasis and/or infiltrate. Mitral annular calcifications seen. NG tube has been removed. The heart is stable. Hilar and mediastinal structures are within normal limits. Degenerative changes are seen of the dorsal spine. IMPRESSION: 1. Left lower lobe opacity persists and may have increased slightly in the interval and may reflect effusion, atelectasis and/or infiltrate.
[2023-03-12] MEDS: allopurinoL 100 MG TAB PO SCH (09:02)
[2023-03-12] MEDS: SODIUM BICARBONATE TAB 650 MG TAB PO SCH ×2 (09:02→21:55)
[2023-03-12] MEDS: METOPROLOL TARTRATE 25 MG TAB PO SCH ×3 (09:02→21:55)
[2023-03-12] MEDS: HEPARIN SODIUM,PORCINE 5,000 UNIT/ML 1 ML VIAL SQ SCH ×2 (09:02→21:55)
[2023-03-12] MEDS: FOLIC ACID 1 MG TAB PO SCH (09:02)
[2023-03-12] MEDS: PANTOPRAZOLE 40 MG/10 ML VIAL IVP SCH (09:02)
[2023-03-12] MEDS: ANIDULAFUNGIN 100 MG in SODIUM CHLORIDE 0.9% 100 ML IVPB SCH (09:02)
[2023-03-12] MEDS: DARBEPOETIN ALFA 40 MCG/0.4 ML SYRINGE SQ SCH (09:03)
--- NOTE | 2023-03-12 09:55 | US ---
EXAMINATION TYPE: US chest DATE OF EXAM: 03/12/2023 COMPARISON: NONE CLINICAL INDICATION: Male, 62 years old with history of left chest; left chest TECHNIQUE: Targeted ultrasound of the posterior lower left hemithorax EXAM MEASUREMENTS: No pleural effusion seen on left chest. Pulmonologists are able to review the images in the patient?s EMR. IMPRESSIONS: As above
[2023-03-12 11:26] LABS: Glucose,Whole Blood 111 mg/dL (70-110)
--- NOTE | 2023-03-12 11:28 | P.PN ---
Subjective Patient is seen for follow-up for acute kidney injury on top of chronic kidney disease. Currently maintained on Lasix drip with 24 hour urine output at 3.1 L. Weight has decreased Last hemodialysis on 03/09/2023. Serum creatinine increased to 4.8 today. Edema has been decreasing. No complaints of shortness of breath Objective - Vital Signs Vital signs: Vital Signs Temp 98.5 F 03/12/23 05:00 Pulse 98 03/12/23 11:00 Resp 16 03/12/23 11:00 BP 128/85 03/12/23 11:00 Pulse Ox 93 L 03/12/23 11:00 FiO2 40 03/11/23 08:05 Intake & Output 03/11/23 03/12/23 03/12/23 18:59 06:59 18:59 Intake Total 1454.833 139.167 10 Output Total 1575 1550 525 Balance -120.167 -1410.833 -515 Intake: IV 180 40 10 Invasive Line 10 40 30 10 Invasive Line 9 40 10 Levofloxacin 500Mg-D5w 100 Pmx 500 mg In Dextrose/ Water 1 100ml.bag @ 100 mls/hr IVPB Q48H [facility] Rx#: [id number] Intake, IV Titration 95.833 99.167 Amount Furosemide 100 mg In 95.833 99.167 Sodium Chloride 0.9% 90 ml @ 10 MG/HR 10 mls/hr IV .Q10H [facility] Rx#: [id number] Oral 1070 Tube Feeding 79 Other 30 Output: Urine 1575 1550 525 Other: Voiding Method Indwelling Catheter Indwelling Catheter # Bowel Movements 1 0 0 ABP, PAP, CO, CI - Last Documented Arterial Blood Pressure 72/72 - Exam Patient is awake, comfortable, no acute distress Answering questions appropriately Examination of the heart S1 and S2 Examination of the lungs bilateral breath sounds are heard, decrease at the bases Abdomen is soft nontender Examination of lower extremities shows 2+ edema, decreasing. Legs are wrapped - Labs CBC & Chem 7: 03/12/23 04:52 03/12/23 03:53 Labs: Abnormal Lab Results - Last 24 Hours (Table) 03/11/23 03/11/23 03/11/23 Range/Units 11:25 16:24 21:12 RBC (4.30-5.90) m/uL Hgb (13.0-17.5) gm/dL Hct (39.0-53.0) % RDW (11.5-15.5) % Sodium (137-145) mmol/L Potassium (3.5-5.1) mmol/L BUN (9-20) mg/dL Creatinine (0.66-1.25) mg/dL Glucose (74-99) mg/dL POC Glucose (mg/dL) 167 H 199 H 166 H (70-110) mg/dL Calcium (8.4-10.2) mg/dL 03/12/23 03/12/23 03/12/23 Range/Units 03:53 04:52 06:30 RBC 2.73 L (4.30-5.90) m/uL Hgb 7.6 L (13.0-17.5) gm/dL Hct 23.9 L (39.0-53.0) % RDW 15.8 H (11.5-15.5) % Sodium 136 L (137-145) mmol/L Potassium 5.2 H (3.5-5.1) mmol/L BUN 97 H (9-20) mg/dL Creatinine 4.84 H (0.66-1.25) mg/dL Glucose 112 H (74-99) mg/dL POC Glucose (mg/dL) 117 H (70-110) mg/dL Calcium 7.9 L (8.4-10.2) mg/dL 03/12/23 Range/Units 06:43 RBC (4.30-5.90) m/uL Hgb (13.0-17.5) gm/dL Hct (39.0-53.0) % RDW (11.5-15.5) % Sodium (137-145) mmol/L Potassium (3.5-5.1) mmol/L BUN (9-20) mg/dL Creatinine (0.66-1.25) mg/dL Glucose (74-99) mg/dL POC Glucose (mg/dL) 122 H (70-110) mg/dL Calcium (8.4-10.2) mg/dL Microbiology - Last 24 Hours (Table) 03/10/23 10:12 Gram Stain - Preliminary Bronchial Washings - Left Assessment and Plan Assessment: 1. Acute kidney injury on top of chronic kidney disease versus progression of underlying chronic kidney disease. Started hemodialysis 03/01/2023, last hemodialysis on 1117. Urine output has picked up and currently maintained on Lasix drip. 2. Anion gap metabolic acidosis secondary to advanced renal failure and lactic acidosis, status post bicarb drip and improved with dialysis. 3. Status post cardiac arrest, PEA, downtime about 5 minutes 4. Mild rhabdomyolysis 5. CK D mineral bone disorder 6. CK D stage IV. Etiology of CK D is biopsy proven diabetic kidney disease and severe interstitial fibrosis. Baseline creatinine around 3-3.4 mg/dL Plan: Decrease Lasix drip to 5 mg an hour Repeat labs in a.m. if renal function continues to worsen patient will need a permacath for hemodialysis tomorrow.
--- NOTE | 2023-03-12 11:58 | P.PN ---
Subjective Progress Note Date: 03/12/23 Principal diagnosis: Sepsis and Legionella pneumonia Patient is a 62-year-old male with a past medical history significant for diabetes mellitus hypertension renal insufficiency patient was brought into the ER concerning for weakness and did have some respiratory symptoms patient did have a fever and worsening respiratory status requiring intubation and admission to the ICU the patient urine for digital antigen came back positive evening of 03/01/2023. Patient is status post bronchoscopy and lavage for mucus plugging on 03/10/2023 On today's evaluation that is 03/12/2023, the patient remains to be afebrile, the patient is breathing comfortably on room air and denies any shortness of breath, the patient denies chest pain and no worsening cough , patient denies abdominal pain, no nausea/vomiting and diarrhea has slowed fecal management system IS out Patient white count normalized to 7.8 creatinine is 4.84, blood and sputum cultures has been negative, urine for Legionella antigen is positive, stool for C. diff is negative, BAL cultures negative so far Objective - Vital Signs Vital signs: Vital Signs Temp 98.5 F 03/12/23 05:00 Pulse 98 03/12/23 11:00 Resp 16 03/12/23 11:00 BP 128/85 03/12/23 11:00 Pulse Ox 93 L 03/12/23 11:00 FiO2 40 03/11/23 08:05 Intake & Output 03/11/23 03/12/23 03/12/23 18:59 06:59 18:59 Intake Total 1454.833 139.167 10 Output Total 1575 1550 525 Balance -120.167 -1410.833 -515 Weight 82.2 kg Intake: IV 180 40 10 Invasive Line 10 40 30 10 Invasive Line 9 40 10 Levofloxacin 500Mg-D5w 100 Pmx 500 mg In Dextrose/ Water 1 100ml.bag @ 100 mls/hr IVPB Q48H [facility] Rx#: [id number] Intake, IV Titration 95.833 99.167 Amount Furosemide 100 mg In 95.833 99.167 Sodium Chloride 0.9% 90 ml @ 10 MG/HR 10 mls/hr IV .Q10H [facility] Rx#: [id number] Oral 1070 Tube Feeding 79 Other 30 Output: Urine 1575 1550 525 Other: Voiding Method Indwelling Catheter Indwelling Catheter # Bowel Movements 1 0 0 ABP, PAP, CO, CI - Last Documented Arterial Blood Pressure 72/72 - Exam GENERAL DESCRIPTION: Middle-aged male lying in bed in no distress RESPIRATORY SYSTEM: Unlabored breathing , decreased breath sound at the base HEART: S1 S2 regular rate and rhythm , ABDOMEN: Soft , no tenderness EXTREMITIES: No edema feet - Labs CBC & Chem 7: 03/12/23 04:52 03/12/23 03:53 Labs: Abnormal Lab Results - Last 24 Hours (Table) 03/11/23 03/11/23 03/12/23 Range/Units 16:24 21:12 03:53 RBC (4.30-5.90) m/uL Hgb (13.0-17.5) gm/dL Hct (39.0-53.0) % RDW (11.5-15.5) % Sodium 136 L (137-145) mmol/L Potassium 5.2 H (3.5-5.1) mmol/L BUN 97 H (9-20) mg/dL Creatinine 4.84 H (0.66-1.25) mg/dL Glucose 112 H (74-99) mg/dL POC Glucose (mg/dL) 199 H 166 H (70-110) mg/dL Calcium 7.9 L (8.4-10.2) mg/dL 03/12/23 03/12/23 03/12/23 Range/Units 04:52 06:30 06:43 RBC 2.73 L (4.30-5.90) m/uL Hgb 7.6 L (13.0-17.5) gm/dL Hct 23.9 L (39.0-53.0) % RDW 15.8 H (11.5-15.5) % Sodium (137-145) mmol/L Potassium (3.5-5.1) mmol/L BUN (9-20) mg/dL Creatinine (0.66-1.25) mg/dL Glucose (74-99) mg/dL POC Glucose (mg/dL) 117 H 122 H (70-110) mg/dL Calcium (8.4-10.2) mg/dL 03/12/23 Range/Units 11:25 RBC (4.30-5.90) m/uL Hgb (13.0-17.5) gm/dL Hct (39.0-53.0) % RDW (11.5-15.5) % Sodium (137-145) mmol/L Potassium (3.5-5.1) mmol/L BUN (9-20) mg/dL Creatinine (0.66-1.25) mg/dL Glucose (74-99) mg/dL POC Glucose (mg/dL) 111 H (70-110) mg/dL Calcium (8.4-10.2) mg/dL Microbiology - Last 24 Hours (Table) 03/10/23 10:12 Gram Stain - Preliminary Bronchial Washings - Left Assessment and Plan (1) Legionella pneumonia Current Visit: Yes Status: Acute Code(s): A48.1 - LEGIONNAIRES' DISEASE SNOMED Code(s): 631770850 (2) Sepsis Current Visit: Yes Status: Acute Code(s): A41.9 - SEPSIS, UNSPECIFIED ORGANISM SNOMED Code(s): 08602871 Plan: 1patient presented to hospital with sepsis in this patient with a fever tachycardia hypotension source is likely left lower lobe pneumonia in this patient with weakness lethargy and decreased level of responsiveness and the question of community-acquired versus aspiration pneumonia 2- leukocytosis possible oropharyngeal candidiasis, patient white count has normalized with eraxis we will continue the patient on Eraxis , transition to n ystatin swish and swallow once mentation or makes improves 3-urine for Legionella antigen is positive, sputum cultures are currently negative for any resistant pathogen , patient did have some clinical improvement and will continue with Levaquin to finish his course of therapy Dictation was produced using achvr dictation software. please excuse any grammatical, word or spelling errors. Time with Patient: Less than 30
--- NOTE | 2023-03-12 12:12 | P.PN ---
Subjective Progress Note Date: 03/12/23 62 year old M with PMH of CKD, hypertension, gout, diabetes mellitus presents to the ED after being found down. Patient is lethargic and sleepy and majority of history is provided by his father. Patient is single, lives alone, takes care of his ADLs and IADL's and normally very active. Father states he has been dealing with a cold over the past week. Symptoms include cough, rhinorrhea, malaise, diarrhea, nausea and vomiting, poor appetite. Last time seen normal was yesterday at 6:30PM when he went to bed. Found down this morning by his father, apparently tried to use the washroom last night, unable to make it to bed, laid on the floor all night. EMS was subsequently called. In the ED, he underwent extensive workup. Tmax 100.7F. HR in the 90s. BP 92/47. 92% on RA. CBC showed leukocytosis of 11.1, hemoglobin of 8.3 and platelet count 142. INR 1.2 CMP showed potassium of 5.4, bicarb 10, BUN 113, creatinine 8.47, glucose 324, total bilirubin 2. Lactic acid 2.1. CPK 1240. Troponin 0.457. Acetone negative. Influenza, RSV, COVID-19 negative. Chest x-ray reviewed by me showed large left sided PNA. EKG showed sinus rhythm with no ST elevation. CODE BLUE was called yesterday. Patient was found to be in PEA arrest. He was given multiple amps of sodium bicarb and epinephrine. Patient was intubated. ROSC was achieved and he was transferred to the ICU. Dr. Lacy, Dr. Juarez and Dr. Simon was contacted. Emergent hemodialysis access was obtained and patient was started on dialysis. Patient was intubated and transferred to the ICU. He maintained on Levophed which was eventually weaned off. Echocardiogram as done which showed ejection fraction 20-25% with moderate TR and MR and therefore cardiology was consulted. Renal ultrasound showed gallbladder wall thickening but no signs of hydrone phrosis or nephrolithiasis. His legionella urine antigen Positive and he was subsequently transitioned to Levaquin. Patient was not doing well with sedation holidays and neurology was subsequently consulted. He underwent a head CT which showed chronic micro vascular ischemic changes and an EEG which showed moderate to severe background slowing. Left upper extremity venous Doppler showed no venus dence of DVT but did show cephalic vein superficial thrombosis. He was successfully extubated on 03/08. Patient developed mucous plugging with white out on the left. He subsequently underwent bronchoscopy with Bronchoalveolar lavage on 03/10. 03/12 Patient was seen and examined. Wanting to go home. CBC Hg 7.6. CMP Na 136, K 5.2, BUN 97, Cr 4.84, glu 112, Ca 7.9. Underwent bronchoscopy with BAL on 03/10 which showed mucous plug in the LLL and L mainstem bronchus. BAL cultures are pending. CXR reviewed today shows LLL opacity. Antibiotics include Anidulafungin and Levaquin. Currently on a Lasix drip running at 10 mg/hr. Negative 1531 cc fluid balance over the past 24H. Weight on admission 71.214 kg - 82.2 kg. Metoprolol added by Cardiology on 03/09, he will need a coronary angiogram at some point. Vital signs reviewed General: nontoxic, no distress, appears at stated age Cardiovascular: S1S2 reg, no murmur Lungs:Decreased bs bilateral, no rhonchi, no rales , no accessory muscle use Abdominal: soft, nontender to palpation, no guarding, no appreciable organomegaly Ext: no gross muscle atrophy, diffuse anasarca, no contractures Neuro: moving all 4 extremities independently. Psych: Awake, alert, appropriate affect Acute systolic cardiomyopathy with ejection fraction 20-25% Troponin elevation PEA arrest Acute hypoxic respiratory failure, extubated 03/09 Legionaires PNA with septic shock, now resolved Left mucus plug, s/p bronch and BAL 03/10 Oral pharyngeal candidiasis Acute metabolic encephalopathy Acute kidney injury on chronic kidney disease Normocytic anemia Diabetes mellitus with hyperglycemia Chronic conditions: Hypertension, gout Resolved: Metabolic acidosis, Hyperkalemia, Hypokalemia, Rhabdomyolysis, Thrombocytopenia Based on my assessment of this patient, this patient meets a high complexity level of care. Patient has an acute diagnosis of septic shock secondary to Legionaire PNA that poses a threat to life or bodily function. Currently off pressors. Extubated on 03/09. Currently on Anidulafungin and Levaquin. Diuresing with Lasix drip. Acute systolic cardiomyopathy: EF 20-25% per Echocardiogram. Lasix drip 10 mg/hr. Monitor electrolytes and renal function. Metoprolol 25 mg PO TID. Strict intake/outtake. Daily weights. Will need coronary angiogram. Cardiology on board. Troponin elevation: Likely due to demand ischemia. Trop flat. Echocardiogram as above. Cardiology on board. PEA arrest Acute hypoxic respiratory failure: Extubated 03/09 Legionairsonali PNA with septic shock: Septic shock now resolved. Levaquin 500 mg IV Q48H D#10, Zosyn 3.375 g IV Q8H now discontinued on 03/01-03/05 Left mucus plug: Status post bronch and BAL 03/10. Aggressive pulmonary toilet. Oral pharyngeal candidiasis: Eraxis 100 mg IV piggyback daily D #7 Acute metabolic encephalopathy: CT head negative. B12, TSH, Ammonia wnl. Acute kidney injury on chronic kidney disease: Lasix drip as above. Calcitriol 0.25 mcg PO MWF. Aranesp 40 mcg SQ weekly. Midodrine 2.5 mg PO BID PRN for hypotension. Sodium bicarbonate 650 mg PO BID. Nephrology on board. Normocytic anemia: Transfuse if Hg < 7. Daily CBC. Diabetes mellitus with hyperglycemia: A1c 8.2. ISS. Levemir 10 units QD. Plans for repeat labs tomorrow. Plans for permacath if renal function or Uoutput worsened. Will likely need cath prior to discharge. CODE STATUS: FULL CODE. DVT Prophylaxis: Heparin SQ. GI Prophylaxis: Protonix IV Designated medical POA if patient is not able to make medical decisions for themselves: Father I have reviewed the following recruitment consultant notes: Pulm, ID, Neuro, Cardio, Nephro note. I have reviewed the results of the following tests: CBC, BMP. I have ordered the following tests: CBC, BMP, CXR. I have discussed the care of this patient with the following independent hist orian: I have independently interpreted the following test below: CXR as above. I have discussed the management of this patient with the following physician: This patient has a high risk of morbidity due to the following reasons: This patient meets a high level of care for the following reasons: Patient requires IV lasix which requires intensive monitoring for renal toxicity. Objective - Vital Signs Vital signs: Vital Signs Temp 98.5 F 03/12/23 05:00 Pulse 96 03/12/23 07:00 Resp 17 03/12/23 07:00 BP 125/75 03/12/23 07:00 Pulse Ox 88 L 03/12/23 07:00 FiO2 40 03/11/23 08:05 Intake & Output 03/11/23 03/12/23 03/12/23 18:59 06:59 18:59 Intake Total 1454.833 139.167 Output Total 1575 1550 75 Balance -120.167 -1410.833 -75 Intake: IV 180 40 Invasive Line 10 40 30 Invasive Line 9 40 10 Levofloxacin 500Mg-D5w 100 Pmx 500 mg In Dextrose/ Water 1 100ml.bag @ 100 mls/hr IVPB Q48H [facility] Rx#: [id number] Intake, IV Titration 95.833 99.167 Amount Furosemide 100 mg In 95.833 99.167 Sodium Chloride 0.9% 90 ml @ 10 MG/HR 10 mls/hr IV .Q10H [facility] Rx#: [id number] Oral 1070 Tube Feeding 79 Other 30 Output: Urine 1575 1550 75 Other: Voiding Method Indwelling Catheter Indwelling Catheter # Bowel Movements 1 0 ABP, PAP, CO, CI - Last Documented Arterial Blood Pressure 72/72 - Labs CBC & Chem 7: 03/12/23 04:52 03/12/23 03:53 Labs: Abnormal Lab Results - Last 24 Hours (Table) 03/11/23 03/11/23 03/11/23 Range/Units 09:16 11:25 16:24 RBC (4.30-5.90) m/uL Hgb (13.0-17.5) gm/dL Hct (39.0-53.0) % RDW (11.5-15.5) % Sodium (137-145) mmol/L Potassium (3.5-5.1) mmol/L BUN (9-20) mg/dL Creatinine (0.66-1.25) mg/dL Glucose (74-99) mg/dL POC Glucose (mg/dL) 125 H 167 H 199 H (70-110) mg/dL Calcium (8.4-10.2) mg/dL 03/11/23 03/12/23 03/12/23 Range/Units 21:12 03:53 04:52 RBC 2.73 L (4.30-5.90) m/uL Hgb 7.6 L (13.0-17.5) gm/dL Hct 23.9 L (39.0-53.0) % RDW 15.8 H (11.5-15.5) % Sodium 136 L (137-145) mmol/L Potassium 5.2 H (3.5-5.1) mmol/L BUN 97 H (9-20) mg/dL Creatinine 4.84 H (0.66-1.25) mg/dL Glucose 112 H (74-99) mg/dL POC Glucose (mg/dL) 166 H (70-110) mg/dL Calcium 7.9 L (8.4-10.2) mg/dL 03/12/23 03/12/23 Range/Units 06:30 06:43 RBC (4.30-5.90) m/uL Hgb (13.0-17.5) gm/dL Hct (39.0-53.0) % RDW (11.5-15.5) % Sodium (137-145) mmol/L Potassium (3.5-5.1) mmol/L BUN (9-20) mg/dL Creatinine (0.66-1.25) mg/dL Glucose (74-99) mg/dL POC Glucose (mg/dL) 117 H 122 H (70-110) mg/dL Calcium (8.4-10.2) mg/dL Microbiology - Last 24 Hours (Table) 03/10/23 10:12 Gram Stain - Preliminary Bronchial Washings - Left
--- NOTE | 2023-03-12 14:10 | P.PN ---
Subjective Progress Note Date: 03/12/23 I am following-up with patient since 03/05/2023 and since then was seen by Dr. Naylor. Please refer to his notes for further details. He was sitting in a chair and denies of headache and feels he will not leave this hospital anytime soon and feels down. Objective - Vital Signs Vital signs: Vital Signs Temp 98.5 F 03/12/23 05:00 Pulse 98 03/12/23 11:00 Resp 16 03/12/23 11:00 BP 128/85 03/12/23 11:00 Pulse Ox 93 L 03/12/23 11:00 FiO2 40 03/11/23 08:05 Intake & Output 03/11/23 03/12/23 03/12/23 18:59 06:59 18:59 Intake Total 1454.833 139.167 10 Output Total 1575 1550 525 Balance -120.167 -1410.833 -515 Weight 82.2 kg Intake: IV 180 40 10 Invasive Line 10 40 30 10 Invasive Line 9 40 10 Levofloxacin 500Mg-D5w 100 Pmx 500 mg In Dextrose/ Water 1 100ml.bag @ 100 mls/hr IVPB Q48H [facility] Rx#: [id number] Intake, IV Titration 95.833 99.167 Amount Furosemide 100 mg In 95.833 99.167 Sodium Chloride 0.9% 90 ml @ 10 MG/HR 10 mls/hr IV .Q10H [facility] Rx#: [id number] Oral 1070 Tube Feeding 79 Other 30 Output: Urine 1575 1550 525 Other: Voiding Method Indwelling Catheter Indwelling Catheter Indwelling Catheter # Bowel Movements 1 0 0 ABP, PAP, CO, CI - Last Documented Arterial Blood Pressure 72/72 - Exam General: Sitting in a recliner chair and is not in acute distress. Psych: Flat affect. Neuro: Patient examination is limited because his cooperation. His urine to dissolve in the year and he kept on repeating that I don't care u anant asking questions. The pupils are round equal reactive to light. Extra ocular movement the patient is tracking on the right and left without any nystagmus. No facial weakness. No dysarthria. Motor the strength is unable to assess individual muscle because his cooperation. - Labs CBC & Chem 7: 03/12/23 04:52 03/12/23 03:53 Labs: Abnormal Lab Results - Last 24 Hours (Table) 03/11/23 03/11/23 03/12/23 Range/Units 16:24 21:12 03:53 RBC (4.30-5.90) m/uL Hgb (13.0-17.5) gm/dL Hct (39.0-53.0) % RDW (11.5-15.5) % Sodium 136 L (137-145) mmol/L Potassium 5.2 H (3.5-5.1) mmol/L BUN 97 H (9-20) mg/dL Creatinine 4.84 H (0.66-1.25) mg/dL Glucose 112 H (74-99) mg/dL POC Glucose (mg/dL) 199 H 166 H (70-110) mg/dL Calcium 7.9 L (8.4-10.2) mg/dL 03/12/23 03/12/23 03/12/23 Range/Units 04:52 06:30 06:43 RBC 2.73 L (4.30-5.90) m/uL Hgb 7.6 L (13.0-17.5) gm/dL Hct 23.9 L (39.0-53.0) % RDW 15.8 H (11.5-15.5) % Sodium (137-145) mmol/L Potassium (3.5-5.1) mmol/L BUN (9-20) mg/dL Creatinine (0.66-1.25) mg/dL Glucose (74-99) mg/dL POC Glucose (mg/dL) 117 H 122 H (70-110) mg/dL Calcium (8.4-10.2) mg/dL 03/12/23 Range/Units 11:25 RBC (4.30-5.90) m/uL Hgb (13.0-17.5) gm/dL Hct (39.0-53.0) % RDW (11.5-15.5) % Sodium (137-145) mmol/L Potassium (3.5-5.1) mmol/L BUN (9-20) mg/dL Creatinine (0.66-1.25) mg/dL Glucose (74-99) mg/dL POC Glucose (mg/dL) 111 H (70-110) mg/dL Calcium (8.4-10.2) mg/dL Assessment and Plan Assessment: This is a 63-year-old gentleman who presented to the emergency department on 02/28/2022 since was found on the floor by his father and he had generalized weakness. Patient while he was in observation, had witnessed PEA cardiac arrest possibly about less than 5 minutes. He has Legionella pneumonia. Altered mental status due to septic encephalopathy from pneumonia and metabolic encephalopathy in which had acute on chronic renal failure--mentation is improving. Status post cardiopulmonary arrest with downtime < 5 minutes. Patient is status post extubation. Patient is following directions, much improved. Community acquire pneumonia/sepsis due to Legionalla Pneumonia Acute on chronic renal faliure and getting dialysis during this admission--trending down Acute hypoxemic respiratory failure requiring intubation DM Acute rhabdomyolysis--likely since was found down, now normal. Plan: * Patient is status post extubation. He is doing much better. Patient is getting more oriented and examination is improving. Patient still appears to be quite generalized weak that is reported by Dr. Naylor. Upon seeing him patient was feeling down and he stated that he is not getting get out of the hospital and kept on saying "I do not care any more". If patient has any worsening depression, new suicidal or homocidal thoughts or plans recommend consulting psychiatry team. I spoke with primary regarding this and they stated they will re-evaluate the patient tomorrow. * CT head revealed no acute intracranial abnormality. Mild to moderate generalized brain atrophy and chronic microvascular ischemic changes. I personally reviewed CT head, agree with the findings. There is slight prominence of the ventricles, slightly more than amount of cortical atrophy. Clinical correlation recommended for possible NPH. There is evidence of old lacunar stroke left thalamus. * EEG was performed, which was abnormal due to background slowing of moderate to severe degree. This is suggestive of generalized cerebral dysfunction, as can be seen with toxic metabolic encephalopathy or related to diffuse structural brain abnormality or medication effect. Clinical correlation is recommended. No epileptiform activity was seen. * TSH 1.48, ammonia level < 9, Vitamin B12 1213, folate 5.50 and repeat CK level 63. All tests normal, but folate borderline, we'll start folate 1 mg daily. * I.D. is on board. * Will defer the rest of medical management to the primary team and other specialist. * I updated the patient's primary team. Time with Patient: Less than 30
--- NOTE | 2023-03-12 14:17 | P.PN ---
Subjective Progress Note Date: 03/12/23 Principal diagnosis: Pulseless electrical activity cardiac arrest I am seeing this patient in new consultation today 03/01/2023 in the intensive care unit, after the patient had a witnessed PEA cardiac arrest while on the Observation unit. Patient is a 62-year-old white male with past medical history significant for diabetes mellitus, diabetic foot ulcers, hypertension, hype rlipidemia, iron deficiency anemia, chronic kidney disease. Patient is currently sedated and intubated on the mechanical ventilator. He was admitted yesterday morning, after being found on the floor by his father. Apparently, the patient denied hitting his head or losing consciousness. Patient does have diabetes mellitus, and his blood sugars had been running high at home. Chest x-ray on admission showed a left lower lobe infiltrate consistent with community acquired pneumonia. Patient did have a fever with a T-max of 100.7F. Apparently, after being admitted to the observation unt, the patient was noted to have low blood pressure. The patient was given 1 L normal saline bolus and 5 amps sodium bicarb. Soon after, the patient had a cardiac arrest. Presenting rhythm was PEA. Patient had a limited downtime of less than 5 minutes. He received 1 mg of epinephrine. Rapid sequence intubation was performed. The patient was then transferred to the intensive care unit. Dr. Lacy did come in and place a left subclavian central line catheter and a right wrist arterial line. Patient was also noted to be in acute renal failure. He did have a right femoral hemodialysis catheter placed earlier, and is currently undergoing emergent hemodialysis. Patient is currently in the intensive care unit, intubated to the mechanical ventilator. He is sedated on propofol which is currently infusing at 40 mcg/kg/m. He is synchronous with the mechanical ventilator. Postintubation ABG shows a pO2 greater than 400, pCO2 27, pH of 7.43, this was done on ventilator settings of assist control, respiratory rate 22, tidal volume 500, FiO2 100%, and PEEP of 5. Patient's FiO2 was dropped to 50%. Peak pressures 27. Post intubation chest x-ray shows the endotracheal tube 4 cm above the anika. Oral gastric tube could be advanced 5 cm. There is a persistent left lower lobe infiltrate. Most recent CBC from yesterday evening showed a WBC count of 7.8, hemoglobin 7.1, hematocrit 22.7, platelets 120. No obvious acute blood loss was noted. Most recent available BMP shows sodium 140, potassium 4.6, chloride 107, serum bicarb 15, BUN 107, creatinine 7.82, glucose 282. Acetone negative. LFTs not elevated. CPK 1240. Currently, 3 A sodium bicarb in D5W is infusing at 100 ML's per hour. There is also normal saline infusing at 130 ML's per hour. Patient is currently anuric. Troponins elevated at 0.457, 0.388, and 0.422 respectively. ECG shows normal sinus rhythm without any obvious acute ischemic changes. Urinalysis not concerning for UTI. Lactic acid level was elevated at 4 is down 1.6. Negative for influenza, RSV, COVID-19. Patient was started on empiric antibiotics in the form of ceftriaxone and azithromycin. Currently afebrile. Patient's condition is currently critical, moderate in the intensive care unit. On 03/10/2023, the patient is resting comfortably. Breathing is nonlabored and the patient is on 4 L of oxygen by nasal cannula with a pulse ox of 97%. He has a IV daily for enteral feeding for nutritional support. His chest x-ray from today is showing significant volume loss in the left lung. Suspect mucus plugging as the patient has of optimal ability to do adequate pulmonary toileting. Based on that, the plan was to do a bedside bronchoscopy for ther apeutic airway suctioning. . It is possible also that there may be some limited pleural effusion and left lung. The patient was echoes at 12.3, hemoglobin is 8.6, platelet count is 175, BUN is at 75 with a creatinine of 3.06. Sodium is at 133. Last hemodialysis session was yesterday. Note that the patient had a Legionella pneumonia in the left lower lobe and the patient continued to have a persistent consolidation of the left lung base. He remains on Levaquin. She remains on Eraxis. Infectious diseases on the case. He is on no pressors at this point in time. On Levemir insulin, 15 units at bedtime and 10 units in the morning. Is also on NovoLog siding scale coverage. He remains on metoprolol 25 mg 3 times a day.. Last hemodialysis session was yesterday and the patient is producing adequate amount of urine output for the time being. . On 03/11/2023, the patient is post bronchoscopy. The repeat chest x-ray was done today and the patient has ongoing consolidation of the left lung base related to residual pneumonia. Is improvement in volume status examination of the left lung. He remains on oxygen at 4 L/m nasal cannula. He continues to receive enteral feeding for nutritional support. He is still weak and having episodes of confusion. Is communicating for now. He has profound motor weakness in all 4 extremities. He remains on Levaquin. No nausea. No abdominal pain or distention. He is producing urine output. No plans for dialysis today. He has of 87 with a creatinine of 3.97 and sodium is 135. WBC count 10.7 with a hemoglobin of 7.9. Oxygenation is further improved. The patient's current on room air oxygen with a pulse ox of 93%. He is on Levemir insulin 10 units in addition to sliding scale coverage. Heparin subcu for prophylaxis. Patient was reevaluated today on 03/12/2023, patient remains in the ICU, continues to have a significant left lower lobe consolidation. Remains on Lasix drip at 10 mg per hour, patient has excellent urine output, -3 L in the last 24 hours. Patient remains on Eraxis and on Levaquin. Ultrasound of the chest was ordered today to consider left-sided thoracentesis if there is enough fluid to drain. His BUN is 97 creatinine 4.84, his last dialysis was on 03/09 may be considered for hemodialysis catheter placement. Patient is wondering when he could go home, and I explained to them that he is not quite ready continues to have many issues to address. And he needs to BE cleared by all the consultants. Continues to have chronic wounds in both feet. Continues to be followed by many consultants. WBC count today is 7.8 hemoglobin 7.6 electrolytes are normal BUN is 97 creatinine 4.84. Ultrasound of the chest failed to show any pleural effusion in the left pleural space, hence the findings are mostly findings of strictly consolidation in the left lower lobe. Objective - Vital Signs Vital signs: Vital Signs Temp 98.5 F 03/12/23 05:00 Pulse 98 03/12/23 11:00 Resp 16 03/12/23 11:00 BP 128/85 03/12/23 11:00 Pulse Ox 93 L 03/12/23 11:00 FiO2 40 03/11/23 08:05 Intake & Output 1103/12/23 03/12/23 18:59 06:59 18:59 Intake Total 1454.833 139.167 10 Output Total 1575 1550 525 Balance -120.167 -1410.833 -515 Weight 82.2 kg Intake: IV 180 40 10 Invasive Line 10 40 30 10 Invasive Line 9 40 10 Levofloxacin 500Mg-D5w 100 Pmx 500 mg In Dextrose/ Water 1 100ml.bag @ 100 mls/hr IVPB Q48H GALINDO Rx#: [id number] Intake, IV Titration 95.833 99.167 Amount Furosemide 100 mg In 95.833 99.167 Sodium Chloride 0.9% 90 ml @ 10 MG/HR 10 mls/hr IV .Q10H GALINDO Rx#: [id number] Oral 1070 Tube Feeding 79 Other 30 Output: Urine 1575 1550 525 Other: Voiding Method Indwelling Catheter Indwelling Catheter Indwelling Catheter # Bowel Movements 1 0 0 ABP, PAP, CO, CI - Last Documented Arterial Blood Pressure 72/72 - Exam Physical Exam: Revealed a 62-year-old white male in no distress on room air Head: Atraumatic, normocephalic. HEENT:[Neck is supple.] [No neck masses.] [No thyromegaly.] [No JVD.] Chest: [Diminished breath sound bilaterally especially at the left base no rhonchi and no wheezes Cardiac Exam: [Normal S1 and S2, no S3 gallop, no murmur.] Abdomen: [Soft, nontender, no megaly, no rebound, no guarding, normal bowel sounds.] Extremities: [No clubbing, no edema, no cyanosis.] Dialysis catheter is in the right femoral vein both feet are wrapped with dressings bilaterally. Could not evaluate the wounds in his lower extremities. Neurological Exam: [No focal neurologic deficit.] Alert and oriented 3. Psychiatric: Normal mood affect and normal mental status examination - Labs CBC & Chem 7: 03/12/23 04:52 03/12/23 03:53 Labs: Abnormal Lab Results - Last 24 Hours (Table) 03/11/23 03/11/23 03/12/23 Range/Units 16:24 21:12 03:53 RBC (4.30-5.90) m/uL Hgb (13.0-17.5) gm/dL Hct (39.0-53.0) % RDW (11.5-15.5) % Sodium 136 L (137-145) mmol/L Potassium 5.2 H (3.5-5.1) mmol/L BUN 97 H (9-20) mg/dL Creatinine 4.84 H (0.66-1.25) mg/dL Glucose 112 H (74-99) mg/dL POC Glucose (mg/dL) 199 H 166 H (70-110) mg/dL Calcium 7.9 L (8.4-10.2) mg/dL 03/12/23 03/12/23 03/12/23 Range/Units 04:52 06:30 06:43 RBC 2.73 L (4.30-5.90) m/uL Hgb 7.6 L (13.0-17.5) gm/dL Hct 23.9 L (39.0-53.0) % RDW 15.8 H (11.5-15.5) % Sodium (137-145) mmol/L Potassium (3.5-5.1) mmol/L BUN (9-20) mg/dL Creatinine (0.66-1.25) mg/dL Glucose (74-99) mg/dL POC Glucose (mg/dL) 117 H 122 H (70-110) mg/dL Calcium (8.4-10.2) mg/dL 03/12/23 Range/Units 11:25 RBC (4.30-5.90) m/uL Hgb (13.0-17.5) gm/dL Hct (39.0-53.0) % RDW (11.5-15.5) % Sodium (137-145) mmol/L Potassium (3.5-5.1) mmol/L BUN (9-20) mg/dL Creatinine (0.66-1.25) mg/dL Glucose (74-99) mg/dL POC Glucose (mg/dL) 111 H (70-110) mg/dL Calcium (8.4-10.2) mg/dL Assessment and Plan Assessment: Impression: Witnessed PEA cardiac arrest with down time of less than 5 minutes Acute anoxic encephalopathy Acute hypoxic respiratory failure secondary to above Acute left lower lobe pneumonia secondary to Legionella normal celiac Severe cardiomyopathy and ejection fraction of 20-25% Cardiogenic shock Acute metabolic anion gap metabolic acidosis Chronic stage IV kidney disease Acute rhabdomyolysis Anemia of chronic disease Insulin-dependent diabetes Dyslipidemia Superficial vein thrombosis of the cephalic veins based on ultrasound Chronic diarrhea negative C. difficile screening Chronic draining once in both feet recommendation: Continue to monitor in the ICU Continue aggressive pulmonary toileting and chest PT Continue Levaquin for his Legionella pneumonia Reviewed ultrasound of the chest, no evidence of significant pleural effusion Continue cautious hydration Continue hemodialysis if necessary or if felt necessary by nephrology on the case Continue present supportive care measures wound services to consult on lower extremities feet ulceration Overall long-term prognosis remains poor and guarded We will continue to follow Time with Patient: Less than 30
[2023-03-12 16:39] LABS: Glucose,Whole Blood 100 mg/dL (70-110)
[2023-03-12 20:41] LABS: Glucose,Whole Blood 114 mg/dL (70-110)
[2023-03-13 04:24] LABS: HCT 23.2 % (39.0-53.0); HGB 7.5 gm/dL (13.0-17.5); Hypochromasia Slight; MCH 28.1 pg (25.0-35.0); MCHC 32.2 g/dL (31.0-37.0); MCV 87.2 fL (80.0-100.0); Mean Platelet Volume 8.2; Platelet Count 247 k/uL (150-450); RBC 2.66 m/uL (4.30-5.90); RDW 15.6 % (11.5-15.5)
[2023-03-13 04:29] LABS: African American GFR (CKD) 11 (>60 ml/min/1.73 sqM); Anion Gap 15 mmol/L; Calcium 8.1 mg/dL (8.4-10.2); Carbon Dioxide 23 mmol/L (22-30); Chloride 99 mmol/L (98-107); Glucose 114 mg/dL (74-99); Non-African American GFR(CKD) 9 (>60 ml/min/1.73 sqM); Potassium 5.4 mmol/L (3.5-5.1); Sodium 137 mmol/L (137-145)
[2023-03-13 04:31] LABS: Blood Urea Nitrogen 101 mg/dL (9-20)
[2023-03-13 06:19] LABS: Glucose,Whole Blood 109 mg/dL (70-110)
[2023-03-13] MEDS: INSULIN DETEMIR (LEVEMIR) 100 UNIT/ML SYR SQ SCH (06:37)
--- NOTE | 2023-03-13 07:25 | P.PN ---
Subjective Progress Note Date: 03/13/23 Principal diagnosis: Cardiomyopathy/cardiac arrest The patient is a 62-year-old gentleman who was admitted to the hospital after a fall and subsequently he developed right wrist with PEA. Further investigation including an echo was performed and showed severe cardiomyopathy. Troponin was mildly elevated. He was in renal failure. He was anemic. In 03/12/2023 The patient was seen and evaluated. Currently he is stable. He is on Lasix drip by the nephrology service. He is on metoprolol only because his pressure has been on the low side. He still anemic. He still renal failure. The decision to be made regarding permanent hemodialysis catheter. From the Cardec standpoint of view, I would continue the current medical regimen to renal the patient need permanent dialysis or not. Definitely heart catheterization need to be done in the next few days or as an outpatient to rule out severe underlying coronary artery disease for the cardiomyopathy. Meanwhile will c ontinue the current medical regimen. On examination he does have regular rhythm with diminished breathing sounds bilaterally and bilateral lower extremity is edema noted. 03/13/2023 [place] the patient was seen and evaluated this morning. The plan is to pursue with replacing the dialysis catheter. His creatinine has not been improving in spite of patient's making urine. Otherwise he remains stable hemodynamically. He remains in normal sinus mechanism. He does need to undergo coronary angiogram down the line to find out the etiology for cardiomyopathy. Meanwhile will continue the current medical regimen. He continues to be on Lasix IV by the nephrology service. The examination is remarkable for mild change in mental status with regular rate and rhythm and diminished breathing sounds bilaterally Assessment History of cardiac arrest as described above Cardiomyopathy of unknown etiology Renal failure Anemia Multiple comorbid conditions Plan Continue the current dose of beta rhys Consider maximize medical treatment for cardiomyopathy Procedure coronary angiogram after dialysis Follow-up with the patient Objective - Vital Signs Vital signs: Vital Signs Temp 98.6 F 03/12/23 20:00 Pulse 93 03/13/23 07:00 Resp 13 03/13/23 07:00 BP 126/70 03/13/23 07:00 Pulse Ox 94 L 03/13/23 07:00 FiO2 40 03/11/23 08:05 Intake & Output 03/12/23 03/13/23 03/13/23 18:59 06:59 18:59 Intake Total 570 80 Output Total 1665 1565 100 Balance -1095 -1485 -100 Weight 82.2 kg Intake: IV 30 30 Invasive Line 10 30 30 Intake, IV Titration 100 Amount Furosemide 100 mg In 100 Sodium Chloride 0.9% 90 ml @ 10 MG/HR 10 mls/hr IV .Q10H [facility]O Rx#: [id number] Oral 440 50 Output: Urine 9000 9235 100 Other: Voiding Method Indwelling Catheter Indwelling Catheter # Bowel Movements 0 0 ABP, PAP, CO, CI - Last Documented Arterial Blood Pressure 72/72 - Labs CBC & Chem 7: 03/13/23 03:50 03/13/23 03:50 Labs: Abnormal Lab Results - Last 24 Hours (Table) 03/12/23 03/12/23 03/13/23 Range/Units 11:25 20:39 03:50 RBC 2.66 L (4.30-5.90) m/uL Hgb 7.5 L (13.0-17.5) gm/dL Hct 23.2 L (39.0-53.0) % RDW 15.6 H (11.5-15.5) % Potassium (3.5-5.1) mmol/L BUN (9-20) mg/dL Creatinine (0.66-1.25) mg/dL Glucose (74-99) mg/dL POC Glucose (mg/dL) 111 H 114 H (70-110) mg/dL Calcium (8.4-10.2) mg/dL 03/13/23 Range/Units 03:50 RBC (4.30-5.90) m/uL Hgb (13.0-17.5) gm/dL Hct (39.0-53.0) % RDW (11.5-15.5) % Potassium 5.4 H (3.5-5.1) mmol/L BUN 101 H* (9-20) mg/dL Creatinine 5.99 H (0.66-1.25) mg/dL Glucose 114 H (74-99) mg/dL POC Glucose (mg/dL) (70-110) mg/dL Calcium 8.1 L (8.4-10.2) mg/dL
--- NOTE | 2023-03-13 08:11 | XR ---
EXAMINATION TYPE: XR chest 1V portable DATE OF EXAM: 03/13/2023 5:53 AM CLINICAL INDICATION:Male, 62 years old with history of pneumonia; COMPARISON: Chest radiographs from 03/12/2023 TECHNIQUE: XR chest 1V portable Frontal view of the chest. FINDINGS: Lungs/Pleura: Bibasilar atelectasis. No evidence for pneumothorax, pleural effusion or focal consolid ation. Pulmonary vascularity: Unremarkable. Heart/mediastinum: Cardiomediastinal silhouette is unremarkable. Musculoskeletal: No acute osseous pathology. Other findings: None IMPRESSION: Left basilar airspace opacities which could represent atelectasis. Small left pleural effusion is not excluded. Not significantly changed from prior.
[2023-03-13] MEDS: INSULIN ASPART (NovoLOG) 100 UNIT/ML VIAL SQ SCH ×4 (09:16→20:32)
[2023-03-13] MEDS: SODIUM BICARBONATE TAB 650 MG TAB PO SCH ×2 (09:45→20:08)
[2023-03-13] MEDS: allopurinoL 100 MG TAB PO SCH (09:45)
[2023-03-13] MEDS: METOPROLOL TARTRATE 25 MG TAB PO SCH ×3 (09:45→20:08)
[2023-03-13] MEDS: HEPARIN SODIUM,PORCINE 5,000 UNIT/ML 1 ML VIAL SQ SCH ×2 (09:45→20:08)
[2023-03-13] MEDS: FOLIC ACID 1 MG TAB PO SCH (09:45)
[2023-03-13] MEDS: PANTOPRAZOLE 40 MG/10 ML VIAL IVP SCH (09:46)
[2023-03-13] MEDS: ANIDULAFUNGIN 100 MG in SODIUM CHLORIDE 0.9% 100 ML IVPB SCH (09:47)
[2023-03-13] MEDS: FUROSEMIDE 100 MG in SODIUM CHLORIDE 0.9% 90 ML IV SCH (09:55)
--- NOTE | 2023-03-13 11:10 | P.PN ---
Subjective Progress Note Date: 03/13/23 62 year old M with PMH of CKD, hypertension, gout, diabetes mellitus presents to the ED after being found down. Patient is lethargic and sleepy and majority of history is provided by his father. Patient is single, lives alone, takes care of his ADLs and IADL's and normally very active. Father states he has been dealing with a cold over the past week. Symptoms include cough, rhinorrhea, malaise, diarrhea, nausea and vomiting, poor appetite. Last time seen normal was yesterday at 6:30PM when he went to bed. Found down this morning by his father, apparently tried to use the washroom last night, unable to make it to bed, laid on the floor all night. EMS was subsequently called. In the ED, he underwent extensive workup. Tmax 100.7F. HR in the 90s. BP 92/47. 92% on RA. CBC showed leukocytosis of 11.1, hemoglobin of 8.3 and platelet count 142. INR 1.2 CMP showed potassium of 5.4, bicarb 10, BUN 113, creatinine 8.47, glucose 324, total bilirubin 2. Lactic acid 2.1. CPK 1240. Troponin 0.457. Acetone negative. Influenza, RSV, COVID-19 negative. Chest x-ray reviewed by me showed large left sided PNA. EKG showed sinus rhythm with no ST elevation. CODE BLUE was called yesterday. Patient was found to be in PEA arrest. He was given multiple amps of sodium bicarb and epinephrine. Patient was intubated. ROSC was achieved and he was transferred to the ICU. Dr. Lacy, Dr. Juarez and Dr. Simon was contacted. Emergent hemodialysis access was obtained and patient was started on dialysis. Patient was intubated and transferred to the ICU. He maintained on Levophed which was eventually weaned off. Echocardiogram as done which showed ejection fraction 20-25% with moderate TR and MR and therefore cardiology was consulted. Renal ultrasound showed gallbladder wall thickening but no signs of hydrone phrosis or nephrolithiasis. His legionella urine antigen Positive and he was subsequently transitioned to Levaquin. Patient was not doing well with sedation holidays and neurology was subsequently consulted. He underwent a head CT which showed chronic microvascular ischemic changes and an EEG which showed moderate to severe background slowing. Left upper extremity venous Doppler showed no evidence of DVT but did show cephalic vein superficial thrombosis. He was successfully extubated on 03/08. Patient developed mucous plugging with white out on the left. He subsequently underwent bronchoscopy with Bronchoalveolar lavage on 03/10 showed mucous plug in the LLL and L mainstem bronchus. He was maintained on a Lasix drip, diuresing but renal function continued to worsen. Plans are made for permacath to initiate HD. He will also need a coronary angiogram prior to discharge. 03/13 Patient was seen and examined. Wanting to go home. Flat affect. Appears severely depressed. CBC Hg 7.5. CMP K 5.4, BUN 101, Cr 5.99, glu 114, Ca 8.1. CXR shows persistent LLL infiltrate. Worsening renal function, he will likely need permacath today. Plans for coronary angiogram after HD per Cardiology. C urrently on a Lasix drip running at 5 mg/hr. Negative 2580 cc fluid balance over the past 24H. Weight on admission 71.214 kg - 82.2 kg. Vital signs reviewed General: nontoxic, no distress, appears at stated age Cardiovascular: S1S2 reg, no murmur Lungs:Decreased bs bilateral, no rhonchi, no rales , no accessory muscle use Abdominal: soft, nontender to palpation, no guarding, no appreciable orga nomegaly Ext: no gross muscle atrophy, diffuse anasarca, no contractures Neuro: moving all 4 extremities independently. Psych: Flat affect Severe depression Acute kidney injury on chronic kidney disease Hyperkalemia Acute systolic cardiomyopathy with ejection fraction 20-25% Troponin elevation PEA arrest Acute hypoxic respiratory failure, extubated 03/09 Legionaires PNA with septic shock, now resolved Left mucus plug, s/p bronch and BAL 03/10 Oral pharyngeal candidiasis Acute metabolic encephalopathy Normocytic anemia Diabetes mellitus with hyperglycemia Chronic conditions: Hypertension, gout Resolved: Metabolic acidosis, Hypokalemia, Rhabdomyolysis, Thrombocytopenia Based on my assessment of this patient, this patient meets a high complexity level of care. Patient has an acute diagnosis of septic shock secondary to Legionaire PNA that poses a threat to life or bodily function. Currently off pressors. Extubated on 03/09. Currently on Anidulafungin and Levaquin. Diuresing with Lasix drip. Severe depression: Consult psychiatry. Acute kidney injury on chronic kidney disease: Lasix drip as above. Calcitriol 0.25 mcg PO MWF. Aranesp 40 mcg SQ weekly. Midodrine 2.5 mg PO BID PRN for hypotension. Sodium bicarbonate 650 mg PO BID. Nephrology on board. Hyperkalemia: Will likely need a permacath for HD. Acute systolic cardiomyopathy: EF 20-25% per Echocardiogram. Lasix drip 5 mg/hr. Monitor electrolytes and renal function. Metoprolol 25 mg PO TID. Strict intake/outtake. Daily weights. Will need coronary angiogram. Cardiology on board. Troponin elevation: Likely due to demand ischemia. Trop flat. Echocardiogram as above. Cardiology on board. PEA arrest Acute hypoxic respiratory failure: Extubated 03/09 Legionaires PNA with septic shock: Septic shock now resolved. Levaquin 500 mg IV Q48H D#11, Zosyn 3.375 g IV Q8H now discontinued on 03/01-03/05 Left mucus plug: Status post bronch and BAL 03/10. Aggressive pulmonary toilet. Oral pharyngeal candidiasis: Eraxis 100 mg IV piggyback daily D #8 Acute metabolic encephalopathy: CT head negative. B12, TSH, Ammonia wnl. Normocytic anemia: AOCD Transfuse if Hg < 7. Daily CBC. Diabetes mellitus with hyperglycemia: A1c 8.2. ISS. Levemir 10 units QD. CODE STATUS: FULL CODE. DVT Prophylaxis: Heparin SQ. GI Prophylaxis: Protonix IV Designated medical POA if patient is not able to make medical decisions for themselves: Father I have reviewed the following security and privacy consultant notes: Pulm, ID, Neuro, Cardio, Nephro note. I have reviewed the results of the following tests: CBC, BMP. I have ordered the following tests: CBC, BMP. I have discussed the care of this patient with the following independent historian: I have independently interpreted the following test below: CXR as above. I have discussed the management of this patient with the following physician: This patient has a high risk of morbidity due to the following reasons: This patient meets a high level of care for the following reasons: Patient requires IV lasix which requires intensive monitoring for renal toxicity. Objective - Vital Signs Vital signs: Vital Signs Temp 98.6 F 03/12/23 20:00 Pulse 93 03/13/23 07:00 Resp 13 03/13/23 07:00 BP 126/70 03/13/23 07:00 Pulse Ox 94 L 11/21/23 07:00 FiO2 40 03/11/23 08:05 Intake & Output 03/12/23 03/13/23 03/13/23 18:59 06:59 18:59 Intake Total 570 80 Output Total 1665 1565 100 Balance -1095 -1485 -100 Weight 82.2 kg Intake: IV 30 30 Invasive Line 10 30 30 Intake, IV Titration 100 Amount Furosemide 100 mg In 100 Sodium Chloride 0.9% 90 ml @ 10 MG/HR 10 mls/hr IV .Q10H [facility] Rx#: [id number] Oral 440 50 Output: Urine 1665 1565 100 Other: Voiding Method Indwelling Catheter Indwelling Catheter # Bowel Movements 0 0 ABP, PAP, CO, CI - Last Documented Arterial Blood Pressure 72/72 - Labs CBC & Chem 7: 03/13/23 03:50 03/13/23 03:50 Labs: Abnormal Lab Results - Last 24 Hours (Table) 03/12/23 03/12/23 03/13/23 Range/Units 11:25 20:39 03:50 RBC 2.66 L (4.30-5.90) m/uL Hgb 7.5 L (13.0-17.5) gm/dL Hct 23.2 L (39.0-53.0) % RDW 15.6 H (11.5-15.5) % Potassium (3.5-5.1) mmol/L BUN (9-20) mg/dL Creatinine (0.66-1.25) mg/dL Glucose (74-99) mg/dL POC Glucose (mg/dL) 111 H 114 H (70-110) mg/dL Calcium (8.4-10.2) mg/dL 03/13/23 Range/Units 03:50 RBC (4.30-5.90) m/uL Hgb (13.0-17.5) gm/dL Hct (39.0-53.0) % RDW (11.5-15.5) % Potassium 5.4 H (3.5-5.1) mmol/L BUN 101 H* (9-20) mg/dL Creatinine 5.99 H (0.66-1.25) mg/dL Glucose 114 H (74-99) mg/dL POC Glucose (mg/dL) (70-110) mg/dL Calcium 8.1 L (8.4-10.2) mg/dL
--- NOTE | 2023-03-13 11:27 | P.PN ---
Subjective Patient is seen for follow-up for acute kidney injury on top of chronic kidney disease. Currently maintained on Lasix drip with 24 hour urine output at 3.2 L. Weight has decreased Last hemodialysis on 03/09/2023. Serum creatinine increased further to 5.9 today with BUN of 101. Edema has decreased significantly No complaints of shortness of breath Objective - Vital Signs Vital signs: Vital Signs Temp 98.4 F 03/13/23 09:00 Pulse 86 03/13/23 11:00 Resp 15 03/13/23 11:00 BP 129/89 03/13/23 11:00 Pulse Ox 94 L 03/13/23 11:00 FiO2 40 03/11/23 08:05 Intake & Output 03/12/23 03/13/23 03/13/23 18:59 06:59 18:59 Intake Total 570 80 200 Output Total 1665 1565 525 Balance -1095 -1485 -325 Weight 82.2 kg Intake: IV 30 30 Invasive Line 10 30 30 Intake, IV Titration 100 100 Amount Furosemide 100 mg In 100 Sodium Chloride 0.9% 90 ml @ 10 MG/HR 10 mls/hr IV .Q10H GALINDO Rx#: [id number] Furosemide 100 mg In 100 Sodium Chloride 0.9% 90 ml @ 5 MG/HR 5 mls/hr IV .Q20H GALINDO Rx#:[id number] Oral 440 50 100 Output: Urine 1665 1565 525 Other: Voiding Method Indwelling Catheter Indwelling Catheter # Bowel Movements 0 0 ABP, PAP, CO, CI - Last Documented Arterial Blood Pressure 72/72 - Exam Patient is awake, comfortable, no acute distress Answering questions appropriately Examination of the heart S1 and S2 Examination of the lungs bilateral breath sounds are heard, decrease at the bases Abdomen is soft nontender Examination of lower extremities shows 1+ edema, decreasing. - Labs CBC & Chem 7: 03/13/23 03:50 03/13/23 03:50 Labs: Abnormal Lab Results - Last 24 Hours (Table) 03/12/23 03/12/23 03/13/23 Range/Units 11:25 20:39 03:50 RBC 2.66 L (4.30-5.90) m/uL Hgb 7.5 L (13.0-17.5) gm/dL Hct 23.2 L (39.0-53.0) % RDW 15.6 H (11.5-15.5) % Potassium (3.5-5.1) mmol/L BUN (9-20) mg/dL Creatinine (0.66-1.25) mg/dL Glucose (74-99) mg/dL POC Glucose (mg/dL) 111 H 114 H (70-110) mg/dL Calcium (8.4-10.2) mg/dL 03/13/23 Range/Units 03:50 RBC (4.30-5.90) m/uL Hgb (13.0-17.5) gm/dL Hct (39.0-53.0) % RDW (11.5-15.5) % Potassium 5.4 H (3.5-5.1) mmol/L BUN 101 H* (9-20) mg/dL Creatinine 5.99 H (0.66-1.25) mg/dL Glucose 114 H (74-99) mg/dL POC Glucose (mg/dL) (70-110) mg/dL Calcium 8.1 L (8.4-10.2) mg/dL Microbiology - Last 24 Hours (Table) 03/10/23 10:12 Gram Stain - Final Bronchial Washings - Left Bronchial Washings Culture - Final Assessment and Plan Assessment: 1. Acute kidney injury on top of chronic kidney disease versus progression of underlying chronic kidney disease. Started hemodialysis 03/01/2023, last hemodialysis on 03/09. Urine output has picked up and currently maintained on Lasix drip. Serum creatinine increased significantly to 5.9 today. Potassium was also elevated therefore we'll proceed with permacath placement and hemodialysis today as well as in a.m. Lasix drip will be discontinued. 2. Anion gap metabolic acidosis secondary to advanced renal failure and lactic acidosis, status post bicarb drip and improved with dialysis. 3. Status post cardiac arrest, PEA, downtime about 5 minutes 4. Mild rhabdomyolysis 5. CK D mineral bone disorder 6. CK D stage IV. Etiology of CK D is biopsy proven diabetic kidney disease and severe interstitial fibrosis. Baseline creatinine around 3-3.4 mg/dL Plan: DC Lasix drip Proceed with permacath placement and hemodialysis today as well as in a.m. Check bladder scan
[2023-03-13 11:56] LABS: Glucose,Whole Blood 110 mg/dL (70-110)
--- NOTE | 2023-03-13 12:38 | P.PN ---
Subjective Progress Note Date: 03/13/23 Principal diagnosis: Sepsis and Legionella pneumonia Patient is a 62-year-old male with a past medical history significant for diabetes mellitus hypertension renal insufficiency patient was brought into the ER concerning for weakness and did have some respiratory symptoms patient did have a fever and worsening respiratory status requiring intubation and admission to the ICU the patient urine for digital antigen came back positive evening of 03/01/2023. Patient is status post bronchoscopy and lavage for mucus plugging on 03/10/2023 On today's evaluation that is 03/13/2023, the patient continues to be afebrile, the patient is breathing comfortably on room air without the need for supplemental oxygen, the patient denies shortness of breath chest pain and no significant cough , patient denies nausea/vomiting, no abdominal pain and no worsening diarrhea reported Patient white count is 8.0, creatinine is 5.99, blood and sputum cultures has been negative, urine for Legionella antigen is positive, stool for C. diff is negative, BAL cultures negative so far Objective - Vital Signs Vital signs: Vital Signs Temp 98.4 F 03/13/23 09:00 Pulse 86 03/13/23 11:00 Resp 15 03/13/23 11:00 BP 129/89 03/13/23 11:00 Pulse Ox 94 L 03/13/23 11:00 FiO2 40 03/11/23 08:05 Intake & Output 03/12/23 03/13/23 03/13/23 18:59 06:59 18:59 Intake Total 570 80 200 Output Total 1665 1565 525 Balance -3611 -7051 -852 Weight 82.2 kg Intake: IV 30 30 Invasive Line 10 30 30 Intake, IV Titration 100 100 Amount Furosemide 100 mg In 100 Sodium Chloride 0.9% 90 ml @ 10 MG/HR 10 mls/hr IV .Q10H GALINDO Rx#: [id number] Furosemide 100 mg In 100 Sodium Chloride 0.9% 90 ml @ 5 MG/HR 5 mls/hr IV .Q20H GALINDO Rx#:[id number] Oral 440 50 100 Output: Urine 1665 1565 525 Other: Voiding Method Indwelling Catheter Indwelling Catheter Indwelling Catheter # Bowel Movements 0 0 ABP, PAP, CO, CI - Last Documented Arterial Blood Pressure 72/72 - Exam GENERAL DESCRIPTION: Middle-aged male lying in bed in no distress RESPIRATORY SYSTEM: Unlabored breathing , decreased breath sound at the base HEART: S1 S2 regular rate and rhythm , ABDOMEN: Soft , no tenderness EXTREMITIES: No edema feet - Labs CBC & Chem 7: 03/13/23 03:50 03/13/23 03:50 Labs: Abnormal Lab Results - Last 24 Hours (Table) 03/12/23 03/13/23 03/13/23 Range/Units 20:39 03:50 03:50 RBC 2.66 L (4.30-5.90) m/uL Hgb 7.5 L (13.0-17.5) gm/dL Hct 23.2 L (39.0-53.0) % RDW 15.6 H (11.5-15.5) % Potassium 5.4 H (3.5-5.1) mmol/L BUN 101 H* (9-20) mg/dL Creatinine 5.99 H (0.66-1.25) mg/dL Glucose 114 H (74-99) mg/dL POC Glucose (mg/dL) 114 H (70-110) mg/dL Calcium 8.1 L (8.4-10.2) mg/dL Microbiology - Last 24 Hours (Table) 03/10/23 10:12 Gram Stain - Final Bronchial Washings - Left Bronchial Washings Culture - Final Assessment and Plan (1) Legionella pneumonia Current Visit: Yes Status: Acute Code(s): A48.1 - LEGIONNAIRES' DISEASE SNOMED Code(s): 352403263 (2) Sepsis Current Visit: Yes Status: Acute Code(s): A41.9 - SEPSIS, UNSPECIFIED ORGANISM SNOMED Code(s): 30560601 Plan: 1patient presented to hospital with sepsis in this patient with a fever tachycardia hypotension source is likely left lower lobe pneumonia in this patient with weakness lethargy and decreased level of responsiveness and the question of community-acquired versus aspiration pneumonia 2- leukocytosis possible oropharyngeal candidiasis, patient white count has normalized with eraxis we will continue the patient on Eraxis which will be continued for now 3-urine for Legionella antigen is positive, sputum cultures are currently negative for any resistant pathogen , patient is slowly clinically improving and will continue with Levaquin and monitor clinical course closely Dictation was produced using [employer] software. please excuse any grammatical, word or spelling errors. Time with Patient: Less than 30
[2023-03-13] MEDS ORDERED: LIDOCAINE 1% INJ 10MG/ML (20 ML MDV) ONE ×2 (13:24→13:50)
[2023-03-13] MEDS ORDERED: HEPARIN SODIUM 1,000 UN/ML (10ML VL) ONE (13:24)
--- NOTE | 2023-03-13 13:38 | P.CN ---
Psychiatric Consult - . Consult date: 03/13/23 Consult:: 03/13/23 13:03 IDENTIFYING DATA: This patient is a 62-year-old male currently lives alone, he is single he has no kids. REASON FOR REFERRAL: Psychiatry was consulted for "severe depression" HISTORY OF PRESENT ILLNESS: The patient presented to the hospital initially on , due to elevated blood sugars. Patient was also complaining of weakness when he came in and lost consciousness. Patient has a history of CK D, not c urrently on hemodialysis. He also has hypertension. Patient apparently has been refusing hemodialysis. Apparently has been showing a flat affect, wanting to go home and appearing to be depressed, has a poor appetite according to nurse. Hospitalist taking care patient states that patient does kidney failure and will need to go on dialysis. Patient has not been adjusting well to this diagnosis and plan. Patient was seen today in the room and agreeable to seek further. He is fairly concrete, evasive and vague in his responses. He had poor eye contact. He initially was somewhat uncooperative talking about "I want to go home" and responded "I don't know" to several questions about his medical condition and what the state of it is now. He appeared to be in denial at this time. He claims that he has not been on hemodialysis in the past. He says that he is in the ICU because "there is no oral support me". He was minimizing his depression, denies any anxiety. Clearly is that he does not know how much sleep he gets, states that his appetite has been minimal. He did not want to share or talk about any stressors. At this time patient denies any suicidal or homical ideations, intent or plan. Patient denies any auditory, visual hallucinations and denies any paranoia or delusions. He denies having any access to guns or weapons. Patients admits to using no recreational drugs or cigarettes PAST PSYCHIATRIC HISTORY: Patient has no known psychiatric history. Patient denies being on any psychiatric medications. Patient denies any previous psychiatric hospitalizations. Patient denies any psychiatric outpatient follow- up. Patient denies any history of suicide attempts in the past. Past Medical History: Blood Disorder, Diabetes Mellitus, Hypertension, Skin Disorder Additional Past Medical History / Comment(s): diabetic ulcers jose feet, iron infusion 3 weeks ago. IRON DEFICIENCY ANEMIA. History of Any Multi-Drug Resistant Organisms: None Reported Past Surgical History: Tonsillectomy Additional Past Surgical History / Comment(s): kidney biopsy Past Anesthesia/Blood Transfusion Reactions: No Reported Reaction Past Psychological History: No Psychological Hx Reported Smoking Status: Never smoker Past Alcohol Use History: Occasional Past Drug Use History: None Reported ALLERGIES: as per EMR. CHEMICAL DEPENDENCY HISTORY: as per HPI. FAMILY PSYCHIATRIC/SUBSTANCE USE HISTORY: denies SOCIAL HISTORY: Patient was born and raised in [facility]. He claims that he completed high school. He did not share what his occupation was previously. He states that he is currently living alone in a house, he is single and has no kids. MENTAL STATUS EXAM: General Appearance: Patient appears to be weak, tired, stated age is alert, balding, poor eye contact. Patient appears to have fair hygiene and grooming wearing hospital gown Behavior: Patient is calmly lying in bed without any agitated behavior. Evasive and vague, uncooperative Speech: Patient's speech is fluent and nonpressured. [place], monotone Mood/Affect: Patient reports their mood is minimizing his depression, affect is congruent and flat affect Suicidality/Homicidality: Patient denies having any suicidal or homicidal ideation intent or plan. Perceptions: Patient denies any visual hallucinations and denies any auditory hallucinations Though content/process: [place] and poverty of content. Memory and concentration: AOX3, grossly intact for the purposes of this session. Can spell "WORLD" backwards Judgment and insight: poor IMPRESSIONS: Depressive disorder Unspecified, adjustment disorder vs MDD CKD PLAN: -At this time patient DOES NOT meet criteria for inpatient psychiatric admission however due to patients current depression and mental health state and adjusting to news about his decling medical condition and needing to be on hemodialysis, will need to continue to follow along patients case and encourage relying on support system from family. -Patient DOES NOT have decision making capacity at this time and is unable to reason through and communicate/appreciate the risks, benefits and alternatives to treatment. -Would recommend the following medication changes/additions: Start Prozac 20 mg daily for mood/anxiety. Melatonin 3 mg daily at bedtime for sleep. -patient claims that he does not have access to guns or weapons in the house. -Communicated plan to patient's nurse -Will continue to follow along as needed -Please contact with any questions. 03/13/23 13:28
[2023-03-13] MEDS ORDERED: LIDOCAINE 1% INJ 10MG/ML (20 ML MDV) SQ ONE (13:40)
[2023-03-13] MEDS ORDERED: MIDAZOLAM 2 MG/2 ML VIAL IVP ONE (13:40)
--- NOTE | 2023-03-13 14:08 | P.GSCN ---
History of Present Illness History of present illness: 64-year-old gentleman history of post cardiac arrest. Patient history failure and metabolic acidosis based and creatinine is 3.3 consulted for placement of a dialysis catheter Neck is supple no bruit appreciated Chest few crackles the lung bases second sound present Abdomen soft nontender femoral 1+ bilateral Plan is placement dialysis catheter Past Medical History Past Medical History: Blood Disorder, Diabetes Mellitus, Hypertension, Renal Disease, Skin Disorder Additional Past Medical History / Comment(s): diabetic ulcers jose feet, iron infusion 3 weeks ago. IRON DEFICIENCY ANEMIA. History of Any Multi-Drug Resistant Organisms: None Reported Past Surgical History: Tonsillectomy Additional Past Surgical History / Comment(s): kidney biopsy Past Anesthesia/Blood Transfusion Reactions: No Reported Reaction Past Psychological History: No Psychological Hx Reported Smoking Status: Never smoker Past Alcohol Use History: Rare Past Drug Use History: None Reported - Past Family History Mother Family Medical History: Congestive Heart Failure (CHF), Coronary Artery Disease (CAD), Diabetes Mellitus Father Family Medical History: Cancer, Diabetes Mellitus Medications and Allergies Home Medications Medication Instructions Recorded Confirmed Type Insulin Aspart [NovoLOG Flexpen] 7 units SQ AC-BID 03/08/18 02/28/23 History allopurinoL [Zyloprim] 100 mg PO DAILY 03/08/18 02/28/23 History calcitrioL [Calcitriol] 0.25 mcg PO MOTUWETHFR 03/08/18 02/28/23 History Ergocalciferol (Vitamin D2) 1,250 mcg PO Q14D 02/28/23 02/28/23 History [Drisdol (50,000 Iu)] Sildenafil Citrate 50 mg PO DAILY PRN 02/28/23 02/28/23 History Simvastatin 10 mg PO DAILY 02/28/23 02/28/23 History carvediloL [Coreg] 6.25 mg PO BID 02/28/23 02/28/23 History Allergies Allergy/AdvReac Type Severity Reaction Status Date / Time No Known Allergies Allergy Verified 02/28/23 16:15 Surgical - Exam Vital Signs Temp Pulse Resp BP Pulse Ox 99.2 F 95 18 112/75 92 L 02/28/23 11:37 02/28/23 11:37 02/28/23 11:37 02/28/23 11:37 02/28/23 11:37 Results - Labs 03/13/23 03:50 03/13/23 03:50 Abnormal Lab Results - Last 24 Hours (Table) 03/12/23 03/13/23 03/13/23 Range/Units 20:39 03:50 03:50 RBC 2.66 L (4.30-5.90) m/uL Hgb 7.5 L (13.0-17.5) gm/dL Hct 23.2 L (39.0-53.0) % RDW 15.6 H (11.5-15.5) % Potassium 5.4 H (3.5-5.1) mmol/L BUN 101 H* (9-20) mg/dL Creatinine 5.99 H (0.66-1.25) mg/dL Glucose 114 H (74-99) mg/dL POC Glucose (mg/dL) 114 H (70-110) mg/dL Calcium 8.1 L (8.4-10.2) mg/dL Microbiology - Last 24 Hours (Table) 03/10/23 10:12 Gram Stain - Final Bronchial Washings - Left Bronchial Washings Culture - Final Diabetes panel 03/13/23 Range/Units 03:50 Sodium 137 (137-145) mmol/L Potassium 5.4 H (3.5-5.1) mmol/L Chloride 99 (98-107) mmol/L Carbon Dioxide 23 (22-30) mmol/L BUN 101 H* (9-20) mg/dL Creatinine 5.99 H (0.66-1.25) mg/dL Glucose 114 H (74-99) mg/dL Calcium 8.1 L (8.4-10.2) mg/dL Calcium panel 03/13/23 Range/Units 03:50 Calcium 8.1 L (8.4-10.2) mg/dL Pituitary panel 03/13/23 Range/Units 03:50 Sodium 137 (137-145) mmol/L Potassium 5.4 H (3.5-5.1) mmol/L Chloride 99 (98-107) mmol/L Carbon Dioxide 23 (22-30) mmol/L BUN 101 H* (9-20) mg/dL Creatinine 5.99 H (0.66-1.25) mg/dL Glucose 114 H (74-99) mg/dL Calcium 8.1 L (8.4-10.2) mg/dL Adrenal panel 03/13/23 Range/Units 03:50 Sodium 137 (137-145) mmol/L Potassium 5.4 H (3.5-5.1) mmol/L Chloride 99 (98-107) mmol/L Carbon Dioxide 23 (22-30) mmol/L BUN 101 H* (9-20) mg/dL Creatinine 5.99 H (0.66-1.25) mg/dL Glucose 114 H (74-99) mg/dL Calcium 8.1 L (8.4-10.2) mg/dL
--- NOTE | 2023-03-13 14:13 | P.PCN ---
Description of Procedure: preoperative diagnoses is acute chronic renal failure Postop same procedure ultrasound-guided 23 same device catheter placement right jugular approach Patient brought to the Director Dermatology Patricia of the neck and chest was prepped and draped applied sterile manner 1% lidocaine were infiltrated neck and chest area. Ultrasound-guided micropuncture introduced right jugular vein micropuncture guidewire was passed and 4-Surinamese dilator about top the guidewire. After that we positive guidewire which was parked at the inferior vena cava a tendon was created through the terminal be brought 23 same callus catheter dilator were advanced top the guidewire then we placed a sheath on the top of the guidewire under fluoroscopy control through the sheath. His dialysis catheter tip of The superior vena cava at her ejection fraction is saline and Hep-Lock. With 3-0 nylon patient tolerated the procedure well
--- NOTE | 2023-03-13 15:46 | P.PN ---
Subjective Progress Note Date: 03/13/23 Principal diagnosis: Pulseless electrical activity cardiac arrest I am seeing this patient in new consultation today 03/01/2023 in the intensive care unit, after the patient had a witnessed PEA cardiac arrest while on the Observation unit. Patient is a 62-year-old white male with past medical history significant for diabetes mellitus, diabetic foot ulcers, hypertension, hype rlipidemia, iron deficiency anemia, chronic kidney disease. Patient is currently sedated and intubated on the mechanical ventilator. He was admitted yesterday morning, after being found on the floor by his father. Apparently, the patient denied hitting his head or losing consciousness. Patient does have diabetes mellitus, and his blood sugars had been running high at home. Chest x-ray on admission showed a left lower lobe infiltrate consistent with community acquired pneumonia. Patient did have a fever with a T-max of 100.7F. Apparently, after being admitted to the observation unt, the patient was noted to have low blood pressure. The patient was given 1 L normal saline bolus and 5 amps sodium bicarb. Soon after, the patient had a cardiac arrest. Presenting rhythm was PEA. Patient had a limited downtime of less than 5 minutes. He received 1 mg of epinephrine. Rapid sequence intubation was performed. The patient was then transferred to the intensive care unit. Dr. Lacy did come in and place a left subclavian central line catheter and a right wrist arterial line. Patient was also noted to be in acute renal failure. He did have a right femoral hemodialysis catheter placed earlier, and is currently undergoing emergent hemodialysis. Patient is currently in the intensive care unit, intubated to the mechanical ventilator. He is sedated on propofol which is currently infusing at 40 mcg/kg/m. He is synchronous with the mechanical ventilator. Postintubation ABG shows a pO2 greater than 400, pCO2 27, pH of 7.43, this was done on ventilator settings of assist control, respiratory rate 22, tidal volume 500, FiO2 100%, and PEEP of 5. Patient's FiO2 was dropped to 50%. Peak pressures 27. Post intubation chest x-ray shows the endotracheal tube 4 cm above the anika. Oral gastric tube could be advanced 5 cm. There is a persistent left lower lobe infiltrate. Most recent CBC from yesterday evening showed a WBC count of 7.8, hemoglobin 7.1, hematocrit 22.7, platelets 120. No obvious acute blood loss was noted. Most recent available BMP shows sodium 140, potassium 4.6, chloride 107, serum bicarb 15, BUN 107, creatinine 7.82, glucose 282. Acetone negative. LFTs not elevated. CPK 1240. Currently, 3 A sodium bicarb in D5W is infusing at 100 ML's per hour. There is also normal saline infusing at 130 ML's per hour. Patient is currently anuric. Troponins elevated at 0.457, 0.388, and 0.422 respectively. ECG shows normal sinus rhythm without any obvious acute ischemic changes. Urinalysis not concerning for UTI. Lactic acid level was elevated at 4 is down 1.6. Negative for influenza, RSV, COVID-19. Patient was started on empiric antibiotics in the form of ceftriaxone and azithromycin. Currently afebrile. Patient's condition is currently critical, moderate in the intensive care unit. On 03/10/2023, the patient is resting comfortably. Breathing is nonlabored and the patient is on 4 L of oxygen by nasal cannula with a pulse ox of 97%. He has a IV daily for enteral feeding for nutritional support. His chest x-ray from today is showing significant volume loss in the left lung. Suspect mucus plugging as the patient has of optimal ability to do adequate pulmonary toileting. Based on that, the plan was to do a bedside bronchoscopy for ther apeutic airway suctioning. . It is possible also that there may be some limited pleural effusion and left lung. The patient was echoes at 12.3, hemoglobin is 8.6, platelet count is 175, BUN is at 75 with a creatinine of 3.06. Sodium is at 133. Last hemodialysis session was yesterday. Note that the patient had a Legionella pneumonia in the left lower lobe and the patient continued to have a persistent consolidation of the left lung base. He remains on Levaquin. She remains on Eraxis. Infectious diseases on the case. He is on no pressors at this point in time. On Levemir insulin, 15 units at bedtime and 10 units in the morning. Is also on NovoLog siding scale coverage. He remains on metoprolol 25 mg 3 times a day.. Last hemodialysis session was yesterday and the patient is producing adequate amount of urine output for the time being. . On 03/11/2023, the patient is post bronchoscopy. The repeat chest x-ray was done today and the patient has ongoing consolidation of the left lung base related to residual pneumonia. Is improvement in volume status examination of the left lung. He remains on oxygen at 4 L/m nasal cannula. He continues to receive enteral feeding for nutritional support. He is still weak and having episodes of confusion. Is communicating for now. He has profound motor weakness in all 4 extremities. He remains on Levaquin. No nausea. No abdominal pain or distention. He is producing urine output. No plans for dialysis today. He has of 87 with a creatinine of 3.97 and sodium is 135. WBC count 10.7 with a hemoglobin of 7.9. Oxygenation is further improved. The patient's current on room air oxygen with a pulse ox of 93%. He is on Levemir insulin 10 units in addition to sliding scale coverage. Heparin subcu for prophylaxis. Patient was reevaluated today on 03/12/2023, patient remains in the ICU, continues to have a significant left lower lobe consolidation. Remains on Lasix drip at 10 mg per hour, patient has excellent urine output, -3 L in the last 24 hours. Patient remains on Eraxis and on Levaquin. Ultrasound of the chest was ordered today to consider left-sided thoracentesis if there is enough fluid to drain. His BUN is 97 creatinine 4.84, his last dialysis was on 03/09 may be considered for hemodialysis catheter placement. Patient is wondering when he could go home, and I explained to them that he is not quite ready continues to have many issues to address. And he needs to BE cleared by all the consultants. Continues to have chronic wounds in both feet. Continues to be followed by many consultants. WBC count today is 7.8 hemoglobin 7.6 electrolytes are normal BUN is 97 creatinine 4.84. Ultrasound of the chest failed to show any pleural effusion in the left pleural space, hence the findings are mostly findings of strictly consolidation in the left lower lobe. Patient will reevaluated today on 03/13/23, remains in the ICU, patient remains on Lasix at 5 mg per hour, he has excellent urine output however his renal functioning seems to be getting worse. He was seen by nephrology today, and now the recommendation is to place a permacath, and possibly start dialysis on this patient. Creatinine is up to 5.99. In the meantime the patient could be considered for transfer to a [facility]monitor bed on selective. Patient is still receiving treatment for his Legionella pneumonia and sepsis. Remains on Levaquin. Chest x-ray showed significant improvement today in his left lower lobe consolidation, and again his ultrasound did not show any fluid to drain WBC count is 8 hemoglobin 7.5 electrolytes are relatively normal except for potassium of 5.4 and he had a BUN of 101 creatinine 5.99 Objective - Vital Signs Vital signs: Vital Signs Temp 98.4 F 03/13/23 09:00 Pulse 86 03/13/23 11:00 Resp 15 03/13/23 11:00 BP 129/89 03/13/23 11:00 Pulse Ox 94 L 03/13/23 11:00 FiO2 40 03/11/23 08:05 Intake & Output 03/12/23 03/13/23 03/13/23 18:59 06:59 18:59 Intake Total 570 80 200 Output Total 1665 1565 525 Balance -0035 -5765 -382 Weight 82.2 kg Intake: IV 30 30 Invasive Line 10 30 30 Intake, IV Titration 100 100 Amount Furosemide 100 mg In 100 Sodium Chloride 0.9% 90 ml @ 10 MG/HR 10 mls/hr IV .Q10H [facility] Rx#: [id number] Furosemide 100 mg In 100 Sodium Chloride 0.9% 90 ml @ 5 MG/HR 5 mls/hr IV .Q20H [facility] Rx#:[id number] Oral 440 50 100 Output: Urine 1665 1565 525 Other: Voiding Method Indwelling Catheter Indwelling Catheter Indwelling Catheter # Bowel Movements 0 0 ABP, PAP, CO, CI - Last Documented Arterial Blood Pressure 72/72 - Exam Physical Exam: Revealed a 62-year-old white male in no distress on 2 L nasal cannula Head: Atraumatic, normocephalic. HEENT:[Neck is supple.] [No neck masses.] [No thyromegaly.] [No JVD.] Chest: [Diminished breath sound bilaterally especially at the left base no rhonchi and no wheezes Cardiac Exam: [Normal S1 and S2, no S3 gallop, no murmur.] Abdomen: [Soft, nontender, no megaly, no rebound, no guarding, normal bowel sounds.] Extremities: [No clubbing, no edema, no cyanosis.] Multiple ones in lower extremities however covered with sterile dressing Neurological Exam: [No focal neurologic deficit.] Alert and oriented 3. Psychiatric: Normal mood affect and normal mental status examination - Labs CBC & Chem 7: 03/13/23 03:50 03/13/23 03:50 Labs: Abnormal Lab Results - Last 24 Hours (Table) 03/12/23 03/13/23 03/13/23 Range/Units 20:39 03:50 03:50 RBC 2.66 L (4.30-5.90) m/uL Hgb 7.5 L (13.0-17.5) gm/dL Hct 23.2 L (39.0-53.0) % RDW 15.6 H (11.5-15.5) % Potassium 5.4 H (3.5-5.1) mmol/L BUN 101 H* (9-20) mg/dL Creatinine 5.99 H (0.66-1.25) mg/dL Glucose 114 H (74-99) mg/dL POC Glucose (mg/dL) 114 H (70-110) mg/dL Calcium 8.1 L (8.4-10.2) mg/dL Microbiology - Last 24 Hours (Table) 03/10/23 10:12 Gram Stain - Final Bronchial Washings - Left Bronchial Washings Culture - Final Assessment and Plan Assessment: Impression: Witnessed PEA cardiac arrest with down time of less than 5 minutes Acute anoxic encephalopathy Acute hypoxic respiratory failure secondary to above Acute left lower lobe pneumonia secondary to Legionella pneumonia Severe cardiomyopathy and ejection fraction of 20-25% Cardiogenic shock Acute metabolic anion gap metabolic acidosis Chronic stage IV kidney disease Acute rhabdomyolysis Anemia of chronic disease Insulin-dependent diabetes Dyslipidemia Superficial vein thrombosis of the cephalic veins based on ultrasound Chronic diarrhea negative C. difficile screening Chronic draining once in both feet recommendation: Agree with hemodialysis, patient will have a permacath placement by vascular surgery today Could transfer patient to a monitor bed on selective Continue aggressive pulmonary toileting and chest PT Continue Levaquin for his Legionella pneumonia Continue present supportive care measures wound services to follow Overall long-term prognosis remains poor and guarded We will continue to follow Time with Patient: Less than 30
[2023-03-13] MEDS: LEVOFLOXACIN 500MG-D5W PMX 500 MG in DEXTROSE/WATER 1 100ML.BAG IVPB SCH (17:35)
[2023-03-13] MEDS: FLUoxetine HCL 20 MG CAP PO SCH (17:35)
[2023-03-13 20:05] LABS: Glucose,Whole Blood 69 mg/dL (70-110)
[2023-03-13] MEDS: MELATONIN 3 MG TABLET PO SCH (20:08)
[2023-03-13] MEDS: DEXTROSE 50% SYRINGE 50 ML IVP PRN (20:27)
[2023-03-13 20:46] LABS: Glucose,Whole Blood 150 mg/dL (70-110)
[2023-03-14 04:28] LABS: HCT 24.8 % (39.0-53.0); HGB 7.9 gm/dL (13.0-17.5); Hypochromasia Slight; MCH 27.5 pg (25.0-35.0); MCHC 31.6 g/dL (31.0-37.0); MCV 87.1 fL (80.0-100.0); Mean Platelet Volume 8.1; Platelet Count 241 k/uL (150-450); RBC 2.85 m/uL (4.30-5.90); RDW 15.4 % (11.5-15.5); WBC 6.3 k/uL (3.8-10.6)
[2023-03-14 04:44] LABS: African American GFR (CKD) 22 (>60 ml/min/1.73 sqM); Anion Gap 8 mmol/L; Blood Urea Nitrogen 41 mg/dL (9-20); Calcium 7.8 mg/dL (8.4-10.2); Carbon Dioxide 27 mmol/L (22-30); Chloride 98 mmol/L (98-107); Glucose 89 mg/dL (74-99); Non-African American GFR(CKD) 19 (>60 ml/min/1.73 sqM); Potassium 3.8 mmol/L (3.5-5.1); Sodium 133 mmol/L (137-145)
[2023-03-14 06:30] LABS: Glucose,Whole Blood 108 mg/dL (70-110)
[2023-03-14 06:49] LABS: Glucose,Whole Blood 131 mg/dL (70-110)
[2023-03-14] MEDS: POTASSIUM CHLORIDE 10 MEQ in WATER FOR INJECTION 1 100ML.BAG IVPB SCH ×4 (06:59→13:16)
[2023-03-14] MEDS: INSULIN DETEMIR (LEVEMIR) 100 UNIT/ML SYR SQ SCH (06:59)
[2023-03-14] MEDS: INSULIN ASPART (NovoLOG) 100 UNIT/ML VIAL SQ SCH ×4 (07:00→21:02)
--- NOTE | 2023-03-14 07:43 | XR ---
EXAMINATION TYPE: XR chest 1V portable DATE OF EXAM: 03/14/2023 Comparison: 03/13/2023 Clinical History: 62-year-old male pneumonia Findings: Right-sided double-lumen hemodialysis catheter with tips at the cavoatrial junction. Cardiac/pericard iac silhouette remains moderately enlarged. Ongoing small left pleural effusion with prominent left l ower lung opacity. Impression: Overall stable exam with large area of consolidation in the left lower lung with small effusion. Cons ider pneumonia.
[2023-03-14] MEDS: FLUoxetine HCL 20 MG CAP PO SCH ×2 (08:43→10:48)
[2023-03-14] MEDS: FOLIC ACID 1 MG TAB PO SCH ×2 (08:43→10:48)
[2023-03-14] MEDS: PANTOPRAZOLE 40 MG/10 ML VIAL IVP SCH (08:43)
[2023-03-14] MEDS: SODIUM BICARBONATE TAB 650 MG TAB PO SCH ×3 (08:44→20:47)
[2023-03-14] MEDS: METOPROLOL TARTRATE 25 MG TAB PO SCH ×4 (08:44→20:47)
[2023-03-14] MEDS: HEPARIN SODIUM,PORCINE 5,000 UNIT/ML 1 ML VIAL SQ SCH ×3 (08:44→20:47)
[2023-03-14] MEDS: allopurinoL 100 MG TAB PO SCH ×2 (08:44→10:47)
[2023-03-14 11:23] LABS: Glucose,Whole Blood 83 mg/dL (70-110)
--- NOTE | 2023-03-14 11:51 | P.PN ---
Subjective Progress Note Date: 03/14/23 Principal diagnosis: Cardiomyopathy/cardiac arrest The patient is a 62-year-old gentleman who was admitted to the hospital after a fall and subsequently he developed right wrist with PEA. Further investigation including an echo was performed and showed severe cardiomyopathy. Troponin was mildly elevated. He was in renal failure. He was anemic. In 03/12/2023 The patient was seen and evaluated. Currently he is stable. He is on Lasix drip by the nephrology service. He is on metoprolol only because his pressure has been on the low side. He still anemic. He still renal failure. The decision to be made regarding permanent hemodialysis catheter. From the Cardec standpoint of view, I would continue the current medical regimen to renal the patient need permanent dialysis or not. Definitely heart catheterization need to be done in the next few days or as an outpatient to rule out severe underlying coronary artery disease for the cardiomyopathy. Meanwhile will c ontinue the current medical regimen. On examination he does have regular rhythm with diminished breathing sounds bilaterally and bilateral lower extremity is edema noted. 03/13/2023 [place] the patient was seen and evaluated this morning. The plan is to pursue with replacing the dialysis catheter. His creatinine has not been improving in spite of patient's making urine. Otherwise he remains stable hemodynamically. He remains in normal sinus mechanism. He does need to undergo coronary angiogram down the line to find out the etiology for cardiomyopathy. Meanwhile will continue the current medical regimen. He continues to be on Lasix IV by the nephrology service. The examination is remarkable for mild change in mental status with regular rate and rhythm and diminished breathing sounds bilaterally March [id number] The patient was seen and evaluated this morning. The creatinine has been improving. He remains in sinus mechanism. No chest pain or chest discomfort. The examination is remarkable for diminished breathing sounds bilaterally and mild chronic skin changes. His mentation has improved Assessment History of cardiac arrest as described above Cardiomyopathy of unknown etiology Renal failure Anemia Multiple comorbid conditions Plan Continue the current dose of beta rhys Consider maximize medical treatment for cardiomyopathy Procedure coronary angiogram after dialysis Follow-up with the patient Objective - Vital Signs Vital signs: Vital Signs Temp 97.6 F 03/14/23 09:51 Pulse 89 03/14/23 09:51 Resp 14 03/14/23 09:51 BP 116/83 03/14/23 09:51 Pulse Ox 95 03/14/23 09:51 FiO2 40 03/11/23 08:05 Intake & Output 03/13/23 03/14/23 03/14/23 18:59 06:59 18:59 Intake Total 300 400 Output Total 750 1975 300 Balance -450 -1575 -300 Weight 76.7 kg 76.7 kg Intake: Intake, IV Titration 100 Amount Furosemide 100 mg In 100 Sodium Chloride 0.9% 90 ml @ 5 MG/HR 5 mls/hr IV .Q20H [facility] Rx#:[id number] Oral 200 Hemodialysis 400 Output: Urine 750 575 Stool 300 Hemodialysis 1400 Other: Voiding Method Indwelling Catheter Indwelling Catheter Indwelling Catheter ABP, PAP, CO, CI - Last Documented Arterial Blood Pressure 72/72 - Labs CBC & Chem 7: 03/14/23 03:54 03/14/23 03:54 Labs: Abnormal Lab Results - Last 24 Hours (Table) 03/13/23 03/13/23 03/14/23 Range/Units 20:03 20:44 03:54 RBC 2.85 L (4.30-5.90) m/uL Hgb 7.9 L (13.0-17.5) gm/dL Hct 24.8 L (39.0-53.0) % Sodium (137-145) mmol/L BUN (9-20) mg/dL Creatinine (0.66-1.25) mg/dL POC Glucose (mg/dL) 69 L 150 H (70-110) mg/dL Calcium (8.4-10.2) mg/dL 03/14/23 03/14/23 Range/Units 03:54 06:47 RBC (4.30-5.90) m/uL Hgb (13.0-17.5) gm/dL Hct (39.0-53.0) % Sodium 133 L (137-145) mmol/L BUN 41 H (9-20) mg/dL Creatinine 3.24 H (0.66-1.25) mg/dL POC Glucose (mg/dL) 131 H (70-110) mg/dL Calcium 7.8 L (8.4-10.2) mg/dL Microbiology - Last 24 Hours (Table) 03/10/23 10:12 Gram Stain - Final Bronchial Washings - Left Bronchial Washings Culture - Final
--- NOTE | 2023-03-14 12:44 | P.PN ---
Subjective Progress Note Date: 03/14/23 I am following-up with the patient and per primary team he is about the same. He continues to feel down and is crying. Psychiatry is consulted. Objective - Vital Signs Vital signs: Vital Signs Temp 97.6 F 03/14/23 09:51 Pulse 89 03/14/23 09:51 Resp 14 03/14/23 09:51 BP 116/83 03/14/23 09:51 Pulse Ox 95 03/14/23 09:51 FiO2 40 03/11/23 08:05 Intake & Output 03/13/23 03/14/23 03/14/23 18:59 06:59 18:59 Intake Total 300 400 Output Total 750 1975 300 Balance -450 -1575 -300 Weight 76.7 kg 76.7 kg Intake: Intake, IV Titration 100 Amount Furosemide 100 mg In 100 Sodium Chloride 0.9% 90 ml @ 5 MG/HR 5 mls/hr IV .Q20H [facility] Rx#:[id number] Oral 200 Hemodialysis 400 Output: Urine 750 575 Stool 300 Hemodialysis 1400 Other: Voiding Method Indwelling Catheter Indwelling Catheter Indwelling Catheter ABP, PAP, CO, CI - Last Documented Arterial Blood Pressure 72/72 - Exam General: Sitting in a recliner chair and is not in acute distress. Psych: Flat affect. Neuro: Patient examination is limited because his cooperation. He was in tears and crying. The pupils are round equal reactive to light. Extra ocular movement the patient is tracking on the right and left without any nystagmus. No facial weakness. No dysarthria. Motor the strength is unable to assess individual muscle because his cooperation. - Labs CBC & Chem 7: 03/14/23 03:54 03/14/23 03:54 Labs: Abnormal Lab Results - Last 24 Hours (Table) 03/13/23 03/13/23 03/14/23 Range/Units 20:03 20:44 03:54 RBC 2.85 L (4.30-5.90) m/uL Hgb 7.9 L (13.0-17.5) gm/dL Hct 24.8 L (39.0-53.0) % Sodium (137-145) mmol/L BUN (9-20) mg/dL Creatinine (0.66-1.25) mg/dL POC Glucose (mg/dL) 69 L 150 H (70-110) mg/dL Calcium (8.4-10.2) mg/dL 03/14/23 03/14/23 Range/Units 03:54 06:47 RBC (4.30-5.90) m/uL Hgb (13.0-17.5) gm/dL Hct (39.0-53.0) % Sodium 133 L (137-145) mmol/L BUN 41 H (9-20) mg/dL Creatinine 3.24 H (0.66-1.25) mg/dL POC Glucose (mg/dL) 131 H (70-110) mg/dL Calcium 7.8 L (8.4-10.2) mg/dL Microbiology - Last 24 Hours (Table) 03/10/23 10:12 Gram Stain - Final Bronchial Washings - Left Bronchial Washings Culture - Final Assessment and Plan Assessment: This is a 63-year-old gentleman who presented to the emergency department on 02/28/2022 since was found on the floor by his father and he had generalized weakness. Patient while he was in observation, had witnessed PEA cardiac arrest possibly about less than 5 minutes. He has Legionella pneumonia. Altered mental status due to septic encephalopathy from pneumonia and metabolic encephalopathy in which had acute on chronic renal failure--mentation is improving. Status post cardiopulmonary arrest with downtime < 5 minutes. Patient is status post extubation. Patient is following directions, much improved. Community acquire pneumonia/sepsis due to Legionalla Pneumonia Acute on chronic renal faliure and getting dialysis during this admission--trending down Acute hypoxemic respiratory failure requiring intubation DM Acute rhabdomyolysis--likely since was found down, now normal. Plan: * Patient is status post extubation. He is doing much better. Patient is g etting more oriented and examination is improving. Patient still appears to be quite generalized weak that is reported by Dr. Naylor. Upon seeing him patient was feeling down and he stated that he is not getting get out of the hospital and kept on saying "I do not care any more". * Patient is depressed and is in tear. Psychiatry is consulted. * CT head revealed no acute intracranial abnormality. Mild to moderate generalized brain atrophy and chronic microvascular ischemic changes. I personally reviewed CT head, agree with the findings. There is slight prominence of the ventricles, slightly more than amount of cortical atrophy. Clinical correlation recommended for possible NPH. There is evidence of old lacunar stroke left thalamus. * EEG was performed, which was abnormal due to background slowing of moderate to severe degree. This is suggestive of generalized cerebral dysfunction, as can be seen with toxic metabolic encephalopathy or related to diffuse structural brain abnormality or medication effect. Clinical correlation is recommended. No epileptiform activity was seen. * TSH 1.48, ammonia level < 9, Vitamin B12 1213, folate 5.50 and repeat CK level 63. All tests normal, but folate borderline, we'll start folate 1 mg daily. * I.D. is on board. * Will defer the rest of medical management to the primary team and other specialist. * The plan is discussed with primary team. There is no further neurological work-up. Will sign off. Please reconsult if needed. Time with Patient: Less than 30
--- NOTE | 2023-03-14 13:47 | P.PN ---
Subjective Progress Note Date: 03/14/23 Principal diagnosis: Pulseless electrical activity cardiac arrest I am seeing this patient in new consultation today 03/01/2023 in the intensive care unit, after the patient had a witnessed PEA cardiac arrest while on the Observation unit. Patient is a 62-year-old white male with past medical history significant for diabetes mellitus, diabetic foot ulcers, hypertension, hype rlipidemia, iron deficiency anemia, chronic kidney disease. Patient is currently sedated and intubated on the mechanical ventilator. He was admitted yesterday morning, after being found on the floor by his father. Apparently, the patient denied hitting his head or losing consciousness. Patient does have diabetes mellitus, and his blood sugars had been running high at home. Chest x-ray on admission showed a left lower lobe infiltrate consistent with community acquired pneumonia. Patient did have a fever with a T-max of 100.7F. Apparently, after being admitted to the observation unt, the patient was noted to have low blood pressure. The patient was given 1 L normal saline bolus and 5 amps sodium bicarb. Soon after, the patient had a cardiac arrest. Presenting rhythm was PEA. Patient had a limited downtime of less than 5 minutes. He received 1 mg of epinephrine. Rapid sequence intubation was performed. The patient was then transferred to the intensive care unit. Dr. Lacy did come in and place a left subclavian central line catheter and a right wrist arterial line. Patient was also noted to be in acute renal failure. He did have a right femoral hemodialysis catheter placed earlier, and is currently undergoing emergent hemodialysis. Patient is currently in the intensive care unit, intubated to the mechanical ventilator. He is sedated on propofol which is currently infusing at 40 mcg/kg/m. He is synchronous with the mechanical ventilator. Postintubation ABG shows a pO2 greater than 400, pCO2 27, pH of 7.43, this was done on ventilator settings of assist control, respiratory rate 22, tidal volume 500, FiO2 100%, and PEEP of 5. Patient's FiO2 was dropped to 50%. Peak pressures 27. Post intubation chest x-ray shows the endotracheal tube 4 cm above the anika. Oral gastric tube could be advanced 5 cm. There is a persistent left lower lobe infiltrate. Most recent CBC from yesterday evening showed a WBC count of 7.8, hemoglobin 7.1, hematocrit 22.7, platelets 120. No obvious acute blood loss was noted. Most recent available BMP shows sodium 140, potassium 4.6, chloride 107, serum bicarb 15, BUN 107, creatinine 7.82, glucose 282. Acetone negative. LFTs not elevated. CPK 1240. Currently, 3 A sodium bicarb in D5W is infusing at 100 ML's per hour. There is also normal saline infusing at 130 ML's per hour. Patient is currently anuric. Troponins elevated at 0.457, 0.388, and 0.422 respectively. ECG shows normal sinus rhythm without any obvious acute ischemic changes. Urinalysis not concerning for UTI. Lactic acid level was elevated at 4 is down 1.6. Negative for influenza, RSV, COVID-19. Patient was started on empiric antibiotics in the form of ceftriaxone and azithromycin. Currently afebrile. Patient's condition is currently critical, moderate in the intensive care unit. On 03/10/2023, the patient is resting comfortably. Breathing is nonlabored and the patient is on 4 L of oxygen by nasal cannula with a pulse ox of 97%. He has a IV daily for enteral feeding for nutritional support. His chest x-ray from today is showing significant volume loss in the left lung. Suspect mucus plugging as the patient has of optimal ability to do adequate pulmonary toileting. Based on that, the plan was to do a bedside bronchoscopy for ther apeutic airway suctioning. . It is possible also that there may be some limited pleural effusion and left lung. The patient was echoes at 12.3, hemoglobin is 8.6, platelet count is 175, BUN is at 75 with a creatinine of 3.06. Sodium is at 133. Last hemodialysis session was yesterday. Note that the patient had a Legionella pneumonia in the left lower lobe and the patient continued to have a persistent consolidation of the left lung base. He remains on Levaquin. She remains on Eraxis. Infectious diseases on the case. He is on no pressors at this point in time. On Levemir insulin, 15 units at bedtime and 10 units in the morning. Is also on NovoLog siding scale coverage. He remains on metoprolol 25 mg 3 times a day.. Last hemodialysis session was yesterday and the patient is producing adequate amount of urine output for the time being. . On 03/11/2023, the patient is post bronchoscopy. The repeat chest x-ray was done today and the patient has ongoing consolidation of the left lung base related to residual pneumonia. Is improvement in volume status examination of the left lung. He remains on oxygen at 4 L/m nasal cannula. He continues to receive enteral feeding for nutritional support. He is still weak and having episodes of confusion. Is communicating for now. He has profound motor weakness in all 4 extremities. He remains on Levaquin. No nausea. No abdominal pain or distention. He is producing urine output. No plans for dialysis today. He has of 87 with a creatinine of 3.97 and sodium is 135. WBC count 10.7 with a hemoglobin of 7.9. Oxygenation is further improved. The patient's current on room air oxygen with a pulse ox of 93%. He is on Levemir insulin 10 units in addition to sliding scale coverage. Heparin subcu for prophylaxis. Patient was reevaluated today on 03/12/2023, patient remains in the ICU, continues to have a significant left lower lobe consolidation. Remains on Lasix drip at 10 mg per hour, patient has excellent urine output, -3 L in the last 24 hours. Patient remains on Eraxis and on Levaquin. Ultrasound of the chest was ordered today to consider left-sided thoracentesis if there is enough fluid to drain. His BUN is 97 creatinine 4.84, his last dialysis was on 03/09 may be considered for hemodialysis catheter placement. Patient is wondering when he could go home, and I explained to them that he is not quite ready continues to have many issues to address. And he needs to BE cleared by all the consultants. Continues to have chronic wounds in both feet. Continues to be followed by many consultants. WBC count today is 7.8 hemoglobin 7.6 electrolytes are normal BUN is 97 creatinine 4.84. Ultrasound of the chest failed to show any pleural effusion in the left pleural space, hence the findings are mostly findings of strictly consolidation in the left lower lobe. Patient will reevaluated today on 03/13/23, remains in the ICU, patient remains on Lasix at 5 mg per hour, he has excellent urine output however his renal functioning seems to be getting worse. He was seen by nephrology today, and now the recommendation is to place a permacath, and possibly start dialysis on this patient. Creatinine is up to 5.99. In the meantime the patient could be considered for transfer to a [facility]monitor bed on [facility]. Patient is still receiving treatment for his Legionella pneumonia and sepsis. Remains on Levaquin. Chest x-ray showed significant improvement today in his left lower lobe consolidation, and again his ultrasound did not show any fluid to drain WBC count is 8 hemoglobin 7.5 electrolytes are relatively normal except for potassium of 5.4 and he had a BUN of 101 creatinine 5.99 Patient was today on 03/14/23, patient continues to feel down, refusing any treatment including oral medications, however the patient seems to be in no distress. On room air with O2 sat shows 95%, he is hemodynamically stable with blood pressure of 116/83, patient is supposed to undergo hemodialysis today, hopefully he doesn't declined hemodialysis. Patient was seen by psychiatry, and he is refusing to take his medication orally. Labs are basically unremarkable including CBC and basic metabolic profile is creatinine is 3.24 and he is supposed to get dialysis today. Objective - Vital Signs Vital signs: Vital Signs Temp 97.6 F 03/14/23 09:51 Pulse 89 03/14/23 09:51 Resp 14 03/14/23 09:51 BP 116/83 03/14/23 09:51 Pulse Ox 95 03/14/23 09:51 FiO2 40 03/11/23 08:05 Intake & Output 03/13/23 03/14/23 03/14/23 18:59 06:59 18:59 Intake Total 300 400 Output Total 750 1975 300 Balance -450 -1575 -300 Weight 76.7 kg 76.7 kg Intake: Intake, IV Titration 100 Amount Furosemide 100 mg In 100 Sodium Chloride 0.9% 90 ml @ 5 MG/HR 5 mls/hr IV .Q20H [facility] Rx#:[id number] Oral 200 Hemodialysis 400 Output: Urine 750 575 Stool 300 Hemodialysis 1400 Other: Voiding Method Indwelling Catheter Indwelling Catheter Indwelling Catheter ABP, PAP, CO, CI - Last Documented Arterial Blood Pressure 72/72 - Exam Physical Exam: Revealed a 62-year-old white male in no distress on room air Head: Atraumatic, normocephalic. HEENT:[Neck is supple.] [No neck masses.] [No thyromegaly.] [No JVD.] Chest: [Diminished breath sound bilaterally especially at the left base no rhonchi and no wheezes Cardiac Exam: [Normal S1 and S2, no S3 gallop, no murmur.] Abdomen: [Soft, nontender, no megaly, no rebound, no guarding, normal bowel sounds.] Extremities: [No clubbing, no edema, no cyanosis.] Multiple ones in lower extremities however covered with sterile dressing Neurological Exam: Alert oriented 3, no focal deficit Psychiatric: Depressed mood, flat affect, normal mental status otherwise - Labs CBC & Chem 7: 03/14/23 03:54 03/14/23 03:54 Labs: Abnormal Lab Results - Last 24 Hours (Table) 03/13/23 03/13/23 03/14/23 Range/Units 20:03 20:44 03:54 RBC 2.85 L (4.30-5.90) m/uL Hgb 7.9 L (13.0-17.5) gm/dL Hct 24.8 L (39.0-53.0) % Sodium (137-145) mmol/L BUN (9-20) mg/dL Creatinine (0.66-1.25) mg/dL POC Glucose (mg/dL) 69 L 150 H (70-110) mg/dL Calcium (8.4-10.2) mg/dL 03/14/23 03/14/23 Range/Units 03:54 06:47 RBC (4.30-5.90) m/uL Hgb (13.0-17.5) gm/dL Hct (39.0-53.0) % Sodium 133 L (137-145) mmol/L BUN 41 H (9-20) mg/dL Creatinine 3.24 H (0.66-1.25) mg/dL POC Glucose (mg/dL) 131 H (70-110) mg/dL Calcium 7.8 L (8.4-10.2) mg/dL Assessment and Plan Assessment: Impression: Witnessed PEA cardiac arrest with down time of less than 5 minutes Acute anoxic encephalopathy Acute hypoxic respiratory failure secondary to above Acute left lower lobe pneumonia secondary to Legionella pneumonia Severe cardiomyopathy and ejection fraction of 20-25% Cardiogenic shock Acute metabolic anion gap metabolic acidosis Chronic stage IV kidney disease Acute rhabdomyolysis Anemia of chronic disease Insulin-dependent diabetes Dyslipidemia Superficial vein thrombosis of the cephalic veins based on ultrasound Chronic diarrhea negative C. difficile screening Chronic draining once in both feet recommendation: Continue hemodialysis Transfer to a monitor bed Psychiatry to reevaluate Continue aggressive pulmonary toileting and chest PT Continue Levaquin for his Legionella pneumonia We will continue to follow Time with Patient: Less than 30
--- NOTE | 2023-03-14 13:54 | P.PN ---
Subjective Patient is seen in follow-up for acute kidney injury on chronic kidney disease. Started on hemodialysis 03/01/2023. Nonoliguric. Has permacath. Scheduled for dialysis today. Vital signs are stable. Off vasopressor support. General: Resting in bed. HEENT: NG tube noted. LUNGS: Scattered rhonchi. HEART: Rate and Rhythm are regular. ABDOMEN: No distention. EXTREMITITES: No edema. Objective - Vital Signs Vital signs: Vital Signs Temp 97.6 F 03/14/23 09:51 Pulse 89 03/14/23 09:51 Resp 14 03/14/23 09:51 BP 116/83 03/14/23 09:51 Pulse Ox 95 03/14/23 09:51 FiO2 40 03/11/23 08:05 Intake & Output 03/13/23 03/14/23 03/14/23 18:59 06:59 18:59 Intake Total 300 400 Output Total 750 1975 300 Balance -450 -1575 -300 Weight 76.7 kg 76.7 kg Intake: Intake, IV Titration 100 Amount Furosemide 100 mg In 100 Sodium Chloride 0.9% 90 ml @ 5 MG/HR 5 mls/hr IV .Q20H [facility] Rx#:[id number] Oral 200 Hemodialysis 400 Output: Urine 750 575 Stool 300 Hemodialysis 1400 Other: Voiding Method Indwelling Catheter Indwelling Catheter Indwelling Catheter ABP, PAP, CO, CI - Last Documented Arterial Blood Pressure 72/72 - Labs CBC & Chem 7: 03/14/23 03:54 03/14/23 03:54 Labs: Abnormal Lab Results - Last 24 Hours (Table) 03/13/23 03/13/23 03/14/23 Range/Units 20:03 20:44 03:54 RBC 2.85 L (4.30-5.90) m/uL Hgb 7.9 L (13.0-17.5) gm/dL Hct 24.8 L (39.0-53.0) % Sodium (137-145) mmol/L BUN (9-20) mg/dL Creatinine (0.66-1.25) mg/dL POC Glucose (mg/dL) 69 L 150 H (70-110) mg/dL Calcium (8.4-10.2) mg/dL 03/14/23 03/14/23 Range/Units 03:54 06:47 RBC (4.30-5.90) m/uL Hgb (13.0-17.5) gm/dL Hct (39.0-53.0) % Sodium 133 L (137-145) mmol/L BUN 41 H (9-20) mg/dL Creatinine 3.24 H (0.66-1.25) mg/dL POC Glucose (mg/dL) 131 H (70-110) mg/dL Calcium 7.8 L (8.4-10.2) mg/dL Assessment and Plan Plan: Assessment: 1. Acute kidney injury secondary to ATN secondary to cardiopulmonary arrest. Started on hemodialysis 03/01/2023. Has a permacath. Nonoliguric. 2. Cardiopulmonary arrest. 3. 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 CKD appears to have progressed with creatinine in the range of 3.1-3.4 in April and July 2022. 4. Chronic kidney disease mineral bone disease maintained on Calcitrol. 5. Diabetes mellitus. 6. Shock s/p Levophed. 7. Anemia of chronic kidney disease. High ferritin noted. On Aranesp. 8. Metabolic acidosis secondary to chronic kidney disease on oral bicarb. Plan: Hemodialysis today. Next treatment Sunday. Add torsemide 40 mg once daily. Phosphorus 5.2 dated 03/05/2023. Will repeat. Outpatient dialysis to be set up by director of casework department.
[2023-03-14] MEDS: ANIDULAFUNGIN 100 MG in SODIUM CHLORIDE 0.9% 100 ML IVPB SCH (14:34)
--- NOTE | 2023-03-14 15:19 | P.PN ---
Subjective Progress Note Date: 03/14/23 62 year old M with PMH of CKD, hypertension, gout, diabetes mellitus presents to the ED after being found down. Patient is lethargic and sleepy and majority of history is provided by his father. Patient is single, lives alone, takes care of his ADLs and IADL's and normally very active. Father states he has been dealing with a cold over the past week. Symptoms include cough, rhinorrhea, malaise, diarrhea, nausea and vomiting, poor appetite. Last time seen normal was yesterday at 6:30PM when he went to bed. Found down this morning by his father, apparently tried to use the washroom last night, unable to make it to bed, laid on the floor all night. EMS was subsequently called. In the ED, he underwent extensive workup. Tmax 100.7F. HR in the 90s. BP 92/47. 92% on RA. CBC showed leukocytosis of 11.1, hemoglobin of 8.3 and platelet count 142. INR 1.2 CMP showed potassium of 5.4, bicarb 10, BUN 113, creatinine 8.47, glucose 324, total bilirubin 2. Lactic acid 2.1. CPK 1240. Troponin 0.457. Acetone negative. Influenza, RSV, COVID-19 negative. Chest x-ray reviewed by me showed large left sided PNA. EKG showed sinus rhythm with no ST elevation. CODE BLUE was called yesterday. Patient was found to be in PEA arrest. He was given multiple amps of sodium bicarb and epinephrine. Patient was intubated. ROSC was achieved and he was transferred to the ICU. Dr. Lacy, Dr. Juarez and Dr. Simon was contacted. Emergent hemodialysis access was obtained and patient was started on dialysis. Patient was intubated and transferred to the ICU. He maintained on Levophed which was eventually weaned off. Echocardiogram as done which showed ejection fraction 20-25% with moderate TR and MR and therefore cardiology was consulted. Renal ultrasound showed gallbladder wall thickening but no signs of hydrone phrosis or nephrolithiasis. His legionella urine antigen Positive and he was subsequently transitioned to Levaquin. Patient was not doing well with sedation holidays and neurology was subsequently consulted. He underwent a head CT which showed chronic microvascular ischemic changes and an EEG which showed moderate to severe background slowing. Left upper extremity venous Doppler showed no evidence of DVT but did show cephalic vein superficial thrombosis. He was successfully extubated on 03/08. Patient developed mucous plugging with white out on the left. He subsequently underwent bronchoscopy with Bronchoalveolar lavage on 03/10 showed mucous plug in the LLL and L mainstem bronchus. He was maintained on a Lasix drip, diuresing well but renal function continued to worsen. Plans are made for permacath on 03/13 and patient was started on HD. In the mean time, Psyc was consulted due to severe depression, he did not meet inpatient criteria but started on Prozac. Per Cardiology, he will need a coronary angiogram prior to discharge. 03/14 Patient was seen and examined. Flat affect. Permacath inserted in the right jugular by Vascular 03/13. Initiated on HD 03/13. CBC Hg 7.9. CMP Na 133, BUN 41, Cr 3.24, Ca 7.8. CXR shows persistent LLL infiltrate. Plans for coronary angiogram after HD per Cardiology. Antibiotics include Levaquin and Anidulafungin. Vital signs reviewed General: nontoxic, no distress, appears at stated age Cardiovascular: S1S2 reg, no murmur Lungs:Decreased BS bilateral, no rhonchi, no rales , no accessory muscle use Abdominal: soft, nontender to palpation, no guarding, no appreciable organomegaly Ext: no gross muscle atrophy, diffuse anasarca, no contractures Neuro: moving all 4 extremities independently. Psych: Flat affect Severe depression Acute kidney injury on chronic kidney disease Acute systolic cardiomyopathy with ejection fraction 20-25% Troponin elevation PEA arrest Acute hypoxic respiratory failure, extubated 03/09 Legionaires PNA with septic shock, now resolved Left mucus plug, s/p bronch and BAL 03/10 Oral pharyngeal candidiasis Acute metabolic encephalopathy Normocytic anemia Diabetes mellitus with hyperglycemia Chronic conditions: Hypertension, gout Resolved: Metabolic acidosis, Hypokalemia, Rhabdomyolysis, Thrombocytopenia Based on my assessment of this patient, this patient meets a moderate complexity level of care. Patient has an acute diagnosis of septic shock secondary to Legionaire PNA that poses a threat to life or bodily function. Currently off pressors. Extubated on 03/09. Currently on Anidulafungin and Levaquin. Diuresing with Lasix drip. Severe depression: Denies SI/HI/AH/VH. No guns at home. Prozac 20 mg PO QD. Psychiatry on board. Acute kidney injury on chronic kidney disease: Calcitriol 0.25 mcg PO MWF. Aranesp 40 mcg SQ weekly. Midodrine 2.5 mg PO BID PRN for hypotension. Sodium bicarbonate 650 mg PO BID. Started back on HD 03/13. Nephrology on board. Acute systolic cardiomyopathy: EF 20-25% per Echocardiogram. Metoprolol 25 mg PO TID. Strict intake/outtake. Daily weights. Will need coronary angiogram prior to discharge. Cardiology on board. Troponin elevation: Likely due to demand ischemia. Trop flat. Echocardiogram as above. Cardiology on board. PEA arrest Acute hypoxic respiratory failure: Extubated 03/09 Legionaires PNA with septic shock: Septic shock now resolved. Levaquin 500 mg IV Q48H D#12, Zosyn 3.375 g IV Q8H now discontinued on 03/01-03/05 Left mucus plug: Status post bronch and BAL 03/10. Aggressive pulmonary toilet. Oral pharyngeal candidiasis: Eraxis 100 mg IV piggyback daily D #9 Acute metabolic encephalopathy: CT head negative. B12, TSH, Ammonia wnl. Normocytic anemia: AOCD Transfuse if Hg < 7. Daily CBC. Diabetes mellitus with hyperglycemia: A1c 8.2. ISS. Levemir 10 units QD. CODE STATUS: FULL CODE. DVT Prophylaxis: Heparin SQ. GI Prophylaxis: Protonix IV Designated medical POA if patient is not able to make medical decisions for themselves: Father I have reviewed the following oracle application consultant notes: Pulm, ID, Psyc, Cardio, Nephro note. I have reviewed the results of the following tests: CBC, BMP. I have ordered the following tests: CBC, BMP. I have discussed the care of this patient with the following independent historian: I have independently interpreted the following test below: CXR as above. I have discussed the management of this patient with the following physician: Objective - Vital Signs Vital signs: Vital Signs Temp 97.7 F 03/14/23 04:00 Pulse 78 03/14/23 04:00 Resp 12 03/14/23 04:00 BP 120/66 03/14/23 04:00 Pulse Ox 94 L 03/14/23 04:00 FiO2 40 03/11/23 08:05 Intake & Output 03/13/23 03/14/23 03/14/23 18:59 06:59 18:59 Intake Total 300 400 Output Total 750 1974 Balance -450 -1575 Weight 76.7 kg Intake: Intake, IV Titration 100 Amount Furosemide 100 mg In 100 Sodium Chloride 0.9% 90 ml @ 5 MG/HR 5 mls/hr IV .Q20H [facility] Rx#:[id number] Oral 200 Hemodialysis 400 Output: Urine 750 575 Hemodialysis 1400 Other: Voiding Method Indwelling Catheter Indwelling Catheter ABP, PAP, CO, CI - Last Documented Arterial Blood Pressure 72/72 - Labs CBC & Chem 7: 03/14/23 03:54 03/14/23 03:54 Labs: Abnormal Lab Results - Last 24 Hours (Table) 03/13/23 03/13/23 03/14/23 Range/Units 20:03 20:44 03:54 RBC 2.85 L (4.30-5.90) m/uL Hgb 7.9 L (13.0-17.5) gm/dL Hct 24.8 L (39.0-53.0) % Sodium (137-145) mmol/L BUN (9-20) mg/dL Creatinine (0.66-1.25) mg/dL POC Glucose (mg/dL) 69 L 150 H (70-110) mg/dL Calcium (8.4-10.2) mg/dL 03/14/23 03/14/23 Range/Units 03:54 06:47 RBC (4.30-5.90) m/uL Hgb (13.0-17.5) gm/dL Hct (39.0-53.0) % Sodium 133 L (137-145) mmol/L BUN 41 H (9-20) mg/dL Creatinine 3.24 H (0.66-1.25) mg/dL POC Glucose (mg/dL) 131 H (70-110) mg/dL Calcium 7.8 L (8.4-10.2) mg/dL Microbiology - Last 24 Hours (Table) 03/10/23 10:12 Gram Stain - Final Bronchial Washings - Left Bronchial Washings Culture - Final
[2023-03-14 16:24] LABS: Glucose,Whole Blood 78 mg/dL (70-110)
[2023-03-14] MEDS: MELATONIN 3 MG TABLET PO SCH (20:47)
[2023-03-14 21:00] LABS: Glucose,Whole Blood 124 mg/dL (70-110)
[2023-03-15 03:39] LABS: HCT 26.7 % (39.0-53.0); HGB 8.4 gm/dL (13.0-17.5); Hypochromasia Slight; MCH 27.8 pg (25.0-35.0); MCHC 31.4 g/dL (31.0-37.0); MCV 88.7 fL (80.0-100.0); Mean Platelet Volume 8.5; Platelet Count 213 k/uL (150-450); RBC 3.01 m/uL (4.30-5.90); RDW 15.4 % (11.5-15.5); WBC 4.5 k/uL (3.8-10.6)
[2023-03-15 04:00] LABS: African American GFR (CKD) 36 (>60 ml/min/1.73 sqM); Anion Gap 8 mmol/L; Blood Urea Nitrogen 25 mg/dL (9-20); Carbon Dioxide 28 mmol/L (22-30); Chloride 97 mmol/L (98-107); Glucose 98 mg/dL (74-99); Non-African American GFR(CKD) 31 (>60 ml/min/1.73 sqM); Potassium 3.8 mmol/L (3.5-5.1); Sodium 133 mmol/L (137-145)
[2023-03-15 06:44] LABS: Glucose,Whole Blood 118 mg/dL (70-110)
[2023-03-15] MEDS: INSULIN DETEMIR (LEVEMIR) 100 UNIT/ML SYR SQ SCH (06:45)
[2023-03-15] MEDS: INSULIN ASPART (NovoLOG) 100 UNIT/ML VIAL SQ SCH ×4 (06:46→20:44)
--- NOTE | 2023-03-15 08:29 | P.PN ---
Subjective Progress Note Date: 03/15/23 Principal diagnosis: Cardiomyopathy/cardiac arrest The patient is a 62-year-old gentleman who was admitted to the hospital after a fall and subsequently he developed right wrist with PEA. Further investigation including an echo was performed and showed severe cardiomyopathy. Troponin was mildly elevated. He was in renal failure. He was anemic. In 03/12/2023 The patient was seen and evaluated. Currently he is stable. He is on Lasix drip by the nephrology service. He is on metoprolol only because his pressure has been on the low side. He still anemic. He still renal failure. The decision to be made regarding permanent hemodialysis catheter. From the [facility] standpoint of view, I would continue the current medical regimen to renal the patient need permanent dialysis or not. Definitely heart catheterization need to be done in the next few days or as an outpatient to rule out severe underlying coronary artery disease for the cardiomyopathy. Meanwhile will c ontinue the current medical regimen. On examination he does have regular rhythm with diminished breathing sounds bilaterally and bilateral lower extremity is edema noted. 03/13/2023 [place] the patient was seen and evaluated this morning. The plan is to pursue with replacing the dialysis catheter. His creatinine has not been improving in spite of patient's making urine. Otherwise he remains stable hemodynamically. He remains in normal sinus mechanism. He does need to undergo coronary angiogram down the line to find out the etiology for cardiomyopathy. Meanwhile will continue the current medical regimen. He continues to be on Lasix IV by the nephrology service. The examination is remarkable for mild change in mental status with regular rate and rhythm and diminished breathing sounds bilaterally March [id number] The patient was seen and evaluated this morning. The creatinine has been improving. He remains in sinus mechanism. No chest pain or chest discomfort. The examination is remarkable for diminished breathing sounds bilaterally and mild chronic skin changes. His mentation has improved 03/15/2023 The patient was seen and evaluated this morning. His creatinine has been trending down. The hemoglobin remains stable. He is asymptomatic. He is maintaining normal sinus mechanism. For the cardiovascular medications he is on metoprolol at this point. He needs to be on ELROY inhibitor or ARB down the line 160 kidney function improved. He also needs to undergo coronary angiogram with the kidney function improved. Meanwhile will continue the current medical r egimen. Assessment History of cardiac arrest as described above Cardiomyopathy of unknown etiology Renal failure Anemia Multiple comorbid conditions Plan Continue the current dose of beta rhys Consider maximize medical treatment for cardiomyopathy Consider DC midodrine Procedure coronary angiogram after dialysis Follow-up with the patient Objective - Vital Signs Vital signs: Vital Signs Temp 97.7 F 03/15/23 04:00 Pulse 85 03/15/23 04:00 Resp 12 03/15/23 04:00 BP 110/82 03/15/23 04:00 Pulse Ox 97 03/15/23 04:00 FiO2 40 03/11/23 08:05 Intake & Output 03/14/23 03/15/23 03/15/23 18:59 06:59 18:59 Intake Total 500 Output Total 1600 625 Balance -1100 -625 Weight 76.7 kg 73.4 kg Intake: Hemodialysis 500 Output: Urine 625 Stool 600 Hemodialysis 1000 Other: Voiding Method Indwelling Catheter Indwelling Catheter ABP, PAP, CO, CI - Last Documented Arterial Blood Pressure 72/72 - Labs CBC & Chem 7: 03/15/23 03:08 03/15/23 03:08 Labs: Abnormal Lab Results - Last 24 Hours (Table) 03/14/23 03/14/23 03/15/23 Range/Units 14:20 20:59 03:08 RBC 3.01 L (4.30-5.90) m/uL Hgb 8.4 L (13.0-17.5) gm/dL Hct 26.7 L (39.0-53.0) % Sodium (137-145) mmol/L Chloride (98-107) mmol/L BUN (9-20) mg/dL Creatinine (0.66-1.25) mg/dL POC Glucose (mg/dL) 124 H (70-110) mg/dL Calcium (8.4-10.2) mg/dL Phosphorus 5.4 H (2.5-4.5) mg/dL 03/15/23 03/15/23 Range/Units 03:08 06:43 RBC (4.30-5.90) m/uL Hgb (13.0-17.5) gm/dL Hct (39.0-53.0) % Sodium 133 L (137-145) mmol/L Chloride 97 L (98-107) mmol/L BUN 25 H (9-20) mg/dL Creatinine 2.19 H (0.66-1.25) mg/dL POC Glucose (mg/dL) 118 H (70-110) mg/dL Calcium 8.0 L (8.4-10.2) mg/dL Phosphorus (2.5-4.5) mg/dL
[2023-03-15] MEDS: SODIUM BICARBONATE TAB 650 MG TAB PO SCH ×2 (10:16→20:35)
[2023-03-15] MEDS: allopurinoL 100 MG TAB PO SCH (10:16)
[2023-03-15] MEDS: FLUoxetine HCL 20 MG CAP PO SCH (10:16)
[2023-03-15] MEDS: PANTOPRAZOLE 40 MG/10 ML VIAL IVP SCH (10:16)
[2023-03-15] MEDS: HEPARIN SODIUM,PORCINE 5,000 UNIT/ML 1 ML VIAL SQ SCH ×2 (10:16→20:36)
[2023-03-15] MEDS: TORSEMIDE 20 MG TAB PO SCH (10:17)
[2023-03-15] MEDS: FOLIC ACID 1 MG TAB PO SCH (10:17)
[2023-03-15] MEDS: METOPROLOL TARTRATE 25 MG TAB PO SCH ×3 (10:17→20:35)
[2023-03-15 11:47] LABS: Glucose,Whole Blood 54 mg/dL (70-110)
[2023-03-15] MEDS: ANIDULAFUNGIN 100 MG in SODIUM CHLORIDE 0.9% 100 ML IVPB SCH (12:00)
--- NOTE | 2023-03-15 12:04 | P.PN ---
Subjective Progress Note Date: 03/15/23 Principal diagnosis: Pulseless electrical activity cardiac arrest I am seeing this patient in new consultation today 03/01/2023 in the intensive care unit, after the patient had a witnessed PEA cardiac arrest while on the Observation unit. Patient is a 62-year-old white male with past medical history significant for diabetes mellitus, diabetic foot ulcers, hypertension, hype rlipidemia, iron deficiency anemia, chronic kidney disease. Patient is currently sedated and intubated on the mechanical ventilator. He was admitted yesterday morning, after being found on the floor by his father. Apparently, the patient denied hitting his head or losing consciousness. Patient does have diabetes mellitus, and his blood sugars had been running high at home. Chest x-ray on admission showed a left lower lobe infiltrate consistent with community acquired pneumonia. Patient did have a fever with a T-max of 100.7F. Apparently, after being admitted to the observation unt, the patient was noted to have low blood pressure. The patient was given 1 L normal saline bolus and 5 amps sodium bicarb. Soon after, the patient had a cardiac arrest. Presenting rhythm was PEA. Patient had a limited downtime of less than 5 minutes. He received 1 mg of epinephrine. Rapid sequence intubation was performed. The patient was then transferred to the intensive care unit. Dr. Lacy did come in and place a left subclavian central line catheter and a right wrist arterial line. Patient was also noted to be in acute renal failure. He did have a right femoral hemodialysis catheter placed earlier, and is currently undergoing emergent hemodialysis. Patient is currently in the intensive care unit, intubated to the mechanical ventilator. He is sedated on propofol which is currently infusing at 40 mcg/kg/m. He is synchronous with the mechanical ventilator. Postintubation ABG shows a pO2 greater than 400, pCO2 27, pH of 7.43, this was done on ventilator settings of assist control, respiratory rate 22, tidal volume 500, FiO2 100%, and PEEP of 5. Patient's FiO2 was dropped to 50%. Peak pressures 27. Post intubation chest x-ray shows the endotracheal tube 4 cm above the anika. Oral gastric tube could be advanced 5 cm. There is a persistent left lower lobe infiltrate. Most recent CBC from yesterday evening showed a WBC count of 7.8, hemoglobin 7.1, hematocrit 22.7, platelets 120. No obvious acute blood loss was noted. Most recent available BMP shows sodium 140, potassium 4.6, chloride 107, serum bicarb 15, BUN 107, creatinine 7.82, glucose 282. Acetone negative. LFTs not elevated. CPK 1240. Currently, 3 A sodium bicarb in D5W is infusing at 100 ML's per hour. There is also normal saline infusing at 130 ML's per hour. Patient is currently anuric. Troponins elevated at 0.457, 0.388, and 0.422 respectively. ECG shows normal sinus rhythm without any obvious acute ischemic changes. Urinalysis not concerning for UTI. Lactic acid level was elevated at 4 is down 1.6. Negative for influenza, RSV, COVID-19. Patient was started on empiric antibiotics in the form of ceftriaxone and azithromycin. Currently afebrile. Patient's condition is currently critical, moderate in the intensive care unit. On 03/10/2023, the patient is resting comfortably. Breathing is nonlabored and the patient is on 4 L of oxygen by nasal cannula with a pulse ox of 97%. He has a IV daily for enteral feeding for nutritional support. His chest x-ray from today is showing significant volume loss in the left lung. Suspect mucus plugging as the patient has of optimal ability to do adequate pulmonary toileting. Based on that, the plan was to do a bedside bronchoscopy for ther apeutic airway suctioning. . It is possible also that there may be some limited pleural effusion and left lung. The patient was echoes at 12.3, hemoglobin is 8.6, platelet count is 175, BUN is at 75 with a creatinine of 3.06. Sodium is at 133. Last hemodialysis session was yesterday. Note that the patient had a Legionella pneumonia in the left lower lobe and the patient continued to have a persistent consolidation of the left lung base. He remains on Levaquin. She remains on Eraxis. Infectious diseases on the case. He is on no pressors at this point in time. On Levemir insulin, 15 units at bedtime and 10 units in the morning. Is also on NovoLog siding scale coverage. He remains on metoprolol 25 mg 3 times a day.. Last hemodialysis session was yesterday and the patient is producing adequate amount of urine output for the time being. . On 03/11/2023, the patient is post bronchoscopy. The repeat chest x-ray was done today and the patient has ongoing consolidation of the left lung base related to residual pneumonia. Is improvement in volume status examination of the left lung. He remains on oxygen at 4 L/m nasal cannula. He continues to receive enteral feeding for nutritional support. He is still weak and having episodes of confusion. Is communicating for now. He has profound motor weakness in all 4 extremities. He remains on Levaquin. No nausea. No abdominal pain or distention. He is producing urine output. No plans for dialysis today. He has of 87 with a creatinine of 3.97 and sodium is 135. WBC count 10.7 with a hemoglobin of 7.9. Oxygenation is further improved. The patient's current on room air oxygen with a pulse ox of 93%. He is on Levemir insulin 10 units in addition to sliding scale coverage. Heparin subcu for prophylaxis. Patient was reevaluated today on 03/12/2023, patient remains in the ICU, continues to have a significant left lower lobe consolidation. Remains on Lasix drip at 10 mg per hour, patient has excellent urine output, -3 L in the last 24 hours. Patient remains on Eraxis and on Levaquin. Ultrasound of the chest was ordered today to consider left-sided thoracentesis if there is enough fluid to drain. His BUN is 97 creatinine 4.84, his last dialysis was on 03/09 may be considered for hemodialysis catheter placement. Patient is wondering when he could go home, and I explained to them that he is not quite ready continues to have many issues to address. And he needs to BE cleared by all the consultants. Continues to have chronic wounds in both feet. Continues to be followed by many consultants. WBC count today is 7.8 hemoglobin 7.6 electrolytes are normal BUN is 97 creatinine 4.84. Ultrasound of the chest failed to show any pleural effusion in the left pleural space, hence the findings are mostly findings of strictly consolidation in the left lower lobe. Patient will reevaluated today on 03/13/23, remains in the ICU, patient remains on Lasix at 5 mg per hour, he has excellent urine output however his renal functioning seems to be getting worse. He was seen by nephrology today, and now the recommendation is to place a permacath, and possibly start dialysis on this patient. Creatinine is up to 5.99. In the meantime the patient could be considered for transfer to a 3 S. bad/monitor bed on [facility]. Patient is still receiving treatment for his Legionella pneumonia and sepsis. Remains on Levaquin. Chest x-ray showed significant improvement today in his left lower lobe consolidation, and again his ultrasound did not show any fluid to drain WBC count is 8 hemoglobin 7.5 electrolytes are relatively normal except for potassium of 5.4 and he had a BUN of 101 creatinine 5.99 Patient was today on 03/14/23, patient continues to feel down, refusing any treatment including oral medications, however the patient seems to be in no distress. On room air with O2 sat shows 95%, he is hemodynamically stable with blood pressure of 116/83, patient is supposed to undergo hemodialysis today, hopefully he doesn't declined hemodialysis. Patient was seen by psychiatry, and he is refusing to take his medication orally. Labs are basically unremarkable including CBC and basic metabolic profile is creatinine is 3.24 and he is supposed to get dialysis today. Reevaluated today on 03/15 patient is doing well, relatively asymptomatic, patient did undergo dialysis yesterday, being followed by cardiology and still considering cardiac catheterization on this patient after his kidney functioning improves and after hemodialysis. Today's BUN is 25 creatinine 2.19, steadily improving with hemodialysis. Chest x-ray continues to show left lower lobe atelectasis/pneumonia although clinically the patient is much better,, patient did have Legionella pneumonia treated Objective - Vital Signs Vital signs: Vital Signs Temp 97.7 F 03/15/23 08:00 Pulse 82 03/15/23 08:00 Resp 14 03/15/23 08:00 BP 132/80 03/15/23 08:00 Pulse Ox 96 03/15/23 08:00 FiO2 40 03/11/23 08:05 Intake & Output 03/14/23 03/15/23 03/15/23 18:59 06:59 18:59 Intake Total 500 Output Total 1600 625 Balance -1100 -625 Weight 76.7 kg 73.4 kg Intake: Hemodialysis 500 Output: Urine 625 Stool 600 Hemodialysis 1000 Other: Voiding Method Indwelling Catheter Indwelling Catheter Indwelling Catheter ABP, PAP, CO, CI - Last Documented Arterial Blood Pressure 72/72 - Exam Physical Exam: Revealed a 62-year-old white male in no distress on room air Head: Atraumatic, normocephalic. HEENT:[Neck is supple.] [No neck masses.] [No thyromegaly.] [No JVD.] Chest: [Diminished breath sound bilaterally especially at the left base no rhonchi and no wheezes Cardiac Exam: [Normal S1 and S2, no S3 gallop, no murmur.] Abdomen: [Soft, nontender, no megaly, no rebound, no guarding, normal bowel sounds.] Extremities: [No clubbing, no edema, no cyanosis.] Multiple ones in lower extremities however covered with sterile dressing Neurological Exam: Alert oriented 3, no focal deficit Psychiatric: Depressed mood, flat affect, normal mental status otherwise - Labs CBC & Chem 7: 03/15/23 03:08 03/15/23 03:08 Labs: Abnormal Lab Results - Last 24 Hours (Table) 03/14/23 03/14/23 03/15/23 Range/Units 14:20 20:59 03:08 RBC 3.01 L (4.30-5.90) m/uL Hgb 8.4 L (13.0-17.5) gm/dL Hct 26.7 L (39.0-53.0) % Sodium (137-145) mmol/L Chloride (98-107) mmol/L BUN (9-20) mg/dL Creatinine (0.66-1.25) mg/dL POC Glucose (mg/dL) 124 H (70-110) mg/dL Calcium (8.4-10.2) mg/dL Phosphorus 5.4 H (2.5-4.5) mg/dL 03/15/23 03/15/23 03/15/23 Range/Units 03:08 06:43 11:46 RBC (4.30-5.90) m/uL Hgb (13.0-17.5) gm/dL Hct (39.0-53.0) % Sodium 133 L (137-145) mmol/L Chloride 97 L (98-107) mmol/L BUN 25 H (9-20) mg/dL Creatinine 2.19 H (0.66-1.25) mg/dL POC Glucose (mg/dL) 118 H 54 L (70-110) mg/dL Calcium 8.0 L (8.4-10.2) mg/dL Phosphorus (2.5-4.5) mg/dL Assessment and Plan Assessment: Impression: Witnessed PEA cardiac arrest with down time of less than 5 minutes Acute anoxic encephalopathy Acute hypoxic respiratory failure secondary to above Acute left lower lobe pneumonia secondary to Legionella pneumonia Severe cardiomyopathy and ejection fraction of 20-25% Cardiogenic shock Acute metabolic anion gap metabolic acidosis Chronic stage IV kidney disease Acute rhabdomyolysis Anemia of chronic disease Insulin-dependent diabetes Dyslipidemia Superficial vein thrombosis of the cephalic veins based on ultrasound Chronic diarrhea negative C. difficile screening Chronic draining once in both feet recommendation: Continue hemodialysis Transfer to a monitor bed, once a bed is available Cardiology is considering cardiac catheterization on this patient since his presentation was a cardiac arrest presentation Continue aggressive pulmonary toileting and chest PT Continue Levaquin for his Legionella pneumonia Patient will eventually require placement hopefully sometime next week to ECF We will continue to follow Time with Patient: Less than 30
[2023-03-15 12:21] LABS: Glucose,Whole Blood 138 mg/dL (70-110)
--- NOTE | 2023-03-15 12:36 | P.PN ---
Subjective Progress Note Date: 03/15/23 Follow-up for acute kidney injury. Was on dialysis, started on 03/01/2023. Last dialysis was yesterday. Objective - Vital Signs Vital signs: Vital Signs Temp 97.7 F 03/15/23 08:00 Pulse 82 03/15/23 08:00 Resp 14 03/15/23 08:00 BP 132/80 03/15/23 08:00 Pulse Ox 96 03/15/23 08:00 FiO2 40 03/11/23 08:05 Intake & Output 03/14/23 03/15/23 03/15/23 18:59 06:59 18:59 Intake Total 500 Output Total 1600 625 Balance -1100 -625 Weight 76.7 kg 73.4 kg Intake: Hemodialysis 500 Output: Urine 625 Stool 600 Hemodialysis 1000 Other: Voiding Method Indwelling Catheter Indwelling Catheter Indwelling Catheter ABP, PAP, CO, CI - Last Documented Arterial Blood Pressure 72/72 - Exam No acute distress S1-S2 heard Decreased breath sounds Lay catheter Edema - Labs CBC & Chem 7: 03/15/23 03:08 03/15/23 03:08 Labs: Abnormal Lab Results - Last 24 Hours (Table) 03/14/23 03/14/23 03/15/23 Range/Units 14:20 20:59 03:08 RBC 3.01 L (4.30-5.90) m/uL Hgb 8.4 L (13.0-17.5) gm/dL Hct 26.7 L (39.0-53.0) % Sodium (137-145) mmol/L Chloride (98-107) mmol/L BUN (9-20) mg/dL Creatinine (0.66-1.25) mg/dL POC Glucose (mg/dL) 124 H (70-110) mg/dL Calcium (8.4-10.2) mg/dL Phosphorus 5.4 H (2.5-4.5) mg/dL 03/15/23 03/15/23 03/15/23 Range/Units 03:08 06:43 11:46 RBC (4.30-5.90) m/uL Hgb (13.0-17.5) gm/dL Hct (39.0-53.0) % Sodium 133 L (137-145) mmol/L Chloride 97 L (98-107) mmol/L BUN 25 H (9-20) mg/dL Creatinine 2.19 H (0.66-1.25) mg/dL POC Glucose (mg/dL) 118 H 54 L (70-110) mg/dL Calcium 8.0 L (8.4-10.2) mg/dL Phosphorus (2.5-4.5) mg/dL 03/15/23 Range/Units 12:19 RBC (4.30-5.90) m/uL Hgb (13.0-17.5) gm/dL Hct (39.0-53.0) % Sodium (137-145) mmol/L Chloride (98-107) mmol/L BUN (9-20) mg/dL Creatinine (0.66-1.25) mg/dL POC Glucose (mg/dL) 138 H (70-110) mg/dL Calcium (8.4-10.2) mg/dL Phosphorus (2.5-4.5) mg/dL Assessment and Plan Assessment: #1 Acute kidney injury dialysis dependent secondary to hemodynamic ATN. -Baseline creatinine around 3.1-3.4 MG per DL. #2 status post cardiopulmonary arrest #3 diabetic kidney disease stage IIIB. #4 shock on levo fed #5 volume overload #6 hypervolemic hyponatremia Plan: #1 restart her back on dialysis with worsening renal function. Currently has a PermCath. #2 next treatment on Sunday. #3 midodrine for hemodynamic support.
--- NOTE | 2023-03-15 13:34 | P.PN ---
Subjective Progress Note Date: 03/14/23 Principal diagnosis: Sepsis and Legionella pneumonia Patient is a 62-year-old male with a past medical history significant for diabetes mellitus hypertension renal insufficiency patient was brought into the ER concerning for weakness and did have some respiratory symptoms patient did have a fever and worsening respiratory status requiring intubation and admission to the ICU the patient urine for digital antigen came back positive evening of 03/01/2023. Patient is status post bronchoscopy and lavage for mucus plugging on 03/10/2023 On today's evaluation that is 03/14/2023, the patient remains to be afebrile, the patient is breathing comfortably on room air and the patient denies any shortness of breath, the patient denies chest pain or any cough , patient denies abdominal pain, no nausea/vomiting and no diarrhea Patient white count is 6.3, creatinine is 3.24, blood and sputum cultures has been negative, urine for Legionella antigen is positive, stool for C. diff is negative, BAL cultures negative so far Objective - Vital Signs Vital signs: Vital Signs Temp 97.6 F 03/14/23 09:51 Pulse 89 03/14/23 09:51 Resp 14 03/14/23 09:51 BP 116/83 03/14/23 09:51 Pulse Ox 95 03/14/23 09:51 FiO2 40 03/11/23 08:05 Intake & Output 03/13/23 03/14/23 03/14/23 18:59 06:59 18:59 Intake Total 300 400 Output Total 750 1975 300 Balance -450 -4625 -300 Weight 76.7 kg 76.7 kg Intake: Intake, IV Titration 100 Amount Furosemide 100 mg In 100 Sodium Chloride 0.9% 90 ml @ 5 MG/HR 5 mls/hr IV .Q20H [facility] Rx#:[id number] Oral 200 Hemodialysis 400 Output: Urine 750 575 Stool 300 Hemodialysis 1400 Other: Voiding Method Indwelling Catheter Indwelling Catheter Indwelling Catheter ABP, PAP, CO, CI - Last Documented Arterial Blood Pressure 72/72 - Exam GENERAL DESCRIPTION: Middle-aged male lying in bed in no distress RESPIRATORY SYSTEM: Unlabored breathing , decreased breath sound at the base HEART: S1 S2 regular rate and rhythm , ABDOMEN: Soft , no tenderness EXTREMITIES: No edema feet - Labs CBC & Chem 7: 03/15/23 03:08 03/15/23 03:08 Labs: Abnormal Lab Results - Last 24 Hours (Table) 03/13/23 03/13/23 03/14/23 Range/Units 20:03 20:44 03:54 RBC 2.85 L (4.30-5.90) m/uL Hgb 7.9 L (13.0-17.5) gm/dL Hct 24.8 L (39.0-53.0) % Sodium (137-145) mmol/L BUN (9-20) mg/dL Creatinine (0.66-1.25) mg/dL POC Glucose (mg/dL) 69 L 150 H (70-110) mg/dL Calcium (8.4-10.2) mg/dL 03/14/23 03/14/23 Range/Units 03:54 06:47 RBC (4.30-5.90) m/uL Hgb (13.0-17.5) gm/dL Hct (39.0-53.0) % Sodium 133 L (137-145) mmol/L BUN 41 H (9-20) mg/dL Creatinine 3.24 H (0.66-1.25) mg/dL POC Glucose (mg/dL) 131 H (70-110) mg/dL Calcium 7.8 L (8.4-10.2) mg/dL Microbiology - Last 24 Hours (Table) 03/10/23 10:12 Gram Stain - Final Bronchial Washings - Left Bronchial Washings Culture - Final Assessment and Plan (1) Legionella pneumonia Current Visit: Yes Status: Acute Code(s): A48.1 - LEGIONNAIRES' DISEASE SNOMED Code(s): 892460103 (2) Sepsis Current Visit: Yes Status: Acute Code(s): A41.9 - SEPSIS, UNSPECIFIED ORGANISM SNOMED Code(s): 92460370 Plan: 1patient presented to hospital with sepsis in this patient with a fever tachycardia hypotension source is likely left lower lobe pneumonia in this patient with weakness lethargy and decreased level of responsiveness and the question of community-acquired versus aspiration pneumonia 2- leukocytosis possible oropharyngeal candidiasis, patient white count has normalized with eraxis we will continue the patient on Eraxis , may transition to nystatin swish and swallow and his oral intake improves 3-urine for Legionella antigen is positive, sputum cultures are currently negative for any resistant pathogen , patient is slowly clinically improving and will continue with Levaquin to finish a 3 week course of therapy Dictation was produced using [employer] dictation software. please excuse any gram matical, word or spelling errors. Time with Patient: Less than 30
--- NOTE | 2023-03-15 13:36 | P.PN ---
Subjective Progress Note Date: 03/15/23 Principal diagnosis: Sepsis and Legionella pneumonia Patient is a 62-year-old male with a past medical history significant for diabetes mellitus hypertension renal insufficiency patient was brought into the ER concerning for weakness and did have some respiratory symptoms patient did have a fever and worsening respiratory status requiring intubation and admission to the ICU the patient urine for digital antigen came back positive evening of 03/01/2023. Patient is status post bronchoscopy and lavage for mucus plugging on 03/10/2023 On today's evaluation that is 03/15/2023, the patient continues to be afebrile, the patient is breathing comfortably on room air and the patient denies chest pain shortness of breath or cough , patient denies nausea/vomiting , no abdominal pain and no diarrhea Patient white count is 4.5, creatinine is 2.19, blood and sputum cultures has been negative, urine for Legionella antigen is positive, stool for C. diff is negative, BAL cultures negative so far Objective - Vital Signs Vital signs: Vital Signs Temp 97.7 F 03/15/23 08:00 Pulse 82 03/15/23 08:00 Resp 14 03/15/23 08:00 BP 132/80 03/15/23 08:00 Pulse Ox 96 03/15/23 08:00 FiO2 40 03/11/23 08:05 Intake & Output 03/14/23 03/15/23 03/15/23 18:59 06:59 18:59 Intake Total 500 Output Total 1600 625 Balance -1100 -625 Weight 76.7 kg 73.4 kg Intake: Hemodialysis 500 Output: Urine 625 Stool 600 Hemodialysis 1000 Other: Voiding Method Indwelling Catheter Indwelling Catheter Indwelling Catheter ABP, PAP, CO, CI - Last Documented Arterial Blood Pressure 72/72 - Exam GENERAL DESCRIPTION: Middle-aged male lying in bed in no distress RESPIRATORY SYSTEM: Unlabored breathing , decreased breath sound at the base HEART: S1 S2 regular rate and rhythm , ABDOMEN: Soft , no tenderness EXTREMITIES: No edema feet - Labs CBC & Chem 7: 03/15/23 03:08 03/15/23 03:08 Labs: Abnormal Lab Results - Last 24 Hours (Table) 03/14/23 03/14/23 03/15/23 Range/Units 14:20 20:59 03:08 RBC 3.01 L (4.30-5.90) m/uL Hgb 8.4 L (13.0-17.5) gm/dL Hct 26.7 L (39.0-53.0) % Sodium (137-145) mmol/L Chloride (98-107) mmol/L BUN (9-20) mg/dL Creatinine (0.66-1.25) mg/dL POC Glucose (mg/dL) 124 H (70-110) mg/dL Calcium (8.4-10.2) mg/dL Phosphorus 5.4 H (2.5-4.5) mg/dL 03/15/23 03/15/23 03/15/23 Range/Units 03:08 06:43 11:46 RBC (4.30-5.90) m/uL Hgb (13.0-17.5) gm/dL Hct (39.0-53.0) % Sodium 133 L (137-145) mmol/L Chloride 97 L (98-107) mmol/L BUN 25 H (9-20) mg/dL Creatinine 2.19 H (0.66-1.25) mg/dL POC Glucose (mg/dL) 118 H 54 L (70-110) mg/dL Calcium 8.0 L (8.4-10.2) mg/dL Phosphorus (2.5-4.5) mg/dL 03/15/23 Range/Units 12:19 RBC (4.30-5.90) m/uL Hgb (13.0-17.5) gm/dL Hct (39.0-53.0) % Sodium (137-145) mmol/L Chloride (98-107) mmol/L BUN (9-20) mg/dL Creatinine (0.66-1.25) mg/dL POC Glucose (mg/dL) 138 H (70-110) mg/dL Calcium (8.4-10.2) mg/dL Phosphorus (2.5-4.5) mg/dL Assessment and Plan (1) Legionella pneumonia Current Visit: Yes Status: Acute Code(s): A48.1 - LEGIONNAIRES' DISEASE SNOMED Code(s): 275114742 (2) Sepsis Current Visit: Yes Status: Acute Code(s): A41.9 - SEPSIS, UNSPECIFIED ORGANISM SNOMED Code(s): 27346580 Plan: 1patient presented to hospital with sepsis in this patient with a fever tachycardia hypotension source is likely left lower lobe pneumonia in this patient with weakness lethargy and decreased level of responsiveness , patient has been diagnosed with Legionella pneumonia 2- leukocytosis possible oropharyngeal candidiasis, patient white count has normalized with eraxis we will continue the patient on Eraxis , plan is to transition to nystatin swish and swallow and his oral intake improves 3-urine for Legionella antigen is positive, sputum cultures are currently negative for any resistant pathogen , patient has short-term and abdomen to continue with the Levaquin that can be transitioned to by mouth Dictation was produced using [employer] dictation software. please excuse any grammatical, word or spelling errors. Time with Patient: Less than 30
--- NOTE | 2023-03-15 14:09 | P.PN ---
Progress Note - Text Progress Note Date: 03/15/23 Interval History: Patient was seen today at the bedside and was watching a football game after e ating his lunch. He was with his parents today. He was agreeable to contract writer today alone in his room. He appeared to be more awake today and more interested in conversation. He continues to have fairly poor understanding of his condition and his need for dialysis. He continues to appear to be fairly nonchalant. She was less bizarre today less evasive. He rambled at times. He is denying any depression today denying any anxiety. At this time patient denies any suicidal or homical ideations, intent or plan. Patient denies any auditory, visual hallucinations and denies any paranoia or delusions. Patient denies any side effects from the medications and has been compliant with meds. he was not able to go through the risks and benefits of treatment and dialysis. claims that he has kidney doctors [facility]. He was alert and oriented to person place however not date. Mental Status Exam: General Appearance: Patient appears to be weak, stated age is alert, balding, improving eye contact. Patient appears to have fair hygiene and grooming wearing hospital gown Behavior: Patient is calmly lying in bed without any agitated behavior. Evasive and vague, improving mildly Speech: Patient's speech is fluent and nonpressured. [place], monotone, improving mildly Mood/Affect: Patient reports their mood is improving, affect is congruent and flat affect, improving Suicidality/Homicidality: Patient denies having any suicidal or homicidal ideation intent or plan. Perceptions: Patient denies any visual hallucinations and denies any auditory hallucinations Though content/process: [place] and poverty of content. Very poor insight into his condition Memory and concentration: AOX to person and place however does not know today's date. He only knows the year as 2022. Judgment and insight: poor IMPRESSIONS: Delirium (hypoactive) likely etiology toxic-metabolic Depressive disorder Unspecified CKD PLAN: -At this time patient DOES NOT meet criteria for inpatient psychiatric admission however due to patients current depression and mental health state and adjusting to news about his decling medical condition and needing to be on hemodialysis, will need to continue to follow along patients case and encourage relying on support system from family. -Patient DOES NOT have decision making capacity at this time and is unable to reason through and communicate/appreciate the risks, benefits and alternatives to treatment. patient would likely benefit from a gaurdian to help him with medical decision making. -Would recommend the following medication changes/additions: Prozac 20 mg daily for mood/anxiety. increase Melatonin 5 mg daily at bedtime for sleep. added prolixin 2.5 mg daily for delirium -Communicated plan to patient's nurse -Will continue to follow along as needed -Please contact with any questions.
[2023-03-15] MEDS: NYSTATIN 100,000 UNIT/ML SUSP 500,000 UNIT/5 ML CUP PO SCH ×4 (14:45→20:44)
--- NOTE | 2023-03-15 15:01 | P.PN ---
Subjective Progress Note Date: 03/15/23 (delayed charting seen at 0955) Patient is a 62-year-old male with chronic kidney disease stage IV/5, hypertension, gout, and diabetes mellitus Type 2 who presented to the ED after being found down by his father. In the ER he underwent an externsive evaluation and was found to have ROSANGELA on CKD with hyperkalemia and significant metabolic acidosis, pneumonia with sepsis, rhabdo, and encephalopathy. He was admitted and was started on Rocephin and Zithromax as well as IV fluids. Nephrology was consulted. Shortly after admission the patient suffered a PEA cardiac arrest with down time was less than 5 minutes. He required vasopressors immediately afterward. He had an emergent central line and hemodialysis catheter placed. He underwent emergent hemodialysis due to his acidosis. He was followed by critical care and nephrology. Infectious disease was consulted Rocephin was discontinued and he was started on Zosyn. An echocardiogram which showed ejection fraction 20-25% with moderate TR and MR and therefore cardiology was consulted. Renal ultrasound showed gallbladder wall thickening but no signs of hydronephrosis or nephrolithiasis. His legionella urine antigen Positive and he was subsequently transitioned to Levaquin. Patient was not doing well with sedation holidays and neurology was subsequently consulted. He underwent a head CT which showed chronic micro vascular ischemic changes and an EEG which showed moderate to severe background slowing. Left upper extremity venous Doppler showed no evidence of DVT but did show cephalic vein superficial thrombosis. He was successfully extubated on 03/08. Patient developed mucous plugging with white out on the left. He subsequently underwent bronchoscopy with Bronchoalveolar lavage on 03/10. This improved his respiratory status but he did have some confusion after the sedation. Patient had a right tunneled hemo dialysis catheter inserted on 03/13/23. Patient seen and examined at bedside. He denies any complaints today. He denies any chest pain, shortness breath, nausea, vomiting. The following questioning occurred: -2005 -Month: February -Holiday In February: -Holiday in march: - where are you: i dont know - hwat kind of room is this- ICU -[facility] -[facility] Hospital: [facility] - State: [place], reoreinted him to [facility] - City: [place] Patient then asks why people are asking me all theses stupid questions. Per nurisng no events over night. Vital signs reviewed General: nontoxic, no distress, appears at stated age Cardiovascular: S1S2 reg, no murmur, Lungs:Decreased bs bilateral, no rhonchi, no rales , no accessory muscle use Abdominal: soft, nontender to palpation, no guarding, no appreciable organomegaly Ext: no gross muscle atrophy, diffuse anasarca, no contractures Neuro: CN II-XI grossly intact, moving all 4 extremities independently. Psych: Awake, alert, blunted affect Assessment/Plan: Legionella pneumonia with septic shock now resolved Acute hypoxic respiratory failure, improved Oral pharyngeal candidiasis Left Mucus Plug s/p bronch on 03/10. -Pulmonary note reviewed: Transfer to monitored bed -Infectious disease note reviewed: Levaquin can be transitioned to mouth - Levaquin 750 mg Q48H D#13/14 , Zosyn 3.375 now discontinued on 03/01-03/05 - Eraxis 100 mg IV piggyback daily D #9 completed discontinued and start patient on nystatin swish and swallow for an additional 5 days Hypoactive delirium likely toxic metabolic encephalopathy Depressive disorder unspecified -Case discussed with psychiatry. Patient currently does not have decision- making capacity at this time and is unable to reason. Communicate tasks appro priately. Would benefit from a guardian. Continue with Prozac. - B12, TSH, Ammonia wnl. Systolic cardiomyopathy with ejection fraction 20-25% Elevated troponin due to demand ischemia, flat, not consistent with acute coronary syndrome -Cardiology note reviewed: Continue beta rhys, maximize medical treatment, consider DC Midodrine (currently has not received any and is prn for HD) -Metoprolol 25 mg 3 times daily hold for SBP <100 or HR <60 - unable to have lisinopril, Jardiance, or aldactone due to renal function Diabetes mellitus type 2 with episode of hypoglycemia -A1c 8.2 -Continue with NovoLog sliding scale, d/c Levemir 10 units daily due to multiple episodes of hypoglycemia Acute kidney injury secondary to ATN with cardiac arrest on chronic kidney disease stage IIIB, biopsy-proven diabetic kidney disease a severe interstitial fibrosis Anemia related to chronic kidney disease -Nephrology note reviewed: Restart back on dialysis with worsening renal functio n, next treatment 03/16 - avoid nephrotoxic agents - maintain map >65 Supoerficial thrombosis of left cephalic vein Rhabdomyolysis, resolved, statin on hold Thrombocytopenia: HIT panel negative. Heparin restarted. hyperglycemia (resolved) PEA arrest Imaging: None new Data Review: Labs today include CBC and basic metabolic profile which are remarkable for hemoglobin 8.4, sodium 133, BUN 25, creatinine 2.19 DVT prophylaxis: Heparin SC Anticipated discharge date: Pending Clinical Course Anticipated discharge place: Pending Clinical Course This dictation was prepared using [employer] voice recognition software. Though every attempt is made to correct errors during dictation some may still exist. Objective - Vital Signs Vital signs: Vital Signs Temp 97.7 F 03/15/23 08:00 Pulse 82 03/15/23 08:00 Resp 14 03/15/23 08:00 BP 132/80 03/15/23 08:00 Pulse Ox 96 03/15/23 08:00 FiO2 40 03/11/23 08:05 Intake & Output 03/14/23 03/15/23 03/15/23 18:59 06:59 18:59 Intake Total 500 Output Total 1600 625 Balance -1100 -625 Weight 76.7 kg 73.4 kg Intake: Hemodialysis 500 Output: Urine 625 Stool 600 Hemodialysis 1000 Other: Voiding Method Indwelling Catheter Indwelling Catheter Indwelling Catheter ABP, PAP, CO, CI - Last Documented Arterial Blood Pressure 72/72 - Labs CBC & Chem 7: 03/15/23 03:08 03/15/23 03:08 Labs: Abnormal Lab Results - Last 24 Hours (Table) 03/14/23 03/15/23 03/15/23 Range/Units 20:59 03:08 03:08 RBC 3.01 L (4.30-5.90) m/uL Hgb 8.4 L (13.0-17.5) gm/dL Hct 26.7 L (39.0-53.0) % Sodium 133 L (137-145) mmol/L Chloride 97 L (98-107) mmol/L BUN 25 H (9-20) mg/dL Creatinine 2.19 H (0.66-1.25) mg/dL POC Glucose (mg/dL) 124 H (70-110) mg/dL Calcium 8.0 L (8.4-10.2) mg/dL 03/15/23 03/15/23 03/15/23 Range/Units 06:43 11:46 12:19 RBC (4.30-5.90) m/uL Hgb (13.0-17.5) gm/dL Hct (39.0-53.0) % Sodium (137-145) mmol/L Chloride (98-107) mmol/L BUN (9-20) mg/dL Creatinine (0.66-1.25) mg/dL POC Glucose (mg/dL) 118 H 54 L 138 H (70-110) mg/dL Calcium (8.4-10.2) mg/dL
[2023-03-15 16:35] LABS: Glucose,Whole Blood 97 mg/dL (70-110)
[2023-03-15] MEDS: LEVOFLOXACIN 750 MG TAB PO SCH (17:25)
[2023-03-15] MEDS: MELATONIN 5 MG TABLET PO SCH (20:36)
[2023-03-15 20:43] LABS: Glucose,Whole Blood 115 mg/dL (70-110)
[2023-03-16 06:27] LABS: HCT 26.1 % (39.0-53.0); HGB 8.1 gm/dL (13.0-17.5); Hypochromasia Slight; MCH 27.5 pg (25.0-35.0); MCHC 31.1 g/dL (31.0-37.0); MCV 88.3 fL (80.0-100.0); Mean Platelet Volume 7.8; Platelet Count 231 k/uL (150-450); RBC 2.96 m/uL (4.30-5.90); RDW 15.4 % (11.5-15.5); WBC 3.8 k/uL (3.8-10.6)
[2023-03-16] MEDS: INSULIN ASPART (NovoLOG) 100 UNIT/ML VIAL SQ SCH ×4 (06:34→20:23)
[2023-03-16 06:35] LABS: Glucose,Whole Blood 139 mg/dL (70-110)
[2023-03-16 06:38] LABS: African American GFR (CKD) 19 (>60 ml/min/1.73 sqM); Anion Gap 11 mmol/L; Blood Urea Nitrogen 36 mg/dL (9-20); Calcium 8.2 mg/dL (8.4-10.2); Carbon Dioxide 26 mmol/L (22-30); Chloride 98 mmol/L (98-107); Glucose 122 mg/dL (74-99); Non-African American GFR(CKD) 16 (>60 ml/min/1.73 sqM); Potassium 4.3 mmol/L (3.5-5.1); Sodium 135 mmol/L (137-145)
[2023-03-16] MEDS: allopurinoL 100 MG TAB PO SCH (08:20)
[2023-03-16] MEDS: SODIUM BICARBONATE TAB 650 MG TAB PO SCH ×2 (08:20→20:37)
[2023-03-16] MEDS: FLUoxetine HCL 20 MG CAP PO SCH (08:20)
[2023-03-16] MEDS: FOLIC ACID 1 MG TAB PO SCH (08:20)
[2023-03-16] MEDS: HEPARIN SODIUM,PORCINE 5,000 UNIT/ML 1 ML VIAL SQ SCH ×2 (08:20→20:38)
[2023-03-16] MEDS: METOPROLOL TARTRATE 25 MG TAB PO SCH ×3 (08:20→20:37)
--- NOTE | 2023-03-16 09:43 | P.PN ---
Subjective Progress Note Date: 03/16/23 Principal diagnosis: Cardiomyopathy/cardiac arrest The patient is a 62-year-old gentleman who was admitted to the hospital after a fall and subsequently he developed right wrist with PEA. Further investigation including an echo was performed and showed severe cardiomyopathy. Troponin was mildly elevated. He was in renal failure. He was anemic. In 03/12/2023 The patient was seen and evaluated. Currently he is stable. He is on Lasix drip by the nephrology service. He is on metoprolol only because his pressure has been on the low side. He still anemic. He still renal failure. The decision to be made regarding permanent hemodialysis catheter. From the Cardec standpoint of view, I would continue the current medical regimen to renal the patient need permanent dialysis or not. Definitely heart catheterization need to be done in the next few days or as an outpatient to rule out severe underlying coronary artery disease for the cardiomyopathy. Meanwhile will c ontinue the current medical regimen. On examination he does have regular rhythm with diminished breathing sounds bilaterally and bilateral lower extremity is edema noted. 03/13/2023 [employer] the patient was seen and evaluated this morning. The plan is to pursue with replacing the dialysis catheter. His creatinine has not been improving in spite of patient's making urine. Otherwise he remains stable hemodynamically. He remains in normal sinus mechanism. He does need to undergo coronary angiogram down the line to find out the etiology for cardiomyopathy. Meanwhile will continue the current medical regimen. He continues to be on Lasix IV by the nephrology service. The examination is remarkable for mild change in mental status with regular rate and rhythm and diminished breathing sounds bilaterally March [id number] The patient was seen and evaluated this morning. The creatinine has been improving. He remains in sinus mechanism. No chest pain or chest discomfort. The examination is remarkable for diminished breathing sounds bilaterally and mild chronic skin changes. His mentation has improved 03/15/2023 The patient was seen and evaluated this morning. His creatinine has been trending down. The hemoglobin remains stable. He is asymptomatic. He is maintaining normal sinus mechanism. For the cardiovascular medications he is on metoprolol at this point. He needs to be on ELROY inhibitor or ARB down the line 160 kidney function improved. He also needs to undergo coronary angiogram with the kidney function improved. Meanwhile will continue the current medical r egimen. 03/16/2023 The patient was seen and evaluated this morning. He remains stable. He is asym ptomatic. Currently he is having dialysis. He is on beta rhys. The examination is remarkable for regular rhythm with clear breathing sounds bilaterally and no edema in the lower extremities. Assessment History of cardiac arrest as described above Cardiomyopathy of unknown etiology Renal failure Anemia Plan Continue the current dose of beta rhys Consider maximize medical treatment for cardiomyopathy Procedure coronary angiogram after dialysis Follow-up with the patient Objective - Vital Signs Vital signs: Vital Signs Temp 97.7 F 03/16/23 08:32 Pulse 98 03/16/23 08:32 Resp 16 03/16/23 08:32 BP 125/75 03/16/23 08:32 Pulse Ox 95 03/16/23 08:32 FiO2 40 03/11/23 08:05 Intake & Output 03/15/23 03/16/23 03/16/23 18:59 06:59 18:59 Intake Total 200 250 Output Total 500 425 Balance -300 -425 250 Weight 72.7 kg Intake: IV 10 Invasive Line 1 5 Invasive Line 10 5 Oral 200 240 Output: Urine 500 425 Other: Voiding Method Indwelling Catheter Indwelling Catheter Indwelling Catheter ABP, PAP, CO, CI - Last Documented Arterial Blood Pressure 72/72 - Labs CBC & Chem 7: 03/16/23 06:02 03/16/23 06:02 Labs: Abnormal Lab Results - Last 24 Hours (Table) 03/15/23 03/15/23 03/15/23 Range/Units 11:46 12:19 20:42 RBC (4.30-5.90) m/uL Hgb (13.0-17.5) gm/dL Hct (39.0-53.0) % Sodium (137-145) mmol/L BUN (9-20) mg/dL Creatinine (0.66-1.25) mg/dL Glucose (74-99) mg/dL POC Glucose (mg/dL) 54 L 138 H 115 H (70-110) mg/dL Calcium (8.4-10.2) mg/dL 03/16/23 03/16/23 03/16/23 Range/Units 06:02 06:02 06:33 RBC 2.96 L (4.30-5.90) m/uL Hgb 8.1 L (13.0-17.5) gm/dL Hct 26.1 L (39.0-53.0) % Sodium 135 L (137-145) mmol/L BUN 36 H (9-20) mg/dL Creatinine 3.72 H (0.66-1.25) mg/dL Glucose 122 H (74-99) mg/dL POC Glucose (mg/dL) 139 H (70-110) mg/dL Calcium 8.2 L (8.4-10.2) mg/dL
[2023-03-16 11:38] LABS: Glucose,Whole Blood 121 mg/dL (70-110)
[2023-03-16] MEDS: NYSTATIN 100,000 UNIT/ML SUSP 500,000 UNIT/5 ML CUP PO SCH ×4 (12:12→20:43)
--- NOTE | 2023-03-16 12:12 | P.PN ---
Subjective Progress Note Date: 03/16/23 Follow-up for acute kidney injury. Was on dialysis, started on 03/01/2023. During dialysis, tolerating well. Objective - Vital Signs Vital signs: Vital Signs Temp 97.4 F L 03/16/23 11:15 Pulse 87 03/16/23 11:15 Resp 16 03/16/23 11:15 BP 127/88 03/16/23 11:15 Pulse Ox 96 03/16/23 11:15 FiO2 40 03/11/23 08:05 Intake & Output 03/15/23 03/16/23 03/16/23 18:59 06:59 18:59 Intake Total 200 250 Output Total 500 425 Balance -300 -425 250 Weight 72.7 kg Intake: IV 10 Invasive Line 1 5 Invasive Line 10 5 Oral 200 240 Output: Urine 500 425 Other: Voiding Method Indwelling Catheter Indwelling Catheter Indwelling Catheter ABP, PAP, CO, CI - Last Documented Arterial Blood Pressure 72/72 - Exam No acute distress S1-S2 heard Decreased breath sounds Lay catheter Edema - Labs CBC & Chem 7: 03/16/23 06:02 03/16/23 06:02 Labs: Abnormal Lab Results - Last 24 Hours (Table) 03/15/23 03/15/23 03/16/23 Range/Units 12:19 20:42 06:02 RBC 2.96 L (4.30-5.90) m/uL Hgb 8.1 L (13.0-17.5) gm/dL Hct 26.1 L (39.0-53.0) % Sodium (137-145) mmol/L BUN (9-20) mg/dL Creatinine (0.66-1.25) mg/dL Glucose (74-99) mg/dL POC Glucose (mg/dL) 138 H 115 H (70-110) mg/dL Calcium (8.4-10.2) mg/dL 03/16/23 03/16/23 03/16/23 Range/Units 06:02 06:33 11:36 RBC (4.30-5.90) m/uL Hgb (13.0-17.5) gm/dL Hct (39.0-53.0) % Sodium 135 L (137-145) mmol/L BUN 36 H (9-20) mg/dL Creatinine 3.72 H (0.66-1.25) mg/dL Glucose 122 H (74-99) mg/dL POC Glucose (mg/dL) 139 H 121 H (70-110) mg/dL Calcium 8.2 L (8.4-10.2) mg/dL Assessment and Plan Assessment: #1 Acute kidney injury dialysis dependent secondary to hemodynamic ATN. -Baseline creatinine around 3.1-3.4 MG per DL. #2 status post cardiopulmonary arrest #3 diabetic kidney disease stage IIIB. #4 shock on levo fed #5 volume overload #6 hypervolemic hyponatremia Plan: #1 hemodialysis MWF schedule. Currently has a PermCath. #2 next treatment on Sunday. #3 midodrine for hemodynamic support.
[2023-03-16] MEDS: TORSEMIDE 20 MG TAB PO SCH (12:13)
[2023-03-16] MEDS: PANTOPRAZOLE 40 MG/10 ML VIAL IVP SCH (12:13)
--- NOTE | 2023-03-16 15:11 | P.PN ---
Subjective Progress Note Date: 03/16/23 I am seeing this patient in new consultation today 03/01/2023 in the intensive care unit, after the patient had a witnessed PEA cardiac arrest while on the Observation unit. Patient is a 62-year-old white male with past medical history significant for diabetes mellitus, diabetic foot ulcers, hypertension, hyperlipidemia, iron deficiency anemia, chronic kidney disease. Patient is currently sedated and intubated on the mechanical ventilator. He was admitted yesterday morning, after being found on the floor by his father. Apparently, the patient denied hitting his head or losing consciousness. Patient does have diabetes mellitus, and his blood sugars had been running high at home. Chest x- ray on admission showed a left lower lobe infiltrate consistent with community acquired pneumonia. Patient did have a fever with a T-max of 100.7F. Apparently, after being admitted to the observation unt, the patient was noted to have low blood pressure. The patient was given 1 L normal saline bolus and 5 amps sodium bicarb. Soon after, the patient had a cardiac arrest. Presenting rhythm was PEA. Patient had a limited downtime of less than 5 minutes. He received 1 mg of epinephrine. Rapid sequence intubation was performed. The patient was then transferred to the intensive care unit. Dr. Lacy did come in and place a left subclavian central line catheter and a right wrist arterial line. Patient was also noted to be in acute renal failure. He did have a right femoral hemodialysis catheter placed earlier, and is currently undergoing emergent hemodialysis. Patient is currently in the intensive care unit, intubated to the mechanical ventilator. He is sedated on propofol which is currently infusing at 40 mcg/kg/m. He is synchronous with the mechanical ventilator. Postintubation ABG shows a pO2 greater than 400, pCO2 27, pH of 7.43, this was done on ventilator settings of assist control, respiratory rate 22, tidal volume 500, FiO2 100%, and PEEP of 5. Patient's FiO2 was dropped to 50%. Peak pressures 27. Post intubation chest x-ray shows the endotracheal tube 4 cm above the anika. Oral gastric tube could be advanced 5 cm. There is a persistent left lower lobe infiltrate. Most recent CBC from yesterday evening showed a WBC count of 7.8, hemoglobin 7.1, hematocrit 22.7, platelets 120. No obvious acute blood loss was noted. Most recent available BMP shows sodium 140, potassium 4.6, chloride 107, serum bicarb 15, BUN 107, creatinine 7.82, glucose 282. Acetone negative. LFTs not elevated. CPK 1240. Currently, 3 A sodium bicarb in D5W is infusing at 100 ML's per hour. There is also normal saline infusing at 130 ML's per hour. Patient is currently anuric. Troponins elevated at 0.457, 0.388, and 0.422 respectively. ECG shows normal sinus rhythm without any obvious acute ischemic changes. Urinalysis not concerning for UTI. Lactic acid level was elevated at 4 is down 1.6. Negative for influenza, RSV, COVID- 19. Patient was started on empiric antibiotics in the form of ceftriaxone and azithromycin. Currently afebrile. Patient's condition is currently critical, moderate in the intensive care unit. On 03/10/2023, the patient is resting comfortably. Breathing is nonlabored and the patient is on 4 L of oxygen by nasal cannula with a pulse ox of 97%. He has a IV daily for enteral feeding for nutritional support. His chest x-ray from today is showing significant volume loss in the left lung. Suspect mucus plugging as the patient has of optimal ability to do adequate pulmonary toileting. Based on that, the plan was to do a bedside bronchoscopy for therapeutic airway suctioning. . It is possible also that there may be some limited pleural effusion and left lung. The patient was echoes at 12.3, hemoglobin is 8.6, platelet count is 175, BUN is at 75 with a creatinine of 3.06. Sodium is at 133. Last hemodialysis session was yesterday. Note that the patient had a Legionella pneumonia in the left lower lobe and the patient continued to have a persistent consolidation of the left lung base. He remains on Levaquin. She remains on Eraxis. Infectious diseases on the case. He is on no pressors at this point in time. On Levemir insulin, 15 units at bedtime and 10 units in the morning. Is also on NovoLog siding scale coverage. He remains on metoprolol 25 mg 3 times a day.. Last hemodialysis session was yesterday and the patient is producing adequate amount of urine output for the time being. . On 03/11/2023, the patient is post bronchoscopy. The repeat chest x-ray was done today and the patient has ongoing consolidation of the left lung base related to residual pneumonia. Is improvement in volume status examination of the left lung. He remains on oxygen at 4 L/m nasal cannula. He continues to receive enteral feeding for nutritional support. He is still weak and having episodes of confusion. Is communicating for now. He has profound motor weakness in all 4 extremities. He remains on Levaquin. No nausea. No abd ominal pain or distention. He is producing urine output. No plans for dialysis today. He has of 87 with a creatinine of 3.97 and sodium is 135. WBC count 10.7 with a hemoglobin of 7.9. Oxygenation is further improved. The patient's current on room air oxygen with a pulse ox of 93%. He is on Levemir insulin 10 units in addition to sliding scale coverage. Heparin subcu for prophylaxis. Patient was reevaluated today on 03/12/2023, patient remains in the ICU, continues to have a significant left lower lobe consolidation. Remains on Lasix drip at 10 mg per hour, patient has excellent urine output, -3 L in the last 24 hours. Patient remains on Eraxis and on Levaquin. Ultrasound of the chest was ordered today to consider left-sided thoracentesis if there is enough fluid to drain. His BUN is 97 creatinine 4.84, his last dialysis was on 03/09 may be considered for hemodialysis catheter placement. Patient is wondering when he could go home, and I explained to them that he is not quite ready continues to have many issues to address. And he needs to BE cleared by all the consultants. Continues to have chronic wounds in both feet. Continues to be followed by many consultants. WBC count today is 7.8 hemoglobin 7.6 electrolytes are normal BUN is 97 creatinine 4.84. Ultrasound of the chest failed to show any pleural effusion in the left pleural space, hence the findings are mostly findings of strictly consolidation in the left lower lobe. Patient will reevaluated today on 03/13/23, remains in the ICU, patient remains on Lasix at 5 mg per hour, he has excellent urine output however his renal functioning seems to be getting worse. He was seen by nephrology today, and now the recommendation is to place a permacath, and possibly start dialysis on this patient. Creatinine is up to 5.99. In the meantime the patient could be considered for transfer to a 3 S. bad/monitor bed on selective. Patient is still receiving treatment for his Legionella pneumonia and sepsis. Remains on Levaquin. Chest x-ray showed significant improvement today in his left lower lobe consolidation, and again his ultrasound did not show any fluid to drain WBC count is 8 hemoglobin 7.5 electrolytes are relatively normal except for potassium of 5.4 and he had a BUN of 101 creatinine 5.99 Patient was today on 03/14/23, patient continues to feel down, refusing any treatment including oral medications, however the patient seems to be in no distress. On room air with O2 sat shows 95%, he is hemodynamically stable with blood pressure of 116/83, patient is supposed to undergo hemodialysis today, hopefully he doesn't declined hemodialysis. Patient was seen by psychiatry, and he is refusing to take his medication orally. Labs are basically unremarkable including CBC and basic metabolic profile is creatinine is 3.24 and he is supposed to get dialysis today. Reevaluated today on 03/15 patient is doing well, relatively asymptomatic, patient did undergo dialysis yesterday, being followed by cardiology and still considering cardiac catheterization on this patient after his kidney functioning improves and after hemodialysis. Today's BUN is 25 creatinine 2.19, steadily improving with hemodialysis. Chest x-ray continues to show left lower lobe atelectasis/pneumonia although clinically the patient is much better,, patient did have Legionella pneumonia treated The patient is seen today 03/16/2023 in follow-up on the selective care unit. He is currently resting comfortably in bed. Awake and alert in no acute distress. He is receiving hemodialysis. Currently in a negative balance. Bronchial wash cultures revealed no growth. White count 3.8. Hemoglobin 8.1. Platelets 231. Sodium 135. Potassium 4.3. Bicarb 26. BUN 36. Creatinine 3.72. Glucose 122. He remains on oral diuretics. Heparin for DVT prophylaxis. Antibiotics in the form of Levaquin. Objective - Vital Signs Vital signs: Vital Signs Temp 97.8 F 03/16/23 12:36 Pulse 81 03/16/23 12:36 Resp 19 03/16/23 12:36 BP 129/75 03/16/23 12:36 Pulse Ox 96 03/16/23 11:15 FiO2 40 03/11/23 08:05 Intake & Output 03/15/23 03/16/23 03/16/23 18:59 06:59 18:59 Intake Total 200 1018 Output Total 754 141 3339 Balance -300 425 -782 Weight 72.7 kg 72.7 kg Intake: IV 20 Invasive Line 1 10 Invasive Line 10 10 Oral 200 598 Hemodialysis 400 Output: Urine 500 425 Hemodialysis 1800 Other: Voiding Method Indwelling Catheter Indwelling Catheter Indwelling Catheter ABP, PAP, CO, CI - Last Documented Arterial Blood Pressure 72/72 - Exam GENERAL EXAM: Alert, flat affect, 62-year-old male, on room air, comfortable in no apparent distress. HEAD: Normocephalic. EYES: Normal reaction of pupils, equal size. NOSE: Clear with pink turbinates. THROAT: No erythema or exudates. NECK: No masses, no JVD. CHEST: No chest wall deformity. LUNGS: Equal air entry with crackles in the left lung base. CVS: S1 and S2 normal with no audible murmur, regular rhythm. ABDOMEN: No hepatosplenomegaly, normal bowel sounds, no guarding or rigidity. SPINE: No scoliosis or deformity SKIN: No rashes CENTRAL NERVOUS SYSTEM: No focal deficits, tone is normal in all 4 extremities. EXTREMITIES: Seems to the bilateral lower extremity There is no peripheral edema. No clubbing, no cyanosis. Peripheral pulses are intact. - Labs CBC & Chem 7: 03/16/23 06:02 03/16/23 06:02 Labs: Abnormal Lab Results - Last 24 Hours (Table) 03/15/23 03/16/23 03/16/23 Range/Units 20:42 06:02 06:02 RBC 2.96 L (4.30-5.90) m/uL Hgb 8.1 L (13.0-17.5) gm/dL Hct 26.1 L (39.0-53.0) % Sodium 135 L (137-145) mmol/L BUN 36 H (9-20) mg/dL Creatinine 3.72 H (0.66-1.25) mg/dL Glucose 122 H (74-99) mg/dL POC Glucose (mg/dL) 115 H (70-110) mg/dL Calcium 8.2 L (8.4-10.2) mg/dL 03/16/23 03/16/23 Range/Units 06:33 11:36 RBC (4.30-5.90) m/uL Hgb (13.0-17.5) gm/dL Hct (39.0-53.0) % Sodium (137-145) mmol/L BUN (9-20) mg/dL Creatinine (0.66-1.25) mg/dL Glucose (74-99) mg/dL POC Glucose (mg/dL) 139 H 121 H (70-110) mg/dL Calcium (8.4-10.2) mg/dL Assessment and Plan Assessment: Witnessed PEA cardiac arrest with down time of less than 5 minutes Acute anoxic encephalopathy Acute hypoxic respiratory failure secondary to above Acute left lower lobe pneumonia secondary to Legionella pneumonia Severe cardiomyopathy and ejection fraction of 20-25% Cardiogenic shock Acute metabolic anion gap metabolic acidosis Chronic stage IV kidney disease Acute rhabdomyolysis Anemia of chronic disease Insulin-dependent diabetes Dyslipidemia Superficial vein thrombosis of the cephalic veins based on ultrasound Chronic diarrhea negative C. difficile screening Chronic draining wounds in both feet Plan: The patient was seen and evaluated Labs and medications reviewed Currently receiving hemodialysis Remains on Levaquin Remains on oral diuretics Heparin for DVT prophylaxis Plan is for cardiac catheterization this admission We will continue to follow I have personally seen and examined the patient, performed the documentation and the assessment and plan as written. Number of minutes spent on the visit: 10.
[2023-03-16 16:25] LABS: Glucose,Whole Blood 160 mg/dL (70-110)
--- NOTE | 2023-03-16 18:04 | P.PN ---
Subjective Progress Note Date: 03/16/23 Patient is a 62-year-old male with chronic kidney disease stage IV/5, hypertension, gout, and diabetes mellitus Type 2 who presented to the ED after being found down by his father. In the ER he underwent an externsive evaluation and was found to have ROSANGELA on CKD with hyperkalemia and significant metabolic acidosis, pneumonia with sepsis, rhabdo, and encephalopathy. He was admitted and was started on Rocephin and Zithromax as well as IV fluids. Nephrology was consulted. Shortly after admission the patient suffered a PEA cardiac arrest with down time was less than 5 minutes. He required vasopressors immediately afterward. He had an emergent central line and hemodialysis catheter placed. He underwent emergent hemodialysis due to his acidosis. He was followed by critical care and nephrology. Infectious disease was consulted Rocephin was discontinued and he was started on Zosyn. An echocardiogram which showed ejection fraction 20-25% with moderate TR and MR and therefore cardiology was consulted. Renal ultrasound showed gallbladder wall thickening but no signs of hydronephrosis or nephrolithiasis. His legionella urine antigen Positive and he was subsequently transitioned to Levaquin. Patient was not doing well with sedation holidays and neurology was subsequently consulted. He underwent a head CT which showed chronic micro vascular ischemic changes and an EEG which showed moderate to severe background slowing. Left upper extremity venous Doppler showed no evidence of DVT but did show cephalic vein superficial thrombosis. He was successfully extubated on 03/08. Patient developed mucous plugging with white out on the left. He subsequently underwent bronchoscopy with Bronchoalveolar lavage on 03/10. This improved his respiratory status but he did have some confusion after the sedation. Patient had a right tunneled hemodialysis catheter inserted on 03/13/23. Patient seen and examined at bedside. He denies any chest pain, shortness breath, nausea and vomiting. 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 The following questioning occurred: Year-2017 -Month: I dont't knw - If thhanksgiving was this month, what month is it: -Holiday in march: peggy - where are you: ICU -[facility] -Which Hospital: [facility] - State: [place] - City: [place] Patient then asks why people are asking me all theses stupid questions. Per nurisng no events over night. Vital signs reviewed General: nontoxic, no distress, appears at stated age Cardiovascular: S1S2 reg, no murmur, Lungs:Decreased bs bilateral, no rhonchi, no rales , no accessory muscle use Abdominal: soft, nontender to palpation, no guarding, no appreciable organomegaly Ext: no gross muscle atrophy, no contractures Neuro: CN II-XI grossly intact, moving all 4 extremities independently. Psych: Awake, alert, blunted affect Assessment/Plan: Legionella pneumonia with septic shock now resolved Acute hypoxic respiratory failure, improved Oral pharyngeal candidiasis Left Mucus Plug s/p bronch on 03/10. -Pulmonary reviewed: Remains on Levaquin -Await further Infectious disease recs - Levaquin 750 mg Q48H D# , Zosyn 3.375 now discontinued on 03/01-03/05 - Nystatin swish and swallow day #2/5, status post Eraxis 100 mg IV piggyback daily for 9 days Hypoactive delirium likely toxic metabolic encephalopathy Depressive disorder unspecified -Await furter psych recs: per last note Patient currently does not have decision-making capacity at this time and is unable to reason. Communicate tasks appropriately. Would benefit from a guardian. Continue with Prozac. - B12, TSH, Ammonia wnl. Systolic cardiomyopathy with ejection fraction 20-25% Elevated troponin due to demand ischemia, flat, not consistent with acute coronary syndrome -Cardiology note reviewed: Continue to follow patient, maximize medical therapy -Metoprolol 25 mg 3 times daily hold for SBP <100 or HR <60 - unable to have lisinopril, Jardiance, or aldactone due to renal function Diabetes mellitus type 2 with episode of hypoglycemia -A1c 8.2 -Continue with NovoLog sliding scale, d/c Levemir 10 units daily due to multiple episodes of hypoglycemia Acute kidney injury secondary to ATN with cardiac arrest on chronic kidney disease stage IIIB, biopsy-proven diabetic kidney disease a severe interstitial fibrosis Anemia related to chronic kidney disease -Nephrology note reviewed: Hemodialysis Sunday/Sunday/Sunday - avoid nephrotoxic agents - maintain map >65 Supoerficial thrombosis of left cephalic vein Rhabdomyolysis, resolved, statin on hold Thrombocytopenia: HIT panel negative. Heparin restarted. hyperglycemia (resolved) PEA arrest Imaging: None new Data Review: -Labs reviewed from today include CBC and basic metabolic profile which were remarkable for hemoglobin 8.1, sodium 135, BUN 36, creatinine 3.7 to DVT prophylaxis: Heparin SC Anticipated discharge date: Pending Clinical Course Anticipated discharge place: Pending Clinical Course This dictation was prepared using [employer] voice recognition software. Though every attempt is made to correct errors during dictation some may still exist. Objective - Vital Signs Vital signs: Vital Signs Temp 98.0 F 03/16/23 15:17 Pulse 93 03/16/23 15:17 Resp 16 03/16/23 15:17 BP 147/70 03/16/23 15:17 Pulse Ox 98 03/16/23 15:17 FiO2 40 03/11/23 08:05 Intake & Output 03/15/23 03/16/23 03/16/23 18:59 06:59 18:59 Intake Total 200 1023 Output Total 813 797 7054 Balance -300 -425 -1102 Weight 72.7 kg 72.7 kg Intake: IV 25 Invasive Line 1 15 Invasive Line 10 10 Oral 200 598 Hemodialysis 400 Output: Urine 500 425 325 Uretheral (Lay) 325 Hemodialysis 1800 Other: Voiding Method Indwelling Catheter Indwelling Catheter Indwelling Catheter ABP, PAP, CO, CI - Last Documented Arterial Blood Pressure 72/72 - Labs CBC & Chem 7: 03/16/23 06:02 03/16/23 06:02 Labs: Abnormal Lab Results - Last 24 Hours (Table) 03/15/23 03/16/23 03/16/23 Range/Units 20:42 06:02 06:02 RBC 2.96 L (4.30-5.90) m/uL Hgb 8.1 L (13.0-17.5) gm/dL Hct 26.1 L (39.0-53.0) % Sodium 135 L (137-145) mmol/L BUN 36 H (9-20) mg/dL Creatinine 3.72 H (0.66-1.25) mg/dL Glucose 122 H (74-99) mg/dL POC Glucose (mg/dL) 115 H (70-110) mg/dL Calcium 8.2 L (8.4-10.2) mg/dL 03/16/23 03/16/23 03/16/23 Range/Units 06:33 11:36 16:24 RBC (4.30-5.90) m/uL Hgb (13.0-17.5) gm/dL Hct (39.0-53.0) % Sodium (137-145) mmol/L BUN (9-20) mg/dL Creatinine (0.66-1.25) mg/dL Glucose (74-99) mg/dL POC Glucose (mg/dL) 139 H 121 H 160 H (70-110) mg/dL Calcium (8.4-10.2) mg/dL
[2023-03-16 20:04] LABS: Glucose,Whole Blood 139 mg/dL (70-110)
[2023-03-16] MEDS: MELATONIN 5 MG TABLET PO SCH (20:37)
[2023-03-17 05:56] LABS: Glucose,Whole Blood 120 mg/dL (70-110)
[2023-03-17] MEDS: INSULIN ASPART (NovoLOG) 100 UNIT/ML VIAL SQ SCH ×5 (06:24→20:24)
[2023-03-17] MEDS: NYSTATIN 100,000 UNIT/ML SUSP 500,000 UNIT/5 ML CUP PO SCH ×4 (08:15→20:32)
[2023-03-17] MEDS: allopurinoL 100 MG TAB PO SCH (08:16)
[2023-03-17] MEDS: HEPARIN SODIUM,PORCINE 5,000 UNIT/ML 1 ML VIAL SQ SCH ×2 (08:16→20:32)
[2023-03-17] MEDS: FLUoxetine HCL 20 MG CAP PO SCH (08:16)
[2023-03-17] MEDS: METOPROLOL TARTRATE 25 MG TAB PO SCH (08:16)
[2023-03-17] MEDS: PANTOPRAZOLE 40 MG/10 ML VIAL IVP SCH (08:16)
[2023-03-17] MEDS: FOLIC ACID 1 MG TAB PO SCH (08:16)
[2023-03-17] MEDS: TORSEMIDE 20 MG TAB PO SCH (08:16)
--- NOTE | 2023-03-17 08:17 | P.PN ---
Subjective Progress Note Date: 03/16/23 Principal diagnosis: Sepsis and Legionella pneumonia Patient is a 62-year-old male with a past medical history significant for diabetes mellitus hypertension renal insufficiency patient was brought into the ER concerning for weakness and did have some respiratory symptoms patient did have a fever and worsening respiratory status requiring intubation and admission to the ICU the patient urine for digital antigen came back positive evening of 03/01/2023. Patient is status post bronchoscopy and lavage for mucus plugging on 03/10/2023 On today's evaluation that is 03/16/2023, the patient denies any fever or any chills, the patient is breathing comfortably on room air without the need for supplemental oxygen, patient denies chest pain shortness of breath and no s ignificant cough or sputum production, patient denies Abdominal pain, no nausea/vomiting and denies having any diarrhea Patient white count is 3.8, creatinine is 3.72, blood and sputum cultures has b een negative, urine for Legionella antigen is positive, stool for C. diff is negative, BAL cultures negative so far Objective - Vital Signs Vital signs: Vital Signs Temp 97.8 F 03/16/23 12:36 Pulse 81 03/16/23 12:36 Resp 19 03/16/23 12:36 BP 129/75 03/16/23 12:36 Pulse Ox 96 03/16/23 11:15 FiO2 40 03/11/23 08:05 Intake & Output 03/15/23 03/16/23 03/16/23 18:59 06:59 18:59 Intake Total 200 650 Output Total 981 376 0861 Balance -300 425 -1150 Weight 72.7 kg 72.7 kg Intake: IV 10 Invasive Line 1 5 Invasive Line 10 5 Oral 200 240 Hemodialysis 400 Output: Urine 500 425 Hemodialysis 1800 Other: Voiding Method Indwelling Catheter Indwelling Catheter Indwelling Catheter ABP, PAP, CO, CI - Last Documented Arterial Blood Pressure 72/72 - Exam GENERAL DESCRIPTION: Middle-aged male lying in bed in no distress RESPIRATORY SYSTEM: Unlabored breathing , decreased breath sound at the base HEART: S1 S2 regular rate and rhythm , ABDOMEN: Soft , no tenderness EXTREMITIES: No edema feet - Labs CBC & Chem 7: 03/16/23 06:02 03/16/23 06:02 Labs: Abnormal Lab Results - Last 24 Hours (Table) 03/15/23 03/16/23 03/16/23 Range/Units 20:42 06:02 06:02 RBC 2.96 L (4.30-5.90) m/uL Hgb 8.1 L (13.0-17.5) gm/dL Hct 26.1 L (39.0-53.0) % Sodium 135 L (137-145) mmol/L BUN 36 H (9-20) mg/dL Creatinine 3.72 H (0.66-1.25) mg/dL Glucose 122 H (74-99) mg/dL POC Glucose (mg/dL) 115 H (70-110) mg/dL Calcium 8.2 L (8.4-10.2) mg/dL 03/16/23 03/16/23 Range/Units 06:33 11:36 RBC (4.30-5.90) m/uL Hgb (13.0-17.5) gm/dL Hct (39.0-53.0) % Sodium (137-145) mmol/L BUN (9-20) mg/dL Creatinine (0.66-1.25) mg/dL Glucose (74-99) mg/dL POC Glucose (mg/dL) 139 H 121 H (70-110) mg/dL Calcium (8.4-10.2) mg/dL Assessment and Plan (1) Legionella pneumonia Current Visit: Yes Status: Acute Code(s): A48.1 - LEGIONNAIRES' DISEASE SNOMED Code(s): 031721425 (2) Sepsis Current Visit: Yes Status: Acute Code(s): A41.9 - SEPSIS, UNSPECIFIED ORGANISM SNOMED Code(s): 73508723 Plan: 1patient presented to hospital with sepsis in this patient with a fever tachycardia hypotension source is likely left lower lobe pneumonia in this patient with weakness lethargy and decreased level of responsiveness , patient has been diagnosed with Legionella pneumonia 2- leukocytosis possible oropharyngeal candidiasis, patient white count has normalized with eraxis we will continue the patient on Eraxis , plan is to transition to nystatin swish and swallow and his oral intake improves 3-Pt with legionella Pneumonia , is slowly clinically improving , to continue with levaquin Dictation was produced using [employer] dictation software. please excuse any g rammatical, word or spelling errors. Time with Patient: Less than 30
[2023-03-17] MEDS: SODIUM BICARBONATE TAB 650 MG TAB PO SCH ×2 (08:25→20:32)
--- NOTE | 2023-03-17 10:16 | P.PN ---
Subjective Progress Note Date: 03/17/23 Principal diagnosis: Cardiomyopathy/cardiac arrest The patient is a 62-year-old gentleman who was admitted to the hospital after a fall and subsequently he developed right wrist with PEA. Further investigation including an echo was performed and showed severe cardiomyopathy. Troponin was mildly elevated. He was in renal failure. He was anemic. In 03/12/2023 The patient was seen and evaluated. Currently he is stable. He is on Lasix drip by the nephrology service. He is on metoprolol only because his pressure has been on the low side. He still anemic. He still renal failure. The decision to be made regarding permanent hemodialysis catheter. From the [facility] standpoint of view, I would continue the current medical regimen to renal the patient need permanent dialysis or not. Definitely heart catheterization need to be done in the next few days or as an outpatient to rule out severe underlying coronary artery disease for the cardiomyopathy. Meanwhile will c ontinue the current medical regimen. On examination he does have regular rhythm with diminished breathing sounds bilaterally and bilateral lower extremity is edema noted. 03/13/2023 [place] the patient was seen and evaluated this morning. The plan is to pursue with replacing the dialysis catheter. His creatinine has not been improving in spite of patient's making urine. Otherwise he remains stable hemodynamically. He remains in normal sinus mechanism. He does need to undergo coronary angiogram down the line to find out the etiology for cardiomyopathy. Meanwhile will continue the current medical regimen. He continues to be on Lasix IV by the nephrology service. The examination is remarkable for mild change in mental status with regular rate and rhythm and diminished breathing sounds bilaterally March [id number] The patient was seen and evaluated this morning. The creatinine has been improving. He remains in sinus mechanism. No chest pain or chest discomfort. The examination is remarkable for diminished breathing sounds bilaterally and mild chronic skin changes. His mentation has improved 03/15/2023 The patient was seen and evaluated this morning. His creatinine has been trending down. The hemoglobin remains stable. He is asymptomatic. He is maintaining normal sinus mechanism. For the cardiovascular medications he is on metoprolol at this point. He needs to be on ELROY inhibitor or ARB down the line 160 kidney function improved. He also needs to undergo coronary angiogram with the kidney function improved. Meanwhile will continue the current medical r egimen. 03/16/2023 The patient was seen and evaluated this morning. He remains stable. He is asym ptomatic. Currently he is having dialysis. He is on beta rhys. The examination is remarkable for regular rhythm with clear breathing sounds bilaterally and no edema in the lower extremities. 03/17/2023 The patient was seen this morning. He remains tachycardic and did have an episode of nonsustained ventricular tachycardia yesterday. His pressure remains stable. I'm going to increase the dose of metoprolol at this point and continue the rest of the current medical regimen. He continues to be on dialysis. Examination is unremarkable Assessment History of cardiac arrest as described above Cardiomyopathy of unknown etiology Renal failure Anemia Nonsustained ventricular tachycardia Plan Increase the dose of metoprolol Consider maximize medical treatment for cardiomyopathy Procedure coronary angiogram after dialysis Follow-up with the patient Objective - Vital Signs Vital signs: Vital Signs Temp 97.8 F 03/17/23 08:10 Pulse 101 H 03/17/23 08:10 Resp 16 03/17/23 08:10 BP 133/71 03/17/23 08:10 Pulse Ox 95 03/17/23 08:10 FiO2 40 03/11/23 08:05 Intake & Output 03/16/23 03/17/23 03/17/23 18:59 06:59 18:59 Intake Total 1141 5 Output Total 2125 300 150 Balance -984 -300 -145 Weight 72.7 kg 69.5 kg Intake: IV 25 5 Invasive Line 1 15 5 Invasive Line 10 10 Oral 716 Hemodialysis 400 Output: Urine 325 300 150 Uretheral (Lay) 325 150 Hemodialysis 1800 Other: Voiding Method Indwelling Catheter Indwelling Catheter Indwelling Catheter # Voids 0 ABP, PAP, CO, CI - Last Documented Arterial Blood Pressure 72/72 - Labs CBC & Chem 7: 03/16/23 06:02 03/16/23 06:02 Labs: Abnormal Lab Results - Last 24 Hours (Table) 03/16/23 03/16/23 03/16/23 Range/Units 11:36 16:24 20:03 POC Glucose (mg/dL) 121 H 160 H 139 H (70-110) mg/dL 03/17/23 Range/Units 05:55 POC Glucose (mg/dL) 120 H (70-110) mg/dL
[2023-03-17 11:15] LABS: HCT 26.2 % (39.0-53.0); HGB 8.4 gm/dL (13.0-17.5); Hypochromasia Moderate; MCH 28.1 pg (25.0-35.0); Mean Platelet Volume 8.6; Platelet Count 198 k/uL (150-450); RBC 2.98 m/uL (4.30-5.90); RDW 15.4 % (11.5-15.5); WBC 3.7 k/uL (3.8-10.6)
[2023-03-17 11:48] LABS: Glucose,Whole Blood 146 mg/dL (70-110)
--- NOTE | 2023-03-17 12:10 | P.PN ---
Subjective Progress Note Date: 03/17/23 I am seeing this patient in new consultation today 03/01/2023 in the intensive care unit, after the patient had a witnessed PEA cardiac arrest while on the Observation unit. Patient is a 62-year-old white male with past medical history significant for diabetes mellitus, diabetic foot ulcers, hypertension, hyperlipidemia, iron deficiency anemia, chronic kidney disease. Patient is currently sedated and intubated on the mechanical ventilator. He was admitted yesterday morning, after being found on the floor by his father. Apparently, the patient denied hitting his head or losing consciousness. Patient does have diabetes mellitus, and his blood sugars had been running high at home. Chest x- ray on admission showed a left lower lobe infiltrate consistent with community acquired pneumonia. Patient did have a fever with a T-max of 100.7F. Apparently, after being admitted to the observation unt, the patient was noted to have low blood pressure. The patient was given 1 L normal saline bolus and 5 amps sodium bicarb. Soon after, the patient had a cardiac arrest. Presenting rhythm was PEA. Patient had a limited downtime of less than 5 minutes. He received 1 mg of epinephrine. Rapid sequence intubation was performed. The patient was then transferred to the intensive care unit. Dr. Lacy did come in and place a left subclavian central line catheter and a right wrist arterial line. Patient was also noted to be in acute renal failure. He did have a right femoral hemodialysis catheter placed earlier, and is currently undergoing emergent hemodialysis. Patient is currently in the intensive care unit, intubated to the mechanical ventilator. He is sedated on propofol which is currently infusing at 40 mcg/kg/m. He is synchronous with the mechanical ventilator. Postintubation ABG shows a pO2 greater than 400, pCO2 27, pH of 7.43, this was done on ventilator settings of assist control, respiratory rate 22, tidal volume 500, FiO2 100%, and PEEP of 5. Patient's FiO2 was dropped to 50%. Peak pressures 27. Post intubation chest x-ray shows the endotracheal tube 4 cm above the anika. Oral gastric tube could be advanced 5 cm. There is a persistent left lower lobe infiltrate. Most recent CBC from yesterday evening showed a WBC count of 7.8, hemoglobin 7.1, hematocrit 22.7, platelets 120. No obvious acute blood loss was noted. Most recent available BMP shows sodium 140, potassium 4.6, chloride 107, serum bicarb 15, BUN 107, creatinine 7.82, glucose 282. Acetone negative. LFTs not elevated. CPK 1240. Currently, 3 A sodium bicarb in D5W is infusing at 100 ML's per hour. There is also normal saline infusing at 130 ML's per hour. Patient is currently anuric. Troponins elevated at 0.457, 0.388, and 0.422 respectively. ECG shows normal sinus rhythm without any obvious acute ischemic changes. Urinalysis not concerning for UTI. Lactic acid level was elevated at 4 is down 1.6. Negative for influenza, RSV, COVID- 19. Patient was started on empiric antibiotics in the form of ceftriaxone and azithromycin. Currently afebrile. Patient's condition is currently critical, moderate in the intensive care unit. On 03/10/2023, the patient is resting comfortably. Breathing is nonlabored and the patient is on 4 L of oxygen by nasal cannula with a pulse ox of 97%. He has a IV daily for enteral feeding for nutritional support. His chest x-ray from today is showing significant volume loss in the left lung. Suspect mucus plugging as the patient has of optimal ability to do adequate pulmonary toileting. Based on that, the plan was to do a bedside bronchoscopy for therapeutic airway suctioning. . It is possible also that there may be some limited pleural effusion and left lung. The patient was echoes at 12.3, hemoglobin is 8.6, platelet count is 175, BUN is at 75 with a creatinine of 3.06. Sodium is at 133. Last hemodialysis session was yesterday. Note that the patient had a Legionella pneumonia in the left lower lobe and the patient continued to have a persistent consolidation of the left lung base. He remains on Levaquin. She remains on Eraxis. Infectious diseases on the case. He is on no pressors at this point in time. On Levemir insulin, 15 units at bedtime and 10 units in the morning. Is also on NovoLog siding scale coverage. He remains on metoprolol 25 mg 3 times a day.. Last hemodialysis session was yesterday and the patient is producing adequate amount of urine output for the time being. . On 03/11/2023, the patient is post bronchoscopy. The repeat chest x-ray was done today and the patient has ongoing consolidation of the left lung base related to residual pneumonia. Is improvement in volume status examination of the left lung. He remains on oxygen at 4 L/m nasal cannula. He continues to receive enteral feeding for nutritional support. He is still weak and having episodes of confusion. Is communicating for now. He has profound motor weakness in all 4 extremities. He remains on Levaquin. No nausea. No abd ominal pain or distention. He is producing urine output. No plans for dialysis today. He has of 87 with a creatinine of 3.97 and sodium is 135. WBC count 10.7 with a hemoglobin of 7.9. Oxygenation is further improved. The patient's current on room air oxygen with a pulse ox of 93%. He is on Levemir insulin 10 units in addition to sliding scale coverage. Heparin subcu for prophylaxis. Patient was reevaluated today on 03/12/2023, patient remains in the ICU, continues to have a significant left lower lobe consolidation. Remains on Lasix drip at 10 mg per hour, patient has excellent urine output, -3 L in the last 24 hours. Patient remains on Eraxis and on Levaquin. Ultrasound of the chest was ordered today to consider left-sided thoracentesis if there is enough fluid to drain. His BUN is 97 creatinine 4.84, his last dialysis was on 03/09 may be considered for hemodialysis catheter placement. Patient is wondering when he could go home, and I explained to them that he is not quite ready continues to have many issues to address. And he needs to BE cleared by all the consultants. Continues to have chronic wounds in both feet. Continues to be followed by many consultants. WBC count today is 7.8 hemoglobin 7.6 electrolytes are normal BUN is 97 creatinine 4.84. Ultrasound of the chest failed to show any pleural effusion in the left pleural space, hence the findings are mostly findings of strictly consolidation in the left lower lobe. Patient will reevaluated today on 03/13/23, remains in the ICU, patient remains on Lasix at 5 mg per hour, he has excellent urine output however his renal functioning seems to be getting worse. He was seen by nephrology today, and now the recommendation is to place a permacath, and possibly start dialysis on this patient. Creatinine is up to 5.99. In the meantime the patient could be considered for transfer to a 3 S. bad/monitor bed on selective. Patient is still receiving treatment for his Legionella pneumonia and sepsis. Remains on Levaquin. Chest x-ray showed significant improvement today in his left lower lobe consolidation, and again his ultrasound did not show any fluid to drain WBC count is 8 hemoglobin 7.5 electrolytes are relatively normal except for potassium of 5.4 and he had a BUN of 101 creatinine 5.99 Patient was today on 03/14/23, patient continues to feel down, refusing any treatment including oral medications, however the patient seems to be in no distress. On room air with O2 sat shows 95%, he is hemodynamically stable with blood pressure of 116/83, patient is supposed to undergo hemodialysis today, hopefully he doesn't declined hemodialysis. Patient was seen by psychiatry, and he is refusing to take his medication orally. Labs are basically unremarkable including CBC and basic metabolic profile is creatinine is 3.24 and he is supposed to get dialysis today. Reevaluated today on 03/15 patient is doing well, relatively asymptomatic, patient did undergo dialysis yesterday, being followed by cardiology and still considering cardiac catheterization on this patient after his kidney functioning improves and after hemodialysis. Today's BUN is 25 creatinine 2.19, steadily improving with hemodialysis. Chest x-ray continues to show left lower lobe atelectasis/pneumonia although clinically the patient is much better,, patient did have Legionella pneumonia treated The patient is seen today 03/16/2023 in follow-up on the selective care unit. He is currently resting comfortably in bed. Awake and alert in no acute distress. He is receiving hemodialysis. Currently in a negative balance. Bronchial wash cultures revealed no growth. White count 3.8. Hemoglobin 8.1. Platelets 231. Sodium 135. Potassium 4.3. Bicarb 26. BUN 36. Creatinine 3.72. Glucose 122. He remains on oral diuretics. Heparin for DVT prophylaxis. Antibiotics in the form of Levaquin. The patient is seen today 03/17/2023 in follow-up on the selective care unit. He is currently sitting up in bed. Awake and alert in no acute distress. Maintaining good O2 saturations in the 90s on room air. He's been afebrile. Hemodynamically stable. Finalized bronchial wash cultures revealed no growth. Urine culture revealed no growth. Blood cultures revealed no growth. Sputum culture revealed no growth. White count 3.7. Hemoglobin 8.4. Platelets 198. Glucose 146. He remains on Levaquin per ID services. Heparin for DVT prophylaxis. Oral diuretics. Currently in a -1.2 L balance. Objective - Vital Signs Vital signs: Vital Signs Temp 97.6 F 03/17/23 11:27 Pulse 93 03/17/23 11:27 Resp 16 03/17/23 11:27 BP 142/79 03/17/23 11:27 Pulse Ox 96 03/17/23 11:27 FiO2 40 03/11/23 08:05 Intake & Output 03/16/23 03/17/23 03/17/23 18:59 06:59 18:59 Intake Total 1141 138 Output Total 2125 300 150 Balance -984 -300 -12 Weight 72.7 kg 69.5 kg Intake: IV 25 20 Invasive Line 1 15 20 Invasive Line 10 10 Oral 716 118 Hemodialysis 400 Output: Urine 325 300 150 Uretheral (Lay) 325 150 Hemodialysis 1800 Other: Voiding Method Indwelling Catheter Indwelling Catheter Indwelling Catheter # Voids 0 ABP, PAP, CO, CI - Last Documented Arterial Blood Pressure 72/72 - Exam GENERAL EXAM: Alert, flat affect, 62-year-old male, sitting up in bed, comfortable in no apparent distress. HEAD: Normocephalic. EYES: Normal reaction of pupils, equal size. NOSE: Clear with pink turbinates. THROAT: No erythema or exudates. NECK: Right IJ hemodialysis catheter in place. No masses, no JVD. CHEST: No chest wall deformity. LUNGS: Equal air entry with crackles in the left lung base. CVS: S1 and S2 normal with no audible murmur, regular rhythm. ABDOMEN: No hepatosplenomegaly, normal bowel sounds, no guarding or rigidity. SPINE: No scoliosis or deformity SKIN: No rashes CENTRAL NERVOUS SYSTEM: No focal deficits, tone is normal in all 4 extremities. EXTREMITIES: Edema to the bilateral lower extremities. No clubbing, no cyanosis. Peripheral pulses are intact. - Labs CBC & Chem 7: 03/17/23 11:01 03/16/23 06:02 Labs: Abnormal Lab Results - Last 24 Hours (Table) 03/16/23 03/16/23 03/17/23 Range/Units 16:24 20:03 05:55 WBC (3.8-10.6) k/uL RBC (4.30-5.90) m/uL Hgb (13.0-17.5) gm/dL Hct (39.0-53.0) % POC Glucose (mg/dL) 160 H 139 H 120 H (70-110) mg/dL 03/17/23 03/17/23 Range/Units 11:01 11:46 WBC 3.7 L (3.8-10.6) k/uL RBC 2.98 L (4.30-5.90) m/uL Hgb 8.4 L (13.0-17.5) gm/dL Hct 26.2 L (39.0-53.0) % POC Glucose (mg/dL) 146 H (70-110) mg/dL Assessment and Plan Assessment: Witnessed PEA cardiac arrest with down time of less than 5 minutes Acute anoxic encephalopathy, recovered Acute hypoxic respiratory failure secondary to above, recovered Acute left lower lobe pneumonia secondary to Legionella pneumonia and remains on Levaquin Severe cardiomyopathy and ejection fraction of 20-25% Cardiogenic shock, recovered Acute on chronic stage IV kidney disease, receiving hemodialysis Acute rhabdomyolysis Anemia of chronic disease Insulin-dependent diabetes Dyslipidemia Superficial vein thrombosis of the cephalic veins based on ultrasound Chronic diarrhea negative C. difficile screening Chronic draining wounds in both feet Plan: The patient was seen and evaluated Labs and medications reviewed Remains on Levaquin Remains on oral diuretics Heparin for DVT prophylaxis Currently stable and on room air Plan will be for subacute rehab at discharge We will continue to follow This patient was seen individually by the nurse practitioner I have personally seen and examined the patient, performed the documentation and the assessment and plan as written. Number of minutes spent on the visit: 22.
[2023-03-17 12:13] LABS: ALT 15 U/L (4-49); AST 20 U/L (17-59); African American GFR (CKD) 24 (>60 ml/min/1.73 sqM); Albumin 2.9 g/dL (3.5-5.0); Alkaline Phosphatase 134 U/L (38-126); Anion Gap 9 mmol/L; Blood Urea Nitrogen 27 mg/dL (9-20); Calcium 8.4 mg/dL (8.4-10.2); Carbon Dioxide 28 mmol/L (22-30); Chloride 99 mmol/L (98-107); Glucose 143 mg/dL (74-99); Non-African American GFR(CKD) 21 (>60 ml/min/1.73 sqM); Potassium 4.2 mmol/L (3.5-5.1); Sodium 136 mmol/L (137-145); Total Bilirubin 0.8 mg/dL (0.2-1.3); Total Protein 6.2 g/dL (6.3-8.2)
--- NOTE | 2023-03-17 13:09 | P.PN ---
Subjective Progress Note Date: 03/17/23 Follow-up for acute kidney injury. On dialysis, started on 03/01/2023. Had dialysis yesterday, tolerated well. Objective - Vital Signs Vital signs: Vital Signs Temp 97.6 F 03/17/23 11:27 Pulse 93 03/17/23 11:27 Resp 16 03/17/23 11:27 BP 142/79 03/17/23 11:27 Pulse Ox 96 03/17/23 11:27 FiO2 40 03/11/23 08:05 Intake & Output 03/16/23 03/17/23 03/17/23 18:59 06:59 18:59 Intake Total 1141 256 Output Total 2125 300 150 Balance -984 -300 106 Weight 72.7 kg 69.5 kg Intake: IV 25 20 Invasive Line 1 15 20 Invasive Line 10 10 Oral 716 236 Hemodialysis 400 Output: Urine 325 300 150 Uretheral (Lay) 325 150 Hemodialysis 1800 Other: Voiding Method Indwelling Catheter Indwelling Catheter Indwelling Catheter # Voids 0 ABP, PAP, CO, CI - Last Documented Arterial Blood Pressure 72/72 - Exam No acute distress S1-S2 heard Decreased breath sounds Lay catheter Edema - Labs CBC & Chem 7: 03/17/23 11:01 03/17/23 11:01 Labs: Abnormal Lab Results - Last 24 Hours (Table) 03/16/23 03/16/23 03/17/23 Range/Units 16:24 20:03 05:55 WBC (3.8-10.6) k/uL RBC (4.30-5.90) m/uL Hgb (13.0-17.5) gm/dL Hct (39.0-53.0) % Sodium (137-145) mmol/L BUN (9-20) mg/dL Creatinine (0.66-1.25) mg/dL Glucose (74-99) mg/dL POC Glucose (mg/dL) 160 H 139 H 120 H (70-110) mg/dL Alkaline Phosphatase (38-126) U/L Total Protein (6.3-8.2) g/dL Albumin (3.5-5.0) g/dL 03/17/23 03/17/23 03/17/23 Range/Units 11:01 11:01 11:46 WBC 3.7 L (3.8-10.6) k/uL RBC 2.98 L (4.30-5.90) m/uL Hgb 8.4 L (13.0-17.5) gm/dL Hct 26.2 L (39.0-53.0) % Sodium 136 L (137-145) mmol/L BUN 27 H (9-20) mg/dL Creatinine 3.09 H (0.66-1.25) mg/dL Glucose 143 H (74-99) mg/dL POC Glucose (mg/dL) 146 H (70-110) mg/dL Alkaline Phosphatase 134 H (38-126) U/L Total Protein 6.2 L (6.3-8.2) g/dL Albumin 2.9 L (3.5-5.0) g/dL Assessment and Plan Assessment: #1 Acute kidney injury dialysis dependent secondary to hemodynamic ATN. -Baseline creatinine around 3.1-3.4 MG per DL. #2 status post cardiopulmonary arrest #3 diabetic kidney disease stage IIIB. #4 shock on levo fed #5 volume overload #6 hypervolemic hyponatremia Plan: #1 hemodialysis MWF schedule. Currently has a PermCath. #2 next treatment on Sunday. #3 midodrine for hemodynamic support.
--- NOTE | 2023-03-17 15:00 | P.PN ---
Subjective Progress Note Date: 03/17/23 Principal diagnosis: Pnemonia CC: Cough Subjective: Mr. Clay was seen and examined. Poor historian. Denies shortness of breath. No chest pain. Plan of care discussed with him. Objective: Vitals: Reviewed General: No acute distress HEENT: Mucous membranes moist neck supple Cardiovascular: RRR, S1-S2 Lungs: Breath sounds equal and clear to auscultation bilaterally. No wheezing, rhonchi or rales Abdomen: Soft, nontender, nondistended Extremities: No lower extremity edema Pertinent labs and imaging reviewed Assessment and plan: 1. Septic shock secondary to Legionella pneumonia, septic shock is resolved Acute hypoxic respiratory failure secondary to #1 Oral pharyngeal candidiasis Left mucous plug status post bronchoscopy on 03/10 Continue with Levaquin. Nystatin swish and swallow for thrush. 2. Metabolic encephalopathy Likely secondary to sepsis. 3. Elevated troponin likely demand ischemia HF R EF, new diagnosis Cardiology plan for cardiac cath while inpatient. Continue metoprolol. 4. DM 2 Blood sugars controlled. Continue sliding scale. 5. Acute kidney injury on CKD likely secondary to ATN Anemia of CKD On HD. Renally dose meds. 6. Superficial thrombophlebitis of left cephalic vein 7. Rhabdomyolysis Resolved 8. Thrombocytopenia HIT panel negative.Plt count has normalized. 9. PEA arrest Likely secondary to septic shock. ROSC achieved 10. Unspecific psych disorder Continue with Prozac and fluphenazine VTE prophylaxis with subcu heparin Objective - Vital Signs Vital signs: Vital Signs Temp 97.6 F 03/17/23 11:27 Pulse 93 03/17/23 11:27 Resp 16 03/17/23 11:27 BP 142/79 03/17/23 11:27 Pulse Ox 96 03/17/23 11:27 FiO2 40 03/11/23 08:05 Intake & Output 03/16/23 03/17/23 03/17/23 18:59 06:59 18:59 Intake Total 1141 256 Output Total 2125 300 150 Balance -984 -300 106 Weight 72.7 kg 69.5 kg Intake: IV 25 20 Invasive Line 1 15 20 Invasive Line 10 10 Oral 716 236 Hemodialysis 400 Output: Urine 325 300 150 Uretheral (Lay) 325 150 Hemodialysis 1800 Other: Voiding Method Indwelling Catheter Indwelling Catheter Indwelling Catheter # Voids 0 ABP, PAP, CO, CI - Last Documented Arterial Blood Pressure 72/72 - Labs CBC & Chem 7: 03/17/23 11:01 03/17/23 11:01 Labs: Abnormal Lab Results - Last 24 Hours (Table) 03/16/23 03/16/23 03/17/23 Range/Units 16:24 20:03 05:55 WBC (3.8-10.6) k/uL RBC (4.30-5.90) m/uL Hgb (13.0-17.5) gm/dL Hct (39.0-53.0) % Sodium (137-145) mmol/L BUN (9-20) mg/dL Creatinine (0.66-1.25) mg/dL Glucose (74-99) mg/dL POC Glucose (mg/dL) 160 H 139 H 120 H (70-110) mg/dL Alkaline Phosphatase (38-126) U/L Total Protein (6.3-8.2) g/dL Albumin (3.5-5.0) g/dL 03/17/23 03/17/23 03/17/23 Range/Units 11: 11:01 11:46 WBC 3.7 L (3.8-10.6) k/uL RBC 2.98 L (4.30-5.90) m/uL Hgb 8.4 L (13.0-17.5) gm/dL Hct 26.2 L (39.0-53.0) % Sodium 136 L (137-145) mmol/L BUN 27 H (9-20) mg/dL Creatinine 3.09 H (0.66-1.25) mg/dL Glucose 143 H (74-99) mg/dL POC Glucose (mg/dL) 146 H (70-110) mg/dL Alkaline Phosphatase 134 H (38-126) U/L Total Protein 6.2 L (6.3-8.2) g/dL Albumin 2.9 L (3.5-5.0) g/dL
[2023-03-17 16:28] LABS: Glucose,Whole Blood 153 mg/dL (70-110)
[2023-03-17] MEDS: LEVOFLOXACIN 750 MG TAB PO SCH (17:12)
--- NOTE | 2023-03-17 17:13 | P.PN ---
Subjective Progress Note Date: 03/17/23 Principal diagnosis: Sepsis and Legionella pneumonia Patient is a 62-year-old male with a past medical history significant for diabetes mellitus hypertension renal insufficiency patient was brought into the ER concerning for weakness and did have some respiratory symptoms patient did have a fever and worsening respiratory status requiring intubation and admission to the ICU the patient urine for digital antigen came back positive evening of 03/01/2023. Patient is status post bronchoscopy and lavage for mucus plugging on 03/10/2023 On today's evaluation that is 03/17/2023, the patient is afebrile, the patient is breathing comfortably on room air and denies shortness of breath, no chest pain the patient cough has decreased intensity with occasional sputum pro duction, patient denies nausea/vomiting abdominal pain or diarrhea Patient white count is 3.7, creatinine is 3.09, blood and sputum cultures has been negative, urine for Legionella antigen is positive, stool for C. diff is negative, BAL cultures negative so far Objective - Vital Signs Vital signs: Vital Signs Temp 97.8 F 03/17/23 08:10 Pulse 101 H 03/17/23 08:10 Resp 16 03/17/23 08:10 BP 133/71 03/17/23 08:10 Pulse Ox 95 03/17/23 08:10 FiO2 40 03/11/23 08:05 Intake & Output 03/16/23 03/17/23 03/17/23 18:59 06:59 18:59 Intake Total 1141 5 Output Total 2125 300 Balance -984 -300 5 Weight 72.7 kg 69.5 kg Intake: IV 25 5 Invasive Line 1 15 5 Invasive Line 10 10 Oral 716 Hemodialysis 400 Output: Urine 325 300 Uretheral (Lay) 325 Hemodialysis 1800 Other: Voiding Method Indwelling Catheter Indwelling Catheter Indwelling Catheter # Voids 0 ABP, PAP, CO, CI - Last Documented Arterial Blood Pressure 72/72 - Exam GENERAL DESCRIPTION: Middle-aged male lying in bed in no distress RESPIRATORY SYSTEM: Unlabored breathing , decreased breath sound at the base HEART: S1 S2 regular rate and rhythm , ABDOMEN: Soft , no tenderness EXTREMITIES: No edema feet - Labs CBC & Chem 7: 03/17/23 11:01 03/17/23 11:01 Labs: Abnormal Lab Results - Last 24 Hours (Table) 03/16/23 03/16/23 03/16/23 Range/Units 11:36 16:24 20:03 POC Glucose (mg/dL) 121 H 160 H 139 H (70-110) mg/dL 03/17/23 Range/Units 05:55 POC Glucose (mg/dL) 120 H (70-110) mg/dL Assessment and Plan (1) Legionella pneumonia Current Visit: Yes Status: Acute Code(s): A48.1 - LEGIONNAIRES' DISEASE SNOMED Code(s): 559891379 (2) Sepsis Current Visit: Yes Status: Acute Code(s): A41.9 - SEPSIS, UNSPECIFIED ORGANISM SNOMED Code(s): 69298736 Plan: 1patient presented to hospital with sepsis in this patient with a fever tachycardia hypotension source is likely left lower lobe pneumonia in this patient with weakness lethargy and decreased level of responsiveness , patient has been diagnosed with Legionella pneumonia 2- leukocytosis possible oropharyngeal candidiasis, patient white count has normalized with eraxis we will continue the patient on Eraxis , plan is to transition to nystatin swish and swallow and his oral intake improves 3-Pt with legionella Pneumonia , pt has shown clinical improvment as for as pneumonia ,Pt to continue with levaquin and monitor clinical course closely Dictation was produced using [employer] dictation software. please excuse any grammatical, word or spelling errors. Time with Patient: Less than 30
[2023-03-17 20:04] LABS: Glucose,Whole Blood 143 mg/dL (70-110)
[2023-03-17] MEDS: METOPROLOL TARTRATE 50 MG TAB PO SCH (20:32)
[2023-03-17] MEDS: MELATONIN 5 MG TABLET PO SCH (20:32)
[2023-03-18 04:53] LABS: HCT 26.7 % (39.0-53.0); HGB 8.3 gm/dL (13.0-17.5); Hypochromasia Moderate; MCH 27.4 pg (25.0-35.0); MCV 88.5 fL (80.0-100.0); Platelet Count 195 k/uL (150-450); RBC 3.01 m/uL (4.30-5.90); RDW 15.4 % (11.5-15.5); WBC 3.5 k/uL (3.8-10.6)
[2023-03-18 05:01] LABS: African American GFR (CKD) 17 (>60 ml/min/1.73 sqM); Anion Gap 12 mmol/L; Blood Urea Nitrogen 34 mg/dL (9-20); Calcium 8.5 mg/dL (8.4-10.2); Carbon Dioxide 25 mmol/L (22-30); Chloride 100 mmol/L (98-107); Glucose 106 mg/dL (74-99); Non-African American GFR(CKD) 15 (>60 ml/min/1.73 sqM); Potassium 4.5 mmol/L (3.5-5.1); Sodium 137 mmol/L (137-145)
[2023-03-18 06:30] LABS: Glucose,Whole Blood 113 mg/dL (70-110)
[2023-03-18] MEDS: INSULIN ASPART (NovoLOG) 100 UNIT/ML VIAL SQ SCH ×4 (06:32→22:45)
[2023-03-18 08:55] LABS: Basophils # (M) 0.04 k/uL (0-0.2); Lymphocytes # (M) 0.39 k/uL (1.0-4.8); Monocytes # (M) 0.18 k/uL (0-1.0); Neutrophils # (M) 2.91 k/uL (1.3-7.7); Neutrophils % (M) 83 %; Nucleated Red Blood Cells 0 /100 WBC (0-0); Total Cells Counted 100
[2023-03-18 08:56] LABS: Poikilocytosis (M) Present
[2023-03-18] MEDS: HEPARIN SODIUM,PORCINE 5,000 UNIT/ML 1 ML VIAL SQ SCH ×2 (09:56→22:23)
[2023-03-18] MEDS: FOLIC ACID 1 MG TAB PO SCH (09:56)
[2023-03-18] MEDS: FLUoxetine HCL 20 MG CAP PO SCH (09:56)
[2023-03-18] MEDS: allopurinoL 100 MG TAB PO SCH (09:56)
[2023-03-18] MEDS: METOPROLOL TARTRATE 50 MG TAB PO SCH ×2 (09:56→22:23)
[2023-03-18] MEDS: PANTOPRAZOLE 40 MG/10 ML VIAL IVP SCH (09:56)
[2023-03-18] MEDS: TORSEMIDE 20 MG TAB PO SCH (10:49)
[2023-03-18] MEDS: NYSTATIN 100,000 UNIT/ML SUSP 500,000 UNIT/5 ML CUP PO SCH ×4 (10:49→22:24)
[2023-03-18] MEDS: SODIUM BICARBONATE TAB 650 MG TAB PO SCH ×2 (10:51→22:23)
[2023-03-18 11:58] LABS: Glucose,Whole Blood 140 mg/dL (70-110)
--- NOTE | 2023-03-18 12:59 | P.PN ---
Subjective Progress Note Date: 03/18/23 Principal diagnosis: Cardiomyopathy/cardiac arrest The patient is a 62-year-old gentleman who was admitted to the hospital after a fall and subsequently he developed cardiac arrest with PEA. Further investigation including an echo was performed and showed severe cardiomyopathy. Troponin was mildly elevated. He was in renal failure. He was anemic. In 03/12/2023 The patient was seen and evaluated. Currently he is stable. He is on Lasix drip by the nephrology service. He is on metoprolol only because his pressure has been on the low side. He still anemic. He still renal failure. The decision to be made regarding permanent hemodialysis catheter. From the Cardec standpoint of view, I would continue the current medical regimen to renal the patient need permanent dialysis or not. Definitely heart catheterization need to be done in the next few days or as an outpatient to rule out severe underlying coronary artery disease for the cardiomyopathy. Meanwhile will continue the current medical regimen. On examination he does have regular rhythm with diminished breathing sounds bilaterally and bilateral lower extremity is edema noted. 03/13/2023 [place] the patient was seen and evaluated this morning. The plan is to pursue with replacing the dialysis catheter. His creatinine has not been improving in spite of patient's making urine. Otherwise he remains stable hemodynamically. He remains in normal sinus mechanism. He does need to undergo coronary angiogram down the line to find out the etiology for cardiomyopathy. Meanwhile will continue the current medical regimen. He continues to be on Lasix IV by the nephrology service. The examination is remarkable for mild change in mental status with regular rate and rhythm and diminished breathing so unds bilaterally March [id number] The patient was seen and evaluated this morning. The creatinine has been improving. He remains in sinus mechanism. No chest pain or chest discomfort. The examination is remarkable for diminished breathing sounds bilaterally and mild chronic skin changes. His mentation has improved 03/15/2023 The patient was seen and evaluated this morning. His creatinine has been trending down. The hemoglobin remains stable. He is asymptomatic. He is maintaining normal sinus mechanism. For the cardiovascular medications he is on metoprolol at this point. He needs to be on ELROY inhibitor or ARB down the line 160 kidney function improved. He also needs to undergo coronary angiogram with the kidney function improved. Meanwhile will continue the current medical regimen. 03/16/2023 The patient was seen and evaluated this morning. He remains stable. He is a symptomatic. Currently he is having dialysis. He is on beta rhys. The examination is remarkable for regular rhythm with clear breathing sounds bilaterally and no edema in the lower extremities. 03/17/2023 The patient was seen this morning. He remains tachycardic and did have an episode of nonsustained ventricular tachycardia yesterday. His pressure remains stable. I'm going to increase the dose of metoprolol at this point and continue the rest of the current medical regimen. He continues to be on dialysis. Examination is unremarkable 03/18/2023 The patient was seen and evaluated this morning. His mentation has improved significantly. He remains hemodynamically stable. He continues to be on dialysis. I am going to repeat the echocardiogram to see if there is any improvement in the LV systolic function. If he continues to have cardiomyopathy he definitely to undergo a heart catheterization to rule out severe CAD given his multiple risk factors. Also the cardiomyopathy could be related to hypertensive heart disease closely cardiomyopathy as well as the renal failure. That plan was discussed with the family in the room today. Meanwhile I would continue the current medical regimen including the current dose of beta rhys and also start the patient on lisinopril at 2.5 mg daily if it's okay from the nephrology standpoint overview. No more episodes of nonsustained ventricular tachycardia. The examination is remarkable for regular rhythm with a systolic murmur at the right and left upper sternal border with a clear breathing sounds bilaterally and no edema in the lower extremities Assessment History of cardiac arrest as described above Cardiomyopathy of unknown etiology Renal failure Anemia Nonsustained ventricular tachycardia Plan Continue the current medical regimen Add small dose of lisinopril to the current medical regimen Consider optimize medical treatment for cardiomyopathy Repeat the echocardiogram to assess for improvement in the ejection fraction Consider coronary angiogram to rule out severe CAD Objective - Vital Signs Vital signs: Vital Signs Temp 98.2 F 03/18/23 07:47 Pulse 89 03/18/23 07:47 Resp 16 03/18/23 07:47 BP 145/83 03/18/23 07:47 Pulse Ox 96 03/18/23 07:47 FiO2 40 03/11/23 08:05 Intake & Output 03/17/23 03/18/23 03/18/23 18:59 06:59 18:59 Intake Total 1034 Output Total 450 450 Balance 584 -450 Intake: IV 20 Invasive Line 1 20 Oral 1014 Output: Urine 450 450 Uretheral (Lay) 450 Other: Voiding Method Indwelling Catheter Indwelling Catheter # Bowel Movements 1 ABP, PAP, CO, CI - Last Documented Arterial Blood Pressure 72/72 - Labs CBC & Chem 7: 03/18/23 04:32 03/18/23 04:32 Labs: Abnormal Lab Results - Last 24 Hours (Table) 03/17/23 03/17/23 03/18/23 Range/Units 16:27 20:03 04:32 WBC 3.5 L (3.8-10.6) k/uL RBC 3.01 L (4.30-5.90) m/uL Hgb 8.3 L (13.0-17.5) gm/dL Hct 26.7 L (39.0-53.0) % Lymphocytes # (Manual) 0.39 L (1.0-4.8) k/uL BUN (9-20) mg/dL Creatinine (0.66-1.25) mg/dL Glucose (74-99) mg/dL POC Glucose (mg/dL) 153 H 143 H (70-110) mg/dL 03/18/23 03/18/23 03/18/23 Range/Units 04:32 06:28 11:57 WBC (3.8-10.6) k/uL RBC (4.30-5.90) m/uL Hgb (13.0-17.5) gm/dL Hct (39.0-53.0) % Lymphocytes # (Manual) (1.0-4.8) k/uL BUN 34 H (9-20) mg/dL Creatinine 4.04 H (0.66-1.25) mg/dL Glucose 106 H (74-99) mg/dL POC Glucose (mg/dL) 113 H 140 H (70-110) mg/dL
--- NOTE | 2023-03-18 13:24 | P.PN ---
Subjective Progress Note Date: 03/18/23 I am seeing this patient in new consultation today 03/01/2023 in the intensive care unit, after the patient had a witnessed PEA cardiac arrest while on the Observation unit. Patient is a 62-year-old white male with past medical history significant for diabetes mellitus, diabetic foot ulcers, hypertension, hyperlipidemia, iron deficiency anemia, chronic kidney disease. Patient is currently sedated and intubated on the mechanical ventilator. He was admitted yesterday morning, after being found on the floor by his father. Apparently, the patient denied hitting his head or losing consciousness. Patient does have diabetes mellitus, and his blood sugars had been running high at home. Chest x- ray on admission showed a left lower lobe infiltrate consistent with community acquired pneumonia. Patient did have a fever with a T-max of 100.7F. Apparently, after being admitted to the observation unt, the patient was noted to have low blood pressure. The patient was given 1 L normal saline bolus and 5 amps sodium bicarb. Soon after, the patient had a cardiac arrest. Presenting rhythm was PEA. Patient had a limited downtime of less than 5 minutes. He received 1 mg of epinephrine. Rapid sequence intubation was performed. The patient was then transferred to the intensive care unit. Dr. Lacy did come in and place a left subclavian central line catheter and a right wrist arterial line. Patient was also noted to be in acute renal failure. He did have a right femoral hemodialysis catheter placed earlier, and is currently undergoing emergent hemodialysis. Patient is currently in the intensive care unit, intubated to the mechanical ventilator. He is sedated on propofol which is currently infusing at 40 mcg/kg/m. He is synchronous with the mechanical ventilator. Postintubation ABG shows a pO2 greater than 400, pCO2 27, pH of 7.43, this was done on ventilator settings of assist control, respiratory rate 22, tidal volume 500, FiO2 100%, and PEEP of 5. Patient's FiO2 was dropped to 50%. Peak pressures 27. Post intubation chest x-ray shows the endotracheal tube 4 cm above the anika. Oral gastric tube could be advanced 5 cm. There is a persistent left lower lobe infiltrate. Most recent CBC from yesterday evening showed a WBC count of 7.8, hemoglobin 7.1, hematocrit 22.7, platelets 120. No obvious acute blood loss was noted. Most recent available BMP shows sodium 140, potassium 4.6, chloride 107, serum bicarb 15, BUN 107, creatinine 7.82, glucose 282. Acetone negative. LFTs not elevated. CPK 1240. Currently, 3 A sodium bicarb in D5W is infusing at 100 ML's per hour. There is also normal saline infusing at 130 ML's per hour. Patient is currently anuric. Troponins elevated at 0.457, 0.388, and 0.422 respectively. ECG shows normal sinus rhythm without any obvious acute ischemic changes. Urinalysis not concerning for UTI. Lactic acid level was elevated at 4 is down 1.6. Negative for influenza, RSV, COVID- 19. Patient was started on empiric antibiotics in the form of ceftriaxone and azithromycin. Currently afebrile. Patient's condition is currently critical, moderate in the intensive care unit. On 03/10/2023, the patient is resting comfortably. Breathing is nonlabored and the patient is on 4 L of oxygen by nasal cannula with a pulse ox of 97%. He has a IV daily for enteral feeding for nutritional support. His chest x-ray from today is showing significant volume loss in the left lung. Suspect mucus plugging as the patient has of optimal ability to do adequate pulmonary toileting. Based on that, the plan was to do a bedside bronchoscopy for therapeutic airway suctioning. . It is possible also that there may be some limited pleural effusion and left lung. The patient was echoes at 12.3, hemoglobin is 8.6, platelet count is 175, BUN is at 75 with a creatinine of 3.06. Sodium is at 133. Last hemodialysis session was yesterday. Note that the patient had a Legionella pneumonia in the left lower lobe and the patient continued to have a persistent consolidation of the left lung base. He remains on Levaquin. She remains on Eraxis. Infectious diseases on the case. He is on no pressors at this point in time. On Levemir insulin, 15 units at bedtime and 10 units in the morning. Is also on NovoLog siding scale coverage. He remains on metoprolol 25 mg 3 times a day.. Last hemodialysis session was yesterday and the patient is producing adequate amount of urine output for the time being. . On 03/11/2023, the patient is post bronchoscopy. The repeat chest x-ray was done today and the patient has ongoing consolidation of the left lung base related to residual pneumonia. Is improvement in volume status examination of the left lung. He remains on oxygen at 4 L/m nasal cannula. He continues to receive enteral feeding for nutritional support. He is still weak and having episodes of confusion. Is communicating for now. He has profound motor weakness in all 4 extremities. He remains on Levaquin. No nausea. No abd ominal pain or distention. He is producing urine output. No plans for dialysis today. He has of 87 with a creatinine of 3.97 and sodium is 135. WBC count 10.7 with a hemoglobin of 7.9. Oxygenation is further improved. The patient's current on room air oxygen with a pulse ox of 93%. He is on Levemir insulin 10 units in addition to sliding scale coverage. Heparin subcu for prophylaxis. Patient was reevaluated today on 03/12/2023, patient remains in the ICU, continues to have a significant left lower lobe consolidation. Remains on Lasix drip at 10 mg per hour, patient has excellent urine output, -3 L in the last 24 hours. Patient remains on Eraxis and on Levaquin. Ultrasound of the chest was ordered today to consider left-sided thoracentesis if there is enough fluid to drain. His BUN is 97 creatinine 4.84, his last dialysis was on 03/09 may be considered for hemodialysis catheter placement. Patient is wondering when he could go home, and I explained to them that he is not quite ready continues to have many issues to address. And he needs to BE cleared by all the consultants. Continues to have chronic wounds in both feet. Continues to be followed by many consultants. WBC count today is 7.8 hemoglobin 7.6 electrolytes are normal BUN is 97 creatinine 4.84. Ultrasound of the chest failed to show any pleural effusion in the left pleural space, hence the findings are mostly findings of strictly consolidation in the left lower lobe. Patient will reevaluated today on 03/13/23, remains in the ICU, patient remains on Lasix at 5 mg per hour, he has excellent urine output however his renal functioning seems to be getting worse. He was seen by nephrology today, and now the recommendation is to place a permacath, and possibly start dialysis on this patient. Creatinine is up to 5.99. In the meantime the patient could be considered for transfer to a 3 S. bad/monitor bed on selective. Patient is still receiving treatment for his Legionella pneumonia and sepsis. Remains on Levaquin. Chest x-ray showed significant improvement today in his left lower lobe consolidation, and again his ultrasound did not show any fluid to drain WBC count is 8 hemoglobin 7.5 electrolytes are relatively normal except for potassium of 5.4 and he had a BUN of 101 creatinine 5.99 Patient was today on 03/14/23, patient continues to feel down, refusing any treatment including oral medications, however the patient seems to be in no distress. On room air with O2 sat shows 95%, he is hemodynamically stable with blood pressure of 116/83, patient is supposed to undergo hemodialysis today, hopefully he doesn't declined hemodialysis. Patient was seen by psychiatry, and he is refusing to take his medication orally. Labs are basically unremarkable including CBC and basic metabolic profile is creatinine is 3.24 and he is supposed to get dialysis today. Reevaluated today on 03/15 patient is doing well, relatively asymptomatic, patient did undergo dialysis yesterday, being followed by cardiology and still considering cardiac catheterization on this patient after his kidney functioning improves and after hemodialysis. Today's BUN is 25 creatinine 2.19, steadily improving with hemodialysis. Chest x-ray continues to show left lower lobe atelectasis/pneumonia although clinically the patient is much better,, patient did have Legionella pneumonia treated The patient is seen today 03/16/2023 in follow-up on the selective care unit. He is currently resting comfortably in bed. Awake and alert in no acute distress. He is receiving hemodialysis. Currently in a negative balance. Bronchial wash cultures revealed no growth. White count 3.8. Hemoglobin 8.1. Platelets 231. Sodium 135. Potassium 4.3. Bicarb 26. BUN 36. Creatinine 3.72. Glucose 122. He remains on oral diuretics. Heparin for DVT prophylaxis. Antibiotics in the form of Levaquin. The patient is seen today 03/17/2023 in follow-up on the selective care unit. He is currently sitting up in bed. Awake and alert in no acute distress. Maintaining good O2 saturations in the 90s on room air. He's been afebrile. Hemodynamically stable. Finalized bronchial wash cultures revealed no growth. Urine culture revealed no growth. Blood cultures revealed no growth. Sputum culture revealed no growth. White count 3.7. Hemoglobin 8.4. Platelets 198. Glucose 146. He remains on Levaquin per ID services. Heparin for DVT prophylaxis. Oral diuretics. Currently in a -1.2 L balance. The patient is seen today 03/18/2023 in follow-up on the regular medical floor. He is currently awake and alert in no acute distress. He is maintaining good O2 saturations in the 90s on room air. He denies any worsening shortness of breath cough or congestion. Denies any chest pain. He is receiving hemodialysis on Fridays. He has a permacath in place. Cardiology is considering cardiac catheterization once stable. Blood cultures revealed no growth. Sputum culture revealed no growth. Urine culture no growth. Bronchial wash cultures no growth. White count 3.5. Hemoglobin 8.3. Platelets 195. Sodium 137. Potassium 4.5. Bicarb 25. BUN 34. Creatinine 4.04. Glucose 106. He remains on heparin for DVT prophylaxis. Antibiotics in the form of Levaquin. Remains on oral diuretics. Objective - Vital Signs Vital signs: Vital Signs Temp 98.2 F 03/18/23 07:47 Pulse 89 03/18/23 07:47 Resp 16 03/18/23 07:47 BP 145/83 03/18/23 07:47 Pulse Ox 96 03/18/23 07:47 FiO2 40 03/11/23 08:05 Intake & Output 03/17/23 03/18/23 03/18/23 18:59 06:59 18:59 Intake Total 1034 Output Total 450 450 Balance 584 -450 Intake: IV 20 Invasive Line 1 20 Oral 1014 Output: Urine 450 450 Uretheral (Lay) 450 Other: Voiding Method Indwelling Catheter Indwelling Catheter # Bowel Movements 1 ABP, PAP, CO, CI - Last Documented Arterial Blood Pressure 72/72 - Exam GENERAL EXAM: Alert, pleasant 62-year-old male, on room air, comfortable in no apparent distress. HEAD: Normocephalic. EYES: Normal reaction of pupils, equal size. NOSE: Clear with pink turbinates. THROAT: No erythema or exudates. NECK: Right IJ hemodialysis catheter in place. No masses, no JVD. CHEST: No chest wall deformity. LUNGS: Equal air entry with crackles in the left lung base. CVS: S1 and S2 normal with no audible murmur, regular rhythm. ABDOMEN: No hepatosplenomegaly, normal bowel sounds, no guarding or rigidity. SPINE: No scoliosis or deformity SKIN: No rashes CENTRAL NERVOUS SYSTEM: No focal deficits, tone is normal in all 4 extremities. EXTREMITIES: Edema to the bilateral lower extremities. No clubbing, no cyanosis . Peripheral pulses are intact. - Labs CBC & Chem 7: 03/18/23 04:32 03/18/23 04:32 Labs: Abnormal Lab Results - Last 24 Hours (Table) 03/17/23 03/17/23 03/18/23 Range/Units 16:27 20:03 04:32 WBC 3.5 L (3.8-10.6) k/uL RBC 3.01 L (4.30-5.90) m/uL Hgb 8.3 L (13.0-17.5) gm/dL Hct 26.7 L (39.0-53.0) % Lymphocytes # (Manual) 0.39 L (1.0-4.8) k/uL BUN (9-20) mg/dL Creatinine (0.66-1.25) mg/dL Glucose (74-99) mg/dL POC Glucose (mg/dL) 153 H 143 H (70-110) mg/dL 03/18/23 03/18/23 03/18/23 Range/Units 04:32 06:28 11:57 WBC (3.8-10.6) k/uL RBC (4.30-5.90) m/uL Hgb (13.0-17.5) gm/dL Hct (39.0-53.0) % Lymphocytes # (Manual) (1.0-4.8) k/uL BUN 34 H (9-20) mg/dL Creatinine 4.04 H (0.66-1.25) mg/dL Glucose 106 H (74-99) mg/dL POC Glucose (mg/dL) 113 H 140 H (70-110) mg/dL Assessment and Plan Assessment: Witnessed PEA cardiac arrest with return of spontaneous circulation and an estimated down time of less than 5 minutes Acute anoxic encephalopathy, recovered Acute hypoxic respiratory failure secondary to above, recovered Acute left lower lobe pneumonia secondary to Legionella pneumonia and remains on Levaquin Severe cardiomyopathy and ejection fraction of 20-25% Cardiogenic shock, recovered Acute on chronic stage IV kidney disease, receiving hemodialysis Acute rhabdomyolysis Anemia of chronic disease Insulin-dependent diabetes Dyslipidemia Superficial vein thrombosis of the cephalic veins based on ultrasound Chronic diarrhea negative C. 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 Number of minutes spent on the visit: 20.
--- NOTE | 2023-03-18 15:12 | P.PN ---
Subjective Progress Note Date: 03/18/23 Principal diagnosis: Pnemonia CC: Cough Subjective: Mr. Clay was seen and examined. Denies any acute complaints today. No chest pain or shortness of breath. Plan of care discussed with him. Objective: Vitals: Reviewed General: No acute distress HEENT: Mucous membranes moist neck supple Cardiovascular: RRR, S1-S2 Lungs: Breath sounds equal and clear to auscultation bilaterally. No wheezing, rhonchi or rales Abdomen: Soft, nontender, nondistended Extremities: No lower extremity edema Pertinent labs and imaging reviewed Assessment and plan: 1. Septic shock secondary to Legionella pneumonia, septic shock is resolved Acute hypoxic respiratory failure secondary to #1 Oral pharyngeal candidiasis Left mucous plug status post bronchoscopy on 03/10 Continue with Levaquin. Nystatin swish and swallow for thrush. 2. Metabolic encephalopathy, improving Likely secondary to sepsis. 3. Elevated troponin likely demand ischemia HF R EF, new diagnosis Cardiology plan for cardiac cath while inpatient. Continue metoprolol. Cardiology has ordered repeat echo to assess for improvement. 4. DM 2 Blood sugars controlled. Continue sliding scale. 5. Acute kidney injury on CKD likely secondary to ATN Anemia of CKD On HD. Renally dose meds. 6. Superficial thrombophlebitis of left cephalic vein 7. Rhabdomyolysis Resolved 8. Thrombocytopenia HIT panel negative.Plt count has normalized. 9. PEA arrest Likely secondary to septic shock. ROSC achieved 10. Unspecific psych disorder Continue with Prozac and fluphenazine VTE prophylaxis with subcu heparin Objective - Vital Signs Vital signs: Vital Signs Temp 98.2 F 03/18/23 07:47 Pulse 89 03/18/23 07:47 Resp 16 03/18/23 07:47 BP 145/83 03/18/23 07:47 Pulse Ox 96 03/18/23 07:47 FiO2 40 03/11/23 08:05 Intake & Output 03/17/23 03/18/23 03/18/23 18:59 06:59 18:59 Intake Total 1034 Output Total 450 450 Balance 584 -450 Intake: IV 20 Invasive Line 1 20 Oral 1014 Output: Urine 450 450 Uretheral (Lay) 450 Other: Voiding Method Indwelling Catheter Indwelling Catheter # Bowel Movements 1 ABP, PAP, CO, CI - Last Documented Arterial Blood Pressure 72/72 - Labs CBC & Chem 7: 03/18/23 04:32 03/18/23 04:32 Labs: Abnormal Lab Results - Last 24 Hours (Table) 03/17/23 03/17/23 03/18/23 Range/Units 16:27 20:03 04:32 WBC 3.5 L (3.8-10.6) k/uL RBC 3.01 L (4.30-5.90) m/uL Hgb 8.3 L (13.0-17.5) gm/dL Hct 26.7 L (39.0-53.0) % Lymphocytes # (Manual) 0.39 L (1.0-4.8) k/uL BUN (9-20) mg/dL Creatinine (0.66-1.25) mg/dL Glucose (74-99) mg/dL POC Glucose (mg/dL) 153 H 143 H (70-110) mg/dL 03/18/23 03/18/23 03/18/23 Range/Units 04:32 06:28 11:57 WBC (3.8-10.6) k/uL RBC (4.30-5.90) m/uL Hgb (13.0-17.5) gm/dL Hct (39.0-53.0) % Lymphocytes # (Manual) (1.0-4.8) k/uL BUN 34 H (9-20) mg/dL Creatinine 4.04 H (0.66-1.25) mg/dL Glucose 106 H (74-99) mg/dL POC Glucose (mg/dL) 113 H 140 H (70-110) mg/dL
--- NOTE | 2023-03-18 15:14 | P.PN ---
Subjective Progress Note Date: 03/18/23 Follow-up for acute kidney injury. On dialysis, started on 03/01/2023. Had dialysis on Sunday, tolerated well. Next treatment tomorrow. Objective - Vital Signs Vital signs: Vital Signs Temp 98.2 F 03/18/23 07:47 Pulse 89 03/18/23 07:47 Resp 16 03/18/23 07:47 BP 145/83 03/18/23 07:47 Pulse Ox 96 03/18/23 07:47 FiO2 40 03/11/23 08:05 Intake & Output 03/17/23 03/18/23 03/18/23 18:59 06:59 18:59 Intake Total 1034 Output Total 450 450 Balance 584 -450 Intake: IV 20 Invasive Line 1 20 Oral 1014 Output: Urine 450 450 Uretheral (Lay) 450 Other: Voiding Method Indwelling Catheter Indwelling Catheter # Bowel Movements 1 ABP, PAP, CO, CI - Last Documented Arterial Blood Pressure 72/72 - Exam No acute distress S1-S2 heard Decreased breath sounds Lay catheter Edema - Labs CBC & Chem 7: 03/18/23 04:32 03/18/23 04:32 Labs: Abnormal Lab Results - Last 24 Hours (Table) 03/17/23 03/17/23 03/18/23 Range/Units 16:27 20:03 04:32 WBC 3.5 L (3.8-10.6) k/uL RBC 3.01 L (4.30-5.90) m/uL Hgb 8.3 L (13.0-17.5) gm/dL Hct 26.7 L (39.0-53.0) % Lymphocytes # (Manual) 0.39 L (1.0-4.8) k/uL BUN (9-20) mg/dL Creatinine (0.66-1.25) mg/dL Glucose (74-99) mg/dL POC Glucose (mg/dL) 153 H 143 H (70-110) mg/dL 03/18/23 03/18/23 03/18/23 Range/Units 04:32 06:28 11:57 WBC (3.8-10.6) k/uL RBC (4.30-5.90) m/uL Hgb (13.0-17.5) gm/dL Hct (39.0-53.0) % Lymphocytes # (Manual) (1.0-4.8) k/uL BUN 34 H (9-20) mg/dL Creatinine 4.04 H (0.66-1.25) mg/dL Glucose 106 H (74-99) mg/dL POC Glucose (mg/dL) 113 H 140 H (70-110) mg/dL Assessment and Plan Assessment: #1 Acute kidney injury dialysis dependent secondary to hemodynamic ATN. -Baseline creatinine around 3.1-3.4 MG per DL. #2 status post cardiopulmonary arrest #3 diabetic kidney disease stage IIIB. #4 shock on levo fed #5 volume overload #6 hypervolemic hyponatremia Plan: #1 hemodialysis MWF schedule. Currently has a PermCath. #2 next treatment on Sunday. #3 midodrine for hemodynamic support. #4 add lisinopril 10 mg by mouth daily for underlying cardiomyopathy as per cardiology
[2023-03-18] MEDS ORDERED: lisinopriL 10 MG TAB PO SCH (15:15)
[2023-03-18 17:49] LABS: Glucose,Whole Blood 133 mg/dL (70-110)
[2023-03-18 20:14] LABS: Glucose,Whole Blood 143 mg/dL (70-110)
[2023-03-18] MEDS: MELATONIN 5 MG TABLET PO SCH (22:23)
[2023-03-19 05:58] LABS: Glucose,Whole Blood 131 mg/dL (70-110)
[2023-03-19] MEDS: INSULIN ASPART (NovoLOG) 100 UNIT/ML VIAL SQ SCH ×4 (06:32→21:24)
--- NOTE | 2023-03-19 08:36 | IR ---
EXAMINATION TYPE: IR cvc insert central tunneled DATE OF EXAM: 03/13/2023 COMPARISON: NONE HISTORY: Fluoroscopy time. Fluoroscopy was provided to the referring clinician.
[2023-03-19] MEDS: NYSTATIN 100,000 UNIT/ML SUSP 500,000 UNIT/5 ML CUP PO SCH ×4 (09:00→23:02)
[2023-03-19] MEDS: SODIUM BICARBONATE TAB 650 MG TAB PO SCH ×2 (09:32→23:02)
[2023-03-19] MEDS: PANTOPRAZOLE 40 MG/10 ML VIAL IVP SCH (09:32)
[2023-03-19] MEDS: HEPARIN SODIUM,PORCINE 5,000 UNIT/ML 1 ML VIAL SQ SCH ×2 (09:32→21:33)
[2023-03-19] MEDS: allopurinoL 100 MG TAB PO SCH (09:33)
[2023-03-19] MEDS: TORSEMIDE 20 MG TAB PO SCH (09:33)
[2023-03-19] MEDS: METOPROLOL TARTRATE 50 MG TAB PO SCH ×2 (09:33→23:02)
[2023-03-19] MEDS: FLUoxetine HCL 20 MG CAP PO SCH (09:33)
[2023-03-19] MEDS: FOLIC ACID 1 MG TAB PO SCH (09:33)
--- NOTE | 2023-03-19 10:18 | P.PN ---
Subjective Progress Note Date: 03/19/23 Cardiomyopathy/cardiac arrest The patient is a 62-year-old gentleman who was admitted to the hospital after a fall and subsequently he developed cardiac arrest with PEA. Further investigation including an echo was performed and showed severe cardiomyopathy. Troponin was mildly elevated. He was in renal failure. He was anemic. In 03/12/2023 The patient was seen and evaluated. Currently he is stable. He is on Lasix drip by the nephrology service. He is on metoprolol only because his pressure has been on the low side. He still anemic. He still renal failure. The decision to be made regarding permanent hemodialysis catheter. From the Cardec standpoint of view, I would continue the current medical regimen to renal the patient need permanent dialysis or not. Definitely heart catheterization need to be done in the next few days or as an outpatient to rule out severe underlying coronary artery disease for the cardiomyopathy. Meanwhile will continue the current medical regimen. On examination he does have regular rhythm with diminished breathing sounds bilaterally and bilateral lower extremity is edema noted. 03/13/2023 [place] the patient was seen and evaluated this morning. The plan is to pursue with replacing the dialysis catheter. His creatinine has not been improving in spite of patient's making urine. Otherwise he remains stable hemodynamically. He remains in normal sinus mechanism. He does need to undergo coronary angiogram down the line to find out the etiology for cardiomyopathy. Meanwhile will continue the current medical regimen. He continues to be on Las ix IV by the nephrology service. The examination is remarkable for mild change in mental status with regular rate and rhythm and diminished breathing sounds bilaterally March [id number] The patient was seen and evaluated this morning. The creatinine has been improving. He remains in sinus mechanism. No chest pain or chest discomfort. The examination is remarkable for diminished breathing sounds bilaterally and mild chronic skin changes. His mentation has improved 03/15/2023 The patient was seen and evaluated this morning. His creatinine has been trending down. The hemoglobin remains stable. He is asymptomatic. He is maintaining normal sinus mechanism. For the cardiovascular medications he is on metoprolol at this point. He needs to be on ELROY inhibitor or ARB down the line 160 kidney function improved. He also needs to undergo coronary angiogram with the kidney function improved. Meanwhile will continue the current medical regimen. 03/16/2023 The patient was seen and evaluated this morning. He remains stable. He is asymptomatic. Currently he is having dialysis. He is on beta rhys. The examination is remarkable for regular rhythm with clear breathing sounds bilaterally and no edema in the lower extremities. 03/17/2023 The patient was seen this morning. He remains tachycardic and did have an episode of nonsustained ventricular tachycardia yesterday. His pressure remains stable. I'm going to increase the dose of metoprolol at this point and continue the rest of the current medical regimen. He continues to be on dialysis. Examination is unremarkable 03/18/2023 The patient was seen and evaluated this morning. His mentation has improved significantly. He remains hemodynamically stable. He continues to be on dialysis. I am going to repeat the echocardiogram to see if there is any improvement in the LV systolic function. If he continues to have cardiomyopathy he definitely to undergo a heart catheterization to rule out severe CAD given his multiple risk factors. Also the cardiomyopathy could be related to hypertensive heart disease closely cardiomyopathy as well as the renal failure. That plan was discussed with the family in the room today. Meanwhile I would continue the current medical regimen including the current dose of beta rhys and also start the patient on lisinopril at 2.5 mg daily if it's okay from the nephrology standpoint overview. No more episodes of nonsustained ventricular tachycardia. The examination is remarkable for regular rhythm with a systolic murmur at the right and left upper sternal border with a clear breathing sounds bilaterally and no edema in the lower extremities 03/19 Patient is seen today in follow-up. He is due for hemodialysis today on Sunday schedule. He was started on lisinopril yesterday and is continued on Lopressor and Demadex. His initial echocardiogram revealed EF of 20-25%. He is ordered for repeat echocardiogram today to evaluate cardiomyopathy. Blood pressure 146/75, heart rate in the 50s to 80s, afebrile, pulse ox 98 % on room air. This patient about cardiac catheterization he states he does not want to have that done at this time and may consider going to another facility for cardiac catheterization. Physical Examination Gen: This is a 62-year-old male resting in bed appears to be in no acute distress. HEENT: Head is atraumatic, normocephalic. Pupils equal, round. Sclerae is anicteric. LUNGS: Clear to auscultation. No wheezes or rhonchi. No intercostal retractions. HEART: Regular rate and rhythm. Systolic murmur. ABDOMEN: Soft. EXTREMITIES: No pedal edema. Dressings in place to bilateral feet. Assessment History of cardiac arrest as described above Cardiomyopathy of unknown etiology Acute renal failure requiring HD Anemia Nonsustained ventricular tachycardia Plan Continue the current medical regimen Continue small dose of lisinopril to the current medical regimen Consider optimize medical treatment for cardiomyopathy Repeat the echocardiogram to assess for improvement in the ejection fraction Consider coronary angiogram to rule out severe CAD as patient has advised to and like to wait and have this done later time or at a different facility Patient is cleared from cardiology for discharge may follow-up with Dr. Pura Bocanegra in 2 weeks. Nurse practitioner note has been reviewed, I agree with the documented findings and plan of care. Patient was seen and examined. Objective - Vital Signs Vital signs: Vital Signs Temp 97.4 F L 03/19/23 07:25 Pulse 85 03/19/23 07:25 Resp 15 03/19/23 07:25 BP 146/75 03/19/23 07:25 Pulse Ox 98 03/19/23 07:25 FiO2 40 03/11/23 08:05 Intake & Output 03/18/23 03/19/23 03/19/23 18:59 06:59 18:59 Intake Total 0 30 Output Total 350 300 Balance -350 -270 Intake: Oral 0 30 Output: Urine 350 300 Other: Voiding Method Indwelling Catheter Indwelling Catheter ABP, PAP, CO, CI - Last Documented Arterial Blood Pressure 72/72 - Labs CBC & Chem 7: 03/18/23 04:32 03/18/23 04:32 Labs: Abnormal Lab Results - Last 24 Hours (Table) 03/18/23 03/18/23 03/18/23 Range/Units 04:32 11:57 17:41 Lymphocytes # (Manual) 0.39 L (1.0-4.8) k/uL POC Glucose (mg/dL) 140 H 133 H (70-110) mg/dL 03/18/23 03/19/23 Range/Units 20:13 05:57 Lymphocytes # (Manual) (1.0-4.8) k/uL POC Glucose (mg/dL) 143 H 131 H (70-110) mg/dL
--- NOTE | 2023-03-19 10:44 | P.PN ---
Subjective Patient is seen in follow-up for acute kidney injury on chronic kidney disease. Started on hemodialysis 03/01/2023. Nonoliguric. Has permacath. Scheduled for dialysis today. No active complaints. Vital signs are stable. General: Resting in bed. HEENT: NG tube noted. LUNGS: Scattered rhonchi. HEART: Rate and Rhythm are regular. ABDOMEN: No distention. EXTREMITITES: No edema. Objective - Vital Signs Vital signs: Vital Signs Temp 97.4 F L 03/19/23 07:25 Pulse 85 03/19/23 07:25 Resp 15 03/19/23 08:00 BP 146/75 03/19/23 07:25 Pulse Ox 98 03/19/23 07:25 FiO2 40 03/11/23 08:05 Intake & Output 03/18/23 03/19/23 03/19/23 18:59 06:59 18:59 Intake Total 0 30 Output Total 350 300 Balance -350 -270 Intake: Oral 0 30 Output: Urine 350 300 Other: Voiding Method Indwelling Catheter Indwelling Catheter Indwelling Catheter ABP, PAP, CO, CI - Last Documented Arterial Blood Pressure 72/72 - Labs CBC & Chem 7: 03/18/23 04:32 03/18/23 04:32 Labs: Abnormal Lab Results - Last 24 Hours (Table) 03/18/23 03/18/23 03/18/23 Range/Units 11:57 17:41 20:13 POC Glucose (mg/dL) 140 H 133 H 143 H (70-110) mg/dL 03/19/23 Range/Units 05:57 POC Glucose (mg/dL) 131 H (70-110) mg/dL Assessment and Plan Plan: Assessment: 1. Acute kidney injury secondary to ATN secondary to cardiopulmonary arrest. Started on hemodialysis 03/01/2023. Has a permacath. Nonoliguric. 2. Cardiopulmonary arrest. 3. 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 CKD appears to have progressed with creatinine in the range of 3.1-3.4 in April and July 2022. 4. Chronic kidney disease mineral bone disease maintained on Calcitrol. Phosphorus level 5.4 dated 03/14/2023. 5. Diabetes mellitus. 6. Shock s/p Levophed. 7. Anemia of chronic kidney disease. High ferritin noted. On Aranesp. 8. Metabolic acidosis secondary to chronic kidney disease on oral bicarb. Plan: Hemodialysis today. Maintain torsemide. Add PhosLo with meals. Patient will be maintained on Sunday dialysis schedule outpatient. Monitor for renal recovery outpatient. DC Lay catheter.
[2023-03-19 11:00] LABS: Blood Urea Nitrogen 38.2 mg/dL (9.0-27.0); Calcium 8.6 mg/dL (8.7-10.3); Carbon Dioxide 25.2 mmol/L (21.6-31.8); Chloride 102 mmol/L (96-109); Glucose 134 mg/dL (70-110); Potassium 4.3 mmol/L (3.5-5.5); Sodium 141 mmol/L (135-145)
[2023-03-19 11:02] LABS: Basophils # (A) 0.06 X 10*3/uL (0.00-0.10); Basophils % (A) 1.4 %; Eosinophils # (A) 0.21 X 10*3/uL (0.04-0.35); Eosinophils % (A) 4.9 %; HCT 27.2 % (39.6-50.0); HGB 8.1 g/dL (13.0-17.0); Lymphocytes # (A) 0.76 X 10*3/uL (0.90-5.00); Lymphocytes % (A) 17.8 %; MCH 26.6 pg (27.0-32.0); MCHC 29.8 g/dL (32.0-37.0); MCV 89.2 FL (80.0-97.0); Mean Platelet Volume 10.1 FL (9.5-12.2); Monocytes % (A) 14.1 %; NRBC Per 100 WBC 0 X 10*3/uL (0.00-0.01); Neutrophils # (A) 2.61 X 10*3/uL (1.80-7.70); Neutrophils % (A) 61.1 %; Platelet Count 211 X 10*3/uL (140-440); RBC 3.05 X 10*6/uL (4.40-5.60); RDW 15.1 % (11.5-14.5); WBC 4.27 X 10*3/uL (4.50-10.00)
--- NOTE | 2023-03-19 11:57 | P.PN ---
Subjective Progress Note Date: 03/19/23 I am seeing this patient in new consultation today 03/01/2023 in the intensive care unit, after the patient had a witnessed PEA cardiac arrest while on the Observation unit. Patient is a 62-year-old white male with past medical history significant for diabetes mellitus, diabetic foot ulcers, hypertension, hyperlipidemia, iron deficiency anemia, chronic kidney disease. Patient is currently sedated and intubated on the mechanical ventilator. He was admitted yesterday morning, after being found on the floor by his father. Apparently, the patient denied hitting his head or losing consciousness. Patient does have diabetes mellitus, and his blood sugars had been running high at home. Chest x- ray on admission showed a left lower lobe infiltrate consistent with community acquired pneumonia. Patient did have a fever with a T-max of 100.7F. Apparently, after being admitted to the observation unt, the patient was noted to have low blood pressure. The patient was given 1 L normal saline bolus and 5 amps sodium bicarb. Soon after, the patient had a cardiac arrest. Presenting rhythm was PEA. Patient had a limited downtime of less than 5 minutes. He received 1 mg of epinephrine. Rapid sequence intubation was performed. The patient was then transferred to the intensive care unit. Dr. Lacy did come in and place a left subclavian central line catheter and a right wrist arterial line. Patient was also noted to be in acute renal failure. He did have a right femoral hemodialysis catheter placed earlier, and is currently undergoing emergent hemodialysis. Patient is currently in the intensive care unit, intubated to the mechanical ventilator. He is sedated on propofol which is currently infusing at 40 mcg/kg/m. He is synchronous with the mechanical ventilator. Postintubation ABG shows a pO2 greater than 400, pCO2 27, pH of 7.43, this was done on ventilator settings of assist control, respiratory rate 22, tidal volume 500, FiO2 100%, and PEEP of 5. Patient's FiO2 was dropped to 50%. Peak pressures 27. Post intubation chest x-ray shows the endotracheal tube 4 cm above the anika. Oral gastric tube could be advanced 5 cm. There is a persistent left lower lobe infiltrate. Most recent CBC from yesterday evening showed a WBC count of 7.8, hemoglobin 7.1, hematocrit 22.7, platelets 120. No obvious acute blood loss was noted. Most recent available BMP shows sodium 140, potassium 4.6, chloride 107, serum bicarb 15, BUN 107, creatinine 7.82, glucose 282. Acetone negative. LFTs not elevated. CPK 1240. Currently, 3 A sodium bicarb in D5W is infusing at 100 ML's per hour. There is also normal saline infusing at 130 ML's per hour. Patient is currently anuric. Troponins elevated at 0.457, 0.388, and 0.422 respectively. ECG shows normal sinus rhythm without any obvious acute ischemic changes. Urinalysis not concerning for UTI. Lactic acid level was elevated at 4 is down 1.6. Negative for influenza, RSV, COVID- 19. Patient was started on empiric antibiotics in the form of ceftriaxone and azithromycin. Currently afebrile. Patient's condition is currently critical, moderate in the intensive care unit. On 03/10/2023, the patient is resting comfortably. Breathing is nonlabored and the patient is on 4 L of oxygen by nasal cannula with a pulse ox of 97%. He has a IV daily for enteral feeding for nutritional support. His chest x-ray from today is showing significant volume loss in the left lung. Suspect mucus plugging as the patient has of optimal ability to do adequate pulmonary toileting. Based on that, the plan was to do a bedside bronchoscopy for therapeutic airway suctioning. . It is possible also that there may be some limited pleural effusion and left lung. The patient was echoes at 12.3, hemoglobin is 8.6, platelet count is 175, BUN is at 75 with a creatinine of 3.06. Sodium is at 133. Last hemodialysis session was yesterday. Note that the patient had a Legionella pneumonia in the left lower lobe and the patient continued to have a persistent consolidation of the left lung base. He remains on Levaquin. She remains on Eraxis. Infectious diseases on the case. He is on no pressors at this point in time. On Levemir insulin, 15 units at bedtime and 10 units in the morning. Is also on NovoLog siding scale coverage. He remains on metoprolol 25 mg 3 times a day.. Last hemodialysis session was yesterday and the patient is producing adequate amount of urine output for the time being. . On 03/11/2023, the patient is post bronchoscopy. The repeat chest x-ray was done today and the patient has ongoing consolidation of the left lung base related to residual pneumonia. Is improvement in volume status examination of the left lung. He remains on oxygen at 4 L/m nasal cannula. He continues to receive enteral feeding for nutritional support. He is still weak and having episodes of confusion. Is communicating for now. He has profound motor weakness in all 4 extremities. He remains on Levaquin. No nausea. No abd ominal pain or distention. He is producing urine output. No plans for dialysis today. He has of 87 with a creatinine of 3.97 and sodium is 135. WBC count 10.7 with a hemoglobin of 7.9. Oxygenation is further improved. The patient's current on room air oxygen with a pulse ox of 93%. He is on Levemir insulin 10 units in addition to sliding scale coverage. Heparin subcu for prophylaxis. Patient was reevaluated today on 03/12/2023, patient remains in the ICU, continues to have a significant left lower lobe consolidation. Remains on Lasix drip at 10 mg per hour, patient has excellent urine output, -3 L in the last 24 hours. Patient remains on Eraxis and on Levaquin. Ultrasound of the chest was ordered today to consider left-sided thoracentesis if there is enough fluid to drain. His BUN is 97 creatinine 4.84, his last dialysis was on 03/09 may be considered for hemodialysis catheter placement. Patient is wondering when he could go home, and I explained to them that he is not quite ready continues to have many issues to address. And he needs to BE cleared by all the consultants. Continues to have chronic wounds in both feet. Continues to be followed by many consultants. WBC count today is 7.8 hemoglobin 7.6 electrolytes are normal BUN is 97 creatinine 4.84. Ultrasound of the chest failed to show any pleural effusion in the left pleural space, hence the findings are mostly findings of strictly consolidation in the left lower lobe. Patient will reevaluated today on 03/13/23, remains in the ICU, patient remains on Lasix at 5 mg per hour, he has excellent urine output however his renal functioning seems to be getting worse. He was seen by nephrology today, and now the recommendation is to place a permacath, and possibly start dialysis on this patient. Creatinine is up to 5.99. In the meantime the patient could be considered for transfer to a 3 S. bad/monitor bed on selective. Patient is still receiving treatment for his Legionella pneumonia and sepsis. Remains on Levaquin. Chest x-ray showed significant improvement today in his left lower lobe consolidation, and again his ultrasound did not show any fluid to drain WBC count is 8 hemoglobin 7.5 electrolytes are relatively normal except for potassium of 5.4 and he had a BUN of 101 creatinine 5.99 Patient was today on 03/14/23, patient continues to feel down, refusing any treatment including oral medications, however the patient seems to be in no distress. On room air with O2 sat shows 95%, he is hemodynamically stable with blood pressure of 116/83, patient is supposed to undergo hemodialysis today, hopefully he doesn't declined hemodialysis. Patient was seen by psychiatry, and he is refusing to take his medication orally. Labs are basically unremarkable including CBC and basic metabolic profile is creatinine is 3.24 and he is supposed to get dialysis today. Reevaluated today on 03/15 patient is doing well, relatively asymptomatic, patient did undergo dialysis yesterday, being followed by cardiology and still considering cardiac catheterization on this patient after his kidney functioning improves and after hemodialysis. Today's BUN is 25 creatinine 2.19, steadily improving with hemodialysis. Chest x-ray continues to show left lower lobe atelectasis/pneumonia although clinically the patient is much better,, patient did have Legionella pneumonia treated The patient is seen today 03/16/2023 in follow-up on the selective care unit. He is currently resting comfortably in bed. Awake and alert in no acute distress. He is receiving hemodialysis. Currently in a negative balance. Bronchial wash cultures revealed no growth. White count 3.8. Hemoglobin 8.1. Platelets 231. Sodium 135. Potassium 4.3. Bicarb 26. BUN 36. Creatinine 3.72. Glucose 122. He remains on oral diuretics. Heparin for DVT prophylaxis. Antibiotics in the form of Levaquin. The patient is seen today 03/17/2023 in follow-up on the selective care unit. He is currently sitting up in bed. Awake and alert in no acute distress. Maintaining good O2 saturations in the 90s on room air. He's been afebrile. Hemodynamically stable. Finalized bronchial wash cultures revealed no growth. Urine culture revealed no growth. Blood cultures revealed no growth. Sputum culture revealed no growth. White count 3.7. Hemoglobin 8.4. Platelets 198. Glucose 146. He remains on Levaquin per ID services. Heparin for DVT prophylaxis. Oral diuretics. Currently in a -1.2 L balance. The patient is seen today 03/18/2023 in follow-up on the regular medical floor. He is currently awake and alert in no acute distress. He is maintaining good O2 saturations in the 90s on room air. He denies any worsening shortness of breath cough or congestion. Denies any chest pain. He is receiving hemodialysis on Fridays. He has a permacath in place. Cardiology is considering cardiac catheterization once stable. Blood cultures revealed no growth. Sputum culture revealed no growth. Urine culture no growth. Bronchial wash cultures no growth. White count 3.5. Hemoglobin 8.3. Platelets 195. Sodium 137. Potassium 4.5. Bicarb 25. BUN 34. Creatinine 4.04. Glucose 106. He remains on heparin for DVT prophylaxis. Antibiotics in the form of Levaquin. Remains on oral diuretics. The patient is seen today 03/19/2023 in follow-up on the regular medical floor. He is resting comfortably in bed. Awake and alert in no acute distress. He denies any worsening shortness of breath, cough or congestion. He is maintaining O2 saturations in the 90s on room air. He is continuing to require hemodialysis. Currently on a Sunday schedule. He remains on oral diuretics. Heparin for DVT prophylaxis. Indwelling catheter remains in place though minimal urine output. White count 4.2. Hemoglobin 8.1. Platelets 211. Sodium 141. Potassium 4.3. BUN 38. Creatinine 4.9. Glucose 134. Objective - Vital Signs Vital signs: Vital Signs Temp 97.4 F L 03/19/23 07:25 Pulse 85 03/19/23 07:25 Resp 15 03/19/23 08:00 BP 146/75 03/19/23 07:25 Pulse Ox 98 03/19/23 07:25 FiO2 40 03/11/23 08:05 Intake & Output 03/18/23 03/19/23 03/19/23 18:59 06:59 18:59 Intake Total 0 30 Output Total 350 300 Balance -350 -270 Intake: Oral 0 30 Output: Urine 350 300 Other: Voiding Method Indwelling Catheter Indwelling Catheter Indwelling Catheter ABP, PAP, CO, CI - Last Documented Arterial Blood Pressure 72/72 - Exam GENERAL EXAM: Alert, pleasant, awake and alert 62-year-old male, on room air, comfortable in no apparent distress. HEAD: Normocephalic. EYES: Normal reaction of pupils, equal size. NOSE: Clear with pink turbinates. THROAT: No erythema or exudates. NECK: Right IJ hemodialysis catheter in place. No masses, no JVD. CHEST: No chest wall deformity. LUNGS: Equal air entry with crackles in the left lung base. CVS: S1 and S2 normal with no audible murmur, regular rhythm. ABDOMEN: No hepatosplenomegaly, normal bowel sounds, no guarding or rigidity. SPINE: No scoliosis or deformity SKIN: No rashes CENTRAL NERVOUS SYSTEM: No focal deficits, tone is normal in all 4 extremities. EXTREMITIES: Edema to the bilateral lower extremities. No clubbing, no cyanosis. Peripheral pulses are intact. - Labs CBC & Chem 7: 03/19/23 06:31 03/19/23 06:31 Labs: Abnormal Lab Results - Last 24 Hours (Table) 03/18/23 03/18/23 03/18/23 Range/Units 11:57 17:41 20:13 WBC (4.50-10.00) X 10*3/uL RBC (4.40-5.60) X 10*6/uL Hgb (13.0-17.0) g/dL Hct (39.6-50.0) % MCH (27.0-32.0) pg MCHC (32.0-37.0) g/dL RDW (11.5-14.5) % Lymphocytes # (0.90-5.00) X 10*3/uL Anion Gap (4.00-12.00) mmol/L BUN (9.0-27.0) mg/dL Creatinine (0.6-1.5) mg/dL Est GFR (CKD-EPI) (>=60) BUN/Creatinine Ratio (12.00-20.00) Ratio Glucose (70-110) mg/dL POC Glucose (mg/dL) 140 H 133 H 143 H (70-110) mg/dL Calcium (8.7-10.3) mg/dL 03/19/23 03/19/23 03/19/23 Range/Units 05:57 06:31 06:31 WBC 4.27 L (4.50-10.00) X 10*3/uL RBC 3.05 L (4.40-5.60) X 10*6/uL Hgb 8.1 L (13.0-17.0) g/dL Hct 27.2 L (39.6-50.0) % MCH 26.6 L (27.0-32.0) pg MCHC 29.8 L (32.0-37.0) g/dL RDW 15.1 H (11.5-14.5) % Lymphocytes # 0.76 L (0.90-5.00) X 10*3/uL Anion Gap 13.80 H (4.00-12.00) mmol/L BUN 38.2 H (9.0-27.0) mg/dL Creatinine 4.9 H (0.6-1.5) mg/dL Est GFR (CKD-EPI) 13 L (>=60) BUN/Creatinine Ratio 7.80 L (12.00-20.00) Ratio Glucose 134 H (70-110) mg/dL POC Glucose (mg/dL) 131 H (70-110) mg/dL Calcium 8.6 L (8.7-10.3) mg/dL Assessment and Plan Assessment: Witnessed PEA cardiac arrest with return of spontaneous circulation and an estimated down time of less than 5 minutes Acute anoxic encephalopathy, recovered Acute hypoxic respiratory failure secondary to above, recovered Acute left lower lobe pneumonia secondary to Legionella pneumonia and remains on Levaquin Severe cardiomyopathy and ejection fraction of 20-25% Cardiogenic shock, recovered Acute on chronic stage IV kidney disease, receiving hemodialysis Acute rhabdomyolysis Anemia of chronic disease Insulin-dependent diabetes Dyslipidemia Superficial vein thrombosis of the cephalic veins based on ultrasound Chronic diarrhea negative C. difficile screening Chronic draining wounds in both feet Plan: The patient was seen and evaluated Labs and medications reviewed Currently stable and on room air Patient is declining cardiac catheterization this admission Working with PT and OT Plan will be for subacute rehab at discharge This patient was seen individually by the nurse practitioner I have personally seen and examined the patient, performed the documentation and the assessment and plan as written. Number of minutes spent on the visit: 22.
[2023-03-19 12:45] LABS: Glucose,Whole Blood 186 mg/dL (70-110)
[2023-03-19] MEDS: DARBEPOETIN ALFA 40 MCG/0.4 ML SYRINGE SQ SCH (13:19)
[2023-03-19] MEDS: CALCIUM ACETATE 667 MG TAB PO SCH ×3 (13:21→18:52)
--- NOTE | 2023-03-19 13:56 | P.PN ---
Subjective Progress Note Date: 03/19/23 62 year old M with PMH of CKD, hypertension, gout, diabetes mellitus presents to the ED after being found down. Patient is lethargic and sleepy and majority of history is provided by his father. Patient is single, lives alone, takes care of his ADLs and IADL's and normally very active. Father states he has been dealing with a cold over the past week. Symptoms include cough, rhinorrhea, malaise, diarrhea, nausea and vomiting, poor appetite. Last time seen normal was yesterday at 6:30PM when he went to bed. Found down this morning by his father, apparently tried to use the washroom last night, unable to make it to bed, laid on the floor all night. EMS was subsequently called. In the ED, he underwent extensive workup. Tmax 100.7F. HR in the 90s. BP 92/47. 92% on RA. CBC showed leukocytosis of 11.1, hemoglobin of 8.3 and platelet count 142. INR 1.2 CMP showed potassium of 5.4, bicarb 10, BUN 113, creatinine 8.47, glucose 324, total bilirubin 2. Lactic acid 2.1. CPK 1240. Troponin 0.457. Acetone negative. Influenza, RSV, COVID-19 negative. Chest x-ray reviewed by me showed large left sided PNA. EKG showed sinus rhythm with no ST elevation. CODE BLUE was called yesterday. Patient was found to be in PEA arrest. He was given multiple amps of sodium bicarb and epinephrine. Patient was intubated. ROSC was achieved and he was transferred to the ICU. Dr. Lacy, Dr. Juarez and Dr. Simon was contacted. Emergent hemodialysis access was obtained and patient was started on dialysis. Patient was intubated and transferred to the ICU. He maintained on Levophed which was eventually weaned off. Echocardiogram as done which showed ejection fraction 20-25% with moderate TR and MR and therefore cardiology was consulted. Renal ultrasound showed gallbladder wall thickening but no signs of hydrone phrosis or nephrolithiasis. His legionella urine antigen Positive and he was subsequently transitioned to Levaquin. Patient was not doing well with sedation holidays and neurology was subsequently consulted. He underwent a head CT which showed chronic microvascular ischemic changes and an EEG which showed moderate to severe background slowing. Left upper extremity venous Doppler showed no evidence of DVT but did show cephalic vein superficial thrombosis. He was successfully extubated on 03/08. Patient developed mucous plugging with white out on the left. He subsequently underwent bronchoscopy with Bronchoalveolar lavage on 03/10 showed mucous plug in the LLL and L mainstem bronchus. He was maintained on a Lasix drip, diuresing well but renal function continued to worsen. Plans are made for permacath on 03/13 and patient was started on HD. In the mean time, Psyc was consulted due to severe depression, he did not meet inpatient criteria but started on Prozac. He has some NSVT on 03/17, started on Metoprolol. Repeat Echo ordered to evaluate LV function. Per Cardiology, he will need a coronary angiogram prior to discharge. 03/19 Patient was seen and examined. CBC and BMP pending. Echocardiogram pending. He is on scheduled HD MWF. He was started on lisinopril yesterday and is continued on Lopressor and Demadex. Cardiology has cleared the patient for discharge. Discussed with Ari CAMERON, plans for SNF, needs insurance auth. Vital signs reviewed General: nontoxic, no distress, appears at stated age Cardiovascular: S1S2 reg, no murmur Lungs:Decreased BS bilateral, no rhonchi, no rales , no accessory muscle use Abdominal: soft, nontender to palpation, no guarding, no appreciable organomegaly Ext: no gross muscle atrophy, diffuse anasarca, no contractures Neuro: moving all 4 extremities independently. Psych: Flat affect Severe depression Acute kidney injury on chronic kidney disease Acute systolic cardiomyopathy with ejection fraction 20-25% Troponin elevation NSVT PEA arrest Acute hypoxic respiratory failure, extubated 03/09 Legionaires PNA with septic shock, now resolved Left mucus plug, s/p bronch and BAL 03/10 Oral pharyngeal candidiasis Acute metabolic encephalopathy Normocytic anemia Diabetes mellitus with hyperglycemia Chronic conditions: Hypertension, gout Resolved: Metabolic acidosis, Hypokalemia, Rhabdomyolysis, Thrombocytopenia Based on my assessment of this patient, this patient meets a moderate complexity level of care. Patient has an acute diagnosis of septic shock secondary to Legionaire PNA that poses a threat to life or bodily function. Currently off pressors. Extubated on 03/09. Severe depression: Denies SI/HI/AH/VH. No guns at home. Prozac 20 mg PO QD. Psychiatry on board. Acute kidney injury on chronic kidney disease: Calcitriol 0.25 mcg PO MWF. Aranesp 40 mcg SQ weekly. Midodrine 2.5 mg PO BID PRN for hypotension. Sodium bicarbonate 650 mg PO BID. Started back on HD 03/13. Nephrology on board. Acute systolic cardiomyopathy: EF 20-25% per Echocardiogram. Metoprolol 50 mg PO BID. Strict intake/outtake. Daily weights. Lisinopril 2.5 mg PO QD. Torsemide 40 mg PO QD. Cardiology has cleared the patient for discharge. Troponin elevation: Likely due to demand ischemia. Trop flat. Echocardiogram as above. Cardiology on board. NSVT: Metoprolol 50 mg PO BID. Telemetry monitoring. PEA arrest Acute hypoxic respiratory failure: Extubated 03/09. Legionaires PNA with septic shock: Septic shock now resolved. Levaquin 500 mg PO Q48H. ID on board. Left mucus plug: Status post bronch and BAL 03/10. Aggressive pulmonary toilet. Oral pharyngeal candidiasis: Completed course of Eraxis. Acute metabolic encephalopathy: CT head negative. B12, TSH, Ammonia wnl. Normocytic anemia: AOCD Transfuse if Hg < 7. Daily CBC. Diabetes mellitus with hyperglycemia: A1c 8.2. ISS. Levemir 10 units QD. Plans for discharge to SNF once insurance authorization obtained. CODE STATUS: FULL CODE. DVT Prophylaxis: Heparin SQ. GI Prophylaxis: Protonix IV Designated medical POA if patient is not able to make medical decisions for themselves: Father I have reviewed the following eap consultant notes: Pulm, ID, Psyc, Cardio, Nephro note. I have reviewed the results of the following tests: I have ordered the following tests: CBC, BMP. I have discussed the care of this patient with the following independent historian: I have independently interpreted the following test below: I have discussed the management of this patient with the following physician: Objective - Vital Signs Vital signs: Vital Signs Temp 97.4 F L 03/19/23 07:25 Pulse 85 03/19/23 07:25 Resp 15 03/19/23 07:25 BP 146/75 03/19/23 07:25 Pulse Ox 98 03/19/23 07:25 FiO2 40 03/11/23 08:05 Intake & Output 03/18/23 03/19/23 03/19/23 18:59 06:59 18:59 Intake Total 0 30 Output Total 350 300 Balance -350 -270 Intake: Oral 0 30 Output: Urine 350 300 Other: Voiding Method Indwelling Catheter Indwelling Catheter ABP, PAP, CO, CI - Last Documented Arterial Blood Pressure 72/72 - Labs CBC & Chem 7: 03/19/23 06:31 03/19/23 06:31 Labs: Abnormal Lab Results - Last 24 Hours (Table) 03/18/23 03/18/23 03/18/23 Range/Units 11:57 17:41 20:13 POC Glucose (mg/dL) 140 H 133 H 143 H (70-110) mg/dL 03/19/23 Range/Units 05:57 POC Glucose (mg/dL) 131 H (70-110) mg/dL
[2023-03-19 14:30] VITALS: BMI 24.0
[2023-03-19 17:07] LABS: Glucose,Whole Blood 128 mg/dL (70-110)
--- NOTE | 2023-03-19 19:04 | P.PN ---
Subjective Progress Note Date: 03/18/23 Principal diagnosis: Sepsis and Legionella pneumonia Patient is a 62-year-old male with a past medical history significant for diabetes mellitus hypertension renal insufficiency patient was brought into the ER concerning for weakness and did have some respiratory symptoms patient did have a fever and worsening respiratory status requiring intubation and admission to the ICU the patient urine for digital antigen came back positive evening of 03/01/2023. Patient is status post bronchoscopy and lavage for mucus plugging on 03/10/2023 On today's evaluation that is 03/18/2023, the patient denies any fever or any chills, the patient is breathing comfortably on room air without the need for supplemental oxygen, patient denies chest pain shortness of breath and no s ignificant cough or sputum production, patient denies Abdominal pain, no nausea/vomiting and denies having any diarrhea Patient white count is 3.5, creatinine is 4.04, blood and sputum cultures has b een negative, urine for Legionella antigen is positive, stool for C. diff is negative, BAL cultures negative so far Objective - Vital Signs Vital signs: Vital Signs Temp 98.2 F 03/18/23 07:47 Pulse 89 03/18/23 07:47 Resp 16 03/18/23 07:47 BP 145/83 03/18/23 07:47 Pulse Ox 96 03/18/23 07:47 FiO2 40 03/11/23 08:05 Intake & Output 03/17/23 03/18/23 03/18/23 18:59 06:59 18:59 Intake Total 1034 Output Total 450 450 Balance 584 -450 Intake: IV 20 Invasive Line 1 20 Oral 1014 Output: Urine 450 450 Uretheral (Lay) 450 Other: Voiding Method Indwelling Catheter Indwelling Catheter # Bowel Movements 1 ABP, PAP, CO, CI - Last Documented Arterial Blood Pressure 72/72 - Exam GENERAL DESCRIPTION: Middle-aged male lying in bed in no distress RESPIRATORY SYSTEM: Unlabored breathing , decreased breath sound at the base HEART: S1 S2 regular rate and rhythm , ABDOMEN: Soft , no tenderness EXTREMITIES: No edema feet - Labs CBC & Chem 7: 03/19/23 06:31 03/19/23 06:31 Labs: Abnormal Lab Results - Last 24 Hours (Table) 03/17/23 03/17/23 03/17/23 Range/Units 11:01 11:01 11:46 WBC 3.7 L (3.8-10.6) k/uL RBC 2.98 L (4.30-5.90) m/uL Hgb 8.4 L (13.0-17.5) gm/dL Hct 26.2 L (39.0-53.0) % Sodium 136 L (137-145) mmol/L BUN 27 H (9-20) mg/dL Creatinine 3.09 H (0.66-1.25) mg/dL Glucose 143 H (74-99) mg/dL POC Glucose (mg/dL) 146 H (70-110) mg/dL Alkaline Phosphatase 134 H (38-126) U/L Total Protein 6.2 L (6.3-8.2) g/dL Albumin 2.9 L (3.5-5.0) g/dL 03/17/23 03/17/23 03/18/23 Range/Units 16:27 20:03 04:32 WBC 3.5 L (3.8-10.6) k/uL RBC 3.01 L (4.30-5.90) m/uL Hgb 8.3 L (13.0-17.5) gm/dL Hct 26.7 L (39.0-53.0) % Sodium (137-145) mmol/L BUN (9-20) mg/dL Creatinine (0.66-1.25) mg/dL Glucose (74-99) mg/dL POC Glucose (mg/dL) 153 H 143 H (70-110) mg/dL Alkaline Phosphatase (38-126) U/L Total Protein (6.3-8.2) g/dL Albumin (3.5-5.0) g/dL 03/18/23 03/18/23 Range/Units 04:32 06:28 WBC (3.8-10.6) k/uL RBC (4.30-5.90) m/uL Hgb (13.0-17.5) gm/dL Hct (39.0-53.0) % Sodium (137-145) mmol/L BUN 34 H (9-20) mg/dL Creatinine 4.04 H (0.66-1.25) mg/dL Glucose 106 H (74-99) mg/dL POC Glucose (mg/dL) 113 H (70-110) mg/dL Alkaline Phosphatase (38-126) U/L Total Protein (6.3-8.2) g/dL Albumin (3.5-5.0) g/dL Assessment and Plan (1) Legionella pneumonia Current Visit: Yes Status: Acute Code(s): A48.1 - LEGIONNAIRES' DISEASE SNOMED Code(s): 253384156 (2) Sepsis Current Visit: Yes Status: Acute Code(s): A41.9 - SEPSIS, UNSPECIFIED ORGANISM SNOMED Code(s): 63931285 Plan: 1patient presented to hospital with sepsis in this patient with a fever tachycardia hypotension source is likely left lower lobe pneumonia in this patient with weakness lethargy and decreased level of responsiveness , patient has been diagnosed with Legionella pneumonia 2- leukocytosis possible oropharyngeal candidiasis, patient white count has normalized to continue with nystatin swish and swallow 3-patient with legionella Pneumonia , pt has shown clinical improvment as for as pneumonia ,Pt to continue with levaquin and monitor clinical course closely Dictation was produced using [email or web address] dictation software. please excuse any grammatical, word or spelling errors. Time with Patient: Less than 30
--- NOTE | 2023-03-19 19:05 | P.PN ---
Subjective Progress Note Date: 03/19/23 Principal diagnosis: Sepsis and Legionella pneumonia Patient is a 62-year-old male with a past medical history significant for diabetes mellitus hypertension renal insufficiency patient was brought into the ER concerning for weakness and did have some respiratory symptoms patient did have a fever and worsening respiratory status requiring intubation and admission to the ICU the patient urine for digital antigen came back positive evening of 03/01/2023. Patient is status post bronchoscopy and lavage for mucus plugging on 03/10/2023 On today's evaluation that is 03/19/2023, the patient remains to be afebrile, the patient is breathing comfortably on room air and denies any shortness of breath, the patient denies any chest pain, no significant cough or sputum p roduction, patient denies nausea/vomiting /diarrhea and no abdominal pain Patient white count is 4.27, creatinine is 4.9, blood and sputum cultures has been negative, urine for Legionella antigen positive I Objective - Vital Signs Vital signs: Vital Signs Temp 97.4 F L 03/19/23 07:25 Pulse 85 03/19/23 07:25 Resp 15 03/19/23 07:25 BP 146/75 03/19/23 07:25 Pulse Ox 98 03/19/23 07:25 FiO2 40 03/11/23 08:05 Intake & Output 03/18/23 03/19/23 03/19/23 18:59 06:59 18:59 Intake Total 0 30 Output Total 350 300 Balance -350 -270 Intake: Oral 0 30 Output: Urine 350 300 Other: Voiding Method Indwelling Catheter Indwelling Catheter ABP, PAP, CO, CI - Last Documented Arterial Blood Pressure 72/72 - Exam GENERAL DESCRIPTION: Middle-aged male lying in bed in no distress RESPIRATORY SYSTEM: Unlabored breathing , decreased breath sound at the base HEART: S1 S2 regular rate and rhythm , ABDOMEN: Soft , no tenderness EXTREMITIES: No edema feet - Labs CBC & Chem 7: 03/19/23 06:31 03/19/23 06:31 Labs: Abnormal Lab Results - Last 24 Hours (Table) 03/18/23 03/18/23 03/18/23 Range/Units 11:57 17:41 20:13 POC Glucose (mg/dL) 140 H 133 H 143 H (70-110) mg/dL 03/19/23 Range/Units 05:57 POC Glucose (mg/dL) 131 H (70-110) mg/dL Assessment and Plan (1) Legionella pneumonia Current Visit: Yes Status: Acute Code(s): A48.1 - LEGIONNAIRES' DISEASE SNOMED Code(s): 338729660 (2) Sepsis Current Visit: Yes Status: Acute Code(s): A41.9 - SEPSIS, UNSPECIFIED ORGANISM SNOMED Code(s): 06590603 Plan: 1patient presented to hospital with sepsis in this patient with a fever tachycardia hypotension source is likely left lower lobe pneumonia in this patient with weakness lethargy and decreased level of responsiveness , patient has been diagnosed with Legionella pneumonia 2- leukocytosis possible oropharyngeal candidiasis, patient white count has normalized to continue with nystatin swish and swallow 3-patient with legionella Pneumonia , patient is slowly clinically improving and we'll continue the patient on levaquin to finish a total of 3 week course of therapy Dictation was produced using [employer] dictation software. please excuse any grammatical, word or spelling errors. Time with Patient: Less than 30
[2023-03-19 20:55] LABS: Glucose,Whole Blood 96 mg/dL (70-110)
[2023-03-19] MEDS: LEVOFLOXACIN 500 MG TAB PO SCH (21:33)
[2023-03-19 21:57] LABS: Hepatitis B Surface Antigen Nonreactive; Hepatitis C IgG Antibody Nonreactive
[2023-03-19] MEDS: MELATONIN 5 MG TABLET PO SCH (23:02)
[2023-03-20 06:10] LABS: Glucose,Whole Blood 118 mg/dL (70-110)
[2023-03-20] MEDS: INSULIN ASPART (NovoLOG) 100 UNIT/ML VIAL SQ SCH ×4 (06:23→21:30)
[2023-03-20 07:24] LABS: African American GFR (CKD) 23 (>60 ml/min/1.73 sqM); Anion Gap 14 mmol/L; Blood Urea Nitrogen 23 mg/dL (9-20); Calcium 8.5 mg/dL (8.4-10.2); Carbon Dioxide 24 mmol/L (22-30); Chloride 95 mmol/L (98-107); Glucose 114 mg/dL (74-99); Non-African American GFR(CKD) 20 (>60 ml/min/1.73 sqM); Potassium 3.8 mmol/L (3.5-5.1); Sodium 133 mmol/L (137-145)
[2023-03-20] MEDS: METOPROLOL TARTRATE 50 MG TAB PO SCH ×2 (09:33→21:30)
[2023-03-20] MEDS: CALCIUM ACETATE 667 MG TAB PO SCH ×2 (09:33→18:08)
[2023-03-20] MEDS: FOLIC ACID 1 MG TAB PO SCH (09:33)
[2023-03-20] MEDS: allopurinoL 100 MG TAB PO SCH (09:33)
[2023-03-20] MEDS: FLUoxetine HCL 20 MG CAP PO SCH (09:33)
[2023-03-20] MEDS: HEPARIN SODIUM,PORCINE 5,000 UNIT/ML 1 ML VIAL SQ SCH ×2 (09:33→21:30)
[2023-03-20] MEDS: PANTOPRAZOLE 40 MG/10 ML VIAL IVP SCH (09:34)
[2023-03-20] MEDS: TORSEMIDE 20 MG TAB PO SCH ×2 (09:34→11:34)
[2023-03-20] MEDS: SODIUM BICARBONATE TAB 650 MG TAB PO SCH ×2 (09:34→21:30)
--- NOTE | 2023-03-20 11:27 | P.PN ---
Subjective Patient is seen in follow-up for acute kidney injury on chronic kidney disease. Started on hemodialysis 03/01/2023. Nonoliguric. Has permacath. No problems with dialysis yesterday. Working with physical therapy. No active complaints. Vital signs are stable. General: Resting in bed. HEENT: NG tube noted. LUNGS: Scattered rhonchi. HEART: Rate and Rhythm are regular. ABDOMEN: No distention. EXTREMITITES: No edema. Objective - Vital Signs Vital signs: Vital Signs Temp 98.3 F 03/20/23 07:41 Pulse 83 03/20/23 07:41 Resp 16 03/20/23 08:00 BP 102/65 03/20/23 07:41 Pulse Ox 97 03/20/23 07:41 FiO2 40 03/11/23 08:05 Intake & Output 03/19/23 03/20/23 03/20/23 18:59 06:59 18:59 Intake Total 0 400 Output Total 250 2400 Balance -250 -2000 Weight 69.5 kg Intake: Oral 0 Hemodialysis 400 Output: Urine 250 0 Hemodialysis 2400 Other: Voiding Method Indwelling Catheter Indwelling Catheter ABP, PAP, CO, CI - Last Documented Arterial Blood Pressure 72/72 - Labs CBC & Chem 7: 03/19/23 06:31 03/20/23 06:22 Labs: Abnormal Lab Results - Last 24 Hours (Table) 03/19/23 03/19/23 03/20/23 Range/Units 12:43 17:05 06:09 Sodium (137-145) mmol/L Chloride (98-107) mmol/L BUN (9-20) mg/dL Creatinine (0.66-1.25) mg/dL Glucose (74-99) mg/dL POC Glucose (mg/dL) 186 H 128 H 118 H (70-110) mg/dL 03/20/23 Range/Units 06:22 Sodium 133 L (137-145) mmol/L Chloride 95 L (98-107) mmol/L BUN 23 H (9-20) mg/dL Creatinine 3.14 H (0.66-1.25) mg/dL Glucose 114 H (74-99) mg/dL POC Glucose (mg/dL) (70-110) mg/dL Assessment and Plan Plan: Assessment: 1. Acute kidney injury secondary to ATN secondary to cardiopulmonary arrest. Started on hemodialysis 03/01/2023. Has a permacath. Nonoliguric. 2. Cardiopulmonary arrest. 3. 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 CKD appears to have progressed with creatinine in the range of 3.1-3.4 in April and July 2022. 4. Chronic kidney disease mineral bone disease maintained on Calcitrol. Phosphorus level 5.4 dated 03/14/2023. On PhosLo. 5. Diabetes mellitus. 6. Shock s/p Levophed. 7. Anemia of chronic kidney disease. High ferritin noted. On Aranesp. 8. Metabolic acidosis secondary to chronic kidney disease on oral bicarb. Plan: Hemodialysis tomorrow. Maintain torsemide. Patient will be maintained on Sunday dialysis schedule outpatient. Monitor for renal recovery outpatient. Lay catheter removed. Monitor bladder scans to make sure no urinary retention.
--- NOTE | 2023-03-20 11:36 | P.PN ---
Subjective Progress Note Date: 03/20/23 I am seeing this patient in new consultation today 03/01/2023 in the intensive care unit, after the patient had a witnessed PEA cardiac arrest while on the Observation unit. Patient is a 62-year-old white male with past medical history significant for diabetes mellitus, diabetic foot ulcers, hypertension, hyperlipidemia, iron deficiency anemia, chronic kidney disease. Patient is currently sedated and intubated on the mechanical ventilator. He was admitted yesterday morning, after being found on the floor by his father. Apparently, the patient denied hitting his head or losing consciousness. Patient does have diabetes mellitus, and his blood sugars had been running high at home. Chest x- ray on admission showed a left lower lobe infiltrate consistent with community acquired pneumonia. Patient did have a fever with a T-max of 100.7F. Apparently, after being admitted to the observation unt, the patient was noted to have low blood pressure. The patient was given 1 L normal saline bolus and 5 amps sodium bicarb. Soon after, the patient had a cardiac arrest. Presenting rhythm was PEA. Patient had a limited downtime of less than 5 minutes. He received 1 mg of epinephrine. Rapid sequence intubation was performed. The patient was then transferred to the intensive care unit. Dr. Lacy did come in and place a left subclavian central line catheter and a right wrist arterial line. Patient was also noted to be in acute renal failure. He did have a right femoral hemodialysis catheter placed earlier, and is currently undergoing emergent hemodialysis. Patient is currently in the intensive care unit, intubated to the mechanical ventilator. He is sedated on propofol which is currently infusing at 40 mcg/kg/m. He is synchronous with the mechanical ventilator. Postintubation ABG shows a pO2 greater than 400, pCO2 27, pH of 7.43, this was done on ventilator settings of assist control, respiratory rate 22, tidal volume 500, FiO2 100%, and PEEP of 5. Patient's FiO2 was dropped to 50%. Peak pressures 27. Post intubation chest x-ray shows the endotracheal tube 4 cm above the anika. Oral gastric tube could be advanced 5 cm. There is a persistent left lower lobe infiltrate. Most recent CBC from yesterday evening showed a WBC count of 7.8, hemoglobin 7.1, hematocrit 22.7, platelets 120. No obvious acute blood loss was noted. Most recent available BMP shows sodium 140, potassium 4.6, chloride 107, serum bicarb 15, BUN 107, creatinine 7.82, glucose 282. Acetone negative. LFTs not elevated. CPK 1240. Currently, 3 A sodium bicarb in D5W is infusing at 100 ML's per hour. There is also normal saline infusing at 130 ML's per hour. Patient is currently anuric. Troponins elevated at 0.457, 0.388, and 0.422 respectively. ECG shows normal sinus rhythm without any obvious acute ischemic changes. Urinalysis not concerning for UTI. Lactic acid level was elevated at 4 is down 1.6. Negative for influenza, RSV, COVID- 19. Patient was started on empiric antibiotics in the form of ceftriaxone and azithromycin. Currently afebrile. Patient's condition is currently critical, moderate in the intensive care unit. On 03/10/2023, the patient is resting comfortably. Breathing is nonlabored and the patient is on 4 L of oxygen by nasal cannula with a pulse ox of 97%. He has a IV daily for enteral feeding for nutritional support. His chest x-ray from today is showing significant volume loss in the left lung. Suspect mucus plugging as the patient has of optimal ability to do adequate pulmonary toileting. Based on that, the plan was to do a bedside bronchoscopy for therapeutic airway suctioning. . It is possible also that there may be some limited pleural effusion and left lung. The patient was echoes at 12.3, hemoglobin is 8.6, platelet count is 175, BUN is at 75 with a creatinine of 3.06. Sodium is at 133. Last hemodialysis session was yesterday. Note that the patient had a Legionella pneumonia in the left lower lobe and the patient continued to have a persistent consolidation of the left lung base. He remains on Levaquin. She remains on Eraxis. Infectious diseases on the case. He is on no pressors at this point in time. On Levemir insulin, 15 units at bedtime and 10 units in the morning. Is also on NovoLog siding scale coverage. He remains on metoprolol 25 mg 3 times a day.. Last hemodialysis session was yesterday and the patient is producing adequate amount of urine output for the time being. . On 03/11/2023, the patient is post bronchoscopy. The repeat chest x-ray was done today and the patient has ongoing consolidation of the left lung base related to residual pneumonia. Is improvement in volume status examination of the left lung. He remains on oxygen at 4 L/m nasal cannula. He continues to receive enteral feeding for nutritional support. He is still weak and having episodes of confusion. Is communicating for now. He has profound motor weakness in all 4 extremities. He remains on Levaquin. No nausea. No abd ominal pain or distention. He is producing urine output. No plans for dialysis today. He has of 87 with a creatinine of 3.97 and sodium is 135. WBC count 10.7 with a hemoglobin of 7.9. Oxygenation is further improved. The patient's current on room air oxygen with a pulse ox of 93%. He is on Levemir insulin 10 units in addition to sliding scale coverage. Heparin subcu for prophylaxis. Patient was reevaluated today on 03/12/2023, patient remains in the ICU, continues to have a significant left lower lobe consolidation. Remains on Lasix drip at 10 mg per hour, patient has excellent urine output, -3 L in the last 24 hours. Patient remains on Eraxis and on Levaquin. Ultrasound of the chest was ordered today to consider left-sided thoracentesis if there is enough fluid to drain. His BUN is 97 creatinine 4.84, his last dialysis was on 03/09 may be considered for hemodialysis catheter placement. Patient is wondering when he could go home, and I explained to them that he is not quite ready continues to have many issues to address. And he needs to BE cleared by all the consultants. Continues to have chronic wounds in both feet. Continues to be followed by many consultants. WBC count today is 7.8 hemoglobin 7.6 electrolytes are normal BUN is 97 creatinine 4.84. Ultrasound of the chest failed to show any pleural effusion in the left pleural space, hence the findings are mostly findings of strictly consolidation in the left lower lobe. Patient will reevaluated today on 03/13/23, remains in the ICU, patient remains on Lasix at 5 mg per hour, he has excellent urine output however his renal functioning seems to be getting worse. He was seen by nephrology today, and now the recommendation is to place a permacath, and possibly start dialysis on this patient. Creatinine is up to 5.99. In the meantime the patient could be considered for transfer to a 3 S. bad/monitor bed on selective. Patient is still receiving treatment for his Legionella pneumonia and sepsis. Remains on Levaquin. Chest x-ray showed significant improvement today in his left lower lobe consolidation, and again his ultrasound did not show any fluid to drain WBC count is 8 hemoglobin 7.5 electrolytes are relatively normal except for potassium of 5.4 and he had a BUN of 101 creatinine 5.99 Patient was today on 03/14/23, patient continues to feel down, refusing any treatment including oral medications, however the patient seems to be in no distress. On room air with O2 sat shows 95%, he is hemodynamically stable with blood pressure of 116/83, patient is supposed to undergo hemodialysis today, hopefully he doesn't declined hemodialysis. Patient was seen by psychiatry, and he is refusing to take his medication orally. Labs are basically unremarkable including CBC and basic metabolic profile is creatinine is 3.24 and he is supposed to get dialysis today. Reevaluated today on 03/15 patient is doing well, relatively asymptomatic, patient did undergo dialysis yesterday, being followed by cardiology and still considering cardiac catheterization on this patient after his kidney functioning improves and after hemodialysis. Today's BUN is 25 creatinine 2.19, steadily improving with hemodialysis. Chest x-ray continues to show left lower lobe atelectasis/pneumonia although clinically the patient is much better,, patient did have Legionella pneumonia treated The patient is seen today 03/16/2023 in follow-up on the selective care unit. He is currently resting comfortably in bed. Awake and alert in no acute distress. He is receiving hemodialysis. Currently in a negative balance. Bronchial wash cultures revealed no growth. White count 3.8. Hemoglobin 8.1. Platelets 231. Sodium 135. Potassium 4.3. Bicarb 26. BUN 36. Creatinine 3.72. Glucose 122. He remains on oral diuretics. Heparin for DVT prophylaxis. Antibiotics in the form of Levaquin. The patient is seen today 03/17/2023 in follow-up on the selective care unit. He is currently sitting up in bed. Awake and alert in no acute distress. Maintaining good O2 saturations in the 90s on room air. He's been afebrile. Hemodynamically stable. Finalized bronchial wash cultures revealed no growth. Urine culture revealed no growth. Blood cultures revealed no growth. Sputum culture revealed no growth. White count 3.7. Hemoglobin 8.4. Platelets 198. Glucose 146. He remains on Levaquin per ID services. Heparin for DVT prophylaxis. Oral diuretics. Currently in a -1.2 L balance. The patient is seen today 03/18/2023 in follow-up on the regular medical floor. He is currently awake and alert in no acute distress. He is maintaining good O2 saturations in the 90s on room air. He denies any worsening shortness of breath cough or congestion. Denies any chest pain. He is receiving hemodialysis on Fridays. He has a permacath in place. Cardiology is considering cardiac catheterization once stable. Blood cultures revealed no growth. Sputum culture revealed no growth. Urine culture no growth. Bronchial wash cultures no growth. White count 3.5. Hemoglobin 8.3. Platelets 195. Sodium 137. Potassium 4.5. Bicarb 25. BUN 34. Creatinine 4.04. Glucose 106. He remains on heparin for DVT prophylaxis. Antibiotics in the form of Levaquin. Remains on oral diuretics. The patient is seen today 03/19/2023 in follow-up on the regular medical floor. He is resting comfortably in bed. Awake and alert in no acute distress. He denies any worsening shortness of breath, cough or congestion. He is maintaining O2 saturations in the 90s on room air. He is continuing to require hemodialysis. Currently on a Sunday schedule. He remains on oral diuretics. Heparin for DVT prophylaxis. Indwelling catheter remains in place though minimal urine output. White count 4.2. Hemoglobin 8.1. Platelets 211. Sodium 141. Potassium 4.3. BUN 38. Creatinine 4.9. Glucose 134. The patient is seen today 03/20/2023 in follow-up on the regular medical floor. He is awake and alert in no acute distress. Maintaining good O2 saturations in the 90s on room air. He is resting comfortably in bed. He denies any worsening shortness of breath, cough or congestion. No chest pain. He tolerated hemodialysis well yesterday. His Lay catheter has been removed. He is maintained on Demadex. Heparin for DVT prophylaxis. Levaquin every 48 hours. Bronchial wash cultures revealed no growth. Urine culture had revealed no growth. Sodium 133. Potassium 3.8. Bicarb 24. BUN 23. Creatinine 3.14. Glucose 114. Hepatitis screen was negative. Objective - Vital Signs Vital signs: Vital Signs Temp 98.3 F 03/20/23 07:41 Pulse 83 03/20/23 07:41 Resp 16 03/20/23 08:00 BP 102/65 03/20/23 07:41 Pulse Ox 97 03/20/23 07:41 FiO2 40 03/11/23 08:05 Intake & Output 03/19/23 03/20/23 03/20/23 18:59 06:59 18:59 Intake Total 0 400 Output Total 250 2400 Balance -250 -1999 Weight 69.5 kg Intake: Oral 0 Hemodialysis 400 Output: Urine 250 0 Hemodialysis 2400 Other: Voiding Method Indwelling Catheter Indwelling Catheter ABP, PAP, CO, CI - Last Documented Arterial Blood Pressure 72/72 - Exam GENERAL EXAM: Awake and alert 62-year-old male, on room air, resting in bed, comfortable in no apparent distress. HEAD: Normocephalic. EYES: Normal reaction of pupils, equal size. NOSE: Clear with pink turbinates. THROAT: No erythema or exudates. NECK: Right IJ hemodialysis catheter in place. No masses, no JVD. CHEST: No chest wall deformity. LUNGS: Equal air entry with crackles in the left lung base. CVS: S1 and S2 normal with no audible murmur, regular rhythm. ABDOMEN: No hepatosplenomegaly, normal bowel sounds, no guarding or rigidity. SPINE: No scoliosis or deformity SKIN: No rashes CENTRAL NERVOUS SYSTEM: No focal deficits, tone is normal in all 4 extremities. EXTREMITIES: Edema to the bilateral lower extremities. No clubbing, no cyanosis. Peripheral pulses are intact. - Labs CBC & Chem 7: 03/19/23 06:31 03/20/23 06:22 Labs: Abnormal Lab Results - Last 24 Hours (Table) 03/19/23 03/19/23 03/20/23 Range/Units 12:43 17:05 06:09 Sodium (137-145) mmol/L Chloride (98-107) mmol/L BUN (9-20) mg/dL Creatinine (0.66-1.25) mg/dL Glucose (74-99) mg/dL POC Glucose (mg/dL) 186 H 128 H 118 H (70-110) mg/dL 03/20/23 Range/Units 06:22 Sodium 133 L (137-145) mmol/L Chloride 95 L (98-107) mmol/L BUN 23 H (9-20) mg/dL Creatinine 3.14 H (0.66-1.25) mg/dL Glucose 114 H (74-99) mg/dL POC Glucose (mg/dL) (70-110) mg/dL Assessment and Plan Assessment: Witnessed PEA cardiac arrest with return of spontaneous circulation and an estimated down time of less than 5 minutes Acute anoxic encephalopathy, recovered Acute hypoxic respiratory failure secondary to above, recovered Acute left lower lobe pneumonia secondary to Legionella pneumonia and remains on Levaquin Severe cardiomyopathy and ejection fraction of 20-25% Cardiogenic shock, recovered Acute on chronic stage IV kidney disease, receiving hemodialysis Acute rhabdomyolysis Anemia of chronic disease Insulin-dependent diabetes Dyslipidemia Superficial vein thrombosis of the cephalic veins based on ultrasound Chronic diarrhea negative C. 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 Number of minutes spent on the visit: 20.
[2023-03-20 11:50] LABS: Glucose,Whole Blood 134 mg/dL (70-110)
--- NOTE | 2023-03-20 12:30 | CA ---
Transthoracic Echo Report Name: Franky Clay Age: 62 Gender: M : 1960 Exam Date: 03/19/2023 14:51 Exam Location: [place] Echo Ht (in): 67 Wt (lb): 153 Ordering Physician: Thony Bennett MD ([id number]) Attending/Referring Phys: [employer] Chloe Birch [facility] Procedure CPT: Indications: ejection fraction Cardiac Hx: Technical Quality: Fair Contrast 1: Total Dose (mL): Contrast 2: Total Dose (mL): MEASUREMENTS (Male / Female) Normal Values 2D ECHO LV Diastolic Diameter PLAX 6.0 cm 4.2 - 5.9 / 3.9 - 5.3 cm LV Systolic Diameter PLAX 4.9 cm IVS Diastolic Thickness 1.3 cm 0.6 - 1.0 / 0.6 - 0.9 cm LVPW Diastolic Thickness 1.1 cm 0.6 - 1.0 / 0.6 - 0.9 cm LV Relative Wall Thickness 0.4 LV Diastolic Volume MOD BP 138.8 cm??? 67 - 155 / 56 - 104 cm??? LV Systolic Volume MOD BP 108.5 cm??? 22 - 58 / 19 - 49 cm??? LV Ejection Fraction MOD BP 21.8 % >= 55 % LV Cardiac Index MOD BP 1217.0 cm???/min???m??? LV Diastolic Volume MOD 4C 123.1 cm??? LV Systolic Volume MOD 4C 100.4 cm??? LV Ejection Fraction MOD 4C 18.5 % LV Cardiac Index MOD 4C 913.3 cm???/min???m??? LV Diastolic Length 4C 8.2 cm LV Systolic Length 4C 7.6 cm LV Diastolic Volume MOD 2C 137.8 cm??? LV Systolic Volume MOD 2C 109.3 cm??? LV Ejection Fraction MOD 2C 20.7 % LV Cardiac Index MOD 2C 1143.1 cm???/min???m??? LV Diastolic Length 2C 9.3 cm LV Systolic Length 2C 8.3 cm FINDINGS Left Ventricle Mildly increased septal wall thickness. Severely increased left ventricular systolic volume. Severely decreased left ventricular ejection fraction. Left ventricular ejection fraction is estimated at 20-25%. Hypokinetic inferior wall. [place] hypokinetic. Hypokinetic inferolateral wall. Right Ventricle Right Atrium Left Atrium Mitral Valve Aortic Valve Tricuspid Valve Pulmonic Valve Pericardium Aorta CONCLUSIONS Limited for EF. Severe LV systolic dysfunction with an ejection fraction of 20-25% Previewed by: Dr. Enmanuel Bocanegra MD (Electronically Signed) Final Date: 20 March 2023 12:30
[2023-03-20] MEDS: NYSTATIN 100,000 UNIT/ML SUSP 500,000 UNIT/5 ML CUP PO SCH ×4 (13:13→23:30)
--- NOTE | 2023-03-20 14:10 | P.PN ---
Subjective Progress Note Date: 03/20/23 62 year old M with PMH of CKD, hypertension, gout, diabetes mellitus presents to the ED after being found down. Patient is lethargic and sleepy and majority of history is provided by his father. Patient is single, lives alone, takes care of his ADLs and IADL's and normally very active. Father states he has been dealing with a cold over the past week. Symptoms include cough, rhinorrhea, malaise, diarrhea, nausea and vomiting, poor appetite. Last time seen normal was yesterday at 6:30PM when he went to bed. Found down this morning by his father, apparently tried to use the washroom last night, unable to make it to bed, laid on the floor all night. EMS was subsequently called. In the ED, he underwent extensive workup. Tmax 100.7F. HR in the 90s. BP 92/47. 92% on RA. CBC showed leukocytosis of 11.1, hemoglobin of 8.3 and platelet count 142. INR 1.2 CMP showed potassium of 5.4, bicarb 10, BUN 113, creatinine 8.47, glucose 324, total bilirubin 2. Lactic acid 2.1. CPK 1240. Troponin 0.457. Acetone negative. Influenza, RSV, COVID-19 negative. Chest x-ray reviewed by me showed large left sided PNA. EKG showed sinus rhythm with no ST elevation. CODE BLUE was called yesterday. Patient was found to be in PEA arrest. He was given multiple amps of sodium bicarb and epinephrine. Patient was intubated. ROSC was achieved and he was transferred to the ICU. Dr. Lacy, Dr. Juarez and Dr. Simon was contacted. Emergent hemodialysis access was obtained and patient was started on dialysis. Patient was intubated and transferred to the ICU. He maintained on Levophed which was eventually weaned off. Echocardiogram as done which showed ejection fraction 20-25% with moderate TR and MR and therefore cardiology was consulted. Renal ultrasound showed gallbladder wall thickening but no signs of hydrone phrosis or nephrolithiasis. His legionella urine antigen Positive and he was subsequently transitioned to Levaquin. Patient was not doing well with sedation holidays and neurology was subsequently consulted. He underwent a head CT which showed chronic microvascular ischemic changes and an EEG which showed moderate to severe background slowing. Left upper extremity venous Doppler showed no evidence of DVT but did show cephalic vein superficial thrombosis. He was successfully extubated on 03/08. Patient developed mucous plugging with white out on the left. He subsequently underwent bronchoscopy with Bronchoalveolar lavage on 03/10 showed mucous plug in the LLL and L mainstem bronchus. He was maintained on a Lasix drip, diuresing well but renal function continued to worsen. Plans are made for permacath on 03/13 and patient was started on HD. In the mean time, Psyc was consulted due to severe depression, he did not meet inpatient criteria but started on Prozac. He has some NSVT on 03/17, started on Metoprolol. Repeat Echo ordered to evaluate LV function. Per Cardiology, he will need a coronary angiogram prior to discharge. 03/19 Patient was seen and examined. CBC and BMP pending. Echocardiogram pending. He is on scheduled HD MWF. He was started on lisinopril yesterday and is continued on Lopressor and Demadex. Cardiology has cleared the patient for discharge. Discussed with Ari CAMERON, plans for SNF, needs insurance auth. 03/20 Patient was seen and examined. Bowel movement this morning. Echo shows EF 20-25% with hypokinetic wall motion. BMP Na 133, Cl 95, BUN 23, Cr 3.14, glu 114. Patient is refusing cardiac cath. Plans for SNF, needs insurance auth. Vital signs reviewed General: nontoxic, no distress, appears at stated age Cardiovascular: S1S2 reg, no murmur Lungs:Decreased BS bilateral, no rhonchi, no rales , no accessory muscle use Abdominal: soft, nontender to palpation, no guarding, no appreciable organomegaly Ext: no gross muscle atrophy, diffuse anasarca, no contractures Neuro: moving all 4 extremities independently. Psych: Flat affect Severe depression Acute kidney injury on chronic kidney disease Acute systolic cardiomyopathy with ejection fraction 20-25% Troponin elevation NSVT PEA arrest Acute hypoxic respiratory failure, extubated 03/09 Legionaires PNA with septic shock, now resolved Left mucus plug, s/p bronch and BAL 03/10 Oral pharyngeal candidiasis Acute metabolic encephalopathy Normocytic anemia Diabetes mellitus with hyperglycemia Chronic conditions: Hypertension, gout Resolved: Metabolic acidosis, Hypokalemia, Rhabdomyolysis, Thrombocytopenia Based on my assessment of this patient, this patient meets a moderate complexity level of care. Patient has an acute diagnosis of septic shock secondary to Legionaire PNA that poses a threat to life or bodily function. Currently off pressors. Extubated on 03/09. Severe depression: Denies SI/HI/AH/VH. No guns at home. Prozac 20 mg PO QD. Psychiatry on board. Acute kidney injury on chronic kidney disease: Calcitriol 0.25 mcg PO MWF. Aranesp 40 mcg SQ weekly. Midodrine 2.5 mg PO BID PRN for hypotension. Sodium bicarbonate 650 mg PO BID. Started back on HD 03/13. Nephrology on board. Acute systolic cardiomyopathy: EF 20-25% per Echocardiogram. Metoprolol 50 mg PO BID. Strict intake/outtake. Daily weights. Lisinopril 2.5 mg PO QD. Torsemide 40 mg PO QD. Cardiology has cleared the patient for discharge. Troponin elevation: Likely due to demand ischemia. Trop flat. Echocardiogram as above. Cardiology on board. NSVT: Metoprolol 50 mg PO BID. Telemetry monitoring. PEA arrest Acute hypoxic respiratory failure: Extubated 03/09. Legionaires PNA with septic shock: Septic shock now resolved. Levaquin 500 mg PO Q48H. ID on board. Left mucus plug: Status post bronch and BAL 03/10. Aggressive pulmonary toilet. Oral pharyngeal candidiasis: Completed course of Eraxis. Acute metabolic encephalopathy: CT head negative. B12, TSH, Ammonia wnl. Normocytic anemia: AOCD Transfuse if Hg < 7. Daily CBC. Diabetes mellitus with hyperglycemia: A1c 8.2. ISS. Levemir 10 units QD. Plans for discharge to SNF once insurance authorization obtained. CODE STATUS: FULL CODE. DVT Prophylaxis: Heparin SQ. GI Prophylaxis: Protonix IV Designated medical POA if patient is not able to make medical decisions for themselves: Father I have reviewed the following jewelry consultant notes: Pulm, Nephro note. I have reviewed the results of the following tests: Echo, BMP. I have ordered the following tests: BMP. I have discussed the care of this patient with the following independent historian: I have independently interpreted the following test below: I have discussed the management of this patient with the following physician: Objective - Vital Signs Vital signs: Vital Signs Temp 98.3 F 03/20/23 07:41 Pulse 83 03/20/23 07:41 Resp 16 03/20/23 08:00 BP 102/65 03/20/23 07:41 Pulse Ox 97 03/20/23 07:41 FiO2 40 03/11/23 08:05 Intake & Output 03/19/23 03/20/23 03/20/23 18:59 06:59 18:59 Intake Total 0 400 Output Total 250 2400 Balance -250 -2000 Weight 69.5 kg Intake: Oral 0 Hemodialysis 400 Output: Urine 250 0 Hemodialysis 2400 Other: Voiding Method Indwelling Catheter Indwelling Catheter ABP, PAP, CO, CI - Last Documented Arterial Blood Pressure 72/72 - Labs CBC & Chem 7: 03/19/23 06:31 03/20/23 06:22 Labs: Abnormal Lab Results - Last 24 Hours (Table) 03/19/23 03/20/23 03/20/23 Range/Units 17:05 06:09 06:22 Sodium 133 L (137-145) mmol/L Chloride 95 L (98-107) mmol/L BUN 23 H (9-20) mg/dL Creatinine 3.14 H (0.66-1.25) mg/dL Glucose 114 H (74-99) mg/dL POC Glucose (mg/dL) 128 H 118 H (70-110) mg/dL 03/20/23 Range/Units 11:50 Sodium (137-145) mmol/L Chloride (98-107) mmol/L BUN (9-20) mg/dL Creatinine (0.66-1.25) mg/dL Glucose (74-99) mg/dL POC Glucose (mg/dL) 134 H (70-110) mg/dL
--- NOTE | 2023-03-20 16:44 | P.PN ---
Subjective Progress Note Date: 03/20/23 Principal diagnosis: Sepsis and Legionella pneumonia Patient is a 62-year-old male with a past medical history significant for diabetes mellitus hypertension renal insufficiency patient was brought into the ER concerning for weakness and did have some respiratory symptoms patient did have a fever and worsening respiratory status requiring intubation and admission to the ICU the patient urine for digital antigen came back positive evening of 03/01/2023. Patient is status post bronchoscopy and lavage for mucus plugging on 03/10/2023 On today's evaluation that is 03/20/2023, the patient is afebrile, patient is lethargic today and unable to provide any history, patient is breathing comfortably on room air, no vomiting no diarrhea or any other changes reported by the nursing staff Patient white count is 4.27 as of 03/19/2023, creatinine is 3.14, blood and sputum cultures has been negative, urine for Legionella antigen positive I Objective - Vital Signs Vital signs: Vital Signs Temp 98.3 F 03/20/23 07:41 Pulse 83 03/20/23 07:41 Resp 16 03/20/23 08:00 BP 102/65 03/20/23 07:41 Pulse Ox 97 03/20/23 07:41 FiO2 40 03/11/23 08:05 Intake & Output 03/19/23 03/20/23 03/20/23 18:59 06:59 18:59 Intake Total 0 400 Output Total 250 2400 Balance -250 -2000 Weight 69.5 kg Intake: Oral 0 Hemodialysis 400 Output: Urine 250 0 Hemodialysis 2400 Other: Voiding Method Indwelling Catheter Indwelling Catheter ABP, PAP, CO, CI - Last Documented Arterial Blood Pressure 72/72 - Exam GENERAL DESCRIPTION: Middle-aged male lying in bed in no distress RESPIRATORY SYSTEM: Unlabored breathing , decreased breath sound at the base HEART: S1 S2 regular rate and rhythm , ABDOMEN: Soft , no tenderness EXTREMITIES: No edema feet - Labs CBC & Chem 7: 03/19/23 06:31 03/20/23 06:22 Labs: Abnormal Lab Results - Last 24 Hours (Table) 03/19/23 03/19/23 03/20/23 Range/Units 12:43 17:05 06:09 Sodium (137-145) mmol/L Chloride (98-107) mmol/L BUN (9-20) mg/dL Creatinine (0.66-1.25) mg/dL Glucose (74-99) mg/dL POC Glucose (mg/dL) 186 H 128 H 118 H (70-110) mg/dL 03/20/23 Range/Units 06:22 Sodium 133 L (137-145) mmol/L Chloride 95 L (98-107) mmol/L BUN 23 H (9-20) mg/dL Creatinine 3.14 H (0.66-1.25) mg/dL Glucose 114 H (74-99) mg/dL POC Glucose (mg/dL) (70-110) mg/dL Assessment and Plan (1) Legionella pneumonia Current Visit: Yes Status: Acute Code(s): A48.1 - LEGIONNAIRES' DISEASE SNOMED Code(s): 342379404 (2) Sepsis Current Visit: Yes Status: Acute Code(s): A41.9 - SEPSIS, UNSPECIFIED ORGANISM SNOMED Code(s): 66552876 Plan: 1patient presented to hospital with sepsis in this patient with a fever tachycardia hypotension source is likely left lower lobe pneumonia in this patient with weakness lethargy and decreased level of responsiveness , patient has been diagnosed with Legionella pneumonia 2- leukocytosis possible oropharyngeal candidiasis, patient white count has normalized to continue with nystatin swish and swallow 3-patient with legionella Pneumonia , patient did have improvement as well as his respiratory status is concerned and will continue levaquin to finish a total of 3 week course of therapy Dictation was produced using [employer] dictation software. please excuse any grammatical, word or spelling errors. Time with Patient: Less than 30
[2023-03-20 17:32] LABS: Glucose,Whole Blood 144 mg/dL (70-110)
[2023-03-20] MEDS ORDERED: SODIUM CHLORIDE 0.9% 1,000 ML IV SCH (18:45)
[2023-03-20 21:30] LABS: Glucose,Whole Blood 155 mg/dL (70-110)
[2023-03-20] MEDS: MELATONIN 5 MG TABLET PO SCH (21:30)
[2023-03-21 03:22] VITALS: RESP 15
[2023-03-21 05:34] LABS: Glucose,Whole Blood 166 mg/dL (70-110)
[2023-03-21] MEDS: INSULIN ASPART (NovoLOG) 100 UNIT/ML VIAL SQ SCH ×3 (06:23→18:19)
[2023-03-21] MEDS: CALCIUM ACETATE 667 MG TAB PO SCH ×3 (06:23→18:19)
[2023-03-21 06:56] LABS: African American GFR (CKD) 23 (>60 ml/min/1.73 sqM); Anion Gap 8 mmol/L; Blood Urea Nitrogen 22 mg/dL (9-20); Calcium 8.6 mg/dL (8.4-10.2); Carbon Dioxide 27 mmol/L (22-30); Chloride 100 mmol/L (98-107); Glucose 132 mg/dL (74-99); Non-African American GFR(CKD) 20 (>60 ml/min/1.73 sqM); Potassium 3.3 mmol/L (3.5-5.1); Sodium 135 mmol/L (137-145)
--- NOTE | 2023-03-21 08:00 | XR ---
EXAMINATION TYPE: XR chest 1V DATE OF EXAM: 03/21/2023 6:47 AM CLINICAL INDICATION:Male, 62 years old with history of comparison from previous; COMPARISON: Chest radiographs from 03/14/2023. TECHNIQUE: XR chest 1V Frontal view of the chest. FINDINGS: Lungs/Pleura: Bibasilar atelectasis. No evidence for pneumothorax, pleural effusion or focal consolid ation. Pulmonary vascularity: Unremarkable. Heart/mediastinum: Cardiomediastinal silhouette is unremarkable. Musculoskeletal: No acute osseous pathology. Other findings: None Lines/Tubes: Right internal jugular central venous catheter with distal tip at the cavoatrial junction. IMPRESSION: 1. The proliferation likely due to phase of inspiration. Right central venous catheter tip in approp riate position. 2. Left basal atelectasis versus small pleural effusion.
[2023-03-21 08:06] VITALS: BP 94/52; PULSE 77; TEMP 97.4
[2023-03-21] MEDS: PANTOPRAZOLE 40 MG/10 ML VIAL IVP SCH (08:31)
[2023-03-21] MEDS: METOPROLOL TARTRATE 50 MG TAB PO SCH (08:32)
[2023-03-21] MEDS: FLUoxetine HCL 20 MG CAP PO SCH (08:32)
[2023-03-21] MEDS: SODIUM BICARBONATE TAB 650 MG TAB PO SCH (08:32)
[2023-03-21] MEDS: NYSTATIN 100,000 UNIT/ML SUSP 500,000 UNIT/5 ML CUP PO SCH ×3 (08:32→18:37)
[2023-03-21] MEDS: allopurinoL 100 MG TAB PO SCH (08:32)
[2023-03-21] MEDS: FOLIC ACID 1 MG TAB PO SCH (08:32)
[2023-03-21] MEDS: HEPARIN SODIUM,PORCINE 5,000 UNIT/ML 1 ML VIAL SQ SCH (08:33)
[2023-03-21] MEDS ORDERED: POTASSIUM CHLORIDE ER 20 MEQ TAB.ER PO STA (11:06)
--- NOTE | 2023-03-21 11:08 | P.DS ---
Providers Date of admission: 02/28/23 14:39 Expected date of discharge: 03/21/23 Attending physician: Gricel Ralph DO Consults: 02/28/23 15:01 Consult Physician Urgent Consulting Provider: Antonietta Simon Consult Reason/Comments: jamin/ckd Do you want consulting provider notified?: Yes 02/28/23 16:29 Consult Physician Urgent Consulting Provider: Ramiro Lacy Consult Reason/Comments: PNA Sepsis Do you want consulting provider notified?: Yes 02/28/23 16:32 Consult Physician Urgent Consulting Provider: Lidia Hollingsworth Consult Reason/Comments: PNA sepsis Do you want consulting provider notified?: Yes 03/01/23 16:32 Consult Physician Routine Consulting Provider: Thony Bennett Consult Reason/Comments: HFrEF, elevated troponin Do you want consulting provider notified?: Yes 03/04/23 12:01 Consult Physician Routine Consulting Provider: Francisco Lacy Consult Reason/Comments: R/o anoxic brain injury Do you want consulting provider notified?: Yes 03/13/23 07:41 Consult Physician Urgent Consulting Provider: Curry Jalloh Consult Reason/Comments: severe depression Do you want consulting provider notified?: Yes 03/13/23 07:44 Consult Physician Urgent Consulting Provider: Dominic Juarez Consult Reason/Comments: perm cath placement for hemodialysis Do you want consulting provider notified?: Yes, Notify in am 03/21/23 02:14 Consult Physician Routine Consulting Provider: Thony Bennett Consult Reason/Comments: non sustained vtach Do you want consulting provider notified?: Yes, Notify in am 03/21/23 10:55 Consult Physician Routine Consulting Provider: Gautam Crespo Consult Reason/Comments: urinary retention Do you want consulting provider notified?: Yes Primary care physician: Nelson Perez MD Hospital Course: 62 year old M with PMH of CKD, hypertension, gout, diabetes mellitus presents to the ED after being found down. Patient is lethargic and sleepy and majority of history is provided by his father. Patient is single, lives alone, takes care of his ADLs and IADL's and normally very active. Father states he has been dealing with a cold over the past week. Symptoms include cough, rhinorrhea, malaise, diarrhea, nausea and vomiting, poor appetite. Last time seen normal was yesterday at 6:30PM when he went to bed. Found down this morning by his father, apparently tried to use the washroom last night, unable to make it to bed, laid on the floor all night. EMS was subsequently called. In the ED, he underwent extensive workup. Tmax 100.7F. HR in the 90s. BP 92/47. 92% on RA. CBC showed leukocytosis of 11.1, hemoglobin of 8.3 and platelet count 142. INR 1.2 CMP showed potassium of 5.4, bicarb 10, BUN 113, creatinine 8.47, glucose 324, total bilirubin 2. Lactic acid 2.1. CPK 1240. Troponin 0.457. Acetone negative. Influenza, RSV, COVID-19 negative. Chest x-ray reviewed by me showed large left sided PNA. EKG showed sinus rhythm with no ST elevation. MILAGRO BLAKE was called yesterday. Patient was found to be in PEA arrest. He was given multiple amps of sodium bicarb and epinephrine. Patient was intubated. ROSC was achieved and he was transferred to the ICU. Dr. Lacy, Dr. Juarez and Dr. Simon was contacted. Emergent hemodialysis access was obtained and patient was started on dialysis. Patient was intubated and transferred to the ICU. He maintained on Levophed which was eventually weaned off. Echocardiogram as done which showed ejection fraction 20-25% with moderate TR and MR and therefore cardiology was consulted. Renal ultrasound showed gallbladder wall thickening but no signs of hydronephrosis or nephrolithiasis. His legionella urine antigen Positive and he was subsequently transitioned to Levaquin. Patient was not doing well with sedation holidays and neurology was subsequently consulted. He underwent a head CT which showed chronic microvascular ischemic changes and an EEG which showed moderate to severe background slowing. Left upper extremity venous Doppler showed no evidence of DVT but did show cephalic vein superficial thrombosis. He was successfully extubated on 03/08. Patient developed mucous plugging with white out on the left. He subsequently underwent bronchoscopy with Bronchoalveolar lavage on 03/10 showed mucous plug in the LLL and L mainstem bronchus. He was maintained on a Lasix drip, diuresing well but renal function continued to worsen. Plans are made for permacath on 03/13 and patient was started on HD. In the mean time, Psyc was consulted due to severe depression, he did not meet inpatient criteria but started on Prozac and Prolixin. He has some NSVT on 03/17, started on Metoprolol. Repeat Echo shows EF 20-25% with hypokinetic wall motion. Patient refused cardiac cath. Cardiology signed off. 03/21 Patient was seen and examined. Sleeping comfortably. Plans for . Dr. Hollingsworth recommends no antibiotics on discharge. Pertinent procedures and studies as above. Discharge Instructions: Diet: Renal Continue hemodialysis Sunday. Take all medications as advised. Follow up with PCP within 1-2 days of discharge. Follow up with Cardiology within 1 week of discharge. Attempt voiding trial. Vital signs reviewed General: nontoxic, no distress, appears at stated age Cardiovascular: good distal perfusion in all 4 extremities Lungs: breathing comfortably , no accessory muscle use Ext: no gross muscle atrophy, diffuse anasarca, no contractures Psych: Flat affect Discharge Diagnosis: Severe depression Acute kidney injury on chronic kidney disease Acute systolic cardiomyopathy with ejection fraction 20-25% Troponin elevation NSVT PEA arrest Acute hypoxic respiratory failure, extubated 03/09 Legionaires PNA with septic shock Left mucus plug, s/p bronch and BAL 03/10 Oral pharyngeal candidiasis Acute metabolic encephalopathy Normocytic anemia Diabetes mellitus with hyperglycemia Chronic conditions: Hypertension, gout Resolved: Metabolic acidosis, Hypokalemia, Rhabdomyolysis, Thrombocytopenia This complex discharge took 35 minutes to complete. Patient Condition at Discharge: Stable Plan - Discharge Summary Discharge Rx Participant: No New Discharge Prescriptions: New Metoprolol Tartrate [Lopressor] 50 mg PO BID tab Calcium Acetate [PhosLo] 667 mg PO BID-W/MEALS tab lisinopriL [Zestril] 2.5 mg PO DAILY tab Torsemide [Demadex] 40 mg PO DAILY tab Midodrine [ProAmatine] 2.5 mg PO AC-BID PRN tab PRN Reason: Hypotension fluPHENAZine [Prolixin] 2.5 mg PO DAILY tab FLUoxetine HCL [PROzac] 20 mg PO DAILY cap Continue calcitrioL [Calcitriol] 0.25 mcg PO MOTUWETHFR allopurinoL [Zyloprim] 100 mg PO DAILY Insulin Aspart [NovoLOG Flexpen] 7 units SQ AC-BID Ergocalciferol (Vitamin D2) [Drisdol (50,000 Iu)] 1,250 mcg PO Q14D Discontinued carvediloL [Coreg] 6.25 mg PO BID Sildenafil Citrate 50 mg PO DAILY PRN PRN Reason: E.D. Simvastatin 10 mg PO DAILY Discharge Medication List Insulin Aspart [NovoLOG Flexpen] 7 units SQ AC-BID 03/08/18 [History] allopurinoL [Zyloprim] 100 mg PO DAILY 03/08/18 [History] calcitrioL [Calcitriol] 0.25 mcg PO MOTUWETHFR 03/08/18 [History] Ergocalciferol (Vitamin D2) [Drisdol (50,000 Iu)] 1,250 mcg PO Q14D 02/28/23 [History] Calcium Acetate [PhosLo] 667 mg PO BID-W/MEALS tab 03/21/23 [Rx] FLUoxetine HCL [PROzac] 20 mg PO DAILY cap 03/21/23 [Rx] Metoprolol Tartrate [Lopressor] 50 mg PO BID tab 03/21/23 [Rx] Midodrine [ProAmatine] 2.5 mg PO AC-BID PRN tab 03/21/23 [Rx] Torsemide [Demadex] 40 mg PO DAILY tab 03/21/23 [Rx] fluPHENAZine [Prolixin] 2.5 mg PO DAILY tab 03/21/23 [Rx] lisinopriL [Zestril] 2.5 mg PO DAILY tab 03/21/23 [Rx] Follow up Appointment(s)/Referral(s): [facility] [NON-STAFF] - As Needed (Chair time: Tuesdays, , and Saturdays at 6:20a.m. ) Will Perez MD [STAFF PHYSICIAN] - 1-2 days Enmanuel Bocanegra MD [STAFF PHYSICIAN] - 2 Weeks Activity/Diet/Wound Care/Special Instructions: Diet: Renal Continue hemodialysis Sunday. Take all medications as advised. Follow up with PCP within 1-2 days of discharge. Follow up with Cardiology within 1 week of discharge. Attempt voiding trial. Discharge Disposition: TRANSFER TO SNF/ECF
--- NOTE | 2023-03-21 11:09 | P.PN ---
Subjective Patient is seen in follow-up for acute kidney injury on chronic kidney disease. Started on hemodialysis 03/01/2023. Has permacath. No problems with dialysis yesterday. Oral intake is fair. Hasn't voided since Lay catheter removed. Bladder scan overnight showed 346 mL of urine. Vital signs are stable. General: Resting in bed. HEENT: On room air. LUNGS: Scattered rhonchi. HEART: Rate and Rhythm are regular. ABDOMEN: No distention. EXTREMITITES: No edema. Objective - Vital Signs Vital signs: Vital Signs Temp 97.4 F L 03/21/23 07:56 Pulse 77 03/21/23 07:56 Resp 15 03/21/23 07:56 BP 94/52 03/21/23 07:56 Pulse Ox 96 03/21/23 07:56 FiO2 40 03/11/23 08:05 Intake & Output 03/20/23 03/21/23 03/21/23 18:59 06:59 18:59 Intake Total 500 50 Output Total 1748 Balance -1248 50 Intake: Oral 50 Hemodialysis 500 Output: Post Void Residual 248 Hemodialysis 1500 Other: Voiding Method Indwelling Catheter Urinal Diaper # Voids 0 ABP, PAP, CO, CI - Last Documented Arterial Blood Pressure 72/72 - Labs CBC & Chem 7: 03/19/23 06:31 03/21/23 06:01 Labs: Abnormal Lab Results - Last 24 Hours (Table) 03/20/23 03/20/23 03/20/23 Range/Units 11:50 17:30 21:28 Sodium (137-145) mmol/L Potassium (3.5-5.1) mmol/L BUN (9-20) mg/dL Creatinine (0.66-1.25) mg/dL Glucose (74-99) mg/dL POC Glucose (mg/dL) 134 H 144 H 155 H (70-110) mg/dL 03/21/23 03/21/23 Range/Units 05:33 06:01 Sodium 135 L (137-145) mmol/L Potassium 3.3 L (3.5-5.1) mmol/L BUN 22 H (9-20) mg/dL Creatinine 3.15 H (0.66-1.25) mg/dL Glucose 132 H (74-99) mg/dL POC Glucose (mg/dL) 166 H (70-110) mg/dL Assessment and Plan Plan: Assessment: 1. Acute kidney injury secondary to ATN secondary to cardiopulmonary arrest. Started on hemodialysis 03/01/2023. Has a permacath. 2. Cardiopulmonary arrest. 3. 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 CKD appears to have progressed with creatinine in the range of 3.1-3.4 in April and July 2022. 4. Chronic kidney disease mineral bone disease maintained on Calcitrol. Phosphorus level 5.4 dated 03/14/2023. On PhosLo. 5. Diabetes mellitus. 6. Shock s/p Levophed. 7. Anemia of chronic kidney disease. High ferritin noted. On Aranesp. 8. Metabolic acidosis secondary to chronic kidney disease maintained on oral bicarb. 9. Hypokalemia from diuretic use. 10. Acute on chronic systolic CHF with ejection fraction of 20-25% with mild to moderate mitral and tricuspid regurgitation. Plan: Hemodialysis tomorrow. Replace potassium. Maintain torsemide. Patient will be maintained on Sunday dialysis schedule outpatient. Monitor for renal recovery outpatient. Check bladder scan now. Insert Lay catheter if greater than 300 mL urine present. Patient will need to see urology if has persistent retention. Repeat phosphorus level.
[2023-03-21 11:52] LABS: Glucose,Whole Blood 166 mg/dL (70-110)
--- NOTE | 2023-03-21 12:46 | P.PN ---
Subjective Progress Note Date: 03/21/23 I am seeing this patient in new consultation today 03/01/2023 in the intensive care unit, after the patient had a witnessed PEA cardiac arrest while on the Observation unit. Patient is a 62-year-old white male with past medical history significant for diabetes mellitus, diabetic foot ulcers, hypertension, hyperlipidemia, iron deficiency anemia, chronic kidney disease. Patient is currently sedated and intubated on the mechanical ventilator. He was admitted yesterday morning, after being found on the floor by his father. Apparently, the patient denied hitting his head or losing consciousness. Patient does have diabetes mellitus, and his blood sugars had been running high at home. Chest x- ray on admission showed a left lower lobe infiltrate consistent with community acquired pneumonia. Patient did have a fever with a T-max of 100.7F. Apparently, after being admitted to the observation unt, the patient was noted to have low blood pressure. The patient was given 1 L normal saline bolus and 5 amps sodium bicarb. Soon after, the patient had a cardiac arrest. Presenting rhythm was PEA. Patient had a limited downtime of less than 5 minutes. He received 1 mg of epinephrine. Rapid sequence intubation was performed. The patient was then transferred to the intensive care unit. Dr. Lacy did come in and place a left subclavian central line catheter and a right wrist arterial line. Patient was also noted to be in acute renal failure. He did have a right femoral hemodialysis catheter placed earlier, and is currently undergoing emergent hemodialysis. Patient is currently in the intensive care unit, intubated to the mechanical ventilator. He is sedated on propofol which is currently infusing at 40 mcg/kg/m. He is synchronous with the mechanical ventilator. Postintubation ABG shows a pO2 greater than 400, pCO2 27, pH of 7.43, this was done on ventilator settings of assist control, respiratory rate 22, tidal volume 500, FiO2 100%, and PEEP of 5. Patient's FiO2 was dropped to 50%. Peak pressures 27. Post intubation chest x-ray shows the endotracheal tube 4 cm above the anika. Oral gastric tube could be advanced 5 cm. There is a persistent left lower lobe infiltrate. Most recent CBC from yesterday evening showed a WBC count of 7.8, hemoglobin 7.1, hematocrit 22.7, platelets 120. No obvious acute blood loss was noted. Most recent available BMP shows sodium 140, potassium 4.6, chloride 107, serum bicarb 15, BUN 107, creatinine 7.82, glucose 282. Acetone negative. LFTs not elevated. CPK 1240. Currently, 3 A sodium bicarb in D5W is infusing at 100 ML's per hour. There is also normal saline infusing at 130 ML's per hour. Patient is currently anuric. Troponins elevated at 0.457, 0.388, and 0.422 respectively. ECG shows normal sinus rhythm without any obvious acute ischemic changes. Urinalysis not concerning for UTI. Lactic acid level was elevated at 4 is down 1.6. Negative for influenza, RSV, COVID- 19. Patient was started on empiric antibiotics in the form of ceftriaxone and azithromycin. Currently afebrile. Patient's condition is currently critical, moderate in the intensive care unit. On 03/10/2023, the patient is resting comfortably. Breathing is nonlabored and the patient is on 4 L of oxygen by nasal cannula with a pulse ox of 97%. He has a IV daily for enteral feeding for nutritional support. His chest x-ray from today is showing significant volume loss in the left lung. Suspect mucus plugging as the patient has of optimal ability to do adequate pulmonary toileting. Based on that, the plan was to do a bedside bronchoscopy for therapeutic airway suctioning. . It is possible also that there may be some limited pleural effusion and left lung. The patient was echoes at 12.3, hemoglobin is 8.6, platelet count is 175, BUN is at 75 with a creatinine of 3.06. Sodium is at 133. Last hemodialysis session was yesterday. Note that the patient had a Legionella pneumonia in the left lower lobe and the patient continued to have a persistent consolidation of the left lung base. He remains on Levaquin. She remains on Eraxis. Infectious diseases on the case. He is on no pressors at this point in time. On Levemir insulin, 15 units at bedtime and 10 units in the morning. Is also on NovoLog siding scale coverage. He remains on metoprolol 25 mg 3 times a day.. Last hemodialysis session was yesterday and the patient is producing adequate amount of urine output for the time being. . On 03/11/2023, the patient is post bronchoscopy. The repeat chest x-ray was done today and the patient has ongoing consolidation of the left lung base related to residual pneumonia. Is improvement in volume status examination of the left lung. He remains on oxygen at 4 L/m nasal cannula. He continues to receive enteral feeding for nutritional support. He is still weak and having episodes of confusion. Is communicating for now. He has profound motor weakness in all 4 extremities. He remains on Levaquin. No nausea. No abd ominal pain or distention. He is producing urine output. No plans for dialysis today. He has of 87 with a creatinine of 3.97 and sodium is 135. WBC count 10.7 with a hemoglobin of 7.9. Oxygenation is further improved. The patient's current on room air oxygen with a pulse ox of 93%. He is on Levemir insulin 10 units in addition to sliding scale coverage. Heparin subcu for prophylaxis. Patient was reevaluated today on 03/12/2023, patient remains in the ICU, continues to have a significant left lower lobe consolidation. Remains on Lasix drip at 10 mg per hour, patient has excellent urine output, -3 L in the last 24 hours. Patient remains on Eraxis and on Levaquin. Ultrasound of the chest was ordered today to consider left-sided thoracentesis if there is enough fluid to drain. His BUN is 97 creatinine 4.84, his last dialysis was on 03/09 may be considered for hemodialysis catheter placement. Patient is wondering when he could go home, and I explained to them that he is not quite ready continues to have many issues to address. And he needs to BE cleared by all the consultants. Continues to have chronic wounds in both feet. Continues to be followed by many consultants. WBC count today is 7.8 hemoglobin 7.6 electrolytes are normal BUN is 97 creatinine 4.84. Ultrasound of the chest failed to show any pleural effusion in the left pleural space, hence the findings are mostly findings of strictly consolidation in the left lower lobe. Patient will reevaluated today on 03/13/23, remains in the ICU, patient remains on Lasix at 5 mg per hour, he has excellent urine output however his renal functioning seems to be getting worse. He was seen by nephrology today, and now the recommendation is to place a permacath, and possibly start dialysis on this patient. Creatinine is up to 5.99. In the meantime the patient could be considered for transfer to a 3 S. bad/monitor bed on selective. Patient is still receiving treatment for his Legionella pneumonia and sepsis. Remains on Levaquin. Chest x-ray showed significant improvement today in his left lower lobe consolidation, and again his ultrasound did not show any fluid to drain WBC count is 8 hemoglobin 7.5 electrolytes are relatively normal except for potassium of 5.4 and he had a BUN of 101 creatinine 5.99 Patient was today on 03/14/23, patient continues to feel down, refusing any treatment including oral medications, however the patient seems to be in no distress. On room air with O2 sat shows 95%, he is hemodynamically stable with blood pressure of 116/83, patient is supposed to undergo hemodialysis today, hopefully he doesn't declined hemodialysis. Patient was seen by psychiatry, and he is refusing to take his medication orally. Labs are basically unremarkable including CBC and basic metabolic profile is creatinine is 3.24 and he is supposed to get dialysis today. Reevaluated today on 03/15 patient is doing well, relatively asymptomatic, patient did undergo dialysis yesterday, being followed by cardiology and still considering cardiac catheterization on this patient after his kidney functioning improves and after hemodialysis. Today's BUN is 25 creatinine 2.19, steadily improving with hemodialysis. Chest x-ray continues to show left lower lobe atelectasis/pneumonia although clinically the patient is much better,, patient did have Legionella pneumonia treated The patient is seen today 03/16/2023 in follow-up on the selective care unit. He is currently resting comfortably in bed. Awake and alert in no acute distress. He is receiving hemodialysis. Currently in a negative balance. Bronchial wash cultures revealed no growth. White count 3.8. Hemoglobin 8.1. Platelets 231. Sodium 135. Potassium 4.3. Bicarb 26. BUN 36. Creatinine 3.72. Glucose 122. He remains on oral diuretics. Heparin for DVT prophylaxis. Antibiotics in the form of Levaquin. The patient is seen today 03/17/2023 in follow-up on the selective care unit. He is currently sitting up in bed. Awake and alert in no acute distress. Maintaining good O2 saturations in the 90s on room air. He's been afebrile. Hemodynamically stable. Finalized bronchial wash cultures revealed no growth. Urine culture revealed no growth. Blood cultures revealed no growth. Sputum culture revealed no growth. White count 3.7. Hemoglobin 8.4. Platelets 198. Glucose 146. He remains on Levaquin per ID services. Heparin for DVT prophylaxis. Oral diuretics. Currently in a -1.2 L balance. The patient is seen today 03/18/2023 in follow-up on the regular medical floor. He is currently awake and alert in no acute distress. He is maintaining good O2 saturations in the 90s on room air. He denies any worsening shortness of breath cough or congestion. Denies any chest pain. He is receiving hemodialysis on Fridays. He has a permacath in place. Cardiology is considering cardiac catheterization once stable. Blood cultures revealed no growth. Sputum culture revealed no growth. Urine culture no growth. Bronchial wash cultures no growth. White count 3.5. Hemoglobin 8.3. Platelets 195. Sodium 137. Potassium 4.5. Bicarb 25. BUN 34. Creatinine 4.04. Glucose 106. He remains on heparin for DVT prophylaxis. Antibiotics in the form of Levaquin. Remains on oral diuretics. The patient is seen today 03/19/2023 in follow-up on the regular medical floor. He is resting comfortably in bed. Awake and alert in no acute distress. He denies any worsening shortness of breath, cough or congestion. He is maintaining O2 saturations in the 90s on room air. He is continuing to require hemodialysis. Currently on a Sunday schedule. He remains on oral diuretics. Heparin for DVT prophylaxis. Indwelling catheter remains in place though minimal urine output. White count 4.2. Hemoglobin 8.1. Platelets 211. Sodium 141. Potassium 4.3. BUN 38. Creatinine 4.9. Glucose 134. The patient is seen today 03/20/2023 in follow-up on the regular medical floor. He is awake and alert in no acute distress. Maintaining good O2 saturations in the 90s on room air. He is resting comfortably in bed. He denies any worsening shortness of breath, cough or congestion. No chest pain. He tolerated hemodialysis well yesterday. His Lay catheter has been removed. He is maintained on Demadex. Heparin for DVT prophylaxis. Levaquin every 48 hours. Bronchial wash cultures revealed no growth. Urine culture had revealed no growth. Sodium 133. Potassium 3.8. Bicarb 24. BUN 23. Creatinine 3.14. Glucose 114. Hepatitis screen was negative. The patient is seen today 03/21/2023 in follow-up on the regular medical floor. He is currently resting comfortably in bed. Awake and alert in no acute distress. Continues to maintain good O2 saturations in the 90s on room air. He denies any worsening shortness of breath, cough or congestion. No fever chills. He remains quite weak and debilitated. He is on heparin for DVT prophylaxis. Remains on oral diuretics. Sodium 135. Potassium 3.3. Bicarb 27. BUN 22. Creatinine 3.15. Glucose 132. Objective - Vital Signs Vital signs: Vital Signs Temp 97.4 F L 03/21/23 07:56 Pulse 77 03/21/23 07:56 Resp 15 03/21/23 07:56 BP 94/52 03/21/23 07:56 Pulse Ox 96 03/21/23 07:56 FiO2 40 03/11/23 08:05 Intake & Output 03/20/23 03/21/23 03/21/23 18:59 06:59 18:59 Intake Total 500 50 Output Total 1748 Balance -1248 50 Intake: Oral 50 Hemodialysis 500 Output: Post Void Residual 248 Hemodialysis 1500 Other: Voiding Method Indwelling Catheter Urinal Urinal Diaper Diaper # Voids 0 ABP, PAP, CO, CI - Last Documented Arterial Blood Pressure 72/72 - Exam GENERAL EXAM: Awake 62-year-old male, resting in bed, comfortable in no apparent distress. HEAD: Normocephalic. EYES: Normal reaction of pupils, equal size. NOSE: Clear with pink turbinates. THROAT: No erythema or exudates. NECK: Right IJ hemodialysis catheter in place. No masses, no JVD. CHEST: No chest wall deformity. LUNGS: Equal air entry with crackles in the left lung base. CVS: S1 and S2 normal with no audible murmur, regular rhythm. ABDOMEN: No hepatosplenomegaly, normal bowel sounds, no guarding or rigidity. SPINE: No scoliosis or deformity SKIN: No rashes CENTRAL NERVOUS SYSTEM: No focal deficits, tone is normal in all 4 extremities. EXTREMITIES: Edema to the bilateral lower extremities. No clubbing, no cyanosis. Peripheral pulses are intact. - Labs CBC & Chem 7: 03/19/23 06:31 03/21/23 06:01 Labs: Abnormal Lab Results - Last 24 Hours (Table) 03/20/23 03/20/23 03/21/23 Range/Units 17:30 21:28 05:33 Sodium (137-145) mmol/L Potassium (3.5-5.1) mmol/L BUN (9-20) mg/dL Creatinine (0.66-1.25) mg/dL Glucose (74-99) mg/dL POC Glucose (mg/dL) 144 H 155 H 166 H (70-110) mg/dL 03/21/23 03/21/23 Range/Units 06:01 11:50 Sodium 135 L (137-145) mmol/L Potassium 3.3 L (3.5-5.1) mmol/L BUN 22 H (9-20) mg/dL Creatinine 3.15 H (0.66-1.25) mg/dL Glucose 132 H (74-99) mg/dL POC Glucose (mg/dL) 166 H (70-110) mg/dL Assessment and Plan Assessment: Witnessed PEA cardiac arrest with return of spontaneous circulation and an estimated down time of less than 5 minutes Acute anoxic encephalopathy, recovered Acute hypoxic respiratory failure secondary to above, recovered Acute left lower lobe pneumonia secondary to Legionella pneumonia and remains on Levaquin Severe cardiomyopathy and ejection fraction of 20-25% Cardiogenic shock, recovered Acute on chronic stage IV kidney disease, receiving hemodialysis Acute rhabdomyolysis Anemia of chronic disease Insulin-dependent diabetes Dyslipidemia Superficial vein thrombosis of the cephalic veins based on ultrasound Chronic diarrhea negative C. difficile screening Chronic draining wounds in both feet Plan: The patient was seen and evaluated Labs and medications reviewed Currently stable and on room air Plan will be for subacute rehab at discharge This patient was seen individually by the nurse practitioner I have personally seen and examined the patient, performed the documentation and the assessment and plan as written. Number of minutes spent on the visit: 22.
[2023-03-21] MEDS: LEVOFLOXACIN 500 MG TAB PO SCH (16:41)
--- NOTE | 2023-03-28 16:58 | P.PN ---
Subjective Progress Note Date: 03/21/23 Principal diagnosis: Sepsis and Legionella pneumonia Patient is a 62-year-old male with a past medical history significant for diabetes mellitus hypertension renal insufficiency patient was brought into the ER concerning for weakness and did have some respiratory symptoms patient did have a fever and worsening respiratory status requiring intubation and admission to the ICU the patient urine for digital antigen came back positive evening of 03/01/2023. Patient is status post bronchoscopy and lavage for mucus plugging on 03/10/2023 On today's evaluation that is 03/21/2023, the patient remains to be afebrile, patient is lethargic today and unable to provide any history, patient however is breathing comfortably on room air, no vomiting no diarrhea or any other changes reported by the nursing staff Patient white count is 4.27 as of 03/19/2023, creatinine is 3.15, blood and sputum cultures has been negative, urine for Legionella antigen positive I Objective - Vital Signs Vital signs: Vital Signs Temp 97.4 F L 03/21/23 07:56 Pulse 77 03/21/23 07:56 Resp 15 03/21/23 07:56 BP 94/52 03/21/23 07:56 Pulse Ox 96 03/21/23 07:56 FiO2 40 03/11/23 08:05 Intake & Output 03/20/23 03/21/23 03/21/23 18:59 06:59 18:59 Intake Total 500 50 Output Total 1748 Balance -1248 50 Intake: Oral 50 Hemodialysis 500 Output: Post Void Residual 248 Hemodialysis 1500 Other: Voiding Method Indwelling Catheter Urinal Diaper # Voids 0 ABP, PAP, CO, CI - Last Documented Arterial Blood Pressure 72/72 - Exam GENERAL DESCRIPTION: Middle-aged male lying in bed in no distress RESPIRATORY SYSTEM: Unlabored breathing , decreased breath sound at the base HEART: S1 S2 regular rate and rhythm , ABDOMEN: Soft , no tenderness EXTREMITIES: No edema feet - Labs CBC & Chem 7: 03/19/23 06:31 03/21/23 06:01 Labs: Abnormal Lab Results - Last 24 Hours (Table) 03/20/23 03/20/23 03/20/23 Range/Units 11:50 17:30 21:28 Sodium (137-145) mmol/L Potassium (3.5-5.1) mmol/L BUN (9-20) mg/dL Creatinine (0.66-1.25) mg/dL Glucose (74-99) mg/dL POC Glucose (mg/dL) 134 H 144 H 155 H (70-110) mg/dL 03/21/23 03/21/23 Range/Units 05:33 06:01 Sodium 135 L (137-145) mmol/L Potassium 3.3 L (3.5-5.1) mmol/L BUN 22 H (9-20) mg/dL Creatinine 3.15 H (0.66-1.25) mg/dL Glucose 132 H (74-99) mg/dL POC Glucose (mg/dL) 166 H (70-110) mg/dL Assessment and Plan (1) Legionella pneumonia Status: Acute Code(s): A48.1 - LEGIONNAIRES' DISEASE SNOMED Code(s): 598910807 (2) Sepsis Status: Acute Code(s): A41.9 - SEPSIS, UNSPECIFIED ORGANISM SNOMED Code(s): 21270064 Plan: 1patient presented to hospital with sepsis in this patient with a fever tachycardia hypotension source is likely left lower lobe pneumonia in this patient with weakness lethargy and decreased level of responsiveness , patient has been diagnosed with Legionella pneumonia 2- leukocytosis possible oropharyngeal candidiasis, patient white count has normalized to continue with nystatin swish and swallow 3-patient with legionella Pneumonia , patient did have improvement as well as his respiratory status is concerned has received about 3 weeks of antibiotic that should be enough no need for antibiotic on discharge and this was discussed with the admitting working on discharge Dictation was produced using [employer] dictation software. please excuse any grammatical, word or spelling errors. Time with Patient: Less than 30
== END 2023-03-21 18:50 | DRG 870 ==
LOC: EC 11:10 → 3SCARD 14:39 → 2SICU 18:06 → 3SCARD 03-16 06:44 → 6NMEDSUR 03-17 21:36
PROVIDERS: ADMIT Internal Medicine; ATTEND Internal Medicine
PROC: 5A1955Z Respiratory Ventilation, Greater than 96 Consecutive Hours (ICD-10-PCS; principal; 2023-02-28)
PROC: 5A12012 Performance of Cardiac Output, Single, Manual (ICD-10-PCS; 2023-02-28)
PROC: 3E043XZ Introduction of Vasopressor into Central Vein, Percutaneous Approach (ICD-10-PCS; 2023-02-28)
PROC: 0BH18EZ Insertion of Endotracheal Airway into Trachea, Via Natural or Artificial Opening Endoscopic (ICD-10-PCS; 2023-02-28)
PROC: 06HY33Z Insertion of Infusion Device into Lower Vein, Percutaneous Approach (ICD-10-PCS; 2023-02-28)
PROC: 5A1D70Z Performance of Urinary Filtration, Intermittent, Less than 6 Hours Per Day (ICD-10-PCS; 2023-02-28)
PROC: 03HY32Z Insertion of Monitoring Device into Upper Artery, Percutaneous Approach (ICD-10-PCS; 2023-02-28)
PROC: 4A133B1 Monitoring of Arterial Pressure, Peripheral, Percutaneous Approach (ICD-10-PCS; 2023-02-28)
PROC: 4A133J1 Monitoring of Arterial Pulse, Peripheral, Percutaneous Approach (ICD-10-PCS; 2023-02-28)
PROC: 06PYX3Z Removal of Infusion Device from Lower Vein, External Approach (ICD-10-PCS; 2023-03-09)
PROC: 0B9J8ZX Drainage of Left Lower Lung Lobe, Via Natural or Artificial Opening Endoscopic, Diagnostic (ICD-10-PCS; 2023-03-10)
PROC: 5A09357 Assistance with Respiratory Ventilation, Less than 24 Consecutive Hours, Continuous Positive Airway Pressure (ICD-10-PCS; 2023-03-10)
PROC: 0BCB8ZZ Extirpation of Matter from Left Lower Lobe Bronchus, Via Natural or Artificial Opening Endoscopic (ICD-10-PCS; 2023-03-10)
PROC: 0BC78ZZ Extirpation of Matter from Left Main Bronchus, Via Natural or Artificial Opening Endoscopic (ICD-10-PCS; 2023-03-10)
PROC: 02HV33Z Insertion of Infusion Device into Superior Vena Cava, Percutaneous Approach (ICD-10-PCS; 2023-03-13)
PROC: 02HV33Z Insertion of Infusion Device into Superior Vena Cava, Percutaneous Approach (ICD-10-PCS; 2023-03-13 12:25)
DX: A41.89 Other specified sepsis (principal); N17.0 Acute kidney failure with tubular necrosis; J96.01 Acute respiratory failure with hypoxia; I46.8 Cardiac arrest due to other underlying condition; G92.8 Other toxic encephalopathy; R65.21 Severe sepsis with septic shock; A48.1 Legionnaires' disease; I50.23 Acute on chronic systolic (congestive) heart failure; N18.6 End stage renal disease; I13.2 Hypertensive heart and chronic kidney disease with heart failure and with stage 5 chronic kidney disease, or end stage renal disease; I24.89 Other forms of acute ischemic heart disease; I47.20 Ventricular tachycardia, unspecified; I42.8 Other cardiomyopathies; G93.1 Anoxic brain damage, not elsewhere classified; E87.21 Acute metabolic acidosis; E87.3 Alkalosis; F05 Delirium due to known physiological condition; E87.1 Hypo-osmolality and hyponatremia; I82.612 Acute embolism and thrombosis of superficial veins of left upper extremity; B37.0 Candidal stomatitis; J98.11 Atelectasis; T79.6XXA Traumatic ischemia of muscle, initial encounter; E11.22 Type 2 diabetes mellitus with diabetic chronic kidney disease; Z79.4 Long term (current) use of insulin; E11.65 Type 2 diabetes mellitus with hyperglycemia; D69.6 Thrombocytopenia, unspecified; E11.621 Type 2 diabetes mellitus with foot ulcer; G31.9 Degenerative disease of nervous system, unspecified; L97.512 Non-pressure chronic ulcer of other part of right foot with fat layer exposed; L97.522 Non-pressure chronic ulcer of other part of left foot with fat layer exposed; E11.649 Type 2 diabetes mellitus with hypoglycemia without coma; D63.1 Anemia in chronic kidney disease; D50.9 Iron deficiency anemia, unspecified; F32.A Depression, unspecified; I80.8 Phlebitis and thrombophlebitis of other sites; E87.5 Hyperkalemia; M10.9 Gout, unspecified; E86.0 Dehydration; Z79.899 Other long term (current) drug therapy; Z20.822 Contact with and (suspected) exposure to COVID-19; J98.4 Other disorders of lung; E78.5 Hyperlipidemia, unspecified; E87.6 Hypokalemia; M89.8X9 Other specified disorders of bone, unspecified site; T50.2X5A Adverse effect of carbonic-anhydrase inhibitors, benzothiadiazides and other diuretics, initial encounter; I08.1 Rheumatic disorders of both mitral and tricuspid valves; R53.81 Other malaise; F43.20 Adjustment disorder, unspecified; W18.30XA Fall on same level, unspecified, initial encounter; Y92.009 Unspecified place in unspecified non-institutional (private) residence as the place of occurrence of the external cause; Z83.3 Family history of diabetes mellitus; Z82.49 Family history of ischemic heart disease and other diseases of the circulatory system
CPT/HCPCS: 36415; 36556; 36600; 70450; 71045; 71046; 76604; 76770; 76937; 77001; 80048; 80053; 81001; 82009; 82140; 82533; 82550; 82607; 82728; 82746; 82805; 83036; 83540; 83550; 83605; 83735; 84100; 84132; 84145; 84443; 84484; 85025; 85027; 85610; 85730; 86022; 86140; 86701; 86706; 86803; 87040; 87070; 87086; 87205; 87324; 87340; 87350; 87449; 87522; 87636; 90935; 92950; 93005; 93306; 93308; 94002; 94003; 94660; 95822; 96361; 96365; 96367; 99285

== ENCOUNTER → 2023-08-22 | Outpatient (CLI) | payer BC ==
--- NOTE | 2023-08-24 15:05 | CT ---
EXAMINATION TYPE: CT abdomen pelvis wo con DATE OF EXAM: 08/22/2023 COMPARISON: None INDICATION: Pre kidney transplant. DLP: 781 mGycm, Automated exposure control for dose reduction was used. CONTRAST: 0 mL of Isovue 300. Study performed without Oral Contrast TECHNIQUE: Axial images were obtained from above the diaphragm to the pubic rami in the axial plane a t 5 mm thick sections. Reconstructed images are reviewed on the computer in the coronal plane. FINDINGS: Limited CT sections are obtained the lung bases. The lung bases are clear. Coronary artery calcific ations present. CT ABDOMEN: Liver: Normal Spleen: Normal Pancreas: Atrophic Adrenal glands: The adrenal glands are normal. Gallbladder: Minimal sludge or gravel is present within the dependent gallbladder. Kidneys: No masses are evident. No hydronephrosis is present. No cysts are present. No renal stone s evident Aorta: Vascular calcification is within the aorta. Inferior vena cava: Normal. CT PELVIS: Diverticulosis is present within the sigmoid colon. No acute diverticulitis. The study is without ora l contrast limiting bowel evaluation. Appendix: Not identified. No dilated tubular structure or inflammatory changes evident Urinary bladder: Normal. Genitourinary structures: Prostate contains calcification. No enlargement is evident. Osseous structures: No suspicious lytic or sclerotic lesions. IMPRESSION: 1. No suspicious acute changes. 2. No suspicious changes for primary or metastatic disease. 3. Diverticulosis without acute diverticulitis. 4. Cholelithiasis.
== END | disposition home or self-care (01) ==
LOC: RADCTMAIN 10:07
PROVIDERS: ATTEND Family Medicine
DX: Z01.818 Encounter for other preprocedural examination (principal); K80.20 Calculus of gallbladder without cholecystitis without obstruction; K57.90 Diverticulosis of intestine, part unspecified, without perforation or abscess without bleeding
CPT/HCPCS: 74176

== ENCOUNTER → 2023-09-06 | Outpatient (CLI) | payer BC ==
[2023-09-06 18:31] LABS: Urine Creatinine 33.6 mg/dL (39.0-259.0)
== END | disposition home or self-care (01) ==
LOC: LABWHC1 07:32
PROVIDERS: ATTEND Family Medicine
DX: Z01.812 Encounter for preprocedural laboratory examination (principal); E11.9 Type 2 diabetes mellitus without complications
CPT/HCPCS: 36415; 82043; 82570; 83036; 84153; 86900; 86901

== ENCOUNTER 2023-11-28 08:30 | Day surgery (SDC) | payer BC ==
[2023-11-28] MEDS ORDERED: DEXTROSE 50% SYRINGE 50 ML IVP ONE (09:22)
[2023-11-28] MEDS ORDERED: INSULIN ASPART (NovoLOG) 100 UNIT/ML VIAL SQ ONE (09:23)
[2023-11-28] MEDS ORDERED: SODIUM CHLORIDE 0.9% 500 ML BAG ONE (09:25)
[2023-11-28] MEDS ORDERED: PROPOFOL 10 MG/ML 20 ML VIAL IV ONE (09:47)
--- NOTE | 2023-12-21 15:11 | P.PCN ---
Date of Procedure: 11/28/23 Procedure(s) Performed: This is an addendum to the procedure that was performed on 11/28/2023. Procedure performed colonoscopy Procedure: The scope was advanced all the way into the cecum. Careful examination was performed as the scope was gradually being withdrawn. No polyps seen. Small internal hemorrhoids noted.
== END 2023-11-28 10:35 | disposition home or self-care (01) ==
LOC: ORWHC2ENDO 08:30
PROVIDERS: ATTEND Internal Medicine Gastroenterology
DX: Z12.11 Encounter for screening for malignant neoplasm of colon (principal); K64.8 Other hemorrhoids; I12.0 Hypertensive chronic kidney disease with stage 5 chronic kidney disease or end stage renal disease; N18.6 End stage renal disease; E11.22 Type 2 diabetes mellitus with diabetic chronic kidney disease; Z99.2 Dependence on renal dialysis; Z79.899 Other long term (current) drug therapy; Z86.73 Personal history of transient ischemic attack (TIA), and cerebral infarction without residual deficits; Z98.49 Cataract extraction status, unspecified eye
CPT/HCPCS: 45378

== ENCOUNTER 2024-01-23 09:02 | Inpatient (IN) | payer BC ==
--- NOTE | 2024-01-23 09:58 | ED ---
General Adult HPI - General Chief complaint: Recheck/Abnormal Lab/Rx Stated complaint: issues with dialysis Source: patient Mode of arrival: wheelchair Limitations: no limitations - History of Present Illness Initial comments: This is a 63-year-old male presenting for nonpatent port for dialysis x 1 day. Patient states he attended dialysis today and was advised to his port was not patent and advised to follow-up with the ER and possibly have port replaced. Patient denies localized signs of infection, erythema, discharge, warmth, tenderness. Patient denies any other systemic symptoms including fever, chills, AMS, ALOC. Onset/Timin -: days(s) Location: chest - Related Data Home Medications Medication Instructions Recorded Confirmed allopurinoL [Zyloprim] 100 mg PO DAILY 03/08/18 02/28/23 Ergocalciferol (Vitamin D2) 1,250 mcg PO Q14D 02/28/23 02/28/23 [Drisdol (50,000 Iu)] Calcium Acetate [PhosLo] 1,334 mg PO TID-W/MEALS 01/23/24 01/23/24 Midodrine [ProAmatine] 2.5 mg PO AC-BID PRN 01/23/24 01/23/24 Repaglinide [Prandin] 0.5 mg PO AC-BID 01/23/24 01/23/24 Previous Rx's Medication Instructions Recorded Metoprolol Tartrate [Lopressor] 50 mg PO BID tab 03/21/23 Torsemide [Demadex] 40 mg PO DAILY tab 03/21/23 Allergies Allergy/AdvReac Type Severity Reaction Status Date / Time No Known Allergies Allergy Verified 01/23/24 12:39 Review of Systems ROS Statement: Those systems with pertinent positive or pertinent negative responses have been documented in the HPI. ROS Other: All systems not noted in ROS Statement are negative. Past Medical History Past Medical History: Blood Disorder, Diabetes Mellitus, Hypertension, Renal Disease, Skin Disorder Additional Past Medical History / Comment(s): diabetic ulcers jose feet, iron infusion 3 weeks ago. IRON DEFICIENCY ANEMIA. History of Any Multi-Drug Resistant Organisms: None Reported Past Surgical History: Tonsillectomy Additional Past Surgical History / Comment(s): kidney biopsy Past Anesthesia/Blood Transfusion Reactions: No Reported Reaction Past Psychological History: No Psychological Hx Reported Smoking Status: Never smoker Past Alcohol Use History: None Reported Past Drug Use History: None Reported - Past Family History Mother Family Medical History: Congestive Heart Failure (CHF), Coronary Artery Disease (CAD), Diabetes Mellitus Father Family Medical History: Cancer, Diabetes Mellitus General Exam Limitations: no limitations General appearance: alert, in no apparent distress Head exam: Present: atraumatic, normocephalic, normal inspection Eye exam: Present: normal appearance, PERRL, EOMI. Absent: scleral icterus, conjunctival injection, periorbital swelling ENT exam: Present: normal exam, mucous membranes moist Neck exam: Present: normal inspection. Absent: tenderness, meningismus, lymphadenopathy Respiratory exam: Present: normal lung sounds bilaterally. Absent: respiratory distress, wheezes, rales, rhonchi, stridor Cardiovascular Exam: Present: regular rate, normal rhythm, normal heart sounds. Absent: systolic murmur, diastolic murmur, rubs, gallop, clicks GI/Abdominal exam: Present: soft, normal bowel sounds. Absent: distended, tenderness, guarding, rebound, rigid Extremities exam: Present: normal inspection, full ROM, normal capillary refill. Absent: tenderness, pedal edema, joint swelling, calf tenderness Back exam: Present: normal inspection Neurological exam: Present: alert, oriented X3, CN II-XII intact Psychiatric exam: Present: normal affect, normal mood Skin exam: Present: warm, dry, intact, normal color, other (Port with 2 tubes noted in right superior upper chest. Negative erythema, discharge, warmth, tenderness.). Absent: rash Course Vital Signs 01/23/24 01/23/24 01/23/24 09:03 11:15 12:14 Temperature 98.2 F 100.7 F H 102.3 F H Pulse Rate 113 H 107 H 101 H Respiratory 20 20 20 Rate Blood Pressure 137/77 133/79 115/71 O2 Sat by Pulse 98 96 96 Oximetry 01/23/24 13:20 Temperature 102.2 F H Pulse Rate 114 H Respiratory 20 Rate Blood Pressure 125/82 O2 Sat by Pulse 95 Oximetry Medical Decision Making - Medical Decision Making Was pt. sent in by a medical professional or institution (, PA, BOAT LABORER, urgent care, hospital, or senior care...) When possible be specific @ -No Did you speak to anyone other than the patient for history (EMS, parent, family, police, friend...)? What history was obtained from this source @ -No Did you review nursing and triage notes (agree or disagree)? Why? @ -I reviewed and agree with nursing and triage notes Were old charts reviewed (outside hosp., previous admission, EMS record, old EKG, old radiological studies, urgent care reports/EKG's, senior care records)? Report findings @ -No old charts were reviewed Differential Diagnosis (chest pain, altered mental status, abdominal pain women, abdominal pain men, vaginal bleeding, weakness, fever, dyspnea, syncope, headac he, dizziness, GI bleed, back pain, seizure, CVA, palpatations, mental health, musculoskeletal)? @ -Differential Fever: Pneumonia, viral URI, endocarditis, myocarditis, pericarditis, otitis, sinusiti s, peritonsillar Abscess, retropharyngeal Abscess, epiglottitis, peritonitis, appendicitis, Birdie cystitis, diverticulitis, hepatitis, colitis, UTI, PID, TOA, pyelonephritis, prostatitis, epididymitis, meningitis, encephalitis, pulmonary embolism, CVA, thyroid storm, pancreatitis, adrenal crisis, cavernous sinus thrombosis, this is not meant to be an all-inclusive list. EKG interpreted by me (3pts min.). @ -As above X-rays interpreted by me (1pt min.). @ -None done CT interpreted by me (1pt min.). @ -None done U/S interpreted by me (1pt. min.). @ -None done What testing was considered but not performed or refused? (CT, X-rays, U/S, labs)? Why? @ -None What meds were considered but not given or refused? Why? @ -None Did you discuss the management of the patient with other professionals (p rofessionals i.e. , PA, BOAT LABORER, lab, RT, psych nurse, child protective services social worker, wrapper hand, teacher, procurement officer, case monitor)? Give summary @ -Dr. Alrology. Spoke to Dr. Simon who was requesting status of patient's dialysis and whether he would be able to attend outpatient dialysis or he would need to receive dialysis while admitted to hospital. Contacted Dr. Simon and notified of patient admission. Was smoking cessation discussed for >3mins.? @ -No Was critical care preformed (if so, how long)? @ -No Were there social determinants of health that impacted care today? How? (Homelessness, low income, unemployed, alcoholism, drug addiction, transportation, low edu. Level, literacy, decrease access to med. care, care home, rehab)? @ -No Was there de-escalation of care discussed even if they declined (Discuss DNR or withdrawal of care, Hospice)? DNR status @ -No What co-morbidities impacted this encounter? (DM, HTN, Smoking, COPD, CAD, Cancer, CVA, ARF, Chemo, Hep., AIDS, mental health diagnosis, sleep apnea, morbid obesity)? @ -None Was patient admitted / discharged? Hospital course, mention meds given and route, prescriptions, significant lab abnormalities, going to OR and other pertinent info. @ -Admitted. Nephrology tech was able to flush bilateral ports with tPA noting both are now patent. Patient has ongoing fever now 102 F with leukocytosis. Chest x-ray, UA, COVID testing, blood culture ordered and awaiting results for all. Received call from Dr. Simon from nephrology who would like patient to undergo dialysis today while waiting remaining results. Undiagnosed new problem with uncertain prognosis? @ -No Drug Therapy requiring intensive monitoring for toxicity (Heparin, Nitro, Insulin, Cardizem)? @ -No Were any procedures done? @ -No Diagnosis/symptom? @ -Nonpatent dialysis port. Acute, or Chronic, or Acute on Chronic? @ -Acute Uncomplicated (without systemic symptoms) or Complicated (systemic symptoms)? @ -Complicated Side effects of treatment? @ -No Exacerbation, Progression, or Severe Exacerbation? @ -No Poses a threat to life or bodily function? How? (Chest pain, [place], [place], pneumonia, PE, COPD, DKA, ARF, appy, cholecystitis, CVA, Diverticulitis, Homicidal, Tri cidal, threat to staff... and all critical care pts) @ -No - Lab Data Result diagrams: 01/23/24 10:01/23/24 10:08 Lab Results 01/23/24 01/23/24 01/23/24 Range/Units 10:08 10:08 12:13 WBC 13.1 H (3.8-10.6) k/uL RBC 4.03 L (4.30-5.90) m/uL Hgb 11.7 L (13.0-17.5) gm/dL Hct 35.5 L (39.0-53.0) % MCV 88.1 (80.0-100.0) fL MCH 29.1 (25.0-35.0) pg MCHC 33.0 (31.0-37.0) g/dL RDW 13.9 (11.5-15.5) % Plt Count 113 L (150-450) k/uL MPV 7.6 Neutrophils % 94 % Lymphocytes % 1 % Monocytes % 3 % Eosinophils % 1 % Basophils % 0 % Neutrophils # 12.3 H (1.3-7.7) k/uL Lymphocytes # 0.1 L (1.0-4.8) k/uL Monocytes # 0.4 (0-1.0) k/uL Eosinophils # 0.1 (0-0.7) k/uL Basophils # 0.0 (0-0.2) k/uL Sodium 132 L (137-145) mmol/L Potassium 4.7 (3.5-5.1) mmol/L Chloride 97 L (98-107) mmol/L Carbon Dioxide 19 L (22-30) mmol/L Anion Gap 16 mmol/L BUN 62 H (9-20) mg/dL Creatinine 6.13 H (0.66-1.25) mg/dL Est GFR (CKD-EPI)AfAm 10 (>60 ml/min/1.73 sqM) Est GFR (CKD-EPI)NonAf 9 (>60 ml/min/1.73 sqM) Glucose 248 H (74-99) mg/dL Calcium 9.2 (8.4-10.2) mg/dL Phosphorus 2.7 (2.5-4.5) mg/dL Magnesium 2.0 (1.6-2.3) mg/dL Total Bilirubin 2.1 H (0.2-1.3) mg/dL AST 25 (17-59) U/L ALT 20 (4-49) U/L Alkaline Phosphatase 95 (38-126) U/L Total Protein 7.0 (6.3-8.2) g/dL Albumin 4.0 (3.5-5.0) g/dL Influenza Type A (PCR) Not Detected (Not Detectd) Influenza Type B (PCR) Not Detected (Not Detectd) RSV (PCR) Not Detected (Not Detectd) SARS-CoV-2 (PCR) Not Detected (Not Detectd) Disposition Clinical Impression: Fever of unknown origin, Obstruction of peritoneal dialysis catheter Disposition: ADMITTED IP TO THIS HOSP Condition: Fair Is patient prescribed a controlled substance at d/c from ED?: No Referrals: Nelson Perez MD [Primary Care Provider] - 1-2 days Time of Disposition: 13:23 Decision Date: 01/23/24 Decision Time: 13:27
[2024-01-23 10:14] LABS: Basophils % (A) 0 %; Eosinophils # (A) 0.1 k/uL (0-0.7); Eosinophils % (A) 1 %; HCT 35.5 % (39.0-53.0); HGB 11.7 gm/dL (13.0-17.5); Lymphocytes # (A) 0.1 k/uL (1.0-4.8); Lymphocytes % (A) 1 %; MCH 29.1 pg (25.0-35.0); MCV 88.1 fL (80.0-100.0); Mean Platelet Volume 7.6; Monocytes # (A) 0.4 k/uL (0-1.0); Monocytes % (A) 3 %; Neutrophils # (A) 12.3 k/uL (1.3-7.7); Neutrophils % (A) 94 %; Platelet Count 113 k/uL (150-450); RBC 4.03 m/uL (4.30-5.90); RDW 13.9 % (11.5-15.5); WBC 13.1 k/uL (3.8-10.6)
[2024-01-23 10:27] LABS: ALT 20 U/L (4-49); AST 25 U/L (17-59); African American GFR (CKD) 10 (>60 ml/min/1.73 sqM); Alkaline Phosphatase 95 U/L (38-126); Anion Gap 16 mmol/L; Blood Urea Nitrogen 62 mg/dL (9-20); Calcium 9.2 mg/dL (8.4-10.2); Carbon Dioxide 19 mmol/L (22-30); Chloride 97 mmol/L (98-107); Glucose 248 mg/dL (74-99); Non-African American GFR(CKD) 9 (>60 ml/min/1.73 sqM); Phosphorus 2.7 mg/dL (2.5-4.5); Potassium 4.7 mmol/L (3.5-5.1); Sodium 132 mmol/L (137-145); Total Bilirubin 2.1 mg/dL (0.2-1.3)
[2024-01-23] MEDS: ACETAMINOPHEN TAB 500 MG TAB PO STA (11:24)
[2024-01-23] MEDS: ALTEPLASE 2 MG VIAL (CATHFLO) IV STA ×2 (12:18→12:34)
--- NOTE | 2024-01-23 12:57 | XR ---
EXAMINATION TYPE: XR chest 2V DATE OF EXAM: 01/23/2024 COMPARISON: 03/21/2023 HISTORY: Shortness of breath TECHNIQUE: Frontal and lateral views of the chest are obtained. FINDINGS: Scattered senescent parenchymal changes noted. Hyperinflation compatible with COPD. No evidence for infiltrate. No evidence for atelectasis. Heart size is stable. Mediastinal structures are stable and grossly unremarkable. No evidence for hilar prominence. Degenerative changes dorsal spine. IMPRESSION: 1. No evidence for acute pulmonary disease. [facility], , 01/23/2024 12:55 PM
[2024-01-23] MEDS ORDERED: NALOXONE 0.4 MG/ML 1 ML VIAL IV PRN (13:09)
[2024-01-23] MEDS: SODIUM CHLORIDE 0.9% 1,000 ML IV SCH (13:23)
--- NOTE | 2024-01-23 14:40 | P.NPCON ---
History of Present Illness - Reason for Consult end stage renal disease - History of Present Illness Patient is a 63-year-old male with end-stage renal disease on hemodialysis on Sunday schedule. Patient has a right IJ permacath. He is admitted to the hospital due to malfunctioning catheter. The dialysis staff was not able to access the catheter this morning. Patient also was noted to have fever of 10 2F. He denies any nausea vomiting diarrhea abdominal pain or chest pain. Patient denies any discharge or pain at the site of the catheter. No urinary symptoms. Patient had TPA in the catheter and his catheter is currently functional. Potassium was 4.7. Past Medical History Past Medical History: Blood Disorder, Diabetes Mellitus, Hypertension, Renal Disease, Skin Disorder Additional Past Medical History / Comment(s): diabetic ulcers jose feet, iron infusion 3 weeks ago. IRON DEFICIENCY ANEMIA. History of Any Multi-Drug Resistant Organisms: None Reported Past Surgical History: Tonsillectomy Additional Past Surgical History / Comment(s): kidney biopsy Past Anesthesia/Blood Transfusion Reactions: No Reported Reaction Past Psychological History: No Psychological Hx Reported Smoking Status: Never smoker Past Alcohol Use History: None Reported Past Drug Use History: None Reported - Past Family History Mother Family Medical History: Congestive Heart Failure (CHF), Coronary Artery Disease (CAD), Diabetes Mellitus Father Family Medical History: Cancer, Diabetes Mellitus Medications and Allergies Home Medications Medication Instructions Recorded Confirmed Type allopurinoL [Zyloprim] 100 mg PO DAILY 03/08/18 01/23/24 History Ergocalciferol (Vitamin D2) 1,250 mcg PO Q14D 02/28/23 01/23/24 History [Drisdol (50,000 Iu)] Metoprolol Tartrate [Lopressor] 50 mg PO BID tab 03/21/23 01/23/24 Rx Torsemide [Demadex] 40 mg PO DAILY tab 03/21/23 01/23/24 Rx Calcium Acetate [PhosLo] 1,334 mg PO TID-W/MEALS 01/23/24 01/23/24 History Midodrine [ProAmatine] 2.5 mg PO AC-BID PRN 01/23/24 01/23/24 History Repaglinide [Prandin] 0.5 mg PO AC-BID 01/23/24 01/23/24 History Allergies Allergy/AdvReac Type Severity Reaction Status Date / Time No Known Allergies Allergy Verified 01/23/24 12:39 Physical Exam Vitals: Vital Signs Temp Pulse Resp BP Pulse Ox 01/23/24 13:20 102.2 F H 114 H 20 125/82 95 01/23/24 12:14 102.3 F H 101 H 20 115/71 96 01/23/24 11:15 100.7 F H 107 H 20 133/79 96 01/23/24 09:03 98.2 F 113 H 20 137/77 98 Intake and Output 01/22/24 01/23/24 01/23/24 22:59 06:59 14:59 Other: Weight 74.843 kg patient is awake, alert, no acute distress. Examination of the heart S1 and S2 Examination of the lungs bilateral breath sounds are heard Abdomen is soft nontender Examination of lower extremity shows no evidence of edema No tenderness noted at the site of the IJ permacath. SURVEY SUPERINTENDENT exam grossly intact Results - Lab Results Most recent lab results Calcium 9.2 mg/dL (8.4-10.2) 01/23/24 10:08 Phosphorus 2.7 mg/dL (2.5-4.5) 01/23/24 10:08 Magnesium 2.0 mg/dL (1.6-2.3) 01/23/24 10:08 01/23/24 10:08 01/23/24 10:08 Assessment and Plan Assessment: 1. End-stage renal disease maintained on hemodialysis on Sunday schedule. 2. Malfunctioning dialysis catheter status post cathflo and it is currently functional. 3. Fever rule out catheter related infection. No evidence of infiltrates on chest x-ray. Check UA 4. CK D mineral bone disorder maintained on PhosLo Plan: hemodialysis today Continue with phosphate binders Check blood cultures Check blood cultures with dialysis as well.
[2024-01-23] MEDS: IBUPROFEN 600 MG TAB PO STA (14:55)
[2024-01-23] MEDS ORDERED: IBUPROFEN 600 MG TAB PO PRN (15:06)
[2024-01-23 15:49] LABS: Appearance,Urine Clear (Clear); Bacteria,Urine Rare /hpf; Bilirubin,Urine Negative (Negative); Blood,Urine Moderate (Negative); Color,Urine Light Yellow; Glucose,Urine (UA) 1+ (Negative); Ketones,Urine Negative (Negative); Leukocyte Esterase,Urine Moderate (Negative); Mucus,Urine Rare /hpf; Nitrite,Urine Negative (Negative); PH, Urine 6.5 (5.0-8.0); Protein,Urine 2+ (Negative); RBC,Urine 4 /hpf (0-5); Specific Gravity,Urine 1.013 (1.001-1.035); Urobilinogen,Urine <2.0 mg/dL (<2.0); WBC,Urine 13 /hpf (0-5)
[2024-01-23] MEDS ORDERED: VANCOMYCIN IV PER PHARMACY 1 EACH MISC MISCELLANE PRN (15:51)
[2024-01-23] MEDS ORDERED: DEXTROSE 50% SYRINGE 50 ML IVP PRN ×2 (15:58)
[2024-01-23] MEDS ORDERED: IBUPROFEN 600 MG TAB PO SCH (16:00)
--- NOTE | 2024-01-23 16:01 | P.HPIM ---
History of Present Illness H&P Date: 01/23/24 Chief Complaint: Lost dialysis access due to clotting Patient is a 63-year-old male with a past medical history of end-stage renal disease, diabetes mellitus, gout who presents to the ED from dialysis because his dialysis access was not working. In the ED patient was given tPA through the dialysis catheter after which the dialysis catheter became patent. In the ED patient was found to have a fever of 102.3. Patient is denying fevers. However when I saw him he was having rigors. Patient does state that he makes urine. He denied dysuria. Patient denies cough. In the ED WBC 13.1. 4 Plex was negative. Chest x-ray negative for acute process. Patient was given 1 dose of Rocephin. Patient admitted to the medicine service for workup of his fever. ROS: 10 ROS reviewed and are negative except as noted in HPI Physical exam General: [Patient is ill-appearing and having rigors]. Eye: [PERRL, EOMI, normal conjunctiva]. HENT: [Normocephalic, clear tympanic membranes, normal hearing, moist oral mucosa, no scleral icterus, no sinus tenderness]. Neck: [Supple, non-tender, no carotid bruits, no JVD, no lymphadenopathy]. Lungs: [Clear to auscultation and percussion, non-labored respiration, permacath in the right chest wall area with no signs of infection]. Heart: [Normal rate, regular rhythm, no murmur, gallop or edema]. Abdomen: [Soft, non-tender, non-distended, normal bowel sounds, no masses]. Musculoskeletal: [Normal range of motion and strength, no tenderness or swelling]. Skin: [Skin is warm, dry and pink, no rashes or lesions]. Neurologic: [Awake, alert, and oriented X3, CN II-XII intact]. Psychiatric: [Cooperative, appropriate mood and affect]. Assessment and plan Sepsis with fever and leukocytosis Lactic acid within normal limits and blood pressure normotensive so no need for fluid bolus Will start the patient on broad-spectrum antibiotics with IV vancomycin and c efepime Follow-up on blood culture Follow-up on blood culture from permacath Follow-up on UA consult ID ESRD Dialysis as per nephrology Patient had tPA administered through the permacath and permacath is now working. I reviewed note from nephrology and plan is for dialysis today Diabetes mellitus Sliding scale insulin DVT prophylaxis: Subcu heparin Past Medical History Past Medical History: Blood Disorder, Diabetes Mellitus, Hypertension, Renal Disease, Skin Disorder Additional Past Medical History / Comment(s): diabetic ulcers jose feet, iron infusion 3 weeks ago. IRON DEFICIENCY ANEMIA. History of Any Multi-Drug Resistant Organisms: None Reported Past Surgical History: Tonsillectomy Additional Past Surgical History / Comment(s): kidney biopsy Past Anesthesia/Blood Transfusion Reactions: No Reported Reaction Past Psychological History: No Psychological Hx Reported Smoking Status: Never smoker Past Alcohol Use History: None Reported Past Drug Use History: None Reported - Past Family History Mother Family Medical History: Congestive Heart Failure (CHF), Coronary Artery Disease (CAD), Diabetes Mellitus Father Family Medical History: Cancer, Diabetes Mellitus Medications and Allergies Home Medications Medication Instructions Recorded Confirmed Type allopurinoL [Zyloprim] 100 mg PO DAILY 03/08/18 01/23/24 History Ergocalciferol (Vitamin D2) 1,250 mcg PO Q14D 02/28/23 01/23/24 History [Drisdol (50,000 Iu)] Metoprolol Tartrate [Lopressor] 50 mg PO BID tab 03/21/23 01/23/24 Rx Torsemide [Demadex] 40 mg PO DAILY tab 03/21/23 01/23/24 Rx Calcium Acetate [PhosLo] 1,334 mg PO TID-W/MEALS 01/23/24 01/23/24 History Midodrine [ProAmatine] 2.5 mg PO AC-BID PRN 01/23/24 01/23/24 History Repaglinide [Prandin] 0.5 mg PO AC-BID 01/23/24 01/23/24 History Allergies Allergy/AdvReac Type Severity Reaction Status Date / Time No Known Allergies Allergy Verified 01/23/24 12:39 Physical Exam Osteopathic Statement: *. No significant issues noted on an osteopathic structural exam other than those noted in the History and Physical/Consult. Vitals: Vital Signs Temp Pulse Resp BP Pulse Ox 01/23/24 14:36 102.1 F H 117 H 22 146/88 98 01/23/24 13:20 102.2 F H 114 H 20 125/82 95 01/23/24 12:14 102.3 F H 101 H 20 115/71 96 01/23/24 11:15 100.7 F H 107 H 20 133/79 96 01/23/24 09:03 98.2 F 113 H 20 137/77 98 Intake and Output 01/23/24 01/23/24 01/23/24 06:59 14:59 22:59 Other: Weight 74.843 kg Results CBC & Chem 7: 01/23/24 10:08 01/23/24 10:08 Labs: Abnormal Lab Results - Last 24 Hours (Table) 01/23/24 01/23/24 Range/Units 10:08 10:08 WBC 13.1 H (3.8-10.6) k/uL RBC 4.03 L (4.30-5.90) m/uL Hgb 11.7 L (13.0-17.5) gm/dL Hct 35.5 L (39.0-53.0) % Plt Count 113 L (150-450) k/uL Neutrophils # 12.3 H (1.3-7.7) k/uL Lymphocytes # 0.1 L (1.0-4.8) k/uL Sodium 132 L (137-145) mmol/L Chloride 97 L (98-107) mmol/L Carbon Dioxide 19 L (22-30) mmol/L BUN 62 H (9-20) mg/dL Creatinine 6.13 H (0.66-1.25) mg/dL Glucose 248 H (74-99) mg/dL Total Bilirubin 2.1 H (0.2-1.3) mg/dL
[2024-01-23] MEDS: INSULIN ASPART (NovoLOG) 100 UNIT/ML VIAL SQ SCH (17:30)
[2024-01-23] MEDS: CALCIUM ACETATE 667 MG TAB PO SCH (21:38)
[2024-01-23] MEDS: REPAGLINIDE 1 MG TAB PO SCH (21:41)
[2024-01-23] MEDS: VANCOMYCIN 1,250 MG in SODIUM CHLORIDE 0.9% 250 ML IVPB ONE (21:48)
[2024-01-23] MEDS: HEPARIN SODIUM,PORCINE 5,000 UNIT/ML 1 ML VIAL SQ SCH (21:53)
[2024-01-23] MEDS: METOPROLOL TARTRATE 50 MG TAB PO SCH (21:54)
[2024-01-23] MEDS: CEFEPIME 1 GM in SODIUM CHLORIDE 0.9% 50 ML IVPB SCH (22:03)
--- NOTE | 2024-01-23 22:46 | P.CONS ---
History of Present Illness - Reason for Consult Consult date: 01/23/24 Fever Requesting physician: Will Lopez - Chief Complaint Fever x 1 day - History of Present Illness Patient is a 63-year-old male with a past medical history significant for end-stage renal disease on hemodialysis through the right IJ permacatheter that has been placed February last year also with a history of diabetes mellitus hypertension patient has been sent to the ER from the dialysis center with the patient was noticed to have fever and apparently the port was not working patient on presentation to the hospital did have a temperature of 100.7 with subsequent spike a fever of 102 F patient was tachycardic but not hypotensive or hypoxic and no need for supplemental oxygen he did have white count of 13.1 creatinine 6.13 liver isms are normal influenza RSV COVID testing has been negative chest x-ray was reported negative for acute infiltrate patient was started on cefepime and vancomycin infectious disease was consulted for further management of antibiotic therapy patient the time my evaluation has been complaining of fever and chills for about a day denies any headache or URI symptoms no chest pain shortness of breath or cough no nausea vomiting no abdominal pain no diarrhea Review of Systems Positive point and negatives has been mentioned in the HPI, complete review of systems was performed and all other systems are negative Past Medical History Past Medical History: Blood Disorder, Diabetes Mellitus, Hypertension, Renal Disease, Skin Disorder Additional Past Medical History / Comment(s): diabetic ulcers jose feet, iron infusion 3 weeks ago. IRON DEFICIENCY ANEMIA. History of Any Multi-Drug Resistant Organisms: None Reported Past Surgical History: Tonsillectomy Additional Past Surgical History / Comment(s): kidney biopsy Past Anesthesia/Blood Transfusion Reactions: No Reported Reaction Past Psychological History: No Psychological Hx Reported Smoking Status: Never smoker Past Alcohol Use History: None Reported Past Drug Use History: None Reported - Past Family History Mother Family Medical History: Congestive Heart Failure (CHF), Coronary Artery Disease (CAD), Diabetes Mellitus Father Family Medical History: Cancer, Diabetes Mellitus Medications and Allergies Home Medications Medication Instructions Recorded Confirmed Type allopurinoL [Zyloprim] 100 mg PO DAILY 03/08/18 01/23/24 History Ergocalciferol (Vitamin D2) 1,250 mcg PO Q14D 02/28/23 01/23/24 History [Drisdol (50,000 Iu)] Metoprolol Tartrate [Lopressor] 50 mg PO BID tab 03/21/23 01/23/24 Rx Torsemide [Demadex] 40 mg PO DAILY tab 03/21/23 01/23/24 Rx Calcium Acetate [PhosLo] 1,334 mg PO TID-W/MEALS 01/23/24 01/23/24 History Midodrine [ProAmatine] 2.5 mg PO AC-BID PRN 01/23/24 01/23/24 History Repaglinide [Prandin] 0.5 mg PO AC-BID 01/23/24 01/23/24 History Allergies Allergy/AdvReac Type Severity Reaction Status Date / Time No Known Allergies Allergy Verified 01/23/24 12:39 Physical Exam Vitals: Vital Signs Temp Pulse Resp BP Pulse Ox 01/23/24 14:36 102.1 F H 117 H 22 146/88 98 01/23/24 13:20 102.2 F H 114 H 20 125/82 95 01/23/24 12:14 102.3 F H 101 H 20 115/71 96 01/23/24 11:15 100.7 F H 107 H 20 133/79 96 01/23/24 09:03 98.2 F 113 H 20 137/77 98 Intake and Output 01/23/24 01/23/24 01/23/24 06:59 14:59 22:59 Output Total 170 Balance -170 Output: Post Void Residual 170 Other: Weight 74.843 kg GENERAL DESCRIPTION: Middle-aged male lying in bed, no distress. No tachypnea or accessory muscle of respiration use. HEENT: Shows Pallor , no scleral icterus. Oral mucous membrane is dry. No pharyngeal erythema or thrush NECK: Trachea central, no thyromegaly. LUNGS: Unlabored breathing. Clear to auscultation anteriorly. No wheeze or crackle. HEART: S1, S2, regular rate and rhythm. No loud murmur ABDOMEN: Soft, no tenderness , guarding or rigidity, no organomegaly EXTREMITIES: No edema of feet. SKIN: No rash, no masses palpable. NEUROLOGICAL: The patient is awake, alert, oriented x3, mood and affect normal. Results CBC & Chem 7: 01/23/24 10:08 01/23/24 10:08 Labs: Abnormal Lab Results - Last 24 Hours (Table) 01/23/24 01/23/24 Range/Units 10:08 10:08 WBC 13.1 H (3.8-10.6) k/uL RBC 4.03 L (4.30-5.90) m/uL Hgb 11.7 L (13.0-17.5) gm/dL Hct 35.5 L (39.0-53.0) % Plt Count 113 L (150-450) k/uL Neutrophils # 12.3 H (1.3-7.7) k/uL Lymphocytes # 0.1 L (1.0-4.8) k/uL Sodium 132 L (137-145) mmol/L Chloride 97 L (98-107) mmol/L Carbon Dioxide 19 L (22-30) mmol/L BUN 62 H (9-20) mg/dL Creatinine 6.13 H (0.66-1.25) mg/dL Glucose 248 H (74-99) mg/dL Total Bilirubin 2.1 H (0.2-1.3) mg/dL Assessment and Plan (1) Sepsis Current Visit: No Status: Acute Code(s): A41.9 - SEPSIS, UNSPECIFIED ORGANISM SNOMED Code(s): 35298558 Plan: 1patient presented to hospital with sepsis in this patient who did have fever tachycardia elevated white count source and likely dialysis catheter infection and the patient did have a negative chest x-ray no respiratory symptoms abdo kenny was soft rectal examination evidence of any cellulitis or joint swelling 2-blood culture has been obtained peripherally nursing staff has been advised to obtain blood culture at the time of dialysis 3patient to continue the vancomycin and cefepime while waiting for the workup to be completed We will follow on clinical condition and cultures to further adjust medication if needed Thank you for this consultation we will follow the patient along with you Dictation was produced using [employer] dictation software. please excuse any grammatical, word or spelling errors. Time with Patient: Greater than 30
[2024-01-24 08:15] LABS: Basophils % (A) 0 %; Eosinophils % (A) 0 %; HGB 11.1 gm/dL (13.0-17.5); Lymphocytes # (A) 0.3 k/uL (1.0-4.8); Lymphocytes % (A) 3 %; MCH 29.2 pg (25.0-35.0); MCHC 32.5 g/dL (31.0-37.0); MCV 89.9 fL (80.0-100.0); Mean Platelet Volume 8.7; Monocytes # (A) 0.4 k/uL (0-1.0); Monocytes % (A) 4 %; Neutrophils # (A) 8.8 k/uL (1.3-7.7); Neutrophils % (A) 92 %; RBC 3.79 m/uL (4.30-5.90); WBC 9.6 k/uL (3.8-10.6)
[2024-01-24 08:34] LABS: African American GFR (CKD) 21 (>60 ml/min/1.73 sqM); Anion Gap 11 mmol/L; Blood Urea Nitrogen 33 mg/dL (9-20); Calcium 8.6 mg/dL (8.4-10.2); Carbon Dioxide 27 mmol/L (22-30); Chloride 99 mmol/L (98-107); Glucose 98 mg/dL (74-99); Non-African American GFR(CKD) 18 (>60 ml/min/1.73 sqM); Potassium 3.8 mmol/L (3.5-5.1); Sodium 137 mmol/L (137-145)
[2024-01-24 08:50] LABS: Platelet Count 92 k/uL (150-450)
[2024-01-24 08:52] LABS: Toxic Granulation Present; Toxic Vacuolation Present
[2024-01-24] MEDS: allopurinoL 100 MG TAB PO SCH (10:00)
[2024-01-24] MEDS: LOPERAMIDE 2 MG CAP PO PRN (10:00)
--- NOTE | 2024-01-24 11:21 | P.PN ---
Subjective patient is seen for follow-up for end-stage renal disease. tolerated hemodialysis well yesterday with UF of 1 L. Blood cultures are growing gram-positive cocci. Status post vancomycin yesterday. Patient is complaining of diarrhea. Objective - Vital Signs Vital signs: Vital Signs Temp 98.2 F 01/24/24 08:00 Pulse 81 01/24/24 08:00 Resp 18 01/24/24 08:00 BP 93/59 01/24/24 08:00 Pulse Ox 94 L 01/24/24 08:00 FiO2 Intake & Output 01/23/24 01/24/24 01/24/24 18:59 06:59 18:59 Intake Total 400 Output Total 390 1400 Balance -390 -1000 Weight 74.843 kg 74 kg Intake: Hemodialysis 400 Output: Urine 220 Straight 220 Post Void Residual 170 Hemodialysis 900 Hemodialysis Net Amount 500 Other: # Voids 0 # Bowel Movements 1 - Exam patient is awake, alert, no acute distress. Examination of the heart S1 and S2 Examination of the lungs bilateral breath sounds are heard Abdomen is soft nontender Examination of lower extremity shows no evidence of edema No tenderness noted at the site of the IJ permacath. PICK UP exam grossly intact - Labs CBC & Chem 7: 01/24/24 06:38 01/24/24 06:38 Labs: Abnormal Lab Results - Last 24 Hours (Table) 01/23/24 01/24/24 01/24/24 Range/Units 15:15 06:38 06:38 RBC 3.79 L (4.30-5.90) m/uL Hgb 11.1 L (13.0-17.5) gm/dL Hct 34.0 L (39.0-53.0) % Plt Count 92 L (150-450) k/uL Neutrophils # 8.8 H (1.3-7.7) k/uL Lymphocytes # 0.3 L (1.0-4.8) k/uL BUN (9-20) mg/dL Creatinine (0.66-1.25) mg/dL Hemoglobin A1c 6.8 H (<=6.0) % Urine Protein 2+ H (Negative) Urine Glucose (UA) 1+ H (Negative) Urine Blood Moderate H (Negative) Ur Leukocyte Esterase Moderate H (Negative) Urine WBC 13 H (0-5) /hpf Urine Bacteria Rare H (None) /hpf Urine Mucus Rare H (None) /hpf 01/24/24 Range/Units 06:38 RBC (4.30-5.90) m/uL Hgb (13.0-17.5) gm/dL Hct (39.0-53.0) % Plt Count (150-450) k/uL Neutrophils # (1.3-7.7) k/uL Lymphocytes # (1.0-4.8) k/uL BUN 33 H (9-20) mg/dL Creatinine 3.36 H (0.66-1.25) mg/dL Hemoglobin A1c (<=6.0) % Urine Protein (Negative) Urine Glucose (UA) (Negative) Urine Blood (Negative) Ur Leukocyte Esterase (Negative) Urine WBC (0-5) /hpf Urine Bacteria (None) /hpf Urine Mucus (None) /hpf Microbiology - Last 24 Hours (Table) 01/23/24 17:00 Blood Culture Gram Stain - Preliminary Blood 01/23/24 12:40 Blood Culture Gram Stain - Preliminary Blood Blood Culture - Preliminary Molecular ID Assessment and Plan Assessment: 1. End-stage renal disease maintained on hemodialysis on Sunday schedule. 2. Malfunctioning dialysis catheter status post cathflo and it is currently functional. 3. Staph aureus bacteremia, possibly catheter related 4. CK D mineral bone disorder maintained on PhosLo Plan: hemodialysis in a.m. Continue with antibiotics Continue with phosphate binders
--- NOTE | 2024-01-24 12:40 | P.PN ---
Subjective Progress Note Date: 01/24/24 Patient is a 63-year-old male with a past medical history of end-stage renal disease, diabetes mellitus, gout who presents to the ED from dialysis because his dialysis access was not working. In the ED patient was given tPA through the dialysis catheter after which the dialysis catheter became patent. In the ED patient was found to have a fever of 102.3. Patient is denying fevers. However when I saw him he was having rigors. Patient does state that he makes urine. He denied dysuria. Patient denies cough. In the ED WBC 13.1. 4 Plex was negative. Chest x-ray negative for acute process. Patient was given 1 dose of Rocephin. Patient admitted to the medicine service for workup of his fever. Patient was started on IV vancomycin and cefepime. Patient's blood culture was positive for MRSA. Infectious disease on board. Patient seen this morning. He states that he is feeling a lot better today compared to yesterday. Patient states that yesterday he ate a cheese sandwich. He states that he is lactose intolerant. He states that he is having diarrhea this morning. Physical exam General examination - Alert and Oriented 3 in NAD Heart - + S1S2 no murmurs Lungs - Clear to auscultation, permacath in the right chest wall with no surrounding erythema swelling or tenderness to palpate Abdomen soft NT ND +ve BS Extremities - No edema [employer] - Moving all 4 extremities spontaneously Psych - Calm and cooperative Assessment and plan Sepsis on admission MRSA bacteremia suspect the source is from the dialysis catheter Continue with IV vancomycin pharmacy to dose and monitor for toxicity. Continue with IV cefepime 1 g twice daily I reviewed blood culture which is positive for MRSA. Follow-up on blood culture until finalized Follow-up on blood culture from permacath I ordered for repeat blood culture today Infectious diseases on board UA reviewed and is negative for UTI consult ID ESRD Dialysis as per nephrology Patient had tPA administered through the permacath in the ED and permacath is now working. Diabetes mellitus Sliding scale insulin Hemoglobin A1c is 6.8 Acute diarrhea likely due to lactose intolerant Avoid dairy products Imodium as needed I reviewed stool sample which was negative for C. difficile DVT prophylaxis: Subcu heparin Objective - Vital Signs Vital signs: Vital Signs Temp 97.7 F 01/24/24 12:00 Pulse 85 01/24/24 12:00 Resp 18 01/24/24 12:00 BP 116/54 01/24/24 12:00 Pulse Ox 94 L 01/24/24 12:00 FiO2 Intake & Output 01/23/24 01/24/24 01/24/24 18:59 06:59 18:59 Intake Total 400 Output Total 390 1400 Balance -390 -1000 Weight 74.843 kg 74 kg Intake: Hemodialysis 400 Output: Urine 220 Straight 220 Post Void Residual 170 Hemodialysis 900 Hemodialysis Net Amount 500 Other: # Voids 0 # Bowel Movements 1 - Labs CBC & Chem 7: 01/24/24 06:38 01/24/24 06:38 Labs: Abnormal Lab Results - Last 24 Hours (Table) 01/23/24 01/24/24 01/24/24 Range/Units 15:15 06:38 06:38 RBC 3.79 L (4.30-5.90) m/uL Hgb 11.1 L (13.0-17.5) gm/dL Hct 34.0 L (39.0-53.0) % Plt Count 92 L (150-450) k/uL Neutrophils # 8.8 H (1.3-7.7) k/uL Lymphocytes # 0.3 L (1.0-4.8) k/uL BUN (9-20) mg/dL Creatinine (0.66-1.25) mg/dL Hemoglobin A1c 6.8 H (<=6.0) % Urine Protein 2+ H (Negative) Urine Glucose (UA) 1+ H (Negative) Urine Blood Moderate H (Negative) Ur Leukocyte Esterase Moderate H (Negative) Urine WBC 13 H (0-5) /hpf Urine Bacteria Rare H (None) /hpf Urine Mucus Rare H (None) /hpf 01/24/24 Range/Units 06:38 RBC (4.30-5.90) m/uL Hgb (13.0-17.5) gm/dL Hct (39.0-53.0) % Plt Count (150-450) k/uL Neutrophils # (1.3-7.7) k/uL Lymphocytes # (1.0-4.8) k/uL BUN 33 H (9-20) mg/dL Creatinine 3.36 H (0.66-1.25) mg/dL Hemoglobin A1c (<=6.0) % Urine Protein (Negative) Urine Glucose (UA) (Negative) Urine Blood (Negative) Ur Leukocyte Esterase (Negative) Urine WBC (0-5) /hpf Urine Bacteria (None) /hpf Urine Mucus (None) /hpf Microbiology - Last 24 Hours (Table) 01/23/24 17:00 Blood Culture Gram Stain - Preliminary Blood 01/23/24 12:40 Blood Culture Gram Stain - Preliminary Blood Blood Culture - Preliminary Molecular ID
[2024-01-24] MEDS: VANCOMYCIN 1,250 MG in SODIUM CHLORIDE 0.9% 250 ML IVPB ONE (12:42)
--- NOTE | 2024-01-24 13:17 | P.PN ---
Subjective Progress Note Date: 01/24/24 Principal diagnosis: Reason for follow-up is MRSA bacteremia Patient is a 63-year-old male with a past medical history significant for end-stage renal disease on hemodialysis through the right IJ permacatheter that has been placed February last year also with a history of diabetes mellitus hypertension patient has been sent to the ER from the dialysis center with the patient was noticed to have fever and apparently the port was not working, patient was started on cefepime vancomycin concerning for line related infection his blood culture subsequently came back positive with MRSA. On today's evaluation that is 01/24/2024, Patient did have resolution of his fever and is afebrile today, patient is currently on room air and denies having any shortness of breath, the patient denies any chest pain or cough, the patient denies any nausea vomiting did not have any abdominal pain and no diarrhea. Patient white count is down to 9.6, creatinine 3.36 stool for C. difficile negative blood culture with MRSA Objective - Vital Signs Vital signs: Vital Signs Temp 98.2 F 01/24/24 08:00 Pulse 81 01/24/24 08:00 Resp 18 01/24/24 08:00 BP 93/59 01/24/24 08:00 Pulse Ox 94 L 01/24/24 08:00 FiO2 Intake & Output 01/23/24 01/24/24 01/24/24 18:59 06:59 18:59 Intake Total 400 Output Total 390 1400 Balance -390 -1000 Weight 74.843 kg 74 kg Intake: Hemodialysis 400 Output: Urine 220 Straight 220 Post Void Residual 170 Hemodialysis 900 Hemodialysis Net Amount 500 Other: # Voids 0 # Bowel Movements 1 - Exam GENERAL DESCRIPTION: Middle-age male lying in bed in no distress RESPIRATORY SYSTEM: Unlabored breathing , decreased breath sounds at bases HEART: S1 S2 regular rate and rhythm , ABDOMEN: Soft , no tenderness EXTREMITIES: No edema feet - Labs CBC & Chem 7: 01/24/24 06:38 01/24/24 06:38 Labs: Abnormal Lab Results - Last 24 Hours (Table) 01/23/24 01/24/24 01/24/24 Range/Units 15:15 06:38 06:38 RBC 3.79 L (4.30-5.90) m/uL Hgb 11.1 L (13.0-17.5) gm/dL Hct 34.0 L (39.0-53.0) % Plt Count 92 L (150-450) k/uL Neutrophils # 8.8 H (1.3-7.7) k/uL Lymphocytes # 0.3 L (1.0-4.8) k/uL BUN (9-20) mg/dL Creatinine (0.66-1.25) mg/dL Hemoglobin A1c 6.8 H (<=6.0) % Urine Protein 2+ H (Negative) Urine Glucose (UA) 1+ H (Negative) Urine Blood Moderate H (Negative) Ur Leukocyte Esterase Moderate H (Negative) Urine WBC 13 H (0-5) /hpf Urine Bacteria Rare H (None) /hpf Urine Mucus Rare H (None) /hpf 01/24/24 Range/Units 06:38 RBC (4.30-5.90) m/uL Hgb (13.0-17.5) gm/dL Hct (39.0-53.0) % Plt Count (150-450) k/uL Neutrophils # (1.3-7.7) k/uL Lymphocytes # (1.0-4.8) k/uL BUN 33 H (9-20) mg/dL Creatinine 3.36 H (0.66-1.25) mg/dL Hemoglobin A1c (<=6.0) % Urine Protein (Negative) Urine Glucose (UA) (Negative) Urine Blood (Negative) Ur Leukocyte Esterase (Negative) Urine WBC (0-5) /hpf Urine Bacteria (None) /hpf Urine Mucus (None) /hpf Microbiology - Last 24 Hours (Table) 01/23/24 17:00 Blood Culture Gram Stain - Preliminary Blood 01/23/24 12:40 Blood Culture Gram Stain - Preliminary Blood Blood Culture - Preliminary Molecular ID Assessment and Plan (1) Sepsis Current Visit: No Status: Acute Code(s): A41.9 - SEPSIS, UNSPECIFIED ORGANISM SNOMED Code(s): 75151749 Plan: 1patient presented to hospital with sepsis in this patient who did have fever tachycardia elevated white count source and likely dialysis catheter infection and the patient did have a negative chest x-ray no respiratory symptoms abdominal was soft rectal examination evidence of any cellulitis or joint swelling 2-blood culture coming back positive with MRSA source likely dialysis catheter infection 3patient to continue the vancomycin we will discontinue cefepime blood culture have been reviewed document clearance will discuss with the nephrology regarding removal of dialysis catheter Dictation was produced using [employer] dictation software. please excuse any grammatical, word or spelling errors. Time with Patient: Less than 30
[2024-01-24] MEDS: ACETAMINOPHEN TAB 325 MG TAB PO PRN (15:04)
[2024-01-24 16:33] LABS: Glucose,Whole Blood 178 mg/dL (70-110)
[2024-01-24 19:59] LABS: Glucose,Whole Blood 137 mg/dL (70-110)
[2024-01-25 06:03] LABS: Glucose,Whole Blood 53 mg/dL (70-110)
[2024-01-25 06:29] LABS: Glucose,Whole Blood 87 mg/dL (70-110)
[2024-01-25 06:45] LABS: Basophils % (A) 0 %; Eosinophils # (A) 0.1 k/uL (0-0.7); Eosinophils % (A) 1 %; HCT 34.5 % (39.0-53.0); HGB 10.9 gm/dL (13.0-17.5); Lymphocytes # (A) 0.4 k/uL (1.0-4.8); Lymphocytes % (A) 5 %; MCH 28.6 pg (25.0-35.0); MCHC 31.6 g/dL (31.0-37.0); MCV 90.7 fL (80.0-100.0); Mean Platelet Volume 8.5; Monocytes # (A) 0.3 k/uL (0-1.0); Monocytes % (A) 4 %; Neutrophils % (A) 86 %; Platelet Count 100 k/uL (150-450); RBC 3.81 m/uL (4.30-5.90); RDW 14.1 % (11.5-15.5); WBC 8.1 k/uL (3.8-10.6)
[2024-01-25 06:59] LABS: Glucose,Whole Blood 108 mg/dL (70-110)
[2024-01-25 06:59] LABS: Glucose,Whole Blood 142 mg/dL (70-110)
[2024-01-25 06:59] LABS: Glucose,Whole Blood 91 mg/dL (70-110)
[2024-01-25 06:59] LABS: African American GFR (CKD) 13 (>60 ml/min/1.73 sqM); Anion Gap 10 mmol/L; Blood Urea Nitrogen 54 mg/dL (9-20); Calcium 8.4 mg/dL (8.4-10.2); Carbon Dioxide 23 mmol/L (22-30); Chloride 104 mmol/L (98-107); Glucose 82 mg/dL (74-99); Non-African American GFR(CKD) 11 (>60 ml/min/1.73 sqM); Potassium 3.4 mmol/L (3.5-5.1); Sodium 137 mmol/L (137-145)
[2024-01-25 07:04] LABS: Vancomycin,Random 22.6 ug/mL
[2024-01-25 11:12] LABS: Glucose,Whole Blood 83 mg/dL (70-110)
--- NOTE | 2024-01-25 13:03 | P.PN ---
Subjective Progress Note Date: 01/25/24 Principal diagnosis: Reason for follow-up is MRSA bacteremia Patient is a 63-year-old male with a past medical history significant for end-stage renal disease on hemodialysis through the right IJ permacatheter that has been placed February last year also with a history of diabetes mellitus hypertension patient has been sent to the ER from the dialysis center with the patient was noticed to have fever and apparently the port was not working, patient was started on cefepime vancomycin concerning for line related infection his blood culture subsequently came back positive with MRSA. On today's evaluation that is 01/25/2024, patient has been afebrile, patient is breathing comfortably and is currently on room air, patient denies having any significant cough no chest pain, patient denies nausea vomiting or diarrhea and no abdominal pain, no new symptoms. Patient white count normalized to 8.1, creatinine is 5.17 vancomycin level 22.6 blood culture with MRSA Objective - Vital Signs Vital signs: Vital Signs Temp 98.0 F 01/25/24 07:34 Pulse 78 01/25/24 11:13 Resp 16 01/25/24 11:13 BP 126/68 01/25/24 11:13 Pulse Ox 97 01/25/24 11:13 FiO2 Intake & Output 01/24/24 01/25/24 01/25/24 18:59 06:59 18:59 Intake Total 600 240 0 Balance 600 240 0 Weight 78.8 kg Intake: Oral 600 240 0 Other: # Bowel Movements 1 - Exam GENERAL DESCRIPTION: Middle-age male lying in bed in no distress RESPIRATORY SYSTEM: Unlabored breathing , decreased breath sounds at bases HEART: S1 S2 regular rate and rhythm , ABDOMEN: Soft , no tenderness EXTREMITIES: No edema feet - Labs CBC & Chem 7: 01/25/24 06:23 01/25/24 06:23 Labs: Abnormal Lab Results - Last 24 Hours (Table) 01/23/24 01/24/24 01/24/24 Range/Units 21:55 16:32 19:58 RBC (4.30-5.90) m/uL Hgb (13.0-17.5) gm/dL Hct (39.0-53.0) % Plt Count (150-450) k/uL Lymphocytes # (1.0-4.8) k/uL Potassium (3.5-5.1) mmol/L BUN (9-20) mg/dL Creatinine (0.66-1.25) mg/dL POC Glucose (mg/dL) 142 H 178 H 137 H (70-110) mg/dL 01/25/24 01/25/24 01/25/24 Range/Units 06:02 06:23 06:23 RBC 3.81 L (4.30-5.90) m/uL Hgb 10.9 L (13.0-17.5) gm/dL Hct 34.5 L (39.0-53.0) % Plt Count 100 L (150-450) k/uL Lymphocytes # 0.4 L (1.0-4.8) k/uL Potassium 3.4 L (3.5-5.1) mmol/L BUN 54 H (9-20) mg/dL Creatinine 5.17 H (0.66-1.25) mg/dL POC Glucose (mg/dL) 53 L (70-110) mg/dL Microbiology - Last 24 Hours (Table) 01/23/24 17:00 Blood Culture Gram Stain - Preliminary Blood Blood Culture - Preliminary Presumptive MRSA 01/23/24 12:40 Blood Culture Gram Stain - Preliminary Blood Blood Culture - Preliminary Presumptive MRSA Molecular ID 01/23/24 15:15 Urine Culture - Final Urine,Voided Assessment and Plan (1) Sepsis Current Visit: No Status: Acute Code(s): A41.9 - SEPSIS, UNSPECIFIED ORGANISM SNOMED Code(s): 39786877 Plan: 1patient presented to hospital with sepsis in this patient who did have fever tachycardia elevated white count source and likely dialysis catheter infection and the patient did have a negative chest x-ray no respiratory symptoms abdominal was soft rectal examination evidence of any cellulitis or joint swelling 2-blood culture coming back positive with MRSA source likely dialysis catheter infection, vascular surgery has been consulted for removal of the dialysis catheter tomorrow 3patient to continue the vancomycin, blood culture will be repeated after removal of his dialysis catheter and was those are negative for 72 hours he will be able to get a new dialysis catheter Dictation was produced using [employer] dictation software. please excuse any grammatical, word or spelling errors. Time with Patient: Less than 30
--- NOTE | 2024-01-25 14:22 | P.PN ---
Subjective Progress Note Date: 01/25/24 Patient is a 63-year-old male with a past medical history of end-stage renal disease, diabetes mellitus, gout who presents to the ED from dialysis because his dialysis access was not working. In the ED patient was given tPA through the dialysis catheter after which the dialysis catheter became patent. In the ED patient was found to have a fever of 102.3. Patient is denying fevers. However when I saw him he was having rigors. Patient does state that he makes urine. He denied dysuria. Patient denies cough. In the ED WBC 13.1. 4 Plex was negative. Chest x-ray negative for acute process. Patient was given 1 dose of Rocephin. Patient admitted to the medicine service for workup of his fever. Patient was started on IV vancomycin and cefepime. Patient's blood culture was positive for MRSA. Blood culture taken from the dialysis catheter was also positive for MRSA. IV cefepime was discontinued. Infectious disease recommended to remove the dialysis catheter. Vascular surgery consulted for removal of the dialysis catheter. Patient seen this morning. He denies any acute complaints. Family were at bedside. I updated them on the plan. 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 I reviewed both blood culture and also blood culture taken from dialysis catheter that are positive for MRSA. I discussed with infectious disease who is recommending to remove the dialysis catheter Vascular surgery consulted for removal of dialysis catheter Once dialysis catheter is removed then will obtain blood culture and if negative for 72 hours then patient can have new dialysis catheter placed [place] trough is 22.6 which is therapeutic range. WBC is 8.1 and has normalized ESRD Dialysis as per nephrology Patient had tPA administered through the permacath in the ED and permacath is now working. Diabetes mellitus Sliding scale insulin Blood glucose ranges from 53-1 78. Hemoglobin A1c is 6.8 Acute diarrhea likely due to lactose intolerant Avoid dairy products Imodium as needed I reviewed stool sample which was negative for C. difficile DVT prophylaxis: Subcu heparin Objective - Vital Signs Vital signs: Vital Signs Temp 98.2 F 01/25/24 12:48 Pulse 78 01/25/24 11:13 Resp 16 01/25/24 12:47 BP 116/70 01/25/24 12:47 Pulse Ox 97 01/25/24 11:13 FiO2 Intake & Output 01/24/24 01/25/24 01/25/24 18:59 06:59 18:59 Intake Total 503 933 3726 Output Total 900 Balance 600 240 223 Weight 78.8 kg Intake: Oral 600 240 223 Hemodialysis 900 Output: Hemodialysis 400 Hemodialysis Net Amount 500 Other: # Bowel Movements 1 - Labs CBC & Chem 7: 01/25/24 06:23 01/25/24 06:23 Labs: Abnormal Lab Results - Last 24 Hours (Table) 01/23/24 01/24/24 01/24/24 Range/Units 21:55 16:32 19:58 RBC (4.30-5.90) m/uL Hgb (13.0-17.5) gm/dL Hct (39.0-53.0) % Plt Count (150-450) k/uL Lymphocytes # (1.0-4.8) k/uL Potassium (3.5-5.1) mmol/L BUN (9-20) mg/dL Creatinine (0.66-1.25) mg/dL POC Glucose (mg/dL) 142 H 178 H 137 H (70-110) mg/dL 01/25/24 01/25/24 01/25/24 Range/Units 06:02 06:23 06:23 RBC 3.81 L (4.30-5.90) m/uL Hgb 10.9 L (13.0-17.5) gm/dL Hct 34.5 L (39.0-53.0) % Plt Count 100 L (150-450) k/uL Lymphocytes # 0.4 L (1.0-4.8) k/uL Potassium 3.4 L (3.5-5.1) mmol/L BUN 54 H (9-20) mg/dL Creatinine 5.17 H (0.66-1.25) mg/dL POC Glucose (mg/dL) 53 L (70-110) mg/dL Microbiology - Last 24 Hours (Table) 01/23/24 17:00 Blood Culture Gram Stain - Preliminary Blood Blood Culture - Preliminary Presumptive MRSA 01/23/24 12:40 Blood Culture Gram Stain - Preliminary Blood Blood Culture - Preliminary Presumptive MRSA Molecular ID 01/23/24 15:15 Urine Culture - Final Urine,Voided
--- NOTE | 2024-01-25 15:44 | P.PN ---
Subjective patient is seen for follow-up for end-stage renal disease. Seen on hemodialysis today. Tolerating treatment well. Blood cultures are growing MRSA Plans for removal of hemodialysis catheter. Discussed with vascular surgery. Objective - Vital Signs Vital signs: Vital Signs Temp 99.2 F 01/25/24 15:20 Pulse 87 01/25/24 15:20 Resp 16 01/25/24 15:20 BP 101/56 01/25/24 15:20 Pulse Ox 96 01/25/24 15:20 FiO2 Intake & Output 01/24/24 01/25/24 01/25/24 18:59 06:59 18:59 Intake Total 206 336 0846 Output Total 900 Balance 600 240 223 Weight 78.8 kg Intake: Oral 600 240 223 Hemodialysis 900 Output: Hemodialysis 400 Hemodialysis Net Amount 500 Other: # Bowel Movements 1 - Exam patient is awake, alert, no acute distress. Examination of the heart S1 and S2 Examination of the lungs bilateral breath sounds are heard Abdomen is soft nontender Examination of lower extremity shows no evidence of edema No tenderness noted at the site of the IJ permacath. 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 - Labs CBC & Chem 7: 01/25/24 06:23 01/25/24 06:23 Labs: Abnormal Lab Results - Last 24 Hours (Table) 01/23/24 01/24/24 01/24/24 Range/Units 21:55 16:32 19:58 RBC (4.30-5.90) m/uL Hgb (13.0-17.5) gm/dL Hct (39.0-53.0) % Plt Count (150-450) k/uL Lymphocytes # (1.0-4.8) k/uL Potassium (3.5-5.1) mmol/L BUN (9-20) mg/dL Creatinine (0.66-1.25) mg/dL POC Glucose (mg/dL) 142 H 178 H 137 H (70-110) mg/dL 01/25/24 01/25/24 01/25/24 Range/Units 06:02 06:23 06:23 RBC 3.81 L (4.30-5.90) m/uL Hgb 10.9 L (13.0-17.5) gm/dL Hct 34.5 L (39.0-53.0) % Plt Count 100 L (150-450) k/uL Lymphocytes # 0.4 L (1.0-4.8) k/uL Potassium 3.4 L (3.5-5.1) mmol/L BUN 54 H (9-20) mg/dL Creatinine 5.17 H (0.66-1.25) mg/dL POC Glucose (mg/dL) 53 L (70-110) mg/dL Microbiology - Last 24 Hours (Table) 01/23/24 17:00 Blood Culture Gram Stain - Preliminary Blood Blood Culture - Preliminary Presumptive MRSA 01/23/24 12:40 Blood Culture Gram Stain - Preliminary Blood Blood Culture - Preliminary Presumptive MRSA Molecular ID 01/23/24 15:15 Urine Culture - Final Urine,Voided Assessment and Plan Assessment: 1. End-stage renal disease maintained on hemodialysis on Sunday schedule. 2. Malfunctioning dialysis catheter status post cathflo and it is currently functional. 3. Staph aureus bacteremia, most likely catheter related 4. CK D mineral bone disorder maintained on PhosLo Plan: hemodialysis today Discontinue hemodialysis catheter after treatment today. If the dialysis catheter is not removed today we will plan for hemodialysis again in a.m. before discontinuation of catheter. Continue with antibiotics Continue with phosphate binders
[2024-01-25 16:11] LABS: Glucose,Whole Blood 243 mg/dL (70-110)
[2024-01-25 20:18] LABS: Glucose,Whole Blood 135 mg/dL (70-110)
--- NOTE | 2024-01-25 22:04 | OP ---
OPERATIVE REPORT DATE OF SERVICE : PREOPERATIVE DIAGNOSIS: Acute on chronic renal failure, infected dialysis catheter . POSTOPERATIVE DIAGNOSIS: Acute on chronic renal failure, infected dialysis catheter . PROCEDURE: Removal of dialysis catheter, right jugular approach. DESCRIPTION OF PROCEDURE: The right side of the neck and chest were prepped and drapes applied in a sterile manner. 1% lidocaine was infiltrated at the exit site of the catheter. Some small incision was made at the exit site of the catheter. Sheath was excised and catheter was removed. A pursestring suture was placed using a 3-0 Vicryl. Dressing applied. The patient tolerated the procedure well. The tip of the catheter was sent for culture. MMODL / IJN: [id number] /
--- NOTE | 2024-01-25 22:19 | CONS ---
CONSULTATION HISTORY OF PRESENT ILLNESS: This is a 63-year-old gentleman. I have seen him in the past for placement of dialysis catheter. The patient's catheter infected with . I was consulted for placement of dialysis catheter. The patient has history of chronic renal failure, on dialysis. PHYSICAL EXAMINATION: NECK: Supple. Trachea central. The patient had dialysis catheter right IJ approach. CHEST: Clear. ABDOMEN: Soft, nontender. EXTREMITIES: Femorals are 1+ bilateral. PLAN: Removal of the dialysis catheter. Risks and complications discussed. MMODL / IJN: [id number] /
[2024-01-26 06:14] LABS: Glucose,Whole Blood 177 mg/dL (70-110)
[2024-01-26 09:52] LABS: Basophils % (A) 0 %; Eosinophils # (A) 0.1 k/uL (0-0.7); Eosinophils % (A) 1 %; HCT 32.3 % (39.0-53.0); HGB 10.3 gm/dL (13.0-17.5); Hypochromasia Slight; Lymphocytes # (A) 0.4 k/uL (1.0-4.8); Lymphocytes % (A) 7 %; MCH 29.2 pg (25.0-35.0); MCHC 32.1 g/dL (31.0-37.0); Mean Platelet Volume 9.1; Monocytes # (A) 0.3 k/uL (0-1.0); Monocytes % (A) 5 %; Neutrophils # (A) 5.7 k/uL (1.3-7.7); Neutrophils % (A) 83 %; RBC 3.54 m/uL (4.30-5.90); RDW 14.2 % (11.5-15.5); WBC 6.8 k/uL (3.8-10.6)
[2024-01-26 09:57] LABS: Platelet Count 95 k/uL (150-450)
[2024-01-26 10:06] LABS: African American GFR (CKD) 18 (>60 ml/min/1.73 sqM); Anion Gap 8 mmol/L; Blood Urea Nitrogen 42 mg/dL (9-20); Calcium 8.4 mg/dL (8.4-10.2); Carbon Dioxide 27 mmol/L (22-30); Chloride 101 mmol/L (98-107); Glucose 183 mg/dL (74-99); Non-African American GFR(CKD) 16 (>60 ml/min/1.73 sqM); Potassium 3.5 mmol/L (3.5-5.1); Sodium 136 mmol/L (137-145)
[2024-01-26 11:03] LABS: Vancomycin,Random 15.4 ug/mL
[2024-01-26 11:49] LABS: Glucose,Whole Blood 187 mg/dL (70-110)
--- NOTE | 2024-01-26 11:55 | P.PN ---
Subjective patient is seen for follow-up for end-stage renal disease. Status post hemodialysis on 01/25/2024 Blood cultures are growing MRSA. Hemodialysis catheter has been removed. No significant complaints today. Objective - Vital Signs Vital signs: Vital Signs Temp 98.1 F 01/26/24 08:00 Pulse 82 01/26/24 08:00 Resp 20 01/26/24 08:00 BP 105/70 01/26/24 08:00 Pulse Ox 95 01/26/24 08:00 FiO2 Intake & Output 01/25/24 01/26/24 01/26/24 18:59 06:59 18:59 Intake Total 1363 240 Output Total 900 Balance 463 240 Weight 79.6 kg Intake: Oral 463 240 Hemodialysis 900 Output: Hemodialysis 400 Hemodialysis Net Amount 500 Other: # Voids 1 2 # Bowel Movements 1 1 - Exam patient is awake, alert, no acute distress. Examination of the heart S1 and S2 Examination of the lungs bilateral breath sounds are heard Abdomen is soft nontender Examination of lower extremity shows no evidence of edema No tenderness noted at the site of the IJ permacath. CODE OFFICIAL exam grossly intact - Labs CBC & Chem 7: 01/26/24 09:22 01/26/24 09:22 Labs: Abnormal Lab Results - Last 24 Hours (Table) 01/25/24 01/25/24 01/26/24 Range/Units 16:10 20:17 06:12 RBC (4.30-5.90) m/uL Hgb (13.0-17.5) gm/dL Hct (39.0-53.0) % Plt Count (150-450) k/uL Lymphocytes # (1.0-4.8) k/uL Sodium (137-145) mmol/L BUN (9-20) mg/dL Creatinine (0.66-1.25) mg/dL Glucose (74-99) mg/dL POC Glucose (mg/dL) 243 H 135 H 177 H (70-110) mg/dL 01/26/24 01/26/24 Range/Units 09:22 09:22 RBC 3.54 L (4.30-5.90) m/uL Hgb 10.3 L (13.0-17.5) gm/dL Hct 32.3 L (39.0-53.0) % Plt Count 95 L (150-450) k/uL Lymphocytes # 0.4 L (1.0-4.8) k/uL Sodium 136 L (137-145) mmol/L BUN 42 H (9-20) mg/dL Creatinine 3.79 H (0.66-1.25) mg/dL Glucose 183 H (74-99) mg/dL POC Glucose (mg/dL) (70-110) mg/dL Microbiology - Last 24 Hours (Table) 01/23/24 17:00 Blood Culture Gram Stain - Preliminary Blood Blood Culture - Preliminary Presumptive MRSA 01/23/24 12:40 Blood Culture Gram Stain - Preliminary Blood Blood Culture - Preliminary Presumptive MRSA Molecular ID Assessment and Plan Assessment: 1. End-stage renal disease maintained on hemodialysis on Sunday schedule. 2. Malfunctioning dialysis catheter status post cathflo and it is currently functional. 3. Staph aureus bacteremia, most likely catheter related. Hemodialysis catheter was removed on 01/25/2024 4. CK D mineral bone disorder maintained on PhosLo Plan: continue to assess daily for need for dialysis. Continue with antibiotics Continue with phosphate binders
--- NOTE | 2024-01-26 13:51 | P.PN ---
Subjective Progress Note Date: 01/26/24 Principal diagnosis: Reason for follow-up is MRSA bacteremia Patient is a 63-year-old male with a past medical history significant for end-stage renal disease on hemodialysis through the right IJ permacatheter that has been placed February last year also with a history of diabetes mellitus hypertension patient has been sent to the ER from the dialysis center with the patient was noticed to have fever and apparently the port was not working, patient was started on cefepime vancomycin concerning for line related infection his blood culture subsequently came back positive with MRSA. On today's evaluation that is 01/26/2024, Patient is afebrile this morning patient denies having any chest pain shortness of breath or cough, the patient is currently on room air, patient denies any abdominal pain no diarrhea no nausea no vomiting. Patient white count 6.8, creatinine 3.79 Vanco random is 15.4 blood culture from 01/24 positive Objective - Vital Signs Vital signs: Vital Signs Temp 98.1 F 01/26/24 12:14 Pulse 69 01/26/24 12:14 Resp 16 01/26/24 12:14 BP 124/63 01/26/24 12:14 Pulse Ox 98 01/26/24 12:14 FiO2 Intake & Output 01/25/24 01/26/24 01/26/24 18:59 06:59 18:59 Intake Total 1363 240 Output Total 900 Balance 463 240 Weight 79.6 kg Intake: Oral 463 240 Hemodialysis 900 Output: Hemodialysis 400 Hemodialysis Net Amount 500 Other: # Voids 1 2 # Bowel Movements 1 1 - Exam GENERAL DESCRIPTION: Middle-age male lying in bed in no distress RESPIRATORY SYSTEM: Unlabored breathing , decreased breath sounds at bases HEART: S1 S2 regular rate and rhythm , ABDOMEN: Soft , no tenderness EXTREMITIES: No edema feet - Labs CBC & Chem 7: 01/26/24 09:22 01/26/24 09:22 Labs: Abnormal Lab Results - Last 24 Hours (Table) 01/25/24 01/25/24 01/26/24 Range/Units 16:10 20:17 06:12 RBC (4.30-5.90) m/uL Hgb (13.0-17.5) gm/dL Hct (39.0-53.0) % Plt Count (150-450) k/uL Lymphocytes # (1.0-4.8) k/uL Sodium (137-145) mmol/L BUN (9-20) mg/dL Creatinine (0.66-1.25) mg/dL Glucose (74-99) mg/dL POC Glucose (mg/dL) 243 H 135 H 177 H (70-110) mg/dL 01/26/24 01/26/24 01/26/24 Range/Units 09:22 09:22 11:48 RBC 3.54 L (4.30-5.90) m/uL Hgb 10.3 L (13.0-17.5) gm/dL Hct 32.3 L (39.0-53.0) % Plt Count 95 L (150-450) k/uL Lymphocytes # 0.4 L (1.0-4.8) k/uL Sodium 136 L (137-145) mmol/L BUN 42 H (9-20) mg/dL Creatinine 3.79 H (0.66-1.25) mg/dL Glucose 183 H (74-99) mg/dL POC Glucose (mg/dL) 187 H (70-110) mg/dL Microbiology - Last 24 Hours (Table) 01/25/24 09:54 Blood Culture Gram Stain - Preliminary Blood Assessment and Plan (1) Sepsis Current Visit: No Status: Acute Code(s): A41.9 - SEPSIS, UNSPECIFIED ORGANISM SNOMED Code(s): 04781564 Plan: 1patient presented to hospital with sepsis in this patient who did have fever tachycardia elevated white count source and likely dialysis catheter infection and the patient did have a negative chest x-ray no respiratory symptoms abdominal was soft rectal examination evidence of any cellulitis or joint swelling 2-blood culture coming back positive with MRSA source likely dialysis catheter infection, patient did have removal of his dialysis catheter 3patient to continue the vancomycin, blood culture will be repeated today to make sure he has cleared his bacteremia before clearing him for another permacatheter Dictation was produced using [employer] dictation software. please excuse any gramm atical, word or spelling errors. Time with Patient: Less than 30
[2024-01-26] MEDS: VANCOMYCIN 1,250 MG in SODIUM CHLORIDE 0.9% 250 ML IVPB ONE (14:33)
[2024-01-26 16:31] LABS: Glucose,Whole Blood 208 mg/dL (70-110)
--- NOTE | 2024-01-26 18:25 | P.PN ---
Subjective Progress Note Date: 01/26/24 This 63-year-old male with history of end-stage renal disease, diabetes, gout who presented with a malfunctioning dialysis catheter. In emergency room patient received tPA and his dialysis catheter became patent. The patient was then noted to be febrile 102.3. He had a WBC of 13.1. He was given 1 g of Rocephin. Patient was started on IV vancomycin and cefepime. Blood cultures were positive for MRSA the dialysis catheter culture was also positive for MRSA. Infectious disease recommended removal of dialysis catheter and his cefepime was discontinued. Objective - Vital Signs Vital signs: Vital Signs Temp 98.1 F 01/26/24 12:14 Pulse 88 01/26/24 17:16 Resp 18 01/26/24 17:16 BP 123/57 01/26/24 17:16 Pulse Ox 98 01/26/24 17:16 FiO2 Intake & Output 01/25/24 01/26/24 01/26/24 18:59 06:59 18:59 Intake Total 1363 240 Output Total 900 Balance 463 240 Weight 79.6 kg Intake: Oral 463 240 Hemodialysis 900 Output: Hemodialysis 400 Hemodialysis Net Amount 500 Other: # Voids 1 2 1 # Bowel Movements 1 1 - Constitutional General appearance: Present: no acute distress - Respiratory Respiratory: bilateral: diminished - Cardiovascular Rhythm: regular - Gastrointestinal General gastrointestinal: Present: normal bowel sounds - Integumentary Integumentary: Present: normal - Labs CBC & Chem 7: 01/26/24 09:22 01/26/24 09:22 Labs: Abnormal Lab Results - Last 24 Hours (Table) 01/25/24 01/26/24 01/26/24 Range/Units 20:17 06:12 09:22 RBC (4.30-5.90) m/uL Hgb (13.0-17.5) gm/dL Hct (39.0-53.0) % Plt Count (150-450) k/uL Lymphocytes # (1.0-4.8) k/uL Sodium 136 L (137-145) mmol/L BUN 42 H (9-20) mg/dL Creatinine 3.79 H (0.66-1.25) mg/dL Glucose 183 H (74-99) mg/dL POC Glucose (mg/dL) 135 H 177 H (70-110) mg/dL 01/26/24 01/26/24 01/26/24 Range/Units 09:22 11:48 16:29 RBC 3.54 L (4.30-5.90) m/uL Hgb 10.3 L (13.0-17.5) gm/dL Hct 32.3 L (39.0-53.0) % Plt Count 95 L (150-450) k/uL Lymphocytes # 0.4 L (1.0-4.8) k/uL Sodium (137-145) mmol/L BUN (9-20) mg/dL Creatinine (0.66-1.25) mg/dL Glucose (74-99) mg/dL POC Glucose (mg/dL) 187 H 208 H (70-110) mg/dL Microbiology - Last 24 Hours (Table) 01/23/24 17:00 Blood Culture Gram Stain - Final Blood Blood Culture - Final Methicillin resist S. aureus 01/23/24 12:40 Blood Culture Gram Stain - Final Blood Blood Culture - Final Methicillin resist S. aureus Molecular ID 01/25/24 09:54 Blood Culture Gram Stain - Preliminary Blood Assessment and Plan (1) Sepsis Narrative/Plan: On arrival secondary to infected dialysis catheter. The patient is currently on vancomycin. His catheter has since been removed. Cultures from 10/positive. Appreciate infectious disease input. Patient will need to clear cultures before new catheter being reinserted Current Visit: No Status: Acute Code(s): A41.9 - SEPSIS, UNSPECIFIED ORGANISM SNOMED Code(s): 70391244 (2) ESRD (end stage renal disease) on dialysis Narrative/Plan: Continue per nephrology Current Visit: Yes Status: Acute Code(s): N18.6 - END STAGE RENAL DISEASE; Z99.2 - DEPENDENCE ON RENAL DIALYSIS SNOMED Code(s): 789391350 Plan: Continue treatment for MRSA septicemia, continue to check blood cultures until evidence of clearance
[2024-01-26 20:08] LABS: Glucose,Whole Blood 253 mg/dL (70-110)
[2024-01-27 06:23] LABS: Glucose,Whole Blood 135 mg/dL (70-110)
[2024-01-27 06:24] LABS: African American GFR (CKD) 14 (>60 ml/min/1.73 sqM); Anion Gap 9 mmol/L; Blood Urea Nitrogen 54 mg/dL (9-20); Calcium 8.4 mg/dL (8.4-10.2); Carbon Dioxide 24 mmol/L (22-30); Chloride 102 mmol/L (98-107); Glucose 144 mg/dL (74-99); Non-African American GFR(CKD) 13 (>60 ml/min/1.73 sqM); Potassium 3.7 mmol/L (3.5-5.1); Sodium 135 mmol/L (137-145)
--- NOTE | 2024-01-27 11:23 | P.PN ---
Subjective patient is seen for follow-up for end-stage renal disease. Status post hemodialysis on 01/25/2024 Blood cultures are growing MRSA and hemodialysis catheter was removed on 01/25/2024 No significant complaints today. Objective - Vital Signs Vital signs: Vital Signs Temp 98 F 01/27/24 08:54 Pulse 78 01/27/24 08:54 Resp 16 01/27/24 08:54 BP 131/76 01/27/24 08:54 Pulse Ox 96 01/27/24 08:54 FiO2 Intake & Output 01/26/24 01/27/24 01/27/24 18:59 06:59 18:59 Intake Total 0 Balance 0 Weight 79.4 kg Intake: Oral 0 Other: Voiding Method Toilet Toilet # Voids 1 3 - Exam patient is awake, alert, no acute distress. Examination of the heart S1 and S2 Examination of the lungs bilateral breath sounds are heard Abdomen is soft nontender Examination of lower extremity shows no evidence of edema No tenderness noted at the site of the IJ permacath. MASTER PLANNER exam grossly intact - Labs CBC & Chem 7: 01/26/24 09:22 01/27/24 05:44 Labs: Abnormal Lab Results - Last 24 Hours (Table) 01/26/24 01/26/24 01/26/24 Range/Units 11:48 16:29 20:06 Sodium (137-145) mmol/L BUN (9-20) mg/dL Creatinine (0.66-1.25) mg/dL Glucose (74-99) mg/dL POC Glucose (mg/dL) 187 H 208 H 253 H (70-110) mg/dL 01/27/24 01/27/24 Range/Units 05:44 06:21 Sodium 135 L (137-145) mmol/L BUN 54 H (9-20) mg/dL Creatinine 4.63 H (0.66-1.25) mg/dL Glucose 144 H (74-99) mg/dL POC Glucose (mg/dL) 135 H (70-110) mg/dL Microbiology - Last 24 Hours (Table) 01/25/24 16:06 Catheter Tip Culture - Preliminary Catheter Tip Presumptive MRSA 01/23/24 17:00 Blood Culture Gram Stain - Final Blood Blood Culture - Final Methicillin resist S. aureus 01/23/24 12:40 Blood Culture Gram Stain - Final Blood Blood Culture - Final Methicillin resist S. aureus Molecular ID 01/25/24 09:54 Blood Culture Gram Stain - Preliminary Blood Assessment and Plan Assessment: 1. End-stage renal disease maintained on hemodialysis on Sunday schedule. 2. Malfunctioning dialysis catheter status post cathflo and subsequent removal of catheter on 01/25/2024 due to MRSA bacteremia 3. MRSA bacteremia, most likely catheter related. Hemodialysis catheter was re moved on 01/25/2024 4. CK D mineral bone disorder maintained on PhosLo Plan: continue to assess daily for need for dialysis. Continue with antibiotics Continue with phosphate binders repeat blood cultures
[2024-01-27 11:47] LABS: Glucose,Whole Blood 232 mg/dL (70-110)
[2024-01-27 16:29] LABS: Glucose,Whole Blood 216 mg/dL (70-110)
--- NOTE | 2024-01-27 18:08 | P.PN ---
Subjective Progress Note Date: 01/27/24 (delayed charting seen at 1115) Patient seen and examined at bedside. He denies any complaints. Is unsure if he continues to need dialysis. Denies any nausea, vomiting, or diarrhea. Vital signs reviewed General: Nontoxic, no distress, appears at stated age Cardiovascular: S1S2 reg, no murmur Lungs: Coarse breath sounds bilateral, no accessory muscle use Abdominal: Soft, nontender to palpation, no guarding Ext: No gross muscle atrophy, trace edema b/l lower extremities, no contractures Neuro: CN II-XI grossly intact, no focal neuro deficits Psych: Alert, oriented, appropriate affect Assessment/Plan: MRSA bacteremia secondary to infected hemodialysis catheter with sepsis on arrival ESRD on HD -Currently on line holiday with HD line removed -Await further infectious disease recommendations -Continue vancomycin IVPB with close monitoring of trough and creatinine for signs of toxicity -Case discussed with Dr. Simon. Continue line holiday. -Hemodialysis catheter was nonfunctioning on admission and Cathflo was given Thrombocytopenia improving, anemia -Follow CBC -No indication for transfusion at this time DM2 with hyperglycemia -A1c 6.8 -Sliding scale insulin - hold prandin HTN -Metoprolol 50 mg twice daily Acute diarrhea, resolved Imaging: None new Data Review: BMP reviewed from today remarkable for BUN 54, creatinine 4.63 -Blood sugars elevated to 216. Cath tip with MRSA, blood cultures on 01/24 shows presumptive MRSA DVT prophylaxis: Heparin subcu Anticipated discharge date: Pending clinical course Anticipated discharge place: Pending clinical course This dictation was prepared using [employer] voice recognition software. Though every attempt is made to correct errors during dictation some may still exist. Objective - Vital Signs Vital signs: Vital Signs Temp 97.9 F 01/27/24 16:00 Pulse 75 01/27/24 16:00 Resp 16 01/27/24 16:00 BP 125/64 01/27/24 16:00 Pulse Ox 98 01/27/24 16:00 FiO2 Intake & Output 01/26/24 01/27/24 01/27/24 18:59 06:59 18:59 Intake Total 0 Balance 0 Weight 79.4 kg Intake: Oral 0 Other: Voiding Method Toilet Toilet # Voids 1 3 2 # Bowel Movements 1 - Labs CBC & Chem 7: 01/26/24 09:22 01/27/24 05:44 Labs: Abnormal Lab Results - Last 24 Hours (Table) 01/26/24 01/27/24 01/27/24 Range/Units 20:06 05:44 06:21 Sodium 135 L (137-145) mmol/L BUN 54 H (9-20) mg/dL Creatinine 4.63 H (0.66-1.25) mg/dL Glucose 144 H (74-99) mg/dL POC Glucose (mg/dL) 253 H 135 H (70-110) mg/dL 01/27/24 01/27/24 Range/Units 11:46 16:28 Sodium (137-145) mmol/L BUN (9-20) mg/dL Creatinine (0.66-1.25) mg/dL Glucose (74-99) mg/dL POC Glucose (mg/dL) 232 H 216 H (70-110) mg/dL Microbiology - Last 24 Hours (Table) 01/25/24 09:54 Blood Culture Gram Stain - Preliminary Blood Blood Culture - Preliminary Presumptive MRSA 01/25/24 16:06 Catheter Tip Culture - Preliminary Catheter Tip Presumptive MRSA 01/23/24 17:00 Blood Culture Gram Stain - Final Blood Blood Culture - Final Methicillin resist S. aureus 01/23/24 12:40 Blood Culture Gram Stain - Final Blood Blood Culture - Final Methicillin resist S. aureus Molecular ID
[2024-01-27 20:21] LABS: Glucose,Whole Blood 216 mg/dL (70-110)
--- NOTE | 2024-01-27 22:02 | P.PN ---
Subjective Progress Note Date: 01/27/24 Principal diagnosis: Reason for follow-up is MRSA bacteremia Patient is a 63-year-old male with a past medical history significant for end-stage renal disease on hemodialysis through the right IJ permacatheter that has been placed February last year also with a history of diabetes mellitus hypertension patient has been sent to the ER from the dialysis center with the patient was noticed to have fever and apparently the port was not working, patient was started on cefepime vancomycin concerning for line related infection his blood culture subsequently came back positive with MRSA. On today's evaluation that is 01/27/2024,the patient denies any fever or any chills, patient is breathing comfortably on room air, the patient denies chest pain shortness of breath and no significant cough, patient denies abdominal pain, no nausea vomiting or diarrhea.. Patient did have a creatinine 4.63 catheter tip and blood culture from 01/25/2024 positive Objective - Vital Signs Vital signs: Vital Signs Temp 97.9 F 01/27/24 16:00 Pulse 75 01/27/24 16:00 Resp 16 01/27/24 16:00 BP 125/64 01/27/24 16:00 Pulse Ox 98 01/27/24 16:00 FiO2 Intake & Output 01/26/24 01/27/24 01/27/24 18:59 06:59 18:59 Intake Total 0 Balance 0 Weight 79.4 kg Intake: Oral 0 Other: Voiding Method Toilet Toilet # Voids 1 3 2 # Bowel Movements 1 - Exam GENERAL DESCRIPTION: Middle-age male lying in bed in no distress RESPIRATORY SYSTEM: Unlabored breathing , decreased breath sounds at bases HEART: S1 S2 regular rate and rhythm , ABDOMEN: Soft , no tenderness EXTREMITIES: No edema feet - Labs CBC & Chem 7: 01/26/24 09:22 01/27/24 05:44 Labs: Abnormal Lab Results - Last 24 Hours (Table) 01/26/24 01/27/24 01/27/24 Range/Units 20:06 05:44 06:21 Sodium 135 L (137-145) mmol/L BUN 54 H (9-20) mg/dL Creatinine 4.63 H (0.66-1.25) mg/dL Glucose 144 H (74-99) mg/dL POC Glucose (mg/dL) 253 H 135 H (70-110) mg/dL 01/27/24 01/27/24 Range/Units 11:46 16:28 Sodium (137-145) mmol/L BUN (9-20) mg/dL Creatinine (0.66-1.25) mg/dL Glucose (74-99) mg/dL POC Glucose (mg/dL) 232 H 216 H (70-110) mg/dL Microbiology - Last 24 Hours (Table) 01/25/24 09:54 Blood Culture Gram Stain - Preliminary Blood Blood Culture - Preliminary Presumptive MRSA 01/25/24 16:06 Catheter Tip Culture - Preliminary Catheter Tip Presumptive MRSA 01/23/24 17:00 Blood Culture Gram Stain - Final Blood Blood Culture - Final Methicillin resist S. aureus 01/23/24 12:40 Blood Culture Gram Stain - Final Blood Blood Culture - Final Methicillin resist S. aureus Molecular ID Assessment and Plan (1) Sepsis Current Visit: No Status: Acute Code(s): A41.9 - SEPSIS, UNSPECIFIED ORGANISM SNOMED Code(s): 59514431 Plan: 1patient presented to hospital with sepsis in this patient who did have fever tachycardia elevated white count source and likely dialysis catheter infection and the patient did have a negative chest x-ray no respiratory symptoms abdominal was soft rectal examination evidence of any cellulitis or joint swelling 2-blood culture coming back positive with MRSA source likely dialysis catheter infection, patient did have removal of his dialysis catheter on 01/25/2024 3patient blood culture from 01/25/2024 positive blood culture from 01/26/2024 currently pending and blood culture has been repeated today. Once blood culture negative at 72 hours he will be able to get a new permacatheter for now continue with the vancomycin Dictation was produced using [employer] dictation software. please excuse any grammatical, word or spelling errors. Time with Patient: Less than 30
[2024-01-28 06:35] LABS: Glucose,Whole Blood 200 mg/dL (70-110)
--- NOTE | 2024-01-28 09:44 | P.PN ---
Subjective Patient is seen in follow-up for end-stage renal disease. He is maintained on hemodialysis on Sunday schedule. Currently having breakfast. No active complaints. Morning labs pending. Vital signs are stable. General: No acute distress. HEENT: Head exam is unremarkable. LUNGS: No audible rhonchi or wheezes. HEART: Rate and Rhythm are regular. ABDOMEN: Nontender. EXTREMITITES: No edema. Objective - Vital Signs Vital signs: Vital Signs Temp 98.5 F 01/28/24 08:00 Pulse 77 01/28/24 08:00 Resp 18 01/28/24 08:00 BP 127/73 01/28/24 08:00 Pulse Ox 97 01/28/24 08:00 FiO2 Intake & Output 01/27/24 01/28/24 01/28/24 18:59 06:59 18:59 Weight 79.4 kg Other: Voiding Method Toilet Toilet # Voids 2 1 # Bowel Movements 1 - Labs CBC & Chem 7: 01/26/24 09:22 01/27/24 05:44 Labs: Abnormal Lab Results - Last 24 Hours (Table) 01/27/24 01/27/24 01/27/24 Range/Units 11:46 16:28 20:20 POC Glucose (mg/dL) 232 H 216 H 216 H (70-110) mg/dL 01/28/24 Range/Units 06:34 POC Glucose (mg/dL) 200 H (70-110) mg/dL Microbiology - Last 24 Hours (Table) 01/25/24 09:54 Blood Culture Gram Stain - Preliminary Blood Blood Culture - Preliminary Presumptive MRSA 01/25/24 16:06 Catheter Tip Culture - Final Catheter Tip Methicillin resist S. aureus Assessment and Plan Plan: Assessment: 1. End-stage renal disease maintained on hemodialysis on Sunday schedule. 2. MRSA bacteremia status post removal of permacath January 25, 2024. Catheter tip positive for MRSA. On IV antibiotics. ID following. 3. Chronic kidney disease mineral bone disease maintained on PhosLo. Plan: Continue to check daily labs to monitor electrolytes closely. Await ID clearance for permacath placement. Monitor vancomycin levels. Dose to be adjusted for renal function. DC IV fluids. DC Motrin.
[2024-01-28 10:13] LABS: African American GFR (CKD) 11 (>60 ml/min/1.73 sqM); Anion Gap 10 mmol/L; Blood Urea Nitrogen 68 mg/dL (9-20); Calcium 8.4 mg/dL (8.4-10.2); Carbon Dioxide 23 mmol/L (22-30); Chloride 103 mmol/L (98-107); Glucose 185 mg/dL (74-99); Non-African American GFR(CKD) 10 (>60 ml/min/1.73 sqM); Sodium 136 mmol/L (137-145)
[2024-01-28 11:45] LABS: Glucose,Whole Blood 302 mg/dL (70-110)
--- NOTE | 2024-01-28 12:41 | P.PN ---
Subjective Progress Note Date: 01/28/24 Principal diagnosis: Reason for follow-up is MRSA bacteremia Patient is a 63-year-old male with a past medical history significant for end-stage renal disease on hemodialysis through the right IJ permacatheter that has been placed February last year also with a history of diabetes mellitus hypertension patient has been sent to the ER from the dialysis center with the patient was noticed to have fever and apparently the port was not working, patient was started on cefepime vancomycin concerning for line related infection his blood culture subsequently came back positive with MRSA. On today's evaluation that is 01/28/2024,the patient remains to be afebrile, patient is on room air not requiring supplemental oxygen and denies any shortness of breath no chest pain or cough.Patient denies having any nausea or vomiting, no abdominal pain and no diarrhea has been reported. Patient creatinine is 5.63 blood cultures from 01/26/2024 as well as 01/27/2024 are pending Objective - Vital Signs Vital signs: Vital Signs Temp 98.5 F 01/28/24 08:00 Pulse 77 01/28/24 08:00 Resp 18 01/28/24 08:00 BP 127/73 01/28/24 08:00 Pulse Ox 97 01/28/24 08:00 FiO2 Intake & Output 01/27/24 01/28/24 01/28/24 18:59 06:59 18:59 Weight 79.4 kg Other: Voiding Method Toilet Toilet # Voids 2 1 # Bowel Movements 1 - Exam GENERAL DESCRIPTION: Middle-age male lying in bed in no distress RESPIRATORY SYSTEM: Unlabored breathing , decreased breath sounds at bases HEART: S1 S2 regular rate and rhythm , ABDOMEN: Soft , no tenderness EXTREMITIES: No edema feet - Labs CBC & Chem 7: 01/26/24 09:22 01/28/24 06:52 Labs: Abnormal Lab Results - Last 24 Hours (Table) 01/27/24 01/27/24 01/27/24 Range/Units 11:46 16:28 20:20 Sodium (137-145) mmol/L BUN (9-20) mg/dL Creatinine (0.66-1.25) mg/dL Glucose (74-99) mg/dL POC Glucose (mg/dL) 232 H 216 H 216 H (70-110) mg/dL 01/28/24 01/28/24 Range/Units 06:34 06:52 Sodium 136 L (137-145) mmol/L BUN 68 H (9-20) mg/dL Creatinine 5.63 H (0.66-1.25) mg/dL Glucose 185 H (74-99) mg/dL POC Glucose (mg/dL) 200 H (70-110) mg/dL Microbiology - Last 24 Hours (Table) 01/25/24 09:54 Blood Culture Gram Stain - Preliminary Blood Blood Culture - Preliminary Presumptive MRSA 01/25/24 16:06 Catheter Tip Culture - Final Catheter Tip Methicillin resist S. aureus Assessment and Plan (1) Sepsis Current Visit: No Status: Acute Code(s): A41.9 - SEPSIS, UNSPECIFIED ORGANISM SNOMED Code(s): 56814607 Plan: 1patient presented to hospital with sepsis in this patient who did have fever tachycardia elevated white count source and likely dialysis catheter infection and the patient did have a negative chest x-ray no respiratory symptoms abdominal was soft rectal examination evidence of any cellulitis or joint swelling 2-blood culture coming back positive with MRSA source likely dialysis catheter infection, patient did have removal of his dialysis catheter on 01/25/2024 3patient blood culture from 01/25/2024 positive, however blood culture from 01/26/2024 as well as 01/27/2024 or so far pending, once blood culture from 01/26/2024 negative at 72 hours he will be able to get a new permacatheter for now continue with the vancomycin Dictation was produced using [employer] dictation software. please excuse any grammatical, word or spelling errors. Time with Patient: Less than 30
--- NOTE | 2024-01-28 15:08 | P.PN ---
Subjective Progress Note Date: 01/28/24 63-year-old M with PMH of ESRD, diabetes mellitus, gout who presents to the ED from dialysis because his dialysis access was not working. In the ED patient was given tPA through the dialysis catheter after which the dialysis catheter became patent. In the ED patient was found to have a fever of 102.3. BP 133/77, RR 20, HR 113, 98% on RA. CBC, CMP significant for WBC 13.1, RBC 4.03, Hg 11.7, Hct 35.5, Plt 113, Na 132, Cl 97, bicarb 19, BUN 62, Cr 6.13, glu 248. Lactic acid 1.1. T. Bili 2.1. UA moderate LE. COVID, RSV, Flu negative. C. diff negative. CXR negative. Started on Vancomycin and Cefepim and admitted for further workup and management. BCx MRSA. HD catheter removed and also MRSA positive. 01/27 Patient was seen and examined. Vanc trough 20.8. Maintained on Vancomycin dosed per pharmacy. Repeat BCx negative so far. BMP significant for Na 136, BUN 68, Cr 5.65, glu 185. General: non toxic, no distress, appears at stated age Derm: warm, dry Head: atraumatic, normocephalic, symmetric Eyes: EOMI, no lid lag, anicteric sclera Mouth: no lip lesion, mucus membranes moist Cardiovascular: S1S2 reg, no murmur Lungs: CTA bilateral, no rhonchi, no rales, no accessory muscle use Ext: no gross muscle atrophy, no edema, no contractures Neuro: no focal neuro deficits Psych: Alert, oriented, appropriate affect Based on my assessment of this patient, this patient meets a high complexity le amber of care. MRSA bacteremia secondary to infected hemodialysis catheter with sepsis on arrival: Vancomycin dosed per pharmacy. Monitor renal function while on Vancomycin. ID on board. Repeat BCx 01/26 negative at 24H. ESRD on HD: Nephrology consulted. Plans for permacath when bacteremia cleared. 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 ISS. Accuchecks ACHS. Hypoglycemic precautions. HTN: Metoprolol 50 mg PO BID CODE STATUS: FULL CODE DVT Prophylaxis: SCD GI Prophylaxis: Designated medical POA if patient is not able to make medical decisions for themselves: I have reviewed the following apartment leasing consultant notes: Nephrology, ID I have reviewed the results of the following tests: Vanc trough. BMP. Repeat BCx I have ordered the following tests: I have discussed the care of this patient with the following independent historian: I have independently interpreted the following test below: I have discussed the management of this patient with the following physician: Objective - Vital Signs Vital signs: Vital Signs Temp 98.4 F 01/28/24 03:08 Pulse 85 01/28/24 03:08 Resp 18 01/28/24 03:08 BP 116/72 01/28/24 03:08 Pulse Ox 97 01/28/24 03:08 FiO2 Intake & Output 01/27/24 01/28/24 01/28/24 18:59 06:59 18:59 Weight 79.4 kg Other: Voiding Method Toilet Toilet # Voids 2 1 # Bowel Movements 1 - Labs CBC & Chem 7: 01/26/24 09:22 01/28/24 06:52 Labs: Abnormal Lab Results - Last 24 Hours (Table) 01/27/24 01/27/24 01/27/24 Range/Units 11:46 16:28 20:20 POC Glucose (mg/dL) 232 H 216 H 216 H (70-110) mg/dL 01/28/24 Range/Units 06:34 POC Glucose (mg/dL) 200 H (70-110) mg/dL Microbiology - Last 24 Hours (Table) 01/25/24 09:54 Blood Culture Gram Stain - Preliminary Blood Blood Culture - Preliminary Presumptive MRSA 01/25/24 16:06 Catheter Tip Culture - Final Catheter Tip Methicillin resist S. aureus
[2024-01-28 16:23] LABS: Glucose,Whole Blood 209 mg/dL (70-110)
[2024-01-28 20:24] LABS: Glucose,Whole Blood 176 mg/dL (70-110)
[2024-01-29 05:52] LABS: Glucose,Whole Blood 142 mg/dL (70-110)
[2024-01-29 07:39] LABS: African American GFR (CKD) 11 (>60 ml/min/1.73 sqM); Anion Gap 5 mmol/L; Blood Urea Nitrogen 69 mg/dL (9-20); Calcium 8.5 mg/dL (8.4-10.2); Carbon Dioxide 23 mmol/L (22-30); Chloride 108 mmol/L (98-107); Glucose 147 mg/dL (74-99); Non-African American GFR(CKD) 9 (>60 ml/min/1.73 sqM); Potassium 4.4 mmol/L (3.5-5.1); Sodium 136 mmol/L (137-145)
[2024-01-29 07:45] LABS: Vancomycin,Random 17.7 ug/mL
--- NOTE | 2024-01-29 09:11 | P.PN ---
Subjective Patient is seen in follow-up for end-stage renal disease. He is maintained on hemodialysis on Sunday schedule. Wants to go home. Vital signs are stable. General: No acute distress. HEENT: Head exam is unremarkable. LUNGS: No audible rhonchi or wheezes. HEART: Rate and Rhythm are regular. ABDOMEN: Nontender. EXTREMITITES: No edema. Objective - Vital Signs Vital signs: Vital Signs Temp 98.4 F 01/29/24 09:05 Pulse 78 01/29/24 09:05 Resp 18 01/29/24 09:05 BP 107/60 01/29/24 09:05 Pulse Ox 98 01/29/24 09:05 FiO2 Intake & Output 01/28/24 01/29/24 01/29/24 18:59 06:59 18:59 Weight 79.3 kg Other: Voiding Method Toilet # Voids 2 1 - Labs CBC & Chem 7: 01/26/24 09:22 01/29/24 06:33 Labs: Abnormal Lab Results - Last 24 Hours (Table) 01/28/24 01/28/24 01/28/24 Range/Units 06:52 11:44 16:21 Sodium 136 L (137-145) mmol/L Chloride (98-107) mmol/L BUN 68 H (9-20) mg/dL Creatinine 5.63 H (0.66-1.25) mg/dL Glucose 185 H (74-99) mg/dL POC Glucose (mg/dL) 302 H 209 H (70-110) mg/dL 01/28/24 01/29/24 01/29/24 Range/Units 20:22 05:51 06:33 Sodium 136 L (137-145) mmol/L Chloride 108 H (98-107) mmol/L BUN 69 H (9-20) mg/dL Creatinine 5.88 H (0.66-1.25) mg/dL Glucose 147 H (74-99) mg/dL POC Glucose (mg/dL) 176 H 142 H (70-110) mg/dL Microbiology - Last 24 Hours (Table) 01/27/24 11:14 Blood Culture - Preliminary Blood 01/27/24 06:00 Blood Culture - Preliminary Blood 01/25/24 09:54 Blood Culture Gram Stain - Preliminary Blood Blood Culture - Preliminary Presumptive MRSA Assessment and Plan Plan: Assessment: 1. End-stage renal disease maintained on hemodialysis on Sunday schedule. 2. MRSA bacteremia status post removal of permacath January 25, 2024. Catheter tip positive for MRSA. On IV antibiotics. ID following. Most recent blood cultures negative so far. 3. Chronic kidney disease mineral bone disease maintained on PhosLo. Plan: Continue to check daily labs to monitor electrolytes closely. Await ID clearance for permacath placement -to be placed either today or tomorr ow. Monitor vancomycin levels. Dose to be adjusted for renal function. DC'ed IV fluids. DC'ed Motrin.
--- NOTE | 2024-01-29 11:31 | P.PN ---
Subjective Progress Note Date: 01/29/24 63-year-old M with PMH of ESRD, diabetes mellitus, gout who presents to the ED from dialysis because his dialysis access was not working. In the ED patient was given tPA through the dialysis catheter after which the dialysis catheter became patent. In the ED patient was found to have a fever of 102.3. BP 133/77, RR 20, HR 113, 98% on RA. CBC, CMP significant for WBC 13.1, RBC 4.03, Hg 11.7, Hct 35.5, Plt 113, Na 132, Cl 97, bicarb 19, BUN 62, Cr 6.13, glu 248. Lactic acid 1.1. T. Bili 2.1. UA moderate LE. COVID, RSV, Flu negative. C. diff negative. CXR negative. Started on Vancomycin and Cefepim and admitted for further workup and management. BCx MRSA. HD catheter removed and also MRSA positive. 01/28 Patient was seen and examined. Reports no complaints. Wants to go home. Vanc trough 17.7. Maintained on Vancomycin dosed per pharmacy. Repeat BCx 10/6 negative so far at 24H. BMP significant for Na 136, Cl 108, BUN 69, Cr 5.88, glu 147. Discussed with micro lab, BCx 10/6 prelim negative at 24H. Discussed with Dr. Hollingsworth, wait to place permacath. General: non toxic, no distress, appears at stated age Derm: warm, dry Head: atraumatic, normocephalic, symmetric Eyes: EOMI, no lid lag, anicteric sclera Mouth: no lip lesion, mucus membranes moist Cardiovascular: S1S2 reg, no murmur Lungs: CTA bilateral, no rhonchi, no rales, no accessory muscle use Ext: no gross muscle atrophy, no edema, no contractures Neuro: no focal neuro deficits Psych: Alert, oriented, appropriate affect Based on my assessment of this patient, this patient meets a high complexity level of care. MRSA bacteremia secondary to infected hemodialysis catheter with sepsis on arrival: Vancomycin dosed per pharmacy. Monitor renal function while on Vancomycin. ID on board. Repeat BCx 10/6 negative at 24H. ESRD on HD: Nephrology consulted. Plans for permacath when bacteremia cleared. 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 ISS. Accuchecks ACHS. Hypoglycemic precautions. HTN: Metoprolol 50 mg PO BID CODE STATUS: FULL CODE DVT Prophylaxis: SCD GI Prophylaxis: Designated medical POA if patient is not able to make medical decisions for themselves: I have reviewed the following wallpaper consultant notes: Nephrology, ID I have reviewed the results of the following tests: Vanc trough. BMP. Repeat BCx I have ordered the following tests: Vanc trough. BMP I have discussed the care of this patient with the following independent historian: Micro lab. I have independently interpreted the following test below: I have discussed the management of this patient with the following physician: Dr. Hollingsworth. Objective - Vital Signs Vital signs: Vital Signs Temp 98.6 F 01/28/24 20:00 Pulse 78 01/29/24 04:00 Resp 18 01/29/24 04:00 BP 136/68 01/29/24 04:00 Pulse Ox 98 01/29/24 04:00 FiO2 Intake & Output 01/28/24 01/29/24 01/29/24 18:59 06:59 18:59 Weight 79.3 kg Other: Voiding Method Toilet # Voids 2 1 - Labs CBC & Chem 7: 01/26/24 09:22 01/29/24 06:33 Labs: Abnormal Lab Results - Last 24 Hours (Table) 01/28/24 01/28/24 01/28/24 Range/Units 06:52 11:44 16:21 Sodium 136 L (137-145) mmol/L Chloride (98-107) mmol/L BUN 68 H (9-20) mg/dL Creatinine 5.63 H (0.66-1.25) mg/dL Glucose 185 H (74-99) mg/dL POC Glucose (mg/dL) 302 H 209 H (70-110) mg/dL 01/28/24 01/29/24 01/29/24 Range/Units 20:22 05:51 06:33 Sodium 136 L (137-145) mmol/L Chloride 108 H (98-107) mmol/L BUN 69 H (9-20) mg/dL Creatinine 5.88 H (0.66-1.25) mg/dL Glucose 147 H (74-99) mg/dL POC Glucose (mg/dL) 176 H 142 H (70-110) mg/dL Microbiology - Last 24 Hours (Table) 01/27/24 11:14 Blood Culture - Preliminary Blood 01/27/24 06:00 Blood Culture - Preliminary Blood 01/25/24 09:54 Blood Culture Gram Stain - Preliminary Blood Blood Culture - Preliminary Presumptive MRSA
[2024-01-29 11:47] LABS: Glucose,Whole Blood 184 mg/dL (70-110)
[2024-01-29] MEDS: VANCOMYCIN 1,250 MG in SODIUM CHLORIDE 0.9% 250 ML IVPB ONE (12:31)
--- NOTE | 2024-01-29 13:35 | P.PN ---
Subjective Progress Note Date: 01/29/24 Principal diagnosis: Reason for follow-up is MRSA bacteremia Patient is a 63-year-old male with a past medical history significant for end-stage renal disease on hemodialysis through the right IJ permacatheter that has been placed February last year also with a history of diabetes mellitus hypertension patient has been sent to the ER from the dialysis center with the patient was noticed to have fever and apparently the port was not working, patient was started on cefepime vancomycin concerning for line related infection his blood culture subsequently came back positive with MRSA. On today's evaluation that is 01/29/2024, the patient continues to be afebrile, the patient is on room air and breathing comfortably, the Pt denies having any chest pain or cough, the patient denies having any abdominal pain no vomiting or any diarrhea has been reported, patient insisted on going home. Patient did have a creatinine of 5.82 and currently 17.7 potassium is 4.4 Objective - Vital Signs Vital signs: Vital Signs Temp 98.4 F 01/29/24 09:05 Pulse 78 01/29/24 09:05 Resp 18 01/29/24 09:05 BP 107/60 01/29/24 09:05 Pulse Ox 98 01/29/24 09:05 FiO2 Intake & Output 01/28/24 01/29/24 01/29/24 18:59 06:59 18:59 Intake Total 10 Balance 10 Weight 79.3 kg Intake: IV 10 Invasive Line 2 10 Other: Voiding Method Toilet Toilet # Voids 2 1 1 - Exam GENERAL DESCRIPTION: Middle-age male lying in bed in no distress RESPIRATORY SYSTEM: Unlabored breathing , decreased breath sounds at bases HEART: S1 S2 regular rate and rhythm , ABDOMEN: Soft , no tenderness EXTREMITIES: No edema feet - Labs CBC & Chem 7: 01/26/24 09:22 01/29/24 06:33 Labs: Abnormal Lab Results - Last 24 Hours (Table) 01/28/24 01/28/24 01/29/24 Range/Units 16:21 20:22 05:51 Sodium (137-145) mmol/L Chloride (98-107) mmol/L BUN (9-20) mg/dL Creatinine (0.66-1.25) mg/dL Glucose (74-99) mg/dL POC Glucose (mg/dL) 209 H 176 H 142 H (70-110) mg/dL 01/29/24 01/29/24 Range/Units 06:33 11:44 Sodium 136 L (137-145) mmol/L Chloride 108 H (98-107) mmol/L BUN 69 H (9-20) mg/dL Creatinine 5.88 H (0.66-1.25) mg/dL Glucose 147 H (74-99) mg/dL POC Glucose (mg/dL) 184 H (70-110) mg/dL Microbiology - Last 24 Hours (Table) 01/25/24 09:54 Blood Culture Gram Stain - Final Blood Blood Culture - Final Methicillin resist S. aureus 01/27/24 11:14 Blood Culture - Preliminary Blood 01/27/24 06:00 Blood Culture - Preliminary Blood Assessment and Plan (1) Sepsis Current Visit: No Status: Acute Code(s): A41.9 - SEPSIS, UNSPECIFIED ORGANISM SNOMED Code(s): 13078584 (2) MRSA bacteremia Current Visit: Yes Status: Acute Code(s): R78.81 - BACTEREMIA; B95.62 - METHICILLIN RESIS [facility] Code(s): 67567044303972406 (3) Catheter-related bloodstream infection (CRBSI) Current Visit: Yes Status: Acute Code(s): T80.211A - SNOMED Code(s): 119500359 Plan: 1patient presented to hospital with sepsis in this patient who did have fever tachycardia elevated white count source and likely dialysis catheter infection and the patient did have a negative chest x-ray no respiratory symptoms abdominal was soft rectal examination evidence of any cellulitis or joint swelling 2-blood culture coming back positive with MRSA source likely dialysis catheter infection, patient did have removal of his dialysis catheter on 01/25/2024 3patient blood culture from 01/25/2024 positive, unfortunately blood culture ordered on 01/26/2024 did not collected blood cultures from 01 26 are currently pending as the patient does not look toxic potassium is normal if he can hold on dialysis today would recommend placement of the dialysis catheter tomorrow if the blood culture from 01/27/2024 remains to be negative at 72 hours this was explained to the patient in layman term and he agreed to wait till tomorrow Dictation was produced using [employer] dictation software. please excuse any grammatical, word or spelling errors. Time with Patient: Less than 30
[2024-01-29 16:26] LABS: Glucose,Whole Blood 237 mg/dL (70-110)
[2024-01-29 20:15] LABS: Glucose,Whole Blood 153 mg/dL (70-110)
[2024-01-30 06:12] LABS: Glucose,Whole Blood 121 mg/dL (70-110)
[2024-01-30 09:34] VITALS: BMI 27.4
[2024-01-30 09:53] LABS: African American GFR (CKD) 9 (>60 ml/min/1.73 sqM); Anion Gap 9 mmol/L; Blood Urea Nitrogen 79 mg/dL (9-20); Calcium 8.8 mg/dL (8.4-10.2); Carbon Dioxide 26 mmol/L (22-30); Chloride 104 mmol/L (98-107); Glucose 291 mg/dL (74-99); Non-African American GFR(CKD) 8 (>60 ml/min/1.73 sqM); Potassium 4.7 mmol/L (3.5-5.1); Sodium 139 mmol/L (137-145)
--- NOTE | 2024-01-30 10:22 | P.PN ---
Subjective Patient is seen in follow-up for end-stage renal disease. He is maintained on hemodialysis on Sunday schedule. Wants to go home. Otherwise no active complaints. Vital signs are stable. General: No acute distress. HEENT: Head exam is unremarkable. LUNGS: No audible rhonchi or wheezes. HEART: Rate and Rhythm are regular. ABDOMEN: Nontender. EXTREMITITES: No edema. Objective - Vital Signs Vital signs: Vital Signs Temp 98.8 F 01/30/24 08:55 Pulse 78 01/30/24 08:55 Resp 16 01/30/24 08:55 BP 135/66 01/30/24 08:55 Pulse Ox 97 01/30/24 08:55 FiO2 Intake & Output 01/29/24 01/30/24 01/30/24 18:59 06:59 18:59 Intake Total 20 20 10 Balance 20 20 10 Weight 79.5 kg 79.5 kg Intake: IV 20 20 10 Invasive Line 2 20 20 10 Oral 0 Other: Voiding Method Toilet Toilet Toilet # Voids 2 1 # Bowel Movements 1 - Labs CBC & Chem 7: 01/26/24 09:22 01/30/24 09:19 Labs: Abnormal Lab Results - Last 24 Hours (Table) 01/29/24 01/29/24 01/29/24 Range/Units 11:44 16:24 20:09 BUN (9-20) mg/dL Creatinine (0.66-1.25) mg/dL Glucose (74-99) mg/dL POC Glucose (mg/dL) 184 H 237 H 153 H (70-110) mg/dL 01/30/24 01/30/24 Range/Units 06:06 09:19 BUN 79 H (9-20) mg/dL Creatinine 6.71 H (0.66-1.25) mg/dL Glucose 291 H (74-99) mg/dL POC Glucose (mg/dL) 121 H (70-110) mg/dL Microbiology - Last 24 Hours (Table) 01/27/24 11:14 Blood Culture - Preliminary Blood 01/28/24 06:52 Blood Culture - Preliminary Blood 01/27/24 06:00 Blood Culture - Preliminary Blood 01/25/24 09:54 Blood Culture Gram Stain - Final Blood Blood Culture - Final Methicillin resist S. aureus Assessment and Plan Plan: Assessment: 1. End-stage renal disease maintained on hemodialysis on Sunday schedule. 2. MRSA bacteremia status post removal of permacath January 25, 2024. Catheter tip positive for MRSA. On IV antibiotics. ID following. Most recent blood cultures negative so far. 3. Chronic kidney disease mineral bone disease maintained on PhosLo. Plan: Case discussed with ID. Cleared for permacath placement. Case discussed with vascular surgery. Permacath to be placed today. Plan for hemodialysis today once catheter placed. Monitor vancomycin levels. Dose to be adjusted for renal function. DC'ed IV fluids. DC'ed Motrin. Case discussed with primary team.
[2024-01-30 12:03] LABS: Glucose,Whole Blood 245 mg/dL (70-110)
--- NOTE | 2024-01-30 12:10 | P.PN ---
Subjective Progress Note Date: 01/30/24 63-year-old M with PMH of ESRD, diabetes mellitus, gout who presents to the ED from dialysis because his dialysis access was not working. In the ED patient was given tPA through the dialysis catheter after which the dialysis catheter became patent. In the ED patient was found to have a fever of 102.3. BP 133/77, RR 20, HR 113, 98% on RA. CBC, CMP significant for WBC 13.1, RBC 4.03, Hg 11.7, Hct 35.5, Plt 113, Na 132, Cl 97, bicarb 19, BUN 62, Cr 6.13, glu 248. Lactic acid 1.1. T. Bili 2.1. UA moderate LE. COVID, RSV, Flu negative. C. diff negative. CXR negative. Started on Vancomycin and Cefepim and admitted for further workup and management. BCx MRSA. HD catheter removed and also MRSA positive. 01/29 Patient was seen and examined. Reports no complaints. Wants to go home. Maintained on Vancomycin dosed per pharmacy. Repeat BCx 10/6 negative so far at 48H and BCx 10/7 negative at 24H. BMP significant for BUN 79, Cr 6.71, glu 291. Vanc trough 25.7. Discussed with Dr. Hollingsworth, OK with permacath. Discussed with Dr. Shoemaker, plans for HD after. Hopeful discharge today if able to get permacath and successful dialysis session today. General: non toxic, no distress, appears at stated age Derm: warm, dry Head: atraumatic, normocephalic, symmetric Eyes: EOMI, no lid lag, anicteric sclera Mouth: no lip lesion, mucus membranes moist Cardiovascular: S1S2 reg, no murmur Lungs: CTA bilateral, no rhonchi, no rales, no accessory muscle use Ext: no gross muscle atrophy, no edema, no contractures Neuro: no focal neuro deficits Psych: Alert, oriented, appropriate affect Based on my assessment of this patient, this patient meets a high complexity level of care. MRSA bacteremia secondary to infected hemodialysis catheter with sepsis on arrival: Vancomycin dosed per pharmacy. Monitor renal function while on Vancomycin. ID on board. Repeat BCx 10/6 negative at 48H. ESRD on HD: Nephrology consulted. Plans for permacath today. Plans for HD today. 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 ISS. Accuchecks ACHS. Hypoglycemic precautions. HTN: Metoprolol 50 mg PO BID CODE STATUS: FULL CODE DVT Prophylaxis: SCD GI Prophylaxis: Designated medical POA if patient is not able to make medical decisions for themselves: I have reviewed the following financial services education consultant notes: Nephrology. I have reviewed the results of the following tests: BCx 01/26 and 01/27. BMP. Vanc trough. I have ordered the following tests: I have discussed the care of this patient with the following independent historian: RN. I have independently interpreted the following test below: I have discussed the management of this patient with the following physician: Dr. Hollingsworth. Dr. Shoemaker. Objective - Vital Signs Vital signs: Vital Signs Temp 98.4 F 01/29/24 16:24 Pulse 78 01/30/24 04:00 Resp 18 01/30/24 04:00 BP 147/68 01/30/24 04:00 Pulse Ox 96 01/30/24 04:00 FiO2 Intake & Output 01/29/24 01/30/24 01/30/24 18:59 06:59 18:59 Intake Total 20 20 Balance 20 20 Weight 79.5 kg Intake: IV 20 20 Invasive Line 2 20 20 Oral 0 Other: Voiding Method Toilet Toilet # Voids 2 1 # Bowel Movements 1 - Labs CBC & Chem 7: 01/26/24 09:22 01/30/24 09:19 Labs: Abnormal Lab Results - Last 24 Hours (Table) 01/29/24 01/29/24 01/29/24 Range/Units 11:44 16:24 20:09 POC Glucose (mg/dL) 184 H 237 H 153 H (70-110) mg/dL 01/30/24 Range/Units 06:06 POC Glucose (mg/dL) 121 H (70-110) mg/dL Microbiology - Last 24 Hours (Table) 01/27/24 11:14 Blood Culture - Preliminary Blood 01/28/24 06:52 Blood Culture - Preliminary Blood 01/27/24 06:00 Blood Culture - Preliminary Blood 01/25/24 09:54 Blood Culture Gram Stain - Final Blood Blood Culture - Final Methicillin resist S. aureus
[2024-01-30] MEDS: fentaNYL (PF) 50 MCG/ML 2 ML AMP IVP ONE ×2 (15:43)
[2024-01-30] MEDS: MIDAZOLAM 2 MG/2 ML VIAL IVP ONE (15:43)
[2024-01-30] MEDS: LIDOCAINE 1% INJ 10MG/ML (20 ML MDV) SQ ONE ×2 (15:44→15:59)
[2024-01-30] MEDS: IV FLUID CONTINUATION 500 ML IV ONE (15:48)
[2024-01-30] MEDS: LIDOCAINE 1% (10MG/ML) FOR IV START SQ ONE (15:56)
[2024-01-30 17:02] LABS: Glucose,Whole Blood 148 mg/dL (70-110)
--- NOTE | 2024-01-30 17:08 | XR ---
EXAMINATION TYPE: XR chest 1V confirm line [facility] DATE OF EXAM: 01/30/2024 HISTORY: Shortness of breath. COMPARISON: 01/23/24 TECHNIQUE: Single view of the chest is submitted. FINDINGS: Large bore left IJ central venous line With its distal tip overlying the SVC. No evidence of pneumothorax. Demonstrated are scattered senescent parenchymal change. Scattered patchy infiltrates noted. The heart is stable. Hilar and mediastinal structures are within normal limits. Degenerative changes are seen of the dorsal spine. IMPRESSION: 1. Scattered patchy infiltrates noted. [facility], , 01/30/2024 5:06 PM
--- NOTE | 2024-01-30 18:21 | P.DS ---
Providers Date of admission: 01/23/24 13:50 Expected date of discharge: 01/30/24 Attending physician: Will Lopez MD Consults: 01/23/24 13:52 Consult Physician Urgent Consulting Provider: Antonietta Simon Consult Reason/Comments: dialysis Do you want consulting provider notified?: Already Contacted 01/23/24 16:01 Consult Physician Routine Consulting Provider: Lidia Hollingsworth Consult Reason/Comments: fever Do you want consulting provider notified?: Yes 01/25/24 12:44 Consult Physician Routine Consulting Provider: Dominic Juarez Consult Reason/Comments: dialysis catheter removal/pt known to you Do you want consulting provider notified?: Yes 01/30/24 09:48 Consult Physician Urgent Consulting Provider: Dominic Juarez Consult Reason/Comments: permacath Do you want consulting provider notified?: Yes Primary care physician: Nelson Perez MD Hospital Course: 63-year-old M with PMH of ESRD, diabetes mellitus, gout who presents to the ED from dialysis because his dialysis access was not working. In the ED patient was given tPA through the dialysis catheter after which the dialysis catheter became patent. In the ED patient was found to have a fever of 102.3. BP 133/77, RR 20, HR 113, 98% on RA. CBC, CMP significant for WBC 13.1, RBC 4.03, Hg 11.7, Hct 35.5, Plt 113, Na 132, Cl 97, bicarb 19, BUN 62, Cr 6.13, glu 248. Lactic acid 1.1. T. Bili 2.1. UA moderate LE. COVID, RSV, Flu negative. C. diff negative. CXR negative. Started on Vancomycin and Cefepime and admitted for further workup and management. BCx MRSA. HD catheter removed and also MRSA positive. 01/29 Patient was seen and examined. Reports no complaints. Wants to go home. Maintained on Vancomycin dosed per pharmacy. Repeat BCx 10/6 negative so far at 48H and BCx 10/7 negative at 24H. BMP significant for BUN 79, Cr 6.71, glu 291. Vanc trough 25.7. Discussed with Dr. Hollingsworth, [place] with permacath. Discussed with Dr. Shoemaker, plans for HD after. Hopeful discharge today if able to get permacath and successful dialysis session today. Plans to continue Vancomycin during HD script sent by Dr. Hollingsworth to case management. Discharge Plan: Continue HD as scheduled prior to your hospitalization. Follow up with PCP within 1-[address] Hollingsworth with 1 week of discharge. General: non toxic, no distress, appears at stated age Derm: warm, dry Head: atraumatic, normocephalic, symmetric Eyes: EOMI, no lid lag, anicteric sclera Mouth: no lip lesion, mucus membranes moist Cardiovascular: S1S2 reg, no murmur Lungs: CTA bilateral, no rhonchi, no rales, no accessory muscle use Ext: no gross muscle atrophy, no edema, no contractures Neuro: no focal neuro deficits Psych: Alert, oriented, appropriate affect Discharge Diagnosis: MRSA bacteremia secondary to infected hemodialysis catheter with sepsis on arrival ESRD on HD Thrombocytopenia likely due to ESRD Normocytic anemia 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 Patient Condition at Discharge: Stable Plan - Discharge Summary New Discharge Prescriptions: No Action allopurinoL [Zyloprim] 100 mg PO DAILY Metoprolol Tartrate [Lopressor] 50 mg PO BID tab Midodrine [ProAmatine] 2.5 mg PO AC-BID PRN PRN Reason: SBP< 100 Repaglinide [Prandin] 0.5 mg PO AC-BID Ergocalciferol (Vitamin D2) [Drisdol (50,000 Iu)] 1,250 mcg PO Q14D Torsemide [Demadex] 40 mg PO DAILY tab Calcium Acetate [PhosLo] 1,334 mg PO TID-W/MEALS Discharge Medication List allopurinoL [Zyloprim] 100 mg PO DAILY 03/08/18 [History] Ergocalciferol (Vitamin D2) [Drisdol (50,000 Iu)] 1,250 mcg PO Q14D 02/28/23 [History] Metoprolol Tartrate [Lopressor] 50 mg PO BID tab 03/21/23 [Rx] Torsemide [Demadex] 40 mg PO DAILY tab 03/21/23 [Rx] Calcium Acetate [PhosLo] 1,334 mg PO TID-W/MEALS 01/23/24 [History] Midodrine [ProAmatine] 2.5 mg PO AC-BID PRN 01/23/24 [History] Repaglinide [Prandin] 0.5 mg PO AC-BID 01/23/24 [History] Follow up Appointment(s)/Referral(s): Nelson Perez MD [Primary Care Provider] - 1-2 days Lidia Hollingsworth MD [STAFF PHYSICIAN] - 2 Weeks
[2024-01-30 19:51] LABS: Glucose,Whole Blood 115 mg/dL (70-110)
--- NOTE | 2024-01-30 21:38 | OP ---
OPERATIVE REPORT DATE OF SERVICE : PREOPERATIVE DIAGNOSIS: Acute on chronic renal failure. POSTOPERATIVE DIAGNOSIS: Acute on chronic renal failure. PROCEDURES PERFORMED: 1. Attempted right side jugular vein and found to have a high-grade stenosis, which was conformed by superior cavogram. This patient had a dialysis catheter on the right side about 8 months. 2. Ultrasound-guided 23 cm dialysis catheter placed via left jugular approach. DESCRIPTION OF PROCEDURE: This patient was brought to the operating room. Right and left side of the neck was prepped and drapes applied in a sterile manner. This gentleman had a right IJ catheter placed 8 months ago, which was infected and occluded, which was removed. Ultrasound- guided right jugular vein micropuncture guidewire was passed and 4-Maltese dilator on top of guidewire. We could not advance the guidewire. It was going to his right subclavian vein. We injected superior vena cavogram, at jugular vein was a high-grade stenosis at the junction of the superior vena cava. Then, the left side was 1% lidocaine infiltrated with IV sedation. Ultrasound-guided micropuncture introduced into left jugular vein. Micropuncture guidewire was passed, which was parked at the superior vena cava and then we passed a regular guidewire which was part of the inferior vena cava. A tunnel was created. Through the tunnel, we brought 23 cm dialysis catheter. A dilator was advanced on top of the guidewire under fluoroscopy control and sheath was advanced on the top of the guidewire under ultrasound control. Through the sheath, we placed 23 cm dialysis catheter, flushed with heparin saline and hep-locked, secured with 3-0 nylon. Tip of catheter in superior venoatrial junction, flushed with heparin saline. Dressing was applied. The patient had x-ray of the chest. Tolerated the procedure well. MMODL / IJN: [id number] /
[2024-01-30 21:40] LABS: Glucose,Whole Blood 110 mg/dL (70-110)
[2024-01-30 23:51] VITALS: PULSE 77
[2024-01-31 04:53] VITALS: BP 128/70; RESP 15; TEMP 98
[2024-01-31 06:07] LABS: Glucose,Whole Blood 112 mg/dL (70-110)
--- NOTE | 2024-01-31 08:46 | P.PN ---
Subjective Progress Note Date: 01/30/24 Principal diagnosis: Reason for follow-up is MRSA bacteremia Patient is a 63-year-old male with a past medical history significant for end-stage renal disease on hemodialysis through the right IJ permacatheter that has been placed February last year also with a history of diabetes mellitus hypertension patient has been sent to the ER from the dialysis center with the patient was noticed to have fever and apparently the port was not working, patient was started on cefepime vancomycin concerning for line related infection his blood culture subsequently came back positive with MRSA. On today's evaluation that is 01/30/2024, Patient is afebrile patient is currently on room air and denies having any shortness of breath, the patient denies any chest pain or cough, the patient denies any nausea vomiting did not have any abdominal pain and no diarrhea, patient mention feeling better wants to go home. Patient did have creatinine of 6.71 no CBC was done today blood culture from 01/27/2024 has been negative Objective - Vital Signs Vital signs: Vital Signs Temp 98.7 F 01/30/24 12:15 Pulse 79 01/30/24 12:15 Resp 18 01/30/24 12:15 BP 158/79 01/30/24 12:15 Pulse Ox 98 01/30/24 12:15 FiO2 Intake & Output 01/29/24 01/30/24 01/30/24 18:59 06:59 18:59 Intake Total 20 20 10 Balance 20 20 10 Weight 79.5 kg 79.5 kg Intake: IV 20 20 10 Invasive Line 2 20 20 10 Oral 0 Other: Voiding Method Toilet Toilet Toilet # Voids 2 1 1 # Bowel Movements 1 - Exam GENERAL DESCRIPTION: Middle-age male lying in bed in no distress RESPIRATORY SYSTEM: Unlabored breathing , decreased breath sounds at bases HEART: S1 S2 regular rate and rhythm , ABDOMEN: Soft , no tenderness EXTREMITIES: No edema feet - Labs CBC & Chem 7: 01/26/24 09:22 01/30/24 09:19 Labs: Abnormal Lab Results - Last 24 Hours (Table) 01/29/24 01/29/24 01/30/24 Range/Units 16:24 20:09 06:06 BUN (9-20) mg/dL Creatinine (0.66-1.25) mg/dL Glucose (74-99) mg/dL POC Glucose (mg/dL) 237 H 153 H 121 H (70-110) mg/dL 01/30/24 01/30/24 Range/Units 09:19 12:01 BUN 79 H (9-20) mg/dL Creatinine 6.71 H (0.66-1.25) mg/dL Glucose 291 H (74-99) mg/dL POC Glucose (mg/dL) 245 H (70-110) mg/dL Microbiology - Last 24 Hours (Table) 01/27/24 06:00 Blood Culture - Preliminary Blood 01/27/24 11:14 Blood Culture - Preliminary Blood 01/28/24 06:52 Blood Culture - Preliminary Blood 01/25/24 09:54 Blood Culture Gram Stain - Final Blood Blood Culture - Final Methicillin resist S. aureus Assessment and Plan (1) Sepsis Current Visit: No Status: Acute Code(s): A41.9 - SEPSIS, UNSPECIFIED ORGANISM SNOMED Code(s): 10670927 (2) MRSA bacteremia Current Visit: Yes Status: Acute Code(s): R78.81 - BACTEREMIA; B95.62 - METHICILLIN RESIS STAPH INFCT CAUSING DISEASES [facility] SNOMED Code(s): 74084383938337333 (3) Catheter-related bloodstream infection (CRBSI) Current Visit: Yes Status: Acute Code(s): T80.211A - BLOODSTREAM INFECTION DUE TO CENTRAL VENOUS CATHETER, INIT SNOMED Code(s): 598552275 Plan: 1patient presented to hospital with sepsis in this patient who did have fever tachycardia elevated white count source and likely dialysis catheter infection and the patient did have a negative chest x-ray no respiratory symptoms abdominal was soft rectal examination evidence of any cellulitis or joint swelling 2-blood culture coming back positive with MRSA source likely dialysis catheter infection, patient did have removal of his dialysis catheter on 01/25/2024 3patient blood culture from 01/25/2024 positive,, however blood culture from 01/27/2024 has been negative at 72 hours patient has been cleared for placement o f a permacatheter prescription for vancomycin through the dialysis time to which has been provided the telephonic case manager Case has been discussed with the admitting physician Dictation was produced using [employer] dictation software. please excuse any grammatical, word or spelling errors. Time with Patient: Less than 30
--- NOTE | 2024-01-31 10:16 | P.PN ---
Subjective Patient is seen in follow-up for end-stage renal disease. He is maintained on hemodialysis on Sunday schedule. Wants to go home. Permacath placed yesterday and also underwent dialysis yesterday. Vital signs are stable. General: No acute distress. HEENT: Head exam is unremarkable. LUNGS: No audible rhonchi or wheezes. HEART: Rate and Rhythm are regular. ABDOMEN: Nontender. EXTREMITITES: No edema. Objective - Vital Signs Vital signs: Vital Signs Temp 98.0 F 01/31/24 04:00 Pulse 77 01/31/24 04:00 Resp 15 01/31/24 04:00 BP 128/70 01/31/24 04:00 Pulse Ox 97 01/31/24 04:00 FiO2 Intake & Output 01/30/24 01/31/24 01/31/24 18:59 06:59 18:59 Intake Total 60 880 Output Total 2400 Balance 60 -1520 Weight 79.5 kg 78.5 kg Intake: IV 60 Invasive Line 2 10 Oral 480 Hemodialysis 400 Output: Hemodialysis 1400 Hemodialysis Net Amount 1000 Other: Voiding Method Toilet Toilet Diaper # Voids 0 3 - Labs CBC & Chem 7: 01/26/24 09:22 01/30/24 09:19 Labs: Abnormal Lab Results - Last 24 Hours (Table) 01/30/24 01/30/24 01/30/24 Range/Units 12:01 17:01 19:50 POC Glucose (mg/dL) 245 H 148 H 115 H (70-110) mg/dL 01/31/24 Range/Units 06:06 POC Glucose (mg/dL) 112 H (70-110) mg/dL Microbiology - Last 24 Hours (Table) 01/27/24 11:14 Blood Culture - Preliminary Blood 01/28/24 06:52 Blood Culture - Preliminary Blood 01/27/24 06:00 Blood Culture - Preliminary Blood Assessment and Plan Plan: Assessment: 1. End-stage renal disease maintained on hemodialysis on Sunday schedule. 2. MRSA bacteremia status post removal of permacath January 25, 2024. Catheter tip positive for MRSA. On IV antibiotics. ID following. Most recent blood cultures negative so far. Status post permacath placement January 30, 2024. 3. Chronic kidney disease mineral bone disease maintained on PhosLo. Plan: Hemodialysis tomorrow. Potential discharge today.
--- NOTE | 2024-01-31 12:55 | P.DS ---
Providers Date of admission: 01/23/24 13:50 Expected date of discharge: 01/31/24 Attending physician: Will Lopez MD Consults: 01/23/24 13:52 Consult Physician Urgent Consulting Provider: Antonietta Siomn Consult Reason/Comments: dialysis Do you want consulting provider notified?: Already Contacted 01/23/24 16:01 Consult Physician Routine Consulting Provider: Lidia Hollingsworth Consult Reason/Comments: fever Do you want consulting provider notified?: Yes 01/25/24 12:44 Consult Physician Routine Consulting Provider: Dominic Juarez Consult Reason/Comments: dialysis catheter removal/pt known to you Do you want consulting provider notified?: Yes 01/30/24 09:48 Consult Physician Urgent Consulting Provider: Dominic Juarez Consult Reason/Comments: permacath Do you want consulting provider notified?: Yes Primary care physician: Nelson Perez MD Hospital Course: 63-year-old M with PMH of ESRD, diabetes mellitus, gout who presents to the ED from dialysis because his dialysis access was not working. In the ED patient was given tPA through the dialysis catheter after which the dialysis catheter became patent. In the ED patient was found to have a fever of 102.3. BP 133/77, RR 20, HR 113, 98% on RA. CBC, CMP significant for WBC 13.1, RBC 4.03, Hg 11.7, Hct 35.5, Plt 113, Na 132, Cl 97, bicarb 19, BUN 62, Cr 6.13, glu 248. Lactic acid 1.1. T. Bili 2.1. UA moderate LE. COVID, RSV, Flu negative. C. diff negative. CXR negative. Started on Vancomycin and Cefepime and admitted for further workup and management. BCx MRSA. HD catheter removed and also MRSA positive. Repeat BCx 10/6 negative so far at 72H and BCx 10/7 negative at 48H. Underwent permacath and dialysis on 01/29. 01/30 Patient was seen and examined. He reports no complaints. Wanting to go home. Discharge Plan: Continue HD as scheduled prior to your hospitalization. Follow up with PCP within 1-[address] Hollingsworth with 1 week of discharge. General: non toxic, no distress, appears at stated age Derm: warm, dry Head: atraumatic, normocephalic, symmetric Eyes: EOMI, no lid lag, anicteric sclera Mouth: no lip lesion, mucus membranes moist Cardiovascular: S1S2 reg, no murmur Lungs: CTA bilateral, no rhonchi, no rales, no accessory muscle use Ext: no gross muscle atrophy, no edema, no contractures Neuro: no focal neuro deficits Psych: Alert, oriented, appropriate affect Discharge Diagnosis: MRSA bacteremia secondary to infected hemodialysis catheter with sepsis on arrival ESRD on HD Thrombocytopenia likely due to ESRD Normocytic anemia 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 Patient Condition at Discharge: Stable Plan - Discharge Summary New Discharge Prescriptions: Continue allopurinoL [Zyloprim] 100 mg PO DAILY Metoprolol Tartrate [Lopressor] 50 mg PO BID tab Midodrine [ProAmatine] 2.5 mg PO AC-BID PRN PRN Reason: SBP< 100 Repaglinide [Prandin] 0.5 mg PO AC-BID Ergocalciferol (Vitamin D2) [Drisdol (50,000 Iu)] 1,250 mcg PO Q14D Torsemide [Demadex] 40 mg PO DAILY tab Calcium Acetate [PhosLo] 1,334 mg PO TID-W/MEALS Discharge Medication List allopurinoL [Zyloprim] 100 mg PO DAILY 03/08/18 [History] Ergocalciferol (Vitamin D2) [Drisdol (50,000 Iu)] 1,250 mcg PO Q14D 02/28/23 [History] Metoprolol Tartrate [Lopressor] 50 mg PO BID tab 03/21/23 [Rx] Torsemide [Demadex] 40 mg PO DAILY tab 03/21/23 [Rx] Calcium Acetate [PhosLo] 1,334 mg PO TID-W/MEALS 01/23/24 [History] Midodrine [ProAmatine] 2.5 mg PO AC-BID PRN 01/23/24 [History] Repaglinide [Prandin] 0.5 mg PO AC-BID 01/23/24 [History] Follow up Appointment(s)/Referral(s): Nelson Perez MD [Primary Care Provider] - 1-2 days (please call and make appointment) Lidia Hollingsworth MD [STAFF PHYSICIAN] - 2 Weeks (please call and make appointment) Patient Instructions/Handouts: MRSA (Methicillin-Resistant Staphylococcus Aureus) (DC), End Stage Kidney Disease (DC), Hemodialysis (DC) Activity/Diet/Wound Care/Special Instructions: Diet: Renal diet Continue Hemodialysis as scheduled prior to your hospitalization. next day is Wednesday 01/31 You will receive Vancomycin infusions during your dialysis session. Discharge Disposition: HOME SELF-CARE
--- NOTE | 2024-02-04 08:55 | IR ---
EXAMINATION TYPE: IR cvc insert >=5 years DATE OF EXAM: 01/30/2024 FLUOROSCOPY TUNNELED HD CATH INSERTION, 4.1 MINS FLT, 0.030GY. 768 images submitted. [facility], , 02/01/2024 6:23 PM
== END 2024-01-31 10:24 | disposition home or self-care (01) | DRG 314 ==
LOC: EC 09:02 → 1SOBS 13:50 → 3SCARD 17:44
PROVIDERS: ADMIT Internal Medicine; ATTEND Internal Medicine
PROC: 02HV33Z Insertion of Infusion Device into Superior Vena Cava, Percutaneous Approach (ICD-10-PCS; principal; 2024-01-23)
PROC: 5A1D70Z Performance of Urinary Filtration, Intermittent, Less than 6 Hours Per Day (ICD-10-PCS; 2024-01-23)
PROC: 3E04317 Introduction of Other Thrombolytic into Central Vein, Percutaneous Approach (ICD-10-PCS; 2024-01-23)
PROC: 02PYX3Z Removal of Infusion Device from Great Vessel, External Approach (ICD-10-PCS; 2024-01-26)
DX: T80.211A Bloodstream infection due to central venous catheter, initial encounter (principal); A41.02 Sepsis due to Methicillin resistant Staphylococcus aureus; N18.6 End stage renal disease; N17.9 Acute kidney failure, unspecified; I12.0 Hypertensive chronic kidney disease with stage 5 chronic kidney disease or end stage renal disease; I87.1 Compression of vein; T82.41XA Breakdown (mechanical) of vascular dialysis catheter, initial encounter; Y71.2 Prosthetic and other implants, materials and accessory cardiovascular devices associated with adverse incidents; D63.1 Anemia in chronic kidney disease; M89.8X9 Other specified disorders of bone, unspecified site; E73.9 Lactose intolerance, unspecified; E11.22 Type 2 diabetes mellitus with diabetic chronic kidney disease; M10.9 Gout, unspecified; D69.59 Other secondary thrombocytopenia; E11.65 Type 2 diabetes mellitus with hyperglycemia; Z79.4 Long term (current) use of insulin; Z79.899 Other long term (current) drug therapy; Z99.2 Dependence on renal dialysis; Z86.14 Personal history of Methicillin resistant Staphylococcus aureus infection
CPT/HCPCS: 36415; 36558; 37195; 51701; 51798; 71046; 76937; 77001; 80048; 80053; 80202; 81001; 83036; 83605; 83735; 84100; 85025; 87040; 87070; 87077; 87086; 87186; 87324; 87636; 90935; 96361; 96365; 96366; 99285

== ENCOUNTER 2024-02-11 11:45 | Observation (INO) | payer BC ==
--- NOTE | 2024-02-11 12:08 | ED ---
Recheck HPI - General Source: patient, RN notes reviewed Mode of arrival: ambulatory Limitations: no limitations <Jesenia Tao - Last Filed: 02/11/24 12:07> <Taran Bocanegra - Last Filed: 02/11/24 13:38> - General Chief Complaint: Recheck/Abnormal Lab/Rx Stated Complaint: Dialysis port issue Time Seen by Provider: 02/11/24 12:02 - History of Present Illness Initial Comments: Quick [id number] male with a history of end-stage renal disease on hemodialysis, Sunday, resents the emergency department for complaint of dialysis not working. States that he went to dialysis this morning and he was informed that his port was unable to be accessed. He was instructed to report back to dialysis on Sunday to see if they are able to unclog the port. Patient had port placed approximately [address] Mistry. no other acute complaints at this time. (Jesenia Tao) Dictation was produced using [employer] dictation software. please excuse any grammatical, word or spelling errors. Chief Complaint: 63-year-old male presents with malfunctioning HD catheter History of Present Illness: Patient 63-year-old male Dr. Juarez had placed a tunneled percutaneous HD catheter in his left chest 1 week ago. States he went to dialysis today and they were unable to use it. Patient has other complaints. The ROS documented in this emergency department record has been reviewed and confirmed by me. Those systems with pertinent positive or negative responses have been documented in the HPI. All other systems are other negative and/or noncontributory. (Taran Bocanegra) - Related Data Home Medications Medication Instructions Recorded Confirmed allopurinoL [Zyloprim] 100 mg PO DAILY 03/08/18 01/23/24 Ergocalciferol (Vitamin D2) 1,250 mcg PO Q14D 02/28/23 01/23/24 [Drisdol (50,000 Iu)] Calcium Acetate [PhosLo] 1,334 mg PO TID-W/MEALS 01/23/24 01/23/24 Midodrine [ProAmatine] 2.5 mg PO AC-BID PRN 01/23/24 01/23/24 Repaglinide [Prandin] 0.5 mg PO AC-BID 01/23/24 01/23/24 Previous Rx's Medication Instructions Recorded Metoprolol Tartrate [Lopressor] 50 mg PO BID tab 03/21/23 Torsemide [Demadex] 40 mg PO DAILY tab 03/21/23 Allergies Allergy/AdvReac Type Severity Reaction Status Date / Time No Known Allergies Allergy Verified 02/11/24 11:56 Review of Systems ROS Other: All systems not noted in ROS Statement are negative. <Jesenia Tao - Last Filed: 02/11/24 12:07> ROS Other: All systems not noted in ROS Statement are negative. <Taran Bocanegra - Last Filed: 02/11/24 13:38> ROS Statement: Those systems with pertinent positive or pertinent negative responses have been documented in the HPI. Past Medical History Past Medical History: Blood Disorder, Diabetes Mellitus, Hypertension, Renal Disease, Skin Disorder Additional Past Medical History / Comment(s): diabetic ulcers jose feet, iron infusion 3 weeks ago. IRON DEFICIENCY ANEMIA. History of Any Multi-Drug Resistant Organisms: None Reported Date of last positivie culture/infection: 01/23/24 MDRO Source:: blood, catheter tip Past Surgical History: Tonsillectomy Additional Past Surgical History / Comment(s): kidney biopsy Past Anesthesia/Blood Transfusion Reactions: No Reported Reaction Past Psychological History: No Psychological Hx Reported Smoking Status: Never smoker Past Alcohol Use History: None Reported Past Drug Use History: None Reported - Past Family History Mother Family Medical History: Congestive Heart Failure (CHF), Coronary Artery Disease (CAD), Diabetes Mellitus Father Family Medical History: Cancer, Diabetes Mellitus <Jesenia Tao - Last Filed: 02/11/24 12:07> General Exam Limitations: no limitations <Jesenia Tao - Last Filed: 02/11/24 12:07> <Taran Bocanegra - Last Filed: 02/11/24 13:38> - General Exam Comments Initial Comments: Visual Physical Exam Vital signs reviewed General: Well-appearing, nontoxic, no acute distress. Head: Normocephalic, atraumatic Eyes: PERRLA, EOMI ENT: Airway patent Chest: Nonlabored breathing Skin: No visual rash, normal skin tone Neuro: Alert and oriented 3 Musculoskeletal: No gross abnormalities (Jesenia Tao) General: Well-appearing, nontoxic, no acute distress. Head: Normocephalic, atraumatic Eyes: PERRLA, EOMI ENT: Airway patent Chest: Nonlabored breathing Skin: No visual rash, normal skin tone, HD cath in the left chest clean dry and intact Neuro: Alert and oriented 3 Musculoskeletal: No gross abnormalities (Taran Bocanegra) Course <Taran Bocanegra - Last Filed: 02/11/24 13:38> Vital Signs 02/11/24 02/11/24 11:55 13:10 Temperature 98.5 F 97.6 F Pulse Rate 95 90 Respiratory 16 16 Rate Blood Pressure 146/94 175/105 O2 Sat by Pulse 98 97 Oximetry - Reevaluation(s) Reevaluation #1: 02/11/24 13:08 Case discussed with primary surgeon performed procedure states that he will come by and see the patient at the bedside. (Taran Bocanegra) Medical Decision Making <Jesenia Tao - Last Filed: 02/11/24 12:07> - Lab Data Result diagrams: 02/11/24 13:00 <Taran Bocanegra - Last Filed: 02/11/24 13:38> - Medical Decision Making I completed the quick note portion of this chart signed Jesenia Tao PA-C (Jesenia Tao) Was pt. sent in by a medical professional or institution (JOVITA Hughes, SHOP REPAIRER, urgent care, hospital, or correction...) When possible be specific @ -No Did you speak to anyone other than the patient for history (EMS, parent, family, police, friend...)? What history was obtained from this source @ -No Did you review nursing and triage notes (agree or disagree)? Why? @ -I reviewed and agree with nursing and triage notes Were old charts reviewed (outside hosp., previous admission, EMS record, old EKG, old radiological studies, urgent care reports/EKG's, correction records)? Report findings @ -No old charts were reviewed Differential Diagnosis (chest pain, altered mental status, abdominal pain women, abdominal pain men, vaginal bleeding, musculoskeletal, weakness, fever, dyspnea, syncope, headache, dizziness, GI bleed, back pain, seizure, CVA, palpatations, mental health)? @ -Not applicable EKG interpreted by me (3pts min.). @ -None done X-rays interpreted by me (1pt min.). @ -None done CT interpreted by me (1pt min.). @ -None done U/S interpreted by me (1pt. min.). @ -None done What testing was considered but not performed or refused? (CT, X-rays, U/S, labs)? Why? @ -None What meds were considered but not given or refused? Why? @ -None Was smoking cessation discussed for >3mins.? @ -No Were there social determinants of health that impacted care today? How? (Homelessness, low income, unemployed, alcoholism, drug addiction, transportation, low edu. Level, literacy, decrease access to med. care, correction, rehab)? @ -No Was there de-escalation of care discussed even if they declined (Discuss DNR or withdrawal of care, Hospice)? DNR status @ -No What co-morbidities impacted this encounter? (DM, HTN, Smoking, COPD, CAD, Cancer, CVA, ARF, Chemo, Hep., AIDS, mental health diagnosis, sleep apnea, morbid obesity)? @ -ESRD Was patient admitted / discharged? Hospital course, mention meds given and route, prescriptions, significant lab abnormalities, going to OR and other pertinent info. @ -63-year-old male presents with malfunctioning HD catheter. Vital signs stable. Patient has no acute complaints. Physical examination is benign. Vascular surgery evaluated the patient and request that patient be admitted for revision. Nephrology consulted for management of kidney issues. Did you discuss the management of the patient with other professionals (professionals i.e. , PA, SHOP REPAIRER, lab, RT, psych nurse, social media marketing manager, day haul or farm charter bus driver, teacher, mail officer, nurse case manager)? Give summary @ -See above Was critical care preformed (if so, how long)? @ -No Undiagnosed new problem with uncertain prognosis? @ -No Drug Therapy requiring intensive monitoring for toxicity (Heparin, Nitro, Ins ulin, Cardizem)? @ -No Were any procedures done? @ -No Diagnosis/symptom? Acute, or Chronic, or Acute on Chronic? Uncomplicated (without systemic symptoms) or Complicated (systemic symptoms)? @ -Malfunctioning HD cath Side effects of treatment? @ -No Exacerbation, Progression, or Severe Exacerbation? @ -No Poses a threat to life or bodily function? How? (Chest pain, USA, NH, pneumonia, PE, COPD, DKA, ARF, appy, cholecystitis, CVA, Diverticulitis, Homicidal, Suicidal, threat to staff... and all critical care pts) @ -yes (Taran Bocanegra) - Lab Data Lab Results 02/11/24 Range/Units 13:00 Sodium 138 (137-145) mmol/L Potassium 5.1 (3.5-5.1) mmol/L Chloride 105 (98-107) mmol/L Carbon Dioxide 27 (22-30) mmol/L Anion Gap 6 mmol/L BUN 44 H (9-20) mg/dL Creatinine 5.73 H (0.66-1.25) mg/dL Est GFR (CKD-EPI)AfAm 11 (>60 ml/min/1.73 sqM) Est GFR (CKD-EPI)NonAf 10 (>60 ml/min/1.73 sqM) Glucose 179 H (74-99) mg/dL Calcium 8.9 (8.4-10.2) mg/dL Magnesium 2.4 H (1.6-2.3) mg/dL Disposition <Jesenia Tao - Last Filed: 02/11/24 12:07> Decision Time: 13:38 <Taran Bocanegra - Last Filed: 02/11/24 13:38> Clinical Impression: Complication of hemodialysis Disposition: ADMITTED IP TO THIS HOSP Condition: Fair Referrals: Nelson Perez MD [Primary Care Provider] - 1-2 days
[2024-02-11 13:23] LABS: Basophils % (A) 1 %; Eosinophils # (A) 0.2 k/uL (0-0.7); Eosinophils % (A) 3 %; HCT 32.2 % (39.0-53.0); HGB 10.6 gm/dL (13.0-17.5); Lymphocytes % (A) 18 %; MCH 29.5 pg (25.0-35.0); MCHC 32.8 g/dL (31.0-37.0); MCV 89.7 fL (80.0-100.0); Mean Platelet Volume 7.5; Monocytes # (A) 0.3 k/uL (0-1.0); Monocytes % (A) 6 %; Neutrophils # (A) 3.9 k/uL (1.3-7.7); Neutrophils % (A) 70 %; RBC 3.59 m/uL (4.30-5.90); WBC 5.6 k/uL (3.8-10.6)
[2024-02-11 13:32] LABS: African American GFR (CKD) 11 (>60 ml/min/1.73 sqM); Anion Gap 6 mmol/L; Blood Urea Nitrogen 44 mg/dL (9-20); Calcium 8.9 mg/dL (8.4-10.2); Carbon Dioxide 27 mmol/L (22-30); Chloride 105 mmol/L (98-107); Glucose 179 mg/dL (74-99); Magnesium 2.4 mg/dL (1.6-2.3); Non-African American GFR(CKD) 10 (>60 ml/min/1.73 sqM); Potassium 5.1 mmol/L (3.5-5.1); Sodium 138 mmol/L (137-145)
[2024-02-11] MEDS ORDERED: NALOXONE 0.4 MG/ML 1 ML VIAL IV PRN (13:34)
[2024-02-11 13:41] LABS: Platelet Count 201 k/uL (150-450)
[2024-02-11] MEDS: SODIUM CHLORIDE 0.9% 1,000 ML IV SCH (14:04)
--- NOTE | 2024-02-11 14:50 | P.GSCN ---
History of Present Illness History of present illness: 63-year-old gentleman patient came to the emergency room with history of catheter not working on the left side. Patient had infected catheter in the right IJ which was removed in the past we placed a left-sided dialysis catheter patient was having dialysis 3 times a week patient came in with the nonfunctioning dialysis catheter. Medical history history of chronic renal failure On examination neck is supple no bruit appreciated patient has a left IJ catheter Chest is clear good entry both lung. Second sound present Abdomen soft nontender Vascular femorals are 1+ bilateral Plan is placement of a dialysis catheter risk and complication discussed the patient n.p.o. consent for dialysis catheter placement Past Medical History Past Medical History: Blood Disorder, Diabetes Mellitus, Hypertension, Renal Disease, Skin Disorder Additional Past Medical History / Comment(s): diabetic ulcers jose feet, iron infusion 3 weeks ago. IRON DEFICIENCY ANEMIA. History of Any Multi-Drug Resistant Organisms: None Reported Year Discovered:: 01/23/24 MDRO Source:: blood, catheter tip Past Surgical History: Tonsillectomy Additional Past Surgical History / Comment(s): kidney biopsy Past Anesthesia/Blood Transfusion Reactions: No Reported Reaction Past Psychological History: No Psychological Hx Reported Smoking Status: Never smoker Past Alcohol Use History: None Reported Past Drug Use History: None Reported - Past Family History Mother Family Medical History: Congestive Heart Failure (CHF), Coronary Artery Disease (CAD), Diabetes Mellitus Father Family Medical History: Cancer, Diabetes Mellitus Medications and Allergies Home Medications Medication Instructions Recorded Confirmed Type allopurinoL [Zyloprim] 100 mg PO DAILY 03/08/18 02/11/24 History Ergocalciferol (Vitamin D2) 1,250 mcg PO Q14D 02/28/23 02/11/24 History [Drisdol (50,000 Iu)] Metoprolol Tartrate [Lopressor] 50 mg PO BID tab 03/21/23 02/11/24 Rx Torsemide [Demadex] 40 mg PO DAILY tab 03/21/23 02/11/24 Rx Calcium Acetate [PhosLo] 667 - 1,334 mg PO TID-W/MEALS 01/23/24 02/11/24 History Midodrine [ProAmatine] 2.5 mg PO AC-BID PRN 01/23/24 02/11/24 History Repaglinide [Prandin] 0.5 mg PO AC-BID 01/23/24 02/11/24 History Insulin Aspart [NovoLOG Flexpen] See Protocol SQ AC-TID PRN 02/11/24 02/11/24 History Allergies Allergy/AdvReac Type Severity Reaction Status Date / Time No Known Allergies Allergy Verified 02/11/24 11:56 Surgical - Exam Vital Signs Temp Pulse Resp BP Pulse Ox 98.5 F 95 16 146/94 98 02/11/24 11:55 02/11/24 11:55 02/11/24 11:55 02/11/24 11:55 02/11/24 11:55 Results - Labs 02/11/24 13:00 02/11/24 13:00 Abnormal Lab Results - Last 24 Hours (Table) 02/11/24 02/11/24 Range/Units 13:00 13:00 RBC 3.59 L (4.30-5.90) m/uL Hgb 10.6 L (13.0-17.5) gm/dL Hct 32.2 L (39.0-53.0) % BUN 44 H (9-20) mg/dL Creatinine 5.73 H (0.66-1.25) mg/dL Glucose 179 H (74-99) mg/dL Magnesium 2.4 H (1.6-2.3) mg/dL Diabetes panel 02/11/24 Range/Units 13:00 Sodium 138 (137-145) mmol/L Potassium 5.1 (3.5-5.1) mmol/L Chloride 105 (98-107) mmol/L Carbon Dioxide 27 (22-30) mmol/L BUN 44 H (9-20) mg/dL Creatinine 5.73 H (0.66-1.25) mg/dL Glucose 179 H (74-99) mg/dL Calcium 8.9 (8.4-10.2) mg/dL Calcium panel 02/11/24 Range/Units 13:00 Calcium 8.9 (8.4-10.2) mg/dL Pituitary panel 02/11/24 Range/Units 13:00 Sodium 138 (137-145) mmol/L Potassium 5.1 (3.5-5.1) mmol/L Chloride 105 (98-107) mmol/L Carbon Dioxide 27 (22-30) mmol/L BUN 44 H (9-20) mg/dL Creatinine 5.73 H (0.66-1.25) mg/dL Glucose 179 H (74-99) mg/dL Calcium 8.9 (8.4-10.2) mg/dL Adrenal panel 02/11/24 Range/Units 13:00 Sodium 138 (137-145) mmol/L Potassium 5.1 (3.5-5.1) mmol/L Chloride 105 (98-107) mmol/L Carbon Dioxide 27 (22-30) mmol/L BUN 44 H (9-20) mg/dL Creatinine 5.73 H (0.66-1.25) mg/dL Glucose 179 H (74-99) mg/dL Calcium 8.9 (8.4-10.2) mg/dL
[2024-02-11] MEDS: IV FLUID CONTINUATION 1,000 ML IV ONE (14:52)
[2024-02-11] MEDS ORDERED: MIDODRINE 5 MG TAB PO PRN (14:58)
[2024-02-11] MEDS ORDERED: DEXTROSE 50% SYRINGE 50 ML IVP PRN ×2 (15:00)
[2024-02-11] MEDS: TORSEMIDE 20 MG TAB PO SCH (15:31)
[2024-02-11] MEDS: METOPROLOL TARTRATE 50 MG TAB PO SCH (15:32)
[2024-02-11] MEDS: MIDAZOLAM 2 MG/2 ML VIAL IVP ONE (16:56)
[2024-02-11] MEDS: LIDOCAINE 1% INJ 10MG/ML (20 ML MDV) SQ ONE ×3 (16:56→17:13)
[2024-02-11] MEDS: fentaNYL (PF) 50 MCG/ML 2 ML AMP IVP ONE (16:56)
[2024-02-11] MEDS: HEPARIN SODIUM 1,000 UN/ML (10ML VL) MISCELLANE ONE (17:09)
[2024-02-11] MEDS: HEPARIN SODIUM,PORCINE (1 ML) 2,500 UNIT in SODIUM CHLORIDE 0.9% 250 ML IRRIGATION ONE (17:17)
[2024-02-11] MEDS: IOPAMIDOL-370 100ML BTL INJ ONE (17:18)
[2024-02-11 17:34] LABS: Glucose,Whole Blood 108 mg/dL (70-110)
[2024-02-11] MEDS: INSULIN ASPART (NovoLOG) 100 UNIT/ML VIAL SQ SCH (17:34)
--- NOTE | 2024-02-11 19:18 | XR ---
EXAMINATION TYPE: XR chest 1V portable DATE OF EXAM: 02/11/2024 Comparison: 01/30/2024 Clinical History: 63-year-old male confirm placement of dialysis catheter Findings: Right-sided double-lumen hemodialysis catheter tips at the cavoatrial junction and upper right atrium . Removal of the previous left-sided catheter. Heart mild to moderately enlarged with interstitial an d vascular density. No pleural effusion. Impression: 1. Right-sided double-lumen hemodialysis catheter with tips at the upper right atrium/cavoatrial junc tion region. 2. Mild interstitial pulmonary edema. [facility], , 02/11/2024 7:16 PM
[2024-02-11 20:39] LABS: Glucose,Whole Blood 178 mg/dL (70-110)
[2024-02-11] MEDS: ACETAMINOPHEN TAB 325 MG TAB PO PRN (20:42)
[2024-02-11] MEDS: REPAGLINIDE 1 MG TAB PO SCH (20:44)
[2024-02-11] MEDS ORDERED: METOPROLOL TARTRATE 50 MG TAB PO SCH (21:00)
--- NOTE | 2024-02-11 22:21 | IR ---
EXAMINATION TYPE: IR cvc insert central tunneled DATE OF EXAM: 02/11/2024 FLUOROSCOPY CURRENT CATHETER NOT WORKING/DIALYSIS. 41 images provided. [facility], , 02/11/2024 10:18 PM
--- NOTE | 2024-02-12 00:26 | OP ---
OPERATIVE REPORT DATE OF SERVICE : PREOPERATIVE DIAGNOSES: Acute chronic renal failure, malfunction of left IJ catheter. POSTOPERATIVE DIAGNOSES: Acute chronic renal failure, malfunction of left IJ catheter. PROCEDURES: 1. Ultrasound-guided 23 cm dialysis catheter placed, right jugular approach. 2. Removal of the left 28 cm dialysis catheter. DESCRIPTION OF PROCEDURE: The patient was brought to the cardiac catheterization technician. Right and left side of the chest was prepped and draped in the usual sterile manner. 1% lidocaine was infiltrated at the right side of the neck and chest area. Ultrasound-guided micropuncture was introduced into right jugular vein. Micropuncture guidewire was passed and 4-Anguillan dilator was advanced on top of the guidewire. Then, we passed a guidewire which was parked at the inferior vena cava. A tunnel was created. Through the tunnel, we brought 23 cm dialysis catheter. A dilator was advanced on top of the guidewire. Then, sheath was advanced on the top of the guidewire. Through the sheath, we introduced the dialysis catheter. Tip of the catheter in superior vena cavoatrial junction, flushed with heparin saline and hep-lock, secured with 3-0 nylon. Dressing applied. The patient tolerated the procedure well. On the left side of the catheter, incision was made. The left-sided catheter was removed. Pressure dressing applied. Patient tolerated the procedure well. X-ray of the chest. The patient transferred to the room in satisfactory condition. MMJESUS / SERVANDO: [id number] /
[2024-02-12] MEDS: HYDROmorphone 0.5 MG/0.5 ML SYRINGE IVP STA (06:32)
[2024-02-12 07:26] LABS: Glucose,Whole Blood 124 mg/dL (70-110)
[2024-02-12] MEDS ORDERED: VANCOMYCIN IV PER PHARMACY 1 EACH MISC MISCELLANE PRN (10:16)
[2024-02-12] MEDS: VANCOMYCIN 1,000 MG in SODIUM CHLORIDE 0.9% 250 ML IVPB ONE (11:27)
[2024-02-12] MEDS: CALCIUM ACETATE 667 MG TAB PO SCH (11:35)
[2024-02-12] MEDS: allopurinoL 100 MG TAB PO SCH (11:36)
--- NOTE | 2024-02-12 11:48 | P.NPCON ---
History of Present Illness - Reason for Consult end stage renal disease - History of Present Illness Reason for consultation: End-stage renal disease History of present illness: Patient is a 63-year-old male seen in renal consultation for end-stage renal disease. He is maintained on hemodialysis on Sunday schedule. Patient went to hemodialysis yesterday only received show treatment due to malfunctioning dialysis catheter. This was replaced by vascular surgery yesterday and is tolerating dialysis well this morning. Patient recently had a MRSA infection associated with his permacath and has been receiving IV vancomycin outpatient. He still has 2 doses of IV vancomycin left. Patient has no active complaints. No chest pain or shortness of breath. No vomiting or diarrhea. No fever or chills. Vital signs are stable. General: No acute distress. HEENT: Head exam is unremarkable. LUNGS: No audible rhonchi or wheezes. HEART: Rate and Rhythm are regular. ABDOMEN: Nontender. EXTREMITITES: No edema. Past Medical History Past Medical History: Blood Disorder, Diabetes Mellitus, Hypertension, Renal Disease, Skin Disorder Additional Past Medical History / Comment(s): diabetic ulcers jose feet, iron infusion 3 weeks ago. IRON DEFICIENCY ANEMIA. History of Any Multi-Drug Resistant Organisms: None Reported Date of last positivie culture/infection: 01/23/24 MDRO Source:: blood, catheter tip Past Surgical History: Tonsillectomy Additional Past Surgical History / Comment(s): kidney biopsy Past Anesthesia/Blood Transfusion Reactions: No Reported Reaction Past Psychological History: No Psychological Hx Reported Smoking Status: Never smoker Past Alcohol Use History: None Reported Additional Past Alcohol Use History / Comment(s): . Past Drug Use History: None Reported - Past Family History Mother Family Medical History: Congestive Heart Failure (CHF), Coronary Artery Disease (CAD), Diabetes Mellitus Father Family Medical History: Cancer, Diabetes Mellitus Medications and Allergies Home Medications Medication Instructions Recorded Confirmed Type RX: allopurinoL [Zyloprim] 100 mg PO DAILY 03/08/18 02/11/24 History RX: Ergocalciferol (Vitamin D2) 1,250 mcg PO Q14D 02/28/23 02/11/24 History [Drisdol (50,000 Iu)] RX: Metoprolol Tartrate [Lopressor] 50 mg PO BID tab 03/21/23 02/11/24 Rx RX: Torsemide [Demadex] 40 mg PO DAILY tab 03/21/23 02/11/24 Rx RX: Calcium Acetate [PhosLo] 667 - 1,334 mg PO TID-W/MEALS 01/23/24 02/11/24 History RX: Midodrine [ProAmatine] 2.5 mg PO AC-BID PRN 01/23/24 02/11/24 History RX: Repaglinide [Prandin] 0.5 mg PO AC-BID 01/23/24 02/11/24 History Insulin Aspart [NovoLOG Flexpen] See Protocol SQ AC-TID PRN 02/11/24 02/11/24 History Allergies Allergy/AdvReac Type Severity Reaction Status Date / Time No Known Allergies Allergy Verified 02/11/24 11:56 Physical Exam Vitals: Vital Signs Temp Pulse Pulse Resp BP BP Pulse Ox 02/12/24 07:00 98.5 F 95 16 171/77 93 L 02/12/24 05:40 85 02/12/24 02:00 97.6 F 120 H 17 148/83 92 L 02/11/24 20:00 98.0 F 87 17 158/91 94 L 02/11/24 16:06 94 L 02/11/24 16:05 98.1 F 92 18 168/107 90 L 02/11/24 15:13 97.7 F 97 18 167/106 95 02/11/24 15:00 98.1 F 83 18 164/89 92 L 02/11/24 14:00 93 17 156/103 94 L 02/11/24 13:10 97.6 F 90 16 175/105 97 02/11/24 11:55 98.5 F 95 16 146/94 98 Intake and Output 02/11/24 02/12/24 02/12/24 22:59 06:59 14:59 Intake Total 168 Output Total 250 250 Balance -82 -250 Intake: IV 50 Oral 118 Output: Urine 250 250 Other: Weight 80.286 kg Results - Lab Results Most recent lab results Calcium 8.9 mg/dL (8.4-10.2) 02/11/24 13:00 Magnesium 2.4 mg/dL (1.6-2.3) H 02/11/24 13:00 02/11/24 13:00 02/11/24 20:01 Assessment and Plan Plan: Assessment: 1. End-stage renal disease maintained on hemodialysis on Sunday schedule. 2. MRSA bacteremia secondary to permacath infection status post line holiday and placement of new catheter. Maintained on IV vancomycin outpatient. 3. Malfunctioning permacath status post replacement February 11, 2024. 4. Chronic kidney disease mineral bone disease maintained on PhosLo. Plan: Currently seen while undergoing hemodialysis. Another treatment tomorrow per his outpatient schedule. 1 g IV vancomycin at the end of dialysis today. Discharge after dialysis today. Thank you for the consultation. I will continue to follow the patient with you during his hospital stay.
[2024-02-12 12:14] LABS: Glucose,Whole Blood 96 mg/dL (70-110)
--- NOTE | 2024-02-12 12:44 | P.DS ---
Providers Date of admission: 02/11/24 13:35 Attending physician: Dominic Juarez Consults: 02/11/24 13:07 Consult Physician Routine Consulting Provider: Jassi Shoemaker Consult Reason/Comments: esrd Do you want consulting provider notified?: Yes Primary care physician: Nelson Perez MD Patient came to the emergency room patient had a left IJ catheter which was not functioning patient was taken to the Lending Consultant we placed right IJ catheter 23 cm and left side catheter was removed. Patient had a dialysis today. Nephrology Plan is patient is going home today patient will follow-up with nephrology on examination today did not right IJ catheter functioning well abdomen soft nontender chest is clear patient stable to be discharged patient will go for dialysis 3 times a week per nephrology Patient Condition at Discharge: Fair Plan - Discharge Summary Discharge Rx Participant: No New Discharge Prescriptions: No Action allopurinoL [Zyloprim] 100 mg PO DAILY Metoprolol Tartrate [Lopressor] 50 mg PO BID tab Midodrine [ProAmatine] 2.5 mg PO AC-BID PRN PRN Reason: SBP< 100 Repaglinide [Prandin] 0.5 mg PO AC-BID Ergocalciferol (Vitamin D2) [Drisdol (50,000 Iu)] 1,250 mcg PO Q14D Torsemide [Demadex] 40 mg PO DAILY tab Calcium Acetate [PhosLo] 667 - 1,334 mg PO TID-W/MEALS Insulin Aspart [NovoLOG Flexpen] See Protocol SQ AC-TID PRN PRN Reason: Blood Sugar - High Discharge Medication List allopurinoL [Zyloprim] 100 mg PO DAILY 03/08/18 [History] Ergocalciferol (Vitamin D2) [Drisdol (50,000 Iu)] 1,250 mcg PO Q14D 02/28/23 [History] Metoprolol Tartrate [Lopressor] 50 mg PO BID tab 03/21/23 [Rx] Torsemide [Demadex] 40 mg PO DAILY tab 03/21/23 [Rx] Calcium Acetate [PhosLo] 667 - 1,334 mg PO TID-W/MEALS 01/23/24 [History] Midodrine [ProAmatine] 2.5 mg PO AC-BID PRN 01/23/24 [History] Repaglinide [Prandin] 0.5 mg PO AC-BID 01/23/24 [History] Insulin Aspart [NovoLOG Flexpen] See Protocol SQ AC-TID PRN 02/11/24 [History] Follow up Appointment(s)/Referral(s): Nelson Perez MD [Primary Care Provider] - 1-2 days
[2024-02-12 13:07] VITALS: BP 156/82; PULSE 89; RESP 14; TEMP 98.6
[2024-02-17] MEDS ORDERED: ERGOCALCIFEROL 1,250 MCG (50,000 IU) CAPSULE PO SCH (09:00)
== END 2024-02-12 13:40 | disposition home or self-care (01) ==
LOC: EC 11:45 → 6NMEDSUR 13:35
PROVIDERS: ADMIT Surgery Vascular Surgery; ATTEND Surgery Vascular Surgery
DX: E11.22 Type 2 diabetes mellitus with diabetic chronic kidney disease (principal); N18.6 End stage renal disease; T82.41XA Breakdown (mechanical) of vascular dialysis catheter, initial encounter; I12.0 Hypertensive chronic kidney disease with stage 5 chronic kidney disease or end stage renal disease; Y71.2 Prosthetic and other implants, materials and accessory cardiovascular devices associated with adverse incidents; B95.62 Methicillin resistant Staphylococcus aureus infection as the cause of diseases classified elsewhere; R78.81 Bacteremia; M89.8X9 Other specified disorders of bone, unspecified site; Z79.899 Other long term (current) drug therapy; Z99.2 Dependence on renal dialysis
CPT/HCPCS: 96372; 96374; 99285; 36415; 36558; 76937; 77001; 99211; 80048; 83735; 84132; 85025; 83036; 71045; G0378 ×2; C1769 ×2; C1750; J2250; J3370; J1644 ×2; J0690; J2003; J3010; Q9967; 90935

== ENCOUNTER → 2024-03-03 | Outpatient (CLI) | payer BC ==
--- NOTE | 2024-03-03 12:14 | XR ---
EXAMINATION TYPE: XR chest 2V DATE OF EXAM: 03/03/2024 11:51 AM COMPARISON: 02/11/2024 CLINICAL INDICATION: Male, 63 years old with history of J06.9 ACUTE UPPER RESPIRATORY INFECTION, UNSP ECIFI, TECHNIQUE: XR chest 2V view(s) obtained. FINDINGS: The heart size is borderline prominent. The pulmonary vasculature is normal. The lungs are clear. Double-lumen catheters on the right with the tips in the distal superior cava r egion. There is severe within the hepatic flexure the right diaphragm IMPRESSION: 1. No acute pulmonary process. [facility], , 03/03/2024 12:12 PM
== END | disposition home or self-care (01) ==
LOC: RADXRMAIN 11:38
PROVIDERS: ATTEND Family Medicine
DX: J06.9 Acute upper respiratory infection, unspecified (principal)
CPT/HCPCS: 71046

== ENCOUNTER → 2024-07-07 | Day surgery (SDC) | payer BC ==
[~2024-07-07] MED LIST changes: -ALPRAZolam 0.5 MG TAB PO STA; -DESMOPRESSIN ACETATE 22 MCG in SODIUM CHLORIDE 0.9% 50 ML IVPB ONE; -DESMOPRESSIN ACETATE 4 MCG/ML VIAL (MDV) IVPB ONE; +HEPARIN SODIUM,PORCINE 5,000 UNIT/ML 1 ML VIAL ONE; +HYDROmorphone 0.5 MG/0.5 ML SYRINGE IVP PRN; +KETAMINE HCL IN 0.9 % NACL 50 MG/5 ML SYRINGE ONE; +LACTATED RINGERS 1,000 ML IV SCH; +LIDOCAINE 1% (10MG/ML) FOR IV START INTRADERMA PRN; +MIDAZOLAM 2 MG/2 ML VIAL ONE; +PHENYLEPHRINE-0.9% NACL SYG 1,000 MCG/10 ML SYRINGE ONE; +PROPOFOL 10 MG/ML 20 ML VIAL IV ONE; +fentaNYL (PF) 50 MCG/ML 2 ML AMP ONE
[2024-07-07 06:51] LABS: Glucose,Whole Blood 150 mg/dL (70-110)
[2024-07-07] MEDS: SODIUM CHLORIDE 0.9% 1,000 ML IV ONE (06:55)
[2024-07-07] MEDS: METOPROLOL TARTRATE 5 MG/5 ML VIAL IVP STA (06:59)
[2024-07-07] MEDS: ONDANSETRON 4 MG/2 ML VIAL IVP ONE (07:00)
[2024-07-07] MEDS: LIDOCAINE 1% INJ 10MG/ML (20 ML MDV) SQ ONE ×3 (07:57)
[2024-07-07] MEDS: HEPARIN SODIUM,PORCINE (1 ML) 2,000 UNIT in SODIUM CHLORIDE 0.9% 500 ML 500 ML IRRIGATION ONE (08:08)
[2024-07-07] MEDS: ceFAZolin 2 GM in SODIUM CHLORIDE 0.9% 500 ML 500 ML IRRIGATION ONE (08:09)
[2024-07-07 09:08] LABS: Glucose,Whole Blood 134 mg/dL (70-110)
--- NOTE | 2024-07-07 09:10 | P.OP ---
Date of Procedure: 07/07/24 Preoperative Diagnosis: End-stage renal disease. Postoperative Diagnosis: Same. Procedure(s) Performed: Creation of a right upper extremity cephalic vein to radial artery fistula for dialysis purposes. Anesthesia: MAC, local (1% Xylocaine.) Surgeon: Obey Thompson Estimated Blood Loss (ml): 10 Pathology: none sent Condition: stable Disposition: no change Indications for Procedure: Patient is a 64-year-old male with chronic kidney disease requiring dialysis. He is currently being dialyzed via a tunneled hemodialysis catheter. He requires more appropriate dialysis access. He did undergo vein mapping of the upper extremities the patient has adequate vein for dialysis purposes and a cephalic vein to radial artery fistula position. The procedure, risk and benefits were discussed. All questions were answered to patient's satisfaction. Description of Procedure: Patient was brought the op room placed in the supine position administered attended anesthesia delivered by the department of anesthesiology. Patient received intravenously administered prophylactic antibiotics in the perioperative phase. Patient's right upper extremity was sterilely prepped and draped in the usual manner. Equidistant between the distal radial artery and the parallel segment of the cephalic vein 1% Xylocaine was utilized for local anesthesia. Through this anesthetized area skin incision was made carried down through the subcutaneous tissues. Hemostasis was achieved using electrocautery. The dissection was carried down to the level of the cephalic vein. This appeared appropriate for dialysis fistula purposes. The vein was dissected free of investing tissues. Attention was then turned to the radial artery which was dissected free of investing tissues. It had the classic [id number] appearance of diabetic vascular disease although excellent pulse was noted. The artery was dissected free of investing tissues and encircled with Vesseloops. The patient was systemically heparinized. The vein was identified as distally as possible and ligated with silk suture and was marked with marker to avoid any potential twisting. The vein was then transected and easily reach the artery. Vesseloops surrounding the artery were drawn closed and a longitudinal arteriotomy was made and extended with Guido Metzenbaums scissors. Good for and backbleeding was identified. The vein excepted a 2.5 mm vessel dilator without issue. The vein was spatulated to match the arteriotomy and end-to-side anastomosis between the vein and the artery was completed with 6-0 Prolene suture. Just prior to completion anastomotic line the artery was flushed and backbled and no thrombus was retrieved. The anastomotic line was completed and flow restored through the arterial segment. A bleeding point along the anastomotic line was controlled with 6-0 Prolene suture. The vein did dilate appropriately. Excellent Doppler flow as well as a palpable pulse was identified and the vein. No sidebranches were identified. With the above findings noted and hemostasis judged to be adequate the wound was irrigated. Deep tissues were closed with 3-0 Vicryl and dermis was closed with 4-0 Monocryl placed in running fashion. Skin glue and appropriate dressing was applied. Patient tolerated the procedure well and was taken to the recovery area in satisfactory and stable condition. Plan - Discharge Summary Discharge Rx Participant: No New Discharge Prescriptions: No Action allopurinoL [Zyloprim] 100 mg PO DAILY Metoprolol Tartrate [Lopressor] 50 mg PO BID tab Midodrine [ProAmatine] 2.5 mg PO AC-BID PRN PRN Reason: SBP< 100 carvediloL [Carvedilol] 12.5 mg PO DAILY Ergocalciferol (Vitamin D2) [Drisdol (50,000 Iu)] 1,250 mcg PO Q14D Torsemide [Demadex] 40 mg PO DAILY tab Calcium Acetate [PhosLo] 1,334 mg PO TID-W/MEALS Insulin Aspart [NovoLOG Flexpen] See Protocol SQ AC-TID PRN PRN Reason: Blood Sugar - High Discharge Medication List allopurinoL [Zyloprim] 100 mg PO DAILY 03/08/18 [History] Ergocalciferol (Vitamin D2) [Drisdol (50,000 Iu)] 1,250 mcg PO Q14D 02/28/23 [History] Metoprolol Tartrate [Lopressor] 50 mg PO BID tab 03/21/23 [Rx] Torsemide [Demadex] 40 mg PO DAILY tab 03/21/23 [Rx] Calcium Acetate [PhosLo] 1,334 mg PO TID-W/MEALS 01/23/24 [History] Midodrine [ProAmatine] 2.5 mg PO AC-BID PRN 01/23/24 [History] Insulin Aspart [NovoLOG Flexpen] See Protocol SQ AC-TID PRN 02/11/24 [History] carvediloL [Carvedilol] 12.5 mg PO DAILY 07/03/24 [History]
[2024-07-07 09:11] VITALS: TEMP 97
[2024-07-07 10:16] VITALS: RESP 16
[2024-07-07 10:32] VITALS: BP 163/92; PULSE 70
== END ==
LOC: OR 05:40
PROVIDERS: ATTEND Surgery
DX: E11.22 Type 2 diabetes mellitus with diabetic chronic kidney disease (principal); N18.6 End stage renal disease; Z99.2 Dependence on renal dialysis; I25.10 Atherosclerotic heart disease of native coronary artery without angina pectoris; I25.2 Old myocardial infarction; Z79.4 Long term (current) use of insulin; Z79.899 Other long term (current) drug therapy; Z86.73 Personal history of transient ischemic attack (TIA), and cerebral infarction without residual deficits
CPT/HCPCS: 36821; 84132; J2250; J1644; J0690; J2405; J2003; J3010; J2704; J2371

== ENCOUNTER 2024-08-27 11:34 | Emergency (ER) | payer BC ==
[2024-08-27 11:38] VITALS: PULSE 73
--- NOTE | 2024-08-27 13:08 | ED ---
General Adult HPI - General Chief complaint: Weakness Stated complaint: loss of vision, neuro symptoms Time Seen by Provider: 08/27/24 11:40 Source: patient, RN notes reviewed, old records reviewed Mode of arrival: wheelchair Limitations: no limitations - History of Present Illness Initial comments: This is a 64-year-old male who presents to the emergency department stating he went to dialysis and a lot of times after dialysis he becomes very weak and it happened again today but he did have slurred speech for about a half an hour which he has never had before so he was concerned so he came to the emergency department. Patient states that he has no symptoms currently. Patient never had any chest pain or difficulty breathing. Patient never had any extremity weakness or numbness. Patient had no abdominal pain patient has no recent fever chills or cough - Related Data Home Medications Medication Instructions Recorded Confirmed allopurinoL [Zyloprim] 100 mg PO DAILY 03/08/18 08/27/24 Ergocalciferol (Vitamin D2) 1,250 mcg PO Q14D 02/28/23 08/27/24 [Drisdol (50,000 Iu)] Calcium Acetate [PhosLo] 1,334 mg PO TID-W/MEALS 01/23/24 08/27/24 Midodrine [ProAmatine] 2.5 mg PO AC-BID PRN 01/23/24 08/27/24 Insulin Aspart [NovoLOG Flexpen] See Protocol SQ AC-TID PRN 02/11/24 08/27/24 Albuterol Inhaler [Ventolin Hfa 2 puff INHALATION RT-Q4H PRN 08/27/24 08/27/24 Inhaler] Folic Acid/Vit B Complex and C 0.8 mg PO DAILY 08/27/24 08/27/24 [Rema-Betsy Tablet] Loperamide HCl [Imodium A-D] 2 - 4 mg PO QID PRN MDD 16mg 08/27/24 08/27/24 lisinopriL [Zestril] 2.5 mg PO DAILY 08/27/24 08/27/24 Previous Rx's Medication Instructions Recorded Metoprolol Tartrate [Lopressor] 50 mg PO BID tab 03/21/23 Allergies Allergy/AdvReac Type Severity Reaction Status Date / Time No Known Allergies Allergy Verified 08/27/24 13:10 Review of Systems ROS Statement: Those systems with pertinent positive or pertinent negative responses have been documented in the HPI. ROS Other: All systems not noted in ROS Statement are negative. Past Medical History Past Medical History: Blood Disorder, Coronary Artery Disease (CAD), CVA/TIA, Diabetes Mellitus, Dialysis, Hypertension, Myocardial Infarction ([place]), Renal Disease, Skin Disorder Additional Past Medical History / Comment(s): diabetic ulcer middle toe to left foot using medicated honey, healing. will have dialysis 07/05/24. IRON DEFICIENCY ANEMIA. stroke 2021 no residuals. catheter to rt chest for dialysis. pt states his BP has never been high placed on meds for kidneys. BP has been low. renal faillure no stages per pt (ESRD per Giliberto hx) turned down recently as canidate for kidney transplant per pt. gout (per Hx) neuropathy bilateral feet. Last Myocardial Infarction Date:: 02/2022 History of Any Multi-Drug Resistant Organisms: None Reported Date of last positivie culture/infection: 01/23/24 MDRO Source:: blood, catheter tip Past Surgical History: Tonsillectomy Additional Past Surgical History / Comment(s): kidney biopsy. cataract surgery. placement of dialysis catheter in chest total x4. Past Anesthesia/Blood Transfusion Reactions: No Reported Reaction Additional Past Anesthesia/Blood Transfusion Reaction / Comment(s): no blood tranfusion Past Psychological History: No Psychological Hx Reported Smoking Status: Never smoker - Past Family History Mother Family Medical History: Congestive Heart Failure (CHF), Coronary Artery Disease (CAD), Diabetes Mellitus Additional Family Medical History / Comment(s): macular degeneration Father Family Medical History: Cancer General Exam - General Exam Comments Initial Comments: GENERAL: Patient is well-developed and well-nourished. Patient is nontoxic and well- hydrated and is in mild distress. ENT: Neck is soft and supple. No significant lymphadenopathy is noted. Oropharynx is clear. Moist mucous membranes. Neck has full range of motion without eliciting any pain. EYES: The sclera were anicteric and conjunctiva were pink and moist. Extraocular movements were intact and pupils were equal round and reactive to light. Eyelids were unremarkable. PULMONARY: Unlabored respirations. Good breath sounds bilaterally. No audible rales r honchi or wheezing was noted. CARDIOVASCULAR: There is a regular rate and rhythm without any murmurs gallops or rubs. ABDOMEN: Soft and nontender with normal bowel sounds. SKIN: Skin is clear with no lesions or rashes and otherwise unremarkable. NEUROLOGIC: Patient is alert and oriented x3. Cranial nerves II through XII are grossly intact. Motor and sensory are also intact. Normal speech, volume and content. Symmetrical smile. NIH is 0 MUSCULOSKELETAL: Normal extremities with adequate strength and full range of motion. LYMPHATICS: No significant lymphadenopathy is noted PSYCHIATRIC: Normal psychiatric evaluation. Limitations: no limitations Course Vital Signs 08/27/24 11:35 Temperature 97.4 F L Pulse Rate 73 Respiratory 16 Rate Blood Pressure 155/75 O2 Sat by Pulse 99 Oximetry Medical Decision Making - Medical Decision Making EKG is interpreted by myself EKG shows a sinus rhythm at 76 bpm WA interval is 201 QRS is 120 QT interval is 390 QTc is 421. Patient's EKG shows T wave inversions in 2 3 and aVF. Was pt. sent in by a medical professional or institution (, PA, PLATER HELPER, urgent care, hospital, or penitentiary...) When possible be specific @ -No Did you speak to anyone other than the patient for history (EMS, parent, family, police, friend...)? What history was obtained from this source @ -No Did you review nursing and triage notes (agree or disagree)? Why? @ -I reviewed and agree with nursing and triage notes Were old charts reviewed (outside hosp., previous admission, EMS record, old EKG, old radiological studies, urgent care reports/EKG's, penitentiary records)? Report findings @ -No old charts were reviewed Differential Diagnosis? @ -Differential CVA Ischemic stroke, hemorrhagic stroke, brain tumor, atypical migraine, Wernicke's encephalopathy, seizure, multiple sclerosis, meningitis, encephalitis, hypoglycemia, Guillain-Miller, electrolytes disturbance, myasthenia gravis.... This is not meant to be an all-inclusive list EKG interpreted by me (3pts min.). @ -As above X-rays interpreted by me (1pt min.). @ -Chest x-ray shows no acute abnormality CT interpreted by me (1pt min.). @ -CT of the brain shows no acute abnormality U/S interpreted by me (1pt. min.). @ -None done What testing was considered but not performed or refused? (CT, X-rays, U/S, labs)? Why? @ -None What meds were considered but not given or refused? Why? @ -None Did you discuss the management of the patient with other professionals (professionals i.e. , PA, PLATER HELPER, lab, RT, psych nurse, licensed social worker, felt hat inspector and packer, teacher, fisheries enforcement officer, case liner)? Give summary @ -No Was smoking cessation discussed for >3mins.? @ -No Was critical care preformed (if so, how long)? @ -No Were there social determinants of health that impacted care today? How? (Homelessness, low income, unemployed, alcoholism, drug addiction, transport ation, low edu. Level, literacy, decrease access to med. care, assisted, rehab)? @ -No Was there de-escalation of care discussed even if they declined (Discuss DNR or withdrawal of care, Hospice)? DNR status @ -No What co-morbidities impacted this encounter? (DM, HTN, Smoking, COPD, CAD, Cancer, CVA, ARF, Chemo, Hep., AIDS, mental health diagnosis, sleep apnea, morbid obesity)? @ -None Was patient admitted / discharged? Hospital course, mention meds given and route, prescriptions, significant lab abnormalities, going to OR and other pertinent info. @ -I went back and spoke with the patient and indicated to him I thought he should stay for further stroke workup he stated he thinks is just because they took too much fluid off he always has some issues after dialysis and he really believes it was secondary to that so he will go home follow-up as an outpatient and return if there are any further symptoms. Undiagnosed new problem with uncertain prognosis? @ -No Drug Therapy requiring intensive monitoring for toxicity (Heparin, Nitro, Insulin, Cardizem)? @ -No Were any procedures done? @ -No Diagnosis/symptom? @ -TIA Acute, or Chronic, or Acute on Chronic? @ -Acute Uncomplicated (without systemic symptoms) or Complicated (systemic symptoms)? @ -Complicated Side effects of treatment? @ -No Exacerbation, Progression, or Severe Exacerbation? @ -No Poses a threat to life or bodily function? How? (Chest pain, [place], [place], pneumonia, PE, COPD, DKA, ARF, appy, cholecystitis, CVA, Diverticulitis, Homicidal, Suicidal, threat to staff... and all critical care pts) @ -Yes this could lead to a further stroke and significant morbidity or mortality - Lab Data Result diagrams: 08/27/24 13:13 08/27/24 13:13 Lab Results 08/27/24 08/27/24 08/27/24 Range/Units 13:13 13:13 13:13 WBC 5.19 (4.50-10.00) 10*3/uL RBC 3.68 L (4.40-5.60) 10*6/uL Hgb 10.6 L (13.0-17.0) g/dL Hct 31.7 L (39.6-50.0) % MCV 86.1 (80.0-97.0) fL MCH 28.8 (27.0-32.0) pg MCHC 33.4 (32.0-37.0) g/dL Plt Count 157 (140-440) 10*3/uL MPV 11.0 (9.5-12.2) fL Immature Gran % (Auto) 0.4 % Neutrophils % 72.4 % Lymphocytes % 13.5 % Monocytes % 9.2 % Eosinophils % 3.9 % Basophils % 0.6 % Immature Gran # 0.02 (0.00-0.04) 10*3/uL Neutrophils # 3.76 (1.80-7.70) 10*3/uL Lymphocytes # 0.70 L (0.90-5.00) 10*3/uL Monocytes # 0.48 (0.20-1.00) 10*3/uL Eosinophils # 0.20 (0.04-0.35) 10*3/uL Basophils # 0.03 (0.00-0.10) 10*3/uL Sodium 134 L (137-145) mmol/L Potassium 3.8 (3.5-5.1) mmol/L Chloride 102 (98-107) mmol/L Carbon Dioxide 26 (22-30) mmol/L Anion Gap 6 mmol/L BUN 11 (9-20) mg/dL Creatinine 1.62 H (0.66-1.25) mg/dL Est GFR (CKD-EPI)AfAm 51 (>60 ml/min/1.73 sqM) Est GFR (CKD-EPI)NonAf 44 (>60 ml/min/1.73 sqM) Glucose 107 H (74-99) mg/dL Calcium 7.7 L (8.4-10.2) mg/dL Total Bilirubin 1.4 H (0.2-1.3) mg/dL AST 31 (17-59) U/L ALT 16 (4-49) U/L Alkaline Phosphatase 68 (38-126) U/L Creatine Kinase 42 L (55-170) U/L Troponin I 0.029 (0.000-0.034) ng/mL Total Protein 6.7 (6.3-8.2) g/dL Albumin 3.5 (3.5-5.0) g/dL Disposition Clinical Impression: TIA (transient ischemic attack) Disposition: HOME SELF-CARE Condition: Good Instructions (If sedation given, give patient instructions): Transient Ischemic Attack (ED) Is patient prescribed a controlled substance at d/c from ED?: No Referrals: Nelson Perez MD [Primary Care Provider] - 1-2 days Time of Disposition: 14:28
[2024-08-27 13:21] LABS: Basophils # (A) 0.03 10*3/uL (0.00-0.10); Basophils % (A) 0.6 %; Eosinophils % (A) 3.9 %; HCT 31.7 % (39.6-50.0); HGB 10.6 g/dL (13.0-17.0); Lymphocytes % (A) 13.5 %; MCH 28.8 pg (27.0-32.0); MCHC 33.4 g/dL (32.0-37.0); MCV 86.1 fL (80.0-97.0); Monocytes # (A) 0.48 10*3/uL (0.20-1.00); Monocytes % (A) 9.2 %; Neutrophils # (A) 3.76 10*3/uL (1.80-7.70); Neutrophils % (A) 72.4 %; Platelet Count 157 10*3/uL (140-440); RBC 3.68 10*6/uL (4.40-5.60); RDW 13.8 % (11.5-14.5); WBC 5.19 10*3/uL (4.50-10.00)
[2024-08-27 13:32] LABS: ALT 16 U/L (4-49); African American GFR (CKD) 51 (>60 ml/min/1.73 sqM); Anion Gap 6 mmol/L; Blood Urea Nitrogen 11 mg/dL (9-20); Calcium 7.7 mg/dL (8.4-10.2); Carbon Dioxide 26 mmol/L (22-30); Chloride 102 mmol/L (98-107); Creatine Kinase 42 U/L (55-170); Glucose 107 mg/dL (74-99); Non-African American GFR(CKD) 44 (>60 ml/min/1.73 sqM); Sodium 134 mmol/L (137-145); Total Bilirubin 1.4 mg/dL (0.2-1.3)
--- NOTE | 2024-08-27 13:37 | XR ---
EXAMINATION TYPE: XR chest 2V DATE OF EXAM: 08/27/2024 1:31 PM COMPARISON: Chest radiographs from 03/03/2024 TECHNIQUE: XR chest 2V Frontal and lateral views of the chest. CLINICAL INDICATION:Male, 64 years old with history of altered mental status; FINDINGS: Lungs/Pleura: There is no evidence of pleural effusion, focal consolidation, or pneumothorax. Pulmonary vascularity: Unremarkable. Heart/mediastinum: Cardiomediastinal silhouette is enlarged and stable. Musculoskeletal: Multiple level degenerative disc disease changes seen throughout the spine. Other findings: None Lines/Tubes: Right chest hemodialysis catheter with distal tip in the right atrium. Stable position. IMPRESSION: No acute cardiopulmonary disease/process. [facility], , 08/27/2024 1:35 PM
--- NOTE | 2024-08-27 13:47 | CT ---
EXAMINATION TYPE: CT brain wo con DATE OF EXAM: 08/27/2024 COMPARISON: 03/04/2023 CLINICAL INDICATION: Male, 64 years old with history of Neuro deficit, acute, stroke suspected; PHH, Neruo deficits, vision disturbances CT DLP: 1199.4 mGycm Automated exposure control for dose reduction was used. Findings: The ventricles are moderately enlarged and the basal cisterns and sulci over the convexities are mild ly enlarged consistent with moderate generalized atrophy with greater central component. There is moderate decreased density in the periventricular white matter consistent with chronic ische memo white matter demyelination. There is no mass effect or shift of midline structures. There is no acute intra or extra-axial hemorrhage.. The posterior fossa including the brainstem, fourth ventricle and cerebellar pontine angles appear no rmal. Intraorbital contents appear normal and symmetric. There are mild chronic inflammatory changes in the right maxillary sinus. The mastoid air cells are w ell aerated. The calvarium is intact. IMPRESSION: 1. Stable mild to moderate senescent changes. 2. No acute bleed or mass effect. [facility], , 08/27/2024 1:45 PM
[2024-08-27 13:53] LABS: Potassium 3.8 mmol/L (3.5-5.1); Total Protein 6.7 g/dL (6.3-8.2)
[2024-08-27 13:54] LABS: AST 31 U/L (17-59); Albumin 3.5 g/dL (3.5-5.0); Alkaline Phosphatase 68 U/L (38-126)
[2024-08-27 14:47] VITALS: BP 159/82; RESP 18; TEMP 97.9
== END 2024-08-27 14:47 | disposition home or self-care (01) ==
LOC: EC 11:34
DX: G45.9 Transient cerebral ischemic attack, unspecified (principal)
CPT/HCPCS: 36415; 70450; 71046; 80053; 82550; 84484; 85025; 93005; 99285

== ENCOUNTER 2024-10-07 07:24 | Day surgery (SDC) | payer BC ==
[~2024-10-07 07:24] MED LIST changes: +ALPRAZolam 0.25 MG TAB PO PRN; +ALPRAZolam 0.5 MG TAB PO PRN; -HEPARIN SODIUM,PORCINE 5,000 UNIT/ML 1 ML VIAL ONE; -HYDROmorphone 0.5 MG/0.5 ML SYRINGE IVP PRN; -KETAMINE HCL IN 0.9 % NACL 50 MG/5 ML SYRINGE ONE; -LACTATED RINGERS 1,000 ML IV SCH; -LIDOCAINE 1% (10MG/ML) FOR IV START INTRADERMA PRN; -MIDAZOLAM 2 MG/2 ML VIAL ONE; +NITROGLYCERIN SL TABS 0.4 MG TAB SUBLINGUAL PRN; -PHENYLEPHRINE-0.9% NACL SYG 1,000 MCG/10 ML SYRINGE ONE; -PROPOFOL 10 MG/ML 20 ML VIAL IV ONE; -fentaNYL (PF) 50 MCG/ML 2 ML AMP ONE
[2024-10-07] MEDS: IV FLUID CONTINUATION 1,000 ML IV ONE (07:47)
[2024-10-07] MEDS: ASPIRIN 325 MG TAB PO STA (08:06)
[2024-10-07] MEDS: SODIUM CHLORIDE 0.9% 1,000 ML in EMPTY BAG 1 BAG IV SCH (08:07)
[2024-10-07 08:25] LABS: Glucose,Whole Blood 153 mg/dL (70-110)
[2024-10-07 08:29] VITALS: RESP 16; TEMP 97.5
[2024-10-07] MEDS: MIDAZOLAM 2 MG/2 ML VIAL IVP ONE (09:13)
[2024-10-07] MEDS: LIDOCAINE 1% INJ 10MG/ML (20 ML MDV) SQ ONE (09:15)
[2024-10-07] MEDS: HEPARIN SODIUM,PORCINE 10,000 UNIT in SODIUM CHLORIDE 0.9% 1,000 ML IRRIGATION PRN (09:18)
[2024-10-07] MEDS: HEPARIN SODIUM,PORCINE (1 ML) 2,500 UNIT in SODIUM CHLORIDE 0.9% 250 ML IRRIGATION PRN (09:18)
[2024-10-07] MEDS: IOPAMIDOL-370 100ML BTL INJ ONE (09:38)
[2024-10-07] MEDS ORDERED: RX INFO: IV CONTRAST WAS GIVEN 1 EACH MISC MISCELLANE PRN (10:39)
[2024-10-07] MEDS: ATORVASTATIN 80 MG TAB PO STA (11:06)
--- NOTE | 2024-10-07 13:24 | CT ---
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 CT DLP: 443.[address] CTDI: mGy Automated exposure control for dose reduction was used. Findings: The lungs are clear. There are a few scattered micronodules with no suspicious lung mass or nodule. T here is no airspace consolidation. There is no pleural effusion or pneumothorax. There is moderate cardiomegaly. The ascending thoracic aorta is 3.7 cm. There is mild scattered arter iosclerotic calcification of the aortic arch. The main pulmonary artery is dilated 3.5 cm. There is no mediastinal, hilar or axillary adenopathy. There is a right jugular central venous cathet er tip in the SVC/RA junction. Limited scanning through the upper abdomen reveals mild cholelithiasis The osseous structures are intact. IMPRESSION: 1. Mild cardiomegaly. 2. No aneurysm of the thoracic aorta. Mild scattered arteriosclerotic calcifications. 3. 3.4 cm dilatation of the main pulmonary artery. 4. No acute cardiopulmonary disease. No suspicious lung mass or nodule. 5. Cholelithiasis. [facility], , 10/07/2024 1:22 PM
--- NOTE | 2024-10-07 13:35 | US ---
EXAMINATION TYPE: US vein mapping BILAT DATE OF EXAM: 10/07/2024 1:19 PM COMPARISON: NONE CLINICAL INDICATION: Male, 64 years old with history of preop cardiac surgery; preop, Preop- Cardiac Surgery TECHNIQUE: Grayscale and color Doppler imaging of the lower extremity venous system. SIDE PERFORMED: Bilateral FINDINGS: DUPLEX FINDINGS: Greater Saphenous: Color flow seen Lesser Saphenous: Color flow seen Measurements in mm: Right Greater Saphenous: Groin: 5.0 x 4.7 mm High Thigh: 4.4 x 3.7 mm Mid Thigh: 3.3 x 3.1 mm Above Knee: 5.4 x 4.2 mm Knee: 2.8 x 3.0 mm Below Knee: 2.7 x 2.3 mm Mid Calf: 3.1 x 2.8 mm At Ankle: 3.3 x 2.9 mm Left Greater Saphenous: Groin: 9.0 x 8.1 mm High Thigh: 6.4 x 6.1 mm Mid Thigh: 6.9 x 6.6 mm Above Knee: 5.2 x 4.4 mm Knee: 5.6 x 5.5 mm Below Knee: 4.4 x 3.8 mm Mid Calf: 4.3 x 3.6 mm At Ankle: 4.3 x 3.2 mm IMPRESSION: 1. No evidence for occlusion. 2. GSV measurements listed above. 3. Performing surgeon to determine viability as conduit. [facility], , 10/07/2024 1:32 PM
--- NOTE | 2024-10-07 13:36 | US ---
EXAMINATION TYPE: Pre-Operative Non-Invasive Evaluation of the hand for Potential Radial Artery Shad mae, Measurements only DATE OF EXAM: 10/07/2024 1:19 PM CLINICAL INDICATION: Male, 64 years old with history of measurements only; preop, Preop- Cardiac Surg [place] TECHNIQUE:Grayscale and color Doppler imaging of the radial artery(s) SIDE PERFORMED: Left FINDINGS: Dominant hand: Right Duplex Findings: Radial Artery: Color flow seen Measurements in mm, transverse view: Left Radial: mm Proximal: 3.2 x 2.7 mm Mid: 3.2 x 2.5 mm Distal: 3.1 x 2.5 mm Origin not seen due to IV and BP cuff IMPRESSION: 1. No evidence for vascular occlusion. 2. Measurements as described above. [facility], , 10/07/2024 1:33 PM
--- NOTE | 2024-10-07 13:48 | CC ---
CARDIAC CATHETERIZATION REPORT INDICATION: 1. Ischemic cardiomyopathy. 2. Preop cardiac evaluation prior to kidney transplant. PROCEDURE NOTE: After obtaining informed consent, left heart catheterization and coronary angiogram were performed via the right femoral artery using standard Elke catheters. The patient tolerated the procedure well without any obvious immediate complications. A femoral angiogram was performed, and Angio-Seal was deployed for hemostasis. Total sedation time was 18 minutes. We could not do right radial cath as he has dialysis shunt on that side. FINDINGS: 1. Hemodynamics: Left ventricular end-diastolic pressure is 16 mm. There is no significant gradient across the aortic valve. 2. Left ventriculogram: Not performed. 3. Angiographic data: a.Left main coronary artery: Left main coronary artery is a normal-sized vessel, appears calcified, but is free of significant stenosis. Divides into left anterior descending coronary artery and circumflex coronary artery. Circumflex coronary artery is a large vessel that shows 80% to 90% ostial stenosis. LAD gives off a large caliber diagonal branch that has an 80% ostial stenosis, proximal to mid LAD appears diffusely diseased. Mid LAD has a focal 70% stenosis. Right coronary artery is a large dominant vessel that shows mild-to- moderate nonobstructive plaque in its midportion. The PLV branch has an 80% stenosis. CONCLUSION: 1. Severe three-vessel coronary artery disease as described above. 2. Ischemic cardiomyopathy. PLAN: I am going to refer the patient to CT surgery to get a surgical opinion. In the meantime, he will be treated with optimal medical therapy. MMODL / IJN: [id number] /
[2024-10-07 14:42] VITALS: BP 135/92; PULSE 80
== END 2024-10-07 14:37 | disposition home or self-care (01) ==
LOC: CATHCVL 07:24
PROVIDERS: ATTEND Internal Medicine Cardiovascular Disease
DX: I25.5 Ischemic cardiomyopathy (principal); I25.10 Atherosclerotic heart disease of native coronary artery without angina pectoris; I10 Essential (primary) hypertension; E11.9 Type 2 diabetes mellitus without complications; N28.9 Disorder of kidney and ureter, unspecified; Z79.82 Long term (current) use of aspirin; Z79.899 Other long term (current) drug therapy; Z79.4 Long term (current) use of insulin
CPT/HCPCS: 94150; 93458; 93931; 93970; 71250; 99152; C1760; C1769 ×2; C1894 ×2; J2250; J1644 ×2; J2003; Q9967